=== PATIENT | female | born 1950 | race Caucasian/White ===

== ENCOUNTER 2018-05-14 16:00 | Observation (INO) | payer MEDICARE, MEDICAID ==
[~2018-05-14] VITALS: Ht 170.2 cm; Wt 59.9 kg
[~2018-05-14 16:00] MED LIST: ALBU18HF IH; ALBU2.5V2 IH; ALEN70TA5 PO; ASPI-484 PO; CARV3.12 PO; CLOP75TA PO; CLOP75TA52 PO; CLOT15CR6 TP; ELUX75TA PO; FLUT1BLS IH; HYDR25TA9 PO; LACT1CAP34 PO; LEVE500T54 PO; LISI1TAB5 PO; LISI1TAB7 PO; MELO7.5T31 PO; METO25TA4 PO; MONT10TA9 PO; NIFE60TA15 PO; OLOP5DRO OP; OMEP40CA6 PO; RISP1TAB3 PO; SERT100T PO; SIMV40TA3 PO; TRAZ50TA18 PO; UMEC1DIS IH
--- NOTE | 2018-05-14 16:06 | ER.PDOC ---
ROB MIDDLETON MD 05/14/18 1606: General Chief Complaint: Requesting Medical Care Stated Complaint: POSS DEHYDRATION/weakness, LOW BP IN CLINIC TRAVEL OUT OF US: No Time seen by MD: 16:11 Source: patient Exam Limitations: no limitations History of Present Illness Initial Comments TOOK LISINOPRIL-HCTZ -25 MG TODAY BY MISTAKE Severity: mild Modifying Factors: improves with medication, improves with movement, improves with rest Associated Symptoms: weakness Allergies: Coded Allergies: codeine (Verified Allergy, Unknown, 03/29/17) Home Meds Active Scripts Levetiracetam (KEPPRA) 500 Mg Tablet, 500 MG PO BID for 30 Days, #60 TABLET 5 Refills Prov:JAIME MATA MD 04/01/17 Simvastatin (SIMVASTATIN) 40 Mg Tablet, 1 TAB PO HS, #30 TAB 5 Refills Prov:JAIME MATA MD 03/29/17 Reported Medications Carvedilol 3.125MG (COREG 3.125MG) 3.125 Mg Tablet, 1 TAB PO BID, #180 TAB 1 Refill 05/07/18 Umeclidinium Brm/Vilanterol Tr (Anoro Ellipta 62.5-25 Mcg INH) 1 Each Disk.w.dev , 1 EACH IH DAILY24 05/07/18 Albuterol Sulfate (VENTOLIN HFA) 18 Gm Hfa.aer.ad, 18 GM IH Q6HR for SOB 04/16/18 Montelukast Sodium (MONTELUKAST SODIUM) 10 Mg Tablet, 1 TAB PO HS, #30 TAB 5 Refills 04/16/18 Nifedipine (NIFEDIPINE ER) 60 Mg Tablet.er, 90 MG PO DAILY24 04/16/18 Clopidogrel Bisulfate (PLAVIX) 75 Mg Tablet, 1 TAB PO DAILY, #90 TAB 1 Refill 04/16/18 Omeprazole (OMEPRAZOLE) 40 Mg Capsule.dr, 40 MG PO DAILY24, #1 04/16/18 Trazodone Hcl (TRAZODONE HCL) 50 Mg Tablet, 1.5 TAB PO HS, #30 TAB 1 Refill 03/29/17 Sertraline Hcl (ZOLOFT) 100 Mg Tablet, 1 TAB PO DAILY, #30 TAB 5 Refills 03/29/17 Discontinued Reported Medications Lisinopril/Hydrochlorothiazide (LISINOPRIL-HCTZ 20-25 MG TAB) 1 Each Tablet, 1 TAB PO DAILY, #30 TAB 5 Refills 04/16/18 Albuterol Sulfate (ALBUTEROL SULFATE) 2.5 Mg/3 Ml Vial.neb, 2.5 MG IH Q6HR for SOB 04/16/18 Fluticasone/Vilanterol (Breo Ellipta 200-25 Mcg INH) 1 Each Blst.w.dev, 1 EACH IH DAILY24 04/16/18 Eluxadoline (Viberzi) 75 Mg Tablet, 75 MG PO BID, TABLET 04/16/18 Alendronate Sodium (ALENDRONATE SODIUM) 70 Mg Tablet, 70 MG PO Q7D, TABLET 04/16/18 Clotrimazole/Betamethasone Dip (CLOTRIMAZOLE-BETAMETHASONE CRM) 15 Gm Cream..g. , 1 APPLIC TP BID, #30 GRAM 1 Refill 04/16/18 Lactobacillus Acidophilus (Probiotic) 1 Each Capsule, 1 EACH PO DAILY24, CAPSULE 04/16/18 Metoprolol Tartrate 25MG (LOPRESSER 25MG) 25 Mg Tablet, 1 TAB PO BID, #180 TAB 1 Refill 03/29/17 Past Medical History Medical History: other (HYPONATREMIA) Surgical History: , hysterectomy, stent LMP (females 10-50): postmenopause Family History Significant Family History: no pertinent family hx Social History Smoking: non-smoker Drug Use: none Reviewed Nursing Reviewed: Vital Signs, Abn. Noted Review of Systems Constitutional: malaise, weakness EENTM: no symptoms reported Respiratory: no symptoms reported Cardiovascular: no symptoms reported Gastrointestinal: no symptoms reported Musculoskeletal: no symptoms reported Skin: no symptoms reported Psychiatric/Neurological: no symptoms reported Hematologic/Lymphatic: no symptoms reported Immunological/Allergic: no symptoms reported All Other Systems: Reviewed and Negative Physical Exam General Appearance: No Apparent Distress EENT: eyes nml inspection Neck: Non-Tender Respiratory: chest non-tender CVS: reg rate & rhythm Gastrointestinal: Normal Bowel Sounds Rectal: Normal Exam Back: Normal Inspection Extremities: Normal Range of Motion 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 NML as Tested Skin: Normal Color Lymphatic: No Adenopathy Results/Orders Results/Orders Laboratory Tests Test 05/14/18 16:23 White Blood Count 12.4 10^3/uL (4.5-11.0) Red Blood Count 4.32 10^6/uL (4.00-5.20) Hemoglobin 13.0 g/dL (12.0-15.0) Hematocrit 36.9 % (36.0-46.0) Mean Corpuscular Volume 85.4 fL (78-100) Mean Corpuscular Hemoglobin 30.1 pg (26-34) Mean Corpuscular Hemoglobin Concent 35.2 g/dL (33-37) Red Cell Distribution Width 14.0 % (11.5-14.5) Platelet Count 552 10^3/uL (150-400) Mean Platelet Volume 9.2 fL (7.8-11.0) Neutrophils (%) (Auto) 70.0 % (41.0-85.0) Lymphocytes (%) (Auto) 20.8 % (24.0-44.0) Monocytes (%) (Auto) 7.3 % (5.0-12.0) Neutrophils # (Auto) 8.7 10^3/uL (1.8-7.7) Lymphocytes # (Auto) 2.6 10^3/uL (1.0-4.8) Monocytes # (Auto) 0.9 10^3/uL (0.3-0.8) Absolute Immature Granulocyte (auto 0.11 10^3 u/L (0-2) Eosinophils % 0.8 % (0.0-5.0) Basophils % 0.2 % (0.0-0.2) Basophils # 0.0 10^3/uL (0.0-0.1) Eosinophil Count 0.1 10^3/uL (0.0-0.2) Percent Immature Gran (Cell Imm) 0.90 % (0.00-0.50) Helicobacter pylori Screen NEGATIVE (NEGATIVE) Departure Disposition: ADMITTED INPATIENT Impression: Primary Impression: Hypokalemia Additional Impression: Hyponatremia Condition: Stable Referrals: CICI SWARTZ MD (PCP) PRIMARY CARE PROVIDER Duration or Time Spent with Pa: 2 HRS RICKI MEADE MD 05/14/18 9443: General Chief Complaint: Requesting Medical Care Stated Complaint: POSS DEHYDRATION/weakness, LOW BP IN CLINIC History of Present Illness Allergies: Coded Allergies: codeine (Verified Allergy, Unknown, 03/29/17) Home Meds Active Scripts Levetiracetam (KEPPRA) 500 Mg Tablet, 500 MG PO BID for 30 Days, #60 TABLET 5 Refills Prov:JAIME MATA MD 04/01/17 Simvastatin (SIMVASTATIN) 40 Mg Tablet, 1 TAB PO HS, #30 TAB 5 Refills Prov:JAIME MATA MD 03/29/17 Reported Medications Carvedilol 3.125MG (COREG 3.125MG) 3.125 Mg Tablet, 1 TAB PO BID, #180 TAB 1 Refill 05/07/18 Umeclidinium Brm/Vilanterol Tr (Anoro Ellipta 62.5-25 Mcg INH) 1 Each Disk.w.dev , 1 EACH IH DAILY24 05/07/18 Albuterol Sulfate (VENTOLIN HFA) 18 Gm Hfa.aer.ad, 18 GM IH Q6HR for SOB 04/16/18 Montelukast Sodium (MONTELUKAST SODIUM) 10 Mg Tablet, 1 TAB PO HS, #30 TAB 5 Refills 04/16/18 Nifedipine (NIFEDIPINE ER) 60 Mg Tablet.er, 90 MG PO DAILY24 04/16/18 Clopidogrel Bisulfate (PLAVIX) 75 Mg Tablet, 1 TAB PO DAILY, #90 TAB 1 Refill 04/16/18 Omeprazole (OMEPRAZOLE) 40 Mg Capsule.dr, 40 MG PO DAILY24, #1 04/16/18 Trazodone Hcl (TRAZODONE HCL) 50 Mg Tablet, 1.5 TAB PO HS, #30 TAB 1 Refill 03/29/17 Sertraline Hcl (ZOLOFT) 100 Mg Tablet, 1 TAB PO DAILY, #30 TAB 5 Refills 03/29/17 Discontinued Reported Medications Lisinopril/Hydrochlorothiazide (LISINOPRIL-HCTZ 20-25 MG TAB) 1 Each Tablet, 1 TAB PO DAILY, #30 TAB 5 Refills 04/16/18 Albuterol Sulfate (ALBUTEROL SULFATE) 2.5 Mg/3 Ml Vial.neb, 2.5 MG IH Q6HR for SOB 04/16/18 Fluticasone/Vilanterol (Breo Ellipta 200-25 Mcg INH) 1 Each Blst.w.dev, 1 EACH IH DAILY24 04/16/18 Eluxadoline (Viberzi) 75 Mg Tablet, 75 MG PO BID, TABLET 04/16/18 Alendronate Sodium (ALENDRONATE SODIUM) 70 Mg Tablet, 70 MG PO Q7D, TABLET 04/16/18 Clotrimazole/Betamethasone Dip (CLOTRIMAZOLE-BETAMETHASONE CRM) 15 Gm Cream..g. , 1 APPLIC TP BID, #30 GRAM 1 Refill 04/16/18 Lactobacillus Acidophilus (Probiotic) 1 Each Capsule, 1 EACH PO DAILY24, CAPSULE 04/16/18 Metoprolol Tartrate 25MG (LOPRESSER 25MG) 25 Mg Tablet, 1 TAB PO BID, #180 TAB 1 Refill 03/29/17 Departure Time of Disposition: 18:40 Disposition: 09 ADMITTED INPATIENT Impression: Primary Impression: Hypokalemia Additional Impression: Hyponatremia Condition: Stable Referrals: CICI SWARTZ MD (PCP) PRIMARY CARE PROVIDER Comments Admitted to Dr. Call Duration or Time Spent with Pa: 90 mins Critical Care Note Total Time (mins): 90 ROB MIDDLETON MD May 14, 2018 16:06 RICKI MEADE MD May 14, 2018 18:43
[2018-05-14 16:21] VITALS: BP 114/59
--- NOTE | 2018-05-14 16:27 | PCM.EKG ---
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
[2018-05-14 16:29] LABS: BASOPHIL % 0.2 % (0.0-0.2); EOSINOPHIL # 0.1 10^3/uL (0.0-0.2); EOSINOPHIL % 0.8 % (0.0-5.0); LYMPHOCYTES # 2.6 10^3/uL (1.0-4.8); LYMPHOCYTES % 20.8 % (24.0-44.0); MEAN CELL HGB 30.1 pg (26-34); MEAN CELL HGB CONCENTRATION 35.2 g/dL (33-37); MEAN CORP VOLUME 85.4 fL (78-100); MEAN PLATELET VOLUME 9.2 fL (7.8-11.0); MONOCYTES # 0.9 10^3/uL (0.3-0.8); MONOCYTES % 7.3 % (5.0-12.0); NEUTROPHIL # 8.7 10^3/uL (1.8-7.7); WHITE BLOOD CELL 12.4 10^3/uL (4.5-11.0)
[2018-05-14] MEDS ORDERED: NS 1000ML 1,000 ML ONE (16:34)
--- NOTE | 2018-05-14 16:41 | DIREP ---
PROCEDURE:CHEST 1 VIEW COMPARISON:[facility], CR, XRAY CHEST SINGLE VW, 03/29/2017, 12:19 PM. INDICATIONS:hyponatremia FINDINGS: LUNGS/PLEURA:There is hyperinflation of the lung wood consistent with COPD. No infiltrate or pleural effusion is seen. VASCULATURE:Normal. Unremarkable pulmonary vasculature. CARDIAC:Normal. No cardiac silhouette abnormality or cardiomegaly. MEDIASTINUM:Normal. No visible mass or adenopathy. BONES:Normal. No fracture or visible bony lesion. OTHER:Negative. CONCLUSION:There are findings consistent with chronic obstructive pulmonary disease without acute infiltrate. Dictated by: Arnol Dillon M.D. on 05/14/2018 at 04:38 PM
[2018-05-14 16:57] LABS: CALCIUM 9.9 mg/dL (8.4-10.5); CARBON DIOXIDE 22.1 mmol/L (20.0-32)
[2018-05-14] MEDS ORDERED: NS 1000ML 1,000 ML IV ONE (17:00)
--- NOTE | 2018-05-14 18:08 | NUR ---
DR. WILLOUGHBY: EDP ON PHONE WITH DR. WILLOUGHBY. ADMIT UNDER DR. WILLOUGHBY CARE. DX: HYPOKALEMIA.
[2018-05-14] MEDS ORDERED: POTASSIUM CHLORIDE ONE (18:20)
[2018-05-14] MEDS ORDERED: KCL 20MEQ/100ML 100 ML IV ONE (18:22)
--- NOTE | 2018-05-14 18:39 | NUR ---
PO KCL: ORDER NOT TRANSFERRING OVER TO MAR. KCL 40 MEQ GIVEN PER EDP ORDERS.
--- NOTE | 2018-05-14 18:40 | NUR ---
KCL IV: MED ORDERS NOT TRANSFERRING OVER TO EMAR. KCL 20 MEQ/100ML NS STARTED PER EDP ORDERS.
[2018-05-14] MEDS ORDERED: KCL 20MEQ/100ML 100 ML IV STA (18:43)
[2018-05-14] MEDS ORDERED: KLOR-CON 10 PO STA (18:43)
[2018-05-14] MEDS ORDERED: NS 1000ML/KCL 20MEQ 1,000 ML IV STA (18:43)
--- NOTE | 2018-05-14 18:50 | NUR ---
ARRIVAL ARRIVAL TO FLOOR VIA W/C. REPORT RECEIVED FROM CARLOS PETERSEN ASSUMED CARE OF PT
[2018-05-14 19:05] VITALS: BP 140/63
[2018-05-14] MEDS ORDERED: PROTONIX PO SCH (21:30)
[2018-05-14] MEDS ORDERED: PROCARDIA PO SCH (21:30)
[2018-05-14] MEDS ORDERED: POTASSIUM CHLORIDE PO SCH (21:30)
[2018-05-14] MEDS ORDERED: MAGNESIUM SULFATE 50 ML IV ONE (21:30)
--- NOTE | 2018-05-14 22:34 | HPH ---
ADMIT DATE: 05/14/2018 The patient is being placed under observation to Med-Surg. PRIMARY CARE PHYSICIAN: Gerardo. ADMITTING DIAGNOSES: Hypokalemia with hyponatremia with weakness and COPD. HISTORY OF PRESENT ILLNESS: Please refer to the H and P that was done by Dr. Struod on 04/17/2018 when she was admitted for a similar problem and this will be an addendum since this is less than a 30-day readmit and the addendum is as follows: The patient has been in and out of the hospital for 3 times already in the past couple of months for some electrolyte disturbances and her feeling weak with having diarrhea and taking thiazide diuretics. For some reason, this last visit, she was told to stop her thiazide diuretic and she was improving with her electrolytes. She went home and forgot and started to take a thiazide diuretic for the past 3 days. She states that she has been drinking lots of water to stay hydrated as well. She felt very weak again and came back to the ER with a low potassium and sodium levels. She denies any fevers. No chest pain. No shortness of breath. No abdominal pains. No diarrhea. No constipation. No melena. No hematochezia. No dysuria. PAST MEDICAL HISTORY: Significant for hypertension, hyperlipidemia, COPD with tobacco dependence, peripheral vascular disease, GERD. She does have a history of hepatitis C, but she was successfully treated per her, depression, osteoporosis. PAST SURGICAL HISTORY: Hysterectomy, bilateral wrist ORIF and tibial ORIF. SOCIAL HISTORY: She smokes, but up to a pack a day, lives at home. No alcohol, no illicit drugs reported. ALLERGIES: CODEINE. FAMILY HISTORY: Asked and noncontributory for this admission. PHYSICAL EXAMINATION: VITAL SIGNS: When she came in temperature was 97.7, pulse rate 61, respirations 18, blood pressure 114/59, O2 sats of 98%. My physical exam is as follows: GENERAL: She is in no acute distress. She is awake. She is alert. HEENT: Oropharynx is clear. NECK: Supple. No JVD. No bruits. HEART: S1, S2 audible. LUNGS: Clear bilaterally. ABDOMEN: Good bowel sounds, soft abdomen. No rebound. No guarding. EXTREMITIES: She has some mild edema to her legs with some varicosities noted. LABORATORY DATA: Labs were drawn. White count was 12,400, hemoglobin of 13 and platelet count of 552. Coags were normal. D-dimer is elevated at 0.82. Chemistry panel shows sodium 125, potassium 2.4, BUN 7, creatinine 1.37. Troponin was 0.06. ProBNP was 1283. Albumin 2.7. She had a chest x-ray that did not show any acute abnormalities. Some COPD noted. ASSESSMENT AND PLAN: We have this female with hypokalemia and hyponatremia with weakness with water intoxication. We will withhold water on her, replace potassium with sodium and follow her clinically in the hospital overnight and see if she will be ready for discharge by tomorrow. Yi Call MD DR: CHARISMA/sania JOB# [id number]
[2018-05-14 23:46] VITALS: BP 122/73
[2018-05-15] MEDS ORDERED: VENTOLIN HFA IH SCH
[2018-05-15 03:41] VITALS: BP 144/60
[2018-05-15 07:55] VITALS: BP 132/61
[2018-05-15] MEDS ORDERED: KLOR-CON 10 PO SCH (09:00)
[2018-05-15] MEDS ORDERED: ZOLOFT PO SCH (09:00)
[2018-05-15] MEDS ORDERED: KEPPRA PO SCH (09:00)
[2018-05-15] MEDS ORDERED: PLAVIX PO SCH (09:00)
[2018-05-15] MEDS ORDERED: COREG PO SCH (09:00)
--- NOTE | 2018-05-15 10:00 | NUR ---
DISCHARGE PLAN CM VISITED WITH PATIENT CONCERNING HER DISCHARGE PLAN AND NEED. PATIENT STATED SHE IS STILL LIVING @ HOME WITH HER ROOMMATES. SHE STATED SHE IS ROBISON INDEPENDENT ON ADLS AND SHE HAS A WALKER WITH WHEELS THAT SHE USES NEEDED FOR AMBULATION ASSISTANCE. PATIENT IS RECEIVING FOOD STAMP BENEFITS AND HAS CURRENT HEALTH INSURANCE. SHE DENIES NEEDING ADDITIONAL ASSISTANCE/RESOURCES @ THIS TIME. PATIENT IS ALSO CURRENTLY ON [facility] WITH PT, OT AND SPEECH THERAPY SERVICES. CURRENT GOAL FOR PATIENT IS TO DISCHARGE BACK HOME TO [facility]OUTINE CARE WITH CURRENT SERVICES IN PLACE PER PATIENT REQUEST. PATRIC REACHED OUT TO [facility] AND SPOKE TO KALLI PETERSEN WHO STATED THEY WOULD WATCH PATIENT CLOSELY ONCE DISCHARGE @ HOME, BUT NURSING HAD CONCERNS REGARDING HER HOME ENVIRONMENT. PATRIC THEN REACHED OUT TO Ruma CROWELL LMSW REGARDING 'S CONCERNS AND CONSULT RECEIVED PER DR. WILLOUGHBY FOR MONETARY ABUSE. PTARIC WILL CONTINUE TO FOLLOW.
[2018-05-15 10:45] VITALS: BP 154/75
--- NOTE | 2018-05-15 10:48 | NUR ---
SOCIAL SERVICE CONSULT: SS RECEIVED CONSULT DUE TO SUSPECTED MONETARY ABUSE. SS VISITED WITH PT LAST HOSPITAL ADMISSION REGARDING CONCERNS WITH PT'S HOME SITUATION AND CONSULTED [facility] WHOM STATED THEY WOULD KEEP AN EYE OUT ON PT AND MONITOR HER ROOMMATES/LIVING CONDITION. SINCE PT WAS READMITTED AND THERE ARE STILL CONCERNS REGARDING HOME SITUATION AND FINANCIAL EXPLOITATION, AN APS REPORT WAS PLACE SO THEY CAN FURTHER INVESTIGATION AND ASSIST PT. APS REPORT WAS PLACE WITH [employer] WORKER ID [id number], REFERENCE NUMBER [id number].
[2018-05-15] MEDS ORDERED: ZOFRAN IV PRN (13:00)
[2018-05-15] MEDS ORDERED: POTA20TA14 PO (13:14)
--- NOTE | 2018-05-15 15:10 | NUR ---
DISCHARGE PT D/C AT THIS TIME. EDUCATED PT ON NEW PRESCRIPTION FOR POTASSIUM. STATES UNDERSTANDING AND DENIES ANY QUESTIONS. WHEELED TO PRIVATE VEHICLE IN STABLE CONDITION.
[2018-05-15] MEDS ORDERED: VENTOLIN IH SCH (15:11)
[2018-05-15 15:13] VITALS: BP 154/75
--- NOTE | 2018-05-15 17:48 | DSH ---
DATE OF DISCHARGE: 05/15/2018 ADMITTING DIAGNOSES: Weakness with diarrhea and hypokalemia, hyponatremia with water intoxication and history of chronic obstructive pulmonary disease. DISCHARGE DIAGNOSES: Hypokalemia and hyponatremia, resolved with chronic diarrhea and chronic obstructive pulmonary disease. HOSPITAL COURSE: As follows: The patient is a 68-year-old female who has been in the hospital 4 times now in the past 2 months for similar problems. She does have chronic diarrhea and she came in with potassium of 2.4 with low sodium levels. She admitted to me that she was drinking lots of water to stay hydrated. I explained to her that: Due to her electrolyte disturbances that she should not be drinking a lot of water anymore to stay hydrated that she should hydrate with other liquids. We gave her IV sodium chloride with potassium IV and p.o. Her potassium today is normal at 3.8 and her sodium levels are normal too. I explained to her again to continue her home diet except not to drink free water by itself a lot at home and she understands this. She did complain about her chronic diarrhea and I explained to her that since she has been scoped in the past by GI that she probably needs to go back to GI to get scoped again to deal with her chronic nausea and chronic diarrhea, but at this time her sodium and her potassium are both corrected. She will be discharged today. I am going to put her on some potassium pills to go home with, stay hydrated, stay away from lot of free water and I have asked her to follow up with her PCP, Dr. Carrillo, next week, so she can be referred to her GI specialist in the near future for possible endoscopy for her chronic nausea and diarrhea. Yi Call MD DR: CHARISMA/sania JOB# [id number]
[2018-05-15] MEDS ORDERED: ZOCOR PO SCH (21:00)
[2018-05-15] MEDS ORDERED: DESYREL PO SCH (21:00)
[2018-05-15] MEDS ORDERED: SINGULAIR PO SCH (21:00)
== END 2018-05-15 15:31 | disposition home or self-care (01) ==
LOC: ER 16:00 → UNDOADMOB 18:20 → MS 18:20
PROVIDERS: ADMIT Pediatrics; ATTEND Pediatrics
DX: E87.6 Hypokalemia (principal); E87.1 Hypo-osmolality and hyponatremia; E78.5 Hyperlipidemia, unspecified; F17.210 Nicotine dependence, cigarettes, uncomplicated; I10 Essential (primary) hypertension; I73.9 Peripheral vascular disease, unspecified; J44.9 Chronic obstructive pulmonary disease, unspecified; K21.9 Gastro-esophageal reflux disease without esophagitis; M81.0 Age-related osteoporosis without current pathological fracture; F32.9 Major depressive disorder, single episode, unspecified; R19.7 Diarrhea, unspecified; Z88.8 Allergy status to other drugs, medicaments and biological substances; Z90.710 Acquired absence of both cervix and uterus
CPT/HCPCS: 36415; 71045; 80048; 80053; 82550; 82553; 83880; 84484; 85025; 85379; 85610; 85730; 86677; 93005; 96365; 96366; 96368; 96375; 99291; 99292; G0378; J2405; J3475; J3480; J7030

== ENCOUNTER 2018-05-20 18:09 | Emergency (ER) | payer MEDICARE, MEDICAID ==
[~2018-05-20] VITALS: Ht 170.2 cm; Wt 56.2 kg
[~2018-05-20 18:09] MED LIST changes: +POTA20TA14 PO
[2018-05-20 18:49] VITALS: BP 147/84
[2018-05-20] MEDS ORDERED: ZOFRAN ODT ONE (18:53)
--- NOTE | 2018-05-20 18:57 | NUR ---
CLINT VERBAL ORDER FROM DR GONZALEZ FOR ZOFRAN ODT 4MG GIVEN AT THIS TIME.
[2018-05-20] MEDS ORDERED: ZOFRAN ODT SL STA (19:12)
--- NOTE | 2018-05-20 19:22 | ER.PDOC ---
General Chief Complaint: General Complaint Stated Complaint: LOW BP TRAVEL OUT OF US: No Time seen by MD: 19:00 Source: patient History of Present Illness Initial Comments pt states that she has chronic diarrhea and has nausea and vomiting such that she has problems with hypokalemia and dehydration Timing/Duration: constant Severity: mild Modifying Factors: improves with eating Allergies: Coded Allergies: codeine (Verified Allergy, Unknown, 03/29/17) Home Meds Active Scripts Potassium Chloride (POTASSIUM CHLORIDE) 20 Meq Tab.er.prt, 20 MEQ PO DAILY24, # 30 TAB 1 Refill Prov:JAYLEN WILLOUGHBY MD 05/15/18 Levetiracetam (KEPPRA) 500 Mg Tablet, 500 MG PO BID for 30 Days, #60 TABLET 5 Refills Prov:JAIME MATA MD 04/01/17 Simvastatin (SIMVASTATIN) 40 Mg Tablet, 1 TAB PO HS, #30 TAB 5 Refills Prov:JAIME MATA MD 03/29/17 Reported Medications Carvedilol 3.125MG (COREG 3.125MG) 3.125 Mg Tablet, 1 TAB PO BID, #180 TAB 1 Refill 05/07/18 Umeclidinium Brm/Vilanterol Tr (Anoro Ellipta 62.5-25 Mcg INH) 1 Each Disk.w.dev , 1 EACH IH DAILY24 05/07/18 Albuterol Sulfate (VENTOLIN HFA) 18 Gm Hfa.aer.ad, 18 GM IH Q6HR for SOB 04/16/18 Montelukast Sodium (MONTELUKAST SODIUM) 10 Mg Tablet, 1 TAB PO HS, #30 TAB 5 Refills 04/16/18 Nifedipine (NIFEDIPINE ER) 60 Mg Tablet.er, 90 MG PO DAILY24 04/16/18 Clopidogrel Bisulfate (PLAVIX) 75 Mg Tablet, 1 TAB PO DAILY, #90 TAB 1 Refill 04/16/18 Omeprazole (OMEPRAZOLE) 40 Mg Capsule.dr, 40 MG PO DAILY24, #1 04/16/18 Trazodone Hcl (TRAZODONE HCL) 50 Mg Tablet, 1.5 TAB PO HS, #30 TAB 1 Refill 03/29/17 Sertraline Hcl (ZOLOFT) 100 Mg Tablet, 1 TAB PO DAILY, #30 TAB 5 Refills 03/29/17 Past Medical History Medical History: asthma, CVA/TIA/stroke, cardiac problems, COPD, GERD, high cholesterol, hypertension Surgical History: cardiac cath, appendectomy, hysterectomy LMP (females 10-50): hysterectomy Social History Smoking: cigarettes, less than 1 pack/day Alcohol Use: none Drug Use: marijuana Review of Systems Constitutional: weakness EENTM: no symptoms reported Respiratory: no symptoms reported Cardiovascular: no symptoms reported Gastrointestinal: see HPI, diarrhea, nausea, vomiting Skin: no symptoms reported Psychiatric/Neurological: no symptoms reported Hematologic/Lymphatic: no symptoms reported Physical Exam General Appearance: Mild Distress EENT: eyes nml inspection Neck: Non-Tender, Full Range of Motion CVS: reg rate & rhythm, no murmur, no gallop Rectal: Normal Exam Back: Normal Inspection Extremities: Normal Range of Motion Neurologic/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 NML as Tested, No Motor/Sensory Deficits Skin: Normal Color Lymphatic: No Adenopathy Results/Orders Results/Orders Laboratory Tests Test 05/20/18 19:23 05/20/18 20:12 White Blood Count 9.3 10^3/uL (4.5-11.0) Red Blood Count 3.83 10^6/uL (4.00-5.20) Hemoglobin 11.8 g/dL (12.0-15.0) Hematocrit 34.0 % (36.0-46.0) Mean Corpuscular Volume 88.8 fL (78-100) Mean Corpuscular Hemoglobin 30.8 pg (26-34) Mean Corpuscular Hemoglobin Concent 34.7 g/dL (33-37) Red Cell Distribution Width 14.3 % (11.5-14.5) Platelet Count 520 10^3/uL (150-400) Mean Platelet Volume 9.6 fL (7.8-11.0) Neutrophils (%) (Auto) 63.1 % (41.0-85.0) Lymphocytes (%) (Auto) 24.9 % (24.0-44.0) Monocytes (%) (Auto) 10.1 % (5.0-12.0) Neutrophils # (Auto) 5.8 10^3/uL (1.8-7.7) Lymphocytes # (Auto) 2.3 10^3/uL (1.0-4.8) Monocytes # (Auto) 0.9 10^3/uL (0.3-0.8) Absolute Immature Granulocyte (auto 0.03 10^3 u/L (0-2) Eosinophils % 1.1 % (0.0-5.0) Basophils % 0.5 % (0.0-0.2) Basophils # 0.1 10^3/uL (0.0-0.1) Eosinophil Count 0.1 10^3/uL (0.0-0.2) Sodium Level 133 mmol/L (132-145) Potassium Level 3.8 mmol/L (3.6-5.2) Chloride Level 102.0 mmol/L (96-109) Carbon Dioxide Level 21.1 mmol/L (20.0-32) Anion Gap 13.7 Blood Urea Nitrogen 5 mg/dL (7-18) Creatinine 1.09 mg/dL (0.59-1.40) Estimated GFR () 60.6 (>/=60) BUN/Creatinine Ratio 4.0 Glucose Level 110 mg/dL (70-110) Calcium Level 10.0 mg/dL (8.4-10.5) Total Bilirubin 0.3 mg/dL (0.2-1.0) Aspartate Amino Transf (AST/SGOT) 12 U/L (0-35) Alanine Aminotransferase (ALT/SGPT) 13 U/L (12-78) Alkaline Phosphatase 100 U/L (50-136) Total Protein 6.2 g/dL (6.4-8.2) Albumin 2.5 g/dL (3.4-5.0) Globulin 3.7 Percent Immature Gran (Cell Imm) 0.30 % (0.00-0.50) Urine Collection Type VOID Urine Color YELLOW (YELLOW) Urine Appearance CLOUDY (CLEAR) Urine Bilirubin 1 MG/DL (NEGATIVE) Urine Ictotest NEGATIVE (NEGATIVE) Urine Ketones 5 mg/dL (NEGATIVE) Urine Specific [place] 1.020 (1.005-1.035) Urine pH 5 (5.0-6.0) Urine Protein 30 mg/dL (NEGATIVE) Urine Urobilinogen 4.0 (NEGATIVE) Urine Nitrate NEGATIVE (NEGATIVE) Urine Leukocyte Esterase 100/ul 1+ (NEGATIVE) Urine Blood NEGATIVE (NEGATIVE) Urine RBC 5-10 RBC/HPF (NONE SEEN) Urine WBC 2-5 WBC/HPF (0-2) Urine Squamous Epithelial Cells MANY #/HPF (FEW) Urine Calcium Oxalate Crystals FEW (NONE SEEN) Urine Bacteria MANY (NONE SEEN) Urine Hyaline Casts 5-10 (NONE SEEN) Urine Glucose NORMAL (NEGATIVE) Administered Medications Medications (Trade) Dose Ordered Sig/Jacques Route PRN Reason Start Time Stop Time Status Last Admin Dose Admin Ondansetron HCl (Zofran Odt) 4 mg STAT STAT SL 05/20/18 19:12 05/20/18 19:19 DC 05/20/18 19:34 Ceftriaxone Sodium 1000 mg/ Sodium Chloride 100 ml @ 100 mls/hr OT STAT IV 05/20/18 20:39 05/20/18 21:38 DC 05/20/18 20:54 Progress Progress discussed labs, start rocephin and follow up with cephalexin Departure Time of Disposition: 22:16 Disposition: 01 HOME, SELF-CARE Impression: Primary Impression: Urinary tract infection Qualified Codes: N30.00 - Acute cystitis without hematuria Condition: Improved Referrals: CICI CARRILLO MD (PCP) PRIMARY CARE PROVIDER Additional Instructions: follow up with Dr Carrillo Duration or Time Spent with Pa: 20 WALDEMAR GONZALEZ MD May 20, 2018 19:22
[2018-05-20] MEDS ORDERED: LACTATED RINGERS 1,000 ML IV SCH (19:30)
[2018-05-20 19:40] LABS: BASOPHIL # 0.1 10^3/uL (0.0-0.1); BASOPHIL % 0.5 % (0.0-0.2); EOSINOPHIL # 0.1 10^3/uL (0.0-0.2); EOSINOPHIL % 1.1 % (0.0-5.0); HEMOGLOBIN 11.8 g/dL (12.0-15.0); LYMPHOCYTES # 2.3 10^3/uL (1.0-4.8); LYMPHOCYTES % 24.9 % (24.0-44.0); MEAN CELL HGB 30.8 pg (26-34); MEAN CELL HGB CONCENTRATION 34.7 g/dL (33-37); MEAN CORP VOLUME 88.8 fL (78-100); MEAN PLATELET VOLUME 9.6 fL (7.8-11.0); MONOCYTES # 0.9 10^3/uL (0.3-0.8); MONOCYTES % 10.1 % (5.0-12.0); NEUTROPHIL # 5.8 10^3/uL (1.8-7.7); NEUTROPHILS % 63.1 % (41.0-85.0); RED CELL DISTRIBUTION WIDTH 14.3 % (11.5-14.5); WHITE BLOOD CELL 9.3 10^3/uL (4.5-11.0)
[2018-05-20] MEDS ORDERED: LACTATED RINGERS 1,000 ML ONE (19:44)
[2018-05-20 19:55] LABS: CARBON DIOXIDE 21.1 mmol/L (20.0-32)
[2018-05-20 20:12] LABS: BILIRUBIN,URINE 1 MG/DL (NEGATIVE)
[2018-05-20 20:19] LABS: APPEARANCE,URINE CLOUDY (CLEAR); UA COLOR YELLOW (YELLOW)
[2018-05-20] MEDS ORDERED: ROCEPHIN 1,000 MG in NS 100ML 100 ML IV STA (20:39)
[2018-05-20] MEDS ORDERED: ROCEPHIN ONE (20:49)
[2018-05-20] MEDS ORDERED: NS 100ML 100 ML IV ONE (20:49)
[2018-05-20 22:48] VITALS: BP 147/84
== END 2018-05-20 22:45 | disposition home or self-care (01) ==
LOC: ER 18:09
DX: N39.0 Urinary tract infection, site not specified (principal); E87.6 Hypokalemia; E86.0 Dehydration; J44.9 Chronic obstructive pulmonary disease, unspecified; E78.00 Pure hypercholesterolemia, unspecified; I10 Essential (primary) hypertension; K21.9 Gastro-esophageal reflux disease without esophagitis; F17.210 Nicotine dependence, cigarettes, uncomplicated; F12.10 Cannabis abuse, uncomplicated; Z88.5 Allergy status to narcotic agent; Z86.73 Personal history of transient ischemic attack (TIA), and cerebral infarction without residual deficits; Z90.710 Acquired absence of both cervix and uterus; Z79.899 Other long term (current) drug therapy
CPT/HCPCS: 36415; 80053; 81000; 85025; 87086; 96365; 99284; J0696; J7050; J7120; Q0162

== ENCOUNTER 2018-07-09 12:40 | Inpatient (IN) | payer MEDICARE, MEDICAID ==
[~2018-07-09] VITALS: Ht 170.2 cm; Wt 69.9 kg
--- NOTE | 2018-07-09 12:50 | NUR ---
ARRIVAL PATIENT ARRIVED TO ED6 VIA GURNEY BY [facility], C/O OF ABD PAIN THAT STARTED TODAY, HAS HAD DIARRHEA FOR THE PAST SEVERAL DAYS AND WAS TAKING IMMODIUM, DID HAVE BM TODAY. HERE FOR FURTHER EVAL.
[2018-07-09 12:52] VITALS: BP 153/117
[2018-07-09] MEDS ORDERED: ZOFRAN IV STA (13:06)
[2018-07-09] MEDS ORDERED: SUBLIMAZE IV STA (13:06)
--- NOTE | 2018-07-09 13:09 | ER.PDOC ---
General Chief Complaint: Abdomen Pain Stated Complaint: ABD PAIN Time seen by MD: 13:00 Source: patient Exam Limitations: no limitations History of Present Illness Timing/Duration: 4-6 hours Severity/Quality: moderate Radiation: no radiation Associated Symptoms: nausea/vomiting Exacerbated by: movements, cough, deep breaths Relieved By: remaining still Allergies: Coded Allergies: codeine (Verified Allergy, Unknown, 03/29/17) Home Meds Active Scripts Potassium Chloride (POTASSIUM CHLORIDE) 20 Meq Tab.er.prt, 20 MEQ PO DAILY24, # 30 TAB 1 Refill Prov:JAYLEN WILLOUGHBY MD 05/15/18 Levetiracetam (KEPPRA) 500 Mg Tablet, 500 MG PO BID for 30 Days, #60 TABLET 5 Refills Prov:JAIME MATA MD 04/01/17 Simvastatin (SIMVASTATIN) 40 Mg Tablet, 1 TAB PO HS, #30 TAB 5 Refills Prov:JAIME MATA MD 03/29/17 Reported Medications Carvedilol 3.125MG (COREG 3.125MG) 3.125 Mg Tablet, 1 TAB PO BID, #180 TAB 1 Refill 05/07/18 Umeclidinium Brm/Vilanterol Tr (Anoro Ellipta 62.5-25 Mcg INH) 1 Each Disk.w.dev , 1 EACH IH DAILY24 05/07/18 Albuterol Sulfate (VENTOLIN HFA) 18 Gm Hfa.aer.ad, 18 GM IH Q6HR for SOB 04/16/18 Montelukast Sodium (MONTELUKAST SODIUM) 10 Mg Tablet, 1 TAB PO HS, #30 TAB 5 Refills 04/16/18 Nifedipine (NIFEDIPINE ER) 60 Mg Tablet.er, 90 MG PO DAILY24 04/16/18 Clopidogrel Bisulfate (PLAVIX) 75 Mg Tablet, 1 TAB PO DAILY, #90 TAB 1 Refill 04/16/18 Omeprazole (OMEPRAZOLE) 40 Mg Capsule.dr, 40 MG PO DAILY24, #1 04/16/18 Trazodone Hcl (TRAZODONE HCL) 50 Mg Tablet, 1.5 TAB PO HS, #30 TAB 1 Refill 03/29/17 Sertraline Hcl (ZOLOFT) 100 Mg Tablet, 1 TAB PO DAILY, #30 TAB 5 Refills 03/29/17 Vital Signs First Vital Signs Date Time Temp Pulse Resp B/P (MAP) Pulse Ox O2 Delivery O2 Flow Rate FiO2 07/09/18 12:49 97.5 104 20 97.5 07/09/18 12:50 97 Room Air 07/09/18 12:52 153/117 (129) Last Vital Signs Date Time Temp Pulse Resp B/P (MAP) Pulse Ox O2 Delivery O2 Flow Rate FiO2 07/09/18 12:52 97.8 104 20 153/117 (129) 97 Room Air 97.8 Past Medical History Medical History: CVA/TIA/stroke, cardiac problems, hypertension Surgical History: appendectomy, hysterectomy, other LMP (females 10-50): postmenopause Social History Smoking: cigarettes Alcohol Use: none Drug Use: marijuana Reviewed Nursing Reviewed: Vital Signs, Abn. Noted All Other Systems: Reviewed and Negative Physical Exam General Appearance: No Apparent Distress, WD/WN HEENT: PERRL/EOMI, Normal ENT Inspection, TMs Normal, Pharynx Normal Neck: Non-Tender, Full Range of Motion, Supple, Normal Inspection Respiratory: chest non-tender, lungs clear, normal breath sounds, no respiratory distress, no accessory muscle use Cardiovascular: Normal Peripheral Pulses, Regular Rate, Rhythm, No Edema, No Gallop, No JVD, No Murmur Gastrointestinal: Tenderness (DIFFUSE) Back: Normal Inspection, No CVA Tenderness, No Vertebral Tenderness Extremities: Normal Range of Motion, Non-Tender, Normal Inspection, No Pedal Edema, No Calf Tenderness, Normal Capillary Refill, Pelvis Stable Neurologic/Psychiatric: mat sewer II-XII NML as Tested, No Motor/Sensory Deficits, Alert, Normal Mood/Affect, Oriented x 3 Skin: Normal Color, Warm/Dry Lymphatic: No Adenopathy Consult/PCP Time Consult/PCP Called: 13:33 Consult/PCP: DR SMALL Course Sepsis Screening Results: Posi: POSITIVE SEPSIS RISK Sepsis Qualifier/Stage: NO DEFINITE RISK Vitals & review Data Vital Sign - Last 24 Hours 07/09/18 07/09/18 07/09/18 12:49 12:50 12:52 Temp 97.5 97.8 97.8 97.5 97.8 97.8 Pulse 104 104 104 Resp 20 20 20 B/P (MAP) 153/117 (129) Pulse Ox 97 97 O2 Delivery Room Air Room Air Departure Time of Disposition: 15:33 Disposition: 09 ADMITTED INPATIENT Impression: Primary Impression: Pancreatitis Condition: Improved Referrals: CICI SWARTZ MD (PCP) PRIMARY CARE PROVIDER Duration or Time Spent with Pa: 3 HRS ROB MIDDLETON MD Jul 09, 2018 13:09
[2018-07-09 13:17] LABS: BASOPHIL % 0.2 % (0.0-0.2); EOSINOPHIL # 0.1 10^3/uL (0.0-0.2); EOSINOPHIL % 0.5 % (0.0-5.0); HEMOGLOBIN 14.3 g/dL (12.0-15.0); LYMPHOCYTES # 0.8 10^3/uL (1.0-4.8); LYMPHOCYTES % 7.2 % (24.0-44.0); MEAN CELL HGB 30.7 pg (26-34); MEAN CELL HGB CONCENTRATION 34.5 g/dL (33-37); MEAN CORP VOLUME 88.8 fL (78-100); MEAN PLATELET VOLUME 10.3 fL (7.8-11.0); MONOCYTES # 0.5 10^3/uL (0.3-0.8); MONOCYTES % 4.2 % (5.0-12.0); NEUTROPHIL # 10.2 10^3/uL (1.8-7.7); NEUTROPHILS % 87.7 % (41.0-85.0); RED CELL DISTRIBUTION WIDTH 14.8 % (11.5-14.5); WHITE BLOOD CELL 11.6 10^3/uL (4.5-11.0)
[2018-07-09] MEDS ORDERED: ZOFRAN ONE (13:17)
[2018-07-09] MEDS ORDERED: SUBLIMAZE ONE (13:18)
[2018-07-09] MEDS ORDERED: NS 1000ML 1,000 ML IV ONE (13:30)
[2018-07-09 13:34] LABS: CALCIUM 9.3 mg/dL (8.4-10.5)
[2018-07-09 14:00] VITALS: BP 191/78
--- NOTE | 2018-07-09 14:56 | DIREP ---
PROCEDURE:CT ABD/PELVIS WITH CONTRAST TECHNIQUE:Following the intravenous administration of contrast material, arterial phase cuts were obtained through the abdomen, followed by venous phase cuts through the abdomen and pelvis. The images were viewed at lung and soft tissue settings. Sagittal and coronal reconstructions are provided. COMPARISON:None. INDICATIONS:DIFFUSE ABD PAIN FINDINGS: LOWER CHEST:The lung bases are clear. LIVER:Normal. BILIARY:Normal. PANCREAS:While the pancreas is normal in size and contour, there are extensive edematous changes in the peripancreatic fat. SPLEEN:Normal. URINARY TRACT:Normal. ADRENALS:Normal. AORTA/VASCULAR:Extensive arterial calcifications. Moderate amount of plaque in the abdominal aorta. RETROPERITONEUM:Normal. BOWEL/MESENTERY:Small amount of ascites in the deep pelvis. The 1st and 2nd portions of the duodenum are distended. ABDOMINAL WALL:Normal. PELVIS:Previous hysterectomy. BONES:Lower level lumbar facet arthrosis. OTHER:Normal. CONCLUSION: 1. Extensive edematous changes in the peripancreatic fat consistent with pancreatitis. Please correlate clinically. 2. Small amount of ascites in the posterior pelvis in the cul de sac. 3. Distention of the proximal duodenum. 4. Atherosclerosis. 5. Previous hysterectomy. Dictated by: Patrick Pratt M.D. on 07/09/2018 at 02:39 PM
[2018-07-09 15:16] VITALS: BP 191/91
--- NOTE | 2018-07-09 15:17 | NUR ---
STATUS PATIENT LYING UP RIGHT POSITION, NO DISTRESS NOTED.
--- NOTE | 2018-07-09 15:21 | NUR ---
SMALL DOCTOR KANE DISCUSSING POSSIBLE ADMISSION WITH DOCTOR GEOVANNY.
[2018-07-09] MEDS ORDERED: ZOFRAN IV PRN (15:30)
[2018-07-09] MEDS ORDERED: SUBLIMAZE IV PRN (15:30)
[2018-07-09 15:57] VITALS: BP 190/82
[2018-07-09 16:05] VITALS: BP 133/73
--- NOTE | 2018-07-09 16:05 | NUR ---
ARRIVAL PT ARRIVED TO FLOOR VIA W/C REPORT RECEIVED ASSUMED CARE OF PT
[2018-07-09] MEDS ORDERED: LACTATED RINGERS 1,000 ML ONE (16:35)
[2018-07-09] MEDS: LACTATED RINGERS 1,000 ML IV SCH (16:49)
[2018-07-09 20:07] VITALS: BP 172/67
[2018-07-09] MEDS: ZOFRAN IV PRN (22:40)
[2018-07-10 00:22] VITALS: BP 165/72
[2018-07-10] MEDS ORDERED: LACTATED RINGERS 1,000 ML ONE ×2 (02:19→18:04)
[2018-07-10] MEDS: LACTATED RINGERS 1,000 ML IV SCH ×2 (02:26→11:30)
[2018-07-10] MEDS: ZOFRAN IV PRN ×4 (02:32→19:52)
[2018-07-10 04:41] LABS: BASOPHIL % 0.1 % (0.0-0.2); EOSINOPHIL # 0.3 10^3/uL (0.0-0.2); EOSINOPHIL % 1.8 % (0.0-5.0); HEMOGLOBIN 11.5 g/dL (12.0-15.0); LYMPHOCYTES # 1.2 10^3/uL (1.0-4.8); LYMPHOCYTES % 8.4 % (24.0-44.0); MEAN CELL HGB 30.9 pg (26-34); MEAN CELL HGB CONCENTRATION 34.4 g/dL (33-37); MEAN CORP VOLUME 89.8 fL (78-100); MEAN PLATELET VOLUME 10.4 fL (7.8-11.0); MONOCYTES # 0.9 10^3/uL (0.3-0.8); MONOCYTES % 6.6 % (5.0-12.0); NEUTROPHIL # 11.7 10^3/uL (1.8-7.7); RED CELL DISTRIBUTION WIDTH 14.8 % (11.5-14.5); WHITE BLOOD CELL 14.1 10^3/uL (4.5-11.0)
[2018-07-10 04:46] VITALS: BP 160/65
[2018-07-10 04:49] LABS: CALCIUM 8.4 mg/dL (8.4-10.5); CARBON DIOXIDE 24.3 mmol/L (20.0-32)
[2018-07-10 07:30] LABS: BILIRUBIN,URINE NEGATIVE (NEGATIVE); UROBILINOGEN,URINE NORMAL (NEGATIVE)
--- NOTE | 2018-07-10 07:30 | NUR ---
REPORT REPORT RECEIVED FROM ZENA PETERSEN.
[2018-07-10 07:54] LABS: APPEARANCE,URINE CLEAR (CLEAR); UA COLOR YELLOW (YELLOW)
[2018-07-10 09:12] VITALS: BP 146/57
--- NOTE | 2018-07-10 09:30 | NUR ---
DISCHARGE PLAN CASE MANAGEMENT VISITED WITH PATIENT CONCERNING DISCHARGE PLAN AND NEEDS. LIVES AT HOME CURRENTLY WITH ANOTHER COUPLE WHO WILL BE MOVING OUT AT THE END OF THIS MONTH. INDEPENDENT OF ADLS. CURRENTLY HAS [facility] IN PLACE. HAS ALL DME INCLUDING WALKER, SHOWER CHAIR, AND NEBULIZER. DENIES NEED FOR HOME OXYGEN. DISCHARGE GOAL IS TO DISCHARGE HOME AND CONTINUE SELF CARE WITH [facility] TO FOLLOW. DENIES FURTHER NEEDS AT THIS TIME. CASE MANAGEMENT WILL CONTINUE TO FOLLOW DISCHARGE NEEDS.
[2018-07-10 12:35] VITALS: BP 145/59
--- NOTE | 2018-07-10 14:11 | DIREP ---
PROCEDURE:US ABDOMEN LIMITED(SINGLE ORGAN-QUAD) COMPARISON:[facility], CT, CT ABD/PELVIS W/ CONTRAST, 07/09/2018, 02:06 PM. INDICATIONS:Pancreatitis FINDINGS: CBD:0.2 cm GALLBLADDER:0.3-0.4 cm RIGHT KIDNEY:8.8 x 4.9 x 4.1 cm PANCREAS:Seen slight fullness of the pancreatic head and body may be consistent with the patient's clinical history of pancreatitis. No focal lesions are identified. The pancreatic tail is obscured by bowel gas shadowing. LIVER:Increased hepatic echotexture consistent with hepatic steatosis. No focal hepatic lesion is identified. Normal directional flow in the portal vein. GALLBLADDER:Normal appearing gallbladder without evidence for gallbladder wall thickening or pericholecystic fluid. BILIARY:There is no biliary ductal dilatation. RIGHT KIDNEY:Normal. No hydronephrosis. OTHER:Negative. No ascites is identified. CONCLUSION: 1. Mild hepatic steatosis. 2. Slight fullness of the pancreatic head and body may be consistent with the clinical history of pancreatitis. The pancreatic tail is a obscured by bowel gas shadowing. Dictated by: CHRISTIANOA Physician on 07/10/2018 at 12:48 PM ld
[2018-07-10] MEDS: COREG PO SCH ×2 (14:46→14:49)
[2018-07-10] MEDS: KEPPRA PO SCH ×2 (14:46→20:27)
[2018-07-10] MEDS: PROCARDIA PO SCH (14:47)
[2018-07-10] MEDS: KLOR-CON 10 PO SCH (14:47)
[2018-07-10] MEDS: PROTONIX PO SCH (14:48)
[2018-07-10] MEDS: TYLENOL PO PRN (14:48)
[2018-07-10 15:37] VITALS: BP 154/70
[2018-07-10 19:00] VITALS: BP 166/68
[2018-07-10] MEDS: DILAUDID IV PRN (19:53)
[2018-07-10] MEDS: DUONEB 0.5 MG-3 MG/3 ML SOLN IH PRN (20:13)
[2018-07-10] MEDS: DESYREL PO SCH (20:26)
[2018-07-10] MEDS: ZOCOR PO SCH (20:27)
[2018-07-10] MEDS: SINGULAIR PO SCH (20:28)
[2018-07-11] VITALS: BP 148/55
--- NOTE | 2018-07-11 02:30 | NUR ---
UA OBTAINED FOR LAB
[2018-07-11] MEDS ORDERED: LACTATED RINGERS 1,000 ML ONE ×2 (03:46→18:12)
[2018-07-11] MEDS: LACTATED RINGERS 1,000 ML IV SCH ×3 (03:51→17:30)
[2018-07-11] MEDS: DILAUDID IV PRN ×3 (03:58→21:21)
[2018-07-11 04:06] VITALS: BP 122/52
--- NOTE | 2018-07-11 07:00 | NUR ---
REPORT REPORT RECEIVED FROM NICK LUJAN.
[2018-07-11 07:08] VITALS: BP 114/54
[2018-07-11] MEDS: PLAVIX PO SCH (09:00)
[2018-07-11] MEDS: ZOLOFT PO SCH (09:00)
[2018-07-11] MEDS: COREG PO SCH ×2 (09:00→20:47)
[2018-07-11] MEDS: PROTONIX PO SCH (09:00)
[2018-07-11] MEDS: KEPPRA PO SCH ×2 (09:00→20:48)
[2018-07-11] MEDS: DUONEB 0.5 MG-3 MG/3 ML SOLN IH PRN ×2 (09:17→20:38)
--- NOTE | 2018-07-11 10:16 | DIET.OP ---
Nutrition Asmt/Malnutrit 01-11 Nutritional Screening: Malnutr/Diet Consult Diagnosis: Acute Pancreatitis Pertinent Medical Hx/Surgical: HTN, hyperlipidemia, COPD with tobacco dependence, peripheral vascular disease, GERD Subjective Information: Spoke with pt who appeared to be in some discomfort. Pt was NPO on 07/09-07/10. She is currently on a Clear Liquid Diet. Pt reported having nausea but no V/C/D. Pt was recently admitted on 05/20/18 with a wt of 124#. Pt reported weighing 186# about 10 months ago. Previous notes suggest the wt of 186# is from 03/29/17. Pt is currently consuming 0% of her meals. Pt reported having a poor appetite because of nausea and pain Current Diet Order/Nutrition S: Clear Liquid Pertinent Meds Current Medications Medications (Trade) Dose Ordered Sig/Jacques PRN Reason Start Time Stop Time Status Last Admin Acetaminophen (Tylenol) 1,000 mg Q6H PRN PAIN MILD 07/09/18 17:00 08/08/18 16:59 07/10/18 14:48 Albuterol/ Ipratropium (Duoneb 0.5 Mg-3 Mg/3 ml Soln) 3 ml RTQ6H PRN WHEEZING 07/10/18 10:30 08/09/18 10:29 07/11/18 09:17 Carvedilol (Coreg) 3.125 mg BID 07/10/18 10:30 08/09/18 10:29 Clopidogrel Bisulfate (Plavix) 75 mg DAILY 07/11/18 09:00 08/10/18 08:59 Hydromorphone HCl (Dilaudid) 1 mg Q4H PRN PAIN SEVERE 07/09/18 17:00 08/08/18 16:59 07/11/18 03:58 Levetiracetam (Keppra) 500 mg BID 07/10/18 10:30 08/09/18 10:29 07/10/18 20:27 Montelukast Sodium (Singulair) 10 mg HS 07/10/18 21:00 08/09/18 20:59 07/10/18 20:28 Nifedipine (Procardia) 90 mg DAILY24 07/10/18 10:30 08/09/18 10:29 07/10/18 14:47 Ondansetron HCl (Zofran) 4 mg Q4H PRN NAUSEA / VOMITING 07/09/18 17:00 08/08/18 16:59 07/10/18 19:52 Pantoprazole Sodium (Protonix) 40 mg DAILY 07/10/18 10:30 08/09/18 10:29 07/10/18 14:48 Potassium Chloride (Klor-Con 10) 20 meq DAILY24 07/10/18 10:30 08/09/18 10:29 07/10/18 14:47 Sertraline HCl (Zoloft) 100 mg DAILY 07/11/18 09:00 08/10/18 08:59 Simvastatin (Zocor) 40 mg HS 07/10/18 21:00 08/09/18 20:59 07/10/18 20:27 Trazodone HCl (Desyrel) 75 mg HS 07/10/18 21:00 08/09/18 20:59 07/10/18 20:26 Pertinent Labs Amylase 241 (high); Total Bilirubin 0.5; Lipase 3354 (high); Glu 117 (high), 118 (high), 87, 60 (low); Hct 33.4 (low) Height (Feet): 5 Height (Inches): 7 Current Weight: 140 Usual Weight: 124 (05/18/18) %UBW: 113 %IBW: 104 Recent Weight Change: Yes Weight Status: Underweight (for age ) GI Symptoms: [place] Food Allergies: No Skin Integrity/Comment: No Current %PO: Negligible(<25%) Calories/Kcals/Kg: MsJ * 1.2-1.3 Kcals Calculated: 3432-3659 Protein: Use Current Weight Protein g/k.2-1.5 g/kg Protein Calculated: 77-96 Fluid: ml: 1 ml/kcal Problems: Inadequate oral food/beverage intake Etiology: PO intake Signs/Symptoms: nausea, acute pancreatitis, PO intake over last 2 days of 0%, previous NPO status Body Fat Depletion (Non Severe: Mild Depletion Muscle Mass (Non-Severe): Mild Depletion (Mod) Protein-Calorie Malnutrition: Non-Severe Is there a minimum of two crit: Yes RD Comments: Recommendation: Pt's should be advanced to regular consistency as tolerated to increase energy intake. Monitor wt status, PO intake, and stool output for signs of fat malabsorption Expected Outcomes Goal: Pt's diet will be advanced to regular consistency and she will 50-75% of meals provided over the next 1-2 days and 75-100% of meals provided over the next 2-3 days to meet estimated energy needs. BECKI SHARIF RD Jul 11, 2018 10:16
--- NOTE | 2018-07-11 10:24 | NUR ---
STATUS UPDATE PATIENT TAKEN OFF FLOOR VIA WHEELCHAIR FOR HIDA SCAN.
[2018-07-11] MEDS: KLOR-CON 10 PO SCH (10:30)
[2018-07-11] MEDS: PROCARDIA PO SCH (10:30)
[2018-07-11] MEDS: ZOFRAN IV PRN ×2 (13:33→21:20)
--- NOTE | 2018-07-11 14:05 | HPH ---
ADMIT DATE: 07/10/2018 CHIEF COMPLAINT: Abdominal pain. HISTORY OF PRESENT ILLNESS: The patient is a 68-year-old woman with a past medical history significant for peripheral vascular disease with prior stroke with no residual deficits, coronary artery disease, hypertension, tobacco abuse, COPD, history of seizure disorder. She presented to ER with complaints of abdominal pain, some nausea and vomiting. It was relieved by lying still. It was worse with eating she stated. She has not been on recent antibiotics. She states she does not drink alcohol. Workup in ER did reveal she had evidence of pancreatitis with extensive edematous changes in the peripancreatic fat. She still has her gallbladder. Initial workup did not reveal any significant pathology of the gallbladder on the CT. She did have a mildly elevated white count. PAST MEDICAL HISTORY: Includes CHF, chronic diastolic dysfunction grade 1, hypertension, coronary artery disease, prior CVA with no residual deficit, GERD, hyperlipidemia, previous seizure disorder. PAST SURGICAL HISTORY: She has had appendectomy, hysterectomy, bilateral wrist ORIF and the tibia ORIF. ALLERGIES: Allergic to CODEINE. CURRENT HOME MEDICATIONS: List includes albuterol as needed, carvedilol 3.125 mg twice a day, Plavix 75 mg daily, Keppra 500 mg twice a day, Singulair 10 mg daily, nifedipine 90 mg daily, omeprazole 40 mg daily, potassium 20 mEq daily, Zoloft 100 mg daily, simvastatin 40 mg at night. Trazodone 50 mg tablet, she takes one-half tablet at night. She is on Anoro Ellipta daily. SOCIAL HISTORY: She lives at home. Positive tobacco use. Denies any illicit drug use or alcohol use. FAMILY HISTORY: Negative for early coronary artery disease or diabetes. REVIEW OF SYSTEMS: CARDIAC: Denies chest pain, shortness of breath or dyspnea on exertion. PULMONARY: No cough, sputum production or pleuritic chest pain. GASTROINTESTINAL: Positive for nausea, vomiting. No diarrhea or constipation. All else negative in 10-point review of system except as in HPI. PHYSICAL EXAMINATION: VITAL SIGNS: Upon arrival to the ER, height 170.2 cm, weight 63.5 kilograms, temperature 97.8, pulse 104, respiratory rate is 20, blood pressure 153/117, O2 saturation 97% on room air. GENERAL: She is alert, chronic ill-appearing lady. HEENT: Pupils equal, round, reactive to light. Sclerae are anicteric. Oropharynx is clear. Mucous membranes are slightly dry. NECK: Supple, no lymphadenopathy. CARDIOVASCULAR: At time of exam was regular rate and rhythm. LUNGS: Clear bilaterally. No wheezing. ABDOMEN: Soft. Bowel sounds are present. Tender to palpation in the epigastric region. No rebound or guarding. EXTREMITIES: No cyanosis, clubbing or significant edema. NEUROLOGIC: Grossly nonfocal. INITIAL LABORATORY DATA: CBC: White count 11.6, hemoglobin 14.3 and platelets 462. Differential: 88% neutrophils, 7% lymphocytes, 4% monocytes. Sodium 142, potassium is 2.9, chloride 104, CO2 is 27, BUN 10, creatinine 1.27, glucose 87, calcium 9.3, total bilirubin 0.5, AST 20, ALT is 10, alkaline phosphatase 118. C-reactive protein 1.64, total protein 6.2, albumin 2.3, amylase 241, lipase 3354. PT of 10.3, PTT 27.1. UA, pH is 7.0, specific gravity is 1.025 with 50 mg/dL of protein. Contaminated several moderate squamous epithelial cells. H. pylori is negative. IMAGING STUDIES: CT abdomen and pelvis does show edematous fat around the pancreas consistent with acute pancreatitis. ASSESSMENT AND PLAN: The patient is a 68-year-old woman here with acute pancreatitis with unclear etiology at this point with history of tobacco abuse, chronic obstructive pulmonary disease, hypertension, coronary artery disease. 1. Continue cardiovascular medications. 2. IV fluid hydration. 3. Appropriate p.r.n. pain and nausea medication. 4. We will get gallbladder ultrasound and false-negative HIDA scan. 5. Offered a nicotine patch for smoking cessation. She states she is allergic to the patches. Time spent on 07/10/2018 is 45 minutes. This plan was discussed with the patient. She is her own decision maker. She does understand and concur with plans. Avery Stroud MD DR: ANU/sania JOB# [id number]
--- NOTE | 2018-07-11 16:05 | DIREP ---
PROCEDURE:NM GALLBLADDER SCAN/BRENNER COMPARISON:None. INDICATIONS:Pancreatitis TECHNIQUE:After obtaining the patient's consent, radiopharmaceutical was injected and images obtained sequentially for one hour. PHARMACEUTICAL(S):7.42 mCi Tc-99m SHANNAN derivative. 8 oz ensure plus FINDINGS: LIVER:Normal. BILIARY DUCTS:Normal. Visualized at 10 minutes. GALLBLADDER:Normal. Visualized at 10 minutes INTESTINE:Normal. Visualized at 40 minutes EJECTION FRACTION:8 %. Normal is greater than 50% at 15-20 minutes, EF between 35%-50% is equivocal. Administration of 8 oz ensure plus resulted in no nausea common cramping, or reproduction of symptoms. CONCLUSION: 1. Abnormal gallbladder ejection fraction measuring 8%. Findings could signify chronic cholecystitis or gallbladder dysfunction. 2. Patent common bile and cystic ducts. Dictated by: Manoj Fuentes MD on 07/11/2018 at 04:01 PM
[2018-07-11] MEDS: MEROPENEM 500 MG in NS 100ML 100 ML IV SCH ×2 (16:30→22:00)
[2018-07-11] MEDS ORDERED: NS 100ML 100 ML IV ONE ×2 (17:24→22:26)
[2018-07-11 17:45] VITALS: BP 131/59
--- NOTE | 2018-07-11 19:35 | NUR ---
REPORT REPORT GIVEN TO SRI PETERSEN.
--- NOTE | 2018-07-11 20:16 | NUR ---
Dr. Stuart at the bedside.
[2018-07-11 20:40] VITALS: BP 144/63
[2018-07-11] MEDS: DESYREL PO SCH (20:48)
[2018-07-11] MEDS: SINGULAIR PO SCH (20:49)
[2018-07-11] MEDS: ZOCOR PO SCH (20:49)
[2018-07-11] MEDS ORDERED: KLOR-CON 10 PO SCH (21:00)
--- NOTE | 2018-07-11 22:42 | NUR ---
Ambulated in nesbitt. Tolerated half the nesbitt length and back to room. Said her legs were getting weak.
[2018-07-12] VITALS: BP 140/64
[2018-07-12] MEDS: DILAUDID IV PRN ×4 (03:59→21:21)
[2018-07-12 04:30] VITALS: BP 141/61
[2018-07-12] MEDS ORDERED: LACTATED RINGERS 1,000 ML ONE (05:19)
[2018-07-12] MEDS: LACTATED RINGERS 1,000 ML IV SCH ×3 (05:20→20:30)
[2018-07-12 06:32] LABS: BASOPHIL % 0.3 % (0.0-0.2); EOSINOPHIL # 0.5 10^3/uL (0.0-0.2); EOSINOPHIL % 6.1 % (0.0-5.0); HEMOGLOBIN 10.2 g/dL (12.0-15.0); LYMPHOCYTES # 2.1 10^3/uL (1.0-4.8); LYMPHOCYTES % 23.3 % (24.0-44.0); MEAN CELL HGB 30.4 pg (26-34); MEAN CELL HGB CONCENTRATION 33.9 g/dL (33-37); MEAN CORP VOLUME 89.9 fL (78-100); MEAN PLATELET VOLUME 10.8 fL (7.8-11.0); MONOCYTES # 0.9 10^3/uL (0.3-0.8); MONOCYTES % 9.8 % (5.0-12.0); NEUTROPHIL # 5.3 10^3/uL (1.8-7.7); NEUTROPHILS % 60.5 % (41.0-85.0); PLATELET COUNT 278 10^3/uL (150-400); RED CELL DISTRIBUTION WIDTH 14.6 % (11.5-14.5); WHITE BLOOD CELL 8.8 10^3/uL (4.5-11.0)
[2018-07-12 07:16] LABS: CALCIUM 8.4 mg/dL (8.4-10.5); CARBON DIOXIDE 28.1 mmol/L (20.0-32)
[2018-07-12 08:30] VITALS: BP 124/75
--- NOTE | 2018-07-12 09:42 | NUR ---
c/o of pain Pt C/O OF PAIN IN "ABD IN 10/10 RATING SCALE, CRAMPING PAIN", ADMINISTERED DILAUDID 1 MG PRN PER ORDER, WILL REASSESS THE Pt.
[2018-07-12] MEDS: DUONEB 0.5 MG-3 MG/3 ML SOLN IH PRN ×2 (11:52→20:10)
[2018-07-12] MEDS: MEROPENEM 500 MG in NS 100ML 100 ML IV SCH ×2 (12:00→19:11)
[2018-07-12] MEDS: PLAVIX PO SCH (12:26)
[2018-07-12] MEDS: ZOLOFT PO SCH (12:27)
[2018-07-12] MEDS: KLOR-CON 10 PO SCH (12:27)
[2018-07-12] MEDS: KEPPRA PO SCH ×2 (12:28→21:06)
[2018-07-12] MEDS: PROCARDIA PO SCH (12:29)
[2018-07-12] MEDS: PROTONIX PO SCH (12:29)
[2018-07-12 12:31] VITALS: BP 147/66
[2018-07-12] MEDS: COREG PO SCH ×2 (12:31→21:06)
--- NOTE | 2018-07-12 12:44 | NUR ---
PATIENT SITTING UP ON SIDE OF BED EATING LUNCH. REPORTS PAIN DOWN TO 3. ASKING WHEN PAIN MEDS DUE AGAIN. DIET ADVANCED TO HEART HEALTHY. TOLERATING WELL AT PRESENT. INSTRUCTED TO TAKE IT SLOW. PATIENT VERBALIZES UNDERSTANDING. MIXED PROTEIN IN WITH TEA AND PATIENT DRINKING.
--- NOTE | 2018-07-12 14:30 | NUR ---
PATIENT LYING IN BED WITH HEAD COVERED BY BLANKETS. RESPIRATIONS UNLABORED. NO DISTRESS NOTED. SR UP X2. CALL LIGHT WITHIN REACH. NO DISTRESS NOTED.
[2018-07-12 16:10] VITALS: BP 138/61
--- NOTE | 2018-07-12 16:30 | NUR ---
PATIENT REPORTS PAIN IS IMPROVED WITH DILAUDID. SITTING UP IN BED. NO DISTRESS NOTED AT PRESENT.
--- NOTE | 2018-07-12 18:00 | NUR ---
PATIENT ALERT AND PLEASANT. PATIENT SITTING UP ON SIDE OF BED EATING DINNER. NO DISTRESS NOTED.
[2018-07-12 19:00] VITALS: BP 147/68
[2018-07-12] MEDS: SINGULAIR PO SCH (21:06)
[2018-07-12] MEDS: ZOCOR PO SCH (21:06)
[2018-07-12] MEDS: DESYREL PO SCH (21:06)
--- NOTE | 2018-07-12 21:20 | NUR ---
pT UP WITH NURSING STAFF TO AMBULATE IN THE SMALL, AMBULATED 130 FEET TOLERATED WELL
--- NOTE | 2018-07-12 21:25 | NUR ---
DILAUDID 1MG IV GIVEN FOR PAIN 06/03
--- NOTE | 2018-07-12 22:24 | CNH ---
DATE OF CONSULTATION: 07/12/2018 CHIEF COMPLAINT: Biliary dyskinesia, chronic cholecystitis. HISTORY OF PRESENT ILLNESS: This is a 68-year-old female who has had intermittent mid abdominal pain that is pressure like for approximately 1 year. For the previous 10 days, she reports it was more severe and for the 2 days prior to admission, she had a significant increase in her pain as well as nausea and vomiting. She had some nausea at the hospital. Her last reported BM to me was 2 days ago. She reports her pain is pressure like in the mid abdomen without significant posterior radiation. She denies related chest pain or trouble breathing. She is currently admitted to Med/Surg floor to the service of the hospitalist and she has been treated appropriately. She has had multiple imaging studies. PAST MEDICAL HISTORY: Hypertension, coronary artery disease, previous CVA with no apparent residual defect. She has a seizure disorder secondary to cerebrovascular accident last year. She has some GERD, hyperlipidemia, and some known cardiac disease. PAST SURGICAL HISTORY: Includes appendectomy and hysterectomy. They were together in 1975. She had a left wrist ORIF and left tibia ORIF. ALLERGIES: CODEINE. OUTPATIENT MEDICATIONS: Noted in the chart to include carvedilol, Plavix, Keppra, Singulair, nifedipine, omeprazole, potassium supplement, Zoloft, simvastatin, trazodone and Anoro Ellipta. INPATIENT MEDICATIONS: Per JAN. SOCIAL HISTORY: Positive for smoked tobacco for 50 years. She reported to me she found allergic to be alcohol more than 40 years ago and has not consumed alcohol more than 40 years. She does report occasional marijuana use. FAMILY HISTORY: Mother and father both in her 70s. There is no reported early coronary artery disease or significant malignancies. REVIEW OF SYSTEMS: CONSTITUTIONAL: No fever, chills or weakness. ENDOCRINE: She denies thyroid disease or diabetes. CARDIOVASCULAR: She has chest pain or trouble breathing at this time. She has known hypertension. PULMONARY: She does have some chronic lung issues, no acute cough or shortness of breath. ABDOMEN: As per HPI. MUSCULOSKELETAL: She has some chronic issues. NEUROLOGIC: She has history of stroke with associated seizure disorder. PHYSICAL EXAMINATION: VITAL SIGNS: Currently afebrile female. Last temperature 98.0, pulse 57, respiratory rate of 18, blood pressure 141/61. HEENT: Normocephalic, atraumatic. [place] mucous membranes. NECK: Supple and soft. Trachea is midline. No JVD or thyromegaly. She has no audible carotid bruits on 2 separate episodes of listing. HEART: Essentially regular rate and rhythm. LUNGS: She has bilateral expiratory wheezes. ABDOMEN: Bowel sounds are positive, soft. She has diffuse tenderness in the mid abdomen. No focal findings. EXTREMITIES: Show positive radial pulses bilaterally and decreased dorsal pedal pulse bilaterally. NEUROLOGIC: She has no acute findings. Upper and lower motor extremity is intact with appropriate strength for her relative situation. SKIN AND INTEGUMENT: Warm and dry. LABORATORY STUDIES: On admission, white count was 11.6, it increased to 14.0, today it is 8.8, hemoglobin today is 10.2, platelet count is 278. Chemistry today shows BUN of 5, creatinine 0.8. Her albumin is noted to be 1.3. IMAGING STUDIES: Ultrasound shows no pericholecystic fluid. CAT scan shows edematous changes consistent with pancreatitis. HIDA scan shows biliary dysfunction with EF of 8%. SURGICAL ASSESSMENT: 1. Chronic cholecystitis with associated symptoms. 2. Acute pancreatitis that is improving. 3. History of coronary artery disease. 4. History of prior cerebrovascular accident. 5. History of hypertension. 6. Extensive tobacco use. PLAN: 1. The patient is seen and examined. Chart is reviewed. 2. I agree with the hospitalist regarding conservative management at this point to try and optimize her prior to any surgical intervention. The patient's albumin is low. We will order nutritional supplementation. 3. I have advised the patient to increase activity as tolerated. Erick Stuart DO DR: LI/sania JOB# [id number] CC: Avery Stroud MD
[2018-07-13] VITALS: BP 147/67
[2018-07-13] MEDS: LACTATED RINGERS 1,000 ML IV SCH ×2 (02:41→15:59)
[2018-07-13] MEDS: TYLENOL PO PRN ×2 (02:45→11:33)
--- NOTE | 2018-07-13 02:51 | NUR ---
tylenol 1 gm po given for pain 03/04
[2018-07-13] MEDS: MEROPENEM 500 MG in NS 100ML 100 ML IV SCH ×3 (03:43→20:16)
[2018-07-13 04:00] VITALS: BP 135/58
[2018-07-13 06:11] LABS: BASOPHIL % 0.4 % (0.0-0.2); EOSINOPHIL # 0.6 10^3/uL (0.0-0.2); EOSINOPHIL % 6.5 % (0.0-5.0); HEMOGLOBIN 10.9 g/dL (12.0-15.0); LYMPHOCYTES # 2.6 10^3/uL (1.0-4.8); LYMPHOCYTES % 26.6 % (24.0-44.0); MEAN CELL HGB 30.4 pg (26-34); MEAN CELL HGB CONCENTRATION 33.3 g/dL (33-37); MEAN CORP VOLUME 91.3 fL (78-100); MONOCYTES # 1.1 10^3/uL (0.3-0.8); NEUTROPHIL # 5.3 10^3/uL (1.8-7.7); NEUTROPHILS % 55.2 % (41.0-85.0); RED CELL DISTRIBUTION WIDTH 14.9 % (11.5-14.5); WHITE BLOOD CELL 9.7 10^3/uL (4.5-11.0)
--- NOTE | 2018-07-13 06:36 | NUR ---
REPORT TO DEJAN PETERSEN
[2018-07-13 06:49] LABS: CALCIUM 8.9 mg/dL (8.4-10.5); CARBON DIOXIDE 26.6 mmol/L (20.0-32)
[2018-07-13] MEDS: DILAUDID IV PRN ×2 (06:51→15:48)
[2018-07-13 07:00] VITALS: BP 95/62
[2018-07-13] MEDS: DUONEB 0.5 MG-3 MG/3 ML SOLN IH PRN ×2 (08:31→21:04)
[2018-07-13] MEDS: ZOFRAN IV PRN ×3 (08:44→23:57)
[2018-07-13] MEDS: PLAVIX PO SCH (08:45)
[2018-07-13] MEDS: ZOLOFT PO SCH (08:45)
[2018-07-13] MEDS: KEPPRA PO SCH ×2 (08:45→20:17)
[2018-07-13] MEDS: PROTONIX PO SCH (08:45)
--- NOTE | 2018-07-13 08:49 | NUR ---
C/O OF NAUSEA Pt C/O OF NAUSEA, ADMINISTERED ZOFRAN 4 MG PRN. WILL REASSESS THE Pt.
[2018-07-13] MEDS: COREG PO SCH ×2 (08:52→20:17)
[2018-07-13] MEDS: PROCARDIA PO SCH ×2 (11:31→11:34)
[2018-07-13] MEDS: KLOR-CON 10 PO SCH (11:32)
--- NOTE | 2018-07-13 11:34 | NUR ---
BP LOW PROCARDIA 90 MG HELD BP 106/55.
--- NOTE | 2018-07-13 11:37 | NUR ---
Anesthesia assessment for possible lap denisha. Spoke with pt to ascertain pt health history. Pt is poor historian. Medical Record shows hx of: CVA, Seizures, CAD, PVD, HTN, CHF, COPD, SOB, smoking, Pancreatitis. Pt currently taking Plavix but does not know why. Pt is not sure if she has had a coronary intervention. 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 Pt currently demonstrates mild SOB while speaking. Pt states she could not walk up a flight of steps. Lung sounds are clear, heart auscultation shows mild-moderate systolic murmur but otherwise RRR. Dr. Erick Stuart consulted and anesthesia recommends cardiology consultation.
[2018-07-13 12:02] VITALS: BP 106/45
--- NOTE | 2018-07-13 15:00 | NUR ---
AMBULATION Pt AMBULATED IN THE HALLWAY , 50 FT ASSISTED BY THIS NURSE AND NURSE HUMZA PEETRSEN,
--- NOTE | 2018-07-13 15:50 | NUR ---
EMESIS , C/O OF PAIN Pt HAD ONE TIME EMESIS, C/ O OF PAIN IN ABD "TIGHTNESS AT 9/10" ADMINISTERED ZOFRAN 4 MG IV PRN AND DILAUDID 1 MG IV PER ORDER, WILL REASSESS THE Pt
[2018-07-13 16:15] VITALS: BP 115/59
[2018-07-13 19:44] VITALS: BP 113/52
[2018-07-13] MEDS: ZOCOR PO SCH (20:16)
[2018-07-13] MEDS: DESYREL PO SCH (20:16)
[2018-07-13] MEDS: SINGULAIR PO SCH (20:17)
--- NOTE | 2018-07-13 23:22 | PNH ---
DATE: 07/11/2018 SUBJECTIVE: She still has some abdominal pain. She has some mild nausea, but no vomiting. No other acute events overnight. OBJECTIVE: VITAL SIGNS: T-max last 24 hours is 97.8, pulse 83, respiratory rate 18, blood pressure 131/59, O2 saturation 97% on room air. GENERAL: She is alert, in no acute distress at time of exam. HEENT: Pupils equal, round, reactive to light. Sclerae are anicteric. Oropharynx is clear. Mucous membranes are slightly dry. NECK: Supple, no lymphadenopathy. CARDIOVASCULAR: At time of exam was regular rate and rhythm. LUNGS: Clear bilaterally. No wheezing. ABDOMEN: Soft. Bowel sounds are present. Tender to palpation in the epigastric region. No rebound or guarding. EXTREMITIES: No cyanosis, clubbing or significant edema. NEUROLOGIC: Grossly nonfocal. ASSESSMENT AND PLAN: The patient is a 68-year-old woman with acute pancreatitis with biliary dyskinesia with an EF of 8%. Multiple other medical problems including prior CVA, some mild pulmonary hypertension and tobacco abuse. 1. General Surgery has been consulted. We will assess and follow for biliary dyskinesia. 2. Continue IV antibiotics. We will start with meropenem due to the increased WBC count. Continue her Keppra for seizure disorder. 3. Nebulizer treatments scheduled and as needed. Food And Beverage Service Manager on smoking cessation. 4. Appropriate p.r.n. pain and nausea medication. Time spent on 07/11/2018 is 25 minutes. Avery Stroud MD DR: ANU/sania JOB# [id number]
[2018-07-14 00:43] VITALS: BP 130/54
[2018-07-14] MEDS: TYLENOL PO PRN (02:05)
--- NOTE | 2018-07-14 02:39 | PNH ---
DATE: 07/13/2018 SUBJECTIVE: A 68-year-old female in no acute distress, seen in her room with the nursing service. She is tolerating some diet. She reports that her abdominal pain is intermittent, it typically responds well to meds. She reports some intermittent pain after eating meals. OBJECTIVE: VITAL SIGNS: Last temperature is 97.9, pulse 71, respiratory rate of 18, blood pressure 95/62. ABDOMEN: The bowel sounds are positive, soft. She has decreased tenderness in the upper abdomen, minimal to no tenderness in the right upper quadrant. LABORATORY DATA: Today show white count 9.7, hemoglobin 10.9, platelet count 303. Chemistry shows BUN of 14, creatinine 0.91. She has had an echo, the final report is pending. SURGICAL ASSESSMENT: 1. Acute pancreatitis, it is improving. 2. Probable chronic obstructive pulmonary disease with history of tobacco use. 3. History of cerebrovascular accident. 4. Chronic cholecystitis. PLAN: The patient is seen and examined. Chart was reviewed. As she has no alcohol consumption in the last 30 years, it is unlikely that alcohol was a contributing factor to her pancreatitis. Biliary is a far more likely issue. We will ask the patient to be seen by Anesthesia, further optimize her with the medicine service. If she requires Cardiology evaluation prior to surgery, we will delay operation for that. Ideally, we will optimize this patient in every aspect of her medical care prior to surgical intervention. Erick Stuart DO DR: LI/sania JOB# [id number] CC: Avery Carrillo MD
[2018-07-14] MEDS: MEROPENEM 500 MG in NS 100ML 100 ML IV SCH ×3 (04:12→20:36)
[2018-07-14] MEDS: LACTATED RINGERS 1,000 ML IV SCH ×2 (04:13→12:08)
[2018-07-14 05:03] VITALS: BP 117/54
[2018-07-14 07:00] VITALS: BP 122/60
[2018-07-14] MEDS ORDERED: TORADOL ONE (07:35)
[2018-07-14] MEDS: DUONEB 0.5 MG-3 MG/3 ML SOLN IH PRN (07:39)
[2018-07-14] MEDS: ZOFRAN IV PRN ×3 (07:44→20:32)
[2018-07-14] MEDS: TORADOL IV PRN ×3 (07:45→20:32)
[2018-07-14] MEDS: KEPPRA PO SCH ×2 (08:47→20:30)
[2018-07-14] MEDS: PLAVIX PO SCH (08:47)
[2018-07-14] MEDS: COREG PO SCH ×2 (08:47→20:31)
[2018-07-14] MEDS: ZOLOFT PO SCH (08:47)
[2018-07-14] MEDS: PROTONIX PO SCH (08:47)
--- NOTE | 2018-07-14 09:40 | NUR ---
CARDIOLOGY CONSULT DR SMALL ON PHONE WITH DR HOWARD AT THIS TIME
[2018-07-14 11:41] VITALS: BP 119/55
--- NOTE | 2018-07-14 11:56 | NUR ---
DR. ANITA HOWARD HERE TO SEE PT AT THIS TIME
[2018-07-14] MEDS: KLOR-CON 10 PO SCH (12:07)
--- NOTE | 2018-07-14 12:18 | PCM.EKG ---
[facility] Test Date: 2018-07-14 Test Time: 12:20:26 Pat Name: HERBER ZARATE Department: Room: 331 A Gender: F Douper: : 1950 Requested By: NATALIA GOOD Order Number: [id number] Reading MD: Natalia Good Measurements Intervals Dixon Rate: 62 P: 72 UT: 142 QRS: 35 QRSD: 80 T: 62 QT: 418 QTc: 424 Interpretive Statements Normal sinus rhythm with sinus arrhythmia Normal ECG Compared to ECG 05/14/2018 16:28:49 No significant changes Electronically Signed On 07-16-2018 12:46:00 CDT by Natalia Good Please click the below link to view image of tracing.
[2018-07-14 17:00] VITALS: BP 137/57
--- NOTE | 2018-07-14 18:45 | NUR ---
Report Received report from Jeremiah Alegria LVN
[2018-07-14] MEDS: SINGULAIR PO SCH (20:30)
[2018-07-14] MEDS: ZOCOR PO SCH (20:31)
[2018-07-14] MEDS: DESYREL PO SCH (20:32)
[2018-07-14] MEDS ORDERED: NS 100ML 100 ML IV ONE (20:33)
[2018-07-14 22:12] VITALS: BP 155/77
--- NOTE | 2018-07-14 23:39 | PNH ---
DATE: 07/12/2018 SUBJECTIVE: She still has some pain with some oral intake. She is taking Dilaudid frequently. She has not been ambulating much. OBJECTIVE: VITAL SIGNS: T-max last 24 hours is 98.0, pulse 63, respirations 18, blood pressure 138/61, O2 saturation 93% on room air. GENERAL: She is alert, in no acute distress at time of exam. HEENT: Pupils equal, round, reactive to light. Sclerae are anicteric. Oropharynx is clear. Mucous membranes are moist. NECK: Supple, no lymphadenopathy. CARDIOVASCULAR: At time of exam was regular rate and rhythm. LUNGS: Clear bilaterally. No wheezing. ABDOMEN: Soft. Bowel sounds are present, nontender to palpation. EXTREMITIES: No cyanosis, clubbing or significant edema. NEUROLOGIC: Grossly nonfocal. LABORATORY DATA: Sodium 142, potassium 3.7, chloride 109, CO2 is 28, BUN 5, creatinine 0.8, glucose is 74, calcium is 8.4, total bilirubin 0.3, AST 14, ALT 6, alkaline phosphatase 80, total protein is 4.2, albumin 1.3. CBC: White count 8.8, hemoglobin 10.2, platelets 278. Differential: 60% neutrophils, 23% lymphocytes, 10% monocytes. ASSESSMENT AND PLAN: 1. The patient is a 68-year-old woman here with symptomatic biliary dyskinesia with multiple other medical problems with a relatively good functional status at baseline. 2. General Surgery is consulted, medically low cardiovascular risk for cholecystectomy. 3. P.r.n. pain and nausea medications. 4. Continue cardiovascular medications. 5. Continue Keppra for seizure disorder. Time spent on 07/12/2018 is 25 minutes. Avery Stroud MD DR: ANU/sania JOB# [id number]
[2018-07-15] VITALS (9 sets, daily range): BP systolic 118–190; BP diastolic 63–85
--- NOTE | 2018-07-15 00:14 | PNH ---
DATE: 07/14/2018 SUBJECTIVE: No significant changes. She denies any chest pain. No trouble breathing. Anesthesia has requested Cardiology to see the patient. OBJECTIVE: VITAL SIGNS: T-max last 24 hours is 98.0, pulse 56, respiratory rate is 18, blood pressure 122/60, O2 saturation 93% on room air. GENERAL: She is alert, in no acute distress at time of exam. HEENT: Pupils equal, round, reactive to light. Sclerae are anicteric. Oropharynx is clear. Mucous membranes are moist. NECK: Supple, no lymphadenopathy. CARDIOVASCULAR: At time of exam was regular rate and rhythm. LUNGS: Clear bilaterally. ABDOMEN: Soft. Bowel sounds are present, nontender to palpation. EXTREMITIES: No cyanosis, clubbing or edema. NEUROLOGIC: Grossly nonfocal. ASSESSMENT AND PLAN: The patient is a 68-year-old woman here with symptomatic biliary dyskinesia with resolved pancreatitis with anemia of chronic disease, has history of congestive heart failure, diastolic dysfunction. 1. General Surgery is consulted is following. We will probably perform cholecystectomy if risk stratified by Cardiology. 2. Cardiology consult for risk stratification. 3. Continue current medical management including meropenem. Time spent on 07/14/2018 is 25 minutes. Avery Stroud MD DR: ANU/sania JOB# [id number]
--- NOTE | 2018-07-15 01:09 | CNH ---
DATE OF CONSULTATION: 07/14/2018 CARDIOLOGY CONSULTATION HISTORY OF PRESENT ILLNESS: The patient is a 68-year-old female who presented to the hospital for the past 5 days having severe abdominal discomfort. She has a markedly elevated lipase consistent with acute pancreatitis. She has a history of a CVA in the past, but no history of cardiac disease. We are seeing her to determine clearance for cholecystectomy. Her electrocardiogram is normal. She had an echocardiogram done, which shows mild hypokinesis, but only borderline. Laboratories are negative for any cardiac issues. Of interest, she is on clopidogrel due to her history of stroke, but no other anticoagulants. PHYSICAL EXAMINATION: GENERAL: She is somewhat ill-appearing elderly female in no acute distress. VITAL SIGNS: Her blood pressure is 122/60 and her pulse is 68 beats per minute and regular. HEENT: Unremarkable. NECK: Without JVD or bruits. LUNGS: Chest is clear to auscultation. HEART: Regular rate and rhythm without murmurs, gallops, rubs or clicks. ABDOMEN: Tender throughout with severe tenderness on the left subcostal margin. EXTREMITIES: Without cyanosis, clubbing or edema. Peripheral pulses are intact and are normal. NEUROLOGIC: She has no focal neurologic deficits. IMPRESSION: Acute pancreatitis due to cholecystitis. PLAN: I recommend that she proceed with a cholecystectomy. At this time, I think it would be safe to discontinue the platelet inhibitor until after her surgery, but the choice here is up to the surgeon and if he wishes to do it without platelet inhibitors that is a surgical choice. I do not see any evidence of any cardiac issues that put her at risk for this surgery or anesthesia. Cleared for cholecystectomy. NATALIA HOWARD MD DR: PEGGY/sania JOB# [id number]
--- NOTE | 2018-07-15 01:34 | PNH ---
DATE: 07/13/2018 SUBJECTIVE: No significant changes. She denies any history of claudication or dyspnea with exertion. She has had a mild COPD. She had an echo that did show an LVEF of around 42%. Also, has grade 1 diastolic dysfunction, is chronic in nature. OBJECTIVE: VITAL SIGNS: T-max last 24 hours is 98.4, pulse 89, respiratory rate is 20, blood pressure 115/59, O2 saturation 95% on room air. GENERAL: She is alert, in no acute distress at time of exam. HEENT: Pupils equal, round and reactive to light. Sclerae are anicteric. Oropharynx is clear. Mucous membranes are moist. NECK: Supple, no lymphadenopathy. CARDIOVASCULAR: At time of exam is regular rate and rhythm. LUNGS: Clear bilaterally. No wheezing. ABDOMEN: Soft. Bowel sounds are present, nontender to palpation. EXTREMITIES: No cyanosis, clubbing or significant edema. NEUROLOGIC: Grossly nonfocal. LABORATORY DATA: CBC: White count 9.7, hemoglobin 10.9, platelets 303. Sodium 142, potassium 3.5, chloride 110, CO2 is 26, BUN 14, creatinine 0.9, glucose is 87, calcium is 8.9, total bilirubin 0.2, AST 14, ALT 7, alkaline phosphatase 83, total protein is 4.4, albumin 1.4, lipase 406. ASSESSMENT AND PLAN: The patient is a 68-year-old woman here with severe protein-calorie malnutrition, biliary dyskinesia, history of chronic obstructive pulmonary disease, grade 1 diastolic dysfunction with no signs of ischemic cardiac disease. 1. Continue cardiovascular medications. 2. General surgery is consulted. She is relatively low risk for cholecystectomy from a cardiovascular standpoint. 3. Nutritionally, she is nutritionally behind with albumin 1.4. She has been n.p.o. for several days contributing to this. Depending on whether she is going to have surgery or not, we will give nutritional supplements. Time spent on 07/13/2018 is 25 minutes. Avery Stroud MD DR: ANU/sania JOB# [id number]
[2018-07-15] MEDS: LACTATED RINGERS 1,000 ML IV SCH ×3 (03:18→20:13)
[2018-07-15 04:41] LABS: BASOPHIL % 0.5 % (0.0-0.2); EOSINOPHIL # 0.5 10^3/uL (0.0-0.2); EOSINOPHIL % 5.9 % (0.0-5.0); HEMOGLOBIN 10.9 g/dL (12.0-15.0); LYMPHOCYTES # 2.7 10^3/uL (1.0-4.8); LYMPHOCYTES % 34.7 % (24.0-44.0); MEAN CELL HGB 30.1 pg (26-34); MEAN CELL HGB CONCENTRATION 33.3 g/dL (33-37); MEAN CORP VOLUME 90.3 fL (78-100); MEAN PLATELET VOLUME 10.8 fL (7.8-11.0); MONOCYTES # 0.8 10^3/uL (0.3-0.8); MONOCYTES % 10.6 % (5.0-12.0); NEUTROPHIL # 3.8 10^3/uL (1.8-7.7); RED CELL DISTRIBUTION WIDTH 14.9 % (11.5-14.5); WHITE BLOOD CELL 7.8 10^3/uL (4.5-11.0)
[2018-07-15 05:00] LABS: CARBON DIOXIDE 25.6 mmol/L (20.0-32)
[2018-07-15] MEDS ORDERED: NS 100ML 100 ML IV ONE (05:34)
[2018-07-15] MEDS: MEROPENEM 500 MG in NS 100ML 100 ML IV SCH ×3 (05:37→20:20)
--- NOTE | 2018-07-15 06:30 | NUR ---
REPORT REPORT RECEIVED FROM LE PINA. ASSUMED CARE OF PT.
[2018-07-15] MEDS ORDERED: NEOSTIGMINE ONE (06:53)
[2018-07-15] MEDS ORDERED: LIDOCAINE 2% VIAL ONE (06:53)
[2018-07-15] MEDS ORDERED: ZOFRAN ONE (06:53)
[2018-07-15] MEDS ORDERED: TORADOL ONE (06:53)
[2018-07-15] MEDS ORDERED: DECADRON ONE (06:53)
[2018-07-15] MEDS ORDERED: DIPRIVAN IV ONE (06:54)
[2018-07-15] MEDS ORDERED: VERSED ONE (06:54)
[2018-07-15] MEDS ORDERED: ZEMURON IV ONE (06:54)
[2018-07-15] MEDS ORDERED: SUBLIMAZE ONE (06:54)
--- NOTE | 2018-07-15 07:18 | PNH ---
DATE: SUBJECTIVE: A 68-year-old female, in no acute distress. She was seen in her room today. She is tolerating some diet yesterday. She has continued abdominal pain that is improved. No chest pain or trouble breathing. OBJECTIVE: VITAL SIGNS: Last temperature is 97.8, pulse 68, respiratory rate of 18, blood pressure 119/55. ABDOMEN: The bowel sounds are positive, but soft. Her tenderness is improved. ASSESSMENT: 1. Chronic cholecystitis. 2. History of pancreatitis. 3. Extensive history of tobacco use. 4. Iatrogenic coagulopathy, on Plavix. PLAN: 1. The patient is seen and examined. Chart reviewed. 2. The patient has been seen by Cardiology, now has been cleared for surgery. 3. Plavix has been held by Cardiology. 4. Continue medical management per the primary service. We will plan for laparoscopic cholecystectomy tomorrow. The patient will have a type and screen preop in case she has bleeding problems after surgery. Erick Stuart DO DR: LI/sania JOB# [id number] CC: Avery Carrillo MD
[2018-07-15] MEDS ORDERED: LOVENOX SQ STA (08:04)
[2018-07-15] MEDS ORDERED: SENSORCAINE-MPF 0.25% VIAL ONE (08:50)
[2018-07-15] MEDS ORDERED: SODIUM CHLORIDE IRR BAG 1,000 ML ONE (08:50)
[2018-07-15] MEDS ORDERED: SODIUM CHLORIDE IR ONE (08:50)
[2018-07-15] MEDS: DUONEB 0.5 MG-3 MG/3 ML SOLN IH PRN ×2 (08:53→20:57)
[2018-07-15] MEDS: KEPPRA PO SCH ×2 (09:10→21:29)
[2018-07-15] MEDS: COREG PO SCH ×2 (09:10→21:29)
--- NOTE | 2018-07-15 09:15 | NUR ---
STATUS MEDS GIVEN AND PT WAS TAKEN TO OR.
[2018-07-15] MEDS: KLOR-CON 10 PO SCH (10:30)
[2018-07-15] MEDS: PROCARDIA PO SCH (10:30)
[2018-07-15] MEDS ORDERED: WATER ONE (10:53)
[2018-07-15] MEDS ORDERED: APRESOLINE ONE (11:23)
[2018-07-15] MEDS ORDERED: ZOFRAN IV PRN (11:30)
[2018-07-15] MEDS ORDERED: SUBLIMAZE IV PRN (11:30)
[2018-07-15] MEDS ORDERED: APRESOLINE IV PRN (11:30)
[2018-07-15] MEDS ORDERED: PHENERGAN IV PRN (11:30)
[2018-07-15] MEDS: ZOFRAN IV PRN ×3 (11:35→20:12)
[2018-07-15] MEDS ORDERED: LACTATED RINGERS 1,000 ML ONE (11:43)
--- NOTE | 2018-07-15 12:06 | NUR ---
PT RETURNED FROM [facility] AT THIS TIME
[2018-07-15] MEDS: PLAVIX PO SCH (13:42)
[2018-07-15] MEDS: PROTONIX PO SCH (13:42)
[2018-07-15] MEDS: ZOLOFT PO SCH (13:42)
--- NOTE | 2018-07-15 15:01 | NUR ---
STATUS PT IS RESTING AT THIS TIME. SPECIAL VITALS STILL RECORDING. VITAL SIGNS ARE STABLE WITH NO SIGNS OF DISCOMFORT. WILL CONTINUE TO MONITOR. CALL LIGHT IS WITHIN REACH.
--- NOTE | 2018-07-15 15:15 | OPH ---
DATE OF SURGERY: PREOPERATIVE DIAGNOSES: History of chronic cholecystitis, history of pancreatitis. POSTOPERATIVE DIAGNOSES: 1. Acute and chronic cholecystitis. 2. Intra-abdominal adhesions. 3. Normal esophagogastroscopy with dilated D1, D2 and an adequate visualization to D3. SURGEON: Erick Stuart DO SEISMIC PROSPECTING SUPERVISOR: OR staff. ANESTHESIA: General by Baljeet Lomas CRNA plus local used on the field. PROCEDURES PERFORMED: 1. Laparoscopic-assisted cholecystectomy. 2. Esophagogastroduodenoscopy. SPECIMENS: Gallbladder to path. ESTIMATED BLOOD LOSS: 23 mL. COUNTS: At the completion of the case, counts were correct per OR staff. DESCRIPTION OF PROCEDURE: The patient is a very pleasant 68-year-old female known from previous evaluation. Prior to procedure, informed consent was obtained. At the time of procedure, she was taken to the operative suite and placed in supine position. After timeout was completed, general anesthesia was obtained and her abdomen was prepped and draped in normal fashion. Local was used to anesthetize the infraumbilical region. Incision was created and 5 mm trocar was introduced into the abdomen. Once in the abdomen, pneumoperitoneum was induced to the level of 40 mmHg. Next, under camera visualization, a 5 mm trocar was placed in the midline at the epigastrium towards the right upper quadrant and another one was placed in the mid abdomen towards right upper quadrant. There was noted to be adhesions in the mid abdomen to the right side. These were addressed using electrocautery to allow exposure. Next, four trocars were placed laterally in the right upper quadrant. The gallbladder retracted and exposed. Attention was directed to the infundibulum. A gentle dissection was made to the inflamed adipose tissue to expose what approved to be the cystic duct. Once it was clearly isolated, it was clipped twice proximally and once distally and divided sharply. Further dissection was made to isolate what proved to be anterior branch of cystic artery. It was clipped twice proximally and once distally and divided sharply. The gallbladder was then gently removed from liver bed using electrocautery posteriorly, the large branch of the cystic artery was identified. It was divided with electrocautery and clipped twice proximally. The gallbladder was then removed from liver bed using electrocautery completely. Once completely removed, it was placed in EndoCatch bag and removed through the epigastric trocar and passed to backtable. Trocar was reinserted. The gallbladder fossa was irrigated with sterile saline, inspected for bleeding. Any bleeding identified was controlled with electrocautery. With meticulous hemostasis noted, irrigation and suctioned. After gross inspection, the abdomen was noted the adhesions in the omentum to the right abdominal wall previously mobilized do not appear to cause decompression of grossly dilated D1, D2 at the duodenum. Subsequently, with camera visualization, all 4 trocar sites were localized. Camera was placed in superior trocar and 3 inferior trocars were removed with camera visualization. There was noted to be no bleeding. Superior trocar was removed with camera visualization through the trocar tract after reduction of pneumoperitoneum. The 4 skin incisions were closed with 4-0 Monocryl. The patient was cleaned. Steri-Strips and dressings were applied. Drapes removed. Intraoperatively, the patient remains anesthetized. Esophagogastroduodenoscope was advanced transorally with pneumoinsufflation distally. It was easily passed through the pylorus into D1 and D2; however, attempts were made to dilate D3 and there was no clear obstruction. It is not easily dilated due to the redundancy of D1, D2 and we were not able to advance the scope to the level of D3. Subsequently, esophagogastroduodenoscope was slowly withdrawn to facilitate visualization of what appears to be normal, but dilated D2, D1, pylorus. There was no gastritis noted. The retroflexed maneuver was performed. Cardia and fundus were grossly normal. Camera was reduced. Stomach was decompressed. Scope was slowly withdrawn. Distal, mid and proximal esophagus were within normal limits. Vocal cords were poorly visualized because endotracheal tube is in place. The camera was removed. Procedure was discontinued. The patient tolerated these procedures well. There were no acute complications noted. Erick Stuart DO DR: LI/sania JOB# [id number] CC: Avery Stroud MD
[2018-07-15] MEDS: DILAUDID IV PRN ×2 (16:33→20:12)
--- NOTE | 2018-07-15 19:14 | NUR ---
REPORT REPORT GIVEN TO ONCOMING SHIFT
--- NOTE | 2018-07-15 20:15 | NUR ---
sitting up in bed using incentive spirometer
[2018-07-15] MEDS: ZOCOR PO SCH (21:28)
[2018-07-15] MEDS: SINGULAIR PO SCH (21:29)
[2018-07-15] MEDS: DESYREL PO SCH (21:29)
--- NOTE | 2018-07-15 21:30 | NUR ---
pt ambulated in hallway around 150 ft. pt tolerated fair, stated that she felt nauseated hlf way back to room. once she sat on the side bed and took a couple of slow deep breaths stated the nausea was alot better. denies needing any medicine for the nausea. pt back in bed, scd's yayo calfs machine on, side rails up x2, call light in reach. she also used her I/S while i was in room, pt is able to get it to 1000 but can only do it consistant x 3 times.
[2018-07-15] MEDS: TORADOL IV PRN (21:58)
--- NOTE | 2018-07-15 23:31 | PNH ---
DATE: 07/15/2018 SUBJECTIVE: No significant changes. She was seen by Cardiology yesterday. Scheduled for cholecystectomy today. OBJECTIVE: VITAL SIGNS: T-max last 24 hours is 98.0, pulse of 70, respiratory rate is 18, blood pressure 159/70, O2 saturation 93% on room air. GENERAL: She is alert, in no acute distress at time of exam. HEENT: Pupils equal, round, reactive to light. Sclerae are anicteric. Oropharynx is clear. Mucous membranes clear. Mucous membranes are moist. NECK: Supple, no lymphadenopathy. CARDIOVASCULAR: Regular rate and rhythm. LUNGS: Clear bilaterally. ABDOMEN: Soft. Bowel sounds are present, nontender to palpation. EXTREMITIES: No cyanosis, clubbing or significant edema. NEUROLOGIC: Grossly nonfocal. LABORATORY DATA: CBC: White count 7.8, hemoglobin 10.9, platelets 329. Sodium 144, potassium 3.7, chloride 111, CO2 is 25, BUN 15, creatinine 0.9, glucose is 75. Calcium is 9.0, total bilirubin 0.3, AST 16, ALT is 8, alkaline phosphatase 94, total protein 4.5, albumin 1.5. ASSESSMENT AND PLAN: The patient is a 68-year-old woman here with biliary dyskinesia with resolved pancreatitis with severe protein calorie malnutrition. 1. General Surgery is consulted. She is scheduled for cholecystectomy today. 2. Cardiology was consulted and has seen the patient. She has EF of approximately 42% with a mild stage 1 diastolic dysfunction. Continue current cardiovascular medications. 3. O2 protocol, nebulizer treatments as needed. Time spent on 07/15/2018 is 25 minutes. Avery Stroud MD DR: ANU/sania JOB# [id number]
[2018-07-16] MEDS: NORCO 5MG PO PRN ×2 (00:19→13:51)
[2018-07-16 01:02] VITALS: BP 138/61
[2018-07-16] MEDS: ZOFRAN IV PRN ×3 (02:51→17:22)
[2018-07-16] MEDS: DILAUDID IV PRN (02:51)
[2018-07-16] MEDS: MEROPENEM 500 MG in NS 100ML 100 ML IV SCH ×3 (04:15→19:48)
[2018-07-16] MEDS: LACTATED RINGERS 1,000 ML IV SCH ×2 (04:30→16:00)
[2018-07-16 04:49] VITALS: BP 143/53
[2018-07-16 08:16] VITALS: BP 158/84
[2018-07-16] MEDS: DUONEB 0.5 MG-3 MG/3 ML SOLN IH PRN ×2 (08:22→20:32)
[2018-07-16] MEDS: PROTONIX PO SCH (08:25)
[2018-07-16] MEDS: PLAVIX PO SCH (08:26)
[2018-07-16] MEDS: KLOR-CON 10 PO SCH (08:26)
[2018-07-16] MEDS: KEPPRA PO SCH ×2 (08:26→20:53)
[2018-07-16] MEDS: COREG PO SCH ×2 (08:27→20:53)
[2018-07-16] MEDS: ZOLOFT PO SCH (08:27)
[2018-07-16] MEDS: PROCARDIA PO SCH (08:28)
--- NOTE | 2018-07-16 08:46 | PRM.PN ---
Subjective Subjective Date: Jul 16, 2018 Time: 08:30 Subjective Pt c/o some pains but tolerating po so far Patient History: Unknown 33 MOTHER 33 FATHER VTE VTE Risk Total Score: 2 VTE Risk Score VTE Risk: Score 0-1 = Low Risk (Aggressive mobilization; early ambulation; no VTE prophylaxis required) Score 2: Moderate Risk (Intermittent/Pneumatic Compression Device OR Lovenox/Heparin/Coumadin) Score 3-4: High Risk (Intermittent/Pneumatic Compression Device AND Lovenox/Heparin/Coumadin) Score > or =5: Highest Risk (Intermittent/Pneumatic Compression Device AND Lovenox/Heparin/Coumadin) Antico:Hep/LMWH/Coum/Xarelto: No Mechanical device ordered: Yes Reasons not ordering prophylax: At risk for falls Review of Systems Constitutional: No: Fever Eyes: No: Pain, Vision change, Conjunctivae inflammation ENT: Other; No: Ear pain, Ear discharge, Nose pain, Nose discharge Respiratory: No: Cough, Shortness of breath Cardiovascular: No: Chest Pain, Palpitations, Orthopnea Gastrointestinal: Nausea, Abdominal Pain; No: Vomiting Musculoskeletal: No: neck pain, shoulder pain Skin: No: Lesions, Jaundice Neurological: No: Confusion, Seizures Allergies: Coded Allergies: codeine (Verified Allergy, Unknown, 03/29/17) Scheduled Albuterol Sulfate (Ventolin Hfa), 18 GM IH Q6HR, (Reported) Carvedilol 3.125MG (Coreg 3.125MG), 1 TAB PO BID, (Reported) Clopidogrel Bisulfate (Plavix), 1 TAB PO DAILY, (Reported) Levetiracetam (Keppra), 500 MG PO BID Montelukast Sodium (Montelukast Sodium), 1 TAB PO HS, (Reported) Nifedipine (Nifedipine Er), 90 MG PO DAILY24, (Reported) Omeprazole (Omeprazole), 40 MG PO DAILY24, (Reported) Potassium Chloride (Potassium Chloride), 20 MEQ PO DAILY24 Sertraline Hcl (Zoloft), 1 TAB PO DAILY, (Reported) Simvastatin (Simvastatin), 1 TAB PO HS Trazodone Hcl (Trazodone Hcl), 1.5 TAB PO HS, (Reported) Umeclidinium Brm/Vilanterol Tr (Anoro Ellipta 62.5-25 Mcg INH), 1 EACH IH DAILY24, (Reported) Objective Vitals and I/O Vital Sign - Last 24 Hours 07/15/18 07/15/18 07/15/18 07/15/18 08:54 09:03 09:10 11:10 Temp 98 98.0 Pulse 76 78 78 72 Resp 18 18 16 B/P (MAP) 159/70 190/85 (120) Pulse Ox 96 94 100 O2 Delivery Hi Con Mask O2 Flow Rate 10 07/15/18 07/15/18 07/15/18 07/15/18 11:10 11:25 11:27 11:38 Temp 98 98.3 98.0 98.3 Pulse 60 60 61 Resp 18 18 B/P (MAP) 162/65 (97) 190/79 162/65 (97) Pulse Ox 98 97 O2 Delivery Room Air Room Air O2 Flow Rate 10 07/15/18 07/15/18 07/15/18 07/15/18 11:48 15:15 20:20 20:30 Temp 98.5 97.7 97.5 98.5 97.7 97.5 Pulse 59 70 68 Resp 17 18 B/P (MAP) 155/65 (95) 144/67 (92) 152/67 (95) Pulse Ox 98 99 95 O2 Delivery Room Air Room Air Room Air Room Air 07/15/18 07/15/18 07/15/18 07/16/18 20:57 21:03 21:29 01:02 Temp 97.7 97.7 Pulse 65 68 69 68 Resp 18 18 B/P (MAP) 152/67 138/61 (86) Pulse Ox 94 95 95 O2 Delivery Room Air 07/16/18 07/16/18 07/16/18 07/16/18 04:49 08:16 08:23 08:27 Temp 97.7 97.7 97.7 97.7 Pulse 65 56 66 66 Resp 18 B/P (MAP) 143/53 (83) 158/84 (108) 158/84 Pulse Ox 94 95 95 O2 Delivery Room Air Room Air 07/16/18 08:29 Pulse 64 Resp 18 Pulse Ox 96 Intake and Output 07/15/18 07/15/18 07/16/18 15:00 23:00 07:00 Intake Total 600 ml 472 ml 60 ml Output Total 900 ml Balance 600 ml -428 ml 60 ml General: Alert, Cooperative, No acute distress HEENT: Atraumatic, PERRLA, EOMI, Mucous membr. moist/pink Neck: Supple, No thyromegaly Lungs: Clear to auscultation, Normal air movement Heart: Regular rate, Normal S1, Normal S2 Abdomen: Soft Extremities: No clubbing, No cyanosis Skin: No breakdown Psych/Mental Status: Mental status NL, Mood NL Course Sepsis Screening Results: Posi: NEGATIVE Sepsis Qualifier/Stage: NO DEFINITE RISK Vitals & review Data Vital Sign - Last 24 Hours 07/09/18 07/09/18 07/09/18 12:49 12:50 12:52 Temp 97.5 97.8 97.8 97.5 97.8 97.8 Pulse 104 104 104 Resp 20 20 20 B/P (MAP) 153/117 (129) Pulse Ox 97 97 O2 Delivery Room Air Room Air Assessment/Plan Assessment/Plan Assessment/Plan 68 yo female s/p lap denisha for biliary dyskinesia, HTN, CAD, chronic diastolic HF - await CT of abd with po contrast to evaluate small intestine - follow clinically JAYLEN WILLOUGHBY MD Jul 16, 2018 08:46
--- NOTE | 2018-07-16 09:51 | NUR ---
AMBULATION PT AMBULATED TO NURSES' STATION AND BACK TO HER ROOM. TOLERATED WITHOUT ANY COMPLAINTS.
[2018-07-16] MEDS ORDERED: REGLAN IV ONE (10:30)
[2018-07-16 12:34] VITALS: BP 140/54
--- NOTE | 2018-07-16 13:14 | DIREP ---
This report includes an Addendum and supersedes previous reports for this exam. PROCEDURE:XR ABDOMEN 2 VIEWS COMPARISON:[facility], CT, CT ABDOMEN W/O, 07/16/2018, 09:25 AM. INDICATIONS:abdominal pain 4 HOUR DELAY FILM TECHNIQUE:Flat and upright views of the abdomen are provided. FINDINGS: BOWEL GAS PATTERN:Note is made of colonic gas along with gas within the small bowel, question ileus. Please also see a separate report of the CT scan performed earlier in the day on 07/16/2018 at 9:25 a.m. which showed evidence for free air within the abdomen. CALCIFICATIONS:None significant. LUNG BASES:Left lower lobe atelectasis identified. Left-sided effusion also suspected. BONES:Normal. OTHER:No additional findings. CONCLUSION:Colonic and small bowel gas, question ileus. Please see a separate report of the CT done earlier in the day. Dictated by: Sabino Bright MD on 07/16/2018 at 01:10 PM NDUM: Findings discussed with Dr Erick Stuart MD at 1:18 p.m. this afternoon. - . Dictated by: Sabino Bright MD on 07/16/2018 at 01:16 PM
--- NOTE | 2018-07-16 13:51 | NUR ---
c/o of pain Pt C/O OF "ACHING PAIN AT 8/10 "RATING SCALE ADMINISTERED NORCO 5 MG PRN PER ORDER.
--- NOTE | 2018-07-16 14:03 | DIREP ---
PROCEDURE: CT ABDOMEN W/O COMPARISON: [facility], CT, CT ABD/PELVIS W/ CONTRAST, 2017, 02:06 PM. INDICATIONS: D2 Changes TECHNIQUE: Axial images were created through the abdomen without intravenous contrast material. Oral contrast was administered. Sagittal and coronal reconstructions were performed from source images. FINDINGS: LUNG BASES: Small left pleural effusion with associated atelectasis. LIVER: No focal lesion. BILIARY: Gallbladder surgically absent. No definite biliary ductal dilatation. PANCREAS: Partial fatty atrophy. No definite focal lesion. SPLEEN: Normal. No enlargement or focal lesion. ADRENALS: Normal. No mass or enlargement. URINARY TRACT: No hydronephrosis nephrolithiasis. No ureteral calculi within the visualized portions. AORTA/VASCULAR: Limited without IV contrast. Diffuse, severe aortic atherosclerotic calcification. Calcific density and splenic hilum, could represent calcified pseudoaneurysm. RETROPERITONEUM: No mass or adenopathy. BOWEL/MESENTERY: Locules of free air along the falciform ligament and adjacent to dilated bowel loops within the mid abdomen (series 2, image [id number]). Stomach distended with oral contrast which only progresses to the proximal small bowel to the extent visualized. No dilated small bowel loops are seen within the abdomen. Air-filled, prominent ascending and transverse colon. Extensive fecal residue is seen within the descending colon. Evaluation limited without visualization of the pelvis. ABDOMINAL WALL: Diffuse soft tissue attenuation, likely indicating anasarca. PELVIC ORGANS: The pelvis was not imaged. BONES: Mild degenerative change throughout the visualized osseous structures. OTHER: Negative. CONCLUSION: 1. Free air within the upper abdomen, concerning for perforated viscus. Distention of stomach and prominent colonic loops. Evaluation limited without visualization of the pelvis. Recommend cross sectional imaging of the pelvis. 2. Anasarca. 3. Additional findings as described. Dictated by: Jm Bright MD on 07/16/2018 at 12:04 PM [facility]
[2018-07-16 17:34] VITALS: BP 155/58
[2018-07-16] MEDS: TORADOL IV PRN ×2 (17:42→23:26)
[2018-07-16 18:45] VITALS: BP 150/58
--- NOTE | 2018-07-16 20:00 | NUR ---
Pt incontinent of bowel, gown and bedding changed, rhiannon care per nursing
[2018-07-16] MEDS: DESYREL PO SCH (20:52)
[2018-07-16] MEDS: SINGULAIR PO SCH (20:53)
[2018-07-16] MEDS: ZOCOR PO SCH (20:53)
--- NOTE | 2018-07-16 21:24 | NUR ---
Pt up with assist x1 to ambulate in the nesbitt, ambulated total of 120 feet, tolerated well
--- NOTE | 2018-07-16 21:45 | NUR ---
pt incontinent of bowel gown and linen changed, rhiannon care per nursing
[2018-07-17] VITALS: BP 128/60
[2018-07-17] MEDS: LACTATED RINGERS 1,000 ML IV SCH ×2 (00:30→03:08)
[2018-07-17] MEDS: MEROPENEM 500 MG in NS 100ML 100 ML IV SCH ×3 (03:08→19:44)
[2018-07-17 04:00] VITALS: BP 109/51
--- NOTE | 2018-07-17 06:39 | NUR ---
REPORT TO DI PETERSEN
--- NOTE | 2018-07-17 07:09 | NUR ---
REPORT REPORT RECEIVED FROM FO[employer]ER
--- NOTE | 2018-07-17 07:45 | PRM.PN ---
Subjective Subjective Date: Jul 17, 2018 Time: 07:30 Subjective Pt had multiple BMs and feels better; tolerating liquids Patient History: Unknown 32 MOTHER 33 FATHER VTE VTE Risk Total Score: 2 VTE Risk Score VTE Risk: Score 0-1 = Low Risk (Aggressive mobilization; early ambulation; no VTE prophylaxis required) Score 2: Moderate Risk (Intermittent/Pneumatic Compression Device OR Lovenox/Heparin/Coumadin) Score 3-4: High Risk (Intermittent/Pneumatic Compression Device AND Lovenox/Heparin/Coumadin) Score > or =5: Highest Risk (Intermittent/Pneumatic Compression Device AND Lovenox/Heparin/Coumadin) Antico:Hep/LMWH/Coum/Xarelto: No Mechanical device ordered: Yes Reasons not ordering prophylax: At risk for falls Review of Systems Constitutional: No: Fever Eyes: No: Pain, Vision change, Conjunctivae inflammation ENT: Other; No: Ear pain, Ear discharge, Nose pain, Nose discharge Respiratory: No: Cough, Shortness of breath Cardiovascular: No: Chest Pain, Palpitations, Orthopnea Gastrointestinal: Abdominal Pain (improved); No: Vomiting, Constipation Musculoskeletal: No: neck pain, shoulder pain Skin: No: Lesions, Jaundice Neurological: No: Change in speech, Confusion, Seizures Allergies: Coded Allergies: codeine (Verified Allergy, Unknown, 03/29/17) Scheduled Albuterol Sulfate (Ventolin Hfa), 18 GM IH Q6HR, (Reported) Carvedilol 3.125MG (Coreg 3.125MG), 1 TAB PO BID, (Reported) Clopidogrel Bisulfate (Plavix), 1 TAB PO DAILY, (Reported) Levetiracetam (Keppra), 500 MG PO BID Montelukast Sodium (Montelukast Sodium), 1 TAB PO HS, (Reported) Nifedipine (Nifedipine Er), 90 MG PO DAILY24, (Reported) Omeprazole (Omeprazole), 40 MG PO DAILY24, (Reported) Potassium Chloride (Potassium Chloride), 20 MEQ PO DAILY24 Sertraline Hcl (Zoloft), 1 TAB PO DAILY, (Reported) Simvastatin (Simvastatin), 1 TAB PO HS Trazodone Hcl (Trazodone Hcl), 1.5 TAB PO HS, (Reported) Umeclidinium Brm/Vilanterol Tr (Anoro Ellipta 62.5-25 Mcg INH), 1 EACH IH DAILY24, (Reported) Objective Vitals and I/O Vital Sign - Last 24 Hours 07/16/18 07/16/18 07/16/18 07/16/18 08:16 08:23 08:27 08:29 Temp 97.7 97.7 Pulse 56 66 66 64 Resp 18 18 18 B/P (MAP) 158/84 (108) 158/84 Pulse Ox 95 95 96 O2 Delivery Room Air 07/16/18 07/16/18 07/16/18 07/16/18 08:40 12:34 17:34 18:45 Temp 97.6 97.8 97.4 97.6 97.8 97.4 Pulse 67 58 60 Resp 18 B/P (MAP) 140/54 (82) 155/58 (90) 150/58 (88) Pulse Ox 98 97 97 O2 Delivery Room Air Room Air Room Air Room Air 07/16/18 07/16/18 07/16/18 07/16/18 18:45 20:33 20:33 20:37 Pulse 63 64 Resp 18 Pulse Ox 93 95 95 O2 Delivery Room Air 07/16/18 07/17/18 07/17/18 20:53 00:00 04:00 Temp 98.4 98.6 98.4 98.6 Pulse 64 78 68 Resp 18 18 B/P (MAP) 155/58 128/60 (82) 109/51 (70) Pulse Ox 95 94 O2 Delivery Room Air Room Air Intake and Output 07/16/18 07/16/18 07/17/18 15:00 23:00 07:00 Intake Total 1480 ml 1020 ml Output Total 300 ml Balance 1480 ml 720 ml General: Alert, Cooperative, No acute distress HEENT: Atraumatic, Mucous membr. moist/pink Neck: Supple, No LAD Lungs: Clear to auscultation, Normal air movement Heart: Normal S1, Normal S2 Abdomen: Normal bowel sounds, Soft Extremities: No clubbing, No cyanosis Skin: No rashes Neuro: Normal speech Psych/Mental Status: Mental status NL, Mood NL Course Sepsis Screening Results: Posi: NEGATIVE Sepsis Qualifier/Stage: NO DEFINITE RISK Vitals & review Data Vital Sign - Last 24 Hours 07/09/18 07/09/18 07/09/18 12:49 12:50 12:52 Temp 97.5 97.8 97.8 97.5 97.8 97.8 Pulse 104 104 104 Resp 20 20 20 B/P (MAP) 153/117 (129) Pulse Ox 97 97 O2 Delivery Room Air Room Air Assessment/Plan Assessment/Plan Assessment/Plan 68 yo female s/p lap denisha for biliary dyskinesia, CAD, HTN, chronic diastolic HF - increase activity - advance diet - D/C planning JAYLEN WILLOUGHBY MD Jul 17, 2018 07:45
[2018-07-17 08:17] VITALS: BP 105/46
[2018-07-17] MEDS: COREG PO SCH ×3 (09:00→21:15)
[2018-07-17] MEDS: PLAVIX PO SCH (09:10)
[2018-07-17] MEDS: PROTONIX PO SCH (09:11)
[2018-07-17] MEDS: ZOLOFT PO SCH (09:11)
[2018-07-17] MEDS: KEPPRA PO SCH ×2 (09:11→21:15)
[2018-07-17] MEDS: DUONEB 0.5 MG-3 MG/3 ML SOLN IH PRN ×2 (09:25→20:42)
--- NOTE | 2018-07-17 10:17 | NUR ---
STATUS PT AMBULATED THE HALLS 200 FT WITH ASSIST FROM CHECO BOWMAN. PT TOLERATED WELL. PT IS NOW IN ROOM SITTING IN RECLINER AT THIS TIME. CALL LIGHT IN REACH
[2018-07-17] MEDS: PROCARDIA PO SCH (10:30)
[2018-07-17] MEDS: KLOR-CON 10 PO SCH (11:44)
[2018-07-17 11:51] VITALS: BP 104/52
--- NOTE | 2018-07-17 11:56 | NUR ---
STATUS PT RETURNED TO BED AT THIS TIME FROM CHAIR. PT TOLERATED TRANSFER WELL. NO OTHER NEEDS NOTED AT THIS TIME. CALL LIGHT IN REACH
[2018-07-17 16:46] VITALS: BP 117/49
[2018-07-17] MEDS: ZOFRAN IV PRN (17:22)
[2018-07-17 20:12] VITALS: BP 138/65
[2018-07-17] MEDS: DESYREL PO SCH (21:14)
[2018-07-17] MEDS: SINGULAIR PO SCH (21:15)
[2018-07-17] MEDS: ZOCOR PO SCH (21:15)
[2018-07-17] MEDS: NORCO 5MG PO PRN (22:24)
--- NOTE | 2018-07-17 22:42 | PNH ---
DATE: This is a delayed dictation for 07/16/2018. SUBJECTIVE: A 68-year-old female who is in no acute distress on the times I saw her in her room. She did tolerate some contrast, had some nausea and vomiting afterwards. She subsequently had multiple bowel movements. OBJECTIVE: VITAL SIGNS: She was afebrile yesterday. Last vital signs reviewed yesterday were temperature 97.8, pulse 58, respiratory rate of 18, blood pressure 155/58. The remaining vitals were reviewed. ABDOMEN: The bowel sounds are positive. She has some distention. She had minimal tenderness with incisions. LABORATORY DATA: CT scan is reviewed as well as x-ray with Radiology. There is free air noted consistent with a laparoscopy. She has no signs per the radiologist, Dr. Bright for review of films of SMA syndrome; however, she has some changes consistent with ileus. ASSESSMENT: 1. Status post laparoscopic cholecystectomy. 2. History of pancreatitis. 3. History of hypertension. PLAN: The patient is seen and examined. Chart was reviewed. Continue diet and increase activity as tolerated. Erick Stuart DO DR: LI/sania JOB# [id number] CC: Yi Call MD MTDD
[2018-07-18 00:02] VITALS: BP 136/58
--- NOTE | 2018-07-18 00:49 | PNH ---
DATE: 07/17/2018 SUBJECTIVE: A 68-year-old female in no acute distress. She was up to chair today. She reports she tolerated some diet. She has had multiple bowel movements. OBJECTIVE: VITAL SIGNS: Last temperature is 98.2, pulse 70, respiratory rate 18, blood pressure 105/46. ABDOMEN: The bowel sounds are positive. The distention is improved. She has tenderness in incisions. ASSESSMENT: 1. Status post laparoscopic cholecystectomy. 2. Postop ileus, improved. 3. History of hypertension. 4. Long history of tobacco use. PLAN: 1. The patient is seen and examined, the chart is reviewed. 2. Increase diet and activity as tolerated. 3. We will follow. Erick Stuart DO DR: LI/sania JOB# [id number] CC: Yi Call MD
[2018-07-18] MEDS: MEROPENEM 500 MG in NS 100ML 100 ML IV SCH (04:02)
[2018-07-18 04:07] VITALS: BP 139/59
[2018-07-18 07:50] VITALS: BP 132/55
[2018-07-18 08:40] VITALS: BP 132/55
--- NOTE | 2018-07-18 09:40 | NUR ---
D/C PT D/C INSTRUCTIONS PROVIDED TO PT. PT VERBALIZED UNDERSTANDING. NO S/S OF DISTRESS NOTED. OFF FLOOR VIA W/C, BUCKLED SAFELY INTO CAR ACCOMPANIED BY FRIEND. RELINQUISHED CARE OF PT.
[2018-07-18] MEDS: PLAVIX PO SCH (09:42)
[2018-07-18] MEDS: KEPPRA PO SCH (09:42)
[2018-07-18] MEDS: ZOLOFT PO SCH (09:42)
[2018-07-18] MEDS: PROTONIX PO SCH (09:43)
[2018-07-18] MEDS: COREG PO SCH (09:43)
--- NOTE | 2018-07-18 16:10 | DSH ---
DATE OF DISCHARGE: 07/18/2018 ADMITTING DIAGNOSES: Abdominal pain with acute pancreatitis and biliary dyskinesia with history of hypertension, coronary artery disease, chronic diastolic heart failure, seizure disorder and chronic obstructive pulmonary disease. DISCHARGE DIAGNOSES: Resolved pancreatitis with biliary dyskinesia, status post laparoscopic cholecystectomy with postop ileus, hypertension, coronary artery disease, chronic diastolic heart failure and seizure disorder. HOSPITAL COURSE: The patient is a 68-year-old female who came in with abdominal pain. Lipase was over [address] scan did show a pancreatitis picture. She was gut rested and given some pain medications. It was noted that the cause of her pancreatitis was probably some biliary dyskinesia. Surgery was consulted and Cardiology was consulted and she was taken to the OR and had a laparoscopic cholecystectomy. Afterwards, she did develop a mild postop ileus, but she started to walk around and her bowel started to move fine after 24 hours of the surgery. We advanced her diet to a low fat diet and she has been eating well. She has had multiple bowel movements already. Her vital signs are stable. She feels good, so at this point she will be discharged. She has an appointment to see Dr. Stuart, our surgeon next week. She should stay on a low fat diet. Resume her home medications. No strenuous activity until cleared by Dr. Stuart and take Tylenol as needed for pain currently. Yi Call MD DR: CHARISMA/sania JOB# [id number]
== END 2018-07-18 09:40 | disposition home health service (06) | DRG 417 ==
LOC: EDBD 12:40 → ER 12:40 → MS 15:34
PROVIDERS: ADMIT Internal Medicine; ATTEND Internal Medicine
PROC: 0FT44ZZ Resection of Gallbladder, Percutaneous Endoscopic Approach (ICD-10-PCS; principal; 2018-07-15 08:50)
PROC: 0DJ08ZZ Inspection of Upper Intestinal Tract, Via Natural or Artificial Opening Endoscopic (ICD-10-PCS; 2018-07-15 08:50)
DX: K81.2 Acute cholecystitis with chronic cholecystitis (principal); K85.90 Acute pancreatitis without necrosis or infection, unspecified; E43 Unspecified severe protein-calorie malnutrition; R65.11 Systemic inflammatory response syndrome (SIRS) of non-infectious origin with acute organ dysfunction; I50.32 Chronic diastolic (congestive) heart failure; K56.7 Ileus, unspecified; D68.8 Other specified coagulation defects; K82.8 Other specified diseases of gallbladder; D63.8 Anemia in other chronic diseases classified elsewhere; E78.5 Hyperlipidemia, unspecified; G40.909 Epilepsy, unspecified, not intractable, without status epilepticus; I11.0 Hypertensive heart disease with heart failure; I25.10 Atherosclerotic heart disease of native coronary artery without angina pectoris; I27.20 Pulmonary hypertension, unspecified; I73.9 Peripheral vascular disease, unspecified; J44.9 Chronic obstructive pulmonary disease, unspecified; K21.9 Gastro-esophageal reflux disease without esophagitis; F12.90 Cannabis use, unspecified, uncomplicated; F17.210 Nicotine dependence, cigarettes, uncomplicated; Z90.49 Acquired absence of other specified parts of digestive tract; Z90.710 Acquired absence of both cervix and uterus; Z79.02 Long term (current) use of antithrombotics/antiplatelets; Z79.899 Other long term (current) drug therapy; Z88.5 Allergy status to narcotic agent; Z86.73 Personal history of transient ischemic attack (TIA), and cerebral infarction without residual deficits; Z71.6 Tobacco abuse counseling; Z68.24 Body mass index [BMI] 24.0-24.9, adult
CPT/HCPCS: 36415; 43235; 47562; 74019; 74150; 74177; 76705; 78227; 80048; 80053; 82150; 83690; 85025; 85610; 85651; 85730; 86140; 86677; 86900; 88304; 93005; 93307; 94640; 96374; 96375; 99285; J0360; J1100; J1650; J1885; J2001; J2250; J2405; J2710; J2765; J3010; J3480; J3490; J7030; J7050; J7120; J7620; Q9963; Q9965; A9270; A9537

== ENCOUNTER 2018-08-11 21:13 | Emergency (ER) | payer MEDICARE, MEDICAID ==
[~2018-08-11] VITALS: Ht 170.2 cm; Wt 46.3 kg
[2018-08-11] MEDS ORDERED: DIPRIVAN IV ONE (21:14)
[2018-08-11] MEDS ORDERED: AMIDATE IV ONE (21:14)
[2018-08-11] MEDS ORDERED: NS 1000ML 1,000 ML STA (21:25)
[2018-08-11] MEDS ORDERED: NS 1000ML 1,000 ML ONE (21:28)
--- NOTE | 2018-08-11 21:34 | PCM.EKG ---
[facility] Test Date: 2018-08-11 Test Time: 21:38:20 Pat Name: HERBER ZARATE Department: [id number] Room: Gender: F Mailroom Coordinator: BRODY : 1950 Requested By: BRIAN LOU Order Number: [id number] Reading MD: Measurements Intervals [place] Rate: 87 P: 70 WI: 124 QRS: 66 QRSD: 92 T: 81 QT: 418 QTc: 502 Interpretive Statements Sinus rhythm with frequent premature ventricular complexes in a pattern of bigeminy ST & T wave abnormality, consider inferior ischemia Prolonged QT Abnormal ECG Compared to ECG 07/14/2018 12:20:26 Ventricular premature complex(es) now present ST (T wave) deviation now present Possible ischemia now present Prolonged QT interval now present Sinus arrhythmia no longer present Please click the below link to view image of tracing.
--- NOTE | 2018-08-11 21:43 | ER.PDOC ---
General Chief Complaint: General Complaint Stated Complaint: LEFT SIDED WEAKNESS Time seen by MD: 21:20 Source: patient, EMS Exam Limitations: clinical condition History of Present Illness Initial Comments Pt who apparently started this evening with weakness on left side, arm and leg, she has a h/o previous stroke last year and according to her she did not have any sequela, however, she does have a speech impairment. Timing/Duration: 1-3 hours Severity: moderate New Weakness: LUE, LLE Impairments: Impaired Speech (Pre existent) Decreased Ability to Stand: weak, off balance Usually: orientedx3 Prior symptoms/Treatment: Similar symptoms previous Allergies: Coded Allergies: codeine (Verified Allergy, Unknown, 03/29/17) Home Meds Active Scripts Potassium Chloride (POTASSIUM CHLORIDE) 20 Meq Tab.er.prt, 20 MEQ PO DAILY24, # 30 TAB 1 Refill Prov:JAYLEN WILLOUGHBY MD 05/15/18 Levetiracetam (KEPPRA) 500 Mg Tablet, 500 MG PO BID for 30 Days, #60 TABLET 5 Refills Prov:JAIME MATA MD 04/01/17 Simvastatin (SIMVASTATIN) 40 Mg Tablet, 1 TAB PO HS, #30 TAB 5 Refills Prov:JAIME MATA MD 03/29/17 Reported Medications Carvedilol 3.125MG (COREG 3.125MG) 3.125 Mg Tablet, 1 TAB PO BID, #180 TAB 1 Refill 05/07/18 Umeclidinium Brm/Vilanterol Tr (Anoro Ellipta 62.5-25 Mcg INH) 1 Each Disk.w.dev , 1 EACH IH DAILY24 05/07/18 Albuterol Sulfate (VENTOLIN HFA) 18 Gm Hfa.aer.ad, 18 GM IH Q6HR for SOB 04/16/18 Montelukast Sodium (MONTELUKAST SODIUM) 10 Mg Tablet, 1 TAB PO HS, #30 TAB 5 Refills 04/16/18 Nifedipine (NIFEDIPINE ER) 60 Mg Tablet.er, 90 MG PO DAILY24 04/16/18 Clopidogrel Bisulfate (PLAVIX) 75 Mg Tablet, 1 TAB PO DAILY, #90 TAB 1 Refill 04/16/18 Omeprazole (OMEPRAZOLE) 40 Mg Capsule.dr, 40 MG PO DAILY24, #1 04/16/18 Trazodone Hcl (TRAZODONE HCL) 50 Mg Tablet, 1.5 TAB PO HS, #30 TAB 1 Refill 03/29/17 Sertraline Hcl (ZOLOFT) 100 Mg Tablet, 1 TAB PO DAILY, #30 TAB 5 Refills 03/29/17 Past Medical History Medical History: asthma, CVA/TIA/stroke, COPD, hypertension Surgical History: cholecystectomy, hysterectomy LMP (females 10-50): hysterectomy Social History Smoking: cigarettes, less than 1 pack/day Alcohol Use: none Drug Use: none Review of Systems Constitutional: no symptoms reported Eyes: no symptoms reported Ears, Nose, Mouth, Throat: no symptoms reported Respiratory: no symptoms reported Cardiovascular: no symptoms reported Gastrointestinal: no symptoms reported Genitourinary: no symptoms reported Musculoskeletal: no symptoms reported Skin: no symptoms reported Psychiatric/Neurological: see HPI Endocrine: no symptoms reported Hematologic/Lymphatic: no symptoms reported Physical Exam General Appearance: alert, no distress HEENT: no apparent trauma, EOM's intact, no nystagmus, PERRL, ENT inspection nml, pharynx nml, airway intact, oral exam nml Neuro/Psych: oriented x3, dysarthria Cranial Nerves: nml as tested Cerebellar: abnml gait Peripheral Exam: motor nml, sensation nml, weakness (left LE, minimal LUE) Neck: supple, non-tender, no carotid bruit Respiratory: no resp distress, breath sounds nml CVS: reg rate & rhythm, heart sounds nml Abdomen: tenderness (recent GB surgery) Skin: color nml, no rash, warm/dry Extremities: non-tender, nml ROM, no pedal edema Intubation Intubation : Time of Intubation: 22:43 Intubation Method: orotracheal Blade: curved Tube Size (cm): 7.5 Lip Line (cm): 23 Preoxygenated: Yes Medications: Etomidate, Versed Breath Sounds after Intubation: equal Intubation Complications: oral-unsuccessful attempt Post Intubation Xray: Yes Placement corrected: 2 cm Results/Orders Results/Orders Laboratory Tests Test 08/11/18 21:31 White Blood Count 12.3 10^3/uL (4.5-11.0) Red Blood Count 3.79 10^6/uL (4.00-5.20) Hemoglobin 12.1 g/dL (12.0-15.0) Hematocrit 33.5 % (36.0-46.0) Mean Corpuscular Volume 88.4 fL (78-100) Mean Corpuscular Hemoglobin 31.9 pg (26-34) Mean Corpuscular Hemoglobin Concent 36.1 g/dL (33-37) Red Cell Distribution Width 15.6 % (11.5-14.5) Platelet Count 438 10^3/uL (150-400) Mean Platelet Volume 10.0 fL (7.8-11.0) Neutrophils (%) (Auto) 75.3 % (41.0-85.0) Lymphocytes (%) (Auto) 13.9 % (24.0-44.0) Monocytes (%) (Auto) 8.9 % (5.0-12.0) Neutrophils # (Auto) 9.2 10^3/uL (1.8-7.7) Lymphocytes # (Auto) 1.7 10^3/uL (1.0-4.8) Monocytes # (Auto) 1.1 10^3/uL (0.3-0.8) Absolute Immature Granulocyte (auto 0.03 10^3 u/L (0-2) Eosinophils % 1.5 % (0.0-5.0) Basophils % 0.2 % (0.0-0.2) Basophils # 0.0 10^3/uL (0.0-0.1) Eosinophil Count 0.2 10^3/uL (0.0-0.2) Prothrombin Time 11.4 SEC (9.8-11.9) Prothrombin Time INR (Non-Therap) 1.1 Activated Partial Thromboplast Time 26.5 SEC (24.67-30.72) Sodium Level 137 mmol/L (132-145) Potassium Level 2.0 mmol/L (3.6-5.2) Chloride Level 101.0 mmol/L (96-109) Carbon Dioxide Level 25.6 mmol/L (20.0-32) Anion Gap 12.4 Blood Urea Nitrogen 7 mg/dL (7-18) Creatinine 1.18 mg/dL (0.59-1.40) Estimated GFR () 55.3 (>/=60) BUN/Creatinine Ratio 5.0 Glucose Level 113 mg/dL (70-110) Calcium Level 9.1 mg/dL (8.4-10.5) Total Bilirubin 0.5 mg/dL (0.2-1.0) Aspartate Amino Transf (AST/SGOT) 37 U/L (0-35) Alanine Aminotransferase (ALT/SGPT) 21 U/L (12-78) Alkaline Phosphatase 122 U/L (50-136) Total Creatine Kinase 232 U/L (26-192) Creatine Kinase MB 2.7 ng/mL (0.5-3.6) Troponin I 0.12 ng/mL (0.00-0.05) Total Protein 5.9 g/dL (6.4-8.2) Albumin 2.1 g/dL (3.4-5.0) Globulin 3.8 Percent Immature Gran (Cell Imm) 0.20 % (0.00-0.50) Administered Medications Medications (Trade) Dose Ordered Sig/Jacques Route PRN Reason Start Time Stop Time Status Last Admin Dose Admin Sodium Chloride 1,000 ml @ 125 mls/hr Q8H STAT IV 08/11/18 21:25 08/12/18 05:24 08/11/18 21:35 Potassium Chloride 100 ml @ 50 mls/hr OT STAT IV 08/11/18 22:11 08/12/18 00:10 08/11/18 22:19 Progress Progress At 2215 pt went unresponsive, and we proceeded to intubation as described. Discussed with neurologist at tele stroke and recommended CTA and transfer Departure Time of Disposition: 23:10 Disposition: 02 XFER SHT-TRM HOSP Impression: Primary Impression: Left sided cerebral hemisphere cerebrovascular accident Additional Impression: Non-STEMI (non-ST elevated myocardial infarction) Condition: Critical Referrals: CICI SWARTZ MD (PCP) PRIMARY CARE PROVIDER Duration or Time Spent with Pa: 60 Critical Care Note Total Time (mins): 60 Comments Pt went into unresponsiveness and was intubated BRIAN LOU MD Aug 11, 2018 21:43
[2018-08-11 21:46] LABS: BASOPHIL % 0.2 % (0.0-0.2); EOSINOPHIL # 0.2 10^3/uL (0.0-0.2); EOSINOPHIL % 1.5 % (0.0-5.0); HEMOGLOBIN 12.1 g/dL (12.0-15.0); LYMPHOCYTES # 1.7 10^3/uL (1.0-4.8); LYMPHOCYTES % 13.9 % (24.0-44.0); MEAN CELL HGB 31.9 pg (26-34); MEAN CELL HGB CONCENTRATION 36.1 g/dL (33-37); MEAN CORP VOLUME 88.4 fL (78-100); MONOCYTES # 1.1 10^3/uL (0.3-0.8); MONOCYTES % 8.9 % (5.0-12.0); NEUTROPHIL # 9.2 10^3/uL (1.8-7.7); NEUTROPHILS % 75.3 % (41.0-85.0); PLATELET COUNT 438 10^3/uL (150-400); RED CELL DISTRIBUTION WIDTH 15.6 % (11.5-14.5); WHITE BLOOD CELL 12.3 10^3/uL (4.5-11.0)
[2018-08-11 22:08] LABS: CALCIUM 9.1 mg/dL (8.4-10.5); CARBON DIOXIDE 25.6 mmol/L (20.0-32)
--- NOTE | 2018-08-11 22:08 | DIREP ---
PROCEDURE:CHEST 1 VIEW COMPARISON:None. INDICATIONS:CVA FINDINGS: LUNGS/PLEURA:Lungs are hyperexpanded. No pneumonia, heart failure or effusions are seen. VASCULATURE:Normal. Unremarkable pulmonary vasculature. CARDIAC:Normal. No cardiac silhouette abnormality or cardiomegaly. MEDIASTINUM:Normal. No visible mass or adenopathy. BONES:Normal. No fracture or visible bony lesion. OTHER:Negative. CONCLUSION:No acute disease. Dictated by: Sabino Bright MD on 08/11/2018 at 10:07 PM
[2018-08-11] MEDS ORDERED: KCL 20MEQ/100ML 100 ML IV STA (22:11)
[2018-08-11] MEDS ORDERED: NS 1000 ML/KCL 40MEQ 1,000 ML IV ONE (22:11)
--- NOTE | 2018-08-11 22:16 | NUR ---
UPDATE ENTERED PATIENT ROOM, PATIENT UNRESPONSIVE TO STERNAL RUB, STRONG PULSES PRESENT. PATIENT MOVED TO ER#1, EDP AT BEDSIDE
--- NOTE | 2018-08-11 22:24 | NUR ---
[facility] Dr. Del Valle on phone to [facility]. Neurology to call back
[2018-08-11 22:25] VITALS: BP 229/79
--- NOTE | 2018-08-11 22:30 | NUR ---
VERSED VERSED 5MG IV GIVEN PER EDP
--- NOTE | 2018-08-11 22:33 | DIREP ---
PROCEDURE:CT HEAD OR BRAIN W/O CONTRAST COMPARISON:[facility], CT, CT HEAD BRAIN W/O CONTRAST, 03/29/2017, 12:41 PM. [facility], MR, MRI BRAIN W/WO, 04/01/2017, 05:01 PM. INDICATIONS:CVA TECHNIQUE:Axial CT images were obtained from vertex to the skull base without the administration of IV contrast. FINDINGS: VENTRICLES: The ventricles are normal in size and configuration. No hydrocephalus. CEREBRUM: Remote infarction in the right parietal lobe. Stable mild chronic small vessel white matter ischemic changes with multiple small remote lacunar infarctions in the bilateral basal ganglia. Mild chronic small vessel white matter No intracranial hemorrhage, mass-effect, or midline shift. No CT evidence of acute infarction. CEREBELLUM: Normal. BRAINSTEM: Normal. BASAL CISTERNS: Normal. SKULL: Normal. No fracture. SINUSES: Small fluid level in the left maxillary sinus. Visualized paranasal sinuses and mastoid air cells are otherwise clear. OTHER: Calcified plaque in the carotid siphons. CONCLUSION: 1. No acute intracranial abnormality. 2. Remote right parietal lobe infarction. 3. Stable mild chronic small vessel white matter ischemic changes with multiple small remote lacunar infarctions in the bilateral basal ganglia. 4. Small fluid level in the left maxillary sinus. Correlate for acute sinusitis. Dictated by: Gal Salcedo MD on 08/11/2018 at 10:28 PM
[2018-08-11] MEDS ORDERED: VERSED ONE (22:35)
--- NOTE | 2018-08-11 22:35 | NUR ---
ATTEMPT #2 UNSUCCESSFUL INTUBATION BY EDP
--- NOTE | 2018-08-11 22:36 | NUR ---
IV #2 20G RIGHT WRIST
--- NOTE | 2018-08-11 22:43 | NUR ---
INTUBATION ATTEMPT #3 SUCCESSFUL INTUBATION, 7.5 TUBE AND 25 AT THE LIP
--- NOTE | 2018-08-11 22:47 | NUR ---
NG TUBE 14 F PLACED AT THIS TIME IN RIGHT NARE. PLACEMENT CHECKED BY AUSCULTATION AND XRAY.
--- NOTE | 2018-08-11 22:50 | NUR ---
NEUROLOGIST [facility] EDP ON PHONE WITH [facility] NEUROLOGIST, STATES CTA NEED TO BE DONE
[2018-08-11 23:06] LABS: BILIRUBIN,URINE NEGATIVE (NEGATIVE)
--- NOTE | 2018-08-11 23:10 | NUR ---
PROPOFOL PROPOFOL STARTED AT 2310 AT 20 PER EDP
[2018-08-11 23:16] LABS: APPEARANCE,URINE CLEAR (CLEAR); UA COLOR YELLOW (YELLOW)
--- NOTE | 2018-08-11 23:20 | NUR ---
BREANNA HUITRON CALLED FOR INFO REGARDING PT. STATES THEY WILL BE HERE SHORTLY.
[2018-08-11 23:24] VITALS: BP 127/83
[2018-08-11] MEDS ORDERED: AMIDATE IV STA (23:30)
[2018-08-11] MEDS ORDERED: DIPRIVAN IV PRN (23:30)
[2018-08-11] MEDS ORDERED: VERSED IV STA (23:30)
--- NOTE | 2018-08-11 23:30 | NUR ---
[facility] REPORT GIVEN TO TRINITY ALVARADO, CARE TRANSFERRED TO [facility]
--- NOTE | 2018-08-11 23:51 | DIREP ---
PROCEDURE:CHEST 1 VIEW COMPARISON:[facility], CR, XRAY CHEST SINGLE VW, 08/11/2018, 09:36 PM. [facility], CR, XRAY CHEST SINGLE VW, 05/14/2018, 04:06 PM. INDICATIONS:placement FINDINGS: LINES/TUBES: ETT is been placed and is well positioned above the josue at the T4 level. Gastric catheter is also been placed with its tip in side hole overlying the region of the stomach body in the left upper quadrant. LUNGS/PLEURA: Stable hyperinflation with flattening of the hemidiaphragms, consistent with COPD. No focal consolidation, pleural effusion, or pneumothorax. CARDIAC:Normal size cardiac silhouette and normal vascularity. Stable calcified plaque at the aortic knob. MEDIASTINUM: Normal. BONES: Stable osteopenia and scattered degenerative changes. No acute abnormality. OTHER: Defibrillator pad overlies the right upper chest and left lower chest. CONCLUSION: 1. ETT and gastric catheter are appropriately positioned, as above. 2. Stable findings of COPD. No focal airspace consolidation. Dictated by: Gal Salcedo MD on 08/11/2018 at 11:48 PM
--- NOTE | 2018-08-12 | NUR ---
REPORT TO [facility] REPORT GIVEN TO TRINITY FREITAS
--- NOTE | 2018-08-12 00:15 | DIREP ---
PROCEDURE:CT ANGIOGRAPHY HEAD COMPARISON:[facility], CR, XRAY CHEST SINGLE VW, 08/11/2018, 10:17 PM. [facility], CT, CT HEAD BRAIN W/O CONTRAST, 08/11/2018, 09:31 PM. INDICATIONS:CVA TECHNIQUE:Helical CTA images of the head and neck were obtained following the administration of IV contrast with non-ionic contrast. Sagittal and coronal MIPS reconstructions are provided to optimize visualization of vascular anatomy. FINDINGS: NECK CTA: RIGHT CAROTID SYSTEM:Mild calcified plaque within the right proximal ICA. No hemodynamically significant stenosis. No occlusion or dissection. LEFT CAROTID SYSTEM:Mild calcified plaque within the left proximal ICA. No hemodynamically significant stenosis. No occlusion or dissection. VERTEBRAL ARTERIES: Normal. Codominant vertebral system. No stenosis, occlusion, or dissection. NECK TISSUES:Endotracheal tube and gastric catheter are partially visualized. BONE:Mild cervical spondylosis. No acute abnormality or suspicious osseous lesion. HEAD CTA: INTERNAL CAROTIDS:Mild calcified plaque in the carotid siphons. No hemodynamically significant stenosis. No stenosis, occlusion, or aneurysm. ANTERIOR CEREBRALS:The A1 segment of the right DANDY is mildly hypoplastic, which is a normal variant. Otherwise unremarkable. No stenosis, occlusion, or aneurysm. MIDDLE CEREBRALS:Normal. No stenosis, occlusion, or aneurysm. VERTEBRALS/BASILAR:Normal. No stenosis, occlusion, or aneurysm. POSTERIOR CEREBRALS:The right ACADEMIC DIRECTOR is predominantly supplied by the posterior communicating artery ( origin), which is a normal variant. Otherwise unremarkable. No stenosis, occlusion, or aneurysm. PCOMM'S:Present bilaterally. HEAD SOFT TISSUES: Stable remote right parietal lobe infarction. Stable mild chronic small vessel white matter ischemic changes with small remote lacunar infarctions in the basal ganglia. SINUSES:Small amount of free fluid in the left maxillary sinus. Otherwise clear. OTHER:Negative. Please note that this examination was not tailored for evaluation of the brain parenchyma. CONCLUSION: 1. Mild calcified plaque within the bilateral carotid siphons and bilateral proximal ICAs without hemodynamically significant stenosis. Otherwise normal CTA of the head and upper neck. 2. Additional findings, as above. Dictated by: Gal Salcedo MD on 08/12/2018 at 00:09 AM
== END 2018-08-11 23:30 | disposition short-term general hospital (02) ==
LOC: EDBD 21:13 → ER 21:13
DX: I63.9 Cerebral infarction, unspecified (principal); I21.4 Non-ST elevation (NSTEMI) myocardial infarction; G81.94 Hemiplegia, unspecified affecting left nondominant side; R47.89 Other speech disturbances; I10 Essential (primary) hypertension; J44.9 Chronic obstructive pulmonary disease, unspecified; F17.210 Nicotine dependence, cigarettes, uncomplicated; Z86.73 Personal history of transient ischemic attack (TIA), and cerebral infarction without residual deficits; Z88.5 Allergy status to narcotic agent; Z90.49 Acquired absence of other specified parts of digestive tract; Z90.710 Acquired absence of both cervix and uterus; Z79.899 Other long term (current) drug therapy
CPT/HCPCS: 31500; 36415; 70450; 70496; 71045 ×2; 80053; 81000; 82550; 82553; 84484; 85025; 85610; 85730; 93005; 94002; 96374; 96375; 99291; J2250; J3490; J7030; Q9965; 96361; J3480

== ENCOUNTER 2019-01-25 01:05 | Inpatient (IN) | payer MEDICAID, MEDICARE ==
[2019-01-25] VITALS (82 sets, daily range): BP systolic 99–183; BP diastolic 51–115
[~2019-01-25] VITALS: Ht 170.2 cm; Wt 70.8 kg
[~2019-01-25 01:05] MED LIST changes: -ALEN70TA5 PO; +ALEN70TA6 PO; +TRAZ-124 PO; -TRAZ50TA18 PO
[2019-01-25] MEDS ORDERED: DIPRIVAN IV ONE (01:10)
[2019-01-25] MEDS ORDERED: DIPRIVAN 100 ML IV ONE (01:10)
[2019-01-25] MEDS ORDERED: NS 1000ML 1,000 ML STA (01:31)
[2019-01-25] MEDS ORDERED: VENTOLIN IH ONE (01:35)
[2019-01-25] MEDS ORDERED: DUONEB 0.5 MG-3 MG/3 ML SOLN IH ONE (01:35)
[2019-01-25 01:39] LABS: BASOPHIL # 0.1 10^3/uL (0.0-0.1); BASOPHIL % 0.6 % (0.0-0.2); EOSINOPHIL # 0.4 10^3/uL (0.0-0.2); HEMOGLOBIN 12.4 g/dL (12.0-15.0); LYMPHOCYTES # 3.4 10^3/uL (1.0-4.8); LYMPHOCYTES % 38.2 % (24.0-44.0); MEAN CELL HGB 29.7 pg (26-34); MEAN CORP VOLUME 90.2 fL (78-100); MEAN PLATELET VOLUME 10.9 fL (7.8-11.0); MONOCYTES # 0.9 10^3/uL (0.3-0.8); NEUTROPHIL # 4.2 10^3/uL (1.8-7.7); NEUTROPHILS % 46.5 % (41.0-85.0)
--- NOTE | 2019-01-25 01:52 | ER.PDOC ---
General Chief Complaint: Requesting Medical Care Stated Complaint: DIFFICULTY BREATHING Time seen by MD: 01:06 Source: EMS Exam Limitations: clinical condition (intubated/sedated) History of Present Illness Initial Comments Pt called EMS for trouble breathing, found pt in resp distress, O2 sats in 60' s. Hs COPD, was tried on BiPAP but failed. Pt was intubated by EMS, given Fentanyl and Versed. HR changed from 120's to 80's after intubation Severity: severe Allergies: Coded Allergies: codeine (Verified Allergy, Unknown, 03/29/17) Home Meds Active Scripts Potassium Chloride (POTASSIUM CHLORIDE) 20 Meq Tab.er.prt, 20 MEQ PO DAILY24, # 30 TAB 1 Refill Prov:JAYLEN WILLOUGHBY MD 05/15/18 Levetiracetam (KEPPRA) 500 Mg Tablet, 500 MG PO BID for 30 Days, #60 TABLET 5 Refills Prov:JAIME MATA MD 04/01/17 Simvastatin (SIMVASTATIN) 40 Mg Tablet, 1 TAB PO HS, #30 TAB 5 Refills Prov:JAIME MATA MD 03/29/17 Reported Medications Carvedilol 3.125MG (COREG 3.125MG) 3.125 Mg Tablet, 1 TAB PO BID, #180 TAB 1 Refill 05/07/18 Umeclidinium Brm/Vilanterol Tr (Anoro Ellipta 62.5-25 Mcg INH) 1 Each Disk.w.dev , 1 EACH IH DAILY24 05/07/18 Albuterol Sulfate (VENTOLIN HFA) 18 Gm Hfa.aer.ad, 18 GM IH Q6HR for SOB 04/16/18 Montelukast Sodium (MONTELUKAST SODIUM) 10 Mg Tablet, 1 TAB PO HS, #30 TAB 5 Refills 04/16/18 Nifedipine (NIFEDIPINE ER) 60 Mg Tablet.er, 90 MG PO DAILY24 04/16/18 Clopidogrel Bisulfate (PLAVIX) 75 Mg Tablet, 1 TAB PO DAILY, #90 TAB 1 Refill 04/16/18 Omeprazole (OMEPRAZOLE) 40 Mg Capsule.dr, 40 MG PO DAILY24, #1 04/16/18 Trazodone Hcl (TRAZODONE HCL) 50 Mg Tablet, 1.5 TAB PO HS, #30 TAB 1 Refill 03/29/17 Sertraline Hcl (ZOLOFT) 100 Mg Tablet, 1 TAB PO DAILY, #30 TAB 5 Refills 03/29/17 Past Medical History Medical History: COPD Surgical History: cholecystectomy, hysterectomy Family History Significant Family History: no pertinent family hx Social History Drug Use: none Review of Systems Respiratory: shortness of breath Physical Exam General Appearance: Other (intubated/sedated) HEENT: PERRL/EOMI Respiratory: chest non-tender, decreased breath sounds (b/lteral, mod), wheezing Gastrointestinal: Normal Bowel Sounds Neurologic/Psychiatric: Other (unable to test due to sedation) Results/Orders Results/Orders Laboratory Tests Test 01/25/19 01:10 01/25/19 01:15 01/25/19 01:31 01/25/19 02:12 Blood Gas Sample Site LEFT RADIAL ARTERY Blood Gas pH 7.188 (7.350-7.450) Blood Gas PCO2 46.6 mmHg (35.0-45.0) Blood Gas PO2 179.8 mmHg (75.0-100.0) Blood Gas HCO3 17.3 mmol/L (22.0-26.0) Blood Gas Base Excess -10.7 mmol/L (-2.0-2.0) Jose Test POSITIVE Arterial Blood Oxygen Saturation 98.5 % (95-) Deoxyhemoglobin 1.4 % (0.2-0.6) Carboxyhemoglobin 5.0 % (0.5-1.5) Methemoglobin 0.4 % (0.2-0.6) Total Hemoglobin 13.3 % (13.5-17.5) Total Oxygen Concentration 17.8 % (13.5-17.5) Lactic Acid (Blood Gas) 3.7 MMOL/L (0.5-1.0) Blood Gas Temperature 37.0 Oxygen Delivery Method (LAB) VENT Blood Gas Vent Mode SIMV Blood Gas Vent Rate 15 FiO2 0.75 % (20-101) Blood Gas Tidal Volume 450 ML Blood Gas PEEP 5.0 CMH2O Blood Gas Pressure Support 10 CMH2O Bicarbonate 18.7 mmol/L (23-27) Sodium Level 142 mmol/L (132-145) Potassium Level 3.6 mmol/L (3.6-5.2) Chloride Level 105.0 mmol/L (96-109) Carbon Dioxide Level 21.1 mmol/L (20.0-32) Anion Gap 19.5 Blood Urea Nitrogen 19 mg/dL (7-18) Creatinine 1.41 mg/dL (0.59-1.40) Estimated GFR () 45.0 (>/=60) BUN/Creatinine Ratio 13.0 Glucose Level 245 mg/dL (70-110) Calcium Level 9.4 mg/dL (8.4-10.5) Total Bilirubin 0.2 mg/dL (0.2-1.0) Aspartate Amino Transf (AST/SGOT) 15 U/L (0-35) Alanine Aminotransferase (ALT/SGPT) 10 U/L (12-78) Alkaline Phosphatase 158 U/L (50-136) Total Creatine Kinase 59 U/L (26-192) Troponin I 0.76 ng/mL (0.00-0.05) Total Protein 7.3 g/dL (6.4-8.2) Albumin 3.1 g/dL (3.4-5.0) Globulin 4.2 White Blood Count 9.0 10^3/uL (4.5-11.0) Red Blood Count 4.17 10^6/uL (4.00-5.20) Hemoglobin 12.4 g/dL (12.0-15.0) Hematocrit 37.6 % (36.0-46.0) Mean Corpuscular Volume 90.2 fL (78-100) Mean Corpuscular Hemoglobin 29.7 pg (26-34) Mean Corpuscular Hemoglobin Concent 33.0 g/dL (33-37) Red Cell Distribution Width 14.0 % (11.5-14.5) Platelet Count 303 10^3/uL (150-400) Mean Platelet Volume 10.9 fL (7.8-11.0) Neutrophils (%) (Auto) 46.5 % (41.0-85.0) Lymphocytes (%) (Auto) 38.2 % (24.0-44.0) Monocytes (%) (Auto) 10.0 % (5.0-12.0) Neutrophils # (Auto) 4.2 10^3/uL (1.8-7.7) Lymphocytes # (Auto) 3.4 10^3/uL (1.0-4.8) Monocytes # (Auto) 0.9 10^3/uL (0.3-0.8) Absolute Immature Granulocyte (auto 0.06 10^3 u/L (0-2) Eosinophils % 4.0 % (0.0-5.0) Basophils % 0.6 % (0.0-0.2) Basophils # 0.1 10^3/uL (0.0-0.1) Eosinophil Count 0.4 10^3/uL (0.0-0.2) Percent Immature Gran (Cell Imm) 0.70 % (0.00-0.50) Urine Collection Type CCMS Urine Color YELLOW (YELLOW) Urine Appearance CLOUDY (CLEAR) Urine Bilirubin NEGATIVE MG/DL (NEGATIVE) Urine Ketones NEGATIVE (NEGATIVE) Urine Specific [place] 1.025 (1.005-1.035) Urine pH 5 (5.0-6.0) Urine Protein 500 mg/dL (NEGATIVE) Urine Urobilinogen NORMAL (NEGATIVE) Urine Nitrate NEGATIVE (NEGATIVE) Urine Leukocyte Esterase NEGATIVE (NEGATIVE) Urine Blood 10 TR (NEGATIVE) Urine RBC NONE SEEN RBC/HPF (NONE Urine WBC 5-10 WBC/HPF (0-2) Urine Squamous Epithelial Cells MODERATE #/HPF (FEW) Urine Amorphous Sediment LARGE (NONE SEEN) Urine Bacteria FEW (NONE SEEN) Urine Other MUCUS 1+ #/HPF Urine Glucose NORMAL (NEGATIVE) Administered Medications Medications (Trade) Dose Ordered Sig/Jacques Route PRN Reason Start Time Stop Time Status Last Admin Dose Admin Sodium Chloride 1,000 ml @ 0 mls/hr Q0M STAT IV 01/25/19 01:31 01/25/19 01:34 DC 01/25/19 01:48 Albuterol/ Ipratropium (Duoneb 0.5 Mg-3 Mg/3 ml Soln) 3 ml STAT STAT IH 01/25/19 01:58 01/25/19 02:00 DC 01/25/19 02:07 Albuterol Sulfate (Ventolin) 2.5 mg STAT STAT IH 01/25/19 01:58 01/25/19 02:00 DC 01/25/19 02:07 Vancomycin HCl 900 mg/Sodium Chloride 100 ml @ 100 mls/hr Q8H IV 01/25/19 02:30 02/24/19 02:29 01/25/19 03:09 Piperacillin Sod/ Tazobactam Sod 3.375 gm/Sodium Chloride 100 ml @ 100 mls/hr Q6H IV 01/25/19 02:30 02/24/19 02:29 01/25/19 03:09 EKG/XRAY/CT/US XRAY: chest XRAY Comments: RLL infiltrate Departure Time of Disposition: 02:55 Disposition: 09 ADMITTED INPATIENT Impression: Primary Impression: Pneumonia of right lower lobe due to infectious organism Additional Impressions: Respiratory failure with hypoxia COPD with exacerbation Elevated troponin Condition: Critical Referrals: PCP,UNKNOWN (PCP) PRIMARY CARE PROVIDER Duration or Time Spent with Pa: 90 Critical Care Note Total Time (mins): 35 Comments For monitoring pt's respiratory status on vent, reviewing and ordering tests, re -evaluating pt after lab results, discussing plan with admitting physician Problem Qualifiers Additional Impressions: Respiratory failure with hypoxia Chronicity: acute Qualified Codes: J96.01 - Acute respiratory failure with hypoxia ARNOLD COHEN DO Jan 25, 2019 01:52
[2019-01-25] MEDS ORDERED: VENTOLIN IH STA (01:58)
[2019-01-25] MEDS ORDERED: DUONEB 0.5 MG-3 MG/3 ML SOLN IH STA (01:58)
[2019-01-25 02:04] LABS: CALCIUM 9.4 mg/dL (8.4-10.5); CARBON DIOXIDE 21.1 mmol/L (20.0-32)
[2019-01-25 02:16] LABS: BILIRUBIN,URINE NEGATIVE (NEGATIVE); UROBILINOGEN,URINE NORMAL (NEGATIVE)
[2019-01-25 02:17] LABS: APPEARANCE,URINE CLOUDY (CLEAR); UA COLOR YELLOW (YELLOW)
--- NOTE | 2019-01-25 02:29 | DIREP ---
PROCEDURE:CHEST 1 VIEW COMPARISON:[facility], CR, XRAY CHEST SINGLE VW, 08/11/2018, 10:17 PM. [facility], CR, XRAY CHEST SINGLE VW, 08/11/2018, 09:36 PM. INDICATIONS:resp failure FINDINGS: LUNGS/PLEURA: Endotracheal tube with the tip 4 cm above the josue. Stable COPD changes. New right lower lobe consolidation and infiltrate. Questionable left basilar retrocardiac infiltrate. No clinically significant pneumothorax. CARDIAC:Normal size cardiac silhouette and normal vascularity. Stable calcified plaque at the aortic knob. MEDIASTINUM: Normal. BONES: Stable osteopenia and scattered degenerative changes. Scoliosis. No acute abnormality. OTHER: EKG leads overlying the chest. CONCLUSION:New right lower lung field consolidation and infiltrate. Questionable left basilar retrocardiac infiltrate. Dictated by: Edmond Evans MD on 01/25/2019 at 02:26 AM
[2019-01-25] MEDS ORDERED: VANCOMYCIN IV SCH (02:30)
[2019-01-25] MEDS ORDERED: NS IV SCH (02:30)
[2019-01-25 02:45] LABS: ABG PCO2 46.6 mmHg (35.0-45.0); ABG PH 7.188 (7.350-7.450); BE(B) -10.7 mmol/L (-2.0-2.0); HCO3act 17.3 mmol/L (22.0-26.0); pO2 179.8 mmHg (75.0-100.0)
[2019-01-25] MEDS ORDERED: DIPRIVAN IV PRN (03:00)
[2019-01-25] MEDS: ZOSYN 3.375 GRAM VIAL 3.375 GM in NS 100ML 100 ML IV SCH ×4 (03:09→21:04)
[2019-01-25] MEDS ORDERED: VANCOMYCIN HCL 1 GM ONE (03:11)
[2019-01-25] MEDS ORDERED: NS 250ML 250 ML IV ONE (03:11)
[2019-01-25] MEDS ORDERED: NS 1000ML 2,000 ML ONE (03:11)
[2019-01-25] MEDS ORDERED: NS 100ML 100 ML IV ONE ×2 (03:11→07:31)
[2019-01-25] MEDS ORDERED: ZOSYN 3.375 GRAM VIAL IV ONE ×2 (03:12→07:31)
[2019-01-25] MEDS: NS 1000ML 1,000 ML IV SCH ×3 (03:22→19:30)
--- NOTE | 2019-01-25 03:40 | NUR ---
Transfer Pt to ICU Rm 5 via stretcher accompanied by this nurse and Evita Moran RN. Pt remains intubated, BVM performed by Evita forte, portable cardiac care nurse applied for transport. Pt tolerated transport well. Upon arrival to room, pt transferred to bed laterally with staff x5. Arsen, RT at bedside to reconnect vent. IV sites x2 remain patent. Howe catheter patent with minimal urine output. Report to TRINITY Felipe and TRINITY Uriostegui. [facility].
--- NOTE | 2019-01-25 03:50 | NUR ---
Patient arrived to unit Patient arrived to unit via stretcher from ER accompanied by Aminah Mchugh RN. Received report assumed car of patient. Patient being bagged upon arrival by Evita Gaviria RN and put on ventilator by Arsen. RT. Patient on Propofol 40mcg/kg/min. Two IV sites noted 18G to the right forearm and 20 G to the Left hand. Howe catheter present on arrival to unit. Urine is dark yellow. Patient alert to touch. Patient unable to answer any questions at this time.Bed in low locked form. No s/s of distress noted. will continue to monitor.
[2019-01-25 04:53] LABS: ABG PH 7.349 (7.350-7.450); BE(B) -7.4 mmol/L (-2.0-2.0); HCO3act 17.2 mmol/L (22.0-26.0); pO2 103.3 mmHg (75.0-100.0)
[2019-01-25] MEDS: DUONEB 0.5 MG-3 MG/3 ML SOLN IH SCH ×5 (05:15→20:54)
--- NOTE | 2019-01-25 05:25 | NUR ---
Ng tube placement Ng tube placed to right nares. Chest x-ray ordered to verify placement.
--- NOTE | 2019-01-25 05:45 | DIREP ---
PROCEDURE:CHEST 1 VIEW COMPARISON:[facility], CR, XRAY CHEST SINGLE VW, 01/25/2019, 01:36 AM. [facility], CR, XRAY CHEST SINGLE VW, 08/11/2018, 10:17 PM. INDICATIONS:pnemonia/intubated/ng tube placement FINDINGS: LUNGS/PLEURA: Stable endotracheal tube. Stable COPD changes. Improved right lower lobe consolidation and infiltrate. Stable questionable left basilar retrocardiac infiltrate. No clinically significant pneumothorax. CARDIAC:Normal size cardiac silhouette and normal vascularity. Stable calcified plaque at the aortic knob. MEDIASTINUM: Normal. BONES: Stable osteopenia and scattered degenerative changes. Scoliosis. No acute abnormality. OTHER: EKG leads overlying the chest. CONCLUSION: Improved right basilar infiltrate. Other stable findings as above. Dictated by: Edmond Evans MD on 01/25/2019 at 05:44 AM
--- NOTE | 2019-01-25 06:12 | NUR ---
Urine output notified of urine output of 50 cc since 349, He stated "I can live with that lets just watch it for now" Will pass on in report.
--- NOTE | 2019-01-25 06:40 | NUR ---
Report received from TRINITY Kruger and assumed care.
[2019-01-25] MEDS ORDERED: WATER ONE (06:54)
--- NOTE | 2019-01-25 06:58 | NUR ---
Assessment completed as charted. Patient lying on her back in bed, intubated and sedated. 7.5 ETT, 24 at the lip, middle, with the following vent settings: tidal volume at 450, FiO2 at 45%, rate of 15, PEEP of 5, pressure support of 10. Two IV sites noted G 18 R FA with Propofol infusing at 40 mcg/kg/min, G 20 L hand with NS infusing at 125 ml/hr. Howe catheter present on arrival to unit. Urine is dark yellow, cloudy, with only 6 ml urine output Patient alert to touch. Patient unable to answer any questions at this time.Bed in low locked form. No s/s of distress noted. will continue to monitor.
--- NOTE | 2019-01-25 07:00 | NUR ---
Reposition the patient to the left.
--- NOTE | 2019-01-25 07:07 | NUR ---
Blood glucose resulted to 137, continue to monitor.
--- NOTE | 2019-01-25 07:30 | NUR ---
MOBILITY Patient is intubated and sedated, excluded at this time.
[2019-01-25] MEDS ORDERED: PROTONIX IV IV ONE (07:35)
[2019-01-25] MEDS ORDERED: LOVENOX SQ ONE (07:35)
--- NOTE | 2019-01-25 07:55 | NUR ---
DC NG and inserted OG, clamped. Addendum: 01/25/19 at 1116 by Linda Laguna RN - RADIOTELEGRAPHIST Placement verified by auscultation and aspiration. CXR order in place for OG placement verification.
--- NOTE | 2019-01-25 08:03 | NUR ---
Pietro (radiology) at bedside. CXR for OG placement verification.
--- NOTE | 2019-01-25 08:10 | NUR ---
RT Emerita at bedside to draw blood for ABG.
--- NOTE | 2019-01-25 08:20 | DIREP ---
PROCEDURE:CHEST 1 VIEW COMPARISON:[facility], CR, XRAY CHEST SINGLE VW, 01/25/2019, 05:02 AM. [facility], CR, XRAY CHEST SINGLE VW, 01/25/2019, 01:36 AM. [facility], CR, XRAY CHEST SINGLE VW, 08/11/2018, 10:17 PM. INDICATIONS:NG TUBE PLACEMENT FINDINGS: LUNGS/PLEURA:Stable ET tube. COPD. Further improvement in bilateral lower lobe infiltrates. No large effusions. VASCULATURE:Normal. Unremarkable pulmonary vasculature. CARDIAC:Normal. No cardiac silhouette abnormality or cardiomegaly. MEDIASTINUM:Atherosclerotic aorta with no visible aneurysm. BONES:Normal. No fracture or visible bony lesion. OTHER:Nasogastric tube present extending into the body of the stomach with distal tip not visible on the film. CONCLUSION:Post placement of NG tube which extends into the body the stomach. Distal tip not visible on the film. Improving bilateral lower lobe infiltrates. Dictated by: Angel Griffith M.D. on 01/25/2019 at 08:18 AM
--- NOTE | 2019-01-25 08:30 | NUR ---
OG placement verified by CXR, OG connected to LIWS.
[2019-01-25 08:33] LABS: ABG PCO2 35.6 mmHg (35.0-45.0); ABG PH 7.331 (7.350-7.450); BE(B) -6.8 mmol/L (-2.0-2.0); HCO3act 18.4 mmol/L (22.0-26.0); pO2 107.4 mmHg (75.0-100.0)
--- NOTE | 2019-01-25 08:35 | NUR ---
RT Emerita called the unit for ABG result.
--- NOTE | 2019-01-25 08:57 | NUR ---
Notified Dr. Villegas of ABG result and a total urine output of 14 ml from 6 to 8 am. New order received. Bolus 500 ml of NS. RBAV.
[2019-01-25] MEDS: PROTONIX IV IV SCH (09:00)
[2019-01-25] MEDS: LOVENOX SQ SCH (09:00)
--- NOTE | 2019-01-25 09:00 | NUR ---
Reposition the patient, flat in bed.
--- NOTE | 2019-01-25 09:00 | NUR ---
Reposition the patient flat.
--- NOTE | 2019-01-25 09:00 | NUR ---
Emerita, RT decrease the FiO2 to 35%.
[2019-01-25] MEDS ORDERED: NS 500ML 500 ML IV ONE ×2 (09:05→09:30)
--- NOTE | 2019-01-25 09:13 | PCM.HP ---
HISTORY & PHYSICAL HISTORY & PHYSICAL DATE OF ADMISSION: CHIEF COMPLAINT: 68 yo female presents with severe SOB worsening over several hours. Found on floor by EMS and unresponsive. Intubated in field. On arrival to , was found to have L basilar infiltrate, Resp Acidosis, Metabolic Acidosis, and Hypoxemic Respiratory Failure and ARF-Likely secondary to ATN. Admit to MICU for Vent management, IV abx for CAP, IV Corticosteroids for COPD Exacerbation. No family or contacts at bedside and no record of any NOK at this time. 65 minutes spent in acute critical care. H&P #[id number] HISTORY OF PRESENT ILLNESS: ALLERGIES: CURRENT MEDICATIONS: PAST MEDICAL HISTORY: SOCIAL HISTORY: FAMILY HISTORY: REVIEW OF SYSTEMS: PHYSICAL EXAMINATION: GENERAL: VITAL SIGNS: HEENT: NECK: LUNGS: HEART: ABDOMEN: EXTREMITIES: NEUROLOGIC: LABORATORY DATA: IMPRESSION: CARE PLAN: EMMA GR MD Jan 25, 2019 09:13
--- NOTE | 2019-01-25 09:15 | NUR ---
TUBE TAMER CHANGED TO [place]. 24CM AT LIP , 7.5ETT. CONDENSATE FROM TUBING DRAINED. ETCO2 LINE REPLACED BECAUSE OF MOISTURE.
--- NOTE | 2019-01-25 09:16 | NUR ---
Emerita, RT decrease the FiO2 to 30%, patient's SPO2 at 97%.
[2019-01-25] MEDS: SOLU-MEDROL IV SCH ×3 (09:30→18:00)
[2019-01-25] MEDS: VANCOMYCIN HCL IV SCH ×2 (09:53→18:00)
[2019-01-25] MEDS: NS IV SCH ×2 (09:53→18:00)
[2019-01-25] MEDS ORDERED: DEXTROSE 50%-WATER SYRINGE IV PRN (10:00)
[2019-01-25] MEDS ORDERED: LANTUS SQ SCH (10:00)
--- NOTE | 2019-01-25 10:00 | NUR ---
RT Emerita at bedside for oral care.
--- NOTE | 2019-01-25 10:00 | NUR ---
Called [facility] pharmacy for patient's home medication list. Line is busy will try again later.
--- NOTE | 2019-01-25 10:15 | NUR ---
Meatal care, catheter care, skin care done.
[2019-01-25] MEDS ORDERED: LASIX ONE (10:30)
--- NOTE | 2019-01-25 10:30 | NUR ---
Dr. Villegas at bedside. Assess the patient. Notified that hourly urine output as follows: 0700 - 14 ml, 0800 - 14 ml, 0900 - 6 ml. 500 ml NS BOLUS given, order to give 20 Lasix IV OT. RBAV. Notified that FiO2 down to 30% from 45%. Order received to start weaning trail this afternoon. RBAV. Emerita RT notified.
--- NOTE | 2019-01-25 10:40 | NUR ---
Called [facility] pharmacy again for patient's home medication list. Requested to be fax in ICU.
[2019-01-25] MEDS ORDERED: LASIX IV ONE (11:00)
--- NOTE | 2019-01-25 11:00 | NUR ---
Reposition the patient to the right.
[2019-01-25] MEDS: HUMULIN R SQ SCH ×3 (11:30→21:00)
[2019-01-25] MEDS: KLOR-CON 10 PO SCH (12:00)
[2019-01-25] MEDS: PROCARDIA PO SCH ×2 (12:00→21:05)
--- NOTE | 2019-01-25 12:00 | NUR ---
Dr. Villegas in the unit, home medication list reconciled. New order received. Hydralazine 10 MG IV Q4HR PRN.
[2019-01-25] MEDS ORDERED: PROTONIX PO SCH (12:28)
[2019-01-25] MEDS ORDERED: APRESOLINE ONE ×2 (12:29→12:31)
[2019-01-25] MEDS: KEPPRA PO SCH ×2 (12:31→21:05)
--- NOTE | 2019-01-25 12:35 | NUR ---
RT Emerita at bedside to start with the weaning trial. 1237-Propofol decrease to 30 mcg/kg/min. 1240-Rate decrease to 12 from 15 1300-Rate decrease to 10 from 12 1305-Propofol decrease to 20 mcg/kg/min. 1313-LAB at bedside to draw blood. 1320-on CPAP settings 1330-Propofol decrease to 10 mcg/kg/min. 1345-Patient completely off the Propofol 1355-Patient extubated 1340-OG DC.
[2019-01-25] MEDS: APRESOLINE IV PRN ×2 (12:40→23:13)
[2019-01-25] MEDS: ASPIRIN PO SCH (13:00)
[2019-01-25 13:27] LABS: BASOPHIL % 0.3 % (0.0-0.2); EOSINOPHIL # 0.1 10^3/uL (0.0-0.2); EOSINOPHIL % 0.6 % (0.0-5.0); HEMOGLOBIN 11.8 g/dL (12.0-15.0); LYMPHOCYTES # 0.7 10^3/uL (1.0-4.8); LYMPHOCYTES % 6.2 % (24.0-44.0); MEAN CELL HGB 29.6 pg (26-34); MEAN CELL HGB CONCENTRATION 33.5 g/dL (33-37); MEAN CORP VOLUME 88.4 fL (78-100); MEAN PLATELET VOLUME 11.1 fL (7.8-11.0); MONOCYTES # 0.2 10^3/uL (0.3-0.8); MONOCYTES % 1.7 % (5.0-12.0); NEUTROPHIL # 9.7 10^3/uL (1.8-7.7); NEUTROPHILS % 90.9 % (41.0-85.0); RED CELL DISTRIBUTION WIDTH 14.2 % (11.5-14.5); WHITE BLOOD CELL 10.6 10^3/uL (4.5-11.0)
--- NOTE | 2019-01-25 13:27 | HPH ---
ADMIT DATE: 01/25/2019 CHIEF COMPLAINT: Shortness of breath and respiratory failure. HISTORY OF PRESENT ILLNESS: This is a 68-year-old female with multiple medical problems including a seizure history, COPD, hypertension, major depressive disorder, who lives alone and called 911 late yesterday evening for shortness of breath. Apparently, EMS arrived and the patient was on the floor and unresponsive. She had a short course of BiPAP trial, but failed this and secondary to her respiratory failure, she was intubated by EMS and placed on sedation. Upon arrival to the Emergency Room Department, she was stable, but requiring mechanical ventilation. Heart rate was significantly elevated on presentation, but this slowly improved within one hour after being intubated. The patient lives alone and neighbors apparently can offer no information. There were no signs of family members or power of medical record administrator in the house or phone numbers associated with any such person. The patient is sedated on the ventilator and unable to give us any of this information. We did find that most of her medications were filled at [facility], but they have been filled by multiple providers in the year 2018 and we are on a Saturday morning, so it is difficult to know which of these providers is actually seeing her consistently at this time. I did speak to Angel Vance, family nurse practitioner, as he had given her medication in November, but he does not recall seeing her. During my interview and examination of the patient, she is stable and satting at 94% on an FiO2 of 45%. Her PEEP is 5. She does wake up to manual stimuli and will follow some commands. Otherwise, she is mildly sedated on propofol. PAST MEDICAL HISTORY: 1. COPD. 2. Hypertension. 3. Diastolic congestive heart failure. 4. Chronic allergic rhinitis. 5. Seizure disorder. 6. Peripheral arterial disease. 7. GERD. 8. Major depressive disorder. MEDICATIONS: See admit medication reconciliation form. ALLERGIES: CODEINE. PAST SURGICAL HISTORY: 1. Cholecystectomy. 2. Total abdominal hysterectomy -- unknown ovarian status. SOCIAL HISTORY: Previous documentation suggested the patient is a nonsmoker and a nondrinker. She lives alone in [place], [place]. FAMILY HISTORY: Unknown. REVIEW OF SYSTEMS: The patient has not had fever, but other than this, she is not able to be awake and off the ventilator to answer questions regarding her review of systems. OBJECTIVE: VITAL SIGNS: Temperature 97.4, pulse 77, respirations 18, blood pressure 148/85, pulse oximeter 97% on ventilator 100% FIO2, now 94% on FiO2 of 45%. GENERAL: This is an ill-appearing female, in no acute distress now that on mechanical respirations. She is sedated on propofol. HEENT: Atraumatic, normocephalic. Sclerae are clear and anicteric. Oral mucosa is moist. NECK: Soft, supple normal range of motion, no bruits, goiter, mass or adenopathy. There is no JVD. LUNGS: Decreased breath sounds bilaterally with mild bilateral crackles at bases. HEART: Regular rate and rhythm without murmurs, S3 or S4. No murmurs heard. ABDOMEN: Soft. Nondistended. Positive bowel sounds. No masses felt. EXTREMITIES: Warm and well perfused without evidence of edema, cyanosis, or clubbing. NEUROLOGIC: Cranial nerves can be evaluated, appeared to be intact and symmetric. Patellar reflexes 1+ bilaterally. SKIN: Intact. LABORATORY DATA: WBC 9, hemoglobin 12.4, hematocrit 37.6, and platelets 303. ABG on arrival, pH 7.188, pCO2 of 46.6, pO2 of 179, bicarbonate 17.3, and lactate 3.7. Sodium 142, potassium 3.6, BUN 19, creatinine 1.41, glucose 245. Calcium 9.4, total bilirubin 0.2, AST 15, ALT 10, alkaline phosphatase 158. Total CK 59, troponin I 0.76, total protein 7.3. EKG -- pending. Urinalysis -- 5-10 wbc's, moderate squamous epithelial cells, few bacteria. Chest x-ray on arrival -- "new right lower lung field consolidation and infiltrate, questionable left basilar retrocardiac infiltrate." ASSESSMENT: 1. Acute hypoxemic respiratory failure. 2. Severe respiratory acidosis. 3. Severe metabolic acidosis. 4. Community-acquired pneumonia. 5. Acute renal failure. 6. Hyperglycemia -- likely secondary to diabetes mellitus. 7. Elevated troponin. 8. Hypertension. PLAN: 1. The patient is admitted to [facility] Medical Intensive Care Unit. She is on the ventilator with settings of SIMV, FiO2 of 45%, PEEP of 5. We will continue to wean ventilator as tolerated. Check ABG and chest x-ray daily, breathing treatments t.i.d. and as needed. 2. Start IV antibiotics for the treatment of community-acquired pneumonia. 3. We will provide IV corticosteroids for respiratory acidosis and COPD exacerbation. 4. We will give gentle IV fluids for the patient's acute renal failure, although need to be cautious for volume overload. 5. Elevated troponin, likely secondary to renal failure and respiratory failure. We will check echocardiogram in the morning as well as recheck BNP and troponin this afternoon. 6. Continue sedation with propofol and hopefully can wean off the ventilator in the next 24 hours. 7. Omeprazole for stress ulcer prophylaxis, SCDs for DVT prophylaxis. 8. Resume the patient's home blood pressure medication and antiepileptic drugs. 9. We are at a little bit of a disadvantage over the patient's current condition as we do not know medical history and have no family or next of kin to talk to. I will try to review through her previous hospital charts to find any information or possible contacts. 10. Otherwise, we will follow very closely and make changes as clinically indicated. TIME SPENT: Approximately 70 minutes spent today in acute critical care management, ventilator management, and overall plan of care. Ariel Villegas MD DR: TRENA/sania JOB# [id number]
--- NOTE | 2019-01-25 13:30 | NUR ---
Lab called the unit. Troponin resulted to 1.27 1335-notified Dr. Villegas and order for EKG.
--- NOTE | 2019-01-25 13:34 | NUR ---
Emerita RT notified Dr. Villegas of the parameters. Patient is ready to be extubated.
[2019-01-25 14:04] LABS: ANISOCYTOSIS 1+ (NEGATIVE); BAND NEUTROPHILS 1 % (2-6); LYMPHOCYTE 7 % (25-36); SEGMENTED NEUTROPHILS 92 % (31-76)
--- NOTE | 2019-01-25 15:05 | NUR ---
New order received from Dr. Villegas. Place patient on clear liquid for the rest of the day and advance diet as tolerated. Cardiology consult tomorrow. Repeat troponin at 1900. Notified lab of the new order.
--- NOTE | 2019-01-25 15:10 | NUR ---
Dr. Villegas at bedside. Assess the patient and discuss plan of care. Patient stated that her voice has been garbled since 1978, just one day she woke up like this way, she was seen by a psychiatrist and was diagnosed to have mental trauma in her past. Patient stated she is not allowed to drive because of her seizure. She also mentioned that she have a history of stroke. Patient stated that last week she started to have shortness of breath, does not use oxygen at home but have breathing treatment. Denies chest pain at this time.
--- NOTE | 2019-01-25 15:25 | NUR ---
Notified [facility] (Jazmine) that patient is in the hospital because she is schedule for an office visit with her PCP tomorrow.
--- NOTE | 2019-01-25 18:28 | NUR ---
Jazmine (from [facility]) at bedside. Brought the patient her eyeglasses and phone video surveillance technician.
--- NOTE | 2019-01-25 18:40 | NUR ---
Report given to incoming shift nurses and relinquished care.
--- NOTE | 2019-01-25 18:40 | NUR ---
REPORT RECEIVED FROM ELOISA PETERSEN. ASSUMED CARE. SEE ASSESSMENT. RECEIVED PATIENT WITH ONGOING 3RD VANCOMYCIN DOSE. WEARING O2 AT 2L/MIN VIA NASAL CANNULA. SCDs TO BLE FUNCTIONING PROPERLY. CALL LIGHT & TABLE IN REACH. TIDIED THE ROOM.
--- NOTE | 2019-01-25 18:53 | NUR ---
Lab at bedside to draw the troponin.
--- NOTE | 2019-01-25 20:31 | NUR ---
TELEPHONE CALL TO DR GR: ORDER CLARIFICATION CLARIFIED LANTUS ORDER AND SPUTUM CULTURE VIA BRONCHIAL WASHING. RECEIVED ORDER TO HOLD LANTUS. USE EXPECTORATED SPUTUM FOR THE CULTURE. RBTO.
--- NOTE | 2019-01-25 20:31 | NUR ---
RECEIVED ORDER FROM DR GR USE MODERATE SLIDING SCALE TO COVER ACCUCHECKS. RBTO
[2019-01-25] MEDS ORDERED: ZOCOR PO SCH (21:00)
[2019-01-25] MEDS ORDERED: COREG PO SCH (21:00)
--- NOTE | 2019-01-25 22:32 | NUR ---
EARLY AMBULATION ASSESSMENT: LEVEL B PATIENT WAS ABLE TO TRANSFER FROM BED TO CHAIR AND BACK WITHOUT DIFFICULTY. STANDBY ASSIST. ABLE TO DO ADLs INDEPENDENTLY.
--- NOTE | 2019-01-25 23:10 | NUR ---
TELEPHONE CALL TO DR GR RECEIVED ORDER FOR IBUPROFEN 800 MG PO Q6 PRN. RBTO
[2019-01-25] MEDS ORDERED: MOTRIN PO PRN (23:30)
[2019-01-26] VITALS (62 sets, daily range): BP systolic 110–183; BP diastolic 47–96
[2019-01-26] MEDS: NS 1000ML 1,000 ML IV SCH ×2 (00:18→16:27)
[2019-01-26] MEDS ORDERED: TYLENOL PO PRN (00:30)
--- NOTE | 2019-01-26 01:17 | PCM.EKG ---
[facility] Test Date: 2019-01-26 Test Time: 01:13:34 Pat Name: HERBER ZARATE Department: Room: ICU5 A Gender: F Hand Tool Lapper: RUTH : 1950 Requested By: EMMA GR Order Number: [id number] Reading MD: Richy Good Measurements Intervals [place] Rate: 113 P: 57 NE: 112 QRS: 83 QRSD: 80 T: 237 QT: 322 QTc: 441 Interpretive Statements Sinus tachycardia with occasional premature ventricular complexes Marked ST abnormality, possible inferolateral subendocardial injury Abnormal ECG Compared to ECG 08/11/2018 21:38:20 Sinus rhythm no longer present Possible ischemia no longer present Prolonged QT interval no longer present ST (T wave) deviation still present Electronically Signed On 01-27-2019 10:03:31 AQUATICS DIRECTOR by Richy Good Please click the below link to view image of tracing.
--- NOTE | 2019-01-26 01:19 | PCM.EKG ---
[facility] Test Date: 2019-01-25 Test Time: 16:03:26 Pat Name: HERBER ZARATE Department: Room: ICU5 Gender: F Punch Molder: TIANNA : 1950 Requested By: ARNOLD COHEN Order Number: [id number] Reading MD: Richy Good Measurements Intervals [place] Rate: 79 P: 73 ND: 148 QRS: 69 QRSD: 90 T: 252 QT: 452 QTc: 518 Interpretive Statements Sinus rhythm with occasional premature ventricular complexes ST & Marked T wave abnormality, consider anterolateral ischemia Prolonged QT Abnormal ECG Compared to ECG 08/11/2018 21:38:20 T-wave abnormality now present ST (T wave) deviation no longer present Possible ischemia still present Electronically Signed On 01-26-2019 7:59:56 HOTSHOT SUPERINTENDENT by Richy Good Please click the below link to view image of tracing.
[2019-01-26] MEDS ORDERED: ATIVAN ONE (01:43)
[2019-01-26] MEDS ORDERED: ATIVAN IV STA (01:45)
--- NOTE | 2019-01-26 01:45 | NUR ---
ANXIETY & TACHYCARDIA TELEPHONE CALL TO DR GR. RELAYED THAT PT IS ANXIOUS, HR REMAINS AT 120-128 BPM. NO CHEST PAIN/ SHORTNESS OF BREATH. RECEIVED ORDER FOR ATIVAN 1 MG IV STAT OT. RBTO
[2019-01-26] MEDS: DUONEB 0.5 MG-3 MG/3 ML SOLN IH SCH ×6 (01:52→20:14)
[2019-01-26] MEDS ORDERED: LOPRESSER ONE (01:58)
--- NOTE | 2019-01-26 01:59 | PCM.EKG ---
[facility] Test Date: 2019-01-25 Test Time: 02:19:12 Pat Name: HERBER ZARATE Department: Room: ICU5 A Gender: F Track Inspecting Supervisor: RUTH : 1950 Requested By: EMMA GR Order Number: [id number] Reading MD: Richy Good Measurements Intervals [place] Rate: 71 P: 57 [place]: 156 QRS: 37 QRSD: 90 T: 245 QT: 446 QTc: 484 Interpretive Statements Normal sinus rhythm ST & Marked T wave abnormality, consider anterolateral ischemia Prolonged QT Abnormal ECG Compared to ECG 08/11/2018 21:38:20 T-wave abnormality now present Ventricular premature complex(es) no longer present ST (T wave) deviation no longer present Possible ischemia still present Electronically Signed On 01-27-2019 10:02:53 SUPERVISOR [employer] E[employer]RODES by Richy Good Please click the below link to view image of tracing.
[2019-01-26] MEDS: VANCOMYCIN HCL IV SCH (02:00)
[2019-01-26] MEDS ORDERED: LOPRESSER IVP STA (02:00)
[2019-01-26] MEDS: NS IV SCH (02:00)
--- NOTE | 2019-01-26 02:00 | NUR ---
TELEPHONE CALL FROM DR GR RECEIVED ORDER FOR METOPROLOL 5 MG IV PUSH OT OVER 5 MINUTES. 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 RBTO
--- NOTE | 2019-01-26 02:02 | NUR ---
VANCOMYCIN TROUGH LEVEL RELAYED TO DR GR.. RECEIVED ORDER TO HOLD VANCOMYCIN DOSE FOR 0200 DOSE. RBTO
[2019-01-26] MEDS: ZOSYN 3.375 GRAM VIAL 3.375 GM in NS 100ML 100 ML IV SCH ×4 (02:30→20:53)
[2019-01-26] MEDS ORDERED: MORPHINE SULFATE ONE (02:48)
[2019-01-26] MEDS ORDERED: DURAMORPH IV PRN (03:00)
[2019-01-26 05:05] LABS: ABG PCO2 26.3 mmHg (35.0-45.0); ABG PH 7.386 (7.350-7.450); BE(B) -8.2 mmol/L (-2.0-2.0); HCO3act 15.4 mmol/L (22.0-26.0)
[2019-01-26 05:20] LABS: HEMOGLOBIN 10.3 g/dL (12.0-15.0); LYMPHOCYTES # 0.7 10^3/uL (1.0-4.8); LYMPHOCYTES % 6.2 % (24.0-44.0); MEAN CELL HGB 30.1 pg (26-34); MEAN CELL HGB CONCENTRATION 33.6 g/dL (33-37); MEAN CORP VOLUME 89.8 fL (78-100); MEAN PLATELET VOLUME 11.1 fL (7.8-11.0); MONOCYTES # 0.4 10^3/uL (0.3-0.8); MONOCYTES % 3.8 % (5.0-12.0); NEUTROPHIL # 9.7 10^3/uL (1.8-7.7); NEUTROPHILS % 89.8 % (41.0-85.0); RED CELL DISTRIBUTION WIDTH 14.2 % (11.5-14.5); WHITE BLOOD CELL 10.8 10^3/uL (4.5-11.0)
[2019-01-26 05:49] LABS: CALCIUM 9.2 mg/dL (8.4-10.5); CARBON DIOXIDE 18.9 mmol/L (20.0-32)
[2019-01-26] MEDS: SOLU-MEDROL IV SCH ×4 (05:59→18:07)
[2019-01-26 06:20] LABS: LYMPHOCYTE 14 % (25-36); MONOCYTE 2 % (3-9); SEGMENTED NEUTROPHILS 84 % (31-76)
[2019-01-26] MEDS: HUMULIN R SQ SCH ×4 (07:21→21:14)
--- NOTE | 2019-01-26 07:25 | NUR ---
Dr. Nelly Villegas at bedside. New orders received to continue to hold vancomycin and he will re-evaluate after chest xray and to decrease IV fluids to 75ml/hr. RBVO.
--- NOTE | 2019-01-26 07:52 | PRM.PN ---
Subjective Subjective Date: Jan 26, 2019 Time: 07:50 Subjective Doing better overall. Extubated yesterday afternoon. Breathing well on nasal canula 2 to 3 liters. Seems to be swallowing ok. 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 She has been out of bed some. Strength doing ok. No other events. Patient History: Unknown 33 MOTHER 34 FATHER VTE VTE Risk Total Score: >5 VTE Risk Score VTE Risk: Score 0-1 = Low Risk (Aggressive mobilization; early ambulation; no VTE prophylaxis required) Score 2: Moderate Risk (Intermittent/Pneumatic Compression Device OR Lovenox/Heparin/Coumadin) Score 3-4: High Risk (Intermittent/Pneumatic Compression Device AND Lovenox/Heparin/Coumadin) Score > or =5: Highest Risk (Intermittent/Pneumatic Compression Device AND Lovenox/Heparin/Coumadin) Antico:Hep/LMWH/Coum/Xarelto: No Mechanical device ordered: Yes Reasons not ordering prophylax: At risk for falls Review of Systems Constitutional: No: Fever, Chills, Sweats, Weakness, Malaise, Other ENT: Other Respiratory: Cough, Shortness of breath, SOB with excertion; No: Hemoptysis Cardiovascular: No: Chest Pain, Palpitations, Orthopnea, Paroxysmal Noc. Dyspnea, Edema, Lt Headedness, Other Gastrointestinal: No: Nausea, Vomiting, Abdominal Pain, Diarrhea, Constipation , Melena, Hematochezia, Other Genitourinary: No Dysuria, No Frequency, No Incontinence, No Hematuria, No Retention, No Other Neurological: No: Weakness, Numbness, Incoordination, Change in speech, Confusion, Seizures, Other Allergies: Coded Allergies: codeine (Verified Allergy, Unknown, 03/29/17) Scheduled Albuterol Sulfate (Ventolin Hfa), 18 GM IH Q6HR, (Reported) Carvedilol 3.125MG (Coreg 3.125MG), 1 TAB PO BID, (Reported) Clopidogrel Bisulfate (Plavix), 1 TAB PO DAILY, (Reported) Levetiracetam (Keppra), 500 MG PO BID Montelukast Sodium (Montelukast Sodium), 1 TAB PO HS, (Reported) Nifedipine (Nifedipine Er), 90 MG PO DAILY24, (Reported) Omeprazole (Omeprazole), 40 MG PO DAILY24, (Reported) Potassium Chloride (Potassium Chloride), 20 MEQ PO DAILY24 Sertraline Hcl (Zoloft), 1 TAB PO DAILY, (Reported) Simvastatin (Simvastatin), 1 TAB PO HS Trazodone Hcl (Trazodone Hcl), 1.5 TAB PO HS, (Reported) Umeclidinium Brm/Vilanterol Tr (Anoro Ellipta 62.5-25 Mcg INH), 1 EACH IH DAILY24, (Reported) Objective Vitals and I/O Vital Sign - Last 24 Hours 01/25/19 01/25/19 01/25/19 01/25/19 08:00 08:05 08:15 08:30 Temp 36.7 36.7 36.7 98.1 98.1 98.1 Pulse 58 57 62 67 Resp 17 16 B/P (MAP) 134/64 (87) 135/68 (90) 173/92 (119) Pulse Ox 99 99 99 99 FiO2 45 01/25/19 01/25/19 01/25/19 01/25/19 08:45 09:00 09:05 09:05 Temp 36.7 36.8 98.1 98.2 Pulse 56 56 58 55 Resp 15 B/P (MAP) 167/72 (103) 131/68 (89) Pulse Ox 100 99 97 99 01/25/19 01/25/19 01/25/19 01/25/19 09:15 09:30 09:45 10:00 Temp 36.8 36.8 36.8 36.8 98.2 98.2 98.2 98.2 Pulse 57 62 55 57 Resp 15 16 B/P (MAP) 141/70 (93) 136/59 (84) 145/64 (91) 133/67 (89) Pulse Ox 99 98 97 95 01/25/19 01/25/19 01/25/19 01/25/19 10:10 10:15 10:30 10:42 Temp 36.7 36.7 98.1 98.1 Pulse 55 56 58 Resp 15 17 16 B/P (MAP) 152/72 (98) 158/69 (98) 168/76 Pulse Ox 98 96 98 FiO2 30 01/25/19 01/25/19 01/25/19 01/25/19 10:45 11:00 11:15 11:30 Temp 36.7 36.7 36.7 36.8 98.1 98.1 98.1 98.2 Pulse 54 57 60 65 Resp 15 16 15 15 B/P (MAP) 162/64 (96) 168/76 (106) 172/74 (106) 178/79 (112) Pulse Ox 95 97 97 96 01/25/19 01/25/19 01/25/19 01/25/19 11:45 12:00 12:00 12:00 Temp 36.8 36.8 98.2 98.2 Pulse 66 56 66 Resp 16 18 B/P (MAP) 153/85 (107) 166/76 (106) Pulse Ox 96 99 96 O2 Delivery Mechanical Ventilator FiO2 30 01/25/19 01/25/19 01/25/19 01/25/19 12:15 12:30 12:40 12:40 Temp 36.9 36.9 98.4 98.4 Pulse 67 74 72 72 B/P (MAP) 175/79 (111) 174/84 (114) 180/83 Pulse Ox 95 95 94 01/25/19 01/25/19 01/25/19 01/25/19 12:40 12:40 12:45 13:00 Temp 36.9 98.4 Pulse 70 70 74 68 Resp 20 12 24 B/P (MAP) 176/84 (114) Pulse Ox 94 94 95 95 FiO2 30 28 01/25/19 01/25/19 01/25/19 01/25/19 13:00 13:15 13:16 13:20 Temp 37.0 37.1 37.1 98.6 98.8 98.8 Pulse 67 73 74 72 Resp 16 B/P (MAP) 180/83 (115) 167/71 (103) Pulse Ox 94 95 96 95 FiO2 28 01/25/19 01/25/19 01/25/19 01/25/19 13:30 13:45 13:53 14:00 Temp 37.2 37.3 37.3 37.3 99.0 99.1 99.1 99.1 Pulse 65 70 68 64 B/P (MAP) 148/60 (89) 139/101 (114) 147/64 (91) 149/69 (95) Pulse Ox 94 95 95 94 01/25/19 01/25/19 01/25/19 01/25/19 14:15 14:30 14:45 15:00 Temp 37.4 37.4 37.3 37.3 99.3 99.3 99.1 99.1 Pulse 66 77 76 75 Resp 19 B/P (MAP) 147/67 (93) 125/60 (81) 119/60 (79) 124/64 (84) Pulse Ox 95 94 95 94 01/25/19 01/25/19 01/25/19 01/25/19 15:15 15:30 15:45 16:00 Temp 37.3 37.3 37.3 37.3 99.1 99.1 99.1 99.1 Pulse 83 79 77 78 Resp 18 B/P (MAP) 126/61 (82) 118/56 (76) 127/63 (84) 99/53 (68) Pulse Ox 94 93 95 95 01/25/19 01/25/19 01/25/19 01/25/19 16:00 16:15 16:30 16:45 Temp 37.3 37.3 37.3 99.1 99.1 99.1 Pulse 81 76 77 Resp 13 B/P (MAP) 132/63 (86) 147/59 (88) 143/86 (105) Pulse Ox 95 95 95 O2 Delivery Nasal Cannula O2 Flow Rate 2.00 01/25/19 01/25/19 01/25/19 01/25/19 17:00 17:06 17:15 17:30 Temp 37.3 37.3 37.3 37.3 99.1 99.1 99.1 99.1 Pulse 75 76 79 80 Resp 10 13 19 17 B/P (MAP) 146/115 (125) 142/72 (95) 146/75 (98) 128/66 (86) Pulse Ox 97 93 95 96 01/25/19 01/25/19 01/25/19 01/25/19 17:45 18:00 18:10 18:10 Temp 37.4 37.4 99.3 99.3 Pulse 80 80 75 80 Resp 16 16 B/P (MAP) 146/63 (90) 148/62 (90) Pulse Ox 95 96 97 98 01/25/19 01/25/19 01/25/19 01/25/19 18:15 18:30 19:00 19:00 Temp 37.3 37.3 37.3 99.1 99.1 99.1 Pulse 80 79 77 Resp 17 23 29 B/P (MAP) 151/65 (93) 165/73 (103) 154/112 (126) Pulse Ox 96 96 96 O2 Delivery Nasal Cannula O2 Flow Rate 2.00 01/25/19 01/25/19 01/25/19 01/25/19 19:15 19:30 19:45 20:00 Temp 37.2 37.2 37.3 99.0 99.0 99.1 Pulse 82 76 77 79 Resp 22 11 11 18 B/P (MAP) 146/76 (99) 147/56 (86) 159/78 (105) Pulse Ox 96 96 96 98 O2 Delivery Nasal Cannula O2 Flow Rate 2.00 FiO2 28 01/25/19 01/25/19 01/25/19 01/25/19 20:00 20:00 20:15 20:15 Temp 37.3 37.2 99.1 99.0 Pulse 79 80 81 80 Resp 18 18 18 12 B/P (MAP) 161/78 (105) Pulse Ox 98 96 99 98 01/25/19 01/25/19 01/25/19 01/25/19 20:30 20:45 21:00 21:05 Pulse 83 82 89 98 Resp 11 23 15 B/P (MAP) 165/77 (106) 142/65 (90) 153/62 Pulse Ox 99 98 98 01/25/19 01/25/19 01/25/19 01/25/19 21:15 21:30 21:45 22:00 Pulse 91 95 97 100 Resp 18 18 40 15 B/P (MAP) 153/62 (92) 173/97 (122) Pulse Ox 98 99 97 95 01/25/19 01/25/19 01/25/19 01/25/19 22:15 22:30 22:45 23:00 Pulse 96 95 91 96 Resp 14 20 15 19 B/P (MAP) 162/83 (109) 150/79 (102) Pulse Ox 98 97 99 97 01/25/19 01/25/19 01/25/19 01/25/19 23:00 23:13 23:15 23:30 Pulse 96 93 101 Resp 21 20 B/P (MAP) 160/74 160/74 (102) Pulse Ox 98 97 O2 Delivery Nasal Cannula O2 Flow Rate 2.00 01/25/19 01/26/19 01/26/19 01/26/19 23:45 00:00 00:15 00:45 Pulse 92 95 101 110 Resp 14 20 12 12 B/P (MAP) 138/61 (86) Pulse Ox 96 97 96 93 01/26/19 01/26/19 01/26/19 01/26/19 01:00 01:10 01:15 01:21 Pulse 115 107 106 102 Resp 16 28 24 21 B/P (MAP) 171/96 (121) 159/86 (110) Pulse Ox 93 88 91 89 01/26/19 01/26/19 01/26/19 01/26/19 01:30 01:30 01:45 02:00 Pulse 114 118 116 122 Resp 18 30 19 B/P (MAP) 176/94 (121) 171/96 Pulse Ox 93 88 92 01/26/19 01/26/19 01/26/19 01/26/19 02:00 02:15 02:30 02:45 Pulse 117 123 118 109 Resp 14 16 17 23 B/P (MAP) 145/52 (83) 119/62 (81) Pulse Ox 92 91 89 90 01/26/19 01/26/19 01/26/19 01/26/19 03:00 03:15 03:30 03:45 Pulse 116 117 111 112 Resp 24 20 17 11 B/P (MAP) 137/70 (92) 146/76 (99) 124/59 (80) 126/59 (81) Pulse Ox 88 86 86 86 01/26/19 01/26/19 01/26/19 01/26/19 04:00 04:00 04:15 04:30 Temp 99.4 99.4 Pulse 107 102 102 Resp 17 16 15 B/P (MAP) 123/50 (74) 116/52 (73) 120/59 (79) Pulse Ox 86 89 88 O2 Delivery Nasal Cannula O2 Flow Rate 2.00 01/26/19 01/26/19 01/26/19 01/26/19 04:45 04:45 05:00 05:00 Pulse 106 103 105 104 Resp 15 18 16 16 B/P (MAP) 125/59 (81) 119/49 (72) Pulse Ox 89 88 89 93 01/26/19 01/26/19 01/26/19 01/26/19 05:15 05:30 05:45 06:00 Pulse 105 102 89 89 Resp 16 19 17 14 B/P (MAP) 119/56 (77) 127/64 (85) 127/56 (79) 126/59 (81) Pulse Ox 92 89 91 92 Intake and Output 01/25/19 01/25/19 01/26/19 14:59 22:59 06:59 Intake Total 2244 ml Output Total 800 ml 400 ml Balance -800 ml 1844 ml General: Alert, Cooperative, No acute distress HEENT: Atraumatic, Mucous membr. moist/pink Lungs: Clear to auscultation, Normal air movement Heart: Normal S1, Normal S2 Abdomen: Normal bowel sounds, Soft Extremities: No clubbing, No cyanosis Neuro: Normal speech Psych/Mental Status: Mental status NL, Mood NL All Results(Lab/Rad) Laboratory Tests Test 01/25/19 08:00 01/25/19 13:10 01/25/19 13:35 01/25/19 18:50 Blood Gas Sample Site LEFT BRACHIAL ARTRY Blood Gas pH 7.331 Blood Gas PCO2 35.6 mmHg Blood Gas PO2 107.4 mmHg Blood Gas HCO3 18.4 mmol/L Blood Gas Base Excess -6.8 mmol/L Jose Test N/A Arterial Blood Oxygen Saturation 96.8 % Deoxyhemoglobin 3.2 % Carboxyhemoglobin 0.6 % Methemoglobin 0.3 % Total Hemoglobin 11.3 % Total Oxygen Concentration 15.4 % Lactic Acid (Blood Gas) 1.2 MMOL/L Blood Gas Temperature 37 Blood Gas Vent Mode SIMV Blood Gas Vent Rate 15 FiO2 45 % Blood Gas Tidal Volume 450 ML Blood Gas PEEP 5 CMH2O Blood Gas Pressure Support 10 CMH2O Bicarbonate 19.5 mmol/L White Blood Count 10.6 10^3/uL Red Blood Count 3.98 10^6/uL Hemoglobin 11.8 g/dL Hematocrit 35.2 % Mean Corpuscular Volume 88.4 fL Mean Corpuscular Hemoglobin 29.6 pg Mean Corpuscular Hemoglobin Concent 33.5 g/dL Red Cell Distribution Width 14.2 % Platelet Count 242 10^3/uL Mean Platelet Volume 11.1 fL Neutrophils (%) (Auto) 90.9 % Lymphocytes (%) (Auto) 6.2 % Monocytes (%) (Auto) 1.7 % Neutrophils # (Auto) 9.7 10^3/uL Lymphocytes # (Auto) 0.7 10^3/uL Monocytes # (Auto) 0.2 10^3/uL Absolute Immature Granulocyte (auto 0.03 10^3 u/L Eosinophils % 0.6 % Basophils % 0.3 % Basophils # 0.0 10^3/uL Eosinophil Count 0.1 10^3/uL Troponin I 1.27 ng/mL 0.90 ng/mL Pro-B-Type Natriuretic Peptide 97685 pg/mL Percent Immature Gran (Cell Imm) 0.30 % Differential Total Cells Counted 100 #CELLS Segmented Neutrophils 92 % Band Neutrophils 1 % Lymphocytes 7 % Platelet Morphology NORMAL Poikilocytosis 1+ Anisocytosis 1+ Test 01/26/19 01:31 01/26/19 04:50 01/26/19 04:58 01/26/19 05:32 Vancomycin Level Trough 22.8 ug/mL Blood Gas Sample Site RT BRACIAL ARTERY Blood Gas pH 7.386 Blood Gas PCO2 26.3 mmHg Blood Gas PO2 73.0 mmHg Blood Gas HCO3 15.4 mmol/L Blood Gas Base Excess -8.2 mmol/L Jose Test N/A Arterial Blood Oxygen Saturation 93.5 % Deoxyhemoglobin 6.4 % Carboxyhemoglobin 1.1 % Methemoglobin 0.5 % Total Hemoglobin 11.0 % Total Oxygen Concentration 14.3 % Lactic Acid (Blood Gas) 1.9 MMOL/L Blood Gas Temperature 37.0 Oxygen Delivery Method (LAB) NASAL CANNULA FiO2 0.32 % Bicarbonate 16.2 mmol/L White Blood Count 10.8 10^3/uL Red Blood Count 3.42 10^6/uL Hemoglobin 10.3 g/dL Hematocrit 30.7 % Mean Corpuscular Volume 89.8 fL Mean Corpuscular Hemoglobin 30.1 pg Mean Corpuscular Hemoglobin Concent 33.6 g/dL Red Cell Distribution Width 14.2 % Platelet Count 225 10^3/uL Mean Platelet Volume 11.1 fL Neutrophils (%) (Auto) 89.8 % Lymphocytes (%) (Auto) 6.2 % Monocytes (%) (Auto) 3.8 % Neutrophils # (Auto) 9.7 10^3/uL Lymphocytes # (Auto) 0.7 10^3/uL Monocytes # (Auto) 0.4 10^3/uL Absolute Immature Granulocyte (auto 0.02 10^3 u/L Eosinophils % 0.0 % Basophils % 0.0 % Basophils # 0.0 10^3/uL Eosinophil Count 0.0 10^3/uL Sodium Level 139 mmol/L Potassium Level 3.4 mmol/L Chloride Level 108.0 mmol/L Carbon Dioxide Level 18.9 mmol/L Anion Gap 15.5 Blood Urea Nitrogen 21 mg/dL Creatinine 1.43 mg/dL Estimated GFR () 44.3 BUN/Creatinine Ratio 14.0 Glucose Level 143 mg/dL Hemoglobin A1c 5.8 % Calcium Level 9.2 mg/dL Total Bilirubin 0.3 mg/dL Aspartate Amino Transf (AST/SGOT) 19 U/L Alanine Aminotransferase (ALT/SGPT) 11 U/L Alkaline Phosphatase 110 U/L Total Protein 6.2 g/dL Albumin 2.7 g/dL Globulin 3.5 Triglycerides Level 64 mg/dL Cholesterol Level 223 mg/dL LDL Cholesterol, Calculated 163.2 VLDL Cholesterol 12.8 HDL Cholesterol 47 mg/dL Cholesterol Ratio (LDL/HDL) [id number] Percent Immature Gran (Cell Imm) 0.20 % Differential Total Cells Counted 100 #CELLS Segmented Neutrophils 84 % Lymphocytes 14 % Monocytes 2 % Current Medications Medications (Trade) Dose Ordered Sig/Jacques Route PRN Reason Start Time Stop Time Status Last Admin Dose Admin Propofol 100 ml @ ud STK-MED ONCE IV 01/25/19 01:10 01/25/19 01:12 DC Propofol (Diprivan) 200 mg STK-MED ONCE IV 01/25/19 01:10 01/25/19 01:12 DC Sodium Chloride 1,000 ml @ 0 mls/hr Q0M STAT IV 01/25/19 01:31 01/25/19 01:34 DC 01/25/19 01:48 Albuterol/ Ipratropium (Duoneb 0.5 Mg-3 Mg/3 ml Soln) 3 ml STK-MED ONCE IH 01/25/19 01:35 01/25/19 01:36 DC Albuterol Sulfate (Ventolin) 2.5 mg STK-MED ONCE IH 01/25/19 01:35 01/25/19 01:36 DC Albuterol/ Ipratropium (Duoneb 0.5 Mg-3 Mg/3 ml Soln) 3 ml STAT STAT IH 01/25/19 01:58 01/25/19 02:00 DC 01/25/19 02:07 Albuterol Sulfate (Ventolin) 2.5 mg STAT STAT IH 01/25/19 01:58 01/25/19 02:00 DC 01/25/19 02:07 Vancomycin HCl 900 mg/Sodium Chloride 100 ml @ 100 mls/hr Q8H IV 01/25/19 02:30 01/25/19 08:38 DC 01/25/19 03:09 Piperacillin Sod/ Tazobactam Sod 3.375 gm/Sodium Chloride 100 ml @ 100 mls/hr Q6H IV 01/25/19 02:30 02/24/19 02:29 01/26/19 02:30 Albuterol/ Ipratropium (Duoneb 0.5 Mg-3 Mg/3 ml Soln) 3 ml RTQ4 IH 01/25/19 05:00 02/24/19 04:59 01/26/19 05:37 Enoxaparin Sodium (Lovenox) 40 mg DAILY SQ 01/25/19 09:00 02/24/19 08:59 01/25/19 09:00 Pantoprazole Sodium (Protonix Iv) 40 mg DAILY IV 01/25/19 09:00 02/24/19 08:59 01/25/19 09:00 Propofol (Diprivan) 1,000 mg PRN PRN IV SEDATION 01/25/19 03:00 02/24/19 02:59 01/25/19 07:07 Sodium Chloride 1,000 ml @ 125 mls/hr Q8H IV 01/25/19 03:30 02/24/19 03:29 01/26/19 00:18 Sodium Chloride 100 ml @ ud STK-MED ONCE IV 01/25/19 03:11 01/25/19 03:12 DC Sodium Chloride 2,000 ml @ ud STK-MED ONCE .ROUTE 01/25/19 03:11 01/25/19 03:12 DC Sodium Chloride 250 ml @ ud STK-MED ONCE IV 01/25/19 03:11 01/25/19 03:12 DC Vancomycin HCl 1 ml @ ud STK-MED ONCE .ROUTE 01/25/19 03:11 01/25/19 03:13 DC Piperacillin Sod/ Tazobactam Sod (Zosyn 3.375 Gram Vial) 3.375 gm STK-MED ONCE IV 01/25/19 03:12 01/25/19 03:13 DC Sterile Water (Water) 1,000 ml STK-MED ONCE .ROUTE 01/25/19 06:54 01/25/19 06:55 DC Sodium Chloride 100 ml @ ud STK-MED ONCE IV 01/25/19 07:31 01/25/19 07:32 DC Piperacillin Sod/ Tazobactam Sod (Zosyn 3.375 Gram Vial) 3.375 gm STK-MED ONCE IV 01/25/19 07:31 01/25/19 07:32 DC Pantoprazole Sodium (Protonix Iv) 40 mg STK-MED ONCE IV 01/25/19 07:35 01/25/19 07:36 DC Enoxaparin Sodium (Lovenox) 40 mg STK-MED ONCE SQ 01/25/19 07:35 01/25/19 07:37 DC Vancomycin HCl 0.9 gm/Sodium Chloride 250 ml @ 175 mls/hr Q8H IV 01/25/19 10:00 01/26/19 07:49 DC 01/25/19 18:00 Sodium Chloride 500 ml @ ud STK-MED ONCE IV 01/25/19 09:05 01/25/19 09:06 DC Sodium Chloride 500 ml @ 500 mls/hr Q1H ONCE IV 01/25/19 09:30 01/25/19 10:29 DC 01/25/19 09:09 Methylprednisolone Sodium Succinate (Solu-Medrol) 60 mg Q6 IV 01/25/19 09:30 02/24/19 09:29 01/26/19 05:59 Insulin Human Regular (Humulin R) Give 30 minutes before meal ACHS SQ 01/25/19 11:30 01/25/19 20:45 DC Dextrose (Dextrose 50%-Water Syringe) 25 ml STAT PRN IV [id number] 01/25/19 10:00 02/24/19 09:59 Insulin Glargine (Lantus) 20 unit HS SQ 01/25/19 10:00 02/24/19 09:59 Future Hold 01/25/19 09:54 Furosemide (Lasix) 20 mg STK-MED ONCE .ROUTE 01/25/19 10:30 01/25/19 10:31 DC Furosemide (Lasix) 20 mg OT ONCE IV 01/25/19 11:00 01/25/19 11:01 DC 01/25/19 10:42 Carvedilol (Coreg) 3.125 mg BID PO 01/25/19 21:00 01/26/19 07:49 DC 01/25/19 21:05 Clopidogrel Bisulfate (Plavix) 75 mg DAILY PO 01/26/19 09:00 02/25/19 08:59 Levetiracetam (Keppra) 500 mg BID PO 01/25/19 12:31 02/24/19 12:30 01/25/19 21:05 Nifedipine (Procardia) 30 mg BID PO 01/25/19 12:00 02/24/19 11:59 01/25/19 21:05 Pantoprazole Sodium (Protonix) 40 mg DAILY PO 01/25/19 12:28 01/25/19 12:55 DC Potassium Chloride (Klor-Con 10) 20 meq DAILY24 PO 01/25/19 12:00 02/24/19 11:59 01/25/19 12:00 Sertraline HCl (Zoloft) 100 mg DAILY PO 01/26/19 09:00 02/25/19 08:59 Simvastatin (Zocor) 40 mg HS PO 01/25/19 21:00 02/24/19 20:59 01/25/19 21:05 Hydralazine HCl (Apresoline) 10 mg Q4HR PRN IV HYPERTENSION 01/25/19 12:30 02/24/19 12:29 01/25/19 23:13 Hydralazine HCl (Apresoline) 10 mg STK-MED ONCE .ROUTE 01/25/19 12:29 01/25/19 12:31 DC Hydralazine HCl (Apresoline) 20 mg STK-MED ONCE .ROUTE 01/25/19 12:31 01/25/19 12:32 DC Aspirin (Aspirin) 81 mg DAILY PO 01/25/19 13:00 02/24/19 12:59 01/25/19 13:00 Insulin Human Regular (Humulin R) Give 30 minutes before meal ACHS SQ 01/25/19 21:00 02/24/19 20:59 01/25/19 21:00 Ibuprofen (Motrin) 800 mg Q6H PRN PO PAIN 01/25/19 23:30 02/24/19 23:29 01/26/19 00:10 Acetaminophen (Tylenol) 1,000 mg Q6HR PRN PO PAIN 01/26/19 00:30 02/25/19 00:29 01/26/19 00:33 Lorazepam (Ativan) 2 mg STK-MED ONCE .ROUTE 01/26/19 01:43 01/26/19 01:45 DC Lorazepam (Ativan) 1 mg STAT STAT IV 01/26/19 01:45 01/26/19 01:46 DC 01/26/19 01:45 Metoprolol Tartrate (Lopresser) 5 mg STK-MED ONCE .ROUTE 01/26/19 01:58 01/26/19 02:00 DC Metoprolol Tartrate (Lopresser) 5 mg STAT STAT IVP 01/26/19 02:00 01/26/19 02:13 DC 01/26/19 02:00 Morphine Sulfate (Morphine Sulfate) 4 mg STK-MED ONCE .ROUTE 01/26/19 02:48 01/26/19 02:49 DC Morphine Sulfate (Duramorph) 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 Q4H PRN IV PAIN 01/26/19 03:00 02/25/19 02:59 UNV 01/26/19 02:59 Azithromycin 500 mg/Sodium Chloride 250 ml @ 175 mls/hr Q24HRS IV 01/26/19 08:00 02/25/19 07:59 UNV Course Sepsis Screening Results: Posi: NEGATIVE Sepsis Qualifier/Stage: NO DEFINITE RISK Duration or Total Time Spent w: 90 Vitals & review Data Vital Sign - Last 24 Hours 01/25/19 01/25/19 01/25/19 01/25/19 08:00 08:05 08:15 08:30 Temp 36.7 36.7 36.7 98.1 98.1 98.1 Pulse 58 57 62 67 Resp 15 15 17 16 B/P (MAP) 134/64 (87) 135/68 (90) 173/92 (119) Pulse Ox 99 99 99 99 FiO2 45 01/25/19 01/25/19 01/25/19 01/25/19 08:45 09:00 09:05 09:05 Temp 36.7 36.8 98.1 98.2 Pulse 56 56 58 55 Resp 15 15 15 15 B/P (MAP) 167/72 (103) 131/68 (89) Pulse Ox 100 99 97 99 01/25/19 01/25/19 01/25/19 01/25/19 09:15 09:30 09:45 10:00 Temp 36.8 36.8 36.8 36.8 98.2 98.2 98.2 98.2 Pulse 57 62 55 57 Resp 16 15 16 B/P (MAP) 141/70 (93) 136/59 (84) 145/64 (91) 133/67 (89) Pulse Ox 99 98 97 95 01/25/19 01/25/19 01/25/19 01/25/19 10:10 10:15 10:30 10:42 Temp 36.7 36.7 98.1 98.1 Pulse 55 56 58 Resp 15 17 16 B/P (MAP) 152/72 (98) 158/69 (98) 168/76 Pulse Ox 98 96 98 FiO2 30 01/25/19 01/25/19 01/25/19 01/25/19 10:45 11:00 11:15 11:30 Temp 36.7 36.7 36.7 36.8 98.1 98.1 98.1 98.2 Pulse 54 57 60 65 Resp 15 16 15 15 B/P (MAP) 162/64 (96) 168/76 (106) 172/74 (106) 178/79 (112) Pulse Ox 95 97 97 96 01/25/19 01/25/19 01/25/19 01/25/19 11:45 12:00 12:00 12:00 Temp 36.8 36.8 98.2 98.2 Pulse 66 56 66 Resp 16 18 B/P (MAP) 153/85 (107) 166/76 (106) Pulse Ox 96 99 96 O2 Delivery Mechanical Ventilator FiO2 30 01/25/19 01/25/19 01/25/19 01/25/19 12:15 12:30 12:40 12:40 Temp 36.9 36.9 98.4 98.4 Pulse 67 74 72 72 B/P (MAP) 175/79 (111) 174/84 (114) 180/83 Pulse Ox 95 95 94 01/25/19 01/25/19 01/25/19 01/25/19 12:40 12:40 12:45 13:00 Temp 36.9 98.4 Pulse 70 70 74 68 Resp 20 12 24 B/P (MAP) 176/84 (114) Pulse Ox 94 94 95 95 FiO2 30 28 01/25/19 01/25/19 01/25/19 01/25/19 13:00 13:15 13:16 13:20 Temp 37.0 37.1 37.1 98.6 98.8 98.8 Pulse 67 73 74 72 Resp 16 B/P (MAP) 180/83 (115) 167/71 (103) Pulse Ox 94 95 96 95 FiO2 28 01/25/19 01/25/19 01/25/19 01/25/19 13:30 13:45 13:53 14:00 Temp 37.2 37.3 37.3 37.3 99.0 99.1 99.1 99.1 Pulse 65 70 68 64 B/P (MAP) 148/60 (89) 139/101 (114) 147/64 (91) 149/69 (95) Pulse Ox 94 95 95 94 01/25/19 01/25/19 01/25/19 01/25/19 14:15 14:30 14:45 15:00 Temp 37.4 37.4 37.3 37.3 99.3 99.3 99.1 99.1 Pulse 66 77 76 75 Resp 20 16 19 B/P (MAP) 147/67 (93) 125/60 (81) 119/60 (79) 124/64 (84) Pulse Ox 95 94 95 94 01/25/19 01/25/19 01/25/19 01/25/19 15:15 15:30 15:45 16:00 Temp 37.3 37.3 37.3 37.3 99.1 99.1 99.1 99.1 Pulse 83 79 77 78 Resp 19 19 25 18 B/P (MAP) 126/61 (82) 118/56 (76) 127/63 (84) 99/53 (68) Pulse Ox 94 93 95 95 01/25/19 01/25/19 01/25/19 01/25/19 16:00 16:15 16:30 16:45 Temp 37.3 37.3 37.3 99.1 99.1 99.1 Pulse 81 76 77 Resp 17 17 13 B/P (MAP) 132/63 (86) 147/59 (88) 143/86 (105) Pulse Ox 95 95 95 O2 Delivery Nasal Cannula O2 Flow Rate 2.00 01/25/19 01/25/19 01/25/19 01/25/19 17:00 17:06 17:15 17:30 Temp 37.3 37.3 37.3 37.3 99.1 99.1 99.1 99.1 Pulse 75 76 79 80 Resp 10 13 19 17 B/P (MAP) 146/115 (125) 142/72 (95) 146/75 (98) 128/66 (86) Pulse Ox 97 93 95 96 01/25/19 01/25/19 01/25/19 01/25/19 17:45 18:00 18:10 18:10 Temp 37.4 37.4 99.3 99.3 Pulse 80 80 75 80 Resp 16 16 B/P (MAP) 146/63 (90) 148/62 (90) Pulse Ox 95 96 97 98 01/25/19 01/25/19 01/25/19 01/25/19 18:15 18:30 19:00 19:00 Temp 37.3 37.3 37.3 99.1 99.1 99.1 Pulse 80 79 77 Resp 29 B/P (MAP) 151/65 (93) 165/73 (103) 154/112 (126) Pulse Ox 96 96 96 O2 Delivery Nasal Cannula O2 Flow Rate 2.00 01/25/19 01/25/19 01/25/19 01/25/19 19:15 19:30 19:45 20:00 Temp 37.2 37.2 37.3 99.0 99.0 99.1 Pulse 82 76 77 79 Resp 22 11 11 18 B/P (MAP) 146/76 (99) 147/56 (86) 159/78 (105) Pulse Ox 96 96 96 98 O2 Delivery Nasal Cannula O2 Flow Rate 2.00 FiO2 28 01/25/19 01/25/19 01/25/19 01/25/19 20:00 20:00 20:15 20:15 Temp 37.3 37.2 99.1 99.0 Pulse 79 80 81 80 Resp 18 18 18 12 B/P (MAP) 161/78 (105) Pulse Ox 98 96 99 98 01/25/19 01/25/19 01/25/19 01/25/19 20:30 20:45 21:00 21:05 Pulse 83 82 89 98 Resp 11 23 15 B/P (MAP) 165/77 (106) 142/65 (90) 153/62 Pulse Ox 99 98 98 01/25/19 01/25/19 01/25/19 01/25/19 21:15 21:30 21:45 22:00 Pulse 91 95 97 100 Resp 18 18 40 15 B/P (MAP) 153/62 (92) 173/97 (122) Pulse Ox 98 99 97 95 01/25/19 01/25/19 01/25/19 01/25/19 22:15 22:30 22:45 23:00 Pulse 96 95 91 96 Resp 14 20 15 19 B/P (MAP) 162/83 (109) 150/79 (102) Pulse Ox 98 97 99 97 01/25/19 01/25/19 01/25/19 01/25/19 23:00 23:13 23:15 23:30 Pulse 96 93 101 Resp 21 20 B/P (MAP) 160/74 160/74 (102) Pulse Ox 98 97 O2 Delivery Nasal Cannula O2 Flow Rate 2.00 01/25/19 01/26/19 01/26/19 01/26/19 23:45 00:00 00:15 00:45 Pulse 92 95 101 110 Resp 14 20 12 12 B/P (MAP) 138/61 (86) Pulse Ox 96 97 96 93 01/26/19 01/26/19 01/26/19 01/26/19 01:00 01:10 01:15 01:21 Pulse 115 107 106 102 Resp 16 28 24 21 B/P (MAP) 171/96 (121) 159/86 (110) Pulse Ox 93 88 91 89 01/26/19 01/26/19 01/26/19 01/26/19 01:30 01:30 01:45 02:00 Pulse 114 118 116 122 Resp 18 30 19 B/P (MAP) 176/94 (121) 171/96 Pulse Ox 93 88 92 01/26/19 01/26/19 01/26/19 01/26/19 02:00 02:15 02:30 02:45 Pulse 117 123 118 109 Resp 14 16 17 23 B/P (MAP) 145/52 (83) 119/62 (81) Pulse Ox 92 91 89 90 01/26/19 01/26/19 01/26/19 01/26/19 03:00 03:15 03:30 03:45 Pulse 116 117 111 112 Resp 24 20 17 11 B/P (MAP) 137/70 (92) 146/76 (99) 124/59 (80) 126/59 (81) Pulse Ox 88 86 86 86 01/26/19 01/26/19 01/26/19 01/26/19 04:00 04:00 04:15 04:30 Temp 99.4 99.4 Pulse 107 102 102 Resp 17 16 15 B/P (MAP) 123/50 (74) 116/52 (73) 120/59 (79) Pulse Ox 86 89 88 O2 Delivery Nasal Cannula O2 Flow Rate 2.00 01/26/19 01/26/19 01/26/19 01/26/19 04:45 04:45 05:00 05:00 Pulse 106 103 105 104 Resp 15 18 16 16 B/P (MAP) 125/59 (81) 119/49 (72) Pulse Ox 89 88 89 93 01/26/19 01/26/19 01/26/19 01/26/19 05:15 05:30 05:45 06:00 Pulse 105 102 89 89 Resp 16 19 17 14 B/P (MAP) 119/56 (77) 127/64 (85) 127/56 (79) 126/59 (81) Pulse Ox 92 89 91 92 Intake and Output 01/25/19 01/25/19 01/26/19 14:59 22:59 06:59 Intake Total 2244 ml Output Total 800 ml 400 ml Balance -800 ml 1844 ml Laboratory Tests Test 01/25/19 01:10 01/25/19 01:15 01/25/19 01:31 01/25/19 02:12 Blood Gas Sample Site LEFT RADIAL ARTERY Blood Gas pH 7.188 Blood Gas PCO2 46.6 mmHg Blood Gas PO2 179.8 mmHg Blood Gas HCO3 17.3 mmol/L Blood Gas Base Excess -10.7 mmol/L Jose Test POSITIVE Arterial Blood Oxygen Saturation 98.5 % Deoxyhemoglobin 1.4 % Carboxyhemoglobin 5.0 % Methemoglobin 0.4 % Total Hemoglobin 13.3 % Total Oxygen Concentration 17.8 % Lactic Acid (Blood Gas) 3.7 MMOL/L Blood Gas Temperature 37.0 Oxygen Delivery Method (LAB) VENT Blood Gas Vent Mode SIMV Blood Gas Vent Rate 15 FiO2 0.75 % Blood Gas Tidal Volume 450 ML Blood Gas PEEP 5.0 CMH2O Blood Gas Pressure Support 10 CMH2O Bicarbonate 18.7 mmol/L Sodium Level 142 mmol/L Potassium Level 3.6 mmol/L Chloride Level 105.0 mmol/L Carbon Dioxide Level 21.1 mmol/L Anion Gap 19.5 Blood Urea Nitrogen 19 mg/dL Creatinine 1.41 mg/dL Estimated GFR () 45.0 BUN/Creatinine Ratio 13.0 Glucose Level 245 mg/dL Calcium Level 9.4 mg/dL Total Bilirubin 0.2 mg/dL Aspartate Amino Transf (AST/SGOT) 15 U/L Alanine Aminotransferase (ALT/SGPT) 10 U/L Alkaline Phosphatase 158 U/L Total Creatine Kinase 59 U/L Troponin I 0.76 ng/mL Total Protein 7.3 g/dL Albumin 3.1 g/dL Globulin 4.2 White Blood Count 9.0 10^3/uL Red Blood Count 4.17 10^6/uL Hemoglobin 12.4 g/dL Hematocrit 37.6 % Mean Corpuscular Volume 90.2 fL Mean Corpuscular Hemoglobin 29.7 pg Mean Corpuscular Hemoglobin Concent 33.0 g/dL Red Cell Distribution Width 14.0 % Platelet Count 303 10^3/uL Mean Platelet Volume 10.9 fL Neutrophils (%) (Auto) 46.5 % Lymphocytes (%) (Auto) 38.2 % Monocytes (%) (Auto) 10.0 % Neutrophils # (Auto) 4.2 10^3/uL Lymphocytes # (Auto) 3.4 10^3/uL Monocytes # (Auto) 0.9 10^3/uL Absolute Immature Granulocyte (auto 0.06 10^3 u/L Eosinophils % 4.0 % Basophils % 0.6 % Basophils # 0.1 10^3/uL Eosinophil Count 0.4 10^3/uL Percent Immature Gran (Cell Imm) 0.70 % Urine Collection Type CCMS Urine Color YELLOW Urine Appearance CLOUDY Urine Bilirubin NEGATIVE MG/DL Urine Ketones NEGATIVE Urine Specific [place] 1.025 Urine pH 5 Urine Protein 500 mg/dL Urine Urobilinogen NORMAL Urine Nitrate NEGATIVE Urine Leukocyte Esterase NEGATIVE Urine Blood 10 TR Urine RBC NONE SEEN RBC/HPF Urine WBC 5-10 WBC/HPF Urine Squamous Epithelial Cells MODERATE #/HPF Urine Amorphous Sediment LARGE Urine Bacteria FEW Urine Other MUCUS 1+ #/HPF Urine Glucose NORMAL Test 01/25/19 04:30 01/25/19 08:00 01/25/19 13:10 01/25/19 13:35 Blood Gas Sample Site LEFT BRACHIAL ARTRY LEFT BRACHIAL ARTRY Blood Gas pH 7.349 7.331 Blood Gas PCO2 32.0 mmHg 35.6 mmHg Blood Gas PO2 103.3 mmHg 107.4 mmHg Blood Gas HCO3 17.2 mmol/L 18.4 mmol/L Blood Gas Base Excess -7.4 mmol/L -6.8 mmol/L Jose Test N/A N/A Arterial Blood Oxygen Saturation 96.9 % 96.8 % Deoxyhemoglobin 3.0 % 3.2 % Carboxyhemoglobin 1.6 % 0.6 % Methemoglobin 0.3 % 0.3 % Total Hemoglobin 11.7 % 11.3 % Total Oxygen Concentration 15.8 % 15.4 % Lactic Acid (Blood Gas) 0.8 MMOL/L 1.2 MMOL/L Blood Gas Temperature 37.0 37 Oxygen Delivery Method (LAB) VENT Blood Gas Vent Mode SIMV SIMV Blood Gas Vent Rate 15 15 FiO2 0.45 % 45 % Blood Gas Tidal Volume 450 ML 450 ML Blood Gas PEEP 5.0 CMH2O 5 CMH2O Blood Gas Pressure Support 10 CMH2O 10 CMH2O Bicarbonate 18.2 mmol/L 19.5 mmol/L White Blood Count 10.6 10^3/uL Red Blood Count 3.98 10^6/uL Hemoglobin 11.8 g/dL Hematocrit 35.2 % Mean Corpuscular Volume 88.4 fL Mean Corpuscular Hemoglobin 29.6 pg Mean Corpuscular Hemoglobin Concent 33.5 g/dL Red Cell Distribution Width 14.2 % Platelet Count 242 10^3/uL Mean Platelet Volume 11.1 fL Neutrophils (%) (Auto) 90.9 % Lymphocytes (%) (Auto) 6.2 % Monocytes (%) (Auto) 1.7 % Neutrophils # (Auto) 9.7 10^3/uL Lymphocytes # (Auto) 0.7 10^3/uL Monocytes # (Auto) 0.2 10^3/uL Absolute Immature Granulocyte (auto 0.03 10^3 u/L Eosinophils % 0.6 % Basophils % 0.3 % Basophils # 0.0 10^3/uL Eosinophil Count 0.1 10^3/uL Troponin I 1.27 ng/mL Pro-B-Type Natriuretic Peptide 10785 pg/mL Percent Immature Gran (Cell Imm) 0.30 % Differential Total Cells Counted 100 #CELLS Segmented Neutrophils 92 % Band Neutrophils 1 % Lymphocytes 7 % Platelet Morphology NORMAL Poikilocytosis 1+ Anisocytosis 1+ Test 01/25/19 18:50 01/26/19 01:31 01/26/19 04:50 01/26/19 04:58 Troponin I 0.90 ng/mL Vancomycin Level Trough 22.8 ug/mL Blood Gas Sample Site RT BRACIAL ARTERY Blood Gas pH 7.386 Blood Gas PCO2 26.3 mmHg Blood Gas PO2 73.0 mmHg Blood Gas HCO3 15.4 mmol/L Blood Gas Base Excess -8.2 mmol/L Jose Test N/A Arterial Blood Oxygen Saturation 93.5 % Deoxyhemoglobin 6.4 % Carboxyhemoglobin 1.1 % Methemoglobin 0.5 % Total Hemoglobin 11.0 % Total Oxygen Concentration 14.3 % Lactic Acid (Blood Gas) 1.9 MMOL/L Blood Gas Temperature 37.0 Oxygen Delivery Method (LAB) NASAL CANNULA FiO2 0.32 % Bicarbonate 16.2 mmol/L White Blood Count 10.8 10^3/uL Red Blood Count 3.42 10^6/uL Hemoglobin 10.3 g/dL Hematocrit 30.7 % Mean Corpuscular Volume 89.8 fL Mean Corpuscular Hemoglobin 30.1 pg Mean Corpuscular Hemoglobin Concent 33.6 g/dL Red Cell Distribution Width 14.2 % Platelet Count 225 10^3/uL Mean Platelet Volume 11.1 fL Neutrophils (%) (Auto) 89.8 % Lymphocytes (%) (Auto) 6.2 % Monocytes (%) (Auto) 3.8 % Neutrophils # (Auto) 9.7 10^3/uL Lymphocytes # (Auto) 0.7 10^3/uL Monocytes # (Auto) 0.4 10^3/uL Absolute Immature Granulocyte (auto 0.02 10^3 u/L Eosinophils % 0.0 % Basophils % 0.0 % Basophils # 0.0 10^3/uL Eosinophil Count 0.0 10^3/uL Sodium Level 139 mmol/L Potassium Level 3.4 mmol/L Chloride Level 108.0 mmol/L Carbon Dioxide Level 18.9 mmol/L Anion Gap 15.5 Blood Urea Nitrogen 21 mg/dL Creatinine 1.43 mg/dL Estimated GFR () 44.3 BUN/Creatinine Ratio 14.0 Glucose Level 143 mg/dL Hemoglobin A1c 5.8 % Calcium Level 9.2 mg/dL Total Bilirubin 0.3 mg/dL Aspartate Amino Transf (AST/SGOT) 19 U/L Alanine Aminotransferase (ALT/SGPT) 11 U/L Alkaline Phosphatase 110 U/L Total Protein 6.2 g/dL Albumin 2.7 g/dL Globulin 3.5 Triglycerides Level 64 mg/dL Cholesterol Level 223 mg/dL LDL Cholesterol, Calculated 163.2 VLDL Cholesterol 12.8 HDL Cholesterol 47 mg/dL Cholesterol Ratio (LDL/HDL) 4.675138 Percent Immature Gran (Cell Imm) 0.20 % Test 01/26/19 05:32 Differential Total Cells Counted 100 #CELLS Segmented Neutrophils 84 % Lymphocytes 14 % Monocytes 2 % Current Medications Medications (Trade) Dose Ordered Sig/Jacques PRN Reason Start Time Stop Time Status Last Admin Acetaminophen (Tylenol) 1,000 mg Q6HR PRN PAIN 01/26/19 00:30 02/25/19 00:29 01/26/19 00:33 Albuterol/ Ipratropium (Duoneb 0.5 Mg-3 Mg/3 ml Soln) 3 ml RTQ4 01/25/19 05:00 02/24/19 04:59 01/26/19 05:37 Aspirin (Aspirin) 81 mg DAILY 01/25/19 13:00 02/24/19 12:59 01/25/19 13:00 Azithromycin 500 mg/Sodium Chloride 250 ml @ 175 mls/hr Q24HRS 01/26/19 08:00 02/25/19 07:59 UNV Clopidogrel Bisulfate (Plavix) 75 mg DAILY 01/26/19 09:00 02/25/19 08:59 Dextrose (Dextrose 50%-Water Syringe) 25 ml STAT PRN HYPOGLYCEMIA 01/25/19 10:00 02/24/19 09:59 Enoxaparin Sodium (Lovenox) 40 mg DAILY 01/25/19 09:00 02/24/19 08:59 01/25/19 09:00 Hydralazine HCl (Apresoline) 10 mg Q4HR PRN HYPERTENSION 01/25/19 12:30 02/24/19 12:29 01/25/19 23:13 Ibuprofen (Motrin) 800 mg Q6H PRN PAIN 01/25/19 23:30 02/24/19 23:29 01/26/19 00:10 Insulin Glargine (Lantus) 20 unit HS 01/25/19 10:00 02/24/19 09:59 Future Hold 01/25/19 09:54 Insulin Human Regular (Humulin R) Give 30 minutes before meal ACHS 01/25/19 21:00 02/24/19 20:59 01/25/19 21:00 Levetiracetam (Keppra) 500 mg BID 01/25/19 12:31 02/24/19 12:30 01/25/19 21:05 Methylprednisolone Sodium Succinate (Solu-Medrol) 60 mg Q6 01/25/19 09:30 02/24/19 09:29 01/26/19 05:59 Morphine Sulfate (Duramorph) 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 Q4H PRN PAIN 01/26/19 03:00 02/25/19 02:59 UNV 01/26/19 02:59 Nifedipine (Procardia) 30 mg BID 01/25/19 12:00 02/24/19 11:59 01/25/19 21:05 Pantoprazole Sodium (Protonix Iv) 40 mg DAILY 01/25/19 09:00 02/24/19 08:59 01/25/19 09:00 Piperacillin Sod/ Tazobactam Sod 3.375 gm/Sodium Chloride 100 ml @ 100 mls/hr Q6H 01/25/19 02:30 02/24/19 02:29 01/26/19 02:30 Potassium Chloride (Klor-Con 10) 20 meq DAILY24 01/25/19 12:00 02/24/19 11:59 01/25/19 12:00 Propofol (Diprivan) 1,000 mg PRN PRN SEDATION 01/25/19 03:00 02/24/19 02:59 01/25/19 07:07 Sertraline HCl (Zoloft) 100 mg DAILY 01/26/19 09:00 02/25/19 08:59 Simvastatin (Zocor) 40 mg HS 01/25/19 21:00 02/24/19 20:59 01/25/19 21:05 Sodium Chloride 1,000 ml @ 125 mls/hr Q8H 01/25/19 03:30 02/24/19 03:29 01/26/19 00:18 Sepsis Infection Criteria Pres: Documented Infection LEVEL 1 SEPSIS INFECTION CRITE: ABX Therapy LEVEL 2-SIRS (LIST ALL THAT AP: None/Not assessed Cardiovascular Evidence: Not Assessed or None Hematologic Evidence: None/Not assessed Hepatic Evidence: None/Not assessed Metabolic Evidence: None/Not assessed Neurological Evidence: None/Not assessed Respiratory Evidence: None/Not assessed Renal Evidence: None/Not assessed O2 Sat by Pulse Oximetry: 92 Respiratory End-tidal CO2: 22 Oxygen Flow Rate: 2.00 Assessment/Plan Assessment/Plan Assessment/Plan 1.) Acute Respiratory Failure - Secondary to COPD and CHF exacerbation as well as R lung CAP. Extubated yesterday and much improved today. Still requiring O2 at 2 to 3 liters. - Continue IV Corticosteroids. - Continue Zosyn and add Azithromycin for CAP coverage. Can d/c Vanc. - Continue IV diuresis. - Nebulizer and aggressive pulmonary hygiene. 2.) Metabolic Acidosis - Secondary to infection / CAP. - Continue tx of infection. - Add 2 amps bicarb to each liter of fluid. 3.) CAP - Continue Abx. 4.) Renal Failure - Probably acute on chronic. CKD secondary to HTN. Acute component secondary to mild ATN. - Gentle hydration but likely stop fluids soon so as not to overload. 5.) Acute Heart Failure - Volume overload and pulmonary edema. - Check echo for EF. 6.) HTN - Increase dose of current anti-htn drugs. 60 minutes spent in critical care management today. EMMA GR MD Jan 26, 2019 07:52
[2019-01-26] MEDS: COREG PO SCH ×3 (08:00→20:52)
[2019-01-26] MEDS ORDERED: ZITHROMAX 500 MG in NS 250ML 250 ML IV SCH (08:00)
--- NOTE | 2019-01-26 08:01 | NUR ---
Radiology Radiology at bedside for chest xray.
[2019-01-26] MEDS ORDERED: COREG ONE (08:06)
[2019-01-26] MEDS: ZOLOFT PO SCH (08:15)
[2019-01-26] MEDS: PROTONIX IV IV SCH (08:15)
[2019-01-26] MEDS: ASPIRIN PO SCH (08:15)
--- NOTE | 2019-01-26 08:15 | NUR ---
Nursing swallow evaluation Patients normal speech pattern is hoarse and rough, and at times is hard to understand. She states that her voice has been like this since the even prior to her stroke. She stated that she hasn't had any trouble swallowing but that she receives speech therapy at home to strengthen vocal control. Addendum: 01/26/19 at 1124 by ELE Jackson RN Amended: Links added.
[2019-01-26] MEDS: PROCARDIA PO SCH (08:17)
[2019-01-26] MEDS: KEPPRA PO SCH ×2 (08:17→20:51)
[2019-01-26] MEDS: LOVENOX SQ SCH (08:27)
--- NOTE | 2019-01-26 08:28 | DIREP ---
PROCEDURE:CHEST 1 VIEW COMPARISON:[facility], CR, XRAY CHEST SINGLE VW, 01/25/2019, 08:03 AM. [facility], CR, XRAY CHEST SINGLE VW, 01/25/2019, 05:02 AM. INDICATIONS:Eval CHF and pneumonia. FINDINGS: LUNGS/PLEURA:Interval removal of ETT. Right basilar infiltrate. Diffuse interstitial prominence, right greater the left. Mild left basilar atelectasis. VASCULATURE:Prominent pulmonary vasculature. Calcified aortic arch. CARDIAC:Normal. No cardiac silhouette abnormality or cardiomegaly. MEDIASTINUM:Mild degenerative change without evidence of acute osseus abnormality. BONES:Normal. No fracture or visible bony lesion. OTHER:Interval removal of nasogastric catheter. CONCLUSION: 1. Interval development of right basilar infiltrate. 2. Findings related to CHF/fluid overload. 3. Interval removal of ET tube and NG catheter. Dictated by: Jm Bright MD on 01/26/2019 at 08:23 AM
[2019-01-26] MEDS ORDERED: MORPHINE SULFATE IV PRN (08:30)
[2019-01-26] MEDS ORDERED: SODIUM BICARBONATE IV STA (08:35)
[2019-01-26] MEDS ORDERED: [UNRECOGNIZED DRUG - OTHER] IV STA (08:35)
[2019-01-26] MEDS ORDERED: PLAVIX PO SCH (09:00)
--- NOTE | 2019-01-26 09:35 | NUR ---
Dr. Shanna Otero at bedside assessing patient. No new orders received.
--- NOTE | 2019-01-26 10:00 | NUR ---
DISCHARGE PLAN CASE MANAGEMENT VISITED WITH PATIENT CONCERNING DISCHARGE PLAN AND NEEDS. LIVES AT HOME ALONE. HAS DME INCLUDING WALKER AND SHOWER CHAIR. DENIES NEED FOR HOME OXYGEN. CURRENTLY HAS [facility] IN PLACE. IS ALSO WORKING WITH [facility] FOR PROVIDER SERVICES. DR. SWARTZ IS PCP. HAS FINANCIAL ABILITY TO PAY FOR MEDICATIONS UPON DISCHARGE IF NEEDED. DISCHARGE GOAL IS TO DISCHARGE HOME AND [facility] TO FOLLOW. DENIES FURTHER NEEDS AT THIS TIME.
--- NOTE | 2019-01-26 10:17 | PCM.EKG ---
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: RT : 1950 Requested By: TERRENCE OTERO Order Number: [id number] Reading MD: Terrence Otero Measurements Intervals [place] Rate: 90 P: 74 RI: 168 QRS: 63 QRSD: 92 T: 196 QT: 370 QTc: 452 Interpretive Statements Normal sinus rhythm Left ventricular hypertrophy with repolarization abnormality Abnormal ECG Compared to ECG 01/25/2019 16:03:26 Left ventricular hypertrophy now present Early repolarization now present Ventricular premature complex(es) no longer present T-wave abnormality no longer present Possible ischemia no longer present Prolonged QT interval no longer present Electronically Signed On 01-29-2019 16:49:32 ROUTE AIDE by Terrence Otero Please click the below link to view image of tracing.
[2019-01-26] MEDS: KLOR-CON 10 PO SCH (11:33)
--- NOTE | 2019-01-26 11:47 | NUR ---
Karine Lawrence with Speech therapy at bedside for swallow evaluation.
--- NOTE | 2019-01-26 15:23 | NUR ---
Status O2 sat dropping to 84% on 5L via NC. Respiratory rate of 32. Kaycee with RT at bedside. Dr. Villegas notified. New orders received for Lasix 40mg 16 IV x3 doses and to reassess status and urine output in 1 hour. RBTO.
[2019-01-26] MEDS ORDERED: LASIX ONE (15:25)
[2019-01-26] MEDS ORDERED: LASIX IV SCH (15:30)
--- NOTE | 2019-01-26 15:32 | NUR ---
Dr. Shanna Otero at bedside. New orders received for stat ABG. RBVO.
[2019-01-26 15:43] LABS: ABG PCO2 32.9 mmHg (35.0-45.0); ABG PH 7.336 (7.350-7.450); BE(B) -7.7 mmol/L (-2.0-2.0); HCO3act 17.2 mmol/L (22.0-26.0)
[2019-01-26] MEDS: NITROGLYCERIN 25MG/D5W 250ML 250 ML IV SCH (16:02)
--- NOTE | 2019-01-26 16:09 | NUR ---
Dr. Shanna Otero at bedside. New order received to start Nitroglycerin gtt at 20cc/hr and to administer 25mg losartan PO x1. Blood pressure 136/74. Dr. Otero aware. RBVO.
[2019-01-26] MEDS ORDERED: COZAAR ONE (16:17)
[2019-01-26] MEDS ORDERED: COZAAR PO STA ×2 (16:26)
--- NOTE | 2019-01-26 17:30 | NUR ---
Dr. Nelly Villegas at bedside assessing patient. No new orders received.
--- NOTE | 2019-01-26 18:12 | NUR ---
Lasix Clarified lasix dosage with Dr. Villegas. No new orders received.
--- NOTE | 2019-01-26 18:35 | NUR ---
Report Received report assumed care of patient. Patient alert to verbal stimuli. Oriented to person,place,time. Denies any wants or needs at this time. No s/s of distress noted. Call light in reach.
--- NOTE | 2019-01-26 18:45 | DIREP ---
PROCEDURE:CHEST 1 VIEW COMPARISON:[facility], CR, XRAY CHEST SINGLE VW, 01/26/2019, 07:58 AM. INDICATIONS:SHORTNESS OF BREATH FINDINGS: LUNGS/PLEURA:Partial clearing of patchy airspace opacity in the right lung base. Streaky retrocardiac infiltrate may reflect atelectasis or developing infiltrate. Interstitial scarring noted in the lungs. No pneumothorax. VASCULATURE:Normal. Unremarkable pulmonary vasculature. CARDIAC:Borderline cardiomegaly MEDIASTINUM:Atherosclerotic aorta with no visible aneurysm. BONES:Normal. No fracture or visible bony lesion. OTHER:Negative. CONCLUSION: 1. Partial clearing of right lower lung zone airspace disease. 2. Streaky retrocardiac left lower lobe infiltrate may be new from prior. 3. Interstitial scarring. Dictated by: Sergio Mcgowan M.D. on 01/26/2019 at 06:43 PM
[2019-01-26] MEDS: APRESOLINE PO SCH (20:51)
[2019-01-26] MEDS: LIPITOR PO SCH (20:52)
--- NOTE | 2019-01-26 21:35 | NUR ---
Early mobility Patient excluded due to nitro drip.
[2019-01-26] MEDS: LASIX IV SCH ×2 (22:22→22:23)
[2019-01-27] VITALS (101 sets, daily range): BP systolic 50–181; BP diastolic 32–120
[2019-01-27] MEDS: SOLU-MEDROL IV SCH ×2 (00:09→05:29)
[2019-01-27] MEDS: DUONEB 0.5 MG-3 MG/3 ML SOLN IH SCH ×6 (00:43→20:28)
[2019-01-27] MEDS: TYLENOL PO PRN ×2 (01:03→13:42)
--- NOTE | 2019-01-27 01:10 | CNH ---
DATE OF CONSULTATION: 01/26/2019 PRIMARY PHYSICIAN: Dr. Villegas. CHIEF COMPLAINT: Acute shortness of breath and chest pain and indigestion and feeling progressive dyspnea for over a year. HISTORY OF PRESENT ILLNESS: The patient is a 68-year-old white female who is a primary patient of Dr. Carrillo and she has history of COPD, hypertension, questionable history of diabetes and she has had two strokes in 2017 and 2018, seem to be more of a TIA manifestation without any residual motor weakness and she has been feeling poorly for last over a week and presented with shortness of breath and was found to be in acute respiratory failure requiring intubation on the artificial flower maker hours of 01/25/2019 at 3:00 a.m. and was managed on ventilator. When I saw her, she was extubated. She was doing well, has underlying COPD and has been on nebulizer treatment along with other medications. At the present time, she has EKG changes which are suggestive of significant left ventricular hypertrophy with some marked ST-T wave changes with marked T inversions along with troponin elevation and has history of TIAs and dyslipidemia with an LDL of 163 and underlying history of significant coronary artery disease with troponin elevation and suggestion of non-ST elevation myocardial infarction cannot be fully excluded, hence, cardiac consultation sought for an evaluation. ALLERGIES: CODEINE. MEDICATIONS: She has seen Dr. Carrillo and has seen Dr. Phillips and her medications are albuterol HFA q.6 hours, Singulair 10 mg once a day, trazodone 50 mg once a day. She is on Breo Ellipta 1 puff daily, Coreg 3.125 mg twice a day, Plavix 75 mg once a day. She is on Keppra 500 mg twice a day for supposed seizure disorder and nifedipine 60 mg once a day, omeprazole 40 mg once a day, potassium 20 mEq once a day, Zoloft 100 mg once a day, simvastatin 40 mg once a day. PAST MEDICAL HISTORY: History of COPD, hypertension, peripheral arterial disease, GERD manifestations, major depressive disorder and chronic diastolic heart failure, cholecystectomy, hysterectomy. SOCIAL HISTORY: She has got about [id number] history of smoking and she was smoking until she got into the hospital. No history of any ethanol abuse. FAMILY HISTORY: Positive for heart problems. PHYSICAL EXAMINATION: GENERAL: When I saw her 170 cm and 68 kilograms and BMI 23.6. VITAL SIGNS: Stable. She has been extubated. Temperature was 97 and pulse was about 100 and respiration 14 and 155/87 blood pressure, 89 saturation on 5 liters nasal cannula. HEENT: Unremarkable. NECK: JVD discernible about 6-7 cm over the angle of [place]. No definite carotid bruit was noted. LUNGS: Emphysematous chest. Poor air entry bilaterally. No significant adventitious lung sounds were noted. HEART: S1, S2 normal. ABDOMEN: Rounded, no organomegaly. Bowel sounds present. EXTREMITIES: No significant dependent edema. NEUROLOGIC: No focal neuro deficit is documented. LABORATORY DATA: Showed a CBC being normal, hemoglobin 10.3. Her creatinine was 1.41 when she came in and her ProBNP was 16,139 and troponin was 0.76. Later on the troponin went up to 1.27 and the creatinine is still 1.43. Sugar was 143. LDL was 163. Urine was showing some protein. Blood gases have improved from a pH of 7.18 to 7.38 with a pCO2 of 26 and a pO2 of 73. This is on 32% FiO2. Lactic acid is improved from 3.7-1.9. Cultures are negative. Chest x-rays have shown bilateral infiltrate, possibility of pneumonia. IMPRESSION: Chronic obstructive pulmonary disease, bilateral pneumonia, hypertension, hypertensive heart disease, chronic diastolic heart failure, rule out non-ST elevation myocardial infarction with deep symmetrical T inversions in the inferolateral lead with EKG changes along with possibility of non-ST elevation myocardial infarction with her history of transient ischemic attack manifestations and troponin elevation. RECOMMENDATIONS: At this time, we will add losartan 25 mg once a day, aspirin 81 mg once a day. I think Lipitor is a better choice than simvastatin because of interaction with multiple medications, patient is on Keppra also and we will probably do cardiac catheterization to which she is agreeable on 01/27/2019. Echocardiogram will be done. Thank you very much for this consultation. Elda Otero MD DR: GLYNN/sania JOB# [id number]
[2019-01-27] MEDS: ZOSYN 3.375 GRAM VIAL 3.375 GM in NS 100ML 100 ML IV SCH ×2 (03:12→08:54)
[2019-01-27] MEDS: NITROGLYCERIN 25MG/D5W 250ML 250 ML IV SCH (03:15)
[2019-01-27 05:02] LABS: HEMOGLOBIN 11.2 g/dL (12.0-15.0); MEAN CELL HGB 29.7 pg (26-34); MEAN CELL HGB CONCENTRATION 32.5 g/dL (33-37); MEAN CORP VOLUME 91.5 fL (78-100); MEAN PLATELET VOLUME 11.4 fL (7.8-11.0); RED CELL DISTRIBUTION WIDTH 14.6 % (11.5-14.5); WHITE BLOOD CELL 15.7 10^3/uL (4.5-11.0)
[2019-01-27 05:30] LABS: CALCIUM 9.4 mg/dL (8.4-10.5); CARBON DIOXIDE 23.8 mmol/L (20.0-32)
[2019-01-27] MEDS: LASIX IV SCH (05:30)
[2019-01-27] MEDS ORDERED: NS 1000ML 1,000 ML ONE (06:43)
[2019-01-27] MEDS ORDERED: HEPARIN ONE (06:43)
[2019-01-27] MEDS ORDERED: XYLOCAINE ONE (06:43)
[2019-01-27] MEDS ORDERED: VERSED ONE (06:43)
[2019-01-27] MEDS ORDERED: SUBLIMAZE ONE (06:43)
[2019-01-27] MEDS: HUMULIN R SQ SCH ×4 (07:30→21:00)
--- NOTE | 2019-01-27 07:35 | NUR ---
Dr. Phyllis Ferguson at bedside. No new orders received.
--- NOTE | 2019-01-27 07:50 | PRM.PN ---
Subjective Subjective Date: Jan 27, 2019 Time: 07:42 Subjective Patient is alert and oriented and denies complaints. CATH scheduled for this AM. Labs reviewed. IV diuresis d/c. Patient breathing improving. Patient History: Unknown 33 MOTHER 33 FATHER VTE VTE Risk Total Score: >5 VTE Risk Score VTE Risk: Score 0-1 = Low Risk (Aggressive mobilization; early ambulation; no VTE prophylaxis required) Score 2: Moderate Risk (Intermittent/Pneumatic Compression Device OR Lovenox/Heparin/Coumadin) Score 3-4: High Risk (Intermittent/Pneumatic Compression Device AND Lovenox/Heparin/Coumadin) Score > or =5: Highest Risk (Intermittent/Pneumatic Compression Device AND Lovenox/Heparin/Coumadin) Antico:Hep/LMWH/Coum/Xarelto: No Mechanical device ordered: Yes Reasons not ordering prophylax: At risk for falls Review of Systems Allergies: Coded Allergies: codeine (Verified Allergy, Unknown, 03/29/17) Scheduled Albuterol Sulfate (Ventolin Hfa), 18 GM IH Q6HR, (Reported) Carvedilol 3.125MG (Coreg 3.125MG), 1 TAB PO BID, (Reported) Clopidogrel Bisulfate (Plavix), 1 TAB PO DAILY, (Reported) Levetiracetam (Keppra), 500 MG PO BID Montelukast Sodium (Montelukast Sodium), 1 TAB PO HS, (Reported) Nifedipine (Nifedipine Er), 90 MG PO DAILY24, (Reported) Omeprazole (Omeprazole), 40 MG PO DAILY24, (Reported) Potassium Chloride (Potassium Chloride), 20 MEQ PO DAILY24 Sertraline Hcl (Zoloft), 1 TAB PO DAILY, (Reported) Simvastatin (Simvastatin), 1 TAB PO HS Trazodone Hcl (Trazodone Hcl), 1.5 TAB PO HS, (Reported) Umeclidinium Brm/Vilanterol Tr (Anoro Ellipta 62.5-25 Mcg INH), 1 EACH IH DAILY24, (Reported) Objective Vitals and I/O Vital Sign - Last 24 Hours 01/25/19 01/25/19 01/25/19 01/25/19 08:00 08:05 08:15 08:30 Temp 36.7 36.7 36.7 98.1 98.1 98.1 Pulse 58 57 62 67 Resp 15 15 17 16 B/P (MAP) 134/64 (87) 135/68 (90) 173/92 (119) Pulse Ox 99 99 99 99 FiO2 45 01/25/19 01/25/19 01/25/19 01/25/19 08:45 09:00 09:05 09:05 Temp 36.7 36.8 98.1 98.2 Pulse 56 56 58 55 Resp 15 15 15 15 B/P (MAP) 167/72 (103) 131/68 (89) Pulse Ox 100 99 97 99 01/25/19 01/25/19 01/25/19 01/25/19 09:15 09:30 09:45 10:00 Temp 36.8 36.8 36.8 36.8 98.2 98.2 98.2 98.2 Pulse 57 62 55 57 Resp 16 15 16 B/P (MAP) 141/70 (93) 136/59 (84) 145/64 (91) 133/67 (89) Pulse Ox 99 98 97 95 01/25/19 01/25/19 01/25/19 01/25/19 10:10 10:15 10:30 10:42 Temp 36.7 36.7 98.1 98.1 Pulse 55 56 58 Resp 15 17 16 B/P (MAP) 152/72 (98) 158/69 (98) 168/76 Pulse Ox 98 96 98 FiO2 30 01/25/19 01/25/19 01/25/19 01/25/19 10:45 11:00 11:15 11:30 Temp 36.7 36.7 36.7 36.8 98.1 98.1 98.1 98.2 Pulse 54 57 60 65 Resp 15 16 15 15 B/P (MAP) 162/64 (96) 168/76 (106) 172/74 (106) 178/79 (112) Pulse Ox 95 97 97 96 01/25/19 01/25/19 01/25/19 01/25/19 11:45 12:00 12:00 12:00 Temp 36.8 36.8 98.2 98.2 Pulse 66 56 66 Resp 16 18 B/P (MAP) 153/85 (107) 166/76 (106) Pulse Ox 96 99 96 O2 Delivery Mechanical Ventilator FiO2 30 01/25/19 01/25/19 01/25/193/19 12:15 12:30 12:40 12:40 Temp 36.9 36.9 98.4 98.4 Pulse 67 74 72 72 B/P (MAP) 175/79 (111) 174/84 (114) 180/83 Pulse Ox 95 95 94 01/25/19 01/25/19 01/25/19 01/25/19 12:40 12:40 12:45 13:00 Temp 36.9 98.4 Pulse 70 70 74 68 Resp 20 12 24 B/P (MAP) 176/84 (114) Pulse Ox 94 94 95 95 FiO2 30 28 01/25/19 01/25/19 01/25/19 01/25/19 13:00 13:15 13:16 13:20 Temp 37.0 37.1 37.1 98.6 98.8 98.8 Pulse 67 73 74 72 Resp 16 B/P (MAP) 180/83 (115) 167/71 (103) Pulse Ox 94 95 96 95 FiO2 28 01/25/19 01/25/19 01/25/19 01/25/19 13:30 13:45 13:53 14:00 Temp 37.2 37.3 37.3 37.3 99.0 99.1 99.1 99.1 Pulse 65 70 68 64 B/P (MAP) 148/60 (89) 139/101 (114) 147/64 (91) 149/69 (95) Pulse Ox 94 95 95 94 01/25/19 01/25/19 01/25/19 01/25/19 14:15 14:30 14:45 15:00 Temp 37.4 37.4 37.3 37.3 99.3 99.3 99.1 99.1 Pulse 66 77 76 75 Resp 20 16 19 B/P (MAP) 147/67 (93) 125/60 (81) 119/60 (79) 124/64 (84) Pulse Ox 95 94 95 94 01/25/19 01/25/19 01/25/19 01/25/19 15:15 15:30 15:45 16:00 Temp 37.3 37.3 37.3 37.3 99.1 99.1 99.1 99.1 Pulse 83 79 77 78 Resp 19 19 25 18 B/P (MAP) 126/61 (82) 118/56 (76) 127/63 (84) 99/53 (68) Pulse Ox 94 93 95 95 01/25/19 01/25/19 01/25/19 01/25/19 16:00 16:15 16:30 16:45 Temp 37.3 37.3 37.3 99.1 99.1 99.1 Pulse 81 76 77 Resp 17 17 13 B/P (MAP) 132/63 (86) 147/59 (88) 143/86 (105) Pulse Ox 95 95 95 O2 Delivery Nasal Cannula O2 Flow Rate 2.00 01/25/19 01/25/19 01/25/19 01/25/19 17:00 17:06 17:15 17:30 Temp 37.3 37.3 37.3 37.3 99.1 99.1 99.1 99.1 Pulse 75 76 79 80 Resp 10 13 19 17 B/P (MAP) 146/115 (125) 142/72 (95) 146/75 (98) 128/66 (86) Pulse Ox 97 93 95 96 01/25/19 01/25/19 01/25/19 01/25/19 17:45 18:00 18:10 18:10 Temp 37.4 37.4 99.3 99.3 Pulse 80 80 75 80 Resp 18 19 16 16 B/P (MAP) 146/63 (90) 148/62 (90) Pulse Ox 95 96 97 98 01/25/19 01/25/19 01/25/19 01/25/19 18:15 18:30 19:00 19:00 Temp 37.3 37.3 37.3 99.1 99.1 99.1 Pulse 80 79 77 Resp 17 23 29 B/P (MAP) 151/65 (93) 165/73 (103) 154/112 (126) Pulse Ox 96 96 96 O2 Delivery Nasal Cannula O2 Flow Rate 2.00 01/25/19 01/25/19 01/25/19 01/25/19 19:15 19:30 19:45 20:00 Temp 37.2 37.2 37.3 99.0 99.0 99.1 Pulse 82 76 77 79 Resp 22 11 11 18 B/P (MAP) 146/76 (99) 147/56 (86) 159/78 (105) Pulse Ox 96 96 96 98 O2 Delivery Nasal Cannula O2 Flow Rate 2.00 FiO2 28 01/25/19 01/25/19 01/25/19 01/25/19 20:00 20:00 20:15 20:15 Temp 37.3 37.2 99.1 99.0 Pulse 79 80 81 80 Resp 18 18 18 12 B/P (MAP) 161/78 (105) Pulse Ox 98 96 99 98 01/25/19 01/25/19 01/25/19 01/25/19 20:30 20:45 21:00 21:05 Pulse 83 82 89 98 Resp 11 23 15 B/P (MAP) 165/77 (106) 142/65 (90) 153/62 Pulse Ox 99 98 98 01/25/19 01/25/19 01/25/19 01/25/19 21:15 21:30 21:45 22:00 Pulse 91 95 97 100 Resp 18 18 40 15 B/P (MAP) 153/62 (92) 173/97 (122) Pulse Ox 98 99 97 95 01/25/19 01/25/19 01/25/19 01/25/19 22:15 22:30 22:45 23:00 Pulse 96 95 91 96 Resp 14 20 15 19 B/P (MAP) 162/83 (109) 150/79 (102) Pulse Ox 98 97 99 97 01/25/19 01/25/19 01/25/19 01/25/19 23:00 23:13 23:15 23:30 Pulse 96 93 101 Resp 21 20 B/P (MAP) 160/74 160/74 (102) Pulse Ox 98 97 O2 Delivery Nasal Cannula O2 Flow Rate 2.00 01/25/19 01/26/19 01/26/19 01/26/19 23:45 00:00 00:15 00:45 Pulse 92 95 101 110 Resp 14 20 12 12 B/P (MAP) 138/61 (86) Pulse Ox 96 97 96 93 01/26/19 01/26/19 01/26/19 01/26/19 01:00 01:10 01:15 01:21 Pulse 115 107 106 102 Resp 16 28 24 21 B/P (MAP) 171/96 (121) 159/86 (110) Pulse Ox 93 88 91 89 01/26/19 01/26/19 01/26/19 01/26/19 01:30 01:30 01:45 02:00 Pulse 114 118 116 122 Resp 18 30 19 B/P (MAP) 176/94 (121) 171/96 Pulse Ox 93 88 92 01/26/19 01/26/19 01/26/19 01/26/19 02:00 02:15 02:30 02:45 Pulse 117 123 118 109 Resp 14 16 17 23 B/P (MAP) 145/52 (83) 119/62 (81) Pulse Ox 92 91 89 90 01/26/19 01/26/19 01/26/19 01/26/19 03:00 03:15 03:30 03:45 Pulse 116 117 111 112 Resp 24 20 17 11 B/P (MAP) 137/70 (92) 146/76 (99) 124/59 (80) 126/59 (81) Pulse Ox 88 86 86 86 01/26/19 01/26/19 01/26/19 01/26/19 04:00 04:00 04:15 04:30 Temp 99.4 99.4 Pulse 107 102 102 Resp 17 16 15 B/P (MAP) 123/50 (74) 116/52 (73) 120/59 (79) Pulse Ox 86 89 88 O2 Delivery Nasal Cannula O2 Flow Rate 2.00 01/26/19 01/26/19 01/26/19 01/26/19 04:45 04:45 05:00 05:00 Pulse 106 103 105 104 Resp 15 18 16 16 B/P (MAP) 125/59 (81) 119/49 (72) Pulse Ox 89 88 89 93 01/26/19 01/26/19 01/26/19 01/26/19 05:15 05:30 05:45 06:00 Pulse 105 102 89 89 Resp 16 19 17 14 B/P (MAP) 119/56 (77) 127/64 (85) 127/56 (79) 126/59 (81) Pulse Ox 92 89 91 92 Intake and Output 01/25/19 01/25/19 01/26/19 14:59 22:59 06:59 Intake Total 2244 ml Output Total 800 ml 400 ml Balance -800 ml 1844 ml General: Alert, Oriented X3, Cooperative, No acute distress HEENT: Atraumatic, PERRLA, EOMI, Mucous membr. moist/pink Neck: Supple, No JVD Lungs: Clear to auscultation, Normal air movement Heart: Normal S1, Normal S2 Abdomen: Normal bowel sounds, Soft Extremities: No clubbing, No cyanosis, Normal pulses, No tenderness/swelling Skin: No rashes, No breakdown, No significant lesion Neuro: Normal speech, Strength at 5/5 X4 ext, Normal tone, Sensation intact, Cranial nerves 3-12 NL Psych/Mental Status: Mental status NL, Mood NL All Results(Lab/Rad) Laboratory Tests Test 01/25/19 08:00 01/25/19 13:10 01/25/19 13:35 01/25/19 18:50 Blood Gas Sample Site LEFT BRACHIAL ARTRY Blood Gas pH 7.331 Blood Gas PCO2 35.6 mmHg Blood Gas PO2 107.4 mmHg Blood Gas HCO3 18.4 mmol/L Blood Gas Base Excess -6.8 mmol/L Jose Test N/A Arterial Blood Oxygen Saturation 96.8 % Deoxyhemoglobin 3.2 % Carboxyhemoglobin 0.6 % Methemoglobin 0.3 % Total Hemoglobin 11.3 % Total Oxygen Concentration 15.4 % Lactic Acid (Blood Gas) 1.2 MMOL/L Blood Gas Temperature 37 Blood Gas Vent Mode SIMV Blood Gas Vent Rate 15 FiO2 45 % Blood Gas Tidal Volume 450 ML Blood Gas PEEP 5 CMH2O Blood Gas Pressure Support 10 CMH2O Bicarbonate 19.5 mmol/L White Blood Count 10.6 10^3/uL Red Blood Count 3.98 10^6/uL Hemoglobin 11.8 g/dL Hematocrit 35.2 % Mean Corpuscular Volume 88.4 fL Mean Corpuscular Hemoglobin 29.6 pg Mean Corpuscular Hemoglobin Concent 33.5 g/dL Red Cell Distribution Width 14.2 % Platelet Count 242 10^3/uL Mean Platelet Volume 11.1 fL Neutrophils (%) (Auto) 90.9 % Lymphocytes (%) (Auto) 6.2 % Monocytes (%) (Auto) 1.7 % Neutrophils # (Auto) 9.7 10^3/uL Lymphocytes # (Auto) 0.7 10^3/uL Monocytes # (Auto) 0.2 10^3/uL Absolute Immature Granulocyte (auto 0.03 10^3 u/L Eosinophils % 0.6 % Basophils % 0.3 % Basophils # 0.0 10^3/uL Eosinophil Count 0.1 10^3/uL Troponin I 1.27 ng/mL 0.90 ng/mL Pro-B-Type Natriuretic Peptide 08377 pg/mL Percent Immature Gran (Cell Imm) 0.30 % Differential Total Cells Counted 100 #CELLS Segmented Neutrophils 92 % Band Neutrophils 1 % Lymphocytes 7 % Platelet Morphology NORMAL Poikilocytosis 1+ Anisocytosis 1+ Test 01/26/19 01:31 01/26/19 04:50 01/26/19 04:58 01/26/19 05:32 Vancomycin Level Trough 22.8 ug/mL Blood Gas Sample Site RT BRACIAL ARTERY Blood Gas pH 7.386 Blood Gas PCO2 26.3 mmHg Blood Gas PO2 73.0 mmHg Blood Gas HCO3 15.4 mmol/L Blood Gas Base Excess -8.2 mmol/L Jose Test N/A Arterial Blood Oxygen Saturation 93.5 % Deoxyhemoglobin 6.4 % Carboxyhemoglobin 1.1 % Methemoglobin 0.5 % Total Hemoglobin 11.0 % Total Oxygen Concentration 14.3 % Lactic Acid (Blood Gas) 1.9 MMOL/L Blood Gas Temperature 37.0 Oxygen Delivery Method (LAB) NASAL CANNULA FiO2 0.32 % Bicarbonate 16.2 mmol/L White Blood Count 10.8 10^3/uL Red Blood Count 3.42 10^6/uL Hemoglobin 10.3 g/dL Hematocrit 30.7 % Mean Corpuscular Volume 89.8 fL Mean Corpuscular Hemoglobin 30.1 pg Mean Corpuscular Hemoglobin Concent 33.6 g/dL Red Cell Distribution Width 14.2 % Platelet Count 225 10^3/uL Mean Platelet Volume 11.1 fL Neutrophils (%) (Auto) 89.8 % Lymphocytes (%) (Auto) 6.2 % Monocytes (%) (Auto) 3.8 % Neutrophils # (Auto) 9.7 10^3/uL Lymphocytes # (Auto) 0.7 10^3/uL Monocytes # (Auto) 0.4 10^3/uL Absolute Immature Granulocyte (auto 0.02 10^3 u/L Eosinophils % 0.0 % Basophils % 0.0 % Basophils # 0.0 10^3/uL Eosinophil Count 0.0 10^3/uL Sodium Level 139 mmol/L Potassium Level 3.4 mmol/L Chloride Level 108.0 mmol/L Carbon Dioxide Level 18.9 mmol/L Anion Gap 15.5 Blood Urea Nitrogen 21 mg/dL Creatinine 1.43 mg/dL Estimated GFR () 44.3 BUN/Creatinine Ratio 14.0 Glucose Level 143 mg/dL Hemoglobin A1c 5.8 % Calcium Level 9.2 mg/dL Total Bilirubin 0.3 mg/dL Aspartate Amino Transf (AST/SGOT) 19 U/L Alanine Aminotransferase (ALT/SGPT) 11 U/L Alkaline Phosphatase 110 U/L Total Protein 6.2 g/dL Albumin 2.7 g/dL Globulin 3.5 Triglycerides Level 64 mg/dL Cholesterol Level 223 mg/dL LDL Cholesterol, Calculated 163.2 VLDL Cholesterol 12.8 HDL Cholesterol 47 mg/dL Cholesterol Ratio (LDL/HDL) 4.955370 Percent Immature Gran (Cell Imm) 0.20 % Differential Total Cells Counted 100 #CELLS Segmented Neutrophils 84 % Lymphocytes 14 % Monocytes 2 % Current Medications Medications (Trade) Dose Ordered Sig/Jacques Route PRN Reason Start Time Stop Time Status Last Admin Dose Admin Propofol 100 ml @ ud STK-MED ONCE IV 01/25/19 01:10 01/25/19 01:12 DC Propofol (Diprivan) 200 mg STK-MED ONCE IV 01/25/19 01:10 01/25/19 01:12 DC Sodium Chloride 1,000 ml @ 0 mls/hr Q0M STAT IV 01/25/19 01:31 01/25/19 01:34 DC 01/25/19 01:48 Albuterol/ Ipratropium (Duoneb 0.5 Mg-3 Mg/3 ml Soln) 3 ml STK-MED ONCE IH 01/25/19 01:35 01/25/19 01:36 DC Albuterol Sulfate (Ventolin) 2.5 mg STK-MED ONCE IH 01/25/19 01:35 01/25/19 01:36 DC Albuterol/ Ipratropium (Duoneb 0.5 Mg-3 Mg/3 ml Soln) 3 ml STAT STAT IH 01/25/19 01:58 01/25/19 02:00 DC 01/25/19 02:07 Albuterol Sulfate (Ventolin) 2.5 mg STAT STAT IH 01/25/19 01:58 01/25/19 02:00 DC 01/25/19 02:07 Vancomycin HCl 900 mg/Sodium Chloride 100 ml @ 100 mls/hr Q8H IV 01/25/19 02:30 01/25/19 08:38 DC 01/25/19 03:09 Piperacillin Sod/ Tazobactam Sod 3.375 gm/Sodium Chloride 100 ml @ 100 mls/hr Q6H IV 01/25/19 02:30 02/24/19 02:29 01/26/19 02:30 Albuterol/ Ipratropium (Duoneb 0.5 Mg-3 Mg/3 ml Soln) 3 ml RTQ4 IH 01/25/19 05:00 02/24/19 04:59 01/26/19 05:37 Enoxaparin Sodium (Lovenox) 40 mg DAILY SQ 01/25/19 09:00 02/24/19 08:59 01/25/19 09:00 Pantoprazole Sodium (Protonix Iv) 40 mg DAILY IV 01/25/19 09:00 02/24/19 08:59 01/25/19 09:00 Propofol (Diprivan) 1,000 mg PRN PRN IV SEDATION 01/25/19 03:00 02/24/19 02:59 01/25/19 07:07 Sodium Chloride 1,000 ml @ 125 mls/hr Q8H IV 01/25/19 03:30 02/24/19 03:29 01/26/19 00:18 Sodium Chloride 100 ml @ ud STK-MED ONCE IV 01/25/19 03:11 01/25/19 03:12 DC Sodium Chloride 2,000 ml @ ud STK-MED ONCE .ROUTE 01/25/19 03:11 01/25/19 03:12 DC Sodium Chloride 250 ml @ ud STK-MED ONCE IV 01/25/19 03:11 01/25/19 03:12 DC Vancomycin HCl 1 ml @ ud STK-MED ONCE .ROUTE 01/25/19 03:11 01/25/19 03:13 DC Piperacillin Sod/ Tazobactam Sod (Zosyn 3.375 Gram Vial) 3.375 gm STK-MED ONCE IV 01/25/19 03:12 01/25/19 03:13 DC Sterile Water (Water) 1,000 ml STK-MED ONCE .ROUTE 01/25/19 06:54 01/25/19 06:55 DC Sodium Chloride 100 ml @ ud STK-MED ONCE IV 01/25/19 07:31 01/25/19 07:32 DC Piperacillin Sod/ Tazobactam Sod (Zosyn 3.375 Gram Vial) 3.375 gm STK-MED ONCE IV 01/25/19 07:31 01/25/19 07:32 DC Pantoprazole Sodium (Protonix Iv) 40 mg STK-MED ONCE IV 01/25/19 07:35 01/25/19 07:36 DC Enoxaparin Sodium (Lovenox) 40 mg STK-MED ONCE SQ 01/25/19 07:35 01/25/19 07:37 DC Vancomycin HCl 0.9 gm/Sodium Chloride 250 ml @ 175 mls/hr Q8H IV 01/25/19 10:00 01/26/19 07:49 DC 01/25/19 18:00 Sodium Chloride 500 ml @ ud STK-MED ONCE IV 01/25/19 09:05 01/25/19 09:06 DC Sodium Chloride 500 ml @ 500 mls/hr Q1H ONCE IV 01/25/19 09:30 01/25/19 10:29 DC 01/25/19 09:09 Methylprednisolone Sodium Succinate (Solu-Medrol) 60 mg Q6 IV 01/25/19 09:30 02/24/19 09:29 01/26/19 05:59 Insulin Human Regular (Humulin R) Give 30 minutes before meal ACHS SQ 01/25/19 11:30 01/25/19 20:45 DC Dextrose (Dextrose 50%-Water Syringe) 25 ml STAT PRN IV [id number] 01/25/19 10:00 02/24/19 09:59 Insulin Glargine (Lantus) 20 unit HS SQ 01/25/19 10:00 02/24/19 09:59 Future Hold 01/25/19 09:54 Furosemide (Lasix) 20 mg STK-MED ONCE .ROUTE 01/25/19 10:30 01/25/19 10:31 DC Furosemide (Lasix) 20 mg OT ONCE IV 01/25/19 11:00 01/25/19 11:01 DC 01/25/19 10:42 Carvedilol (Coreg) 3.125 mg BID PO 01/25/19 21:00 01/26/19 07:49 DC 01/25/19 21:05 Clopidogrel Bisulfate (Plavix) 75 mg DAILY PO 01/26/19 09:00 02/25/19 08:59 Levetiracetam (Keppra) 500 mg BID PO 01/25/19 12:31 02/24/19 12:30 01/25/19 21:05 Nifedipine (Procardia) 30 mg BID PO 01/25/19 12:00 02/24/19 11:59 01/25/19 21:05 Pantoprazole Sodium (Protonix) 40 mg DAILY PO 01/25/19 12:28 01/25/19 12:55 DC Potassium Chloride (Klor-Con 10) 20 meq DAILY24 PO 01/25/19 12:00 02/24/19 11:59 01/25/19 12:00 Sertraline HCl (Zoloft) 100 mg DAILY PO 01/26/19 09:00 02/25/19 08:59 Simvastatin (Zocor) 40 mg HS PO 01/25/19 21:00 02/24/19 20:59 01/25/19 21:05 Hydralazine HCl (Apresoline) 10 mg Q4HR PRN IV HYPERTENSION 01/25/19 12:30 02/24/19 12:29 01/25/19 23:13 Hydralazine HCl (Apresoline) 10 mg STK-MED ONCE .ROUTE 01/25/19 12:29 01/25/19 12:31 DC Hydralazine HCl (Apresoline) 20 mg STK-MED ONCE .ROUTE 01/25/19 12:31 01/25/19 12:32 DC Aspirin (Aspirin) 81 mg DAILY PO 01/25/19 13:00 02/24/19 12:59 01/25/19 13:00 Insulin Human Regular (Humulin R) Give 30 minutes before meal ACHS SQ 01/25/19 21:00 02/24/19 20:59 01/25/19 21:00 Ibuprofen (Motrin) 800 mg Q6H PRN PO PAIN 01/25/19 23:30 02/24/19 23:29 01/26/19 00:10 Acetaminophen (Tylenol) 1,000 mg Q6HR PRN PO PAIN 01/26/19 00:30 02/25/19 00:29 01/26/19 00:33 Lorazepam (Ativan) 2 mg STK-MED ONCE .ROUTE 01/26/19 01:43 01/26/19 01:45 DC Lorazepam (Ativan) 1 mg STAT STAT IV 01/26/19 01:45 01/26/19 01:46 DC 01/26/19 01:45 Metoprolol Tartrate (Lopresser) 5 mg STK-MED ONCE .ROUTE 01/26/19 01:58 01/26/19 02:00 DC Metoprolol Tartrate (Lopresser) 5 mg STAT STAT IVP 01/26/19 02:00 01/26/19 02:13 DC 01/26/19 02:00 Morphine Sulfate (Morphine Sulfate) 4 mg STK-MED ONCE .ROUTE 01/26/19 02:48 01/26/19 02:49 DC Morphine Sulfate (Duramorph) 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 Q4H PRN IV PAIN 01/26/19 03:00 02/25/19 02:59 UNV 01/26/19 02:59 Azithromycin 500 mg/Sodium Chloride 250 ml @ 175 mls/hr Q24HRS IV 01/26/19 08:00 02/25/19 07:59 UNV Course Sepsis Screening Results: Posi: POSITIVE Sepsis Qualifier/Stage: SEPSIS RISK Duration or Total Time Spent w: 90 Vitals & review Data Vital Sign - Last 24 Hours 01/25/19 01/25/19 01/25/19 01/25/19 08:00 08:05 08:15 08:30 Temp 36.7 36.7 36.7 98.1 98.1 98.1 Pulse 58 57 62 67 Resp 15 15 17 16 B/P (MAP) 134/64 (87) 135/68 (90) 173/92 (119) Pulse Ox 99 99 99 99 FiO2 45 01/25/19 01/25/19 01/25/19 01/25/19 08:45 09:00 09:05 09:05 Temp 36.7 36.8 98.1 98.2 Pulse 56 56 58 55 Resp 15 15 15 15 B/P (MAP) 167/72 (103) 131/68 (89) Pulse Ox 100 99 97 99 01/25/19 01/25/19 01/25/19 01/25/19 09:15 09:30 09:45 10:00 Temp 36.8 36.8 36.8 36.8 98.2 98.2 98.2 98.2 Pulse 57 62 55 57 Resp 16 15 16 B/P (MAP) 141/70 (93) 136/59 (84) 145/64 (91) 133/67 (89) Pulse Ox 99 98 97 95 01/25/19 01/25/19 01/25/19 01/25/19 10:10 10:15 10:30 10:42 Temp 36.7 36.7 98.1 98.1 Pulse 55 56 58 Resp 15 17 16 B/P (MAP) 152/72 (98) 158/69 (98) 168/76 Pulse Ox 98 96 98 FiO2 30 01/25/19 01/25/19 01/25/19 01/25/19 10:45 11:00 11:15 11:30 Temp 36.7 36.7 36.7 36.8 98.1 98.1 98.1 98.2 Pulse 54 57 60 65 Resp 15 16 15 15 B/P (MAP) 162/64 (96) 168/76 (106) 172/74 (106) 178/79 (112) Pulse Ox 95 97 97 96 01/25/19 01/25/19 01/25/19 01/25/19 11:45 12:00 12:00 12:00 Temp 36.8 36.8 98.2 98.2 Pulse 66 56 66 Resp 16 18 B/P (MAP) 153/85 (107) 166/76 (106) Pulse Ox 96 99 96 O2 Delivery Mechanical Ventilator FiO2 30 01/25/19 01/25/19 01/25/19 01/25/19 12:15 12:30 12:40 12:40 Temp 36.9 36.9 98.4 98.4 Pulse 67 74 72 72 B/P (MAP) 175/79 (111) 174/84 (114) 180/83 Pulse Ox 95 95 94 01/25/19 01/25/19 01/25/19 01/25/19 12:40 12:40 12:45 13:00 Temp 36.9 98.4 Pulse 70 70 74 68 Resp 20 12 24 B/P (MAP) 176/84 (114) Pulse Ox 94 94 95 95 FiO2 30 28 01/25/19 01/25/19 01/25/19 01/25/19 13:00 13:15 13:16 13:20 Temp 37.0 37.1 37.1 98.6 98.8 98.8 Pulse 67 73 74 72 Resp 16 B/P (MAP) 180/83 (115) 167/71 (103) Pulse Ox 94 95 96 95 FiO2 28 01/25/19 01/25/19 01/25/19 01/25/19 13:30 13:45 13:53 14:00 Temp 37.2 37.3 37.3 37.3 99.0 99.1 99.1 99.1 Pulse 65 70 68 64 B/P (MAP) 148/60 (89) 139/101 (114) 147/64 (91) 149/69 (95) Pulse Ox 94 95 95 94 01/25/19 01/25/19 01/25/19 01/25/19 14:15 14:30 14:45 15:00 Temp 37.4 37.4 37.3 37.3 99.3 99.3 99.1 99.1 Pulse 66 77 76 75 Resp 20 16 19 B/P (MAP) 147/67 (93) 125/60 (81) 119/60 (79) 124/64 (84) Pulse Ox 95 94 95 94 01/25/19 01/25/19 01/25/19 01/25/19 15:15 15:30 15:45 16:00 Temp 37.3 37.3 37.3 37.3 99.1 99.1 99.1 99.1 Pulse 83 79 77 78 Resp 19 19 25 18 B/P (MAP) 126/61 (82) 118/56 (76) 127/63 (84) 99/53 (68) Pulse Ox 94 93 95 95 01/25/19 01/25/19 01/25/19 01/25/19 16:00 16:15 16:30 16:45 Temp 37.3 37.3 37.3 99.1 99.1 99.1 Pulse 81 76 77 Resp 17 17 13 B/P (MAP) 132/63 (86) 147/59 (88) 143/86 (105) Pulse Ox 95 95 95 O2 Delivery Nasal Cannula O2 Flow Rate 2.00 01/25/19 01/25/19 01/25/19 01/25/19 17:00 17:06 17:15 17:30 Temp 37.3 37.3 37.3 37.3 99.1 99.1 99.1 99.1 Pulse 75 76 79 80 Resp 11 19 19 17 B/P (MAP) 146/115 (125) 142/72 (95) 146/75 (98) 128/66 (86) Pulse Ox 97 93 95 96 01/25/19 01/25/19 01/25/19 01/25/19 17:45 18:00 18:10 18:10 Temp 37.4 37.4 99.3 99.3 Pulse 80 80 75 80 Resp 18 19 16 16 B/P (MAP) 146/63 (90) 148/62 (90) Pulse Ox 95 96 97 98 01/25/19 01/25/19 01/25/19 01/25/19 18:15 18:30 19:00 19:00 Temp 37.3 37.3 37.3 99.1 99.1 99.1 Pulse 80 79 77 Resp 17 23 29 B/P (MAP) 151/65 (93) 165/73 (103) 154/112 (126) Pulse Ox 96 96 96 O2 Delivery Nasal Cannula O2 Flow Rate 2.00 01/25/19 01/25/19 01/25/19 01/25/19 19:15 19:30 19:45 20:00 Temp 37.2 37.2 37.3 99.0 99.0 99.1 Pulse 82 76 77 79 Resp 22 11 11 18 B/P (MAP) 146/76 (99) 147/56 (86) 159/78 (105) Pulse Ox 96 96 96 98 O2 Delivery Nasal Cannula O2 Flow Rate 2.00 FiO2 28 01/25/19 01/25/19 01/25/19 01/25/19 20:00 20:00 20:15 20:15 Temp 37.3 37.2 99.1 99.0 Pulse 79 80 81 80 Resp 18 18 18 12 B/P (MAP) 161/78 (105) Pulse Ox 98 96 99 98 01/25/19 01/25/19 01/25/19 01/25/19 20:30 20:45 21:00 21:05 Pulse 83 82 89 98 Resp 11 23 15 B/P (MAP) 165/77 (106) 142/65 (90) 153/62 Pulse Ox 99 98 98 01/25/19 01/25/19 01/25/19 01/25/19 21:15 21:30 21:45 22:00 Pulse 91 95 97 100 Resp 18 18 40 15 B/P (MAP) 153/62 (92) 173/97 (122) Pulse Ox 98 99 97 95 01/25/19 01/25/19 01/25/19 01/25/19 22:15 22:30 22:45 23:00 Pulse 96 95 91 96 Resp 14 20 15 19 B/P (MAP) 162/83 (109) 150/79 (102) Pulse Ox 98 97 99 97 01/25/19 01/25/19 01/25/19 01/25/19 23:00 23:13 23:15 23:30 Pulse 96 93 101 Resp 21 20 B/P (MAP) 160/74 160/74 (102) Pulse Ox 98 97 O2 Delivery Nasal Cannula O2 Flow Rate 2.00 01/25/19 01/26/19 01/26/19 01/26/19 23:45 00:00 00:15 00:45 Pulse 92 95 101 110 Resp 14 20 12 12 B/P (MAP) 138/61 (86) Pulse Ox 96 97 96 93 01/26/19 01/26/19 01/26/19 01/26/19 01:00 01:10 01:15 01:21 Pulse 115 107 106 102 Resp 16 28 24 21 B/P (MAP) 171/96 (121) 159/86 (110) Pulse Ox 93 88 91 89 01/26/19 01/26/19 01/26/19 01/26/19 01:30 01:30 01:45 02:00 Pulse 114 118 116 122 Resp 18 30 19 B/P (MAP) 176/94 (121) 171/96 Pulse Ox 93 88 92 01/26/19 01/26/19 01/26/19 01/26/19 02:00 02:15 02:30 02:45 Pulse 117 123 118 109 Resp 14 16 17 23 B/P (MAP) 145/52 (83) 119/62 (81) Pulse Ox 92 91 89 90 01/26/19 01/26/19 01/26/19 01/26/19 03:00 03:15 03:30 03:45 Pulse 116 117 111 112 Resp 24 20 17 11 B/P (MAP) 137/70 (92) 146/76 (99) 124/59 (80) 126/59 (81) Pulse Ox 88 86 86 86 01/26/19 01/26/19 01/26/19 01/26/19 04:00 04:00 04:15 04:30 Temp 99.4 99.4 Pulse 107 102 102 Resp 17 16 15 B/P (MAP) 123/50 (74) 116/52 (73) 120/59 (79) Pulse Ox 86 89 88 O2 Delivery Nasal Cannula O2 Flow Rate 2.00 01/26/19 01/26/19 01/26/19 01/26/19 04:45 04:45 05:00 05:00 Pulse 106 103 105 104 Resp 15 18 16 16 B/P (MAP) 125/59 (81) 119/49 (72) Pulse Ox 89 88 89 93 01/26/19 01/26/19 01/26/19 01/26/19 05:15 05:30 05:45 06:00 Pulse 105 102 89 89 Resp 16 19 17 14 B/P (MAP) 119/56 (77) 127/64 (85) 127/56 (79) 126/59 (81) Pulse Ox 92 89 91 92 Intake and Output 01/25/19 01/25/19 01/26/19 14:59 22:59 06:59 Intake Total 2244 ml Output Total 800 ml 400 ml Balance -800 ml 1844 ml Laboratory Tests Test 01/25/19 01:10 01/25/19 01:15 01/25/19 01:31 01/25/19 02:12 Blood Gas Sample Site LEFT RADIAL ARTERY Blood Gas pH 7.188 Blood Gas PCO2 46.6 mmHg Blood Gas PO2 179.8 mmHg Blood Gas HCO3 17.3 mmol/L Blood Gas Base Excess -10.7 mmol/L Jose Test POSITIVE Arterial Blood Oxygen Saturation 98.5 % Deoxyhemoglobin 1.4 % Carboxyhemoglobin 5.0 % Methemoglobin 0.4 % Total Hemoglobin 13.3 % Total Oxygen Concentration 17.8 % Lactic Acid (Blood Gas) 3.7 MMOL/L Blood Gas Temperature 37.0 Oxygen Delivery Method (LAB) VENT Blood Gas Vent Mode SIMV Blood Gas Vent Rate 15 FiO2 0.75 % Blood Gas Tidal Volume 450 ML Blood Gas PEEP 5.0 CMH2O Blood Gas Pressure Support 10 CMH2O Bicarbonate 18.7 mmol/L Sodium Level 142 mmol/L Potassium Level 3.6 mmol/L Chloride Level 105.0 mmol/L Carbon Dioxide Level 21.1 mmol/L Anion Gap 19.5 Blood Urea Nitrogen 19 mg/dL Creatinine 1.41 mg/dL Estimated GFR () 45.0 BUN/Creatinine Ratio 13.0 Glucose Level 245 mg/dL Calcium Level 9.4 mg/dL Total Bilirubin 0.2 mg/dL Aspartate Amino Transf (AST/SGOT) 15 U/L Alanine Aminotransferase (ALT/SGPT) 10 U/L Alkaline Phosphatase 158 U/L Total Creatine Kinase 59 U/L Troponin I 0.76 ng/mL Total Protein 7.3 g/dL Albumin 3.1 g/dL Globulin 4.2 White Blood Count 9.0 10^3/uL Red Blood Count 4.17 10^6/uL Hemoglobin 12.4 g/dL Hematocrit 37.6 % Mean Corpuscular Volume 90.2 fL Mean Corpuscular Hemoglobin 29.7 pg Mean Corpuscular Hemoglobin Concent 33.0 g/dL Red Cell Distribution Width 14.0 % Platelet Count 303 10^3/uL Mean Platelet Volume 10.9 fL Neutrophils (%) (Auto) 46.5 % Lymphocytes (%) (Auto) 38.2 % Monocytes (%) (Auto) 10.0 % Neutrophils # (Auto) 4.2 10^3/uL Lymphocytes # (Auto) 3.4 10^3/uL Monocytes # (Auto) 0.9 10^3/uL Absolute Immature Granulocyte (auto 0.06 10^3 u/L Eosinophils % 4.0 % Basophils % 0.6 % Basophils # 0.1 10^3/uL Eosinophil Count 0.4 10^3/uL Percent Immature Gran (Cell Imm) 0.70 % Urine Collection Type CCMS Urine Color YELLOW Urine Appearance CLOUDY Urine Bilirubin NEGATIVE MG/DL Urine Ketones NEGATIVE Urine Specific [place] 1.025 Urine pH 5 Urine Protein 500 mg/dL Urine Urobilinogen NORMAL Urine Nitrate NEGATIVE Urine Leukocyte Esterase NEGATIVE Urine Blood 10 TR Urine RBC NONE SEEN RBC/HPF Urine WBC 5-10 WBC/HPF Urine Squamous Epithelial Cells MODERATE #/HPF Urine Amorphous Sediment LARGE Urine Bacteria FEW Urine Other MUCUS 1+ #/HPF Urine Glucose NORMAL Test 01/25/19 04:30 01/25/19 08:00 01/25/19 13:10 01/25/19 13:35 Blood Gas Sample Site LEFT BRACHIAL ARTRY LEFT BRACHIAL ARTRY Blood Gas pH 7.349 7.331 Blood Gas PCO2 32.0 mmHg 35.6 mmHg Blood Gas PO2 103.3 mmHg 107.4 mmHg Blood Gas HCO3 17.2 mmol/L 18.4 mmol/L Blood Gas Base Excess -7.4 mmol/L -6.8 mmol/L Jose Test N/A N/A Arterial Blood Oxygen Saturation 96.9 % 96.8 % Deoxyhemoglobin 3.0 % 3.2 % Carboxyhemoglobin 1.6 % 0.6 % Methemoglobin 0.3 % 0.3 % Total Hemoglobin 11.7 % 11.3 % Total Oxygen Concentration 15.8 % 15.4 % Lactic Acid (Blood Gas) 0.8 MMOL/L 1.2 MMOL/L Blood Gas Temperature 37.0 37 Oxygen Delivery Method (LAB) VENT Blood Gas Vent Mode SIMV SIMV Blood Gas Vent Rate 15 15 FiO2 0.45 % 45 % Blood Gas Tidal Volume 450 ML 450 ML Blood Gas PEEP 5.0 CMH2O 5 CMH2O Blood Gas Pressure Support 10 CMH2O 10 CMH2O Bicarbonate 18.2 mmol/L 19.5 mmol/L White Blood Count 10.6 10^3/uL Red Blood Count 3.98 10^6/uL Hemoglobin 11.8 g/dL Hematocrit 35.2 % Mean Corpuscular Volume 88.4 fL Mean Corpuscular Hemoglobin 29.6 pg Mean Corpuscular Hemoglobin Concent 33.5 g/dL Red Cell Distribution Width 14.2 % Platelet Count 242 10^3/uL Mean Platelet Volume 11.1 fL Neutrophils (%) (Auto) 90.9 % Lymphocytes (%) (Auto) 6.2 % Monocytes (%) (Auto) 1.7 % Neutrophils # (Auto) 9.7 10^3/uL Lymphocytes # (Auto) 0.7 10^3/uL Monocytes # (Auto) 0.2 10^3/uL Absolute Immature Granulocyte (auto 0.03 10^3 u/L Eosinophils % 0.6 % Basophils % 0.3 % Basophils # 0.0 10^3/uL Eosinophil Count 0.1 10^3/uL Troponin I 1.27 ng/mL Pro-B-Type Natriuretic Peptide 54005 pg/mL Percent Immature Gran (Cell Imm) 0.30 % Differential Total Cells Counted 100 #CELLS Segmented Neutrophils 92 % Band Neutrophils 1 % Lymphocytes 7 % Platelet Morphology NORMAL Poikilocytosis 1+ Anisocytosis 1+ Test 01/25/19 18:50 01/26/19 01:31 01/26/19 04:50 01/26/19 04:58 Troponin I 0.90 ng/mL Vancomycin Level Trough 22.8 ug/mL Blood Gas Sample Site RT BRACIAL ARTERY Blood Gas pH 7.386 Blood Gas PCO2 26.3 mmHg Blood Gas PO2 73.0 mmHg Blood Gas HCO3 15.4 mmol/L Blood Gas Base Excess -8.2 mmol/L Jose Test N/A Arterial Blood Oxygen Saturation 93.5 % Deoxyhemoglobin 6.4 % Carboxyhemoglobin 1.1 % Methemoglobin 0.5 % Total Hemoglobin 11.0 % Total Oxygen Concentration 14.3 % Lactic Acid (Blood Gas) 1.9 MMOL/L Blood Gas Temperature 37.0 Oxygen Delivery Method (LAB) NASAL CANNULA FiO2 0.32 % Bicarbonate 16.2 mmol/L White Blood Count 10.8 10^3/uL Red Blood Count 3.42 10^6/uL Hemoglobin 10.3 g/dL Hematocrit 30.7 % Mean Corpuscular Volume 89.8 fL Mean Corpuscular Hemoglobin 30.1 pg Mean Corpuscular Hemoglobin Concent 33.6 g/dL Red Cell Distribution Width 14.2 % Platelet Count 225 10^3/uL Mean Platelet Volume 11.1 fL Neutrophils (%) (Auto) 89.8 % Lymphocytes (%) (Auto) 6.2 % Monocytes (%) (Auto) 3.8 % Neutrophils # (Auto) 9.7 10^3/uL Lymphocytes # (Auto) 0.7 10^3/uL Monocytes # (Auto) 0.4 10^3/uL Absolute Immature Granulocyte (auto 0.02 10^3 u/L Eosinophils % 0.0 % Basophils % 0.0 % Basophils # 0.0 10^3/uL Eosinophil Count 0.0 10^3/uL Sodium Level 139 mmol/L Potassium Level 3.4 mmol/L Chloride Level 108.0 mmol/L Carbon Dioxide Level 18.9 mmol/L Anion Gap 15.5 Blood Urea Nitrogen 21 mg/dL Creatinine 1.43 mg/dL Estimated GFR () 44.3 BUN/Creatinine Ratio 14.0 Glucose Level 143 mg/dL Hemoglobin A1c 5.8 % Calcium Level 9.2 mg/dL Total Bilirubin 0.3 mg/dL Aspartate Amino Transf (AST/SGOT) 19 U/L Alanine Aminotransferase (ALT/SGPT) 11 U/L Alkaline Phosphatase 110 U/L Total Protein 6.2 g/dL Albumin 2.7 g/dL Globulin 3.5 Triglycerides Level 64 mg/dL Cholesterol Level 223 mg/dL LDL Cholesterol, Calculated 163.2 VLDL Cholesterol 12.8 HDL Cholesterol 47 mg/dL Cholesterol Ratio (LDL/HDL) 4.392994 Percent Immature Gran (Cell Imm) 0.20 % Test 01/26/19 05:32 Differential Total Cells Counted 100 #CELLS Segmented Neutrophils 84 % Lymphocytes 14 % Monocytes 2 % Current Medications Medications (Trade) Dose Ordered Sig/Jacques PRN Reason Start Time Stop Time Status Last Admin Acetaminophen (Tylenol) 1,000 mg Q6HR PRN PAIN 01/26/19 00:30 02/25/19 00:29 01/26/19 00:33 Albuterol/ Ipratropium (Duoneb 0.5 Mg-3 Mg/3 ml Soln) 3 ml RTQ4 01/25/19 05:00 02/24/19 04:59 01/26/19 05:37 Aspirin (Aspirin) 81 mg DAILY 01/25/19 13:00 02/24/19 12:59 01/25/19 13:00 Azithromycin 500 mg/Sodium Chloride 250 ml @ 175 mls/hr Q24HRS 01/26/19 08:00 02/25/19 07:59 UNV Clopidogrel Bisulfate (Plavix) 75 mg DAILY 01/26/19 09:00 02/25/19 08:59 Dextrose (Dextrose 50%-Water Syringe) 25 ml STAT PRN HYPOGLYCEMIA 01/25/19 10:00 02/24/19 09:59 Enoxaparin Sodium (Lovenox) 40 mg DAILY 01/25/19 09:00 02/24/19 08:59 01/25/19 09:00 Hydralazine HCl (Apresoline) 10 mg Q4HR PRN HYPERTENSION 01/25/19 12:30 02/24/19 12:29 01/25/19 23:13 Ibuprofen (Motrin) 800 mg Q6H PRN PAIN 01/25/19 23:30 02/24/19 23:29 01/26/19 00:10 Insulin Glargine (Lantus) 20 unit HS 01/25/19 10:00 02/24/19 09:59 Future Hold 01/25/19 09:54 Insulin Human Regular (Humulin R) Give 30 minutes before meal ACHS 01/25/19 21:00 02/24/19 20:59 01/25/19 21:00 Levetiracetam (Keppra) 500 mg BID 01/25/19 12:31 02/24/19 12:30 01/25/19 21:05 Methylprednisolone Sodium Succinate (Solu-Medrol) 60 mg Q6 01/25/19 09:30 02/24/19 09:29 01/26/19 05:59 Morphine Sulfate (Duramorph) 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 Q4H PRN PAIN 01/26/19 03:00 02/25/19 02:59 UNV 01/26/19 02:59 Nifedipine (Procardia) 30 mg BID 01/25/19 12:00 02/24/19 11:59 01/25/19 21:05 Pantoprazole Sodium (Protonix Iv) 40 mg DAILY 01/25/19 09:00 02/24/19 08:59 01/25/19 09:00 Piperacillin Sod/ Tazobactam Sod 3.375 gm/Sodium Chloride 100 ml @ 100 mls/hr Q6H 01/25/19 02:30 02/24/19 02:29 01/26/19 02:30 Potassium Chloride (Klor-Con 10) 20 meq DAILY24 01/25/19 12:00 02/24/19 11:59 01/25/19 12:00 Propofol (Diprivan) 1,000 mg PRN PRN SEDATION 01/25/19 03:00 02/24/19 02:59 01/25/19 07:07 Sertraline HCl (Zoloft) 100 mg DAILY 01/26/19 09:00 02/25/19 08:59 Simvastatin (Zocor) 40 mg HS 01/25/19 21:00 02/24/19 20:59 01/25/19 21:05 Sodium Chloride 1,000 ml @ 125 mls/hr Q8H 01/25/19 03:30 02/24/19 03:29 01/26/19 00:18 Sepsis Infection Criteria Pres: Documented Infection LEVEL 1 SEPSIS INFECTION CRITE: ABX Therapy LEVEL 2-SIRS (LIST ALL THAT AP: None/Not assessed Cardiovascular Evidence: Not Assessed or None Hematologic Evidence: None/Not assessed Hepatic Evidence: None/Not assessed Metabolic Evidence: None/Not assessed Neurological Evidence: None/Not assessed Respiratory Evidence: Need for O2 to keep>90%, O2 SAT<90room air Renal Evidence: None/Not assessed O2 Sat by Pulse Oximetry: 94 Respiratory End-tidal CO2: 22 Oxygen Flow Rate: 5.00 Assessment/Plan Assessment/Plan Assessment/Plan Patient is a 68 F PMH of Seizure Disorder, CAD, COPD presenting with respiratory failure from CAP/COPD. Plan 1.) Acute Respiratory Failure: 2/2 to CAP/COPD s/p extubation. O2 support via NC @ 3L. Patient wheezing improved. Will wean IV steroids. Cont Nebs, cont IV abx 2.) Metabolic Acidosis - D/C IV diuresis. Cont IV abx and treatment of COPD/ CAP. 3.) CAP - Continue Abx with O2 support. Patient improving from Respiratory standpoint. 4.) Renal Failure - cont IVF, D/C IV diuretics. 5.) HTN: cont current regimen. 6. CAD/Elevated Troponins: Cards following. CATH today. Cont dAPT/Statin. 7. PPx: PPI MAGUI CONNER MD Jan 27, 2019 07:50
[2019-01-27] MEDS ORDERED: PHENERGAN PO PRN (08:00)
[2019-01-27] MEDS ORDERED: VALIUM PO PRN (08:00)
--- NOTE | 2019-01-27 08:05 | NUR ---
Dr. Shanna Otero at bedside. No new orders received.
[2019-01-27] MEDS: PROTONIX IV IV SCH (08:51)
[2019-01-27] MEDS: LOVENOX SQ SCH (08:51)
[2019-01-27] MEDS: COREG PO SCH ×2 (08:55→19:55)
[2019-01-27] MEDS: APRESOLINE PO SCH ×3 (08:55→19:52)
[2019-01-27] MEDS: NS 1000ML 1,000 ML IV SCH (08:59)
[2019-01-27] MEDS ORDERED: COZAAR PO SCH ×2 (09:00)
[2019-01-27] MEDS ORDERED: IMDUR PO SCH (09:00)
[2019-01-27] MEDS ORDERED: LASIX IV SCH (09:00)
[2019-01-27] MEDS ORDERED: SOLU-MEDROL IV SCH (09:00)
[2019-01-27] MEDS ORDERED: ASPIRIN EC PO SCH (09:00)
--- NOTE | 2019-01-27 09:02 | DIET.OP ---
Nutrition Asmt/Malnutrit 2-17 Actual Date of Review: Jan 26, 2019 Nutritional Screening: Malnutr/Diet Consult Diagnosis: Shortness of breath and respiratory failure Pertinent Medical Hx/Surgical: HTN, hyperlipidemia, COPD with tobacco dependence, peripheral vascular disease, GERD Subjective Information: Consulted for Malnutrition screening. The patient reports that she has had some appetite issues over the past 12 months. Her current appetite is described as fair. She reported that her weight went from 187# to 102# in about a 12 month period. Her last visit to the hospital, June 2018, she weighed 154#. NKA. No chewing or swallowing difficulty. Patient has had mild muscle wasting a fat loss from a previous visit. No additional muscle wasting or fat loss present at this other than what was charted from her last visit. Current Diet Order/Nutrition S: NPO Pertinent Meds Current Medications Medications (Trade) Dose Ordered Sig/Jacques PRN Reason Start Time Stop Time Status Last Admin Acetaminophen (Tylenol) 1,000 mg Q6HR PRN PAIN 01/26/19 10:00 02/25/19 09:59 01/27/19 01:03 Albuterol/ Ipratropium (Duoneb 0.5 Mg-3 Mg/3 ml Soln) 3 ml RTQ4 01/25/19 05:00 02/24/19 04:59 01/27/19 08:36 Aspirin (Aspirin Ec) 81 mg DAILY 01/27/19 09:00 02/26/19 08:59 Atorvastatin Calcium (Lipitor) 40 mg HS 01/26/19 21:00 02/25/19 20:59 01/26/19 20:52 Azithromycin 500 mg/Sodium Chloride 250 ml @ 175 mls/hr Q24HRS 01/26/19 08:00 02/25/19 07:59 01/26/19 09:29 Carvedilol (Coreg) 6.25 mg BID 01/26/19 08:00 02/25/19 07:59 01/26/19 20:52 Clopidogrel Bisulfate (Plavix) 75 mg DAILY 01/26/19 09:00 02/25/19 08:59 01/26/19 08:15 Dextrose (Dextrose 50%-Water Syringe) 25 ml STAT PRN HYPOGLYCEMIA 01/25/19 10:00 02/24/19 09:59 Diazepam (Valium) 2.5 mg OT PRN Preop 01/27/19 08:00 02/01/19 07:59 Enoxaparin Sodium (Lovenox) 40 mg DAILY 01/25/19 09:00 02/24/19 08:59 01/27/19 08:51 Hydralazine HCl (Apresoline) 10 mg Q4HR PRN HYPERTENSION 01/25/19 12:30 02/24/19 12:29 01/25/19 23:13 Hydralazine HCl (Apresoline) 25 mg TID 01/26/19 21:00 02/25/19 20:59 01/26/19 20:51 Insulin Glargine (Lantus) 20 unit HS 01/25/19 10:00 02/24/19 09:59 Future Hold 01/25/19 09:54 Insulin Human Regular (Humulin R) Give 30 minutes before meal ACHS 01/25/19 21:00 02/24/19 20:59 01/26/19 21:14 Levetiracetam (Keppra) 500 mg BID 01/25/19 12:31 02/24/19 12:30 01/26/19 20:51 Losartan Potassium (Cozaar) 50 mg DAILY 01/27/19 09:00 02/26/19 08:59 Methylprednisolone Sodium Succinate (Solu-Medrol) 60 mg BID 01/27/19 09:00 02/24/19 09:29 Morphine Sulfate (Morphine Sulfate) 2 mg Q4H PRN MODERATE PAIN 01/26/19 08:20 02/25/19 02:59 Morphine Sulfate (Morphine Sulfate) 4 mg Q4H PRN SEVERE PAIN 01/26/19 08:30 02/25/19 08:29 Nitroglycerin/ Dextrose 250 ml @ 20 mls/hr PRN 01/26/19 16:00 02/25/19 15:59 01/27/19 03:15 Pantoprazole Sodium (Protonix Iv) 40 mg DAILY 01/25/19 09:00 02/24/19 08:59 01/27/19 08:51 Piperacillin Sod/ Tazobactam Sod 3.375 gm/Sodium Chloride 100 ml @ 100 mls/hr Q6H 01/25/19 02:30 02/24/19 02:29 01/27/19 03:12 Potassium Chloride (Klor-Con 10) 20 meq DAILY24 01/25/19 12:00 02/24/19 11:59 01/26/19 11:33 Promethazine HCl (Phenergan) 50 mg OT PRN PREOP<75 Yrs 01/27/19 08:00 02/01/19 07:59 Sertraline HCl (Zoloft) 100 mg DAILY 01/26/19 09:00 02/25/19 08:59 01/26/19 08:15 Sodium Chloride 1,000 ml @ 70 mls/hr [id number] 01/26/19 16:00 02/25/19 15:59 01/26/19 16:27 Pertinent Labs Laboratory Tests 01/26/19 15:29: Blood Gas Sample Site RT BRACIAL ARTERY, Blood Gas pH 7.336L, Blood Gas PCO2 32.9L, Blood Gas PO2 54.0L, Blood Gas HCO3 17.2L, Blood Gas Base Excess -7.7L, Jsoe Test N/A, Arterial Blood Oxygen Saturation 85.4L, Deoxyhemoglobin 14.5H, Carboxyhemoglobin 0.4L, Methemoglobin 0.5, Total Hemoglobin 11.5L, Total Oxygen Concentration 13.7, Lactic Acid (Blood Gas) 3.0*H, Blood Gas Temperature 37, Oxygen Delivery Method (LAB) NASAL CANNULA, FiO2 40, Bicarbonate 18.2L 01/27/19 04:53: White Blood Count 15.7H, Red Blood Count 3.77L, Hemoglobin 11.2L, Hematocrit 34.5L, Mean Corpuscular Volume 91.5, Mean Corpuscular Hemoglobin 29.7, Mean Corpuscular Hemoglobin Concent 32.5L, Red Cell Distribution Width 14.6H, Platelet Count 252, Mean Platelet Volume 11.4H, Sodium Level 144, Potassium Level 3.3L, Chloride Level 107.0, Carbon Dioxide Level 23.8, Anion Gap 16.5, Blood Urea Nitrogen 26H, Creatinine 1.67H, Estimated GFR () 37.0 , BUN/Creatinine Ratio 15.0, Glucose Level 139H, Calcium Level 9.4, Total Bilirubin 0.3, Aspartate Amino Transf (AST/SGOT) 66H, Alanine Aminotransferase ( ALT/SGPT) 20, Alkaline Phosphatase 104, Total Protein 7.2, Albumin 3.2L, Globulin 4.0, Thyroid Stimulating Hormone (TSH) 0.333L Height (Feet): 5 Height (Inches): 7 Current Weight: 151 Usual Weight: 154 %UBW: 98 %IBW: 104 Recent Weight Change: Yes Weight Status: Underweight GI Symptoms: [place] Food Allergies: No Skin Integrity/Comment: No Calories/Kcals/Kg: MsJ * 1.2-1.3 Kcals Calculated: 1026-6746 Protein: Use Current Weight Protein g/k.8-1.0 g/kg Protein Calculated: 54g-68g Fluid: ml: 7134-8758 or 1 ml/kcal Nutritional Problem: No Cur. Nutritional Probl Signs/Symptoms: 98% UBW over the past 6 months, 75-100% po of most meals, BMI 23.7 Body Fat Depletion (Non Severe: Mild Depletion Muscle Mass (Non-Severe): Mild Depletion (Mod) Protein-Calorie Malnutrition: Non-Severe Is there a minimum of two crit: Yes RD Comments: Intervention: 1. Recommend 2gr Low sodium diet once diet progresses 2. Educate on the Heart Healthy/Sodium Restricted diet for the patients history of CAD and stroke Monitor/evaluate: 1. Weight status 2. po intake Expected Outcomes Goal: 1. The patient will consume at least 75% of meals provided to meet 100% of estimated energy needs over the next 2-3 days Discharge plan: 1. Discharge planning in progress Malnutrtion/Nutrition Risk Edu: Yes Educate patient on the Heart Healthy/ Sodium Restricted diet BECKI SHARIF RD Jan 27, 2019 09:02
--- NOTE | 2019-01-27 09:03 | NUR ---
Preop meds Pre-op valium and phenergan given at this time per Duncan Gould from [employer].
--- NOTE | 2019-01-27 09:13 | DIREP ---
PROCEDURE:CHEST 1 VIEW COMPARISON:[facility], CR, XRAY CHEST SINGLE VW, 01/26/2019, 04:05 PM. INDICATIONS:Pneumonia FINDINGS: LUNGS/PLEURA:Infiltrates remain in both lower lungs. There is increasing opacity in the right lower lung. There is hyperaeration consistent with COPD. VASCULATURE:Normal. Unremarkable pulmonary vasculature. CARDIAC:Normal. No cardiac silhouette abnormality or cardiomegaly. MEDIASTINUM:Calcification in the aortic arch. BONES:Normal. No fracture or visible bony lesion. OTHER:Monitor leads are in place. CONCLUSION:There remain infiltrates in both lower lungs with increasing opacity in the right lower lung. Dictated by: Patrick Pratt M.D. on 01/27/2019 at 09:09 AM
--- NOTE | 2019-01-27 10:15 | NUR ---
Off unit Patient transferred off unit via stretcher to photofinishing laboratory worker. Report given to Julito Madsen RN. Relinquished care of pt.
[2019-01-27] MEDS ORDERED: NS 50ML 50 ML IV ONE (10:44)
[2019-01-27] MEDS ORDERED: ANGIOMAX IV ONE (10:44)
[2019-01-27] MEDS ORDERED: ASPIRIN ONE (10:51)
[2019-01-27] MEDS ORDERED: BRILINTA ONE (10:52)
[2019-01-27] MEDS ORDERED: ZITHROMAX 500 MG in NS 250ML 250 ML IV SCH (11:00)
--- NOTE | 2019-01-27 11:50 | CCRH ---
DATE OF SERVICE: 01/27/2019 HEART CATH REPORT PRECATHETERIZATION DIAGNOSES: Non-ST elevation myocardial infarction, acute pulmonary edema, acute on chronic systolic heart failure, hypertension, hypertensive heart disease, prior stenting. POSTCATHETERIZATION DIAGNOSES: Left main is a short vessel, appears to be patent, type 3 LAD appears to be fully patent. There is a small ramus branch with a 50% mid lesion documented. Circumflex is a large, dominant vessel with a proximal long segment of 80-90% eccentric stenosis with good distal flow is 3.5 mm vessel and balloon angioplasty followed by stenting with a 3.5 x 33 mm Xience Mulu stent deployed with good results. No complication of procedure. Right coronary artery is a small nondominant vessel with a mid right coronary artery with subtotal occlusion with reconstitution of the distal right coronary artery, which is a very small caliber vessel. Retrograde small collaterals from the left coronary artery was noted for the distal right coronary artery. Left ventricle is moderately dilated, elevated LVEDP of 18-20 mm and global hypokinesis, inferior severe hypokinesis, ejection fraction of 30-35%, ischemic cardiomyopathy noted. ANESTHESIA: 2% lidocaine. PREOPERATIVE MEDICATIONS: Phenergan 50 mg p.o., Valium 2.5 mg p.o., Versed 2 mg IV and fentanyl 37.5 mcg IV, Angiomax infusion during the procedure with Brilinta 180 mg p.o. loading with Protonix 40 mg p.o. loading along with aspirin 81 mg p.o. ANTICOAGULATION: Heparin 2000 units intra-arterially, 2000 units in the flush solution, 1000 units in the dye solution and Angiomax being infused. Visipaque used. Total contrast is 65 mL for the diagnostic total is 110 mL. CATHETERS: JL4 6-Panamanian, JR4 6-Panamanian, and 6-Panamanian angled pigtail catheter and EDU-3 6-Panamanian catheter. ARTERIAL TIME: 25 minutes. FLUOROSCOPY TIME: 1.7 minutes. PROCEDURES: Left heart catheterization, bilateral selective coronary arteriography, left ventriculography and circumflex PCI with balloon angioplasty followed by stent deployment by Dr. Good. NARRATION OF PROCEDURE: Under local anesthesia, right femoral artery was punctured percutaneously by arterial needle, guide wire passed in right femoral artery, 6-Panamanian Cordis sheath introduced, side port of the sheath used for femoral arterial pressure monitoring. Sheath anchored with suture. Left Gerry catheter introduced over guide wire into ascending aorta left coronary artery cannulated and left coronary angiography performed in SRI LANKAN and BUCK projections with craniocaudal applications to visualize all branches. Left catheter exchanged for right coronary catheter and right coronary angiography performed in SRI LANKAN and BUCK. This catheter exchanged for 6-Panamanian pigtail catheter and catheter crossed the aortic valve and left ventricular LVEDP measured and LV gram performed in 30 degrees BUCK view with 30 mL Omnipaque dye and panning of descending aorta attempted. Patient tolerated procedure well. No complications of procedure. Angio-Seal deployed for hemostasis. HEMODYNAMICS: LVEDP is 18-20 mm, LV pressure is 150/20, femoral artery pressure 130/67 with a mean of 90. No gradient across the aorta on pullback of the central catheter. FINAL CONCLUSION: Coronary artery disease. Left main short patent. LAD type 3 vessel patent. Ramus proximal mid and mid 50% stenosis. Circumflex large, dominant vessel with proximal long area of 90% stenosis with PCI done with balloon dilatation followed by stenting with 3.5 x 33 mm Xience Mulu stent with good results. No complication of the procedure. Right coronary artery is small nondominant vessel with mid right coronary artery 99% subtotal occlusion with distal reconstitution of the vessel and retrograde flow from the left coronary artery and the distal right coronary artery, LV dilatation with global hypokinesis, 35% ejection fraction. RECOMMENDATIONS: Optimization of medical therapy. The patient will go to ICU. Laxmichand MD Shanna DR: GLYNN/sania JOB# [id number]
--- NOTE | 2019-01-27 12:02 | NUR ---
Angiomax Angiomax off at this time. Pt will remain on flat time until 1402.
[2019-01-27] MEDS: MORPHINE SULFATE IV PRN (12:40)
--- NOTE | 2019-01-27 12:50 | NUR ---
Heart cath site Heart cath site firm, but no swelling noted. Held manual pressure for 5 minutes. Site soft. No bruising noted. Will continue to monitor.
[2019-01-27] MEDS: KEPPRA PO SCH ×2 (13:42→21:10)
[2019-01-27] MEDS: ZOLOFT PO SCH (13:43)
[2019-01-27] MEDS: KLOR-CON 10 PO SCH (13:43)
--- NOTE | 2019-01-27 13:44 | CCLR ---
DATE OF PROCEDURE: 01/27/2019 PROCEDURE: Percutaneous coronary intervention. CLINICAL INDICATION: The patient is a 68-year-old female who was admitted to the hospital with probable pneumonia and pulmonary edema. DESCRIPTION OF PROCEDURE: She was taken to the cardiac catheterization lab today by Dr. Otero for coronary study. The coronary angiogram showed a normal anterior descending. There was a 80% stenosis in the proximal circumflex with a tandem 75% stenosis, slightly more distal. I came to the cardiac catheterization lab to do intervention. A 6-Bulgarian EBU guide catheter was engaged in the left coronary artery. A BMW coronary wire was then advanced into distal position. The lesion was predilated with 2 inflations of a 3.0 x 20 mm plain balloon. The distal portion of the lesion was inflated to a peak pressure of 16 atmospheres. The balloon was then brought back and the more proximal section of the lesion was inflated to a peak pressure of 16 atmospheres. Following this, a 3.5 x 33 mm Xience drug-eluting stent was advanced across the proximal and distal sections of the lesion. It was deployed to a peak pressure of 20 atmospheres. Post-stent angiography showed a widely patent circumflex with 0% residual stenosis and SAM grade 3 flow. CONCLUSION: Successful PCI and drug-eluting stent placement in the proximal left circumflex coronary artery reducing an 80% stenosis to 0% residual with placement of a 3.5 x 30 mm Xience drug-eluting stent. After stent placement, the T-wave inversions came to normal. NATALIA HOWARD MD DR: PEGGY/sania JOB# [id number]
[2019-01-27] MEDS ORDERED: ZOSYN 2.25GM 2.25 GM in NS 100ML 100 ML IV SCH (14:00)
--- NOTE | 2019-01-27 14:00 | NUR ---
Daniel Daniel catheter leaking. Balloon checked, 3 cc of fluid noted in balloon. Added 10cc of NS to balloon. Catheter continued to leak. Discontinued daniel catheter. 13 cc of fluid removed from catheter. Denisha care provided. Educated pt on due to void time, pt verbalized understanding.
--- NOTE | 2019-01-27 14:09 | PCM.EKG ---
[facility] Test Date: 2019-01-27 Test Time: 11:58:38 Pat Name: HERBER ZARATE Department: Room: 304 Gender: F Clinical Document Improvement Educator: RT : 1950 Requested By: EMMA GR Order Number: [id number] Reading MD: Elda Otero Measurements Intervals [place] Rate: 80 P: 79 LA: 142 QRS: 73 QRSD: 94 T: 129 QT: 396 QTc: 456 Interpretive Statements Normal sinus rhythm with sinus arrhythmia Left ventricular hypertrophy with repolarization abnormality Abnormal ECG Compared to ECG 01/26/2019 01:13:34 Left ventricular hypertrophy now present Early repolarization now present Sinus tachycardia no longer present Ventricular premature complex(es) no longer present ST (T wave) deviation no longer present Electronically Signed On 01-29-2019 16:50:06 [employer] by Elda Otero Please click the below link to view image of tracing.
[2019-01-27] MEDS ORDERED: ZOFRAN IV PRN (15:00)
--- NOTE | 2019-01-27 15:12 | NUR ---
Status Patient reporting pain to right lower abdomen, firmness and distention noted. Heart cath site soft, no swelling. Dr. Otero notified. New order received for CT without contrast of abdomen/pelvis. Also made aware of 5 loose bowel movements. New order received for cdiff sample. RBTO.
--- NOTE | 2019-01-27 15:28 | NUR ---
Status Patient stated "I feel like I'm having a stroke like I've had before." Dr. Otero notified. No new orders received. NIH scale completed.
--- NOTE | 2019-01-27 15:35 | NUR ---
Dr. Phyllis Ferguson notified of patients low blood pressure, extensive diarrhea, pain to right lower abdomen/pelvis, and reports of "feeling like she is having a stroke." New orders received for cdiff sample, 1000NS bolus x1, Stat H&H. RBVO.
--- NOTE | 2019-01-27 16:15 | NUR ---
Dr. Shanna Otero at bedside assessing patient. Pt placed into [facility] per DR Chavez No new ordesr received. Addendum: 01/30/19 at 0754 by Kamille Ahuja RN-RN PERIOPERATIVE Dr. Otero at bedside assessing patients abdomen and heart cath site. No new orders received. [facility].
[2019-01-27] MEDS ORDERED: NS 1000ML 1,000 ML IV ONE (16:25)
[2019-01-27 16:32] LABS: HEMOGLOBIN 7.6 g/dL (12.0-15.0)
[2019-01-27] MEDS ORDERED: NS 250ML 250 ML IV ONE (17:31)
--- NOTE | 2019-01-27 17:45 | NUR ---
Dinner Patient sitting up eating dinner. No s/s of distress noted. Will continue to monitor.
[2019-01-27 18:46] LABS: LYMPHOCYTES # 0.8 10^3/uL (1.0-4.8); LYMPHOCYTES % 5.1 % (24.0-44.0); MEAN CELL HGB 30.1 pg (26-34); MEAN CELL HGB CONCENTRATION 32.9 g/dL (33-37); MEAN CORP VOLUME 91.4 fL (78-100); MEAN PLATELET VOLUME 11.7 fL (7.8-11.0); MONOCYTES # 1.9 10^3/uL (0.3-0.8); MONOCYTES % 11.7 % (5.0-12.0); NEUTROPHIL # 13.3 10^3/uL (1.8-7.7); NEUTROPHILS % 82.8 % (41.0-85.0); RED CELL DISTRIBUTION WIDTH 14.3 % (11.5-14.5); WHITE BLOOD CELL 16.1 10^3/uL (4.5-11.0)
[2019-01-27 19:00] LABS: CALCIUM 8.1 mg/dL (8.4-10.5); CARBON DIOXIDE 21.7 mmol/L (20.0-32)
--- NOTE | 2019-01-27 19:07 | NUR ---
Dr. Phyllis Ferguson notified of patients blood pressure of 82/36. PRBC infusing per order. No new orders received.
--- NOTE | 2019-01-27 19:27 | NUR ---
Dr. Phyllis Ferguson notified of patients potassium of 2.8 and of bradycardia of 56. New orders received.
--- NOTE | 2019-01-27 19:33 | NUR ---
Early mobility Patient excluded due to heart cath site.
--- NOTE | 2019-01-27 19:45 | NUR ---
at bedside. New orders received RBVO.
--- NOTE | 2019-01-27 20:00 | NUR ---
18 f daniel placed using sterile technique for hourly output in critical patient. 5ml of clear yellow urine returned. Secured to leg with securement device.
--- NOTE | 2019-01-27 20:04 | DIREP ---
PROCEDURE:CT ABDOMEN/PELVIS W/O CONTRAST COMPARISON:None. INDICATIONS:HEMATOMA TECHNIQUE:Axial images were created through the abdomen and pelvis without intravenous contrast material. No oral contrast was administered. Sagittal and coronal reconstructions were performed from source images. FINDINGS: LUNG BASES:Small right pleural effusion with trace left pleural effusion. Airspace consolidation at the dependent lung bases would favor atelectasis. This is asymmetrically more prominent on the right. LIVER:No suspicious focal hepatic lesion. Mild perihepatic fluid appears mildly complex and is suspicious for blood products. BILIARY:Previous cholecystectomy. PANCREAS:Diffuse atrophy and fatty replacement. No suspicious pancreatic abnormality. SPLEEN:The spleen is not significantly enlarged. Mild perisplenic fluid also appears mildly complex and likely reflects blood products. ADRENALS:Nonspecific thickening of the adrenal glands bilaterally. URINARY TRACT:Persistent delayed enhancement of the right kidney. Excreted contrast material within the intrarenal collecting systems and ureters bilaterally. Mild to moderate bilateral hydroureteronephrosis. AORTA/VASCULAR:Mild ectasia of the infrarenal abdominal aorta with diffuse atherosclerotic calcifications. RETROPERITONEUM:No suspicious retroperitoneal lymphadenopathy. BOWEL/MESENTERY:Tiny hiatal hernia. No evidence for small bowel obstruction. Scattered distal colonic diverticulosis. No convincing evidence to suggest acute diverticulitis. Nonvisualization of the appendix. No free air. Large hematoma extending from the right lower quadrant into the pelvis. ABDOMINAL WALL:Fairly diffuse subcutaneous fat stranding within the right inguinal region, suggesting recent endovascular intervention. PELVIC ORGANS:Large hematoma within the right pelvis. This appears to displace the urinary bladder to the left with apparent diffuse bladder wall thickening. The hematoma likely exerts mass effect on the distal ureters, resulting in the above hydroureteronephrosis. BONES:No acute abnormality. CONCLUSION: 1. Large hematoma within the right lower quadrant, extending into the pelvis. This appears to displace the urinary bladder to the left and likely exerts mass effect on the distal ureters resulting in mild to moderate bilateral hydroureteronephrosis. There is persistent delayed enhancement of the right kidney which may indicate compromised renal function. Mild complex free fluid is noted within the upper abdomen about the liver and spleen, suggestive of additional blood products. 2. Small right and trace left pleural effusions with likely associated atelectasis at the lung bases. 3. Additional findings as discussed above. This report was called by telephone at 8:02 pm on January 27, 2019 to Elda Otero . Dictated by: Gal Stroud M.D. On 01/27/2019 at 07:45 PM
[2019-01-27] MEDS ORDERED: KCL 20MEQ/100ML 100 ML IV ONE (20:30)
[2019-01-27] MEDS ORDERED: NS 1000 ML/KCL 40MEQ 1,000 ML IV ONE (20:30)
--- NOTE | 2019-01-27 20:30 | NUR ---
Dr.Kamnani Grant Notified by Lidia PETERSEN to clarify ordered. ordered strict intake and output notify him if urine output is less than 30cch./hour.
[2019-01-27 20:57] LABS: LYMPHOCYTE 7 % (25-36); MONOCYTE 8 % (3-9); SEGMENTED NEUTROPHILS 85 % (31-76)
[2019-01-27] MEDS ORDERED: KLOR-CON 10 PO SCH (21:00)
[2019-01-27] MEDS: LIPITOR PO SCH (21:10)
--- NOTE | 2019-01-27 21:27 | NUR ---
D-dimer notified of elevated D-dimer. of 1.03.
--- NOTE | 2019-01-27 21:46 | NUR ---
at bedside. at bedside to check patient status. No change in status noted.
[2019-01-28] VITALS (94 sets, daily range): BP systolic 111–184; BP diastolic 51–105
[2019-01-28] MEDS ORDERED: KCL 20MEQ/100ML 100 ML IV ONE (00:26)
[2019-01-28] MEDS: DUONEB 0.5 MG-3 MG/3 ML SOLN IH SCH ×6 (01:39→20:00)
--- NOTE | 2019-01-28 03:00 | NUR ---
Heart cath site Dressing change.
[2019-01-28 03:33] LABS: BASOPHIL % 0.1 % (0.0-0.2); LYMPHOCYTES % 13.3 % (24.0-44.0); MEAN CELL HGB 29.3 pg (26-34); MEAN CELL HGB CONCENTRATION 33.2 g/dL (33-37); MEAN CORP VOLUME 88.3 fL (78-100); MEAN PLATELET VOLUME 11.3 fL (7.8-11.0); MONOCYTES # 2.3 10^3/uL (0.3-0.8); MONOCYTES % 15.1 % (5.0-12.0); NEUTROPHIL # 10.7 10^3/uL (1.8-7.7); NEUTROPHILS % 71.2 % (41.0-85.0); RED CELL DISTRIBUTION WIDTH 14.7 % (11.5-14.5)
[2019-01-28 03:35] LABS: HEMOGLOBIN 7.8 g/dL (12.0-15.0)
[2019-01-28] MEDS ORDERED: LASIX IV STA (03:45)
[2019-01-28 03:51] LABS: CALCIUM 8.2 mg/dL (8.4-10.5); CARBON DIOXIDE 23.3 mmol/L (20.0-32)
--- NOTE | 2019-01-28 03:55 | NUR ---
Notified physician and notified of Hemoglobin of 7.8 and wheezing New order received from [facility] for a one time dose of lasix 40mg iv, and 2 more units of packed red blood cells. Both physicians also notified of swelling to groin and abdomen, stated that it was expected.
[2019-01-28] MEDS: NS 1000 ML/KCL 40MEQ 1,000 ML IV SCH ×2 (04:30→16:01)
[2019-01-28] MEDS ORDERED: NS 250ML 250 ML IV ONE ×2 (05:03→08:00)
[2019-01-28 05:13] LABS: HEMOGLOBIN 7.8 g/dL (12.0-15.0)
[2019-01-28] MEDS: HUMULIN R SQ SCH ×2 (07:30→11:30)
--- NOTE | 2019-01-28 07:49 | PRM.PN ---
Subjective Subjective Date: Jan 28, 2019 Time: 07:35 Subjective Patient had episode of HTN yesterday following Cardiac Cath. Patient BP dropped to 70s/40s. Patient given STAT bolus and labs ordered. Hg found to be low and patient required transfusion yesterday and overnight. CT scan of Abdomen shows Hematoma. Patient required 4 units PRBCs overnight. She was given 2 units FFP and all anticoagulation was held. Patient is completing last unit this AM and we are pending post tranfusion H/H. Patient having abdominal tenderness but no other complaints. Labs reviewed. Patient History: Unknown 33 MOTHER 33 FATHER VTE VTE Risk Total Score: >5 VTE Risk Score VTE Risk: Score 0-1 = Low Risk (Aggressive mobilization; early ambulation; no VTE prophylaxis required) Score 2: Moderate Risk (Intermittent/Pneumatic Compression Device OR Lovenox/Heparin/Coumadin) Score 3-4: High Risk (Intermittent/Pneumatic Compression Device AND Lovenox/Heparin/Coumadin) Score > or =5: Highest Risk (Intermittent/Pneumatic Compression Device AND Lovenox/Heparin/Coumadin) Antico:Hep/LMWH/Coum/Xarelto: No Mechanical device ordered: Yes Reasons not ordering prophylax: At risk for falls Review of Systems Allergies: Coded Allergies: codeine (Verified Allergy, Unknown, 03/29/17) Scheduled Albuterol Sulfate (Ventolin Hfa), 18 GM IH Q6HR, (Reported) Carvedilol 3.125MG (Coreg 3.125MG), 1 TAB PO BID, (Reported) Clopidogrel Bisulfate (Plavix), 1 TAB PO DAILY, (Reported) Levetiracetam (Keppra), 500 MG PO BID Montelukast Sodium (Montelukast Sodium), 1 TAB PO HS, (Reported) Nifedipine (Nifedipine Er), 90 MG PO DAILY24, (Reported) Omeprazole (Omeprazole), 40 MG PO DAILY24, (Reported) Potassium Chloride (Potassium Chloride), 20 MEQ PO DAILY24 Sertraline Hcl (Zoloft), 1 TAB PO DAILY, (Reported) Simvastatin (Simvastatin), 1 TAB PO HS Trazodone Hcl (Trazodone Hcl), 1.5 TAB PO HS, (Reported) Umeclidinium Brm/Vilanterol Tr (Anoro Ellipta 62.5-25 Mcg INH), 1 EACH IH DAILY24, (Reported) Objective Vitals and I/O Vital Sign - Last 24 Hours 01/25/19 01/25/19 01/25/19 01/25/19 08:00 08:05 08:15 08:30 Temp 36.7 36.7 36.7 98.1 98.1 98.1 Pulse 58 57 62 67 Resp 15 15 17 16 B/P (MAP) 134/64 (87) 135/68 (90) 173/92 (119) Pulse Ox 99 99 99 99 FiO2 45 01/25/19 01/25/19 01/25/19 01/25/19 08:45 09:00 09:05 09:05 Temp 36.7 36.8 98.1 98.2 Pulse 56 56 58 55 Resp 15 15 15 15 B/P (MAP) 167/72 (103) 131/68 (89) Pulse Ox 100 99 97 99 01/25/19 01/25/19 01/25/19 01/25/19 09:15 09:30 09:45 10:00 Temp 36.8 36.8 36.8 36.8 98.2 98.2 98.2 98.2 Pulse 57 62 55 57 Resp 16 15 16 B/P (MAP) 141/70 (93) 136/59 (84) 145/64 (91) 133/67 (89) Pulse Ox 99 98 97 95 01/25/19 01/25/19 01/25/19 01/25/19 10:10 10:15 10:30 10:42 Temp 36.7 36.7 98.1 98.1 Pulse 55 56 58 Resp 15 17 16 B/P (MAP) 152/72 (98) 158/69 (98) 168/76 Pulse Ox 98 96 98 FiO2 30 01/25/19 01/25/19 01/25/19 01/25/19 10:45 11:00 11:15 11:30 Temp 36.7 36.7 36.7 36.8 98.1 98.1 98.1 98.2 Pulse 54 57 60 65 Resp 15 16 15 15 B/P (MAP) 162/64 (96) 168/76 (106) 172/74 (106) 178/79 (112) Pulse Ox 95 97 97 96 01/25/19 01/25/19 01/25/19 01/25/19 11:45 12:00 12:00 12:00 Temp 36.8 36.8 98.2 98.2 Pulse 66 56 66 Resp 16 18 B/P (MAP) 153/85 (107) 166/76 (106) Pulse Ox 96 99 96 O2 Delivery Mechanical Ventilator FiO2 30 01/25/19 01/25/19 01/25/19 01/25/19 12:15 12:30 12:40 12:40 Temp 36.9 36.9 98.4 98.4 Pulse 67 74 72 72 B/P (MAP) 175/79 (111) 174/84 (114) 180/83 Pulse Ox 95 95 94 01/25/19 01/25/19 01/25/19 01/25/19 12:40 12:40 12:45 13:00 Temp 36.9 98.4 Pulse 70 70 74 68 Resp 20 12 24 B/P (MAP) 176/84 (114) Pulse Ox 94 94 95 95 FiO2 30 28 01/25/19 01/25/19 01/25/19 01/25/19 13:00 13:15 13:16 13:20 Temp 37.0 37.1 37.1 98.6 98.8 98.8 Pulse 67 73 74 72 Resp 16 B/P (MAP) 180/83 (115) 167/71 (103) Pulse Ox 94 95 96 95 FiO2 28 01/25/19 01/25/19 01/25/19 01/25/19 13:30 13:45 13:53 14:00 Temp 37.2 37.3 37.3 37.3 99.0 99.1 99.1 99.1 Pulse 65 70 68 64 B/P (MAP) 148/60 (89) 139/101 (114) 147/64 (91) 149/69 (95) Pulse Ox 94 95 95 94 01/25/19 01/25/19 01/25/19 01/25/19 14:15 14:30 14:45 15:00 Temp 37.4 37.4 37.3 37.3 99.3 99.3 99.1 99.1 Pulse 66 77 76 75 Resp 20 16 19 B/P (MAP) 147/67 (93) 125/60 (81) 119/60 (79) 124/64 (84) Pulse Ox 95 94 95 94 301/25/19 01/25/19 01/25/19 15:15 15:30 15:45 16:00 Temp 37.3 37.3 37.3 37.3 99.1 99.1 99.1 99.1 Pulse 83 79 77 78 Resp 25 18 B/P (MAP) 126/61 (82) 118/56 (76) 127/63 (84) 99/53 (68) Pulse Ox 94 93 95 95 01/25/19 01/25/19 01/25/19 01/25/19 16:00 16:15 16:30 16:45 Temp 37.3 37.3 37.3 99.1 99.1 99.1 Pulse 81 76 77 Resp 17 17 13 B/P (MAP) 132/63 (86) 147/59 (88) 143/86 (105) Pulse Ox 95 95 95 O2 Delivery Nasal Cannula O2 Flow Rate 2.00 01/25/19 01/25/19 01/25/19 01/25/19 17:00 17:06 17:15 17:30 Temp 37.3 37.3 37.3 37.3 99.1 99.1 99.1 99.1 Pulse 75 76 79 80 Resp 10 13 19 17 B/P (MAP) 146/115 (125) 142/72 (95) 146/75 (98) 128/66 (86) Pulse Ox 97 93 95 96 01/25/19 01/25/19 01/25/19 01/25/19 17:45 18:00 18:10 18:10 Temp 37.4 37.4 99.3 99.3 Pulse 80 80 75 80 Resp 16 16 B/P (MAP) 146/63 (90) 148/62 (90) Pulse Ox 95 96 97 98 01/25/19 01/25/19 01/25/19 01/25/19 18:15 18:30 19:00 19:00 Temp 37.3 37.3 37.3 99.1 99.1 99.1 Pulse 80 79 77 Resp 29 B/P (MAP) 151/65 (93) 165/73 (103) 154/112 (126) Pulse Ox 96 96 96 O2 Delivery Nasal Cannula O2 Flow Rate 2.00 01/25/19 01/25/19 01/25/19 01/25/19 19:15 19:30 19:45 20:00 Temp 37.2 37.2 37.3 99.0 99.0 99.1 Pulse 82 76 77 79 Resp 22 11 11 18 B/P (MAP) 146/76 (99) 147/56 (86) 159/78 (105) Pulse Ox 96 96 96 98 O2 Delivery Nasal Cannula O2 Flow Rate 2.00 FiO2 28 01/25/19 01/25/19 01/25/19 01/25/19 20:00 20:00 20:15 20:15 Temp 37.3 37.2 99.1 99.0 Pulse 79 80 81 80 Resp 18 18 18 12 B/P (MAP) 161/78 (105) Pulse Ox 98 96 99 98 01/25/19 01/25/19 01/25/19 01/25/19 20:30 20:45 21:00 21:05 Pulse 83 82 89 98 Resp 11 23 15 B/P (MAP) 165/77 (106) 142/65 (90) 153/62 Pulse Ox 99 98 98 01/25/19 01/25/19 01/25/19 01/25/19 21:15 21:30 21:45 22:00 Pulse 91 95 97 100 Resp 18 18 40 15 B/P (MAP) 153/62 (92) 173/97 (122) Pulse Ox 98 99 97 95 01/25/19 01/25/19 01/25/19 01/25/19 22:15 22:30 22:45 23:00 Pulse 96 95 91 96 Resp 14 20 15 19 B/P (MAP) 162/83 (109) 150/79 (102) Pulse Ox 98 97 99 97 01/25/19 01/25/19 01/25/19 01/25/19 23:00 23:13 23:15 23:30 Pulse 96 93 101 Resp 21 20 B/P (MAP) 160/74 160/74 (102) Pulse Ox 98 97 O2 Delivery Nasal Cannula O2 Flow Rate 2.00 01/25/19 01/26/19 01/26/19 01/26/19 23:45 00:00 00:15 00:45 Pulse 92 95 101 110 Resp 14 20 12 12 B/P (MAP) 138/61 (86) Pulse Ox 96 97 96 93 01/26/19 01/26/19 01/26/19 01/26/19 01:00 01:10 01:15 01:21 Pulse 115 107 106 102 Resp 16 28 24 21 B/P (MAP) 171/96 (121) 159/86 (110) Pulse Ox 93 88 91 89 01/26/19 01/26/19 01/26/19 01/26/19 01:30 01:30 01:45 02:00 Pulse 114 118 116 122 Resp 18 30 19 B/P (MAP) 176/94 (121) 171/96 Pulse Ox 93 88 92 01/26/19 01/26/19 01/26/19 01/26/19 02:00 02:15 02:30 02:45 Pulse 117 123 118 109 Resp 14 16 17 23 B/P (MAP) 145/52 (83) 119/62 (81) Pulse Ox 92 91 89 90 01/26/19 01/26/19 01/26/19 01/26/19 03:00 03:15 03:30 03:45 Pulse 116 117 111 112 Resp 24 20 17 11 B/P (MAP) 137/70 (92) 146/76 (99) 124/59 (80) 126/59 (81) Pulse Ox 88 86 86 86 01/26/19 01/26/19 01/26/19 01/26/19 04:00 04:00 04:15 04:30 Temp 99.4 99.4 Pulse 107 102 102 Resp 17 16 15 B/P (MAP) 123/50 (74) 116/52 (73) 120/59 (79) Pulse Ox 86 89 88 O2 Delivery Nasal Cannula O2 Flow Rate 2.00 01/26/19 01/26/19 01/26/19 01/26/19 04:45 04:45 05:00 05:00 Pulse 106 103 105 104 Resp 15 18 16 16 B/P (MAP) 125/59 (81) 119/49 (72) Pulse Ox 89 88 89 93 01/26/19 01/26/19 01/26/19 01/26/19 05:15 05:30 05:45 06:00 Pulse 105 102 89 89 Resp 16 19 17 14 B/P (MAP) 119/56 (77) 127/64 (85) 127/56 (79) 126/59 (81) Pulse Ox 92 89 91 92 Intake and Output 01/25/19 01/25/19 01/26/19 14:59 22:59 06:59 Intake Total 2244 ml Output Total 800 ml 400 ml Balance -800 ml 1844 ml General: Alert, Oriented X3, Cooperative, No acute distress HEENT: Atraumatic, PERRLA, EOMI, Mucous membr. moist/pink Neck: Supple, No JVD Lungs: Clear to auscultation, Normal air movement Heart: Normal S1, Normal S2 Abdomen: Normal bowel sounds, Soft, Other (tenderness to palpation diffusely) Extremities: No clubbing, No cyanosis, Normal pulses, No tenderness/swelling Skin: No rashes, No breakdown, No significant lesion Neuro: Normal speech, Strength at 5/5 X4 ext, Normal tone, Sensation intact, Cranial nerves 3-12 NL Psych/Mental Status: Mental status NL, Mood NL All Results(Lab/Rad) Laboratory Tests Test 01/25/19 08:00 01/25/19 13:10 01/25/19 13:35 01/25/19 18:50 Blood Gas Sample Site LEFT BRACHIAL ARTRY Blood Gas pH 7.331 Blood Gas PCO2 35.6 mmHg Blood Gas PO2 107.4 mmHg Blood Gas HCO3 18.4 mmol/L Blood Gas Base Excess -6.8 mmol/L Jose Test N/A Arterial Blood Oxygen Saturation 96.8 % Deoxyhemoglobin 3.2 % Carboxyhemoglobin 0.6 % Methemoglobin 0.3 % Total Hemoglobin 11.3 % Total Oxygen Concentration 15.4 % Lactic Acid (Blood Gas) 1.2 MMOL/L Blood Gas Temperature 37 Blood Gas Vent Mode SIMV Blood Gas Vent Rate 15 FiO2 45 % Blood Gas Tidal Volume 450 ML Blood Gas PEEP 5 CMH2O Blood Gas Pressure Support 10 CMH2O Bicarbonate 19.5 mmol/L White Blood Count 10.6 10^3/uL Red Blood Count 3.98 10^6/uL Hemoglobin 11.8 g/dL Hematocrit 35.2 % Mean Corpuscular Volume 88.4 fL Mean Corpuscular Hemoglobin 29.6 pg Mean Corpuscular Hemoglobin Concent 33.5 g/dL Red Cell Distribution Width 14.2 % Platelet Count 242 10^3/uL Mean Platelet Volume 11.1 fL Neutrophils (%) (Auto) 90.9 % Lymphocytes (%) (Auto) 6.2 % Monocytes (%) (Auto) 1.7 % Neutrophils # (Auto) 9.7 10^3/uL Lymphocytes # (Auto) 0.7 10^3/uL Monocytes # (Auto) 0.2 10^3/uL Absolute Immature Granulocyte (auto 0.03 10^3 u/L Eosinophils % 0.6 % Basophils % 0.3 % Basophils # 0.0 10^3/uL Eosinophil Count 0.1 10^3/uL Troponin I 1.27 ng/mL 0.90 ng/mL Pro-B-Type Natriuretic Peptide 86721 pg/mL Percent Immature Gran (Cell Imm) 0.30 % Differential Total Cells Counted 100 #CELLS Segmented Neutrophils 92 % Band Neutrophils 1 % Lymphocytes 7 % Platelet Morphology NORMAL Poikilocytosis 1+ Anisocytosis 1+ Test 01/26/19 01:31 01/26/19 04:50 01/26/19 04:58 01/26/19 05:32 Vancomycin Level Trough 22.8 ug/mL Blood Gas Sample Site RT BRACIAL ARTERY Blood Gas pH 7.386 Blood Gas PCO2 26.3 mmHg Blood Gas PO2 73.0 mmHg Blood Gas HCO3 15.4 mmol/L Blood Gas Base Excess -8.2 mmol/L Jose Test N/A Arterial Blood Oxygen Saturation 93.5 % Deoxyhemoglobin 6.4 % Carboxyhemoglobin 1.1 % Methemoglobin 0.5 % Total Hemoglobin 11.0 % Total Oxygen Concentration 14.3 % Lactic Acid (Blood Gas) 1.9 MMOL/L Blood Gas Temperature 37.0 Oxygen Delivery Method (LAB) NASAL CANNULA FiO2 0.32 % Bicarbonate 16.2 mmol/L White Blood Count 10.8 10^3/uL Red Blood Count 3.42 10^6/uL Hemoglobin 10.3 g/dL Hematocrit 30.7 % Mean Corpuscular Volume 89.8 fL Mean Corpuscular Hemoglobin 30.1 pg Mean Corpuscular Hemoglobin Concent 33.6 g/dL Red Cell Distribution Width 14.2 % Platelet Count 225 10^3/uL Mean Platelet Volume 11.1 fL Neutrophils (%) (Auto) 89.8 % Lymphocytes (%) (Auto) 6.2 % Monocytes (%) (Auto) 3.8 % Neutrophils # (Auto) 9.7 10^3/uL Lymphocytes # (Auto) 0.7 10^3/uL Monocytes # (Auto) 0.4 10^3/uL Absolute Immature Granulocyte (auto 0.02 10^3 u/L Eosinophils % 0.0 % Basophils % 0.0 % Basophils # 0.0 10^3/uL Eosinophil Count 0.0 10^3/uL Sodium Level 139 mmol/L Potassium Level 3.4 mmol/L Chloride Level 108.0 mmol/L Carbon Dioxide Level 18.9 mmol/L Anion Gap 15.5 Blood Urea Nitrogen 21 mg/dL Creatinine 1.43 mg/dL Estimated GFR () 44.3 BUN/Creatinine Ratio 14.0 Glucose Level 143 mg/dL Hemoglobin A1c 5.8 % Calcium Level 9.2 mg/dL Total Bilirubin 0.3 mg/dL Aspartate Amino Transf (AST/SGOT) 19 U/L Alanine Aminotransferase (ALT/SGPT) 11 U/L Alkaline Phosphatase 110 U/L Total Protein 6.2 g/dL Albumin 2.7 g/dL Globulin 3.5 Triglycerides Level 64 mg/dL Cholesterol Level 223 mg/dL LDL Cholesterol, Calculated 163.2 VLDL Cholesterol 12.8 HDL Cholesterol 47 mg/dL Cholesterol Ratio (LDL/HDL) 4.167824 Percent Immature Gran (Cell Imm) 0.20 % Differential Total Cells Counted 100 #CELLS Segmented Neutrophils 84 % Lymphocytes 14 % Monocytes 2 % Current Medications Medications (Trade) Dose Ordered Sig/Jacques Route PRN Reason Start Time Stop Time Status Last Admin Dose Admin Propofol 100 ml @ ud STK-MED ONCE IV 01/25/19 01:10 01/25/19 01:12 DC Propofol (Diprivan) 200 mg STK-MED ONCE IV 01/25/19 01:10 01/25/19 01:12 DC Sodium Chloride 1,000 ml @ 0 mls/hr Q0M STAT IV 01/25/19 01:31 01/25/19 01:34 DC 01/25/19 01:48 Albuterol/ Ipratropium (Duoneb 0.5 Mg-3 Mg/3 ml Soln) 3 ml STK-MED ONCE IH 01/25/19 01:35 01/25/19 01:36 DC Albuterol Sulfate (Ventolin) 2.5 mg STK-MED ONCE IH 01/25/19 01:35 01/25/19 01:36 DC Albuterol/ Ipratropium (Duoneb 0.5 Mg-3 Mg/3 ml Soln) 3 ml STAT STAT IH 01/25/19 01:58 01/25/19 02:00 DC 01/25/19 02:07 Albuterol Sulfate (Ventolin) 2.5 mg STAT STAT IH 01/25/19 01:58 01/25/19 02:00 DC 01/25/19 02:07 Vancomycin HCl 900 mg/Sodium Chloride 100 ml @ 100 mls/hr Q8H IV 01/25/19 02:30 01/25/19 08:38 DC 01/25/19 03:09 Piperacillin Sod/ Tazobactam Sod 3.375 gm/Sodium Chloride 100 ml @ 100 mls/hr Q6H IV 01/25/19 02:30 02/24/19 02:29 01/26/19 02:30 Albuterol/ Ipratropium (Duoneb 0.5 Mg-3 Mg/3 ml Soln) 3 ml RTQ4 IH 01/25/19 05:00 02/24/19 04:59 01/26/19 05:37 Enoxaparin Sodium (Lovenox) 40 mg DAILY SQ 01/25/19 09:00 02/24/19 08:59 01/25/19 09:00 Pantoprazole Sodium (Protonix Iv) 40 mg DAILY IV 01/25/19 09:00 02/24/19 08:59 01/25/19 09:00 Propofol (Diprivan) 1,000 mg PRN PRN IV SEDATION 01/25/19 03:00 02/24/19 02:59 01/25/19 07:07 Sodium Chloride 1,000 ml @ 125 mls/hr Q8H IV 01/25/19 03:30 02/24/19 03:29 01/26/19 00:18 Sodium Chloride 100 ml @ ud STK-MED ONCE IV 01/25/19 03:11 01/25/19 03:12 DC Sodium Chloride 2,000 ml @ ud STK-MED ONCE .ROUTE 01/25/19 03:11 01/25/19 03:12 DC Sodium Chloride 250 ml @ ud STK-MED ONCE IV 01/25/19 03:11 01/25/19 03:12 DC Vancomycin HCl 1 ml @ ud STK-MED ONCE .ROUTE 01/25/19 03:11 01/25/19 03:13 DC Piperacillin Sod/ Tazobactam Sod (Zosyn 3.375 Gram Vial) 3.375 gm STK-MED ONCE IV 01/25/19 03:12 01/25/19 03:13 DC Sterile Water (Water) 1,000 ml STK-MED ONCE .ROUTE 01/25/19 06:54 01/25/19 06:55 DC Sodium Chloride 100 ml @ ud STK-MED ONCE IV 01/25/19 07:31 01/25/19 07:32 DC Piperacillin Sod/ Tazobactam Sod (Zosyn 3.375 Gram Vial) 3.375 gm STK-MED ONCE IV 01/25/19 07:31 01/25/19 07:32 DC Pantoprazole Sodium (Protonix Iv) 40 mg STK-MED ONCE IV 01/25/19 07:35 01/25/19 07:36 DC Enoxaparin Sodium (Lovenox) 40 mg STK-MED ONCE SQ 01/25/19 07:35 01/25/19 07:37 DC Vancomycin HCl 0.9 gm/Sodium Chloride 250 ml @ 175 mls/hr Q8H IV 01/25/19 10:00 01/26/19 07:49 DC 01/25/19 18:00 Sodium Chloride 500 ml @ ud STK-MED ONCE IV 01/25/19 09:05 01/25/19 09:06 DC Sodium Chloride 500 ml @ 500 mls/hr Q1H ONCE IV 01/25/19 09:30 01/25/19 10:29 DC 01/25/19 09:09 Methylprednisolone Sodium Succinate (Solu-Medrol) 60 mg Q6 IV 01/25/19 09:30 02/24/19 09:29 01/26/19 05:59 Insulin Human Regular (Humulin R) Give 30 minutes before meal ACHS SQ 01/25/19 11:30 01/25/19 20:45 DC Dextrose (Dextrose 50%-Water Syringe) 25 ml STAT PRN IV [id number] 01/25/19 10:00 02/24/19 09:59 Insulin Glargine (Lantus) 20 unit HS SQ 01/25/19 10:00 02/24/19 09:59 Future Hold 01/25/19 09:54 Furosemide (Lasix) 20 mg STK-MED ONCE .ROUTE 01/25/19 10:30 01/25/19 10:31 DC Furosemide (Lasix) 20 mg OT ONCE IV 01/25/19 11:00 3/3/19 11:01 DC 01/25/19 10:42 Carvedilol (Coreg) 3.125 mg BID PO 01/25/19 21:00 01/26/19 07:49 DC 01/25/19 21:05 Clopidogrel Bisulfate (Plavix) 75 mg DAILY PO 01/26/19 09:00 02/25/19 08:59 Levetiracetam (Keppra) 500 mg BID PO 01/25/19 12:31 02/24/19 12:30 01/25/19 21:05 Nifedipine (Procardia) 30 mg BID PO 01/25/19 12:00 02/24/19 11:59 01/25/19 21:05 Pantoprazole Sodium (Protonix) 40 mg DAILY PO 01/25/19 12:28 01/25/19 12:55 DC Potassium Chloride (Klor-Con 10) 20 meq DAILY24 PO 01/25/19 12:00 02/24/19 11:59 01/25/19 12:00 Sertraline HCl (Zoloft) 100 mg DAILY PO 01/26/19 09:00 02/25/19 08:59 Simvastatin (Zocor) 40 mg HS PO 01/25/19 21:00 02/24/19 20:59 01/25/19 21:05 Hydralazine HCl (Apresoline) 10 mg Q4HR PRN IV HYPERTENSION 01/25/19 12:30 02/24/19 12:29 01/25/19 23:13 Hydralazine HCl (Apresoline) 10 mg STK-MED ONCE .ROUTE 01/25/19 12:29 01/25/19 12:31 DC Hydralazine HCl (Apresoline) 20 mg STK-MED ONCE .ROUTE 01/25/19 12:31 01/25/19 12:32 DC Aspirin (Aspirin) 81 mg DAILY PO 01/25/19 13:00 02/24/19 12:59 01/25/19 13:00 Insulin Human Regular (Humulin R) Give 30 minutes before meal ACHS SQ 01/25/19 21:00 02/24/19 20:59 01/25/19 21:00 Ibuprofen (Motrin) 800 mg Q6H PRN PO PAIN 01/25/19 23:30 02/24/19 23:29 01/26/19 00:10 Acetaminophen (Tylenol) 1,000 mg Q6HR PRN PO PAIN 01/26/19 00:30 02/25/19 00:29 01/26/19 00:33 Lorazepam (Ativan) 2 mg STK-MED ONCE .ROUTE 01/26/19 01:43 01/26/19 01:45 DC Lorazepam (Ativan) 1 mg STAT STAT IV 01/26/19 01:45 01/26/19 01:46 DC 01/26/19 01:45 Metoprolol Tartrate (Lopresser) 5 mg STK-MED ONCE .ROUTE 01/26/19 01:58 01/26/19 02:00 DC Metoprolol Tartrate (Lopresser) 5 mg STAT STAT IVP 01/26/19 02:00 01/26/19 02:13 DC 01/26/19 02:00 Morphine Sulfate (Morphine Sulfate) 4 mg STK-MED ONCE .ROUTE 01/26/19 02:48 01/26/19 02:49 DC Morphine Sulfate (Duramorph) 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 Q4H PRN IV PAIN 01/26/19 03:00 02/25/19 02:59 UNV 01/26/19 02:59 Azithromycin 500 mg/Sodium Chloride 250 ml @ 175 mls/hr Q24HRS IV 01/26/19 08:00 02/25/19 07:59 UNV Course Sepsis Screening Results: Posi: POSITIVE Sepsis Qualifier/Stage: SEPSIS RISK Duration or Total Time Spent w: 90 Vitals & review Data Vital Sign - Last 24 Hours 01/25/19 01/25/19 01/25/19 01/25/19 08:00 08:05 08:15 08:30 Temp 36.7 36.7 36.7 98.1 98.1 98.1 Pulse 58 57 62 67 Resp 15 15 17 16 B/P (MAP) 134/64 (87) 135/68 (90) 173/92 (119) Pulse Ox 99 99 99 99 FiO2 45 01/25/19 01/25/19 01/25/19 01/25/19 08:45 09:00 09:05 09:05 Temp 36.7 36.8 98.1 98.2 Pulse 56 56 58 55 Resp 15 15 15 15 B/P (MAP) 167/72 (103) 131/68 (89) Pulse Ox 100 99 97 99 01/25/19 01/25/19 01/25/19 01/25/19 09:15 09:30 09:45 10:00 Temp 36.8 36.8 36.8 36.8 98.2 98.2 98.2 98.2 Pulse 57 62 55 57 Resp 16 15 16 B/P (MAP) 141/70 (93) 136/59 (84) 145/64 (91) 133/67 (89) Pulse Ox 99 98 97 95 01/25/19 01/25/19 01/25/19 01/25/19 10:10 10:15 10:30 10:42 Temp 36.7 36.7 98.1 98.1 Pulse 55 56 58 Resp 15 17 16 B/P (MAP) 152/72 (98) 158/69 (98) 168/76 Pulse Ox 98 96 98 FiO2 30 01/25/19 01/25/19 01/25/19 01/25/19 10:45 11:00 11:15 11:30 Temp 36.7 36.7 36.7 36.8 98.1 98.1 98.1 98.2 Pulse 54 57 60 65 Resp 15 16 15 15 B/P (MAP) 162/64 (96) 168/76 (106) 172/74 (106) 178/79 (112) Pulse Ox 95 97 97 96 01/25/19 01/25/19 01/25/19 01/25/19 11:45 12:00 12:00 12:00 Temp 36.8 36.8 98.2 98.2 Pulse 66 56 66 Resp 16 18 B/P (MAP) 153/85 (107) 166/76 (106) Pulse Ox 96 99 96 O2 Delivery Mechanical Ventilator FiO2 30 01/25/19 01/25/19 01/25/19 01/25/19 12:15 12:30 12:40 12:40 Temp 36.9 36.9 98.4 98.4 Pulse 67 74 72 72 B/P (MAP) 175/79 (111) 174/84 (114) 180/83 Pulse Ox 95 95 94 01/25/19 01/25/19 01/25/19 01/25/19 12:40 12:40 12:45 13:00 Temp 36.9 98.4 Pulse 70 70 74 68 Resp 20 12 24 B/P (MAP) 176/84 (114) Pulse Ox 94 94 95 95 FiO2 30 28 01/25/19 01/25/19 01/25/19 01/25/19 13:00 13:15 13:16 13:20 Temp 37.0 37.1 37.1 98.6 98.8 98.8 Pulse 67 73 74 72 Resp 16 B/P (MAP) 180/83 (115) 167/71 (103) Pulse Ox 94 95 96 95 FiO2 28 01/25/19 01/25/19 01/25/19 01/25/19 13:30 13:45 13:53 14:00 Temp 37.2 37.3 37.3 37.3 99.0 99.1 99.1 99.1 Pulse 65 70 68 64 B/P (MAP) 148/60 (89) 139/101 (114) 147/64 (91) 149/69 (95) Pulse Ox 94 95 95 94 01/25/19 01/25/19 01/25/19 01/25/19 14:15 14:30 14:45 15:00 Temp 37.4 37.4 37.3 37.3 99.3 99.3 99.1 99.1 Pulse 66 77 76 75 Resp 20 16 19 B/P (MAP) 147/67 (93) 125/60 (81) 119/60 (79) 124/64 (84) Pulse Ox 95 94 95 94 01/25/19 01/25/19 01/25/19 01/25/19 15:15 15:30 15:45 16:00 Temp 37.3 37.3 37.3 37.3 99.1 99.1 99.1 99.1 Pulse 83 79 77 78 Resp 19 19 25 18 B/P (MAP) 126/61 (82) 118/56 (76) 127/63 (84) 99/53 (68) Pulse Ox 94 93 95 95 01/25/19 01/25/19 01/25/19 01/25/19 16:00 16:15 16:30 16:45 Temp 37.3 37.3 37.3 99.1 99.1 99.1 Pulse 81 76 77 Resp 17 17 13 B/P (MAP) 132/63 (86) 147/59 (88) 143/86 (105) Pulse Ox 95 95 95 O2 Delivery Nasal Cannula O2 Flow Rate 2.00 01/25/19 01/25/19 01/25/19 01/25/19 17:00 17:06 17:15 17:30 Temp 37.3 37.3 37.3 37.3 99.1 99.1 99.1 99.1 Pulse 75 76 79 80 Resp 10 13 19 17 B/P (MAP) 146/115 (125) 142/72 (95) 146/75 (98) 128/66 (86) Pulse Ox 97 93 95 96 01/25/19 01/25/19 01/25/19 01/25/19 17:45 18:00 18:10 18:10 Temp 37.4 37.4 99.3 99.3 Pulse 80 80 75 80 Resp 19 16 16 B/P (MAP) 146/63 (90) 148/62 (90) Pulse Ox 95 96 97 98 01/25/19 01/25/19 01/25/19 01/25/19 18:15 18:30 19:00 19:00 Temp 37.3 37.3 37.3 99.1 99.1 99.1 Pulse 80 79 77 Resp 17 23 29 B/P (MAP) 151/65 (93) 165/73 (103) 154/112 (126) Pulse Ox 96 96 96 O2 Delivery Nasal Cannula O2 Flow Rate 2.00 01/25/19 01/25/19 01/25/19 01/25/19 19:15 19:30 19:45 20:00 Temp 37.2 37.2 37.3 99.0 99.0 99.1 Pulse 82 76 77 79 Resp 22 11 11 18 B/P (MAP) 146/76 (99) 147/56 (86) 159/78 (105) Pulse Ox 96 96 96 98 O2 Delivery Nasal Cannula O2 Flow Rate 2.00 FiO2 28 01/25/19 01/25/19 01/25/19 01/25/19 20:00 20:00 20:15 20:15 Temp 37.3 37.2 99.1 99.0 Pulse 79 80 81 80 Resp 18 18 18 12 B/P (MAP) 161/78 (105) Pulse Ox 98 96 99 98 3/301/25/19 01/25/19 01/25/19 20:30 20:45 21:00 21:05 Pulse 83 82 89 98 Resp 11 23 15 B/P (MAP) 165/77 (106) 142/65 (90) 153/62 Pulse Ox 99 98 98 01/25/19 01/25/19 01/25/19 01/25/19 21:15 21:30 21:45 22:00 Pulse 91 95 97 100 Resp 18 18 40 15 B/P (MAP) 153/62 (92) 173/97 (122) Pulse Ox 98 99 97 95 01/25/19 01/25/19 01/25/19 01/25/19 22:15 22:30 22:45 23:00 Pulse 96 95 91 96 Resp 14 20 15 19 B/P (MAP) 162/83 (109) 150/79 (102) Pulse Ox 98 97 99 97 01/25/19 01/25/19 01/25/19 01/25/19 23:00 23:13 23:15 23:30 Pulse 96 93 101 Resp 21 20 B/P (MAP) 160/74 160/74 (102) Pulse Ox 98 97 O2 Delivery Nasal Cannula O2 Flow Rate 2.00 01/25/19 01/26/19 01/26/19 01/26/19 23:45 00:00 00:15 00:45 Pulse 92 95 101 110 Resp 14 20 12 12 B/P (MAP) 138/61 (86) Pulse Ox 96 97 96 93 01/26/19 01/26/19 01/26/19 01/26/19 01:00 01:10 01:15 01:21 Pulse 115 107 106 102 Resp 16 28 24 21 B/P (MAP) 171/96 (121) 159/86 (110) Pulse Ox 93 88 91 89 01/26/19 01/26/19 01/26/19 01/26/19 01:30 01:30 01:45 02:00 Pulse 114 118 116 122 Resp 18 30 19 B/P (MAP) 176/94 (121) 171/96 Pulse Ox 93 88 92 01/26/19 01/26/19 01/26/19 01/26/19 02:00 02:15 02:30 02:45 Pulse 117 123 118 109 Resp 14 16 17 23 B/P (MAP) 145/52 (83) 119/62 (81) Pulse Ox 92 91 89 90 01/26/19 01/26/19 01/26/19 01/26/19 03:00 03:15 03:30 03:45 Pulse 116 117 111 112 Resp 24 20 17 11 B/P (MAP) 137/70 (92) 146/76 (99) 124/59 (80) 126/59 (81) Pulse Ox 88 86 86 86 01/26/19 01/26/19 01/26/19 01/26/19 04:00 04:00 04:15 04:30 Temp 99.4 99.4 Pulse 107 102 102 Resp 17 16 15 B/P (MAP) 123/50 (74) 116/52 (73) 120/59 (79) Pulse Ox 86 89 88 O2 Delivery Nasal Cannula O2 Flow Rate 2.00 01/26/19 01/26/19 01/26/19 01/26/19 04:45 04:45 05:00 05:00 Pulse 106 103 105 104 Resp 15 18 16 16 B/P (MAP) 125/59 (81) 119/49 (72) Pulse Ox 89 88 89 93 01/26/19 01/26/19 01/26/19 01/26/19 05:15 05:30 05:45 06:00 Pulse 105 102 89 89 Resp 16 19 17 14 B/P (MAP) 119/56 (77) 127/64 (85) 127/56 (79) 126/59 (81) Pulse Ox 92 89 91 92 Intake and Output 01/25/19 01/25/19 01/26/19 14:59 22:59 06:59 Intake Total 2244 ml Output Total 800 ml 400 ml Balance -800 ml 1844 ml Laboratory Tests Test 01/25/19 01:10 01/25/19 01:15 01/25/19 01:31 01/25/19 02:12 Blood Gas Sample Site LEFT RADIAL ARTERY Blood Gas pH 7.188 Blood Gas PCO2 46.6 mmHg Blood Gas PO2 179.8 mmHg Blood Gas HCO3 17.3 mmol/L Blood Gas Base Excess -10.7 mmol/L Jose Test POSITIVE Arterial Blood Oxygen Saturation 98.5 % Deoxyhemoglobin 1.4 % Carboxyhemoglobin 5.0 % Methemoglobin 0.4 % Total Hemoglobin 13.3 % Total Oxygen Concentration 17.8 % Lactic Acid (Blood Gas) 3.7 MMOL/L Blood Gas Temperature 37.0 Oxygen Delivery Method (LAB) VENT Blood Gas Vent Mode SIMV Blood Gas Vent Rate 15 FiO2 0.75 % Blood Gas Tidal Volume 450 ML Blood Gas PEEP 5.0 CMH2O Blood Gas Pressure Support 10 CMH2O Bicarbonate 18.7 mmol/L Sodium Level 142 mmol/L Potassium Level 3.6 mmol/L Chloride Level 105.0 mmol/L Carbon Dioxide Level 21.1 mmol/L Anion Gap 19.5 Blood Urea Nitrogen 19 mg/dL Creatinine 1.41 mg/dL Estimated GFR () 45.0 BUN/Creatinine Ratio 13.0 Glucose Level 245 mg/dL Calcium Level 9.4 mg/dL Total Bilirubin 0.2 mg/dL Aspartate Amino Transf (AST/SGOT) 15 U/L Alanine Aminotransferase (ALT/SGPT) 10 U/L Alkaline Phosphatase 158 U/L Total Creatine Kinase 59 U/L Troponin I 0.76 ng/mL Total Protein 7.3 g/dL Albumin 3.1 g/dL Globulin 4.2 White Blood Count 9.0 10^3/uL Red Blood Count 4.17 10^6/uL Hemoglobin 12.4 g/dL Hematocrit 37.6 % Mean Corpuscular Volume 90.2 fL Mean Corpuscular Hemoglobin 29.7 pg Mean Corpuscular Hemoglobin Concent 33.0 g/dL Red Cell Distribution Width 14.0 % Platelet Count 303 10^3/uL Mean Platelet Volume 10.9 fL Neutrophils (%) (Auto) 46.5 % Lymphocytes (%) (Auto) 38.2 % Monocytes (%) (Auto) 10.0 % Neutrophils # (Auto) 4.2 10^3/uL Lymphocytes # (Auto) 3.4 10^3/uL Monocytes # (Auto) 0.9 10^3/uL Absolute Immature Granulocyte (auto 0.06 10^3 u/L Eosinophils % 4.0 % Basophils % 0.6 % Basophils # 0.1 10^3/uL Eosinophil Count 0.4 10^3/uL Percent Immature Gran (Cell Imm) 0.70 % Urine Collection Type CCMS Urine Color YELLOW Urine Appearance CLOUDY Urine Bilirubin NEGATIVE MG/DL Urine Ketones NEGATIVE Urine Specific Voca 1.025 Urine pH 5 Urine Protein 500 mg/dL Urine Urobilinogen NORMAL Urine Nitrate NEGATIVE Urine Leukocyte Esterase NEGATIVE Urine Blood 10 TR Urine RBC NONE SEEN RBC/HPF Urine WBC 5-10 WBC/HPF Urine Squamous Epithelial Cells MODERATE #/HPF Urine Amorphous Sediment LARGE Urine Bacteria FEW Urine Other MUCUS 1+ #/HPF Urine Glucose NORMAL Test 01/25/19 04:30 01/25/19 08:00 01/25/19 13:10 01/25/19 13:35 Blood Gas Sample Site LEFT BRACHIAL ARTRY LEFT BRACHIAL ARTRY Blood Gas pH 7.349 7.331 Blood Gas PCO2 32.0 mmHg 35.6 mmHg Blood Gas PO2 103.3 mmHg 107.4 mmHg Blood Gas HCO3 17.2 mmol/L 18.4 mmol/L Blood Gas Base Excess -7.4 mmol/L -6.8 mmol/L Jose Test N/A N/A Arterial Blood Oxygen Saturation 96.9 % 96.8 % Deoxyhemoglobin 3.0 % 3.2 % Carboxyhemoglobin 1.6 % 0.6 % Methemoglobin 0.3 % 0.3 % Total Hemoglobin 11.7 % 11.3 % Total Oxygen Concentration 15.8 % 15.4 % Lactic Acid (Blood Gas) 0.8 MMOL/L 1.2 MMOL/L Blood Gas Temperature 37.0 37 Oxygen Delivery Method (LAB) VENT Blood Gas Vent Mode SIMV SIMV Blood Gas Vent Rate 15 15 FiO2 0.45 % 45 % Blood Gas Tidal Volume 450 ML 450 ML Blood Gas PEEP 5.0 CMH2O 5 CMH2O Blood Gas Pressure Support 10 CMH2O 10 CMH2O Bicarbonate 18.2 mmol/L 19.5 mmol/L White Blood Count 10.6 10^3/uL Red Blood Count 3.98 10^6/uL Hemoglobin 11.8 g/dL Hematocrit 35.2 % Mean Corpuscular Volume 88.4 fL Mean Corpuscular Hemoglobin 29.6 pg Mean Corpuscular Hemoglobin Concent 33.5 g/dL Red Cell Distribution Width 14.2 % Platelet Count 242 10^3/uL Mean Platelet Volume 11.1 fL Neutrophils (%) (Auto) 90.9 % Lymphocytes (%) (Auto) 6.2 % Monocytes (%) (Auto) 1.7 % Neutrophils # (Auto) 9.7 10^3/uL Lymphocytes # (Auto) 0.7 10^3/uL Monocytes # (Auto) 0.2 10^3/uL Absolute Immature Granulocyte (auto 0.03 10^3 u/L Eosinophils % 0.6 % Basophils % 0.3 % Basophils # 0.0 10^3/uL Eosinophil Count 0.1 10^3/uL Troponin I 1.27 ng/mL Pro-B-Type Natriuretic Peptide 92260 pg/mL Percent Immature Gran (Cell Imm) 0.30 % Differential Total Cells Counted 100 #CELLS Segmented Neutrophils 92 % Band Neutrophils 1 % Lymphocytes 7 % Platelet Morphology NORMAL Poikilocytosis 1+ Anisocytosis 1+ Test 01/25/19 18:50 01/26/19 01:31 01/26/19 04:50 01/26/19 04:58 Troponin I 0.90 ng/mL Vancomycin Level Trough 22.8 ug/mL Blood Gas Sample Site RT BRACIAL ARTERY Blood Gas pH 7.386 Blood Gas PCO2 26.3 mmHg Blood Gas PO2 73.0 mmHg Blood Gas HCO3 15.4 mmol/L Blood Gas Base Excess -8.2 mmol/L Jose Test N/A Arterial Blood Oxygen Saturation 93.5 % Deoxyhemoglobin 6.4 % Carboxyhemoglobin 1.1 % Methemoglobin 0.5 % Total Hemoglobin 11.0 % Total Oxygen Concentration 14.3 % Lactic Acid (Blood Gas) 1.9 MMOL/L Blood Gas Temperature 37.0 Oxygen Delivery Method (LAB) NASAL CANNULA FiO2 0.32 % Bicarbonate 16.2 mmol/L White Blood Count 10.8 10^3/uL Red Blood Count 3.42 10^6/uL Hemoglobin 10.3 g/dL Hematocrit 30.7 % Mean Corpuscular Volume 89.8 fL Mean Corpuscular Hemoglobin 30.1 pg Mean Corpuscular Hemoglobin Concent 33.6 g/dL Red Cell Distribution Width 14.2 % Platelet Count 225 10^3/uL Mean Platelet Volume 11.1 fL Neutrophils (%) (Auto) 89.8 % Lymphocytes (%) (Auto) 6.2 % Monocytes (%) (Auto) 3.8 % Neutrophils # (Auto) 9.7 10^3/uL Lymphocytes # (Auto) 0.7 10^3/uL Monocytes # (Auto) 0.4 10^3/uL Absolute Immature Granulocyte (auto 0.02 10^3 u/L Eosinophils % 0.0 % Basophils % 0.0 % Basophils # 0.0 10^3/uL Eosinophil Count 0.0 10^3/uL Sodium Level 139 mmol/L Potassium Level 3.4 mmol/L Chloride Level 108.0 mmol/L Carbon Dioxide Level 18.9 mmol/L Anion Gap 15.5 Blood Urea Nitrogen 21 mg/dL Creatinine 1.43 mg/dL Estimated GFR () 44.3 BUN/Creatinine Ratio 14.0 Glucose Level 143 mg/dL Hemoglobin A1c 5.8 % Calcium Level 9.2 mg/dL Total Bilirubin 0.3 mg/dL Aspartate Amino Transf (AST/SGOT) 19 U/L Alanine Aminotransferase (ALT/SGPT) 11 U/L Alkaline Phosphatase 110 U/L Total Protein 6.2 g/dL Albumin 2.7 g/dL Globulin 3.5 Triglycerides Level 64 mg/dL Cholesterol Level 223 mg/dL LDL Cholesterol, Calculated 163.2 VLDL Cholesterol 12.8 HDL Cholesterol 47 mg/dL Cholesterol Ratio (LDL/HDL) 4.030466 Percent Immature Gran (Cell Imm) 0.20 % Test 01/26/19 05:32 Differential Total Cells Counted 100 #CELLS Segmented Neutrophils 84 % Lymphocytes 14 % Monocytes 2 % Current Medications Medications (Trade) Dose Ordered Sig/Jacques PRN Reason Start Time Stop Time Status Last Admin Acetaminophen (Tylenol) 1,000 mg Q6HR PRN PAIN 01/26/19 00:30 02/25/19 00:29 01/26/19 00:33 Albuterol/ Ipratropium (Duoneb 0.5 Mg-3 Mg/3 ml Soln) 3 ml RTQ4 01/25/19 05:00 02/24/19 04:59 01/26/19 05:37 Aspirin (Aspirin) 81 mg DAILY 01/25/19 13:00 02/24/19 12:59 01/25/19 13:00 Azithromycin 500 mg/Sodium Chloride 250 ml @ 175 mls/hr Q24HRS 01/26/19 08:00 02/25/19 07:59 UNV Clopidogrel Bisulfate (Plavix) 75 mg DAILY 01/26/19 09:00 02/25/19 08:59 Dextrose (Dextrose 50%-Water Syringe) 25 ml STAT PRN HYPOGLYCEMIA 01/25/19 10:00 02/24/19 09:59 Enoxaparin Sodium (Lovenox) 40 mg DAILY 01/25/19 09:00 02/24/19 08:59 01/25/19 09:00 Hydralazine HCl (Apresoline) 10 mg Q4HR PRN HYPERTENSION 01/25/19 12:30 02/24/19 12:29 01/25/19 23:13 Ibuprofen (Motrin) 800 mg Q6H PRN PAIN 01/25/19 23:30 02/24/19 23:29 01/26/19 00:10 Insulin Glargine (Lantus) 20 unit HS 01/25/19 10:00 02/24/19 09:59 Future Hold 01/25/19 09:54 Insulin Human Regular (Humulin R) Give 30 minutes before meal ACHS 01/25/19 21:00 02/24/19 20:59 01/25/19 21:00 Levetiracetam (Keppra) 500 mg BID 01/25/19 12:31 02/24/19 12:30 01/25/19 21:05 Methylprednisolone Sodium Succinate (Solu-Medrol) 60 mg Q6 01/25/19 09:30 02/24/19 09:29 01/26/19 05:59 Morphine Sulfate (Duramorph) 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 Q4H PRN PAIN 01/26/19 03:00 02/25/19 02:59 UNV 01/26/19 02:59 Nifedipine (Procardia) 30 mg BID 01/25/19 12:00 02/24/19 11:59 01/25/19 21:05 Pantoprazole Sodium (Protonix Iv) 40 mg DAILY 01/25/19 09:00 02/24/19 08:59 01/25/19 09:00 Piperacillin Sod/ Tazobactam Sod 3.375 gm/Sodium Chloride 100 ml @ 100 mls/hr Q6H 01/25/19 02:30 02/24/19 02:29 01/26/19 02:30 Potassium Chloride (Klor-Con 10) 20 meq DAILY24 01/25/19 12:00 02/24/19 11:59 01/25/19 12:00 Propofol (Diprivan) 1,000 mg PRN PRN SEDATION 01/25/19 03:00 02/24/19 02:59 01/25/19 07:07 Sertraline HCl (Zoloft) 100 mg DAILY 01/26/19 09:00 02/25/19 08:59 Simvastatin (Zocor) 40 mg HS 01/25/19 21:00 02/24/19 20:59 01/25/19 21:05 Sodium Chloride 1,000 ml @ 125 mls/hr Q8H 01/25/19 03:30 02/24/19 03:29 01/26/19 00:18 Sepsis Infection Criteria Pres: Documented Infection LEVEL 1 SEPSIS INFECTION CRITE: ABX Therapy LEVEL 2-SIRS (LIST ALL THAT AP: None/Not assessed Cardiovascular Evidence: SBP<90 Hematologic Evidence: None/Not assessed Hepatic Evidence: None/Not assessed Metabolic Evidence: None/Not assessed Neurological Evidence: None/Not assessed Respiratory Evidence: Need for O2 to keep>90%, O2 SAT<90room air Renal Evidence: None/Not assessed O2 Sat by Pulse Oximetry: 97 Respiratory End-tidal CO2: 22 Oxygen Flow Rate: 3.00 Assessment/Plan Assessment/Plan Assessment/Plan Patient is a 68 F PMH of Seizure Disorder, CAD, COPD presenting with respiratory failure from CAP/COPD. Plan 1.) Acute Respiratory Failure: / to CAP/COPD s/p extubation. O2 support via NC @ 3L. Pending CXR this AM. IV abx, IV steroids d/c yesterday. Cont Nebs. 2.) Retroperitoneal Hematoma: Cards following. All anticoagulation d/c. Patient transfused 4units overnight. Completing last unit this AM. Pending post-transfusion H/H. CT reviewed. BP stable. Tenderness to palpation of the abdomen. Defer further recs to Cardiology. 3.) CAP - D/C IV abx, D/C IV steroids. 4.) Renal Failure - Cr improved with IVF/Transfusion. Will monitor urine output. 5.) HTN: cont current regimen. 6. CAD/Elevated Troponins: Patient underwent CATH and PCI with stenting yesterday. Now with Retroperitoneal Hematoma. Holding all anticoagulation. Cont Statin. Restart dAPT per Cardiology recs. 7. PPx: PPI MAGUI CONNER MD Jan 28, 2019 07:49
--- NOTE | 2019-01-28 08:22 | DIREP ---
PROCEDURE:CHEST 1 VIEW COMPARISON:[facility], CR, XRAY CHEST SINGLE VW, 08/11/2018, 10:17 PM. [facility], CR, XRAY CHEST SINGLE VW, 01/27/2019, 08:57 AM. INDICATIONS:dyspnea FINDINGS: LUNGS/PLEURA:Hyperinflation and chronic interstitial changes. Complete or near-complete resolution of right lower lobe pneumonia and pleural effusion. Cardiac leads overlie the right lower lung. A small focal opacity in the left costophrenic angle consistent with atelectasis, infiltrate or effusion. Persistent mild diffuse increased interstitial prominence suggestive of viral pneumonia or mild CHF or volume overload. CARDIAC:Normal cardiac silhouette and normal pulmonary vascularity. Aortic arch calcifications. MEDIASTINUM:Normal. BONES:Normal. OTHER:No additional findings. CONCLUSION: 1. Complete or near-complete resolution of right lower lobe infiltrate and effusion. 2. Development of focal opacity in the left CP angle. 3. Findings suggestive of interstitial pneumonia or edema. 4. COPD Dictated by: Saima Carty MD on 01/28/2019 at 08:17 AM
[2019-01-28] MEDS: PROTONIX IV IV SCH (08:58)
[2019-01-28] MEDS: KEPPRA PO SCH ×2 (08:58→22:23)
[2019-01-28] MEDS: ZOLOFT PO SCH (08:58)
--- NOTE | 2019-01-28 09:02 | NUR ---
GUARD LIEUTENANT PT SEEN IN HOSPITAL ROOM BY THIS NURSE. RIGHT GROIN SITE ASSESSED. DRESSING DRY AND INTACT. NO BRUISING NOTED. SITE SOFT TO TOUCH. VERBAL EDUCATION GIVEN REGARDING CARE OF HEART CATH SITE AT HOME, WEIGHT RESTRICTIONS, AND MEDICATION COMPLIANCE. PT VERBALIZED UNDERSTANDING. DENIES ANY FURTHER QUESTIONS OR NEEDS AT THIS TIME.
[2019-01-28 12:01] LABS: HEMOGLOBIN 9.9 g/dL (12.0-15.0)
[2019-01-28] MEDS: TYLENOL PO PRN ×2 (12:53→17:09)
--- NOTE | 2019-01-28 13:10 | PNH ---
DATE: 01/27/2019 SUBJECTIVE: The patient yesterday on 01/26/2019 in the afternoon became acutely short of breath and was noted to have acute pulmonary edema, metabolic acidosis with decompensation with pH of 7.33 and head and neck vein distention. Blood pressure gone up to 190/100 and I was present at that time and she had coarse rales bilaterally and had significant ST depression and T inversion all across the precordium and the inferior leads and very likely an ischemic substrate with acute pulmonary edema was considered and troponin is elevated, non-ST elevation myocardial infarction is also considered and she was started on IV nitro and her blood pressure did come down, her clinical condition improved, and after 40 mg of Lasix, she had aggressive diuresis, her general condition improved and her creatinine has gone up to 1.67 and she was taken to the director of cath lab today on 01/27/2019 and in the director of cath lab, it was noted that she did have a very critical 80-90% long segment of proximal circumflex stenosis with a very large dominant circumflex and the LAD was type 3 vessel, appears to be patent. The ramus intermedius branch was a small vessel with 50% stenosis proximally. Right coronary artery with subtotal occlusion with reconstitution of the distal right coronary artery. After 99% critical stenosis, there was retrograde flow from the left coronary artery and the distal right coronary artery, LV was dilated with severe global hypokinesis and 30% ejection fraction and hence the patient underwent PCI with deployment of 3.5 x 33 mm stent after PTCA of the right groin and she did have ectasia and atherosclerosis of the aorta and she had a very high blood pressure in the director of cath lab and had 180/90 blood pressure, hydralazine 50 mg was given and she was on Tridil 33 mL and was having significant headache. Tridil was discontinued, hydralazine was given. Subsequently, the patient brought to ICU and she was stable at that time. Her ST depression and T inversions all resolved after she had the PCI and when she was in ICU, around 4:00, she became hypotensive, was complaining of abdominal pain. Her hemoglobin has dropped to 7.6 from 11.2 as of this morning, possibility of retroperitoneal hematoma is considered. CT has been done, it is still awaited. She responded to fluid challenge and her mean arterial pressure was 65 and 2 units of packed cell was given. CT results are awaited. IMPRESSION: Acute pulmonary edema as of yesterday evening, resolved with IV nitro and Lasix and acute coronary ischemic substrate with a non-STEMI with critical circumflex, 90% stenosis, post-PCI and LV systolic dysfunction with 35% ejection fraction and elevated LVEDP of 25 mm. Post-catheterization drop in hemoglobin, possible retroperitoneal hematoma, ectasia of the aorta, CKD class 2. RECOMMENDATIONS: At this time, we will give blood, fluid resuscitation. Hold our blood pressure medicines. Clinically, she appears to be stable and she is comfortable. We will repeat hemoglobin and labs later on. Laxmichand MD Shanna DR: GLYNN/sania JOB# [id number]
--- NOTE | 2019-01-28 13:33 | ECHO ---
DATE OF SERVICE: 01/26/2019 PRIMARY PHYSICIAN: Dr. Villegas. DIAGNOSES: Congestive heart failure, acute pulmonary edema, respiratory failure, coronary ischemia, non-ST elevation myocardial infarction. FINDINGS: Mitral valve shows mitral annular calcification and mitral regurgitation, 3.9 meters velocity with normal E to A ratio. Aortic sclerosis with mild aortic incompetence with a pressure half time of 284 milliseconds, adequate aortic valve opening of 2.37 sq cm and mild tricuspid regurgitation, 2.2 meters velocity. Right ventricular size normal. Right atrium is normal. Left atrium enlarged in 4 chamber longitudinal dimension to 5.5 cm with left atrial volume of 80 mL. Left ventricle is top normal size around 5.49 cm, end diastolic dimension 3.85 cm, end systolic dimension, left ventricular hypertrophy, septum much thicker than the posterior wall. Overall, contractility seems to be decreased about 40% ejection fraction, increased end diastolic 147 mL with normal IVC. Hence, mild global hypokinesis, 40% ejection fraction, left ventricular hypertrophy and normal LV size. Left atrial enlargement, 2+ mitral, tricuspid and aortic incompetence, aortic sclerosis and mitral annular calcification noted. No thrombus in any of the cardiac chambers. Laxmichand MD Shanna DR: GLYNN/sania JOB# [id number]
[2019-01-28 13:58] LABS: BASOPHIL % 0.1 % (0.0-0.2); EOSINOPHIL % 0.3 % (0.0-5.0); HEMOGLOBIN 10.2 g/dL (12.0-15.0); LYMPHOCYTES # 2.4 10^3/uL (1.0-4.8); LYMPHOCYTES % 19.1 % (24.0-44.0); MEAN CELL HGB CONCENTRATION 34.5 g/dL (33-37); MEAN CORP VOLUME 87.1 fL (78-100); MEAN PLATELET VOLUME 10.8 fL (7.8-11.0); MONOCYTES # 1.9 10^3/uL (0.3-0.8); MONOCYTES % 14.8 % (5.0-12.0); NEUTROPHIL # 8.2 10^3/uL (1.8-7.7); NEUTROPHILS % 65.3 % (41.0-85.0); RED CELL DISTRIBUTION WIDTH 14.9 % (11.5-14.5); WHITE BLOOD CELL 12.6 10^3/uL (4.5-11.0)
[2019-01-28 14:20] LABS: CALCIUM 8.2 mg/dL (8.4-10.5)
[2019-01-28] MEDS: APRESOLINE PO SCH ×2 (17:09→22:20)
[2019-01-28] MEDS ORDERED: KLOR-CON 10 PO SCH ×2 (18:00→21:00)
--- NOTE | 2019-01-28 18:50 | NUR ---
REPORT RECEIVED FROM TRINITY PRINCE. PATIENT AWAKE AND ALERT. SITTING UP IN BED. REPORTS MINOR PAIN AT PRESENT IN LOWER ABDOMEN ESPECIALLY ON RIGHT SIDE. SWELLING AND BRUISING NOTED TO PUBIC AREA. ANGIO SEAL DRESSING INTACT TO RIGHT GROIN. NEGATIVE S/S BLEEDING PRESENT. PATIENT PLEASANT AND COOPERATIVE. IV PATENT WITHOUT S/S INFILTRATION LEFT FOREARM. IV FLUIDS INFUSING VIA PUMP AT 50CC/HR. PATIENT WITH 02 PER NC AT 3L. SR UP X2 WITH SR PADDED FOR SEIZURE PRECAUTIONS. FELIZ PRESENT AND SECURED TO RIGHT THIGH. DRAINING CLEAR YELLOW URINE. CALL LIGHT WITHIN REACH.
[2019-01-28] MEDS ORDERED: COREG PO SCH (21:00)
[2019-01-28] MEDS ORDERED: KLOR-CON 10 PO ONE (21:00)
[2019-01-28] MEDS: LIPITOR PO SCH (22:20)
[2019-01-28] MEDS: BRILINTA PO SCH (22:22)
[2019-01-29] VITALS (46 sets, daily range): BP systolic 99–225; BP diastolic 39–127
--- NOTE | 2019-01-29 00:20 | NUR ---
PATIENT C/O ABDOMINAL PAIN. INFORMED PATIENT SHE HAS NORCO ORDERED FOR PAIN. PATIENT STATES "THE HYDROCODONE DOESN'T HELP. THE TYLENOL HELPS THE BEST. I WOULD RATHER JUST HAVE THE TYLENOL." AGREED TO ADMINISTER THE TYLENOL ORDERED. PATIENT RESTING IN BED. SR UP X2. CALL LIGHT WITHIN REACH.
[2019-01-29] MEDS: TYLENOL PO PRN (00:26)
--- NOTE | 2019-01-29 03:28 | NUR ---
PATIENT C/O DIFFICULTY BREATHING. LUNG SOUNDS AUSCULTATED. NO CHANGE FROM PREVIOUS ASSESSMENT. 02 SAT REMAINS 91-92%. PATIENT STATES "MAYBE ITS JUST A PANIC ATTACK. I STILL HURT. THE TYLENOL DIDN'T HELP THIS TIME." OFFERED NORCO OR TYLENOL. PATIENT AGREED TO TRY NORCO.
[2019-01-29] MEDS: NORCO 5MG PO PRN ×4 (03:45→17:54)
--- NOTE | 2019-01-29 04:00 | NUR ---
PATIENT INCONTINENT OF LOOSE MUCOUS LIKE DARK STOOL X3. PATIENT C/O FEELING SOB. 02 SAT 87%. LUNG SOUNDS AUSCULTATED AND WHEEZING NOTED. PATIENT STATES "I AM REALLY HAVING TROUBLE BREATHING." ENCOURAGED PATIENT TO BREATHE SLOW IN THROUGH HER NOSE AND OUT THROUGH HER MOUTH. PATIENT SITTING UP IN BED. UNABLE TO TOLERATE COMPLETION OF NUVIA CARE AFTER BM. NOTIFIED CHARGE NURSE OLYA LOPEZ RN. NOTIFIED RT DANNY. BP 195/129, HR 134. 02 SAT 83%. RESP 32. BREATHING TX ADMINISTERED AND ENCOURAGING PATIENT TO SLOW BREATHING DOWN. RT AT BEDSIDE. 0430 BP 207/118. PATIENT ANXIOUS. STATES "AM I GOING TO ?" EMOTIONAL SUPPORT GIVEN. 0435 BP 225/99. DR CONNER NOTIFIED BY TRINITY GONZALEZ. 0450 LAB AT BEDSIDE. RT PERFORMING EKG. 0500 RT PLACED VENTI MASK ON PATIENT. 0515 PATIENT REPORTS VENTIMASK HELPING HER BREATHING. PATIENT MORE CALM. HEART RATE 76-77, 02 SAT 89%, RESP 23, BP 155/77. PATIENT REPORTS ABDOMINAL PAIN IMPROVED.
[2019-01-29] MEDS ORDERED: NS 100ML 100 ML IV ONE (04:43)
[2019-01-29] MEDS ORDERED: LOPRESSER ONE (04:43)
[2019-01-29] MEDS ORDERED: DILTIAZEM HCL IV ONE (04:44)
[2019-01-29] MEDS: MORPHINE SULFATE IV PRN (04:50)
[2019-01-29] MEDS ORDERED: LASIX ONE (04:57)
[2019-01-29] MEDS ORDERED: NITROSTAT SL ONE (05:01)
[2019-01-29 05:06] LABS: BASOPHIL % 0.2 % (0.0-0.2); EOSINOPHIL # 0.4 10^3/uL (0.0-0.2); EOSINOPHIL % 2.6 % (0.0-5.0); HEMOGLOBIN 11.5 g/dL (12.0-15.0); LYMPHOCYTES # 3.1 10^3/uL (1.0-4.8); LYMPHOCYTES % 19.5 % (24.0-44.0); MEAN CELL HGB 29.6 pg (26-34); MEAN CELL HGB CONCENTRATION 33.7 g/dL (33-37); MEAN CORP VOLUME 87.7 fL (78-100); MEAN PLATELET VOLUME 11.7 fL (7.8-11.0); MONOCYTES # 2.3 10^3/uL (0.3-0.8); MONOCYTES % 14.6 % (5.0-12.0); NEUTROPHIL # 9.9 10^3/uL (1.8-7.7); NEUTROPHILS % 62.3 % (41.0-85.0); RED CELL DISTRIBUTION WIDTH 15.3 % (11.5-14.5); WHITE BLOOD CELL 15.8 10^3/uL (4.5-11.0)
[2019-01-29] MEDS: DUONEB 0.5 MG-3 MG/3 ML SOLN IH SCH ×6 (05:09→23:22)
[2019-01-29] MEDS ORDERED: LOPRESSER IVP STA (05:21)
[2019-01-29] MEDS ORDERED: LASIX IV STA (05:21)
[2019-01-29 05:23] LABS: CALCIUM 9.2 mg/dL (8.4-10.5); CARBON DIOXIDE 24.3 mmol/L (20.0-32)
--- NOTE | 2019-01-29 05:26 | PCM.EKG ---
[facility] Test Date: 2019-01-29 Test Time: 04:51:08 Pat Name: HERBER ZARATE Department: Room: ICU5 A Gender: F Clinical Pharmacy Technician: BRODY : [id number] Requested By: MAGUI CONNER Order Number: [id number] Reading MD: Measurements Intervals [place] Rate: 131 P: 89 SC: 142 QRS: 93 QRSD: 86 T: -86 QT: 304 QTc: 448 Interpretive Statements Sinus tachycardia with occasional premature ventricular complexes Marked ST abnormality, possible inferior subendocardial injury Abnormal ECG Compared to ECG 01/26/2019 01:13:34 No significant changes Please click the below link to view image of tracing.
[2019-01-29] MEDS ORDERED: NITROSTAT SL PRN (05:30)
--- NOTE | 2019-01-29 05:57 | PNH ---
DATE: 01/28/2019 SUBJECTIVE: The patient started having after the catheterization on 01/27/2019 evening right-sided lower abdominal pain and drop in hemoglobin from 11 to almost 7.6 and white count went up to 15 and her chemistries had shown that her BUN was 31, creatinine 1.82 and potassium was 2.8. She was tender, but the Angio-Seal site appeared to be clean and there was no obvious bruising around the Angio-Seal site. She apparently had a hematoma in the region causing blood loss. CT scan of the abdomen and pelvis came out to the report of the right lower quadrant hematoma extending into the pelvis. It does not appear to be retroperitoneal and it may have been seepage after the Angio-Seal with a blood pressure being high at the time 180/100. Urinary bladder was displaced to the left and the mass effect was noted and slight hydronephrosis was noted and she was given 2 units of blood and 2 units of fresh frozen plasma and her aspirin, Brilinta was held and she is doing much better today and she was hypotensive yesterday. PHYSICAL EXAMINATION: VITAL SIGNS: Her pulse is 93, respirations 20, 130/67 blood pressure, 94 saturation and she had some wheezing this morning and 40 mg of Lasix IV was given. The urine output is 3400 mL and a positive balance of 732. NECK: No JVD. Some scattered rhonchi noted bilaterally. HEART: Sounds normal. Chest pain is improved. ST depression is noted, probably related to hypokalemia, but she had a significantly large right coronary stent placed and one is concerned about a stent thrombosis, so early on after placement since she is not on dual antiplatelet therapy. ABDOMEN: Distended, more so on the right side. SKIN: Warm and dry and the site looks to be clean. There is no oozing. Her hemoglobin came up to only 7.8 and 2 more units of packed cells were given along with 2 units of fresh frozen plasma and potassium is 3.1. Actually, the creatinine went down from 1.8 to 1.58 and BUN is 32 and low protein albumin is noted and D-dimer is 1.03. IMPRESSION: Non-ST elevation myocardial infarction post-right coronary artery stenting, hematoma, right groin area, displacement of the bladder with early hydronephrosis, chronic kidney disease class 2, possible pneumonia, chronic systolic heart failure, 35% ejection fraction. PLAN: At this time, all medicines have been discontinued. We will start her on Coreg and we will start her on Brilinta and aspirin from this evening. Watch her hemoglobin and repeat her labs. Further management will depend on the clinical course. Elda Otero MD DR: GLYNN/sania JOB# [id number]
--- NOTE | 2019-01-29 06:25 | NUR ---
PATIENT CHANGED FROM VENTI MASK TO NASAL CANNULA AT 3L. PATIENT MAINTAINING 02 SAT OF 95%.
--- NOTE | 2019-01-29 07:30 | NUR ---
DR. CONNER AT BEDSIDE ASSESSING PATIENT AND DISCUSSING PLAN OF CARE.
--- NOTE | 2019-01-29 07:37 | PRM.PN ---
Subjective Subjective Date: Jan 29, 2019 Time: 00:00 Subjective Patient became hypoxic and tachycardic overnight. EKG showed sinus tachycardia. Patient also had vascular congestion. Patient IV lopressor, SL Nitro, IV morphine, STAT and was given dose of IV lasix. Patient symptoms have improved. She denies chest pain or any other complaints this AM. Labs, imaging reviewed. Patient History: Unknown 33 MOTHER 33 FATHER VTE VTE Risk Total Score: >5 VTE Risk Score VTE Risk: Score 0-1 = Low Risk (Aggressive mobilization; early ambulation; no VTE prophylaxis required) Score 2: Moderate Risk (Intermittent/Pneumatic Compression Device OR Lovenox/Heparin/Coumadin) Score 3-4: High Risk (Intermittent/Pneumatic Compression Device AND Lovenox/Heparin/Coumadin) Score > or =5: Highest Risk (Intermittent/Pneumatic Compression Device AND Lovenox/Heparin/Coumadin) Antico:Hep/LMWH/Coum/Xarelto: No Mechanical device ordered: Yes Reasons not ordering prophylax: At risk for falls Review of Systems Allergies: Coded Allergies: codeine (Verified Allergy, Unknown, 03/29/17) Scheduled Albuterol Sulfate (Ventolin Hfa), 18 GM IH Q6HR, (Reported) Carvedilol 3.125MG (Coreg 3.125MG), 1 TAB PO BID, (Reported) Clopidogrel Bisulfate (Plavix), 1 TAB PO DAILY, (Reported) Levetiracetam (Keppra), 500 MG PO BID Montelukast Sodium (Montelukast Sodium), 1 TAB PO HS, (Reported) Nifedipine (Nifedipine Er), 90 MG PO DAILY24, (Reported) Omeprazole (Omeprazole), 40 MG PO DAILY24, (Reported) Potassium Chloride (Potassium Chloride), 20 MEQ PO DAILY24 Sertraline Hcl (Zoloft), 1 TAB PO DAILY, (Reported) Simvastatin (Simvastatin), 1 TAB PO HS Trazodone Hcl (Trazodone Hcl), 1.5 TAB PO HS, (Reported) Umeclidinium Brm/Vilanterol Tr (Anoro Ellipta 62.5-25 Mcg INH), 1 EACH IH DAILY24, (Reported) Objective Vitals and I/O Vital Sign - Last 24 Hours 01/25/19 01/25/19 01/25/19 01/25/19 08:00 08:05 08:15 08:30 Temp 36.7 36.7 36.7 98.1 98.1 98.1 Pulse 58 57 62 67 Resp 15 15 17 16 B/P (MAP) 134/64 (87) 135/68 (90) 173/92 (119) Pulse Ox 99 99 99 99 FiO2 45 01/25/19 01/25/19 01/25/19 01/25/19 08:45 09:00 09:05 09:05 Temp 36.7 36.8 98.1 98.2 Pulse 56 56 58 55 Resp 15 15 15 15 B/P (MAP) 167/72 (103) 131/68 (89) Pulse Ox 100 99 97 99 01/25/19 01/25/19 01/25/19 01/25/19 09:15 09:30 09:45 10:00 Temp 36.8 36.8 36.8 36.8 98.2 98.2 98.2 98.2 Pulse 57 62 55 57 Resp 16 15 16 B/P (MAP) 141/70 (93) 136/59 (84) 145/64 (91) 133/67 (89) Pulse Ox 99 98 97 95 01/25/19 01/25/19 01/25/19 01/25/19 10:10 10:15 10:30 10:42 Temp 36.7 36.7 98.1 98.1 Pulse 55 56 58 Resp 15 17 16 B/P (MAP) 152/72 (98) 158/69 (98) 168/76 Pulse Ox 98 96 98 FiO2 30 01/25/19 01/25/19 01/25/19 01/25/19 10:45 11:00 11:15 11:30 Temp 36.7 36.7 36.7 36.8 98.1 98.1 98.1 98.2 Pulse 54 57 60 65 Resp 15 16 15 15 B/P (MAP) 162/64 (96) 168/76 (106) 172/74 (106) 178/79 (112) Pulse Ox 95 97 97 96 01/25/19 01/25/19 01/25/19 01/25/19 11:45 12:00 12:00 12:00 Temp 36.8 36.8 98.2 98.2 Pulse 66 56 66 Resp 16 18 B/P (MAP) 153/85 (107) 166/76 (106) Pulse Ox 96 99 96 O2 Delivery Mechanical Ventilator FiO2 30 01/25/19 01/25/19 01/25/19 01/25/19 12:15 12:30 12:40 12:40 Temp 36.9 36.9 98.4 98.4 Pulse 67 74 72 72 B/P (MAP) 175/79 (111) 174/84 (114) 180/83 Pulse Ox 95 95 94 01/25/19 01/25/19 01/25/19 01/25/19 12:40 12:40 12:45 13:00 Temp 36.9 98.4 Pulse 70 70 74 68 Resp 20 12 24 B/P (MAP) 176/84 (114) Pulse Ox 94 94 95 95 FiO2 30 28 01/25/19 01/25/19 01/25/19 01/25/19 13:00 13:15 13:16 13:20 Temp 37.0 37.1 37.1 98.6 98.8 98.8 Pulse 67 73 74 72 Resp 16 B/P (MAP) 180/83 (115) 167/71 (103) Pulse Ox 94 95 96 95 FiO2 28 01/25/19 01/25/19 01/25/19 01/25/19 13:30 13:45 13:53 14:00 Temp 37.2 37.3 37.3 37.3 99.0 99.1 99.1 99.1 Pulse 65 70 68 64 B/P (MAP) 148/60 (89) 139/101 (114) 147/64 (91) 149/69 (95) Pulse Ox 94 95 95 94 01/25/19 01/25/19 01/25/19 01/25/19 14:15 14:30 14:45 15:00 Temp 37.4 37.4 37.3 37.3 99.3 99.3 99.1 99.1 Pulse 66 77 76 75 Resp 20 16 19 B/P (MAP) 147/67 (93) 125/60 (81) 119/60 (79) 124/64 (84) Pulse Ox 95 94 95 94 01/25/19 01/25/19 01/25/19 01/25/19 15:15 15:30 15:45 16:00 Temp 37.3 37.3 37.3 37.3 99.1 99.1 99.1 99.1 Pulse 83 79 77 78 Resp 25 18 B/P (MAP) 126/61 (82) 118/56 (76) 127/63 (84) 99/53 (68) Pulse Ox 94 93 95 95 01/25/19 01/25/19 01/25/19 01/25/19 16:00 16:15 16:30 16:45 Temp 37.3 37.3 37.3 99.1 99.1 99.1 Pulse 81 76 77 Resp 17 13 B/P (MAP) 132/63 (86) 147/59 (88) 143/86 (105) Pulse Ox 95 95 95 O2 Delivery Nasal Cannula O2 Flow Rate 2.00 01/25/19 01/25/19 01/25/19 01/25/19 17:00 17:06 17:15 17:30 Temp 37.3 37.3 37.3 37.3 99.1 99.1 99.1 99.1 Pulse 75 76 79 80 Resp 10 13 19 17 B/P (MAP) 146/115 (125) 142/72 (95) 146/75 (98) 128/66 (86) Pulse Ox 97 93 95 96 01/25/19 01/25/19 01/25/19 01/25/19 17:45 18:00 18:10 18:10 Temp 37.4 37.4 99.3 99.3 Pulse 80 80 75 80 Resp 16 16 B/P (MAP) 146/63 (90) 148/62 (90) Pulse Ox 95 96 97 98 01/25/19 01/25/19 01/25/19 01/25/19 18:15 18:30 19:00 19:00 Temp 37.3 37.3 37.3 99.1 99.1 99.1 Pulse 80 79 77 Resp 29 B/P (MAP) 151/65 (93) 165/73 (103) 154/112 (126) Pulse Ox 96 96 96 O2 Delivery Nasal Cannula O2 Flow Rate 2.00 01/25/19 01/25/19 01/25/19 01/25/19 19:15 19:30 19:45 20:00 Temp 37.2 37.2 37.3 99.0 99.0 99.1 Pulse 82 76 77 79 Resp 22 11 11 18 B/P (MAP) 146/76 (99) 147/56 (86) 159/78 (105) Pulse Ox 96 96 96 98 O2 Delivery Nasal Cannula O2 Flow Rate 2.00 FiO2 28 01/25/19 01/25/19 01/25/19 01/25/19 20:00 20:00 20:15 20:15 Temp 37.3 37.2 99.1 99.0 Pulse 79 80 81 80 Resp 18 18 18 12 B/P (MAP) 161/78 (105) Pulse Ox 98 96 99 98 01/25/19 01/25/19 01/25/19 01/25/19 20:30 20:45 21:00 21:05 Pulse 83 82 89 98 Resp 11 23 15 B/P (MAP) 165/77 (106) 142/65 (90) 153/62 Pulse Ox 99 98 98 01/25/19 01/25/19 01/25/19 01/25/19 21:15 21:30 21:45 22:00 Pulse 91 95 97 100 Resp 18 18 40 15 B/P (MAP) 153/62 (92) 173/97 (122) Pulse Ox 98 99 97 95 01/25/19 01/25/19 01/25/19 01/25/19 22:15 22:30 22:45 23:00 Pulse 96 95 91 96 Resp 14 20 15 19 B/P (MAP) 162/83 (109) 150/79 (102) Pulse Ox 98 97 99 97 01/25/19 01/25/19 01/25/19 01/25/19 23:00 23:13 23:15 23:30 Pulse 96 93 101 Resp 21 20 B/P (MAP) 160/74 160/74 (102) Pulse Ox 98 97 O2 Delivery Nasal Cannula O2 Flow Rate 2.00 01/25/19 01/26/19 01/26/19 01/26/19 23:45 00:00 00:15 00:45 Pulse 92 95 101 110 Resp 14 20 12 12 B/P (MAP) 138/61 (86) Pulse Ox 96 97 96 93 01/26/19 01/26/19 01/26/19 01/26/19 01:00 01:10 01:15 01:21 Pulse 115 107 106 102 Resp 16 28 24 21 B/P (MAP) 171/96 (121) 159/86 (110) Pulse Ox 93 88 91 89 01/26/19 01/26/19 01/26/19 01/26/19 01:30 01:30 01:45 02:00 Pulse 114 118 116 122 Resp 18 30 19 B/P (MAP) 176/94 (121) 171/96 Pulse Ox 93 88 92 01/26/19 01/26/19 01/26/19 01/26/19 02:00 02:15 02:30 02:45 Pulse 117 123 118 109 Resp 14 16 17 23 B/P (MAP) 145/52 (83) 119/62 (81) Pulse Ox 92 91 89 90 01/26/19 01/26/19 01/26/19 01/26/19 03:00 03:15 03:30 03:45 Pulse 116 117 111 112 Resp 24 20 17 11 B/P (MAP) 137/70 (92) 146/76 (99) 124/59 (80) 126/59 (81) Pulse Ox 88 86 86 86 01/26/19 01/26/19 01/26/19 01/26/19 04:00 04:00 04:15 04:30 Temp 99.4 99.4 Pulse 107 102 102 Resp 17 16 15 B/P (MAP) 123/50 (74) 116/52 (73) 120/59 (79) Pulse Ox 86 89 88 O2 Delivery Nasal Cannula O2 Flow Rate 2.00 01/26/19 01/26/19 01/26/19 01/26/19 04:45 04:45 05:00 05:00 Pulse 106 103 105 104 Resp 15 18 16 16 B/P (MAP) 125/59 (81) 119/49 (72) Pulse Ox 89 88 89 93 01/26/19 01/26/19 01/26/19 01/26/19 05:15 05:30 05:45 06:00 Pulse 105 102 89 89 Resp 16 19 17 14 B/P (MAP) 119/56 (77) 127/64 (85) 127/56 (79) 126/59 (81) Pulse Ox 92 89 91 92 Intake and Output 01/25/19 01/25/19 01/26/19 14:59 22:59 06:59 Intake Total 2244 ml Output Total 800 ml 400 ml Balance -800 ml 1844 ml General: Alert, Oriented X3, Cooperative, No acute distress HEENT: Atraumatic, PERRLA, EOMI, Mucous membr. moist/pink Neck: Supple, No JVD Lungs: Normal air movement, Other (bilateral bibasilar crackles) Heart: Normal S1, Normal S2 Abdomen: Normal bowel sounds, Soft, Other (tenderness to palpation diffusely) Extremities: No clubbing, No cyanosis, Normal pulses, No tenderness/swelling Skin: No rashes, No breakdown, No significant lesion Neuro: Normal speech, Strength at 5/5 X4 ext, Normal tone, Sensation intact, Cranial nerves 3-12 NL Psych/Mental Status: Mental status NL, Mood NL All Results(Lab/Rad) Laboratory Tests Test 01/25/19 08:00 01/25/19 13:10 01/25/19 13:35 01/25/19 18:50 Blood Gas Sample Site LEFT BRACHIAL ARTRY Blood Gas pH 7.331 Blood Gas PCO2 35.6 mmHg Blood Gas PO2 107.4 mmHg Blood Gas HCO3 18.4 mmol/L Blood Gas Base Excess -6.8 mmol/L Jose Test N/A Arterial Blood Oxygen Saturation 96.8 % Deoxyhemoglobin 3.2 % Carboxyhemoglobin 0.6 % Methemoglobin 0.3 % Total Hemoglobin 11.3 % Total Oxygen Concentration 15.4 % Lactic Acid (Blood Gas) 1.2 MMOL/L Blood Gas Temperature 37 Blood Gas Vent Mode SIMV Blood Gas Vent Rate 15 FiO2 45 % Blood Gas Tidal Volume 450 ML Blood Gas PEEP 5 CMH2O Blood Gas Pressure Support 10 CMH2O Bicarbonate 19.5 mmol/L White Blood Count 10.6 10^3/uL Red Blood Count 3.98 10^6/uL Hemoglobin 11.8 g/dL Hematocrit 35.2 % Mean Corpuscular Volume 88.4 fL Mean Corpuscular Hemoglobin 29.6 pg Mean Corpuscular Hemoglobin Concent 33.5 g/dL Red Cell Distribution Width 14.2 % Platelet Count 242 10^3/uL Mean Platelet Volume 11.1 fL Neutrophils (%) (Auto) 90.9 % Lymphocytes (%) (Auto) 6.2 % Monocytes (%) (Auto) 1.7 % Neutrophils # (Auto) 9.7 10^3/uL Lymphocytes # (Auto) 0.7 10^3/uL Monocytes # (Auto) 0.2 10^3/uL Absolute Immature Granulocyte (auto 0.03 10^3 u/L Eosinophils % 0.6 % Basophils % 0.3 % Basophils # 0.0 10^3/uL Eosinophil Count 0.1 10^3/uL Troponin I 1.27 ng/mL 0.90 ng/mL Pro-B-Type Natriuretic Peptide 88046 pg/mL Percent Immature Gran (Cell Imm) 0.30 % Differential Total Cells Counted 100 #CELLS Segmented Neutrophils 92 % Band Neutrophils 1 % Lymphocytes 7 % Platelet Morphology NORMAL Poikilocytosis 1+ Anisocytosis 1+ Test 01/26/19 01:31 01/26/19 04:50 01/26/19 04:58 01/26/19 05:32 Vancomycin Level Trough 22.8 ug/mL Blood Gas Sample Site RT BRACIAL ARTERY Blood Gas pH 7.386 Blood Gas PCO2 26.3 mmHg Blood Gas PO2 73.0 mmHg Blood Gas HCO3 15.4 mmol/L Blood Gas Base Excess -8.2 mmol/L Jose Test N/A Arterial Blood Oxygen Saturation 93.5 % Deoxyhemoglobin 6.4 % Carboxyhemoglobin 1.1 % Methemoglobin 0.5 % Total Hemoglobin 11.0 % Total Oxygen Concentration 14.3 % Lactic Acid (Blood Gas) 1.9 MMOL/L Blood Gas Temperature 37.0 Oxygen Delivery Method (LAB) NASAL CANNULA FiO2 0.32 % Bicarbonate 16.2 mmol/L White Blood Count 10.8 10^3/uL Red Blood Count 3.42 10^6/uL Hemoglobin 10.3 g/dL Hematocrit 30.7 % Mean Corpuscular Volume 89.8 fL Mean Corpuscular Hemoglobin 30.1 pg Mean Corpuscular Hemoglobin Concent 33.6 g/dL Red Cell Distribution Width 14.2 % Platelet Count 225 10^3/uL Mean Platelet Volume 11.1 fL Neutrophils (%) (Auto) 89.8 % Lymphocytes (%) (Auto) 6.2 % Monocytes (%) (Auto) 3.8 % Neutrophils # (Auto) 9.7 10^3/uL Lymphocytes # (Auto) 0.7 10^3/uL Monocytes # (Auto) 0.4 10^3/uL Absolute Immature Granulocyte (auto 0.02 10^3 u/L Eosinophils % 0.0 % Basophils % 0.0 % Basophils # 0.0 10^3/uL Eosinophil Count 0.0 10^3/uL Sodium Level 139 mmol/L Potassium Level 3.4 mmol/L Chloride Level 108.0 mmol/L Carbon Dioxide Level 18.9 mmol/L Anion Gap 15.5 Blood Urea Nitrogen 21 mg/dL Creatinine 1.43 mg/dL Estimated GFR () 44.3 BUN/Creatinine Ratio 14.0 Glucose Level 143 mg/dL Hemoglobin A1c 5.8 % Calcium Level 9.2 mg/dL Total Bilirubin 0.3 mg/dL Aspartate Amino Transf (AST/SGOT) 19 U/L Alanine Aminotransferase (ALT/SGPT) 11 U/L Alkaline Phosphatase 110 U/L Total Protein 6.2 g/dL Albumin 2.7 g/dL Globulin 3.5 Triglycerides Level 64 mg/dL Cholesterol Level 223 mg/dL LDL Cholesterol, Calculated 163.2 VLDL Cholesterol 12.8 HDL Cholesterol 47 mg/dL Cholesterol Ratio (LDL/HDL) [id number] Percent Immature Gran (Cell Imm) 0.20 % Differential Total Cells Counted 100 #CELLS Segmented Neutrophils 84 % Lymphocytes 14 % Monocytes 2 % Current Medications Medications (Trade) Dose Ordered Sig/Jacques Route PRN Reason Start Time Stop Time Status Last Admin Dose Admin Propofol 100 ml @ ud STK-MED ONCE IV 01/25/19 01:10 01/25/19 01:12 DC Propofol (Diprivan) 200 mg STK-MED ONCE IV 01/25/19 01:10 01/25/19 01:12 DC Sodium Chloride 1,000 ml @ 0 mls/hr Q0M STAT IV 01/25/19 01:31 01/25/19 01:34 DC 01/25/19 01:48 Albuterol/ Ipratropium (Duoneb 0.5 Mg-3 Mg/3 ml Soln) 3 ml STK-MED ONCE IH 01/25/19 01:35 01/25/19 01:36 DC Albuterol Sulfate (Ventolin) 2.5 mg STK-MED ONCE IH 01/25/19 01:35 01/25/19 01:36 DC Albuterol/ Ipratropium (Duoneb 0.5 Mg-3 Mg/3 ml Soln) 3 ml STAT STAT IH 01/25/19 01:58 01/25/19 02:00 DC 01/25/19 02:07 Albuterol Sulfate (Ventolin) 2.5 mg STAT STAT IH 01/25/19 01:58 01/25/19 02:00 DC 01/25/19 02:07 Vancomycin HCl 900 mg/Sodium Chloride 100 ml @ 100 mls/hr Q8H IV 01/25/19 02:30 01/25/19 08:38 DC 01/25/19 03:09 Piperacillin Sod/ Tazobactam Sod 3.375 gm/Sodium Chloride 100 ml @ 100 mls/hr Q6H IV 01/25/19 02:30 02/24/19 02:29 01/26/19 02:30 Albuterol/ Ipratropium (Duoneb 0.5 Mg-3 Mg/3 ml Soln) 3 ml RTQ4 IH 01/25/19 05:00 02/24/19 04:59 01/26/19 05:37 Enoxaparin Sodium (Lovenox) 40 mg DAILY SQ 01/25/19 09:00 02/24/19 08:59 01/25/19 09:00 Pantoprazole Sodium (Protonix Iv) 40 mg DAILY IV 01/25/19 09:00 02/24/19 08:59 01/25/19 09:00 Propofol (Diprivan) 1,000 mg PRN PRN IV SEDATION 01/25/19 03:00 02/24/19 02:59 01/25/19 07:07 Sodium Chloride 1,000 ml @ 125 mls/hr Q8H IV 01/25/19 03:30 02/24/19 03:29 01/26/19 00:18 Sodium Chloride 100 ml @ ud STK-MED ONCE IV 01/25/19 03:11 01/25/19 03:12 DC Sodium Chloride 2,000 ml @ ud STK-MED ONCE .ROUTE 01/25/19 03:11 01/25/19 03:12 DC Sodium Chloride 250 ml @ ud STK-MED ONCE IV 01/25/19 03:11 01/25/19 03:12 DC Vancomycin HCl 1 ml @ ud STK-MED ONCE .ROUTE 01/25/19 03:11 01/25/19 03:13 DC Piperacillin Sod/ Tazobactam Sod (Zosyn 3.375 Gram Vial) 3.375 gm STK-MED ONCE IV 01/25/19 03:12 01/25/19 03:13 DC Sterile Water (Water) 1,000 ml STK-MED ONCE .ROUTE 01/25/19 06:54 01/25/19 06:55 DC Sodium Chloride 100 ml @ ud STK-MED ONCE IV 01/25/19 07:31 01/25/19 07:32 DC Piperacillin Sod/ Tazobactam Sod (Zosyn 3.375 Gram Vial) 3.375 gm STK-MED ONCE IV 01/25/19 07:31 01/25/19 07:32 DC Pantoprazole Sodium (Protonix Iv) 40 mg STK-MED ONCE IV 01/25/19 07:35 01/25/19 07:36 DC Enoxaparin Sodium (Lovenox) 40 mg STK-MED ONCE SQ 01/25/19 07:35 01/25/19 07:37 DC Vancomycin HCl 0.9 gm/Sodium Chloride 250 ml @ 175 mls/hr Q8H IV 01/25/19 10:00 01/26/19 07:49 DC 01/25/19 18:00 Sodium Chloride 500 ml @ ud STK-MED ONCE IV 01/25/19 09:05 01/25/19 09:06 DC Sodium Chloride 500 ml @ 500 mls/hr Q1H ONCE IV 01/25/19 09:30 01/25/19 10:29 DC 01/25/19 09:09 Methylprednisolone Sodium Succinate (Solu-Medrol) 60 mg Q6 IV 01/25/19 09:30 02/24/19 09:29 01/26/19 05:59 Insulin Human Regular (Humulin R) Give 30 minutes before meal ACHS SQ 01/25/19 11:30 01/25/19 20:45 DC Dextrose (Dextrose 50%-Water Syringe) 25 ml STAT PRN IV [id number] 01/25/19 10:00 02/24/19 09:59 Insulin Glargine (Lantus) 20 unit HS SQ 01/25/19 10:00 02/24/19 09:59 Future Hold 01/25/19 09:54 Furosemide (Lasix) 20 mg STK-MED ONCE .ROUTE 01/25/19 10:30 01/25/19 10:31 DC Furosemide (Lasix) 20 mg OT ONCE IV 01/25/19 11:00 01/25/19 11:01 DC 01/25/19 10:42 Carvedilol (Coreg) 3.125 mg BID PO 01/25/19 21:00 01/26/19 07:49 DC 01/25/19 21:05 Clopidogrel Bisulfate (Plavix) 75 mg DAILY PO 01/26/19 09:00 02/25/19 08:59 Levetiracetam (Keppra) 500 mg BID PO 01/25/19 12:31 02/24/19 12:30 01/25/19 21:05 Nifedipine (Procardia) 30 mg BID PO 01/25/19 12:00 02/24/19 11:59 01/25/19 21:05 Pantoprazole Sodium (Protonix) 40 mg DAILY PO 01/25/19 12:28 01/25/19 12:55 DC Potassium Chloride (Klor-Con 10) 20 meq DAILY24 PO 01/25/19 12:00 02/24/19 11:59 01/25/19 12:00 Sertraline HCl (Zoloft) 100 mg DAILY PO 01/26/19 09:00 02/25/19 08:59 Simvastatin (Zocor) 40 mg HS PO 01/25/19 21:00 02/24/19 20:59 01/25/19 21:05 Hydralazine HCl (Apresoline) 10 mg Q4HR PRN IV HYPERTENSION 01/25/19 12:30 02/24/19 12:29 01/25/19 23:13 Hydralazine HCl (Apresoline) 10 mg STK-MED ONCE .ROUTE 01/25/19 12:29 01/25/19 12:31 DC Hydralazine HCl (Apresoline) 20 mg STK-MED ONCE .ROUTE 01/25/19 12:31 01/25/19 12:32 DC Aspirin (Aspirin) 81 mg DAILY PO 01/25/19 13:00 02/24/19 12:59 01/25/19 13:00 Insulin Human Regular (Humulin R) Give 30 minutes before meal ACHS SQ 01/25/19 21:00 02/24/19 20:59 01/25/19 21:00 Ibuprofen (Motrin) 800 mg Q6H PRN PO PAIN 01/25/19 23:30 02/24/19 23:29 01/26/19 00:10 Acetaminophen (Tylenol) 1,000 mg Q6HR PRN PO PAIN 01/26/19 00:30 02/25/19 00:29 01/26/19 00:33 Lorazepam (Ativan) 2 mg STK-MED ONCE .ROUTE 01/26/19 01:43 01/26/19 01:45 DC Lorazepam (Ativan) 1 mg STAT STAT IV 01/26/19 01:45 01/26/19 01:46 DC 01/26/19 01:45 Metoprolol Tartrate (Lopresser) 5 mg STK-MED ONCE .ROUTE 01/26/19 01:58 01/26/19 02:00 DC Metoprolol Tartrate (Lopresser) 5 mg STAT STAT IVP 01/26/19 02:00 01/26/19 02:13 DC 01/26/19 02:00 Morphine Sulfate (Morphine Sulfate) 4 mg STK-MED ONCE .ROUTE 01/26/19 02:48 01/26/19 02:49 DC Morphine Sulfate (Duramorph) 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 Q4H PRN IV PAIN 01/26/19 03:00 02/25/19 02:59 UNV 01/26/19 02:59 Azithromycin 500 mg/Sodium Chloride 250 ml @ 175 mls/hr Q24HRS IV 01/26/19 08:00 02/25/19 07:59 UNV Course Sepsis Screening Results: Posi: POSITIVE Sepsis Qualifier/Stage: SEPSIS RISK Duration or Total Time Spent w: 90 Vitals & review Data Vital Sign - Last 24 Hours 01/25/19 01/25/19 01/25/19 01/25/19 08:00 08:05 08:15 08:30 Temp 36.7 36.7 36.7 98.1 98.1 98.1 Pulse 58 57 62 67 Resp 15 15 17 16 B/P (MAP) 134/64 (87) 135/68 (90) 173/92 (119) Pulse Ox 99 99 99 99 FiO2 45 01/25/19 01/25/19 01/25/19 01/25/19 08:45 09:00 09:05 09:05 Temp 36.7 36.8 98.1 98.2 Pulse 56 56 58 55 Resp 15 15 15 15 B/P (MAP) 167/72 (103) 131/68 (89) Pulse Ox 100 99 97 99 01/25/19 01/25/19 01/25/19 3/3/19 09:15 09:30 09:45 10:00 Temp 36.8 36.8 36.8 36.8 98.2 98.2 98.2 98.2 Pulse 57 62 55 57 Resp 16 15 16 B/P (MAP) 141/70 (93) 136/59 (84) 145/64 (91) 133/67 (89) Pulse Ox 99 98 97 95 01/25/19 01/25/19 01/25/19 01/25/19 10:10 10:15 10:30 10:42 Temp 36.7 36.7 98.1 98.1 Pulse 55 56 58 Resp 15 17 16 B/P (MAP) 152/72 (98) 158/69 (98) 168/76 Pulse Ox 98 96 98 FiO2 30 01/25/19 01/25/19 01/25/19 01/25/19 10:45 11:00 11:15 11:30 Temp 36.7 36.7 36.7 36.8 98.1 98.1 98.1 98.2 Pulse 54 57 60 65 Resp 15 16 15 15 B/P (MAP) 162/64 (96) 168/76 (106) 172/74 (106) 178/79 (112) Pulse Ox 95 97 97 96 01/25/19 01/25/19 01/25/19 01/25/19 11:45 12:00 12:00 12:00 Temp 36.8 36.8 98.2 98.2 Pulse 66 56 66 Resp 16 18 B/P (MAP) 153/85 (107) 166/76 (106) Pulse Ox 96 99 96 O2 Delivery Mechanical Ventilator FiO2 30 01/25/19 01/25/19 01/25/19 01/25/19 12:15 12:30 12:40 12:40 Temp 36.9 36.9 98.4 98.4 Pulse 67 74 72 72 B/P (MAP) 175/79 (111) 174/84 (114) 180/83 Pulse Ox 95 95 94 01/25/19 01/25/19 01/25/19 01/25/19 12:40 12:40 12:45 13:00 Temp 36.9 98.4 Pulse 70 70 74 68 Resp 20 12 24 B/P (MAP) 176/84 (114) Pulse Ox 94 94 95 95 FiO2 30 28 01/25/19 01/25/19 01/25/19 01/25/19 13:00 13:15 13:16 13:20 Temp 37.0 37.1 37.1 98.6 98.8 98.8 Pulse 67 73 74 72 Resp 16 B/P (MAP) 180/83 (115) 167/71 (103) Pulse Ox 94 95 96 95 FiO2 28 01/25/19 01/25/19 01/25/19 01/25/19 13:30 13:45 13:53 14:00 Temp 37.2 37.3 37.3 37.3 99.0 99.1 99.1 99.1 Pulse 65 70 68 64 B/P (MAP) 148/60 (89) 139/101 (114) 147/64 (91) 149/69 (95) Pulse Ox 94 95 95 94 01/25/19 01/25/19 01/25/19 01/25/19 14:15 14:30 14:45 15:00 Temp 37.4 37.4 37.3 37.3 99.3 99.3 99.1 99.1 Pulse 66 77 76 75 Resp 20 16 19 B/P (MAP) 147/67 (93) 125/60 (81) 119/60 (79) 124/64 (84) Pulse Ox 95 94 95 94 01/25/19 01/25/19 01/25/19 01/25/19 15:15 15:30 15:45 16:00 Temp 37.3 37.3 37.3 37.3 99.1 99.1 99.1 99.1 Pulse 83 79 77 78 Resp 19 19 25 18 B/P (MAP) 126/61 (82) 118/56 (76) 127/63 (84) 99/53 (68) Pulse Ox 94 93 95 95 01/25/19 01/25/19 01/25/19 01/25/19 16:00 16:15 16:30 16:45 Temp 37.3 37.3 37.3 99.1 99.1 99.1 Pulse 81 76 77 Resp 17 17 13 B/P (MAP) 132/63 (86) 147/59 (88) 143/86 (105) Pulse Ox 95 95 95 O2 Delivery Nasal Cannula O2 Flow Rate 2.00 01/25/19 01/25/19 01/25/19 01/25/19 17:00 17:06 17:15 17:30 Temp 37.3 37.3 37.3 37.3 99.1 99.1 99.1 99.1 Pulse 75 76 79 80 Resp 11 19 17 B/P (MAP) 146/115 (125) 142/72 (95) 146/75 (98) 128/66 (86) Pulse Ox 97 93 95 96 01/25/19 01/25/19 01/25/19 01/25/19 17:45 18:00 18:10 18:10 Temp 37.4 37.4 99.3 99.3 Pulse 80 80 75 80 Resp 16 16 B/P (MAP) 146/63 (90) 148/62 (90) Pulse Ox 95 96 97 98 01/25/19 01/25/19 01/25/19 01/25/19 18:15 18:30 19:00 19:00 Temp 37.3 37.3 37.3 99.1 99.1 99.1 Pulse 80 79 77 Resp 29 B/P (MAP) 151/65 (93) 165/73 (103) 154/112 (126) Pulse Ox 96 96 96 O2 Delivery Nasal Cannula O2 Flow Rate 2.00 01/25/19 01/25/19 01/25/19 01/25/19 19:15 19:30 19:45 20:00 Temp 37.2 37.2 37.3 99.0 99.0 99.1 Pulse 82 76 77 79 Resp 22 10 05 18 B/P (MAP) 146/76 (99) 147/56 (86) 159/78 (105) Pulse Ox 96 96 96 98 O2 Delivery Nasal Cannula O2 Flow Rate 2.00 FiO2 28 01/25/19 01/25/19 01/25/19 01/25/19 20:00 20:00 20:15 20:15 Temp 37.3 37.2 99.1 99.0 Pulse 79 80 81 80 Resp 18 18 18 12 B/P (MAP) 161/78 (105) Pulse Ox 98 96 99 98 01/25/19 01/25/19 01/25/19 01/25/19 20:30 20:45 21:00 21:05 Pulse 83 82 89 98 Resp 11 23 15 B/P (MAP) 165/77 (106) 142/65 (90) 153/62 Pulse Ox 99 98 98 01/25/19 01/25/19 01/25/19 01/25/19 21:15 21:30 21:45 22:00 Pulse 91 95 97 100 Resp 18 18 40 15 B/P (MAP) 153/62 (92) 173/97 (122) Pulse Ox 98 99 97 95 01/25/19 01/25/19 01/25/19 01/25/19 22:15 22:30 22:45 23:00 Pulse 96 95 91 96 Resp 14 20 15 19 B/P (MAP) 162/83 (109) 150/79 (102) Pulse Ox 98 97 99 97 01/25/19 01/25/19 01/25/19 01/25/19 23:00 23:13 23:15 23:30 Pulse 96 93 101 Resp 21 20 B/P (MAP) 160/74 160/74 (102) Pulse Ox 98 97 O2 Delivery Nasal Cannula O2 Flow Rate 2.00 01/25/19 01/26/19 01/26/19 01/26/19 23:45 00:00 00:15 00:45 Pulse 92 95 101 110 Resp 14 20 12 12 B/P (MAP) 138/61 (86) Pulse Ox 96 97 96 93 01/26/19 01/26/19 01/26/19 01/26/19 01:00 01:10 01:15 01:21 Pulse 115 107 106 102 Resp 16 28 24 21 B/P (MAP) 171/96 (121) 159/86 (110) Pulse Ox 93 88 91 89 01/26/19 01/26/19 01/26/19 01/26/19 01:30 01:30 01:45 02:00 Pulse 114 118 116 122 Resp 18 30 19 B/P (MAP) 176/94 (121) 171/96 Pulse Ox 93 88 92 01/26/19 01/26/19 01/26/19 01/26/19 02:00 02:15 02:30 02:45 Pulse 117 123 118 109 Resp 14 16 17 23 B/P (MAP) 145/52 (83) 119/62 (81) Pulse Ox 92 91 89 90 01/26/19 01/26/19 01/26/19 01/26/19 03:00 03:15 03:30 03:45 Pulse 116 117 111 112 Resp 24 20 17 11 B/P (MAP) 137/70 (92) 146/76 (99) 124/59 (80) 126/59 (81) Pulse Ox 88 86 86 86 01/26/19 01/26/19 01/26/19 01/26/19 04:00 04:00 04:15 04:30 Temp 99.4 99.4 Pulse 107 102 102 Resp 17 16 15 B/P (MAP) 123/50 (74) 116/52 (73) 120/59 (79) Pulse Ox 86 89 88 O2 Delivery Nasal Cannula O2 Flow Rate 2.00 01/26/19 01/26/19 01/26/19 01/26/19 04:45 04:45 05:00 05:00 Pulse 106 103 105 104 Resp 15 18 16 16 B/P (MAP) 125/59 (81) 119/49 (72) Pulse Ox 89 88 89 93 01/26/19 01/26/19 01/26/19 01/26/19 05:15 05:30 05:45 06:00 Pulse 105 102 89 89 Resp 16 19 17 14 B/P (MAP) 119/56 (77) 127/64 (85) 127/56 (79) 126/59 (81) Pulse Ox 92 89 91 92 Intake and Output 01/25/19 01/25/19 01/26/19 14:59 22:59 06:59 Intake Total 2244 ml Output Total 800 ml 400 ml Balance -800 ml 1844 ml Laboratory Tests Test 01/25/19 01:10 01/25/19 01:15 01/25/19 01:31 01/25/19 02:12 Blood Gas Sample Site LEFT RADIAL ARTERY Blood Gas pH 7.188 Blood Gas PCO2 46.6 mmHg Blood Gas PO2 179.8 mmHg Blood Gas HCO3 17.3 mmol/L Blood Gas Base Excess -10.7 mmol/L Jose Test POSITIVE Arterial Blood Oxygen Saturation 98.5 % Deoxyhemoglobin 1.4 % Carboxyhemoglobin 5.0 % Methemoglobin 0.4 % Total Hemoglobin 13.3 % Total Oxygen Concentration 17.8 % Lactic Acid (Blood Gas) 3.7 MMOL/L Blood Gas Temperature 37.0 Oxygen Delivery Method (LAB) VENT Blood Gas Vent Mode SIMV Blood Gas Vent Rate 15 FiO2 0.75 % Blood Gas Tidal Volume 450 ML Blood Gas PEEP 5.0 CMH2O Blood Gas Pressure Support 10 CMH2O Bicarbonate 18.7 mmol/L Sodium Level 142 mmol/L Potassium Level 3.6 mmol/L Chloride Level 105.0 mmol/L Carbon Dioxide Level 21.1 mmol/L Anion Gap 19.5 Blood Urea Nitrogen 19 mg/dL Creatinine 1.41 mg/dL Estimated GFR () 45.0 BUN/Creatinine Ratio 13.0 Glucose Level 245 mg/dL Calcium Level 9.4 mg/dL Total Bilirubin 0.2 mg/dL Aspartate Amino Transf (AST/SGOT) 15 U/L Alanine Aminotransferase (ALT/SGPT) 10 U/L Alkaline Phosphatase 158 U/L Total Creatine Kinase 59 U/L Troponin I 0.76 ng/mL Total Protein 7.3 g/dL Albumin 3.1 g/dL Globulin 4.2 White Blood Count 9.0 10^3/uL Red Blood Count 4.17 10^6/uL Hemoglobin 12.4 g/dL Hematocrit 37.6 % Mean Corpuscular Volume 90.2 fL Mean Corpuscular Hemoglobin 29.7 pg Mean Corpuscular Hemoglobin Concent 33.0 g/dL Red Cell Distribution Width 14.0 % Platelet Count 303 10^3/uL Mean Platelet Volume 10.9 fL Neutrophils (%) (Auto) 46.5 % Lymphocytes (%) (Auto) 38.2 % Monocytes (%) (Auto) 10.0 % Neutrophils # (Auto) 4.2 10^3/uL Lymphocytes # (Auto) 3.4 10^3/uL Monocytes # (Auto) 0.9 10^3/uL Absolute Immature Granulocyte (auto 0.06 10^3 u/L Eosinophils % 4.0 % Basophils % 0.6 % Basophils # 0.1 10^3/uL Eosinophil Count 0.4 10^3/uL Percent Immature Gran (Cell Imm) 0.70 % Urine Collection Type CCMS Urine Color YELLOW Urine Appearance CLOUDY Urine Bilirubin NEGATIVE MG/DL Urine Ketones NEGATIVE Urine Specific [place] 1.025 Urine pH 5 Urine Protein 500 mg/dL Urine Urobilinogen NORMAL Urine Nitrate NEGATIVE Urine Leukocyte Esterase NEGATIVE Urine Blood 10 TR Urine RBC NONE SEEN RBC/HPF Urine WBC 5-10 WBC/HPF Urine Squamous Epithelial Cells MODERATE #/HPF Urine Amorphous Sediment LARGE Urine Bacteria FEW Urine Other MUCUS 1+ #/HPF Urine Glucose NORMAL Test 01/25/19 04:30 01/25/19 08:00 01/25/19 13:10 01/25/19 13:35 Blood Gas Sample Site LEFT BRACHIAL ARTRY LEFT BRACHIAL ARTRY Blood Gas pH 7.349 7.331 Blood Gas PCO2 32.0 mmHg 35.6 mmHg Blood Gas PO2 103.3 mmHg 107.4 mmHg Blood Gas HCO3 17.2 mmol/L 18.4 mmol/L Blood Gas Base Excess -7.4 mmol/L -6.8 mmol/L Jose Test N/A N/A Arterial Blood Oxygen Saturation 96.9 % 96.8 % Deoxyhemoglobin 3.0 % 3.2 % Carboxyhemoglobin 1.6 % 0.6 % Methemoglobin 0.3 % 0.3 % Total Hemoglobin 11.7 % 11.3 % Total Oxygen Concentration 15.8 % 15.4 % Lactic Acid (Blood Gas) 0.8 MMOL/L 1.2 MMOL/L Blood Gas Temperature 37.0 37 Oxygen Delivery Method (LAB) VENT Blood Gas Vent Mode SIMV SIMV Blood Gas Vent Rate 15 15 FiO2 0.45 % 45 % Blood Gas Tidal Volume 450 ML 450 ML Blood Gas PEEP 5.0 CMH2O 5 CMH2O Blood Gas Pressure Support 10 CMH2O 10 CMH2O Bicarbonate 18.2 mmol/L 19.5 mmol/L White Blood Count 10.6 10^3/uL Red Blood Count 3.98 10^6/uL Hemoglobin 11.8 g/dL Hematocrit 35.2 % Mean Corpuscular Volume 88.4 fL Mean Corpuscular Hemoglobin 29.6 pg Mean Corpuscular Hemoglobin Concent 33.5 g/dL Red Cell Distribution Width 14.2 % Platelet Count 242 10^3/uL Mean Platelet Volume 11.1 fL Neutrophils (%) (Auto) 90.9 % Lymphocytes (%) (Auto) 6.2 % Monocytes (%) (Auto) 1.7 % Neutrophils # (Auto) 9.7 10^3/uL Lymphocytes # (Auto) 0.7 10^3/uL Monocytes # (Auto) 0.2 10^3/uL Absolute Immature Granulocyte (auto 0.03 10^3 u/L Eosinophils % 0.6 % Basophils % 0.3 % Basophils # 0.0 10^3/uL Eosinophil Count 0.1 10^3/uL Troponin I 1.27 ng/mL Pro-B-Type Natriuretic Peptide 68606 pg/mL Percent Immature Gran (Cell Imm) 0.30 % Differential Total Cells Counted 100 #CELLS Segmented Neutrophils 92 % Band Neutrophils 1 % Lymphocytes 7 % Platelet Morphology NORMAL Poikilocytosis 1+ Anisocytosis 1+ Test 01/25/19 18:50 01/26/19 01:31 01/26/19 04:50 01/26/19 04:58 Troponin I 0.90 ng/mL Vancomycin Level Trough 22.8 ug/mL Blood Gas Sample Site RT BRACIAL ARTERY Blood Gas pH 7.386 Blood Gas PCO2 26.3 mmHg Blood Gas PO2 73.0 mmHg Blood Gas HCO3 15.4 mmol/L Blood Gas Base Excess -8.2 mmol/L Jose Test N/A Arterial Blood Oxygen Saturation 93.5 % Deoxyhemoglobin 6.4 % Carboxyhemoglobin 1.1 % Methemoglobin 0.5 % Total Hemoglobin 11.0 % Total Oxygen Concentration 14.3 % Lactic Acid (Blood Gas) 1.9 MMOL/L Blood Gas Temperature 37.0 Oxygen Delivery Method (LAB) NASAL CANNULA FiO2 0.32 % Bicarbonate 16.2 mmol/L White Blood Count 10.8 10^3/uL Red Blood Count 3.42 10^6/uL Hemoglobin 10.3 g/dL Hematocrit 30.7 % Mean Corpuscular Volume 89.8 fL Mean Corpuscular Hemoglobin 30.1 pg Mean Corpuscular Hemoglobin Concent 33.6 g/dL Red Cell Distribution Width 14.2 % Platelet Count 225 10^3/uL Mean Platelet Volume 11.1 fL Neutrophils (%) (Auto) 89.8 % Lymphocytes (%) (Auto) 6.2 % Monocytes (%) (Auto) 3.8 % Neutrophils # (Auto) 9.7 10^3/uL Lymphocytes # (Auto) 0.7 10^3/uL Monocytes # (Auto) 0.4 10^3/uL Absolute Immature Granulocyte (auto 0.02 10^3 u/L Eosinophils % 0.0 % Basophils % 0.0 % Basophils # 0.0 10^3/uL Eosinophil Count 0.0 10^3/uL Sodium Level 139 mmol/L Potassium Level 3.4 mmol/L Chloride Level 108.0 mmol/L Carbon Dioxide Level 18.9 mmol/L Anion Gap 15.5 Blood Urea Nitrogen 21 mg/dL Creatinine 1.43 mg/dL Estimated GFR () 44.3 BUN/Creatinine Ratio 14.0 Glucose Level 143 mg/dL Hemoglobin A1c 5.8 % Calcium Level 9.2 mg/dL Total Bilirubin 0.3 mg/dL Aspartate Amino Transf (AST/SGOT) 19 U/L Alanine Aminotransferase (ALT/SGPT) 11 U/L Alkaline Phosphatase 110 U/L Total Protein 6.2 g/dL Albumin 2.7 g/dL Globulin 3.5 Triglycerides Level 64 mg/dL Cholesterol Level 223 mg/dL LDL Cholesterol, Calculated 163.2 VLDL Cholesterol 12.8 HDL Cholesterol 47 mg/dL Cholesterol Ratio (LDL/HDL) 4.975420 Percent Immature Gran (Cell Imm) 0.20 % Test 01/26/19 05:32 Differential Total Cells Counted 100 #CELLS Segmented Neutrophils 84 % Lymphocytes 14 % Monocytes 2 % Current Medications Medications (Trade) Dose Ordered Sig/Jacques PRN Reason Start Time Stop Time Status Last Admin Acetaminophen (Tylenol) 1,000 mg Q6HR PRN PAIN 01/26/19 00:30 02/25/19 00:29 01/26/19 00:33 Albuterol/ Ipratropium (Duoneb 0.5 Mg-3 Mg/3 ml Soln) 3 ml RTQ4 01/25/19 05:00 02/24/19 04:59 01/26/19 05:37 Aspirin (Aspirin) 81 mg DAILY 01/25/19 13:00 02/24/19 12:59 01/25/19 13:00 Azithromycin 500 mg/Sodium Chloride 250 ml @ 175 mls/hr Q24HRS 01/26/19 08:00 02/25/19 07:59 UNV Clopidogrel Bisulfate (Plavix) 75 mg DAILY 01/26/19 09:00 02/25/19 08:59 Dextrose (Dextrose 50%-Water Syringe) 25 ml STAT PRN HYPOGLYCEMIA 01/25/19 10:00 02/24/19 09:59 Enoxaparin Sodium (Lovenox) 40 mg DAILY 01/25/19 09:00 02/24/19 08:59 01/25/19 09:00 Hydralazine HCl (Apresoline) 10 mg Q4HR PRN HYPERTENSION 01/25/19 12:30 02/24/19 12:29 01/25/19 23:13 Ibuprofen (Motrin) 800 mg Q6H PRN PAIN 01/25/19 23:30 02/24/19 23:29 01/26/19 00:10 Insulin Glargine (Lantus) 20 unit HS 01/25/19 10:00 02/24/19 09:59 Future Hold 01/25/19 09:54 Insulin Human Regular (Humulin R) Give 30 minutes before meal ACHS 01/25/19 21:00 02/24/19 20:59 01/25/19 21:00 Levetiracetam (Keppra) 500 mg BID 01/25/19 12:31 02/24/19 12:30 01/25/19 21:05 Methylprednisolone Sodium Succinate (Solu-Medrol) 60 mg Q6 01/25/19 09:30 02/24/19 09:29 01/26/19 05:59 Morphine Sulfate (Duramorph) 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 Q4H PRN PAIN 01/26/19 03:00 02/25/19 02:59 UNV 01/26/19 02:59 Nifedipine (Procardia) 30 mg BID 01/25/19 12:00 02/24/19 11:59 01/25/19 21:05 Pantoprazole Sodium (Protonix Iv) 40 mg DAILY 01/25/19 09:00 02/24/19 08:59 01/25/19 09:00 Piperacillin Sod/ Tazobactam Sod 3.375 gm/Sodium Chloride 100 ml @ 100 mls/hr Q6H 01/25/19 02:30 02/24/19 02:29 01/26/19 02:30 Potassium Chloride (Klor-Con 10) 20 meq DAILY24 01/25/19 12:00 02/24/19 11:59 01/25/19 12:00 Propofol (Diprivan) 1,000 mg PRN PRN SEDATION 01/25/19 03:00 02/24/19 02:59 01/25/19 07:07 Sertraline HCl (Zoloft) 100 mg DAILY 01/26/19 09:00 02/25/19 08:59 Simvastatin (Zocor) 40 mg HS 01/25/19 21:00 02/24/19 20:59 01/25/19 21:05 Sodium Chloride 1,000 ml @ 125 mls/hr Q8H 01/25/19 03:30 02/24/19 03:29 01/26/19 00:18 Sepsis Infection Criteria Pres: Documented Infection LEVEL 1 SEPSIS INFECTION CRITE: Flu-Pneumonia, Urinary Tract Infection LEVEL 2-SIRS (LIST ALL THAT AP: [id number] Cardiovascular Evidence: Not Assessed or None Hematologic Evidence: None/Not assessed Hepatic Evidence: None/Not assessed Metabolic Evidence: None/Not assessed Neurological Evidence: None/Not assessed Respiratory Evidence: Need for O2 to keep>90%, O2 SAT<90room air Renal Evidence: None/Not assessed O2 Sat by Pulse Oximetry: 84 Respiratory End-tidal CO2: 22 Oxygen Flow Rate: 3.00 Assessment/Plan Assessment/Plan Assessment/Plan Patient is a 68 F PMH of Seizure Disorder, CAD, COPD presenting with respiratory failure from CAP/COPD. Plan 1.) Acute Respiratory Failure: 2/2 to CAP/COPD s/p extubation. Patient had hypoxic episode overnight 2/2 volume overload that improved with Lasix, Nitro, Morphine, and IV lopressor. 2.) Retroperitoneal Hematoma: Cards managing. Hg Stable, dAPT restarted. Leukocytosis worsening. Monitor closely, cont pain control. 3.) CAP - D/C IV abx, D/C IV steroids. 4.) Renal Failure - Cr/GFR improving. Continue gentle hydration. 5.) HTN: cont current regimen. 6. CAD/Elevated Troponins: s/p PCI w/ stent. Cont Statin/dAPT. Cards following. 7. PPx: PPI 8. DM: cont SSI to cover MAGUI CONNER MD Jan 29, 2019 07:37
[2019-01-29] MEDS ORDERED: DEXTROSE 50%-WATER SYRINGE IV PRN (08:00)
--- NOTE | 2019-01-29 08:10 | NUR ---
ASSESSMENT/ACTIVITY LEVEL B PATIENT REQUIRES ASSISTANCE TO GET OUT BED, ACTIVITY IS TAXING FOR PATIENT. ASSESSMENT COMPLETED CHARTED. PATIENT CONTINUES TO HAVE PAIN TO RIGHT ABDOMINAL SIDE. PATIENT TO BE MEDICATED, SEE EMAR. LUNG SOUNDS CLEAR AT THIS TIME. NO PITTING EDEMA NOTED. PATIENT WEARING SCD TO NERISSA LOWER EXT. FELIZ CATH TO GRAVITY DRAINING YELLOW URINE.CALL LIGHT WITHIN EASY REACH.
[2019-01-29] MEDS: PULMICORT IH SCH ×2 (08:16→23:22)
[2019-01-29] MEDS: ENTRESTO 24 MG-26 MG TABLET PO SCH ×2 (08:45→21:40)
[2019-01-29] MEDS: ZOLOFT PO SCH (08:46)
[2019-01-29] MEDS: PROTONIX IV IV SCH (08:46)
[2019-01-29] MEDS: APRESOLINE PO SCH ×3 (08:46→21:40)
[2019-01-29] MEDS: PROTONIX PO SCH (08:46)
[2019-01-29] MEDS: ASPIRIN EC PO SCH (08:46)
[2019-01-29] MEDS: BRILINTA PO SCH ×2 (08:46→21:40)
[2019-01-29] MEDS: HUMALOG SQ SCH ×3 (08:47→18:00)
[2019-01-29] MEDS: KEPPRA PO SCH ×2 (08:49→21:39)
[2019-01-29] MEDS ORDERED: COREG ONE (08:49)
[2019-01-29] MEDS: COREG PO SCH ×2 (09:00→21:40)
[2019-01-29] MEDS ORDERED: COREG PO SCH (09:00)
--- NOTE | 2019-01-29 09:02 | DIREP ---
PROCEDURE:CHEST 1 VIEW COMPARISON:[facility], CR, XRAY CHEST SINGLE VW, 01/28/2019, 08:05 AM. [facility], CT, CT ABD/PELVIS W/O, 01/27/2019, 03:24 PM. [facility], CR, XRAY CHEST SINGLE VW, 01/27/2019, 08:57 AM. INDICATIONS:Short of breath FINDINGS: LUNGS/PLEURA:Bilateral basilar infiltrates and bilateral pleural effusions have increased since the examination of yesterday. VASCULATURE:Normal. Unremarkable pulmonary vasculature. CARDIAC:Normal. No cardiac silhouette abnormality or cardiomegaly. MEDIASTINUM:Normal. No visible mass or adenopathy. BONES:Normal. No fracture or visible bony lesion. OTHER:EKG leads overlie the chest. CONCLUSION:Increased bilateral basilar infiltrates and pleural effusions since the examination of yesterday. Dictated by: Angel Griffith M.D. on 01/29/2019 at 08:59 AM
--- NOTE | 2019-01-29 09:39 | PCM.EKG ---
[facility] Test Date: 2019-01-29 Test Time: 04:51:08 Pat Name: HERBER ZARATE Department: Room: ICU5 A Gender: F Ribber: BRODY : [id number] Requested By: MAGUI CONNER Order Number: [id number] Reading MD: Richy Good Measurements Intervals [place] Rate: 131 P: 89 LA: 142 QRS: 93 QRSD: 86 T: -86 QT: 304 QTc: 448 Interpretive Statements Sinus tachycardia with occasional premature ventricular complexes Marked ST abnormality, possible inferior subendocardial injury Abnormal ECG Compared to ECG 01/26/2019 01:13:34 No significant changes Electronically Signed On 01-29-2019 10:19:12 CARDIOVASCULAR TECHNICIAN by Richy Good Please click the below link to view image of tracing.
--- NOTE | 2019-01-29 09:40 | NUR ---
DR. TORRES AT BEDSIDE ASSESSING PATIENT AND DISCUSSIG PLAN OF CARE. PATIENT TO TRANSFER TO MED/SURG TODAY.
--- NOTE | 2019-01-29 11:00 | NUR ---
SIDE OF BED PATIENT SAT ON SIDE OF BED WITH ONE PERSON ASSIST. NO DISTRESS NOTED. PATIENT SAT UP FOR 20 MINUTES, THEN LAID BACK IN BED WITH ONE PERSON ASSIST. CALL LIGHT WITHIN EASY REACH. HOB ELEVATED 30 DEGREES.
--- NOTE | 2019-01-29 13:00 | NUR ---
AMBULATION PATIENT ASSISTED WITH PERSON ASSIST IN TO CHAIR NEXT TO BED. SLIGHTLY TAXING TO PATIENT. PATIENT INSTRUCTED ON SLOW DEEP BREATHS. RT PRESENT, TO GIVEN SCHEDULED BREATHING TX.
[2019-01-29] MEDS: NS 1000 ML/KCL 40MEQ 1,000 ML IV SCH ×2 (13:03→21:39)
[2019-01-29] MEDS: ROCEPHIN 1,000 MG in NS 100ML 100 ML IV SCH (13:03)
--- NOTE | 2019-01-29 15:00 | NUR ---
ARRIVAL PATIENT ARRIVED ON MED-SURG UNIT AT THIS TIME TO ROOM #304. RECEIVED REPORT, ASSUMED CARE FOR PATIENT .
--- NOTE | 2019-01-29 15:00 | NUR ---
TRANSFER TO MS PATIENT TRANSFERRED TO MS VIA ON PORTABLE O2 AT 3L/MIN VIA NASAL CANULA. PATIENT BELONGINGS TRANSFERRED WITH PATIENT. REPORT GIVEN TO Angelina GARDNER RN. PATIENT ASSISTED IN TO MED/SURG BED WITH 1 PERSON ASSIST. HOB ELEVATED > 30 DEGREES. CALL LIGHT WITHIN EASY REACH. SIDE RAILS UP X2.
[2019-01-29] MEDS: LIPITOR PO SCH (21:39)
[2019-01-30 01:06] VITALS: BP 143/70
[2019-01-30] MEDS: DUONEB 0.5 MG-3 MG/3 ML SOLN IH SCH ×3 (01:41→08:13)
[2019-01-30 04:20] VITALS: BP 153/73
[2019-01-30 05:06] LABS: BASOPHIL % 0.2 % (0.0-0.2); EOSINOPHIL # 0.7 10^3/uL (0.0-0.2); EOSINOPHIL % 5.2 % (0.0-5.0); HEMOGLOBIN 10.4 g/dL (12.0-15.0); LYMPHOCYTES # 2.1 10^3/uL (1.0-4.8); LYMPHOCYTES % 15.4 % (24.0-44.0); MEAN CELL HGB 29.5 pg (26-34); MEAN CELL HGB CONCENTRATION 32.7 g/dL (33-37); MEAN CORP VOLUME 90.1 fL (78-100); MONOCYTES # 1.5 10^3/uL (0.3-0.8); MONOCYTES % 11.3 % (5.0-12.0); NEUTROPHILS % 67.2 % (41.0-85.0); RED CELL DISTRIBUTION WIDTH 14.9 % (11.5-14.5); WHITE BLOOD CELL 13.3 10^3/uL (4.5-11.0)
[2019-01-30 05:28] LABS: CALCIUM 9.1 mg/dL (8.4-10.5); CARBON DIOXIDE 26.5 mmol/L (20.0-32)
--- NOTE | 2019-01-30 06:30 | NUR ---
Report Received report and assumed care of pt. Pt resting in bed with eyes closed. Equal rise and fall of the chest noted. Call light within reach.
[2019-01-30] MEDS: HUMALOG SQ SCH ×3 (07:23→17:18)
--- NOTE | 2019-01-30 07:45 | NUR ---
Howe Catheter Drained 650 of clear yellow urine. Catheter removed. No s/s of distress noted. Denisha care provided. Educated pt on DTV time. Pt able to verbalize understanding.
[2019-01-30] MEDS: BRILINTA PO SCH ×2 (07:57→21:04)
[2019-01-30] MEDS: APRESOLINE PO SCH ×3 (07:57→21:04)
[2019-01-30] MEDS: ZOLOFT PO SCH (07:57)
[2019-01-30] MEDS: NORCO 5MG PO PRN ×2 (07:57→15:50)
[2019-01-30] MEDS: ENTRESTO 24 MG-26 MG TABLET PO SCH ×2 (07:58→21:04)
[2019-01-30] MEDS: PROTONIX PO SCH (07:58)
[2019-01-30] MEDS: COREG PO SCH ×2 (07:58→21:04)
[2019-01-30] MEDS: KEPPRA PO SCH ×2 (07:58→21:04)
[2019-01-30] MEDS: ASPIRIN EC PO SCH (07:59)
[2019-01-30] MEDS: ROCEPHIN 1,000 MG in NS 100ML 100 ML IV SCH (07:59)
[2019-01-30] MEDS: PULMICORT IH SCH ×2 (08:13→20:14)
[2019-01-30 08:21] VITALS: BP 148/69
--- NOTE | 2019-01-30 10:56 | DIREP ---
PROCEDURE:CHEST 2 VIEWS COMPARISON:[facility], CR, XRAY CHEST SINGLE VW, 01/29/2019, 08:36 AM. [facility], CR, XRAY CHEST SINGLE VW, 01/28/2019, 08:05 AM. INDICATIONS:chf FINDINGS: LUNGS/PLEURA:Small right pleural effusion and right lower lobe consolidation, with slightly improved aeration in the right lung base compared to prior study. Small left pleural effusion. Hyperinflated lung wood chronic interstitial changes. No pneumothorax. VASCULATURE:Normal. Unremarkable pulmonary vasculature. CARDIAC:Mild cardiomegaly. MEDIASTINUM:Normal. No visible mass or adenopathy. BONES:Mild degenerative change without evidence of acute osseus abnormality. OTHER:EKG leads overlie the chest. CONCLUSION: 1. Small right pleural effusion and right lower lobe consolidation, slightly improved when compared to prior study. 2. Small left pleural effusion. 3. Stable changes related to COPD/emphysema. Dictated by: Jm Bright MD on 01/30/2019 at 10:37 AM
--- NOTE | 2019-01-30 11:00 | NUR ---
Pt status Assisted pt to bathroom. Pt weak and unsteady with use of walker, gait belt and x1 assist. Pt states that she lives by herself. After talking, this nurse and the patient agree that shelter would be beneficial to patients care plan. Dr. Ferguson notifies. New orders received for PT eval and treat. Case management notified of pt request.
--- NOTE | 2019-01-30 11:10 | NUR ---
DISCHARGE UPDATE BROWN SHIPLEY RN CONTACTED CM ABOUT PATIENT'S REQUEST FOR SNF. CM SPOKE WITH PATIENT SHE CHOSE [facility]. CHOICE LETTER SIGNED AND PLACED ON CHART. CM CONTACTED CINTIA ARAMBULA ABOUT REFERRAL WITH DISCHARGE DATE OF SATURDAY. DISCHARGE GOAL IS TO DISCHARGE TO [facility] FOR SKILLED THERAPY ON SATURDAY. IF SNF IS NOT APPROVED PATIENT HAS [facility] SET UP THAT CAN FOLLOW AT HOME FOR SENIOR LIVING AND PT/OT SCREEN. CM WILL CONTINUE TO FOLLOW FOR DISCHARGE NEEDS.
--- NOTE | 2019-01-30 12:23 | PRM.PN ---
Subjective Subjective Date: Jan 30, 2019 Time: 12:15 Subjective Patient having worsening weakness and difficulty standing from sitting position. PT eval ordered. Patient requesting SNF placement. Labs, imaging reviewed. Patient History: Unknown 33 MOTHER 33 FATHER VTE VTE Risk Total Score: >5 VTE Risk Score VTE Risk: Score 0-1 = Low Risk (Aggressive mobilization; early ambulation; no VTE prophylaxis required) Score 2: Moderate Risk (Intermittent/Pneumatic Compression Device OR Lovenox/Heparin/Coumadin) Score 3-4: High Risk (Intermittent/Pneumatic Compression Device AND Lovenox/Heparin/Coumadin) Score > or =5: Highest Risk (Intermittent/Pneumatic Compression Device AND Lovenox/Heparin/Coumadin) Antico:Hep/LMWH/Coum/Xarelto: No Mechanical device ordered: Yes Reasons not ordering prophylax: At risk for falls Review of Systems Allergies: Coded Allergies: codeine (Verified Allergy, Unknown, 03/29/17) Scheduled Albuterol Sulfate (Ventolin Hfa), 18 GM IH Q6HR, (Reported) Carvedilol 3.125MG (Coreg 3.125MG), 1 TAB PO BID, (Reported) Clopidogrel Bisulfate (Plavix), 1 TAB PO DAILY, (Reported) Levetiracetam (Keppra), 500 MG PO BID Montelukast Sodium (Montelukast Sodium), 1 TAB PO HS, (Reported) Nifedipine (Nifedipine Er), 90 MG PO DAILY24, (Reported) Omeprazole (Omeprazole), 40 MG PO DAILY24, (Reported) Potassium Chloride (Potassium Chloride), 20 MEQ PO DAILY24 Sertraline Hcl (Zoloft), 1 TAB PO DAILY, (Reported) Simvastatin (Simvastatin), 1 TAB PO HS Trazodone Hcl (Trazodone Hcl), 1.5 TAB PO HS, (Reported) Umeclidinium Brm/Vilanterol Tr (Anoro Ellipta 62.5-25 Mcg INH), 1 EACH IH DAILY24, (Reported) Objective Vitals and I/O Vital Sign - Last 24 Hours 01/25/19 01/25/19 01/25/19 01/25/19 08:00 08:05 08:15 08:30 Temp 36.7 36.7 36.7 98.1 98.1 98.1 Pulse 58 57 62 67 Resp 15 15 17 16 B/P (MAP) 134/64 (87) 135/68 (90) 173/92 (119) Pulse Ox 99 99 99 99 FiO2 45 01/25/19 01/25/19 01/25/19 01/25/19 08:45 09:00 09:05 09:05 Temp 36.7 36.8 98.1 98.2 Pulse 56 56 58 55 Resp 15 15 15 15 B/P (MAP) 167/72 (103) 131/68 (89) Pulse Ox 100 99 97 99 01/25/19 01/25/19 01/25/19 01/25/19 09:15 09:30 09:45 10:00 Temp 36.8 36.8 36.8 36.8 98.2 98.2 98.2 98.2 Pulse 57 62 55 57 Resp 16 15 16 B/P (MAP) 141/70 (93) 136/59 (84) 145/64 (91) 133/67 (89) Pulse Ox 99 98 97 95 01/25/19 01/25/19 01/25/19 01/25/19 10:10 10:15 10:30 10:42 Temp 36.7 36.7 98.1 98.1 Pulse 55 56 58 Resp 15 17 16 B/P (MAP) 152/72 (98) 158/69 (98) 168/76 Pulse Ox 98 96 98 FiO2 30 01/25/19 01/25/19 01/25/19 01/25/19 10:45 11:00 11:15 11:30 Temp 36.7 36.7 36.7 36.8 98.1 98.1 98.1 98.2 Pulse 54 57 60 65 Resp 15 16 15 15 B/P (MAP) 162/64 (96) 168/76 (106) 172/74 (106) 178/79 (112) Pulse Ox 95 97 97 96 01/25/19 01/25/19 01/25/19 01/25/19 11:45 12:00 12:00 12:00 Temp 36.8 36.8 98.2 98.2 Pulse 66 56 66 Resp 16 18 B/P (MAP) 153/85 (107) 166/76 (106) Pulse Ox 96 99 96 O2 Delivery Mechanical Ventilator FiO2 30 01/25/19 01/25/19 01/25/19 01/25/19 12:15 12:30 12:40 12:40 Temp 36.9 36.9 98.4 98.4 Pulse 67 74 72 72 B/P (MAP) 175/79 (111) 174/84 (114) 180/83 Pulse Ox 95 95 94 01/25/19 01/25/19 01/25/19 01/25/19 12:40 12:40 12:45 13:00 Temp 36.9 98.4 Pulse 70 70 74 68 Resp 20 12 24 B/P (MAP) 176/84 (114) Pulse Ox 94 94 95 95 FiO2 30 28 01/25/19 01/25/19 01/25/19 01/25/19 13:00 13:15 13:16 13:20 Temp 37.0 37.1 37.1 98.6 98.8 98.8 Pulse 67 73 74 72 Resp 16 B/P (MAP) 180/83 (115) 167/71 (103) Pulse Ox 94 95 96 95 FiO2 28 01/25/19 01/25/19 01/25/19 01/25/19 13:30 13:45 13:53 14:00 Temp 37.2 37.3 37.3 37.3 99.0 99.1 99.1 99.1 Pulse 65 70 68 64 B/P (MAP) 148/60 (89) 139/101 (114) 147/64 (91) 149/69 (95) Pulse Ox 94 95 95 94 01/25/19 01/25/19 01/25/19 01/25/19 14:15 14:30 14:45 15:00 Temp 37.4 37.4 37.3 37.3 99.3 99.3 99.1 99.1 Pulse 66 77 76 75 Resp 20 16 19 B/P (MAP) 147/67 (93) 125/60 (81) 119/60 (79) 124/64 (84) Pulse Ox 95 94 95 94 01/25/19 01/25/19 01/25/19 01/25/19 15:15 15:30 15:45 16:00 Temp 37.3 37.3 37.3 37.3 99.1 99.1 99.1 99.1 Pulse 83 79 77 78 Resp 19 19 25 18 B/P (MAP) 126/61 (82) 118/56 (76) 127/63 (84) 99/53 (68) Pulse Ox 94 93 95 95 01/25/19 01/25/19 01/25/19 01/25/19 16:00 16:15 16:30 16:45 Temp 37.3 37.3 37.3 99.1 99.1 99.1 Pulse 81 76 77 Resp 17 17 13 B/P (MAP) 132/63 (86) 147/59 (88) 143/86 (105) Pulse Ox 95 95 95 O2 Delivery Nasal Cannula O2 Flow Rate 2.00 01/25/19 01/25/19 01/25/19 01/25/19 17:00 17:06 17:15 17:30 Temp 37.3 37.3 37.3 37.3 99.1 99.1 99.1 99.1 Pulse 75 76 79 80 Resp 10 13 19 17 B/P (MAP) 146/115 (125) 142/72 (95) 146/75 (98) 128/66 (86) Pulse Ox 97 93 95 96 01/25/19 01/25/19 01/25/19 01/25/19 17:45 18:00 18:10 18:10 Temp 37.4 37.4 99.3 99.3 Pulse 80 80 75 80 Resp 18 19 16 16 B/P (MAP) 146/63 (90) 148/62 (90) Pulse Ox 95 96 97 98 01/25/19 01/25/19 01/25/19 01/25/19 18:15 18:30 19:00 19:00 Temp 37.3 37.3 37.3 99.1 99.1 99.1 Pulse 80 79 77 Resp 17 23 29 B/P (MAP) 151/65 (93) 165/73 (103) 154/112 (126) Pulse Ox 96 96 96 O2 Delivery Nasal Cannula O2 Flow Rate 2.00 01/25/19 01/25/19 01/25/19 01/25/19 19:15 19:30 19:45 20:00 Temp 37.2 37.2 37.3 99.0 99.0 99.1 Pulse 82 76 77 79 Resp 22 11 11 18 B/P (MAP) 146/76 (99) 147/56 (86) 159/78 (105) Pulse Ox 96 96 96 98 O2 Delivery Nasal Cannula O2 Flow Rate 2.00 FiO2 28 01/25/19 01/25/19 01/25/19 01/25/19 20:00 20:00 20:15 20:15 Temp 37.3 37.2 99.1 99.0 Pulse 79 80 81 80 Resp 18 18 18 12 B/P (MAP) 161/78 (105) Pulse Ox 98 96 99 98 01/25/19 01/25/19 01/25/19 01/25/19 20:30 20:45 21:00 21:05 Pulse 83 82 89 98 Resp 11 23 15 B/P (MAP) 165/77 (106) 142/65 (90) 153/62 Pulse Ox 99 98 98 01/25/19 01/25/19 01/25/19 01/25/19 21:15 21:30 21:45 22:00 Pulse 91 95 97 100 Resp 18 18 40 15 B/P (MAP) 153/62 (92) 173/97 (122) Pulse Ox 98 99 97 95 01/25/19 01/25/19 01/25/19 01/25/19 22:15 22:30 22:45 23:00 Pulse 96 95 91 96 Resp 14 20 15 19 B/P (MAP) 162/83 (109) 150/79 (102) Pulse Ox 98 97 99 97 01/25/19 01/25/19 01/25/19 01/25/19 23:00 23:13 23:15 23:30 Pulse 96 93 101 Resp 21 20 B/P (MAP) 160/74 160/74 (102) Pulse Ox 98 97 O2 Delivery Nasal Cannula O2 Flow Rate 2.00 01/25/19 01/26/19 01/26/19 01/26/19 23:45 00:00 00:15 00:45 Pulse 92 95 101 110 Resp 14 20 12 12 B/P (MAP) 138/61 (86) Pulse Ox 96 97 96 93 01/26/19 01/26/19 01/26/19 01/26/19 01:00 01:10 01:15 01:21 Pulse 115 107 106 102 Resp 16 28 24 21 B/P (MAP) 171/96 (121) 159/86 (110) Pulse Ox 93 88 91 89 3/4/19 3/4/19 3/4/19 3/4/19 01:30 01:30 01:45 02:00 Pulse 114 118 116 122 Resp 18 30 19 B/P (MAP) 176/94 (121) 171/96 Pulse Ox 93 88 92 01/26/19 01/26/19 01/26/19 01/26/19 02:00 02:15 02:30 02:45 Pulse 117 123 118 109 Resp 14 16 17 23 B/P (MAP) 145/52 (83) 119/62 (81) Pulse Ox 92 91 89 90 01/26/19 01/26/19 01/26/19 01/26/19 03:00 03:15 03:30 03:45 Pulse 116 117 111 112 Resp 24 20 17 11 B/P (MAP) 137/70 (92) 146/76 (99) 124/59 (80) 126/59 (81) Pulse Ox 88 86 86 86 01/26/19 01/26/19 01/26/19 01/26/19 04:00 04:00 04:15 04:30 Temp 99.4 99.4 Pulse 107 102 102 Resp 17 16 15 B/P (MAP) 123/50 (74) 116/52 (73) 120/59 (79) Pulse Ox 86 89 88 O2 Delivery Nasal Cannula O2 Flow Rate 2.00 01/26/19 01/26/19 01/26/19 01/26/19 04:45 04:45 05:00 05:00 Pulse 106 103 105 104 Resp 15 18 16 16 B/P (MAP) 125/59 (81) 119/49 (72) Pulse Ox 89 88 89 93 01/26/19 01/26/19 01/26/19 01/26/19 05:15 05:30 05:45 06:00 Pulse 105 102 89 89 Resp 16 19 17 14 B/P (MAP) 119/56 (77) 127/64 (85) 127/56 (79) 126/59 (81) Pulse Ox 92 89 91 92 Intake and Output 01/25/19 01/25/19 01/26/19 14:59 22:59 06:59 Intake Total 2244 ml Output Total 800 ml 400 ml Balance -800 ml 1844 ml General: Alert, Oriented X3, Cooperative, No acute distress HEENT: Atraumatic, PERRLA, EOMI, Mucous membr. moist/pink Neck: Supple, No JVD Lungs: Normal air movement, Other (bilateral bibasilar crackles) Heart: Normal S1, Normal S2 Abdomen: Normal bowel sounds, Soft, Other (tenderness to palpation diffusely) Extremities: No clubbing, No cyanosis, Normal pulses, No tenderness/swelling Skin: No rashes, No breakdown, No significant lesion Neuro: Normal speech, Strength at 5/5 X4 ext, Normal tone, Sensation intact, Cranial nerves 3-12 NL Psych/Mental Status: Mental status NL, Mood NL All Results(Lab/Rad) Laboratory Tests Test 01/25/19 08:00 01/25/19 13:10 01/25/19 13:35 01/25/19 18:50 Blood Gas Sample Site LEFT BRACHIAL ARTRY Blood Gas pH 7.331 Blood Gas PCO2 35.6 mmHg Blood Gas PO2 107.4 mmHg Blood Gas HCO3 18.4 mmol/L Blood Gas Base Excess -6.8 mmol/L Jose Test N/A Arterial Blood Oxygen Saturation 96.8 % Deoxyhemoglobin 3.2 % Carboxyhemoglobin 0.6 % Methemoglobin 0.3 % Total Hemoglobin 11.3 % Total Oxygen Concentration 15.4 % Lactic Acid (Blood Gas) 1.2 MMOL/L Blood Gas Temperature 37 Blood Gas Vent Mode SIMV Blood Gas Vent Rate 15 FiO2 45 % Blood Gas Tidal Volume 450 ML Blood Gas PEEP 5 CMH2O Blood Gas Pressure Support 10 CMH2O Bicarbonate 19.5 mmol/L White Blood Count 10.6 10^3/uL Red Blood Count 3.98 10^6/uL Hemoglobin 11.8 g/dL Hematocrit 35.2 % Mean Corpuscular Volume 88.4 fL Mean Corpuscular Hemoglobin 29.6 pg Mean Corpuscular Hemoglobin Concent 33.5 g/dL Red Cell Distribution Width 14.2 % Platelet Count 242 10^3/uL Mean Platelet Volume 11.1 fL Neutrophils (%) (Auto) 90.9 % Lymphocytes (%) (Auto) 6.2 % Monocytes (%) (Auto) 1.7 % Neutrophils # (Auto) 9.7 10^3/uL Lymphocytes # (Auto) 0.7 10^3/uL Monocytes # (Auto) 0.2 10^3/uL Absolute Immature Granulocyte (auto 0.03 10^3 u/L Eosinophils % 0.6 % Basophils % 0.3 % Basophils # 0.0 10^3/uL Eosinophil Count 0.1 10^3/uL Troponin I 1.27 ng/mL 0.90 ng/mL Pro-B-Type Natriuretic Peptide 73565 pg/mL Percent Immature Gran (Cell Imm) 0.30 % Differential Total Cells Counted 100 #CELLS Segmented Neutrophils 92 % Band Neutrophils 1 % Lymphocytes 7 % Platelet Morphology NORMAL Poikilocytosis 1+ Anisocytosis 1+ Test 01/26/19 01:31 01/26/19 04:50 01/26/19 04:58 01/26/19 05:32 Vancomycin Level Trough 22.8 ug/mL Blood Gas Sample Site RT BRACIAL ARTERY Blood Gas pH 7.386 Blood Gas PCO2 26.3 mmHg Blood Gas PO2 73.0 mmHg Blood Gas HCO3 15.4 mmol/L Blood Gas Base Excess -8.2 mmol/L Jose Test N/A Arterial Blood Oxygen Saturation 93.5 % Deoxyhemoglobin 6.4 % Carboxyhemoglobin 1.1 % Methemoglobin 0.5 % Total Hemoglobin 11.0 % Total Oxygen Concentration 14.3 % Lactic Acid (Blood Gas) 1.9 MMOL/L Blood Gas Temperature 37.0 Oxygen Delivery Method (LAB) NASAL CANNULA FiO2 0.32 % Bicarbonate 16.2 mmol/L White Blood Count 10.8 10^3/uL Red Blood Count 3.42 10^6/uL Hemoglobin 10.3 g/dL Hematocrit 30.7 % Mean Corpuscular Volume 89.8 fL Mean Corpuscular Hemoglobin 30.1 pg Mean Corpuscular Hemoglobin Concent 33.6 g/dL Red Cell Distribution Width 14.2 % Platelet Count 225 10^3/uL Mean Platelet Volume 11.1 fL Neutrophils (%) (Auto) 89.8 % Lymphocytes (%) (Auto) 6.2 % Monocytes (%) (Auto) 3.8 % Neutrophils # (Auto) 9.7 10^3/uL Lymphocytes # (Auto) 0.7 10^3/uL Monocytes # (Auto) 0.4 10^3/uL Absolute Immature Granulocyte (auto 0.02 10^3 u/L Eosinophils % 0.0 % Basophils % 0.0 % Basophils # 0.0 10^3/uL Eosinophil Count 0.0 10^3/uL Sodium Level 139 mmol/L Potassium Level 3.4 mmol/L Chloride Level 108.0 mmol/L Carbon Dioxide Level 18.9 mmol/L Anion Gap 15.5 Blood Urea Nitrogen 21 mg/dL Creatinine 1.43 mg/dL Estimated GFR () 44.3 BUN/Creatinine Ratio 14.0 Glucose Level 143 mg/dL Hemoglobin A1c 5.8 % Calcium Level 9.2 mg/dL Total Bilirubin 0.3 mg/dL Aspartate Amino Transf (AST/SGOT) 19 U/L Alanine Aminotransferase (ALT/SGPT) 11 U/L Alkaline Phosphatase 110 U/L Total Protein 6.2 g/dL Albumin 2.7 g/dL Globulin 3.5 Triglycerides Level 64 mg/dL Cholesterol Level 223 mg/dL LDL Cholesterol, Calculated 163.2 VLDL Cholesterol 12.8 HDL Cholesterol 47 mg/dL Cholesterol Ratio (LDL/HDL) 4.604602 Percent Immature Gran (Cell Imm) 0.20 % Differential Total Cells Counted 100 #CELLS Segmented Neutrophils 84 % Lymphocytes 14 % Monocytes 2 % Current Medications Medications (Trade) Dose Ordered Sig/Jacques Route PRN Reason Start Time Stop Time Status Last Admin Dose Admin Propofol 100 ml @ ud STK-MED ONCE IV 01/25/19 01:10 01/25/19 01:12 DC Propofol (Diprivan) 200 mg STK-MED ONCE IV 01/25/19 01:10 01/25/19 01:12 DC Sodium Chloride 1,000 ml @ 0 mls/hr Q0M STAT IV 01/25/19 01:31 01/25/19 01:34 DC 01/25/19 01:48 Albuterol/ Ipratropium (Duoneb 0.5 Mg-3 Mg/3 ml Soln) 3 ml STK-MED ONCE IH 01/25/19 01:35 01/25/19 01:36 DC Albuterol Sulfate (Ventolin) 2.5 mg STK-MED ONCE IH 01/25/19 01:35 01/25/19 01:36 DC Albuterol/ Ipratropium (Duoneb 0.5 Mg-3 Mg/3 ml Soln) 3 ml STAT STAT IH 01/25/19 01:58 01/25/19 02:00 DC 01/25/19 02:07 Albuterol Sulfate (Ventolin) 2.5 mg STAT STAT IH 01/25/19 01:58 01/25/19 02:00 DC 01/25/19 02:07 Vancomycin HCl 900 mg/Sodium Chloride 100 ml @ 100 mls/hr Q8H IV 01/25/19 02:30 3/3/19 08:38 DC 01/25/19 03:09 Piperacillin Sod/ Tazobactam Sod 3.375 gm/Sodium Chloride 100 ml @ 100 mls/hr Q6H IV 01/25/19 02:30 02/24/19 02:29 01/26/19 02:30 Albuterol/ Ipratropium (Duoneb 0.5 Mg-3 Mg/3 ml Soln) 3 ml RTQ4 IH 01/25/19 05:00 02/24/19 04:59 01/26/19 05:37 Enoxaparin Sodium (Lovenox) 40 mg DAILY SQ 01/25/19 09:00 02/24/19 08:59 01/25/19 09:00 Pantoprazole Sodium (Protonix Iv) 40 mg DAILY IV 01/25/19 09:00 02/24/19 08:59 01/25/19 09:00 Propofol (Diprivan) 1,000 mg PRN PRN IV SEDATION 01/25/19 03:00 02/24/19 02:59 01/25/19 07:07 Sodium Chloride 1,000 ml @ 125 mls/hr Q8H IV 01/25/19 03:30 02/24/19 03:29 01/26/19 00:18 Sodium Chloride 100 ml @ ud STK-MED ONCE IV 01/25/19 03:11 01/25/19 03:12 DC Sodium Chloride 2,000 ml @ ud STK-MED ONCE .ROUTE 01/25/19 03:11 01/25/19 03:12 DC Sodium Chloride 250 ml @ ud STK-MED ONCE IV 01/25/19 03:11 01/25/19 03:12 DC Vancomycin HCl 1 ml @ ud STK-MED ONCE .ROUTE 01/25/19 03:11 01/25/19 03:13 DC Piperacillin Sod/ Tazobactam Sod (Zosyn 3.375 Gram Vial) 3.375 gm STK-MED ONCE IV 01/25/19 03:12 01/25/19 03:13 DC Sterile Water (Water) 1,000 ml STK-MED ONCE .ROUTE 01/25/19 06:54 01/25/19 06:55 DC Sodium Chloride 100 ml @ ud STK-MED ONCE IV 01/25/19 07:31 01/25/19 07:32 DC Piperacillin Sod/ Tazobactam Sod (Zosyn 3.375 Gram Vial) 3.375 gm STK-MED ONCE IV 01/25/19 07:31 01/25/19 07:32 DC Pantoprazole Sodium (Protonix Iv) 40 mg STK-MED ONCE IV 01/25/19 07:35 01/25/19 07:36 DC Enoxaparin Sodium (Lovenox) 40 mg STK-MED ONCE SQ 01/25/19 07:35 01/25/19 07:37 DC Vancomycin HCl 0.9 gm/Sodium Chloride 250 ml @ 175 mls/hr Q8H IV 01/25/19 10:00 01/26/19 07:49 DC 01/25/19 18:00 Sodium Chloride 500 ml @ ud STK-MED ONCE IV 01/25/19 09:05 01/25/19 09:06 DC Sodium Chloride 500 ml @ 500 mls/hr Q1H ONCE IV 01/25/19 09:30 01/25/19 10:29 DC 01/25/19 09:09 Methylprednisolone Sodium Succinate (Solu-Medrol) 60 mg Q6 IV 01/25/19 09:30 02/24/19 09:29 01/26/19 05:59 Insulin Human Regular (Humulin R) Give 30 minutes before meal ACHS SQ 01/25/19 11:30 01/25/19 20:45 DC Dextrose (Dextrose 50%-Water Syringe) 25 ml STAT PRN IV [id number] 01/25/19 10:00 02/24/19 09:59 Insulin Glargine (Lantus) 20 unit HS SQ 01/25/19 10:00 02/24/19 09:59 Future Hold 01/25/19 09:54 Furosemide (Lasix) 20 mg STK-MED ONCE .ROUTE 01/25/19 10:30 01/25/19 10:31 DC Furosemide (Lasix) 20 mg OT ONCE IV 01/25/19 11:00 01/25/19 11:01 DC 01/25/19 10:42 Carvedilol (Coreg) 3.125 mg BID PO 01/25/19 21:00 01/26/19 07:49 DC 01/25/19 21:05 Clopidogrel Bisulfate (Plavix) 75 mg DAILY PO 01/26/19 09:00 02/25/19 08:59 Levetiracetam (Keppra) 500 mg BID PO 01/25/19 12:31 02/24/19 12:30 01/25/19 21:05 Nifedipine (Procardia) 30 mg BID PO 01/25/19 12:00 02/24/19 11:59 01/25/19 21:05 Pantoprazole Sodium (Protonix) 40 mg DAILY PO 01/25/19 12:28 01/25/19 12:55 DC Potassium Chloride (Klor-Con 10) 20 meq DAILY24 PO 01/25/19 12:00 02/24/19 11:59 01/25/19 12:00 Sertraline HCl (Zoloft) 100 mg DAILY PO 01/26/19 09:00 02/25/19 08:59 Simvastatin (Zocor) 40 mg HS PO 01/25/19 21:00 02/24/19 20:59 01/25/19 21:05 Hydralazine HCl (Apresoline) 10 mg Q4HR PRN IV HYPERTENSION 01/25/19 12:30 02/24/19 12:29 01/25/19 23:13 Hydralazine HCl (Apresoline) 10 mg STK-MED ONCE .ROUTE 01/25/19 12:29 01/25/19 12:31 DC Hydralazine HCl (Apresoline) 20 mg STK-MED ONCE .ROUTE 01/25/19 12:31 01/25/19 12:32 DC Aspirin (Aspirin) 81 mg DAILY PO 01/25/19 13:00 02/24/19 12:59 01/25/19 13:00 Insulin Human Regular (Humulin R) Give 30 minutes before meal ACHS SQ 01/25/19 21:00 02/24/19 20:59 01/25/19 21:00 Ibuprofen (Motrin) 800 mg Q6H PRN PO PAIN 01/25/19 23:30 02/24/19 23:29 01/26/19 00:10 Acetaminophen (Tylenol) 1,000 mg Q6HR PRN PO PAIN 01/26/19 00:30 02/25/19 00:29 01/26/19 00:33 Lorazepam (Ativan) 2 mg STK-MED ONCE .ROUTE 01/26/19 01:43 01/26/19 01:45 DC Lorazepam (Ativan) 1 mg STAT STAT IV 01/26/19 01:45 01/26/19 01:46 DC 01/26/19 01:45 Metoprolol Tartrate (Lopresser) 5 mg STK-MED ONCE .ROUTE 01/26/19 01:58 01/26/19 02:00 DC Metoprolol Tartrate (Lopresser) 5 mg STAT STAT IVP 01/26/19 02:00 01/26/19 02:13 DC 01/26/19 02:00 Morphine Sulfate (Morphine Sulfate) 4 mg STK-MED ONCE .ROUTE 01/26/19 02:48 01/26/19 02:49 DC Morphine Sulfate (Duramorph) 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 Q4H PRN IV PAIN 01/26/19 03:00 02/25/19 02:59 UNV 01/26/19 02:59 Azithromycin 500 mg/Sodium Chloride 250 ml @ 175 mls/hr Q24HRS IV 01/26/19 08:00 02/25/19 07:59 UNV Course Sepsis Screening Results: Posi: POSITIVE Sepsis Qualifier/Stage: SEPSIS RISK Duration or Total Time Spent w: 90 Vitals & review Data Vital Sign - Last 24 Hours 01/25/19 01/25/19 01/25/19 01/25/19 08:00 08:05 08:15 08:30 Temp 36.7 36.7 36.7 98.1 98.1 98.1 Pulse 58 57 62 67 Resp 15 15 17 16 B/P (MAP) 134/64 (87) 135/68 (90) 173/92 (119) Pulse Ox 99 99 99 99 FiO2 45 01/25/19 01/25/19 01/25/19 01/25/19 08:45 09:00 09:05 09:05 Temp 36.7 36.8 98.1 98.2 Pulse 56 56 58 55 Resp 15 15 15 15 B/P (MAP) 167/72 (103) 131/68 (89) Pulse Ox 100 99 97 99 01/25/19 01/25/19 01/25/19 01/25/19 09:15 09:30 09:45 10:00 Temp 36.8 36.8 36.8 36.8 98.2 98.2 98.2 98.2 Pulse 57 62 55 57 Resp 16 15 16 B/P (MAP) 141/70 (93) 136/59 (84) 145/64 (91) 133/67 (89) Pulse Ox 99 98 97 95 01/25/19 01/25/19 01/25/19 01/25/19 10:10 10:15 10:30 10:42 Temp 36.7 36.7 98.1 98.1 Pulse 55 56 58 Resp 15 17 16 B/P (MAP) 152/72 (98) 158/69 (98) 168/76 Pulse Ox 98 96 98 FiO2 30 01/25/19 01/25/19 01/25/19 01/25/19 10:45 11:00 11:15 11:30 Temp 36.7 36.7 36.7 36.8 98.1 98.1 98.1 98.2 Pulse 54 57 60 65 Resp 15 16 15 15 B/P (MAP) 162/64 (96) 168/76 (106) 172/74 (106) 178/79 (112) Pulse Ox 95 97 97 96 01/25/19 01/25/19 01/25/19 01/25/19 11:45 12:00 12:00 12:00 Temp 36.8 36.8 98.2 98.2 Pulse 66 56 66 Resp 16 18 B/P (MAP) 153/85 (107) 166/76 (106) Pulse Ox 96 99 96 O2 Delivery Mechanical Ventilator FiO2 30 01/25/19 01/25/19 01/25/19 01/25/19 12:15 12:30 12:40 12:40 Temp 36.9 36.9 98.4 98.4 Pulse 67 74 72 72 B/P (MAP) 175/79 (111) 174/84 (114) 180/83 Pulse Ox 95 95 94 01/25/19 01/25/19 01/25/19 01/25/19 12:40 12:40 12:45 13:00 Temp 36.9 98.4 Pulse 70 70 74 68 Resp 20 12 24 B/P (MAP) 176/84 (114) Pulse Ox 94 94 95 95 FiO2 30 28 01/25/19 01/25/19 01/25/19 01/25/19 13:00 13:15 13:16 13:20 Temp 37.0 37.1 37.1 98.6 98.8 98.8 Pulse 67 73 74 72 Resp 16 B/P (MAP) 180/83 (115) 167/71 (103) Pulse Ox 94 95 96 95 FiO2 28 01/25/19 01/25/19 01/25/19 01/25/19 13:30 13:45 13:53 14:00 Temp 37.2 37.3 37.3 37.3 99.0 99.1 99.1 99.1 Pulse 65 70 68 64 B/P (MAP) 148/60 (89) 139/101 (114) 147/64 (91) 149/69 (95) Pulse Ox 94 95 95 94 01/25/19 01/25/19 01/25/19 01/25/19 14:15 14:30 14:45 15:00 Temp 37.4 37.4 37.3 37.3 99.3 99.3 99.1 99.1 Pulse 66 77 76 75 Resp 20 16 19 B/P (MAP) 147/67 (93) 125/60 (81) 119/60 (79) 124/64 (84) Pulse Ox 95 94 95 94 01/25/19 01/25/19 01/25/19 01/25/19 15:15 15:30 15:45 16:00 Temp 37.3 37.3 37.3 37.3 99.1 99.1 99.1 99.1 Pulse 83 79 77 78 Resp 19 19 25 18 B/P (MAP) 126/61 (82) 118/56 (76) 127/63 (84) 99/53 (68) Pulse Ox 94 93 95 95 01/25/19 01/25/19 01/25/19 01/25/19 16:00 16:15 16:30 16:45 Temp 37.3 37.3 37.3 99.1 99.1 99.1 Pulse 81 76 77 Resp 17 17 13 B/P (MAP) 132/63 (86) 147/59 (88) 143/86 (105) Pulse Ox 95 95 95 O2 Delivery Nasal Cannula O2 Flow Rate 2.00 01/25/19 01/25/19 01/25/19 01/25/19 17:00 17:06 17:15 17:30 Temp 37.3 37.3 37.3 37.3 99.1 99.1 99.1 99.1 Pulse 75 76 79 80 Resp 11 19 19 17 B/P (MAP) 146/115 (125) 142/72 (95) 146/75 (98) 128/66 (86) Pulse Ox 97 93 95 96 01/25/19 01/25/19 01/25/19 01/25/19 17:45 18:00 18:10 18:10 Temp 37.4 37.4 99.3 99.3 Pulse 80 80 75 80 Resp 18 19 16 16 B/P (MAP) 146/63 (90) 148/62 (90) Pulse Ox 95 96 97 98 01/25/19 01/25/19 01/25/19 01/25/19 18:15 18:30 19:00 19:00 Temp 37.3 37.3 37.3 99.1 99.1 99.1 Pulse 80 79 77 Resp 17 23 29 B/P (MAP) 151/65 (93) 165/73 (103) 154/112 (126) Pulse Ox 96 96 96 O2 Delivery Nasal Cannula O2 Flow Rate 2.00 01/25/19 01/25/19 01/25/19 01/25/19 19:15 19:30 19:45 20:00 Temp 37.2 37.2 37.3 99.0 99.0 99.1 Pulse 82 76 77 79 Resp 22 11 11 18 B/P (MAP) 146/76 (99) 147/56 (86) 159/78 (105) Pulse Ox 96 96 96 98 O2 Delivery Nasal Cannula O2 Flow Rate 2.00 FiO2 28 01/25/19 01/25/19 01/25/19 01/25/19 20:00 20:00 20:15 20:15 Temp 37.3 37.2 99.1 99.0 Pulse 79 80 81 80 Resp 18 18 18 12 B/P (MAP) 161/78 (105) Pulse Ox 98 96 99 98 01/25/19 01/25/19 01/25/19 01/25/19 20:30 20:45 21:00 21:05 Pulse 83 82 89 98 Resp 11 23 15 B/P (MAP) 165/77 (106) 142/65 (90) 153/62 Pulse Ox 99 98 98 01/25/19 01/25/19 01/25/193/19 21:15 21:30 21:45 22:00 Pulse 91 95 97 100 Resp 18 18 40 15 B/P (MAP) 153/62 (92) 173/97 (122) Pulse Ox 98 99 97 95 01/25/19 01/25/19 01/25/19 01/25/19 22:15 22:30 22:45 23:00 Pulse 96 95 91 96 Resp 14 20 15 19 B/P (MAP) 162/83 (109) 150/79 (102) Pulse Ox 98 97 99 97 01/25/19 01/25/19 01/25/19 01/25/19 23:00 23:13 23:15 23:30 Pulse 96 93 101 Resp 21 20 B/P (MAP) 160/74 160/74 (102) Pulse Ox 98 97 O2 Delivery Nasal Cannula O2 Flow Rate 2.00 01/25/19 01/26/19 01/26/19 01/26/19 23:45 00:00 00:15 00:45 Pulse 92 95 101 110 Resp 14 20 12 12 B/P (MAP) 138/61 (86) Pulse Ox 96 97 96 93 01/26/19 01/26/19 01/26/19 01/26/19 01:00 01:10 01:15 01:21 Pulse 115 107 106 102 Resp 16 28 24 21 B/P (MAP) 171/96 (121) 159/86 (110) Pulse Ox 93 88 91 89 01/26/19 01/26/19 01/26/19 01/26/19 01:30 01:30 01:45 02:00 Pulse 114 118 116 122 Resp 18 30 19 B/P (MAP) 176/94 (121) 171/96 Pulse Ox 93 88 92 01/26/19 01/26/19 01/26/19 01/26/19 02:00 02:15 02:30 02:45 Pulse 117 123 118 109 Resp 14 16 17 23 B/P (MAP) 145/52 (83) 119/62 (81) Pulse Ox 92 91 89 90 01/26/19 01/26/19 01/26/19 01/26/19 03:00 03:15 03:30 03:45 Pulse 116 117 111 112 Resp 24 20 17 11 B/P (MAP) 137/70 (92) 146/76 (99) 124/59 (80) 126/59 (81) Pulse Ox 88 86 86 86 01/26/19 01/26/19 01/26/19 01/26/19 04:00 04:00 04:15 04:30 Temp 99.4 99.4 Pulse 107 102 102 Resp 17 16 15 B/P (MAP) 123/50 (74) 116/52 (73) 120/59 (79) Pulse Ox 86 89 88 O2 Delivery Nasal Cannula O2 Flow Rate 2.00 01/26/19 01/26/19 01/26/19 01/26/19 04:45 04:45 05:00 05:00 Pulse 106 103 105 104 Resp 15 18 16 16 B/P (MAP) 125/59 (81) 119/49 (72) Pulse Ox 89 88 89 93 01/26/19 01/26/19 01/26/19 01/26/19 05:15 05:30 05:45 06:00 Pulse 105 102 89 89 Resp 16 19 17 14 B/P (MAP) 119/56 (77) 127/64 (85) 127/56 (79) 126/59 (81) Pulse Ox 92 89 91 92 Intake and Output 01/25/19 01/25/19 01/26/19 14:59 22:59 06:59 Intake Total 2244 ml Output Total 800 ml 400 ml Balance -800 ml 1844 ml Laboratory Tests Test 01/25/19 01:10 01/25/19 01:15 01/25/19 01:31 01/25/19 02:12 Blood Gas Sample Site LEFT RADIAL ARTERY Blood Gas pH 7.188 Blood Gas PCO2 46.6 mmHg Blood Gas PO2 179.8 mmHg Blood Gas HCO3 17.3 mmol/L Blood Gas Base Excess -10.7 mmol/L Jose Test POSITIVE Arterial Blood Oxygen Saturation 98.5 % Deoxyhemoglobin 1.4 % Carboxyhemoglobin 5.0 % Methemoglobin 0.4 % Total Hemoglobin 13.3 % Total Oxygen Concentration 17.8 % Lactic Acid (Blood Gas) 3.7 MMOL/L Blood Gas Temperature 37.0 Oxygen Delivery Method (LAB) VENT Blood Gas Vent Mode SIMV Blood Gas Vent Rate 15 FiO2 0.75 % Blood Gas Tidal Volume 450 ML Blood Gas PEEP 5.0 CMH2O Blood Gas Pressure Support 10 CMH2O Bicarbonate 18.7 mmol/L Sodium Level 142 mmol/L Potassium Level 3.6 mmol/L Chloride Level 105.0 mmol/L Carbon Dioxide Level 21.1 mmol/L Anion Gap 19.5 Blood Urea Nitrogen 19 mg/dL Creatinine 1.41 mg/dL Estimated GFR () 45.0 BUN/Creatinine Ratio 13.0 Glucose Level 245 mg/dL Calcium Level 9.4 mg/dL Total Bilirubin 0.2 mg/dL Aspartate Amino Transf (AST/SGOT) 15 U/L Alanine Aminotransferase (ALT/SGPT) 10 U/L Alkaline Phosphatase 158 U/L Total Creatine Kinase 59 U/L Troponin I 0.76 ng/mL Total Protein 7.3 g/dL Albumin 3.1 g/dL Globulin 4.2 White Blood Count 9.0 10^3/uL Red Blood Count 4.17 10^6/uL Hemoglobin 12.4 g/dL Hematocrit 37.6 % Mean Corpuscular Volume 90.2 fL Mean Corpuscular Hemoglobin 29.7 pg Mean Corpuscular Hemoglobin Concent 33.0 g/dL Red Cell Distribution Width 14.0 % Platelet Count 303 10^3/uL Mean Platelet Volume 10.9 fL Neutrophils (%) (Auto) 46.5 % Lymphocytes (%) (Auto) 38.2 % Monocytes (%) (Auto) 10.0 % Neutrophils # (Auto) 4.2 10^3/uL Lymphocytes # (Auto) 3.4 10^3/uL Monocytes # (Auto) 0.9 10^3/uL Absolute Immature Granulocyte (auto 0.06 10^3 u/L Eosinophils % 4.0 % Basophils % 0.6 % Basophils # 0.1 10^3/uL Eosinophil Count 0.4 10^3/uL Percent Immature Gran (Cell Imm) 0.70 % Urine Collection Type CCMS Urine Color YELLOW Urine Appearance CLOUDY Urine Bilirubin NEGATIVE MG/DL Urine Ketones NEGATIVE Urine Specific [place] 1.025 Urine pH 5 Urine Protein 500 mg/dL Urine Urobilinogen NORMAL Urine Nitrate NEGATIVE Urine Leukocyte Esterase NEGATIVE Urine Blood 10 TR Urine RBC NONE SEEN RBC/HPF Urine WBC 5-10 WBC/HPF Urine Squamous Epithelial Cells MODERATE #/HPF Urine Amorphous Sediment LARGE Urine Bacteria FEW Urine Other MUCUS 1+ #/HPF Urine Glucose NORMAL Test 01/25/19 04:30 01/25/19 08:00 01/25/19 13:10 01/25/19 13:35 Blood Gas Sample Site LEFT BRACHIAL ARTRY LEFT BRACHIAL ARTRY Blood Gas pH 7.349 7.331 Blood Gas PCO2 32.0 mmHg 35.6 mmHg Blood Gas PO2 103.3 mmHg 107.4 mmHg Blood Gas HCO3 17.2 mmol/L 18.4 mmol/L Blood Gas Base Excess -7.4 mmol/L -6.8 mmol/L Jose Test N/A N/A Arterial Blood Oxygen Saturation 96.9 % 96.8 % Deoxyhemoglobin 3.0 % 3.2 % Carboxyhemoglobin 1.6 % 0.6 % Methemoglobin 0.3 % 0.3 % Total Hemoglobin 11.7 % 11.3 % Total Oxygen Concentration 15.8 % 15.4 % Lactic Acid (Blood Gas) 0.8 MMOL/L 1.2 MMOL/L Blood Gas Temperature 37.0 37 Oxygen Delivery Method (LAB) VENT Blood Gas Vent Mode SIMV SIMV Blood Gas Vent Rate 15 15 FiO2 0.45 % 45 % Blood Gas Tidal Volume 450 ML 450 ML Blood Gas PEEP 5.0 CMH2O 5 CMH2O Blood Gas Pressure Support 10 CMH2O 10 CMH2O Bicarbonate 18.2 mmol/L 19.5 mmol/L White Blood Count 10.6 10^3/uL Red Blood Count 3.98 10^6/uL Hemoglobin 11.8 g/dL Hematocrit 35.2 % Mean Corpuscular Volume 88.4 fL Mean Corpuscular Hemoglobin 29.6 pg Mean Corpuscular Hemoglobin Concent 33.5 g/dL Red Cell Distribution Width 14.2 % Platelet Count 242 10^3/uL Mean Platelet Volume 11.1 fL Neutrophils (%) (Auto) 90.9 % Lymphocytes (%) (Auto) 6.2 % Monocytes (%) (Auto) 1.7 % Neutrophils # (Auto) 9.7 10^3/uL Lymphocytes # (Auto) 0.7 10^3/uL Monocytes # (Auto) 0.2 10^3/uL Absolute Immature Granulocyte (auto 0.03 10^3 u/L Eosinophils % 0.6 % Basophils % 0.3 % Basophils # 0.0 10^3/uL Eosinophil Count 0.1 10^3/uL Troponin I 1.27 ng/mL Pro-B-Type Natriuretic Peptide 51929 pg/mL Percent Immature Gran (Cell Imm) 0.30 % Differential Total Cells Counted 100 #CELLS Segmented Neutrophils 92 % Band Neutrophils 1 % Lymphocytes 7 % Platelet Morphology NORMAL Poikilocytosis 1+ Anisocytosis 1+ Test 01/25/19 18:50 01/26/19 01:31 01/26/19 04:50 01/26/19 04:58 Troponin I 0.90 ng/mL Vancomycin Level Trough 22.8 ug/mL Blood Gas Sample Site RT BRACIAL ARTERY Blood Gas pH 7.386 Blood Gas PCO2 26.3 mmHg Blood Gas PO2 73.0 mmHg Blood Gas HCO3 15.4 mmol/L Blood Gas Base Excess -8.2 mmol/L Jose Test N/A Arterial Blood Oxygen Saturation 93.5 % Deoxyhemoglobin 6.4 % Carboxyhemoglobin 1.1 % Methemoglobin 0.5 % Total Hemoglobin 11.0 % Total Oxygen Concentration 14.3 % Lactic Acid (Blood Gas) 1.9 MMOL/L Blood Gas Temperature 37.0 Oxygen Delivery Method (LAB) NASAL CANNULA FiO2 0.32 % Bicarbonate 16.2 mmol/L White Blood Count 10.8 10^3/uL Red Blood Count 3.42 10^6/uL Hemoglobin 10.3 g/dL Hematocrit 30.7 % Mean Corpuscular Volume 89.8 fL Mean Corpuscular Hemoglobin 30.1 pg Mean Corpuscular Hemoglobin Concent 33.6 g/dL Red Cell Distribution Width 14.2 % Platelet Count 225 10^3/uL Mean Platelet Volume 11.1 fL Neutrophils (%) (Auto) 89.8 % Lymphocytes (%) (Auto) 6.2 % Monocytes (%) (Auto) 3.8 % Neutrophils # (Auto) 9.7 10^3/uL Lymphocytes # (Auto) 0.7 10^3/uL Monocytes # (Auto) 0.4 10^3/uL Absolute Immature Granulocyte (auto 0.02 10^3 u/L Eosinophils % 0.0 % Basophils % 0.0 % Basophils # 0.0 10^3/uL Eosinophil Count 0.0 10^3/uL Sodium Level 139 mmol/L Potassium Level 3.4 mmol/L Chloride Level 108.0 mmol/L Carbon Dioxide Level 18.9 mmol/L Anion Gap 15.5 Blood Urea Nitrogen 21 mg/dL Creatinine 1.43 mg/dL Estimated GFR () 44.3 BUN/Creatinine Ratio 14.0 Glucose Level 143 mg/dL Hemoglobin A1c 5.8 % Calcium Level 9.2 mg/dL Total Bilirubin 0.3 mg/dL Aspartate Amino Transf (AST/SGOT) 19 U/L Alanine Aminotransferase (ALT/SGPT) 11 U/L Alkaline Phosphatase 110 U/L Total Protein 6.2 g/dL Albumin 2.7 g/dL Globulin 3.5 Triglycerides Level 64 mg/dL Cholesterol Level 223 mg/dL LDL Cholesterol, Calculated 163.2 VLDL Cholesterol 12.8 HDL Cholesterol 47 mg/dL Cholesterol Ratio (LDL/HDL) 4.543569 Percent Immature Gran (Cell Imm) 0.20 % Test 01/26/19 05:32 Differential Total Cells Counted 100 #CELLS Segmented Neutrophils 84 % Lymphocytes 14 % Monocytes 2 % Current Medications Medications (Trade) Dose Ordered Sig/Jacques PRN Reason Start Time Stop Time Status Last Admin Acetaminophen (Tylenol) 1,000 mg Q6HR PRN PAIN 01/26/19 00:30 02/25/19 00:29 01/26/19 00:33 Albuterol/ Ipratropium (Duoneb 0.5 Mg-3 Mg/3 ml Soln) 3 ml RTQ4 01/25/19 05:00 02/24/19 04:59 01/26/19 05:37 Aspirin (Aspirin) 81 mg DAILY 01/25/19 13:00 02/24/19 12:59 01/25/19 13:00 Azithromycin 500 mg/Sodium Chloride 250 ml @ 175 mls/hr Q24HRS 01/26/19 08:00 02/25/19 07:59 UNV Clopidogrel Bisulfate (Plavix) 75 mg DAILY 01/26/19 09:00 02/25/19 08:59 Dextrose (Dextrose 50%-Water Syringe) 25 ml STAT PRN HYPOGLYCEMIA 01/25/19 10:00 02/24/19 09:59 Enoxaparin Sodium (Lovenox) 40 mg DAILY 01/25/19 09:00 02/24/19 08:59 01/25/19 09:00 Hydralazine HCl (Apresoline) 10 mg Q4HR PRN HYPERTENSION 01/25/19 12:30 02/24/19 12:29 01/25/19 23:13 Ibuprofen (Motrin) 800 mg Q6H PRN PAIN 01/25/19 23:30 02/24/19 23:29 01/26/19 00:10 Insulin Glargine (Lantus) 20 unit HS 01/25/19 10:00 02/24/19 09:59 Future Hold 01/25/19 09:54 Insulin Human Regular (Humulin R) Give 30 minutes before meal ACHS 01/25/19 21:00 02/24/19 20:59 01/25/19 21:00 Levetiracetam (Keppra) 500 mg BID 01/25/19 12:31 02/24/19 12:30 01/25/19 21:05 Methylprednisolone Sodium Succinate (Solu-Medrol) 60 mg Q6 01/25/19 09:30 02/24/19 09:29 01/26/19 05:59 Morphine Sulfate (Duramorph) 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 Q4H PRN PAIN 01/26/19 03:00 02/25/19 02:59 UNV 01/26/19 02:59 Nifedipine (Procardia) 30 mg BID 01/25/19 12:00 02/24/19 11:59 01/25/19 21:05 Pantoprazole Sodium (Protonix Iv) 40 mg DAILY 01/25/19 09:00 02/24/19 08:59 01/25/19 09:00 Piperacillin Sod/ Tazobactam Sod 3.375 gm/Sodium Chloride 100 ml @ 100 mls/hr Q6H 01/25/19 02:30 02/24/19 02:29 01/26/19 02:30 Potassium Chloride (Klor-Con 10) 20 meq DAILY24 01/25/19 12:00 02/24/19 11:59 01/25/19 12:00 Propofol (Diprivan) 1,000 mg PRN PRN SEDATION 01/25/19 03:00 02/24/19 02:59 01/25/19 07:07 Sertraline HCl (Zoloft) 100 mg DAILY 01/26/19 09:00 02/25/19 08:59 Simvastatin (Zocor) 40 mg HS 01/25/19 21:00 02/24/19 20:59 01/25/19 21:05 Sodium Chloride 1,000 ml @ 125 mls/hr Q8H 01/25/19 03:30 02/24/19 03:29 01/26/19 00:18 Sepsis Infection Criteria Pres: Documented Infection LEVEL 1 SEPSIS INFECTION CRITE: Flu-Pneumonia, Urinary Tract Infection LEVEL 2-SIRS (LIST ALL THAT AP: [id number] Cardiovascular Evidence: Not Assessed or None Hematologic Evidence: None/Not assessed Hepatic Evidence: None/Not assessed Metabolic Evidence: None/Not assessed Neurological Evidence: None/Not assessed Respiratory Evidence: Need for O2 to keep>90%, O2 SAT<90room air Renal Evidence: None/Not assessed O2 Sat by Pulse Oximetry: 96 Respiratory End-tidal CO2: 22 Oxygen Flow Rate: 3.00 Assessment/Plan Assessment/Plan Assessment/Plan Patient is a 68 F PMH of Seizure Disorder, CAD, COPD presenting with respiratory failure from CAP/COPD. Plan 1.) Acute Respiratory Failure: 2/2 to CAP/COPD s/p extubation. Patient improving, no resp distress. Cont O2 support. 2.) Retroperitoneal Hematoma: Cards managing. Hg Stable, dAPT restarted. Leukocytosis decreased. 3.) CAP - Cardiology restarted abx. 4.) Renal Failure - Cr/GFR improving. Continue gentle hydration. 5.) HTN: cont current regimen. 6. CAD/Elevated Troponins: s/p PCI w/ stent. Cont Statin/dAPT. Cards following. 7. PPx: PPI 8. DM: cont SSI to cover 9. Generalized weakness: PT eval ordered. Pending placement. MAGUI CONNER MD Jan 30, 2019 12:23
[2019-01-30] MEDS ORDERED: DUONEB 0.5 MG-3 MG/3 ML SOLN IH ONE (13:00)
[2019-01-30 13:28] VITALS: BP 132/72
--- NOTE | 2019-01-30 14:21 | NUR ---
DISCHARGE UPDATE CINTIA ARAMBULA WITH [facility] PHONED TO REPORT PATIENT HAS BEEN APPROVED TO GO TO FACILITY FOR SKILLED THERAPY. CINTIA IS ARRANGING A [employer] TIME FOR SATURDAY, THE PLANNED DISCHARGED DATE.
[2019-01-30 16:18] VITALS: BP 128/70
--- NOTE | 2019-01-30 17:15 | PNH ---
DATE: 01/29/2019 SUBJECTIVE: The patient had volume overload and was given Lasix 40 mg IV and morphine and nitro this morning by ____ and she improved. Her blood pressure was extremely high. She stabilized. Her hematoma is contained in the right groin. OBJECTIVE: VITAL SIGNS: Stable with a pulse of 70, another blood pressure of 130/60, respiration 18, 97 saturation. Intake, output shows that she had almost 2475 mL out through the day and yesterday it was 3400. She was still in positive balance, but now she had aggressive diuresis after the Lasix. NECK: No JVD was discernible. LUNGS: Few rales bilaterally. HEART: Sounds normal. LABORATORY DATA: White count is 15.8 and 11.5 hemoglobin and her chemistries have improved with the potassium, which was down to 2.8 is up to 4.3, bicarbonate is 24, anion gap is 15, BUN is down to 20, creatinine is 1.2. Marked improvement in renal function, glucose is 239 and low albumin of 3.1. She is now on Entresto 24/ one tablet twice a day, Coreg has been increased to 12.5 mg twice a day, and she is on hydralazine 25 mg 3 times a day, back on Brilinta, aspirin post circumflex stenting, and the sputum showed normal upper respiratory roel. Her abdomen less swollen today. Her appetite is good. She had good BM. Hemoglobin is stabilized. Chest x-ray as of today showed increased bilateral bibasilar infiltrates, pleural effusion. At the present time, we will start her on Rocephin, transferred to the floor. Continue same optimized medical therapy. Laxmichand MD Shanna DR: GLYNN/sania JOB# [id number]
[2019-01-30] MEDS ORDERED: LANOLIN HYDROUS TP ONE (18:50)
[2019-01-30] MEDS: TYLENOL PO PRN (18:59)
[2019-01-30 20:21] VITALS: BP 129/71
[2019-01-30] MEDS: LIPITOR PO SCH (21:04)
[2019-01-30] MEDS ORDERED: CARV12.5 PO (23:37)
[2019-01-30] MEDS ORDERED: HYDR-3194 PO (23:37)
[2019-01-30] MEDS ORDERED: PANT40TA3 PO (23:37)
[2019-01-30] MEDS ORDERED: TICA90TA PO (23:37)
[2019-01-30] MEDS ORDERED: NITR0.4T SL (23:37)
[2019-01-30] MEDS ORDERED: ATOR40TA PO (23:37)
[2019-01-30] MEDS ORDERED: ASPI-655 PO (23:37)
[2019-01-30] MEDS ORDERED: INSU100V8 SQ (23:37)
[2019-01-30] MEDS ORDERED: SACU1TAB PO (23:37)
[2019-01-31 00:59] VITALS: BP 130/73
[2019-01-31] MEDS: NORCO 5MG PO PRN ×2 (03:24→16:58)
[2019-01-31 05:43] LABS: BASOPHIL % 0.1 % (0.0-0.2); EOSINOPHIL # 0.8 10^3/uL (0.0-0.2); EOSINOPHIL % 6.1 % (0.0-5.0); HEMOGLOBIN 9.6 g/dL (12.0-15.0); LYMPHOCYTES # 2.1 10^3/uL (1.0-4.8); MEAN CELL HGB 29.7 pg (26-34); MEAN CELL HGB CONCENTRATION 32.8 g/dL (33-37); MEAN CORP VOLUME 90.7 fL (78-100); MEAN PLATELET VOLUME 12.1 fL (7.8-11.0); MONOCYTES # 1.7 10^3/uL (0.3-0.8); NEUTROPHIL # 8.5 10^3/uL (1.8-7.7); NEUTROPHILS % 63.6 % (41.0-85.0); RED CELL DISTRIBUTION WIDTH 14.3 % (11.5-14.5); WHITE BLOOD CELL 13.3 10^3/uL (4.5-11.0)
[2019-01-31 05:48] VITALS: BP 158/87
[2019-01-31 06:19] LABS: CALCIUM 8.8 mg/dL (8.4-10.5)
[2019-01-31 08:00] VITALS: BP 165/74
[2019-01-31] MEDS: HUMALOG SQ SCH ×3 (08:00→16:43)
[2019-01-31] MEDS: PULMICORT IH SCH ×2 (08:17→20:16)
[2019-01-31] MEDS ORDERED: NS 1000 ML/KCL 40MEQ 1,000 ML IV ONE (08:31)
[2019-01-31] MEDS: KEPPRA PO SCH ×2 (08:38→21:02)
[2019-01-31] MEDS: ASPIRIN EC PO SCH (08:38)
[2019-01-31] MEDS: PROTONIX PO SCH (08:38)
[2019-01-31] MEDS: ENTRESTO 24 MG-26 MG TABLET PO SCH ×2 (08:38→21:02)
[2019-01-31] MEDS: ZOLOFT PO SCH (08:39)
[2019-01-31] MEDS: COREG PO SCH ×2 (08:39→21:02)
[2019-01-31] MEDS: APRESOLINE PO SCH ×3 (08:39→21:02)
[2019-01-31] MEDS: BRILINTA PO SCH ×2 (08:39→21:02)
[2019-01-31] MEDS: ROCEPHIN 1,000 MG in NS 100ML 100 ML IV SCH (08:45)
[2019-01-31] MEDS ORDERED: NS 250ML 250 ML IV ONE (08:45)
--- NOTE | 2019-01-31 10:13 | PRM.PN ---
Subjective Subjective Date: Jan 31, 2019 Time: 10:00 Subjective PT evaluated patient and she will go to SNF tomorrow. Labs reviewed, patient feels better. Hg continues to decrease. patient denies complaints. Patient History: Unknown 33 MOTHER 33 FATHER VTE VTE Risk Total Score: >5 VTE Risk Score VTE Risk: Score 0-1 = Low Risk (Aggressive mobilization; early ambulation; no VTE prophylaxis required) Score 2: Moderate Risk (Intermittent/Pneumatic Compression Device OR Lovenox/Heparin/Coumadin) Score 3-4: High Risk (Intermittent/Pneumatic Compression Device AND Lovenox/Heparin/Coumadin) Score > or =5: Highest Risk (Intermittent/Pneumatic Compression Device AND Lovenox/Heparin/Coumadin) Antico:Hep/LMWH/Coum/Xarelto: No Mechanical device ordered: Yes Reasons not ordering prophylax: At risk for falls Review of Systems Allergies: Coded Allergies: codeine (Verified Allergy, Unknown, 03/29/17) Scheduled Albuterol Sulfate (Ventolin Hfa), 18 GM IH Q6HR, (Reported) Aspirin (Aspirin Ec), 81 MG PO DAILY Atorvastatin 40MG (Lipitor 40MG), 40 MG PO HS Carvedilol 12.5MG (Coreg 12.MG), 12.5 MG PO BID Carvedilol 3.125MG (Coreg 3.125MG), 1 TAB PO BID, (Reported) Clopidogrel Bisulfate (Plavix), 1 TAB PO DAILY, (Reported) Hydralazine Hcl (Hydralazine Hcl), 25 MG PO TID Insulin Glargine,Hum.rec.anlog (Lantus), 20 UNIT SQ HS Levetiracetam (Keppra), 500 MG PO BID Montelukast Sodium (Montelukast Sodium), 1 TAB PO HS, (Reported) Nifedipine (Nifedipine Er), 90 MG PO DAILY24, (Reported) Omeprazole (Omeprazole), 40 MG PO DAILY24, (Reported) Pantoprazole Sodium (Protonix), 40 MG PO DAILY Potassium Chloride (Potassium Chloride), 20 MEQ PO DAILY24 Sacubitril/Valsartan (Entresto 24 mg-26 mg Tablet), 1 EACH PO BID Sertraline Hcl (Zoloft), 1 TAB PO DAILY, (Reported) Simvastatin (Simvastatin), 1 TAB PO HS Ticagrelor (Brilinta), 90 MG PO BID Trazodone Hcl (Trazodone Hcl), 1.5 TAB PO HS, (Reported) Umeclidinium Brm/Vilanterol Tr (Anoro Ellipta 62.5-25 Mcg INH), 1 EACH IH DAILY24, (Reported) Scheduled PRN Nitroglycerin (Nitrostat), 0.4 MG SL PRN PRN for CHEST PAIN Objective Vitals and I/O Vital Sign - Last 24 Hours 01/25/19 01/25/19 01/25/19 01/25/19 08:00 08:05 08:15 08:30 Temp 36.7 36.7 36.7 98.1 98.1 98.1 Pulse 58 57 62 67 Resp 16 B/P (MAP) 134/64 (87) 135/68 (90) 173/92 (119) Pulse Ox 99 99 99 99 FiO2 45 01/25/19 01/25/19 01/25/19 01/25/19 08:45 09:00 09:05 09:05 Temp 36.7 36.8 98.1 98.2 Pulse 56 56 58 55 Resp 15 B/P (MAP) 167/72 (103) 131/68 (89) Pulse Ox 100 99 97 99 01/25/19 01/25/19 01/25/19 01/25/19 09:15 09:30 09:45 10:00 Temp 36.8 36.8 36.8 36.8 98.2 98.2 98.2 98.2 Pulse 57 62 55 57 Resp 16 B/P (MAP) 141/70 (93) 136/59 (84) 145/64 (91) 133/67 (89) Pulse Ox 99 98 97 95 01/25/19 01/25/19 01/25/19 01/25/19 10:10 10:15 10:30 10:42 Temp 36.7 36.7 98.1 98.1 Pulse 55 56 58 Resp 16 B/P (MAP) 152/72 (98) 158/69 (98) 168/76 Pulse Ox 98 96 98 FiO2 30 01/25/19 01/25/19 01/25/19 01/25/19 10:45 11:00 11:15 11:30 Temp 36.7 36.7 36.7 36.8 98.1 98.1 98.1 98.2 Pulse 54 57 60 65 Resp 15 16 15 15 B/P (MAP) 162/64 (96) 168/76 (106) 172/74 (106) 178/79 (112) Pulse Ox 95 97 97 96 01/25/19 01/25/19 01/25/19 01/25/19 11:45 12:00 12:00 12:00 Temp 36.8 36.8 98.2 98.2 Pulse 66 56 66 Resp 16 18 B/P (MAP) 153/85 (107) 166/76 (106) Pulse Ox 96 99 96 O2 Delivery Mechanical Ventilator FiO2 30 01/25/19 01/25/19 01/25/19 01/25/19 12:15 12:30 12:40 12:40 Temp 36.9 36.9 98.4 98.4 Pulse 67 74 72 72 B/P (MAP) 175/79 (111) 174/84 (114) 180/83 Pulse Ox 95 95 94 01/25/19 01/25/19 01/25/19 01/25/19 12:40 12:40 12:45 13:00 Temp 36.9 98.4 Pulse 70 70 74 68 Resp 20 12 24 B/P (MAP) 176/84 (114) Pulse Ox 94 94 95 95 FiO2 30 28 01/25/19 01/25/19 01/25/19 01/25/19 13:00 13:15 13:16 13:20 Temp 37.0 37.1 37.1 98.6 98.8 98.8 Pulse 67 73 74 72 Resp 16 B/P (MAP) 180/83 (115) 167/71 (103) Pulse Ox 94 95 96 95 FiO2 28 01/25/19 01/25/19 01/25/19 01/25/19 13:30 13:45 13:53 14:00 Temp 37.2 37.3 37.3 37.3 99.0 99.1 99.1 99.1 Pulse 65 70 68 64 B/P (MAP) 148/60 (89) 139/101 (114) 147/64 (91) 149/69 (95) Pulse Ox 94 95 95 94 01/25/19 01/25/19 01/25/19 01/25/19 14:15 14:30 14:45 15:00 Temp 37.4 37.4 37.3 37.3 99.3 99.3 99.1 99.1 Pulse 66 77 76 75 Resp 20 19 B/P (MAP) 147/67 (93) 125/60 (81) 119/60 (79) 124/64 (84) Pulse Ox 95 94 95 94 01/25/19 01/25/19 01/25/19 01/25/19 15:15 15:30 15:45 16:00 Temp 37.3 37.3 37.3 37.3 99.1 99.1 99.1 99.1 Pulse 83 79 77 78 Resp 18 B/P (MAP) 126/61 (82) 118/56 (76) 127/63 (84) 99/53 (68) Pulse Ox 94 93 95 95 01/25/19 01/25/19 01/25/19 01/25/19 16:00 16:15 16:30 16:45 Temp 37.3 37.3 37.3 99.1 99.1 99.1 Pulse 81 76 77 Resp 17 13 B/P (MAP) 132/63 (86) 147/59 (88) 143/86 (105) Pulse Ox 95 95 95 O2 Delivery Nasal Cannula O2 Flow Rate 2.00 01/25/19 01/25/19 01/25/19 01/25/19 17:00 17:06 17:15 17:30 Temp 37.3 37.3 37.3 37.3 99.1 99.1 99.1 99.1 Pulse 75 76 79 80 Resp 10 13 19 17 B/P (MAP) 146/115 (125) 142/72 (95) 146/75 (98) 128/66 (86) Pulse Ox 97 93 95 96 01/25/19 01/25/19 01/25/19 01/25/19 17:45 18:00 18:10 18:10 Temp 37.4 37.4 99.3 99.3 Pulse 80 80 75 80 Resp 16 16 B/P (MAP) 146/63 (90) 148/62 (90) Pulse Ox 95 96 97 98 01/25/19 01/25/19 01/25/19 01/25/19 18:15 18:30 19:00 19:00 Temp 37.3 37.3 37.3 99.1 99.1 99.1 Pulse 80 79 77 Resp 17 23 29 B/P (MAP) 151/65 (93) 165/73 (103) 154/112 (126) Pulse Ox 96 96 96 O2 Delivery Nasal Cannula O2 Flow Rate 2.00 01/25/19 01/25/19 01/25/19 01/25/19 19:15 19:30 19:45 20:00 Temp 37.2 37.2 37.3 99.0 99.0 99.1 Pulse 82 76 77 79 Resp 22 11 11 18 B/P (MAP) 146/76 (99) 147/56 (86) 159/78 (105) Pulse Ox 96 96 96 98 O2 Delivery Nasal Cannula O2 Flow Rate 2.00 FiO2 28 01/25/19 01/25/19 01/25/19 01/25/19 20:00 20:00 20:15 20:15 Temp 37.3 37.2 99.1 99.0 Pulse 79 80 81 80 Resp 18 18 18 12 B/P (MAP) 161/78 (105) Pulse Ox 98 96 99 98 01/25/19 01/25/19 01/25/19 01/25/19 20:30 20:45 21:00 21:05 Pulse 83 82 89 98 Resp 11 23 15 B/P (MAP) 165/77 (106) 142/65 (90) 153/62 Pulse Ox 99 98 98 01/25/19 01/25/19 01/25/19 01/25/19 21:15 21:30 21:45 22:00 Pulse 91 95 97 100 Resp 18 18 40 15 B/P (MAP) 153/62 (92) 173/97 (122) Pulse Ox 98 99 97 95 01/25/19 01/25/19 01/25/19 01/25/19 22:15 22:30 22:45 23:00 Pulse 96 95 91 96 Resp 14 20 15 19 B/P (MAP) 162/83 (109) 150/79 (102) Pulse Ox 98 97 99 97 01/25/19 01/25/19 01/25/19 01/25/19 23:00 23:13 23:15 23:30 Pulse 96 93 101 Resp 21 20 B/P (MAP) 160/74 160/74 (102) Pulse Ox 98 97 O2 Delivery Nasal Cannula O2 Flow Rate 2.00 01/25/19 01/26/19 01/26/19 01/26/19 23:45 00:00 00:15 00:45 Pulse 92 95 101 110 Resp 14 20 12 12 B/P (MAP) 138/61 (86) Pulse Ox 96 97 96 93 01/26/19 01/26/19 01/26/19 01/26/19 01:00 01:10 01:15 01:21 Pulse 115 107 106 102 Resp 16 28 24 21 B/P (MAP) 171/96 (121) 159/86 (110) Pulse Ox 93 88 91 89 01/26/19 01/26/19 01/26/19 01/26/19 01:30 01:30 01:45 02:00 Pulse 114 118 116 122 Resp 18 30 19 B/P (MAP) 176/94 (121) 171/96 Pulse Ox 93 88 92 01/26/19 01/26/19 01/26/19 01/26/19 02:00 02:15 02:30 02:45 Pulse 117 123 118 109 Resp 14 16 17 23 B/P (MAP) 145/52 (83) 119/62 (81) Pulse Ox 92 91 89 90 01/26/19 01/26/19 01/26/19 01/26/19 03:00 03:15 03:30 03:45 Pulse 116 117 111 112 Resp 24 20 17 11 B/P (MAP) 137/70 (92) 146/76 (99) 124/59 (80) 126/59 (81) Pulse Ox 88 86 86 86 01/26/19 01/26/19 01/26/19 01/26/19 04:00 04:00 04:15 04:30 Temp 99.4 99.4 Pulse 107 102 102 Resp 17 16 15 B/P (MAP) 123/50 (74) 116/52 (73) 120/59 (79) Pulse Ox 86 89 88 O2 Delivery Nasal Cannula O2 Flow Rate 2.00 01/26/19 01/26/19 01/26/19 01/26/19 04:45 04:45 05:00 05:00 Pulse 106 103 105 104 Resp 15 18 16 16 B/P (MAP) 125/59 (81) 119/49 (72) Pulse Ox 89 88 89 93 01/26/19 01/26/19 01/26/19 01/26/19 05:15 05:30 05:45 06:00 Pulse 105 102 89 89 Resp 16 19 17 14 B/P (MAP) 119/56 (77) 127/64 (85) 127/56 (79) 126/59 (81) Pulse Ox 92 89 91 92 Intake and Output 01/25/19 01/25/19 01/26/19 14:59 22:59 06:59 Intake Total 2244 ml Output Total 800 ml 400 ml Balance -800 ml 1844 ml General: Alert, Oriented X3, Cooperative, No acute distress HEENT: Atraumatic, PERRLA, EOMI, Mucous membr. moist/pink Neck: Supple, No JVD Lungs: Normal air movement, Other (improved aeration) Heart: Normal S1, Normal S2 Abdomen: Normal bowel sounds, Soft, Other (tenderness to palpation diffusely) Extremities: No clubbing, No cyanosis, Normal pulses, No tenderness/swelling Skin: No rashes, No breakdown, No significant lesion Neuro: Normal speech, Strength at 5/5 X4 ext, Normal tone, Sensation intact, Cranial nerves 3-12 NL Psych/Mental Status: Mental status NL, Mood NL All Results(Lab/Rad) Laboratory Tests Test 01/25/19 08:00 01/25/19 13:10 01/25/19 13:35 01/25/19 18:50 Blood Gas Sample Site LEFT BRACHIAL ARTRY Blood Gas pH 7.331 Blood Gas PCO2 35.6 mmHg Blood Gas PO2 107.4 mmHg Blood Gas HCO3 18.4 mmol/L Blood Gas Base Excess -6.8 mmol/L Jose Test N/A Arterial Blood Oxygen Saturation 96.8 % Deoxyhemoglobin 3.2 % Carboxyhemoglobin 0.6 % Methemoglobin 0.3 % Total Hemoglobin 11.3 % Total Oxygen Concentration 15.4 % Lactic Acid (Blood Gas) 1.2 MMOL/L Blood Gas Temperature 37 Blood Gas Vent Mode SIMV Blood Gas Vent Rate 15 FiO2 45 % Blood Gas Tidal Volume 450 ML Blood Gas PEEP 5 CMH2O Blood Gas Pressure Support 10 CMH2O Bicarbonate 19.5 mmol/L White Blood Count 10.6 10^3/uL Red Blood Count 3.98 10^6/uL Hemoglobin 11.8 g/dL Hematocrit 35.2 % Mean Corpuscular Volume 88.4 fL Mean Corpuscular Hemoglobin 29.6 pg Mean Corpuscular Hemoglobin Concent 33.5 g/dL Red Cell Distribution Width 14.2 % Platelet Count 242 10^3/uL Mean Platelet Volume 11.1 fL Neutrophils (%) (Auto) 90.9 % Lymphocytes (%) (Auto) 6.2 % Monocytes (%) (Auto) 1.7 % Neutrophils # (Auto) 9.7 10^3/uL Lymphocytes # (Auto) 0.7 10^3/uL Monocytes # (Auto) 0.2 10^3/uL Absolute Immature Granulocyte (auto 0.03 10^3 u/L Eosinophils % 0.6 % Basophils % 0.3 % Basophils # 0.0 10^3/uL Eosinophil Count 0.1 10^3/uL Troponin I 1.27 ng/mL 0.90 ng/mL Pro-B-Type Natriuretic Peptide 46223 pg/mL Percent Immature Gran (Cell Imm) 0.30 % Differential Total Cells Counted 100 #CELLS Segmented Neutrophils 92 % Band Neutrophils 1 % Lymphocytes 7 % Platelet Morphology NORMAL Poikilocytosis 1+ Anisocytosis 1+ Test 01/26/19 01:31 01/26/19 04:50 01/26/19 04:58 01/26/19 05:32 Vancomycin Level Trough 22.8 ug/mL Blood Gas Sample Site RT BRACIAL ARTERY Blood Gas pH 7.386 Blood Gas PCO2 26.3 mmHg Blood Gas PO2 73.0 mmHg Blood Gas HCO3 15.4 mmol/L Blood Gas Base Excess -8.2 mmol/L Jose Test N/A Arterial Blood Oxygen Saturation 93.5 % Deoxyhemoglobin 6.4 % Carboxyhemoglobin 1.1 % Methemoglobin 0.5 % Total Hemoglobin 11.0 % Total Oxygen Concentration 14.3 % Lactic Acid (Blood Gas) 1.9 MMOL/L Blood Gas Temperature 37.0 Oxygen Delivery Method (LAB) NASAL CANNULA FiO2 0.32 % Bicarbonate 16.2 mmol/L White Blood Count 10.8 10^3/uL Red Blood Count 3.42 10^6/uL Hemoglobin 10.3 g/dL Hematocrit 30.7 % Mean Corpuscular Volume 89.8 fL Mean Corpuscular Hemoglobin 30.1 pg Mean Corpuscular Hemoglobin Concent 33.6 g/dL Red Cell Distribution Width 14.2 % Platelet Count 225 10^3/uL Mean Platelet Volume 11.1 fL Neutrophils (%) (Auto) 89.8 % Lymphocytes (%) (Auto) 6.2 % Monocytes (%) (Auto) 3.8 % Neutrophils # (Auto) 9.7 10^3/uL Lymphocytes # (Auto) 0.7 10^3/uL Monocytes # (Auto) 0.4 10^3/uL Absolute Immature Granulocyte (auto 0.02 10^3 u/L Eosinophils % 0.0 % Basophils % 0.0 % Basophils # 0.0 10^3/uL Eosinophil Count 0.0 10^3/uL Sodium Level 139 mmol/L Potassium Level 3.4 mmol/L Chloride Level 108.0 mmol/L Carbon Dioxide Level 18.9 mmol/L Anion Gap 15.5 Blood Urea Nitrogen 21 mg/dL Creatinine 1.43 mg/dL Estimated GFR () 44.3 BUN/Creatinine Ratio 14.0 Glucose Level 143 mg/dL Hemoglobin A1c 5.8 % Calcium Level 9.2 mg/dL Total Bilirubin 0.3 mg/dL Aspartate Amino Transf (AST/SGOT) 19 U/L Alanine Aminotransferase (ALT/SGPT) 11 U/L Alkaline Phosphatase 110 U/L Total Protein 6.2 g/dL Albumin 2.7 g/dL Globulin 3.5 Triglycerides Level 64 mg/dL Cholesterol Level 223 mg/dL LDL Cholesterol, Calculated 163.2 VLDL Cholesterol 12.8 HDL Cholesterol 47 mg/dL Cholesterol Ratio (LDL/HDL) 4.000333 Percent Immature Gran (Cell Imm) 0.20 % Differential Total Cells Counted 100 #CELLS Segmented Neutrophils 84 % Lymphocytes 14 % Monocytes 2 % Current Medications Medications (Trade) Dose Ordered Sig/Jacques Route PRN Reason Start Time Stop Time Status Last Admin Dose Admin Propofol 100 ml @ ud STK-MED ONCE IV 01/25/19 01:10 01/25/19 01:12 DC Propofol (Diprivan) 200 mg STK-MED ONCE IV 01/25/19 01:10 01/25/19 01:12 DC Sodium Chloride 1,000 ml @ 0 mls/hr Q0M STAT IV 01/25/19 01:31 01/25/19 01:34 DC 01/25/19 01:48 Albuterol/ Ipratropium (Duoneb 0.5 Mg-3 Mg/3 ml Soln) 3 ml STK-MED ONCE IH 01/25/19 01:35 01/25/19 01:36 DC Albuterol Sulfate (Ventolin) 2.5 mg STK-MED ONCE IH 01/25/19 01:35 01/25/19 01:36 DC Albuterol/ Ipratropium (Duoneb 0.5 Mg-3 Mg/3 ml Soln) 3 ml STAT STAT IH 01/25/19 01:58 01/25/19 02:00 DC 01/25/19 02:07 Albuterol Sulfate (Ventolin) 2.5 mg STAT STAT IH 01/25/19 01:58 01/25/19 02:00 DC 01/25/19 02:07 Vancomycin HCl 900 mg/Sodium Chloride 100 ml @ 100 mls/hr Q8H IV 01/25/19 02:30 01/25/19 08:38 DC 01/25/19 03:09 Piperacillin Sod/ Tazobactam Sod 3.375 gm/Sodium Chloride 100 ml @ 100 mls/hr Q6H IV 01/25/19 02:30 02/24/19 02:29 01/26/19 02:30 Albuterol/ Ipratropium (Duoneb 0.5 Mg-3 Mg/3 ml Soln) 3 ml RTQ4 IH 01/25/19 05:00 02/24/19 04:59 01/26/19 05:37 Enoxaparin Sodium (Lovenox) 40 mg DAILY SQ 01/25/19 09:00 02/24/19 08:59 01/25/19 09:00 Pantoprazole Sodium (Protonix Iv) 40 mg DAILY IV 01/25/19 09:00 02/24/19 08:59 01/25/19 09:00 Propofol (Diprivan) 1,000 mg PRN PRN IV SEDATION 01/25/19 03:00 02/24/19 02:59 01/25/19 07:07 Sodium Chloride 1,000 ml @ 125 mls/hr Q8H IV 01/25/19 03:30 02/24/19 03:29 01/26/19 00:18 Sodium Chloride 100 ml @ STK-MED ONCE IV 01/25/19 03:11 01/25/19 03:12 DC Sodium Chloride 2,000 ml @ STK-MED ONCE .ROUTE 01/25/19 03:11 01/25/19 03:12 DC Sodium Chloride 250 ml @ ud STK-MED ONCE IV 01/25/19 03:11 01/25/19 03:12 DC Vancomycin HCl 1 ml @ ud STK-MED ONCE .ROUTE 01/25/19 03:11 01/25/19 03:13 DC Piperacillin Sod/ Tazobactam Sod (Zosyn 3.375 Gram Vial) 3.375 gm STK-MED ONCE IV 01/25/19 03:12 01/25/19 03:13 DC Sterile Water (Water) 1,000 ml STK-MED ONCE .ROUTE 01/25/19 06:54 01/25/19 06:55 DC Sodium Chloride 100 ml @ ud STK-MED ONCE IV 01/25/19 07:31 01/25/19 07:32 DC Piperacillin Sod/ Tazobactam Sod (Zosyn 3.375 Gram Vial) 3.375 gm STK-MED ONCE IV 01/25/19 07:31 01/25/19 07:32 DC Pantoprazole Sodium (Protonix Iv) 40 mg STK-MED ONCE IV 01/25/19 07:35 01/25/19 07:36 DC Enoxaparin Sodium (Lovenox) 40 mg STK-MED ONCE SQ 01/25/19 07:35 01/25/19 07:37 DC Vancomycin HCl 0.9 gm/Sodium Chloride 250 ml @ 175 mls/hr Q8H IV 01/25/19 10:00 01/26/19 07:49 DC 01/25/19 18:00 Sodium Chloride 500 ml @ ud STK-MED ONCE IV 01/25/19 09:05 01/25/19 09:06 DC Sodium Chloride 500 ml @ 500 mls/hr Q1H ONCE IV 01/25/19 09:30 01/25/19 10:29 DC 01/25/19 09:09 Methylprednisolone Sodium Succinate (Solu-Medrol) 60 mg Q6 IV 01/25/19 09:30 02/24/19 09:29 01/26/19 05:59 Insulin Human Regular (Humulin R) Give 30 minutes before meal ACHS SQ 01/25/19 11:30 01/25/19 20:45 DC Dextrose (Dextrose 50%-Water Syringe) 25 ml STAT PRN IV [id number] 01/25/19 10:00 02/24/19 09:59 Insulin Glargine (Lantus) 20 unit HS SQ 01/25/19 10:00 02/24/19 09:59 Future Hold 01/25/19 09:54 Furosemide (Lasix) 20 mg STK-MED ONCE .ROUTE 01/25/19 10:30 01/25/19 10:31 DC Furosemide (Lasix) 20 mg OT ONCE IV 01/25/19 11:00 01/25/19 11:01 DC 01/25/19 10:42 Carvedilol (Coreg) 3.125 mg BID PO 01/25/19 21:00 01/26/19 07:49 DC 01/25/19 21:05 Clopidogrel Bisulfate (Plavix) 75 mg DAILY PO 01/26/19 09:00 02/25/19 08:59 Levetiracetam (Keppra) 500 mg BID PO 01/25/19 12:31 02/24/19 12:30 01/25/19 21:05 Nifedipine (Procardia) 30 mg BID PO 01/25/19 12:00 02/24/19 11:59 01/25/19 21:05 Pantoprazole Sodium (Protonix) 40 mg DAILY PO 01/25/19 12:28 01/25/19 12:55 DC Potassium Chloride (Klor-Con 10) 20 meq DAILY24 PO 01/25/19 12:00 02/24/19 11:59 01/25/19 12:00 Sertraline HCl (Zoloft) 100 mg DAILY PO 01/26/19 09:00 02/25/19 08:59 Simvastatin (Zocor) 40 mg HS PO 01/25/19 21:00 02/24/19 20:59 01/25/19 21:05 Hydralazine HCl (Apresoline) 10 mg Q4HR PRN IV HYPERTENSION 01/25/19 12:30 02/24/19 12:29 01/25/19 23:13 Hydralazine HCl (Apresoline) 10 mg STK-MED ONCE .ROUTE 01/25/19 12:29 01/25/19 12:31 DC Hydralazine HCl (Apresoline) 20 mg STK-MED ONCE .ROUTE 01/25/19 12:31 01/25/19 12:32 DC Aspirin (Aspirin) 81 mg DAILY PO 01/25/19 13:00 02/24/19 12:59 01/25/19 13:00 Insulin Human Regular (Humulin R) Give 30 minutes before meal ACHS SQ 01/25/19 21:00 02/24/19 20:59 01/25/19 21:00 Ibuprofen (Motrin) 800 mg Q6H PRN PO PAIN 01/25/19 23:30 02/24/19 23:29 01/26/19 00:10 Acetaminophen (Tylenol) 1,000 mg Q6HR PRN PO PAIN 01/26/19 00:30 02/25/19 00:29 01/26/19 00:33 Lorazepam (Ativan) 2 mg STK-MED ONCE .ROUTE 01/26/19 01:43 01/26/19 01:45 DC Lorazepam (Ativan) 1 mg STAT STAT IV 01/26/19 01:45 01/26/19 01:46 DC 01/26/19 01:45 Metoprolol Tartrate (Lopresser) 5 mg STK-MED ONCE .ROUTE 01/26/19 01:58 01/26/19 02:00 DC Metoprolol Tartrate (Lopresser) 5 mg STAT STAT IVP 01/26/19 02:00 01/26/19 02:13 DC 01/26/19 02:00 Morphine Sulfate (Morphine Sulfate) 4 mg STK-MED ONCE .ROUTE 01/26/19 02:48 01/26/19 02:49 DC Morphine Sulfate (Duramorph) 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 Q4H PRN IV PAIN 01/26/19 03:00 02/25/19 02:59 UNV 01/26/19 02:59 Azithromycin 500 mg/Sodium Chloride 250 ml @ 175 mls/hr Q24HRS IV 01/26/19 08:00 02/25/19 07:59 UNV Course Sepsis Screening Results: Posi: POSITIVE Sepsis Qualifier/Stage: SEPSIS RISK Duration or Total Time Spent w: 90 Vitals & review Data Vital Sign - Last 24 Hours 01/25/19 01/25/19 01/25/19 01/25/19 08:00 08:05 08:15 08:30 Temp 36.7 36.7 36.7 98.1 98.1 98.1 Pulse 58 57 62 67 Resp 15 15 17 16 B/P (MAP) 134/64 (87) 135/68 (90) 173/92 (119) Pulse Ox 99 99 99 99 FiO2 45 01/25/19 01/25/19 01/25/19 01/25/19 08:45 09:00 09:05 09:05 Temp 36.7 36.8 98.1 98.2 Pulse 56 56 58 55 Resp 15 15 15 15 B/P (MAP) 167/72 (103) 131/68 (89) Pulse Ox 100 99 97 99 01/25/19 01/25/19 01/25/19 01/25/19 09:15 09:30 09:45 10:00 Temp 36.8 36.8 36.8 36.8 98.2 98.2 98.2 98.2 Pulse 57 62 55 57 Resp 16 15 16 B/P (MAP) 141/70 (93) 136/59 (84) 145/64 (91) 133/67 (89) Pulse Ox 99 98 97 95 01/25/19 01/25/19 01/25/19 01/25/19 10:10 10:15 10:30 10:42 Temp 36.7 36.7 98.1 98.1 Pulse 55 56 58 Resp 15 17 16 B/P (MAP) 152/72 (98) 158/69 (98) 168/76 Pulse Ox 98 96 98 FiO2 30 01/25/19 01/25/19 01/25/19 01/25/19 10:45 11:00 11:15 11:30 Temp 36.7 36.7 36.7 36.8 98.1 98.1 98.1 98.2 Pulse 54 57 60 65 Resp 15 16 15 15 B/P (MAP) 162/64 (96) 168/76 (106) 172/74 (106) 178/79 (112) Pulse Ox 95 97 97 96 01/25/19 01/25/19 01/25/19 01/25/19 11:45 12:00 12:00 12:00 Temp 36.8 36.8 98.2 98.2 Pulse 66 56 66 Resp 16 18 B/P (MAP) 153/85 (107) 166/76 (106) Pulse Ox 96 99 96 O2 Delivery Mechanical Ventilator FiO2 30 01/25/19 01/25/19 01/25/19 01/25/19 12:15 12:30 12:40 12:40 Temp 36.9 36.9 98.4 98.4 Pulse 67 74 72 72 B/P (MAP) 175/79 (111) 174/84 (114) 180/83 Pulse Ox 95 95 94 01/25/19 01/25/19 01/25/19 01/25/19 12:40 12:40 12:45 13:00 Temp 36.9 98.4 Pulse 70 70 74 68 Resp 20 12 24 B/P (MAP) 176/84 (114) Pulse Ox 94 94 95 95 FiO2 30 28 01/25/19 01/25/19 01/25/19 01/25/19 13:00 13:15 13:16 13:20 Temp 37.0 37.1 37.1 98.6 98.8 98.8 Pulse 67 73 74 72 Resp 16 B/P (MAP) 180/83 (115) 167/71 (103) Pulse Ox 94 95 96 95 FiO2 28 01/25/19 01/25/19 01/25/19 01/25/19 13:30 13:45 13:53 14:00 Temp 37.2 37.3 37.3 37.3 99.0 99.1 99.1 99.1 Pulse 65 70 68 64 B/P (MAP) 148/60 (89) 139/101 (114) 147/64 (91) 149/69 (95) Pulse Ox 94 95 95 94 01/25/19 01/25/19 01/25/19 01/25/19 14:15 14:30 14:45 15:00 Temp 37.4 37.4 37.3 37.3 99.3 99.3 99.1 99.1 Pulse 66 77 76 75 Resp 20 16 19 B/P (MAP) 147/67 (93) 125/60 (81) 119/60 (79) 124/64 (84) Pulse Ox 95 94 95 94 01/25/19 01/25/19 01/25/19 01/25/19 15:15 15:30 15:45 16:00 Temp 37.3 37.3 37.3 37.3 99.1 99.1 99.1 99.1 Pulse 83 79 77 78 Resp 19 19 25 18 B/P (MAP) 126/61 (82) 118/56 (76) 127/63 (84) 99/53 (68) Pulse Ox 94 93 95 95 01/25/19 01/25/19 01/25/19 01/25/19 16:00 16:15 16:30 16:45 Temp 37.3 37.3 37.3 99.1 99.1 99.1 Pulse 81 76 77 Resp 17 17 13 B/P (MAP) 132/63 (86) 147/59 (88) 143/86 (105) Pulse Ox 95 95 95 O2 Delivery Nasal Cannula O2 Flow Rate 2.00 01/25/19 01/25/19 01/25/19 01/25/19 17:00 17:06 17:15 17:30 Temp 37.3 37.3 37.3 37.3 99.1 99.1 99.1 99.1 Pulse 75 76 79 80 Resp 10 13 19 17 B/P (MAP) 146/115 (125) 142/72 (95) 146/75 (98) 128/66 (86) Pulse Ox 97 93 95 96 01/25/19 01/25/19 01/25/19 01/25/19 17:45 18:00 18:10 18:10 Temp 37.4 37.4 99.3 99.3 Pulse 80 80 75 80 Resp 18 19 16 16 B/P (MAP) 146/63 (90) 148/62 (90) Pulse Ox 95 96 97 98 01/25/19 01/25/19 01/25/19 01/25/19 18:15 18:30 19:00 19:00 Temp 37.3 37.3 37.3 99.1 99.1 99.1 Pulse 80 79 77 Resp 17 23 29 B/P (MAP) 151/65 (93) 165/73 (103) 154/112 (126) Pulse Ox 96 96 96 O2 Delivery Nasal Cannula O2 Flow Rate 2.00 01/25/19 01/25/19 01/25/19 01/25/19 19:15 19:30 19:45 20:00 Temp 37.2 37.2 37.3 99.0 99.0 99.1 Pulse 82 76 77 79 Resp 22 11 11 18 B/P (MAP) 146/76 (99) 147/56 (86) 159/78 (105) Pulse Ox 96 96 96 98 O2 Delivery Nasal Cannula O2 Flow Rate 2.00 FiO2 28 01/25/19 01/25/19 01/25/19 01/25/19 20:00 20:00 20:15 20:15 Temp 37.3 37.2 99.1 99.0 Pulse 79 80 81 80 Resp 18 18 18 12 B/P (MAP) 161/78 (105) Pulse Ox 98 96 99 98 01/25/19 01/25/19 01/25/19 01/25/19 20:30 20:45 21:00 21:05 Pulse 83 82 89 98 Resp 11 23 15 B/P (MAP) 165/77 (106) 142/65 (90) 153/62 Pulse Ox 99 98 98 01/25/19 01/25/19 01/25/19 01/25/19 21:15 21:30 21:45 22:00 Pulse 91 95 97 100 Resp 18 18 40 15 B/P (MAP) 153/62 (92) 173/97 (122) Pulse Ox 98 99 97 95 01/25/19 01/25/19 01/25/19 01/25/19 22:15 22:30 22:45 23:00 Pulse 96 95 91 96 Resp 14 20 15 19 B/P (MAP) 162/83 (109) 150/79 (102) Pulse Ox 98 97 99 97 01/25/19 01/25/19 01/25/19 01/25/19 23:00 23:13 23:15 23:30 Pulse 96 93 101 Resp 21 20 B/P (MAP) 160/74 160/74 (102) Pulse Ox 98 97 O2 Delivery Nasal Cannula O2 Flow Rate 2.00 01/25/19 01/26/19 01/26/19 01/26/19 23:45 00:00 00:15 00:45 Pulse 92 95 101 110 Resp 14 20 12 12 B/P (MAP) 138/61 (86) Pulse Ox 96 97 96 93 01/26/19 01/26/19 01/26/19 01/26/19 01:00 01:10 01:15 01:21 Pulse 115 107 106 102 Resp 16 28 24 21 B/P (MAP) 171/96 (121) 159/86 (110) Pulse Ox 93 88 91 89 01/26/19 01/26/19 01/26/19 01/26/19 01:30 01:30 01:45 02:00 Pulse 114 118 116 122 Resp 18 30 19 B/P (MAP) 176/94 (121) 171/96 Pulse Ox 93 88 92 01/26/19 01/26/19 01/26/19 01/26/19 02:00 02:15 02:30 02:45 Pulse 117 123 118 109 Resp 14 16 17 23 B/P (MAP) 145/52 (83) 119/62 (81) Pulse Ox 92 91 89 90 01/26/19 01/26/19 01/26/19 01/26/19 03:00 03:15 03:30 03:45 Pulse 116 117 111 112 Resp 24 20 17 11 B/P (MAP) 137/70 (92) 146/76 (99) 124/59 (80) 126/59 (81) Pulse Ox 88 86 86 86 01/26/19 01/26/19 01/26/19 01/26/19 04:00 04:00 04:15 04:30 Temp 99.4 99.4 Pulse 107 102 102 Resp 17 16 15 B/P (MAP) 123/50 (74) 116/52 (73) 120/59 (79) Pulse Ox 86 89 88 O2 Delivery Nasal Cannula O2 Flow Rate 2.00 01/26/19 01/26/19 01/26/19 01/26/19 04:45 04:45 05:00 05:00 Pulse 106 103 105 104 Resp 15 18 16 16 B/P (MAP) 125/59 (81) 119/49 (72) Pulse Ox 89 88 89 93 01/26/19 01/26/19 01/26/19 01/26/19 05:15 05:30 05:45 06:00 Pulse 105 102 89 89 Resp 16 19 17 14 B/P (MAP) 119/56 (77) 127/64 (85) 127/56 (79) 126/59 (81) Pulse Ox 92 89 91 92 Intake and Output 01/25/19 01/25/19 01/26/19 14:59 22:59 06:59 Intake Total 2244 ml Output Total 800 ml 400 ml Balance -800 ml 1844 ml Laboratory Tests Test 01/25/19 01:10 01/25/19 01:15 01/25/19 01:31 01/25/19 02:12 Blood Gas Sample Site LEFT RADIAL ARTERY Blood Gas pH 7.188 Blood Gas PCO2 46.6 mmHg Blood Gas PO2 179.8 mmHg Blood Gas HCO3 17.3 mmol/L Blood Gas Base Excess -10.7 mmol/L Jose Test POSITIVE Arterial Blood Oxygen Saturation 98.5 % Deoxyhemoglobin 1.4 % Carboxyhemoglobin 5.0 % Methemoglobin 0.4 % Total Hemoglobin 13.3 % Total Oxygen Concentration 17.8 % Lactic Acid (Blood Gas) 3.7 MMOL/L Blood Gas Temperature 37.0 Oxygen Delivery Method (LAB) VENT Blood Gas Vent Mode SIMV Blood Gas Vent Rate 15 FiO2 0.75 % Blood Gas Tidal Volume 450 ML Blood Gas PEEP 5.0 CMH2O Blood Gas Pressure Support 10 CMH2O Bicarbonate 18.7 mmol/L Sodium Level 142 mmol/L Potassium Level 3.6 mmol/L Chloride Level 105.0 mmol/L Carbon Dioxide Level 21.1 mmol/L Anion Gap 19.5 Blood Urea Nitrogen 19 mg/dL Creatinine 1.41 mg/dL Estimated GFR () 45.0 BUN/Creatinine Ratio 13.0 Glucose Level 245 mg/dL Calcium Level 9.4 mg/dL Total Bilirubin 0.2 mg/dL Aspartate Amino Transf (AST/SGOT) 15 U/L Alanine Aminotransferase (ALT/SGPT) 10 U/L Alkaline Phosphatase 158 U/L Total Creatine Kinase 59 U/L Troponin I 0.76 ng/mL Total Protein 7.3 g/dL Albumin 3.1 g/dL Globulin 4.2 White Blood Count 9.0 10^3/uL Red Blood Count 4.17 10^6/uL Hemoglobin 12.4 g/dL Hematocrit 37.6 % Mean Corpuscular Volume 90.2 fL Mean Corpuscular Hemoglobin 29.7 pg Mean Corpuscular Hemoglobin Concent 33.0 g/dL Red Cell Distribution Width 14.0 % Platelet Count 303 10^3/uL Mean Platelet Volume 10.9 fL Neutrophils (%) (Auto) 46.5 % Lymphocytes (%) (Auto) 38.2 % Monocytes (%) (Auto) 10.0 % Neutrophils # (Auto) 4.2 10^3/uL Lymphocytes # (Auto) 3.4 10^3/uL Monocytes # (Auto) 0.9 10^3/uL Absolute Immature Granulocyte (auto 0.06 10^3 u/L Eosinophils % 4.0 % Basophils % 0.6 % Basophils # 0.1 10^3/uL Eosinophil Count 0.4 10^3/uL Percent Immature Gran (Cell Imm) 0.70 % Urine Collection Type CCMS Urine Color YELLOW Urine Appearance CLOUDY Urine Bilirubin NEGATIVE MG/DL Urine Ketones NEGATIVE Urine Specific [place] 1.025 Urine pH 5 Urine Protein 500 mg/dL Urine Urobilinogen NORMAL Urine Nitrate NEGATIVE Urine Leukocyte Esterase NEGATIVE Urine Blood 10 TR Urine RBC NONE SEEN RBC/HPF Urine WBC 5-10 WBC/HPF Urine Squamous Epithelial Cells MODERATE #/HPF Urine Amorphous Sediment LARGE Urine Bacteria FEW Urine Other MUCUS 1+ #/HPF Urine Glucose NORMAL Test 01/25/19 04:30 01/25/19 08:00 01/25/19 13:10 01/25/19 13:35 Blood Gas Sample Site LEFT BRACHIAL ARTRY LEFT BRACHIAL ARTRY Blood Gas pH 7.349 7.331 Blood Gas PCO2 32.0 mmHg 35.6 mmHg Blood Gas PO2 103.3 mmHg 107.4 mmHg Blood Gas HCO3 17.2 mmol/L 18.4 mmol/L Blood Gas Base Excess -7.4 mmol/L -6.8 mmol/L Jose Test N/A N/A Arterial Blood Oxygen Saturation 96.9 % 96.8 % Deoxyhemoglobin 3.0 % 3.2 % Carboxyhemoglobin 1.6 % 0.6 % Methemoglobin 0.3 % 0.3 % Total Hemoglobin 11.7 % 11.3 % Total Oxygen Concentration 15.8 % 15.4 % Lactic Acid (Blood Gas) 0.8 MMOL/L 1.2 MMOL/L Blood Gas Temperature 37.0 37 Oxygen Delivery Method (LAB) VENT Blood Gas Vent Mode SIMV SIMV Blood Gas Vent Rate 15 15 FiO2 0.45 % 45 % Blood Gas Tidal Volume 450 ML 450 ML Blood Gas PEEP 5.0 CMH2O 5 CMH2O Blood Gas Pressure Support 10 CMH2O 10 CMH2O Bicarbonate 18.2 mmol/L 19.5 mmol/L White Blood Count 10.6 10^3/uL Red Blood Count 3.98 10^6/uL Hemoglobin 11.8 g/dL Hematocrit 35.2 % Mean Corpuscular Volume 88.4 fL Mean Corpuscular Hemoglobin 29.6 pg Mean Corpuscular Hemoglobin Concent 33.5 g/dL Red Cell Distribution Width 14.2 % Platelet Count 242 10^3/uL Mean Platelet Volume 11.1 fL Neutrophils (%) (Auto) 90.9 % Lymphocytes (%) (Auto) 6.2 % Monocytes (%) (Auto) 1.7 % Neutrophils # (Auto) 9.7 10^3/uL Lymphocytes # (Auto) 0.7 10^3/uL Monocytes # (Auto) 0.2 10^3/uL Absolute Immature Granulocyte (auto 0.03 10^3 u/L Eosinophils % 0.6 % Basophils % 0.3 % Basophils # 0.0 10^3/uL Eosinophil Count 0.1 10^3/uL Troponin I 1.27 ng/mL Pro-B-Type Natriuretic Peptide 71238 pg/mL Percent Immature Gran (Cell Imm) 0.30 % Differential Total Cells Counted 100 #CELLS Segmented Neutrophils 92 % Band Neutrophils 1 % Lymphocytes 7 % Platelet Morphology NORMAL Poikilocytosis 1+ Anisocytosis 1+ Test 01/25/19 18:50 01/26/19 01:31 01/26/19 04:50 01/26/19 04:58 Troponin I 0.90 ng/mL Vancomycin Level Trough 22.8 ug/mL Blood Gas Sample Site RT BRACIAL ARTERY Blood Gas pH 7.386 Blood Gas PCO2 26.3 mmHg Blood Gas PO2 73.0 mmHg Blood Gas HCO3 15.4 mmol/L Blood Gas Base Excess -8.2 mmol/L Jose Test N/A Arterial Blood Oxygen Saturation 93.5 % Deoxyhemoglobin 6.4 % Carboxyhemoglobin 1.1 % Methemoglobin 0.5 % Total Hemoglobin 11.0 % Total Oxygen Concentration 14.3 % Lactic Acid (Blood Gas) 1.9 MMOL/L Blood Gas Temperature 37.0 Oxygen Delivery Method (LAB) NASAL CANNULA FiO2 0.32 % Bicarbonate 16.2 mmol/L White Blood Count 10.8 10^3/uL Red Blood Count 3.42 10^6/uL Hemoglobin 10.3 g/dL Hematocrit 30.7 % Mean Corpuscular Volume 89.8 fL Mean Corpuscular Hemoglobin 30.1 pg Mean Corpuscular Hemoglobin Concent 33.6 g/dL Red Cell Distribution Width 14.2 % Platelet Count 225 10^3/uL Mean Platelet Volume 11.1 fL Neutrophils (%) (Auto) 89.8 % Lymphocytes (%) (Auto) 6.2 % Monocytes (%) (Auto) 3.8 % Neutrophils # (Auto) 9.7 10^3/uL Lymphocytes # (Auto) 0.7 10^3/uL Monocytes # (Auto) 0.4 10^3/uL Absolute Immature Granulocyte (auto 0.02 10^3 u/L Eosinophils % 0.0 % Basophils % 0.0 % Basophils # 0.0 10^3/uL Eosinophil Count 0.0 10^3/uL Sodium Level 139 mmol/L Potassium Level 3.4 mmol/L Chloride Level 108.0 mmol/L Carbon Dioxide Level 18.9 mmol/L Anion Gap 15.5 Blood Urea Nitrogen 21 mg/dL Creatinine 1.43 mg/dL Estimated GFR () 44.3 BUN/Creatinine Ratio 14.0 Glucose Level 143 mg/dL Hemoglobin A1c 5.8 % Calcium Level 9.2 mg/dL Total Bilirubin 0.3 mg/dL Aspartate Amino Transf (AST/SGOT) 19 U/L Alanine Aminotransferase (ALT/SGPT) 11 U/L Alkaline Phosphatase 110 U/L Total Protein 6.2 g/dL Albumin 2.7 g/dL Globulin 3.5 Triglycerides Level 64 mg/dL Cholesterol Level 223 mg/dL LDL Cholesterol, Calculated 163.2 VLDL Cholesterol 12.8 HDL Cholesterol 47 mg/dL Cholesterol Ratio (LDL/HDL) [id number] Percent Immature Gran (Cell Imm) 0.20 % Test 01/26/19 05:32 Differential Total Cells Counted 100 #CELLS Segmented Neutrophils 84 % Lymphocytes 14 % Monocytes 2 % Current Medications Medications (Trade) Dose Ordered Sig/Jacques PRN Reason Start Time Stop Time Status Last Admin Acetaminophen (Tylenol) 1,000 mg Q6HR PRN PAIN 01/26/19 00:30 02/25/19 00:29 01/26/19 00:33 Albuterol/ Ipratropium (Duoneb 0.5 Mg-3 Mg/3 ml Soln) 3 ml RTQ4 01/25/19 05:00 02/24/19 04:59 01/26/19 05:37 Aspirin (Aspirin) 81 mg DAILY 01/25/19 13:00 02/24/19 12:59 01/25/19 13:00 Azithromycin 500 mg/Sodium Chloride 250 ml @ 175 mls/hr Q24HRS 01/26/19 08:00 02/25/19 07:59 UNV Clopidogrel Bisulfate (Plavix) 75 mg DAILY 01/26/19 09:00 02/25/19 08:59 Dextrose (Dextrose 50%-Water Syringe) 25 ml STAT PRN HYPOGLYCEMIA 01/25/19 10:00 02/24/19 09:59 Enoxaparin Sodium (Lovenox) 40 mg DAILY 01/25/19 09:00 02/24/19 08:59 01/25/19 09:00 Hydralazine HCl (Apresoline) 10 mg Q4HR PRN HYPERTENSION 01/25/19 12:30 02/24/19 12:29 01/25/19 23:13 Ibuprofen (Motrin) 800 mg Q6H PRN PAIN 01/25/19 23:30 02/24/19 23:29 01/26/19 00:10 Insulin Glargine (Lantus) 20 unit HS 01/25/19 10:00 02/24/19 09:59 Future Hold 01/25/19 09:54 Insulin Human Regular (Humulin R) Give 30 minutes before meal ACHS 01/25/19 21:00 02/24/19 20:59 01/25/19 21:00 Levetiracetam (Keppra) 500 mg BID 01/25/19 12:31 02/24/19 12:30 01/25/19 21:05 Methylprednisolone Sodium Succinate (Solu-Medrol) 60 mg Q6 01/25/19 09:30 02/24/19 09:29 01/26/19 05:59 Morphine Sulfate (Duramorph) 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 Q4H PRN PAIN 01/26/19 03:00 02/25/19 02:59 UNV 01/26/19 02:59 Nifedipine (Procardia) 30 mg BID 01/25/19 12:00 02/24/19 11:59 01/25/19 21:05 Pantoprazole Sodium (Protonix Iv) 40 mg DAILY 01/25/19 09:00 02/24/19 08:59 01/25/19 09:00 Piperacillin Sod/ Tazobactam Sod 3.375 gm/Sodium Chloride 100 ml @ 100 mls/hr Q6H 01/25/19 02:30 02/24/19 02:29 01/26/19 02:30 Potassium Chloride (Klor-Con 10) 20 meq DAILY24 01/25/19 12:00 02/24/19 11:59 01/25/19 12:00 Propofol (Diprivan) 1,000 mg PRN PRN SEDATION 01/25/19 03:00 02/24/19 02:59 01/25/19 07:07 Sertraline HCl (Zoloft) 100 mg DAILY 01/26/19 09:00 02/25/19 08:59 Simvastatin (Zocor) 40 mg HS 01/25/19 21:00 02/24/19 20:59 01/25/19 21:05 Sodium Chloride 1,000 ml @ 125 mls/hr Q8H 01/25/19 03:30 02/24/19 03:29 01/26/19 00:18 Sepsis Infection Criteria Pres: Documented Infection LEVEL 1 SEPSIS INFECTION CRITE: Flu-Pneumonia, Urinary Tract Infection LEVEL 2-SIRS (LIST ALL THAT AP: [id number] Cardiovascular Evidence: Not Assessed or None Hematologic Evidence: None/Not assessed Hepatic Evidence: None/Not assessed Metabolic Evidence: None/Not assessed Neurological Evidence: None/Not assessed Respiratory Evidence: Need for O2 to keep>90%, O2 SAT<90room air Renal Evidence: None/Not assessed O2 Sat by Pulse Oximetry: 97 Respiratory End-tidal CO2: 22 Oxygen Flow Rate: 1.00 Assessment/Plan Assessment/Plan Assessment/Plan Patient is a 68 F PMH of Seizure Disorder, CAD, COPD presenting with respiratory failure from CAP/COPD. Plan 1.) Acute Respiratory Failure: 2/2 to CAP/COPD s/p extubation. Patient improving, no resp distress. Cont O2 support. 2.) Retroperitoneal Hematoma: Cards managing. Hg is decreasing. Pain improving. Recheck CBC in AM. 3.) CAP - Cardiology restarted abx. 4.) Renal Failure - Cr/GFR stable. 5.) HTN: cont current regimen. 6. CAD/Elevated Troponins: s/p PCI w/ stent. Cont Statin/dAPT. Cards following. 7. PPx: PPI 8. DM: cont SSI to cover 9. Generalized weakness: PT eval completed. Patient approved for d/c to SNF MAGUI CONNER MD Jan 31, 2019 10:13
--- NOTE | 2019-01-31 11:02 | NUR ---
BATHING OFFERED PT A BATH OR SHOWER AND SHE REFUSED AT THIS TIME. EXPLAINED TO PT TO JUST LET STAFF KNOW WHEN SHE WOULD LIKE ONE. WILL ALSO CHECK BACK TO SEE IF WANTS ONE. CALL HAYDEE IN REACH. Addendum: 01/31/19 at 1104 by LE Silver LVN Amended: Links added.
[2019-01-31] MEDS: TYLENOL PO PRN (12:14)
--- NOTE | 2019-01-31 12:49 | NUR ---
OXYGEN CHALLENGE TEST OXYGEN CHALLENGE TEST COMPLETED, IN RA 95%, WHILE WALKING WITHOUT OXYGEN IT IS 96%.
[2019-01-31 13:17] VITALS: BP 132/64
[2019-01-31 16:34] VITALS: BP 157/75
[2019-01-31 19:40] VITALS: BP 153/72
[2019-01-31] MEDS: LIPITOR PO SCH (21:01)
--- NOTE | 2019-01-31 22:22 | PNH ---
DATE: 01/30/2019 SUBJECTIVE: The patient has been on the floor. She is doing well. OBJECTIVE: VITAL SIGNS: Stable, temperature is 98, pulse is 76, respirations 20, 130/70 blood pressure, 96 saturation on 3 liters nasal cannula. Intake, output chart shows that she had an aggressive diuresis of 2024, in negative balance of 928. NECK: No JVD. LUNGS: Clear and she does have left lung base consolidation. HEART: Sounds are normal. Abdominal hematoma is regressing. LABORATORY DATA: White count is 13.3 with 10.4 hemoglobin and electrolytes are normal. Renal function is almost normalized to BUN of 17, creatinine of 1.19, tolerating Entresto well, low protein, low albumin and cultures are negative. Chest x-ray, left lower lobe infiltrate. IMPRESSION: Ischemic cardiomyopathy, 35% to 38% ejection fraction post-circumflex stenting, non-ST elevation myocardial infarction, left lung pneumonia, acute on chronic systolic heart failure, hypertension, hypertensive heart disease, episodes of flash pulmonary edema due to accelerated hypertension, hematoma right groin regressing, blood loss due to bleeding post-cath site, received 4 units of blood, stable status. Blood loss anemia. PLAN: At this time, continue same therapy. Discharge planning on 01/31/2019. Elda Otero MD DR: GLYNN/sania JOB# [id number]
[2019-02-01 00:47] VITALS: BP 153/70
[2019-02-01] MEDS: NORCO 5MG PO PRN ×2 (00:48→08:45)
[2019-02-01 04:46] VITALS: BP 148/74
[2019-02-01 05:40] LABS: BASOPHIL % 0.1 % (0.0-0.2); EOSINOPHIL # 0.7 10^3/uL (0.0-0.2); EOSINOPHIL % 5.3 % (0.0-5.0); HEMOGLOBIN 9.5 g/dL (12.0-15.0); LYMPHOCYTES % 15.2 % (24.0-44.0); MEAN CELL HGB 29.4 pg (26-34); MEAN CELL HGB CONCENTRATION 32.3 g/dL (33-37); MEAN PLATELET VOLUME 11.4 fL (7.8-11.0); MONOCYTES % 15.1 % (5.0-12.0); NEUTROPHIL # 8.3 10^3/uL (1.8-7.7); NEUTROPHILS % 63.3 % (41.0-85.0); RED CELL DISTRIBUTION WIDTH 14.3 % (11.5-14.5); WHITE BLOOD CELL 13.1 10^3/uL (4.5-11.0)
[2019-02-01 06:19] LABS: CALCIUM 8.9 mg/dL (8.4-10.5); CARBON DIOXIDE 24.7 mmol/L (20.0-32)
[2019-02-01] MEDS: HUMALOG SQ SCH (08:00)
[2019-02-01 08:10] VITALS: BP_SYST 132; BP_SYST 161; BP_DIAS 57; BP_DIAS 85
[2019-02-01] MEDS: ENTRESTO 24 MG-26 MG TABLET PO SCH (08:39)
[2019-02-01] MEDS: BRILINTA PO SCH (08:39)
[2019-02-01] MEDS: COREG PO SCH (08:40)
[2019-02-01] MEDS: KEPPRA PO SCH (08:40)
[2019-02-01] MEDS: ZOLOFT PO SCH (08:40)
[2019-02-01] MEDS: PROTONIX PO SCH (08:40)
[2019-02-01] MEDS: ASPIRIN EC PO SCH (08:40)
[2019-02-01] MEDS: APRESOLINE PO SCH (08:40)
[2019-02-01] MEDS: ROCEPHIN 1,000 MG in NS 100ML 100 ML IV SCH (08:41)
[2019-02-01] MEDS: PULMICORT IH SCH (09:02)
[2019-02-01] MEDS ORDERED: CEFD300C2 PO (09:24)
--- NOTE | 2019-02-01 09:41 | PRM.DC ---
Discharge Summary Date of Discharge: Feb 01, 2019 Time of Request to Discharge: 09:30 Reason for Visit: shortness of breath Hospital Course Patient brought in with respiratory failure and intubated and admitted to ICU. Respiratory failure 2/2 COPD, community acquired Pneumonia. Patient also had elevated troponins. Patient was started on IV abx and IV steroids and was able to be weaned off ventilator. Patient had acute heart failure and Echocardiogram ordered and Cardiology consulted. Echo showed EF of 40% and some LV dysfunction/hypokinesis. Cardiology gave recommendations on medications and recommended LHC. Patient was agreeable. LHC performed with PCI and stenting x 1. Following procedure, patient had sudden onset Hypotension and STAT labs showed severe decrease in Hg. Patient had STAT CT scan abdomen performed showing RLQ hematoma. Patient was transfused 4 units over the next 24 hours and Hg was monitored closely until stable. Pain was controlled with IV medications and patient anticoagulation held temporarily. Hematoma stabilized, Hg remained stable. Cardiology was able to restart dAPT which is required following stent placement. Patient was monitored closely in ICU and had stabilization of Vitals, kidney function, Hg, and was able to transfer down to the medical floor. Hg, kidney function monitored daily. Cardiology adjusted medications post PCI and to optimize treatment of heart failure. Patient was treated with IV abx throughout stay save one day because Medicine and Cardiology felt that possible Pneumonia was more likely heart failure. Daily CXR showed that patient did likely have Pneumonia and IV abx restarted. Patient COPD improved and patient remained stable from respiratory standpoint. Patient had pronounced weakness so PT was consulted for evaluation. Patient was approved by insurance to d/c to [facility] on 02/01. Patient will be d/c on all medication per Cardiology and previous home medications for seizure disorder. Patient will cont dAPT/Statin therapy as recommended by Cardiology. Patient has persistent elevated of WBC 2/2 hematoma and will likely take time to completely resolve. Patient will f/u with Cardiology within 2 weeks. Patient History: Unknown 33 MOTHER 33 FATHER General: Alert, Oriented X3, Cooperative, No acute distress HEENT: Atraumatic, PERRLA, EOMI, Mucous membr. moist/pink Neck: Supple, No JVD Lungs: Clear to auscultation, Normal air movement Heart: Regular rate, Normal S1, Normal S2, No murmurs Abdomen: Normal bowel sounds, Soft, No tenderness Extremities: No edema, Normal pulses, No tenderness/swelling Skin: No rashes, No breakdown, No significant lesion Neuro: Normal speech, Strength at 5/5 X4 ext, Normal tone, Sensation intact, Cranial nerves 3-12 NL Psych/Mental Status: Mental status NL, Mood NL Scheduled Albuterol Sulfate (Ventolin Hfa), 18 GM IH Q6HR, (Reported) Aspirin (Aspirin Ec), 81 MG PO DAILY Atorvastatin 40MG (Lipitor 40MG), 40 MG PO HS Carvedilol 12.5MG (Coreg 12.MG), 12.5 MG PO BID Cefdinir (Cefdinir), 300 MG PO BID Hydralazine Hcl (Hydralazine Hcl), 25 MG PO TID Insulin Glargine,Hum.rec.anlog (Lantus), 20 UNIT SQ HS Levetiracetam (Keppra), 500 MG PO BID Montelukast Sodium (Montelukast Sodium), 1 TAB PO HS, (Reported) Omeprazole (Omeprazole), 40 MG PO DAILY24, (Reported) Pantoprazole Sodium (Protonix), 40 MG PO DAILY Potassium Chloride (Potassium Chloride), 20 MEQ PO DAILY24 Sacubitril/Valsartan (Entresto 24 mg-26 mg Tablet), 1 EACH PO BID Sertraline Hcl (Zoloft), 1 TAB PO DAILY, (Reported) Ticagrelor (Brilinta), 90 MG PO BID Trazodone Hcl (Trazodone Hcl), 1.5 TAB PO HS, (Reported) Umeclidinium Brm/Vilanterol Tr (Anoro Ellipta 62.5-25 Mcg INH), 1 EACH IH DAILY24, (Reported) Scheduled PRN Nitroglycerin (Nitrostat), 0.4 MG SL PRN PRN for CHEST PAIN Discontinued Medications Carvedilol 3.125MG (Coreg 3.125MG), 1 TAB PO BID, (Reported) Discontinued Reason: Discontinue Clopidogrel Bisulfate (Plavix), 1 TAB PO DAILY, (Reported) Discontinued Reason: Cancel Nifedipine (Nifedipine Er), 90 MG PO DAILY24, (Reported) Discontinued Reason: Cancel Simvastatin (Simvastatin), 1 TAB PO HS Discontinued Reason: Discontinue Sepsis Evaluation @ Discharge Vital Sign - Last 24 Hours 01/25/19 01/25/19 01/25/19 01/25/19 08:00 08:05 08:15 08:30 Temp 36.7 36.7 36.7 98.1 98.1 98.1 Pulse 58 57 62 67 Resp 15 15 17 16 B/P (MAP) 134/64 (87) 135/68 (90) 173/92 (119) Pulse Ox 99 99 99 99 FiO2 45 01/25/19 01/25/19 01/25/19 01/25/19 08:45 09:00 09:05 09:05 Temp 36.7 36.8 98.1 98.2 Pulse 56 56 58 55 Resp 15 15 15 15 B/P (MAP) 167/72 (103) 131/68 (89) Pulse Ox 100 99 97 99 01/25/19 01/25/19 01/25/19 01/25/19 09:15 09:30 09:45 10:00 Temp 36.8 36.8 36.8 36.8 98.2 98.2 98.2 98.2 Pulse 57 62 55 57 Resp 16 15 16 B/P (MAP) 141/70 (93) 136/59 (84) 145/64 (91) 133/67 (89) Pulse Ox 99 98 97 95 01/25/19 01/25/19 01/25/19 01/25/19 10:10 10:15 10:30 10:42 Temp 36.7 36.7 98.1 98.1 Pulse 55 56 58 Resp 15 17 16 B/P (MAP) 152/72 (98) 158/69 (98) 168/76 Pulse Ox 98 96 98 FiO2 30 01/25/19 01/25/19 01/25/19 01/25/19 10:45 11:00 11:15 11:30 Temp 36.7 36.7 36.7 36.8 98.1 98.1 98.1 98.2 Pulse 54 57 60 65 Resp 15 16 15 15 B/P (MAP) 162/64 (96) 168/76 (106) 172/74 (106) 178/79 (112) Pulse Ox 95 97 97 96 01/25/19 01/25/19 01/25/19 01/25/19 11:45 12:00 12:00 12:00 Temp 36.8 36.8 98.2 98.2 Pulse 66 56 66 Resp 16 18 B/P (MAP) 153/85 (107) 166/76 (106) Pulse Ox 96 99 96 O2 Delivery Mechanical Ventilator FiO2 30 01/25/19 01/25/19 01/25/19 01/25/19 12:15 12:30 12:40 12:40 Temp 36.9 36.9 98.4 98.4 Pulse 67 74 72 72 B/P (MAP) 175/79 (111) 174/84 (114) 180/83 Pulse Ox 95 95 94 01/25/19 01/25/19 01/25/19 01/25/19 12:40 12:40 12:45 13:00 Temp 36.9 98.4 Pulse 70 70 74 68 Resp 20 12 24 B/P (MAP) 176/84 (114) Pulse Ox 94 94 95 95 FiO2 30 28 01/25/19 01/25/19 01/25/19 01/25/19 13:00 13:15 13:16 13:20 Temp 37.0 37.1 37.1 98.6 98.8 98.8 Pulse 67 73 74 72 Resp 16 B/P (MAP) 180/83 (115) 167/71 (103) Pulse Ox 94 95 96 95 FiO2 28 01/25/19 01/25/19 01/25/19 01/25/19 13:30 13:45 13:53 14:00 Temp 37.2 37.3 37.3 37.3 99.0 99.1 99.1 99.1 Pulse 65 70 68 64 B/P (MAP) 148/60 (89) 139/101 (114) 147/64 (91) 149/69 (95) Pulse Ox 94 95 95 94 01/25/19 01/25/19 01/25/19 01/25/19 14:15 14:30 14:45 15:00 Temp 37.4 37.4 37.3 37.3 99.3 99.3 99.1 99.1 Pulse 66 77 76 75 Resp 20 16 19 B/P (MAP) 147/67 (93) 125/60 (81) 119/60 (79) 124/64 (84) Pulse Ox 95 94 95 94 01/25/19 01/25/19 01/25/19 01/25/19 15:15 15:30 15:45 16:00 Temp 37.3 37.3 37.3 37.3 99.1 99.1 99.1 99.1 Pulse 83 79 77 78 Resp 18 B/P (MAP) 126/61 (82) 118/56 (76) 127/63 (84) 99/53 (68) Pulse Ox 94 93 95 95 01/25/19 01/25/19 01/25/19 01/25/19 16:00 16:15 16:30 16:45 Temp 37.3 37.3 37.3 99.1 99.1 99.1 Pulse 81 76 77 Resp 17 17 13 B/P (MAP) 132/63 (86) 147/59 (88) 143/86 (105) Pulse Ox 95 95 95 O2 Delivery Nasal Cannula O2 Flow Rate 2.00 01/25/19 01/25/19 01/25/19 01/25/19 17:00 17:06 17:15 17:30 Temp 37.3 37.3 37.3 37.3 99.1 99.1 99.1 99.1 Pulse 75 76 79 80 Resp 10 13 19 17 B/P (MAP) 146/115 (125) 142/72 (95) 146/75 (98) 128/66 (86) Pulse Ox 97 93 95 96 01/25/19 01/25/19 01/25/19 01/25/19 17:45 18:00 18:10 18:10 Temp 37.4 37.4 99.3 99.3 Pulse 80 80 75 80 Resp 16 16 B/P (MAP) 146/63 (90) 148/62 (90) Pulse Ox 95 96 97 98 01/25/19 01/25/19 01/25/19 01/25/19 18:15 18:30 19:00 19:00 Temp 37.3 37.3 37.3 99.1 99.1 99.1 Pulse 80 79 77 Resp 29 B/P (MAP) 151/65 (93) 165/73 (103) 154/112 (126) Pulse Ox 96 96 96 O2 Delivery Nasal Cannula O2 Flow Rate 2.00 01/25/19 01/25/19 01/25/19 01/25/19 19:15 19:30 19:45 20:00 Temp 37.2 37.2 37.3 99.0 99.0 99.1 Pulse 82 76 77 79 Resp 22 11 11 18 B/P (MAP) 146/76 (99) 147/56 (86) 159/78 (105) Pulse Ox 96 96 96 98 O2 Delivery Nasal Cannula O2 Flow Rate 2.00 FiO2 28 01/25/19 01/25/19 01/25/19 01/25/19 20:00 20:00 20:15 20:15 Temp 37.3 37.2 99.1 99.0 Pulse 79 80 81 80 Resp 18 18 18 12 B/P (MAP) 161/78 (105) Pulse Ox 98 96 99 98 01/25/19 01/25/19 01/25/19 01/25/19 20:30 20:45 21:00 21:05 Pulse 83 82 89 98 Resp 11 23 15 B/P (MAP) 165/77 (106) 142/65 (90) 153/62 Pulse Ox 99 98 98 01/25/19 01/25/19 01/25/19 01/25/19 21:15 21:30 21:45 22:00 Pulse 91 95 97 100 Resp 18 18 40 15 B/P (MAP) 153/62 (92) 173/97 (122) Pulse Ox 98 99 97 95 01/25/19 01/25/19 01/25/19 01/25/19 22:15 22:30 22:45 23:00 Pulse 96 95 91 96 Resp 14 20 15 19 B/P (MAP) 162/83 (109) 150/79 (102) Pulse Ox 98 97 99 97 01/25/19 01/25/19 01/25/19 01/25/19 23:00 23:13 23:15 23:30 Pulse 96 93 101 Resp 21 20 B/P (MAP) 160/74 160/74 (102) Pulse Ox 98 97 O2 Delivery Nasal Cannula O2 Flow Rate 2.00 01/25/19 01/26/19 01/26/19 01/26/19 23:45 00:00 00:15 00:45 Pulse 92 95 101 110 Resp 14 20 12 12 B/P (MAP) 138/61 (86) Pulse Ox 96 97 96 93 01/26/19 01/26/19 01/26/19 01/26/19 01:00 01:10 01:15 01:21 Pulse 115 107 106 102 Resp 16 28 24 21 B/P (MAP) 171/96 (121) 159/86 (110) Pulse Ox 93 88 91 89 01/26/19 01/26/19 01/26/19 01/26/19 01:30 01:30 01:45 02:00 Pulse 114 118 116 122 Resp 18 30 19 B/P (MAP) 176/94 (121) 171/96 Pulse Ox 93 88 92 01/26/19 01/26/19 01/26/19 01/26/19 02:00 02:15 02:30 02:45 Pulse 117 123 118 109 Resp 14 16 17 23 B/P (MAP) 145/52 (83) 119/62 (81) Pulse Ox 92 91 89 90 01/26/19 01/26/19 01/26/19 01/26/19 03:00 03:15 03:30 03:45 Pulse 116 117 111 112 Resp 24 20 17 11 B/P (MAP) 137/70 (92) 146/76 (99) 124/59 (80) 126/59 (81) Pulse Ox 88 86 86 86 01/26/19 01/26/19 01/26/19 01/26/19 04:00 04:00 04:15 04:30 Temp 99.4 99.4 Pulse 107 102 102 Resp 17 16 15 B/P (MAP) 123/50 (74) 116/52 (73) 120/59 (79) Pulse Ox 86 89 88 O2 Delivery Nasal Cannula O2 Flow Rate 2.00 01/26/19 01/26/19 01/26/19 01/26/19 04:45 04:45 05:00 05:00 Pulse 106 103 105 104 Resp 15 18 16 16 B/P (MAP) 125/59 (81) 119/49 (72) Pulse Ox 89 88 89 93 01/26/19 01/26/19 01/26/19 01/26/19 05:15 05:30 05:45 06:00 Pulse 105 102 89 89 Resp 16 19 17 14 B/P (MAP) 119/56 (77) 127/64 (85) 127/56 (79) 126/59 (81) Pulse Ox 92 89 91 92 Intake and Output 01/25/19 01/25/19 01/26/19 14:59 22:59 06:59 Intake Total 2244 ml Output Total 800 ml 400 ml Balance -800 ml 1844 ml Laboratory Tests Test 01/25/19 01:10 01/25/19 01:15 01/25/19 01:31 01/25/19 02:12 Blood Gas Sample Site LEFT RADIAL ARTERY Blood Gas pH 7.188 Blood Gas PCO2 46.6 mmHg Blood Gas PO2 179.8 mmHg Blood Gas HCO3 17.3 mmol/L Blood Gas Base Excess -10.7 mmol/L Jose Test POSITIVE Arterial Blood Oxygen Saturation 98.5 % Deoxyhemoglobin 1.4 % Carboxyhemoglobin 5.0 % Methemoglobin 0.4 % Total Hemoglobin 13.3 % Total Oxygen Concentration 17.8 % Lactic Acid (Blood Gas) 3.7 MMOL/L Blood Gas Temperature 37.0 Oxygen Delivery Method (LAB) VENT Blood Gas Vent Mode SIMV Blood Gas Vent Rate 15 FiO2 0.75 % Blood Gas Tidal Volume 450 ML Blood Gas PEEP 5.0 CMH2O Blood Gas Pressure Support 10 CMH2O Bicarbonate 18.7 mmol/L Sodium Level 142 mmol/L Potassium Level 3.6 mmol/L Chloride Level 105.0 mmol/L Carbon Dioxide Level 21.1 mmol/L Anion Gap 19.5 Blood Urea Nitrogen 19 mg/dL Creatinine 1.41 mg/dL Estimated GFR () 45.0 BUN/Creatinine Ratio 13.0 Glucose Level 245 mg/dL Calcium Level 9.4 mg/dL Total Bilirubin 0.2 mg/dL Aspartate Amino Transf (AST/SGOT) 15 U/L Alanine Aminotransferase (ALT/SGPT) 10 U/L Alkaline Phosphatase 158 U/L Total Creatine Kinase 59 U/L Troponin I 0.76 ng/mL Total Protein 7.3 g/dL Albumin 3.1 g/dL Globulin 4.2 White Blood Count 9.0 10^3/uL Red Blood Count 4.17 10^6/uL Hemoglobin 12.4 g/dL Hematocrit 37.6 % Mean Corpuscular Volume 90.2 fL Mean Corpuscular Hemoglobin 29.7 pg Mean Corpuscular Hemoglobin Concent 33.0 g/dL Red Cell Distribution Width 14.0 % Platelet Count 303 10^3/uL Mean Platelet Volume 10.9 fL Neutrophils (%) (Auto) 46.5 % Lymphocytes (%) (Auto) 38.2 % Monocytes (%) (Auto) 10.0 % Neutrophils # (Auto) 4.2 10^3/uL Lymphocytes # (Auto) 3.4 10^3/uL Monocytes # (Auto) 0.9 10^3/uL Absolute Immature Granulocyte (auto 0.06 10^3 u/L Eosinophils % 4.0 % Basophils % 0.6 % Basophils # 0.1 10^3/uL Eosinophil Count 0.4 10^3/uL Percent Immature Gran (Cell Imm) 0.70 % Urine Collection Type CCMS Urine Color YELLOW Urine Appearance CLOUDY Urine Bilirubin NEGATIVE MG/DL Urine Ketones NEGATIVE Urine Specific [place] 1.025 Urine pH 5 Urine Protein 500 mg/dL Urine Urobilinogen NORMAL Urine Nitrate NEGATIVE Urine Leukocyte Esterase NEGATIVE Urine Blood 10 TR Urine RBC NONE SEEN RBC/HPF Urine WBC 5-10 WBC/HPF Urine Squamous Epithelial Cells MODERATE #/HPF Urine Amorphous Sediment LARGE Urine Bacteria FEW Urine Other MUCUS 1+ #/HPF Urine Glucose NORMAL Test 01/25/19 04:30 01/25/19 08:00 01/25/19 13:10 01/25/19 13:35 Blood Gas Sample Site LEFT BRACHIAL ARTRY LEFT BRACHIAL ARTRY Blood Gas pH 7.349 7.331 Blood Gas PCO2 32.0 mmHg 35.6 mmHg Blood Gas PO2 103.3 mmHg 107.4 mmHg Blood Gas HCO3 17.2 mmol/L 18.4 mmol/L Blood Gas Base Excess -7.4 mmol/L -6.8 mmol/L Jose Test N/A N/A Arterial Blood Oxygen Saturation 96.9 % 96.8 % Deoxyhemoglobin 3.0 % 3.2 % Carboxyhemoglobin 1.6 % 0.6 % Methemoglobin 0.3 % 0.3 % Total Hemoglobin 11.7 % 11.3 % Total Oxygen Concentration 15.8 % 15.4 % Lactic Acid (Blood Gas) 0.8 MMOL/L 1.2 MMOL/L Blood Gas Temperature 37.0 37 Oxygen Delivery Method (LAB) VENT Blood Gas Vent Mode SIMV SIMV Blood Gas Vent Rate 15 15 FiO2 0.45 % 45 % Blood Gas Tidal Volume 450 ML 450 ML Blood Gas PEEP 5.0 CMH2O 5 CMH2O Blood Gas Pressure Support 10 CMH2O 10 CMH2O Bicarbonate 18.2 mmol/L 19.5 mmol/L White Blood Count 10.6 10^3/uL Red Blood Count 3.98 10^6/uL Hemoglobin 11.8 g/dL Hematocrit 35.2 % Mean Corpuscular Volume 88.4 fL Mean Corpuscular Hemoglobin 29.6 pg Mean Corpuscular Hemoglobin Concent 33.5 g/dL Red Cell Distribution Width 14.2 % Platelet Count 242 10^3/uL Mean Platelet Volume 11.1 fL Neutrophils (%) (Auto) 90.9 % Lymphocytes (%) (Auto) 6.2 % Monocytes (%) (Auto) 1.7 % Neutrophils # (Auto) 9.7 10^3/uL Lymphocytes # (Auto) 0.7 10^3/uL Monocytes # (Auto) 0.2 10^3/uL Absolute Immature Granulocyte (auto 0.03 10^3 u/L Eosinophils % 0.6 % Basophils % 0.3 % Basophils # 0.0 10^3/uL Eosinophil Count 0.1 10^3/uL Troponin I 1.27 ng/mL Pro-B-Type Natriuretic Peptide 18349 pg/mL Percent Immature Gran (Cell Imm) 0.30 % Differential Total Cells Counted 100 #CELLS Segmented Neutrophils 92 % Band Neutrophils 1 % Lymphocytes 7 % Platelet Morphology NORMAL Poikilocytosis 1+ Anisocytosis 1+ Test 01/25/19 18:50 01/26/19 01:31 01/26/19 04:50 01/26/19 04:58 Troponin I 0.90 ng/mL Vancomycin Level Trough 22.8 ug/mL Blood Gas Sample Site RT BRACIAL ARTERY Blood Gas pH 7.386 Blood Gas PCO2 26.3 mmHg Blood Gas PO2 73.0 mmHg Blood Gas HCO3 15.4 mmol/L Blood Gas Base Excess -8.2 mmol/L Jose Test N/A Arterial Blood Oxygen Saturation 93.5 % Deoxyhemoglobin 6.4 % Carboxyhemoglobin 1.1 % Methemoglobin 0.5 % Total Hemoglobin 11.0 % Total Oxygen Concentration 14.3 % Lactic Acid (Blood Gas) 1.9 MMOL/L Blood Gas Temperature 37.0 Oxygen Delivery Method (LAB) NASAL CANNULA FiO2 0.32 % Bicarbonate 16.2 mmol/L White Blood Count 10.8 10^3/uL Red Blood Count 3.42 10^6/uL Hemoglobin 10.3 g/dL Hematocrit 30.7 % Mean Corpuscular Volume 89.8 fL Mean Corpuscular Hemoglobin 30.1 pg Mean Corpuscular Hemoglobin Concent 33.6 g/dL Red Cell Distribution Width 14.2 % Platelet Count 225 10^3/uL Mean Platelet Volume 11.1 fL Neutrophils (%) (Auto) 89.8 % Lymphocytes (%) (Auto) 6.2 % Monocytes (%) (Auto) 3.8 % Neutrophils # (Auto) 9.7 10^3/uL Lymphocytes # (Auto) 0.7 10^3/uL Monocytes # (Auto) 0.4 10^3/uL Absolute Immature Granulocyte (auto 0.02 10^3 u/L Eosinophils % 0.0 % Basophils % 0.0 % Basophils # 0.0 10^3/uL Eosinophil Count 0.0 10^3/uL Sodium Level 139 mmol/L Potassium Level 3.4 mmol/L Chloride Level 108.0 mmol/L Carbon Dioxide Level 18.9 mmol/L Anion Gap 15.5 Blood Urea Nitrogen 21 mg/dL Creatinine 1.43 mg/dL Estimated GFR () 44.3 BUN/Creatinine Ratio 14.0 Glucose Level 143 mg/dL Hemoglobin A1c 5.8 % Calcium Level 9.2 mg/dL Total Bilirubin 0.3 mg/dL Aspartate Amino Transf (AST/SGOT) 19 U/L Alanine Aminotransferase (ALT/SGPT) 11 U/L Alkaline Phosphatase 110 U/L Total Protein 6.2 g/dL Albumin 2.7 g/dL Globulin 3.5 Triglycerides Level 64 mg/dL Cholesterol Level 223 mg/dL LDL Cholesterol, Calculated 163.2 VLDL Cholesterol 12.8 HDL Cholesterol 47 mg/dL Cholesterol Ratio (LDL/HDL) 4.141262 Percent Immature Gran (Cell Imm) 0.20 % Test 01/26/19 05:32 Differential Total Cells Counted 100 #CELLS Segmented Neutrophils 84 % Lymphocytes 14 % Monocytes 2 % Current Medications Medications (Trade) Dose Ordered Sig/Jacques PRN Reason Start Time Stop Time Status Last Admin Acetaminophen (Tylenol) 1,000 mg Q6HR PRN PAIN 01/26/19 00:30 02/25/19 00:29 01/26/19 00:33 Albuterol/ Ipratropium (Duoneb 0.5 Mg-3 Mg/3 ml Soln) 3 ml RTQ4 01/25/19 05:00 02/24/19 04:59 01/26/19 05:37 Aspirin (Aspirin) 81 mg DAILY 01/25/19 13:00 02/24/19 12:59 01/25/19 13:00 Azithromycin 500 mg/Sodium Chloride 250 ml @ 175 mls/hr Q24HRS 01/26/19 08:00 02/25/19 07:59 UNV Clopidogrel Bisulfate (Plavix) 75 mg DAILY 01/26/19 09:00 02/25/19 08:59 Dextrose (Dextrose 50%-Water Syringe) 25 ml STAT PRN HYPOGLYCEMIA 01/25/19 10:00 02/24/19 09:59 Enoxaparin Sodium (Lovenox) 40 mg DAILY 01/25/19 09:00 02/24/19 08:59 01/25/19 09:00 Hydralazine HCl (Apresoline) 10 mg Q4HR PRN HYPERTENSION 01/25/19 12:30 02/24/19 12:29 01/25/19 23:13 Ibuprofen (Motrin) 800 mg Q6H PRN PAIN 01/25/19 23:30 02/24/19 23:29 01/26/19 00:10 Insulin Glargine (Lantus) 20 unit HS 01/25/19 10:00 02/24/19 09:59 Future Hold 01/25/19 09:54 Insulin Human Regular (Humulin R) Give 30 minutes before meal ACHS 01/25/19 21:00 02/24/19 20:59 01/25/19 21:00 Levetiracetam (Keppra) 500 mg BID 01/25/19 12:31 02/24/19 12:30 01/25/19 21:05 Methylprednisolone Sodium Succinate (Solu-Medrol) 60 mg Q6 01/25/19 09:30 02/24/19 09:29 01/26/19 05:59 Morphine Sulfate (Duramorph) 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 Q4H PRN PAIN 01/26/19 03:00 02/25/19 02:59 UNV 01/26/19 02:59 Nifedipine (Procardia) 30 mg BID 01/25/19 12:00 02/24/19 11:59 01/25/19 21:05 Pantoprazole Sodium (Protonix Iv) 40 mg DAILY 01/25/19 09:00 02/24/19 08:59 01/25/19 09:00 Piperacillin Sod/ Tazobactam Sod 3.375 gm/Sodium Chloride 100 ml @ 100 mls/hr Q6H 01/25/19 02:30 02/24/19 02:29 01/26/19 02:30 Potassium Chloride (Klor-Con 10) 20 meq DAILY24 01/25/19 12:00 02/24/19 11:59 01/25/19 12:00 Propofol (Diprivan) 1,000 mg PRN PRN SEDATION 01/25/19 03:00 02/24/19 02:59 01/25/19 07:07 Sertraline HCl (Zoloft) 100 mg DAILY 01/26/19 09:00 02/25/19 08:59 Simvastatin (Zocor) 40 mg HS 01/25/19 21:00 02/24/19 20:59 01/25/19 21:05 Sodium Chloride 1,000 ml @ 125 mls/hr Q8H 01/25/19 03:30 02/24/19 03:29 01/26/19 00:18 Course Sepsis Screening Results: Posi: POSITIVE Sepsis Qualifier/Stage: SEPSIS RISK Duration or Total Time Spent w: 90 Vitals & review Data Vital Sign - Last 24 Hours 01/25/19 01/25/19 01/25/19 01/25/19 08:00 08:05 08:15 08:30 Temp 36.7 36.7 36.7 98.1 98.1 98.1 Pulse 58 57 62 67 Resp 15 17 16 B/P (MAP) 134/64 (87) 135/68 (90) 173/92 (119) Pulse Ox 99 99 99 99 FiO2 45 01/25/19 01/25/19 01/25/19 01/25/19 08:45 09:00 09:05 09:05 Temp 36.7 36.8 98.1 98.2 Pulse 56 56 58 55 Resp 15 15 15 15 B/P (MAP) 167/72 (103) 131/68 (89) Pulse Ox 100 99 97 99 01/25/19 01/25/19 01/25/19 01/25/19 09:15 09:30 09:45 10:00 Temp 36.8 36.8 36.8 36.8 98.2 98.2 98.2 98.2 Pulse 57 62 55 57 Resp 16 15 16 B/P (MAP) 141/70 (93) 136/59 (84) 145/64 (91) 133/67 (89) Pulse Ox 99 98 97 95 01/25/19 01/25/19 01/25/19 3/3/19 10:10 10:15 10:30 10:42 Temp 36.7 36.7 98.1 98.1 Pulse 55 56 58 Resp 15 17 16 B/P (MAP) 152/72 (98) 158/69 (98) 168/76 Pulse Ox 98 96 98 FiO2 30 01/25/19 01/25/19 01/25/19 01/25/19 10:45 11:00 11:15 11:30 Temp 36.7 36.7 36.7 36.8 98.1 98.1 98.1 98.2 Pulse 54 57 60 65 Resp 15 16 15 15 B/P (MAP) 162/64 (96) 168/76 (106) 172/74 (106) 178/79 (112) Pulse Ox 95 97 97 96 01/25/19 01/25/19 01/25/19 01/25/19 11:45 12:00 12:00 12:00 Temp 36.8 36.8 98.2 98.2 Pulse 66 56 66 Resp 16 18 B/P (MAP) 153/85 (107) 166/76 (106) Pulse Ox 96 99 96 O2 Delivery Mechanical Ventilator FiO2 30 01/25/19 01/25/19 01/25/19 01/25/19 12:15 12:30 12:40 12:40 Temp 36.9 36.9 98.4 98.4 Pulse 67 74 72 72 B/P (MAP) 175/79 (111) 174/84 (114) 180/83 Pulse Ox 95 95 94 01/25/19 01/25/19 01/25/19 01/25/19 12:40 12:40 12:45 13:00 Temp 36.9 98.4 Pulse 70 70 74 68 Resp 20 12 24 B/P (MAP) 176/84 (114) Pulse Ox 94 94 95 95 FiO2 30 28 01/25/19 01/25/19 01/25/19 01/25/19 13:00 13:15 13:16 13:20 Temp 37.0 37.1 37.1 98.6 98.8 98.8 Pulse 67 73 74 72 Resp 16 B/P (MAP) 180/83 (115) 167/71 (103) Pulse Ox 94 95 96 95 FiO2 28 3/3/19 01/25/19 01/25/19 01/25/19 13:30 13:45 13:53 14:00 Temp 37.2 37.3 37.3 37.3 99.0 99.1 99.1 99.1 Pulse 65 70 68 64 B/P (MAP) 148/60 (89) 139/101 (114) 147/64 (91) 149/69 (95) Pulse Ox 94 95 95 94 01/25/19 01/25/19 01/25/19 01/25/19 14:15 14:30 14:45 15:00 Temp 37.4 37.4 37.3 37.3 99.3 99.3 99.1 99.1 Pulse 66 77 76 75 Resp B/P (MAP) 147/67 (93) 125/60 (81) 119/60 (79) 124/64 (84) Pulse Ox 95 94 95 94 01/25/19 01/25/19 01/25/19 01/25/19 15:15 15:30 15:45 16:00 Temp 37.3 37.3 37.3 37.3 99.1 99.1 99.1 99.1 Pulse 83 79 77 78 Resp 18 B/P (MAP) 126/61 (82) 118/56 (76) 127/63 (84) 99/53 (68) Pulse Ox 94 93 95 95 01/25/19 01/25/19 01/25/19 01/25/19 16:00 16:15 16:30 16:45 Temp 37.3 37.3 37.3 99.1 99.1 99.1 Pulse 81 76 77 Resp 17 17 13 B/P (MAP) 132/63 (86) 147/59 (88) 143/86 (105) Pulse Ox 95 95 95 O2 Delivery Nasal Cannula O2 Flow Rate 2.00 01/25/19 01/25/19 01/25/19 01/25/19 17:00 17:06 17:15 17:30 Temp 37.3 37.3 37.3 37.3 99.1 99.1 99.1 99.1 Pulse 75 76 79 80 Resp 10 13 19 17 B/P (MAP) 146/115 (125) 142/72 (95) 146/75 (98) 128/66 (86) Pulse Ox 97 93 95 96 01/25/19 01/25/19 01/25/19 01/25/19 17:45 18:00 18:10 18:10 Temp 37.4 37.4 99.3 99.3 Pulse 80 80 75 80 Resp 18 19 16 16 B/P (MAP) 146/63 (90) 148/62 (90) Pulse Ox 95 96 97 98 01/25/19 01/25/19 01/25/19 01/25/19 18:15 18:30 19:00 19:00 Temp 37.3 37.3 37.3 99.1 99.1 99.1 Pulse 80 79 77 Resp 17 23 29 B/P (MAP) 151/65 (93) 165/73 (103) 154/112 (126) Pulse Ox 96 96 96 O2 Delivery Nasal Cannula O2 Flow Rate 2.00 01/25/19 01/25/19 01/25/19 01/25/19 19:15 19:30 19:45 20:00 Temp 37.2 37.2 37.3 99.0 99.0 99.1 Pulse 82 76 77 79 Resp 22 11 11 18 B/P (MAP) 146/76 (99) 147/56 (86) 159/78 (105) Pulse Ox 96 96 96 98 O2 Delivery Nasal Cannula O2 Flow Rate 2.00 FiO2 28 01/25/19 01/25/19 01/25/19 01/25/19 20:00 20:00 20:15 20:15 Temp 37.3 37.2 99.1 99.0 Pulse 79 80 81 80 Resp 18 18 18 12 B/P (MAP) 161/78 (105) Pulse Ox 98 96 99 98 01/25/19 01/25/19 01/25/19 01/25/19 20:30 20:45 21:00 21:05 Pulse 83 82 89 98 Resp 11 23 15 B/P (MAP) 165/77 (106) 142/65 (90) 153/62 Pulse Ox 99 98 98 01/25/19 01/25/19 01/25/19 01/25/19 21:15 21:30 21:45 22:00 Pulse 91 95 97 100 Resp 18 18 40 15 B/P (MAP) 153/62 (92) 173/97 (122) Pulse Ox 98 99 97 95 01/25/19 01/25/19 01/25/19/3/19 22:15 22:30 22:45 23:00 Pulse 96 95 91 96 Resp 14 20 15 19 B/P (MAP) 162/83 (109) 150/79 (102) Pulse Ox 98 97 99 97 01/25/19 01/25/19 01/25/19 01/25/19 23:00 23:13 23:15 23:30 Pulse 96 93 101 Resp 21 20 B/P (MAP) 160/74 160/74 (102) Pulse Ox 98 97 O2 Delivery Nasal Cannula O2 Flow Rate 2.00 01/25/19 01/26/19 01/26/19 01/26/19 23:45 00:00 00:15 00:45 Pulse 92 95 101 110 Resp 14 20 12 12 B/P (MAP) 138/61 (86) Pulse Ox 96 97 96 93 01/26/19 01/26/19 01/26/19 01/26/19 01:00 01:10 01:15 01:21 Pulse 115 107 106 102 Resp 16 28 24 21 B/P (MAP) 171/96 (121) 159/86 (110) Pulse Ox 93 88 91 89 01/26/19 01/26/19 01/26/19 01/26/19 01:30 01:30 01:45 02:00 Pulse 114 118 116 122 Resp 18 30 19 B/P (MAP) 176/94 (121) 171/96 Pulse Ox 93 88 92 01/26/19 01/26/19 01/26/19 01/26/19 02:00 02:15 02:30 02:45 Pulse 117 123 118 109 Resp 14 16 17 23 B/P (MAP) 145/52 (83) 119/62 (81) Pulse Ox 92 91 89 90 01/26/19 01/26/19 01/26/19 01/26/19 03:00 03:15 03:30 03:45 Pulse 116 117 111 112 Resp 24 20 17 11 B/P (MAP) 137/70 (92) 146/76 (99) 124/59 (80) 126/59 (81) Pulse Ox 88 86 86 86 01/26/19 01/26/19 01/26/19 01/26/19 04:00 04:00 04:15 04:30 Temp 99.4 99.4 Pulse 107 102 102 Resp 17 16 15 B/P (MAP) 123/50 (74) 116/52 (73) 120/59 (79) Pulse Ox 86 89 88 O2 Delivery Nasal Cannula O2 Flow Rate 2.00 01/26/19 01/26/19 01/26/19 01/26/19 04:45 04:45 05:00 05:00 Pulse 106 103 105 104 Resp 15 18 16 16 B/P (MAP) 125/59 (81) 119/49 (72) Pulse Ox 89 88 89 93 01/26/19 01/26/19 01/26/19 01/26/19 05:15 05:30 05:45 06:00 Pulse 105 102 89 89 Resp 16 19 17 14 B/P (MAP) 119/56 (77) 127/64 (85) 127/56 (79) 126/59 (81) Pulse Ox 92 89 91 92 Intake and Output 01/25/19 01/25/19 01/26/19 14:59 22:59 06:59 Intake Total 2244 ml Output Total 800 ml 400 ml Balance -800 ml 1844 ml Laboratory Tests Test 01/25/19 01:10 01/25/19 01:15 01/25/19 01:31 01/25/19 02:12 Blood Gas Sample Site LEFT RADIAL ARTERY Blood Gas pH 7.188 Blood Gas PCO2 46.6 mmHg Blood Gas PO2 179.8 mmHg Blood Gas HCO3 17.3 mmol/L Blood Gas Base Excess -10.7 mmol/L Jose Test POSITIVE Arterial Blood Oxygen Saturation 98.5 % Deoxyhemoglobin 1.4 % Carboxyhemoglobin 5.0 % Methemoglobin 0.4 % Total Hemoglobin 13.3 % Total Oxygen Concentration 17.8 % Lactic Acid (Blood Gas) 3.7 MMOL/L Blood Gas Temperature 37.0 Oxygen Delivery Method (LAB) VENT Blood Gas Vent Mode SIMV Blood Gas Vent Rate 15 FiO2 0.75 % Blood Gas Tidal Volume 450 ML Blood Gas PEEP 5.0 CMH2O Blood Gas Pressure Support 10 CMH2O Bicarbonate 18.7 mmol/L Sodium Level 142 mmol/L Potassium Level 3.6 mmol/L Chloride Level 105.0 mmol/L Carbon Dioxide Level 21.1 mmol/L Anion Gap 19.5 Blood Urea Nitrogen 19 mg/dL Creatinine 1.41 mg/dL Estimated GFR () 45.0 BUN/Creatinine Ratio 13.0 Glucose Level 245 mg/dL Calcium Level 9.4 mg/dL Total Bilirubin 0.2 mg/dL Aspartate Amino Transf (AST/SGOT) 15 U/L Alanine Aminotransferase (ALT/SGPT) 10 U/L Alkaline Phosphatase 158 U/L Total Creatine Kinase 59 U/L Troponin I 0.76 ng/mL Total Protein 7.3 g/dL Albumin 3.1 g/dL Globulin 4.2 White Blood Count 9.0 10^3/uL Red Blood Count 4.17 10^6/uL Hemoglobin 12.4 g/dL Hematocrit 37.6 % Mean Corpuscular Volume 90.2 fL Mean Corpuscular Hemoglobin 29.7 pg Mean Corpuscular Hemoglobin Concent 33.0 g/dL Red Cell Distribution Width 14.0 % Platelet Count 303 10^3/uL Mean Platelet Volume 10.9 fL Neutrophils (%) (Auto) 46.5 % Lymphocytes (%) (Auto) 38.2 % Monocytes (%) (Auto) 10.0 % Neutrophils # (Auto) 4.2 10^3/uL Lymphocytes # (Auto) 3.4 10^3/uL Monocytes # (Auto) 0.9 10^3/uL Absolute Immature Granulocyte (auto 0.06 10^3 u/L Eosinophils % 4.0 % Basophils % 0.6 % Basophils # 0.1 10^3/uL Eosinophil Count 0.4 10^3/uL Percent Immature Gran (Cell Imm) 0.70 % Urine Collection Type CCMS Urine Color YELLOW Urine Appearance CLOUDY Urine Bilirubin NEGATIVE MG/DL Urine Ketones NEGATIVE Urine Specific [place] 1.025 Urine pH 5 Urine Protein 500 mg/dL Urine Urobilinogen NORMAL Urine Nitrate NEGATIVE Urine Leukocyte Esterase NEGATIVE Urine Blood 10 TR Urine RBC NONE SEEN RBC/HPF Urine WBC 5-10 WBC/HPF Urine Squamous Epithelial Cells MODERATE #/HPF Urine Amorphous Sediment LARGE Urine Bacteria FEW Urine Other MUCUS 1+ #/HPF Urine Glucose NORMAL Test 01/25/19 04:30 01/25/19 08:00 01/25/19 13:10 01/25/19 13:35 Blood Gas Sample Site LEFT BRACHIAL ARTRY LEFT BRACHIAL ARTRY Blood Gas pH 7.349 7.331 Blood Gas PCO2 32.0 mmHg 35.6 mmHg Blood Gas PO2 103.3 mmHg 107.4 mmHg Blood Gas HCO3 17.2 mmol/L 18.4 mmol/L Blood Gas Base Excess -7.4 mmol/L -6.8 mmol/L Jose Test N/A N/A Arterial Blood Oxygen Saturation 96.9 % 96.8 % Deoxyhemoglobin 3.0 % 3.2 % Carboxyhemoglobin 1.6 % 0.6 % Methemoglobin 0.3 % 0.3 % Total Hemoglobin 11.7 % 11.3 % Total Oxygen Concentration 15.8 % 15.4 % Lactic Acid (Blood Gas) 0.8 MMOL/L 1.2 MMOL/L Blood Gas Temperature 37.0 37 Oxygen Delivery Method (LAB) VENT Blood Gas Vent Mode SIMV SIMV Blood Gas Vent Rate 15 15 FiO2 0.45 % 45 % Blood Gas Tidal Volume 450 ML 450 ML Blood Gas PEEP 5.0 CMH2O 5 CMH2O Blood Gas Pressure Support 10 CMH2O 10 CMH2O Bicarbonate 18.2 mmol/L 19.5 mmol/L White Blood Count 10.6 10^3/uL Red Blood Count 3.98 10^6/uL Hemoglobin 11.8 g/dL Hematocrit 35.2 % Mean Corpuscular Volume 88.4 fL Mean Corpuscular Hemoglobin 29.6 pg Mean Corpuscular Hemoglobin Concent 33.5 g/dL Red Cell Distribution Width 14.2 % Platelet Count 242 10^3/uL Mean Platelet Volume 11.1 fL Neutrophils (%) (Auto) 90.9 % Lymphocytes (%) (Auto) 6.2 % Monocytes (%) (Auto) 1.7 % Neutrophils # (Auto) 9.7 10^3/uL Lymphocytes # (Auto) 0.7 10^3/uL Monocytes # (Auto) 0.2 10^3/uL Absolute Immature Granulocyte (auto 0.03 10^3 u/L Eosinophils % 0.6 % Basophils % 0.3 % Basophils # 0.0 10^3/uL Eosinophil Count 0.1 10^3/uL Troponin I 1.27 ng/mL Pro-B-Type Natriuretic Peptide 38674 pg/mL Percent Immature Gran (Cell Imm) 0.30 % Differential Total Cells Counted 100 #CELLS Segmented Neutrophils 92 % Band Neutrophils 1 % Lymphocytes 7 % Platelet Morphology NORMAL Poikilocytosis 1+ Anisocytosis 1+ Test 01/25/19 18:50 01/26/19 01:31 01/26/19 04:50 01/26/19 04:58 Troponin I 0.90 ng/mL Vancomycin Level Trough 22.8 ug/mL Blood Gas Sample Site RT BRACIAL ARTERY Blood Gas pH 7.386 Blood Gas PCO2 26.3 mmHg Blood Gas PO2 73.0 mmHg Blood Gas HCO3 15.4 mmol/L Blood Gas Base Excess -8.2 mmol/L Jose Test N/A Arterial Blood Oxygen Saturation 93.5 % Deoxyhemoglobin 6.4 % Carboxyhemoglobin 1.1 % Methemoglobin 0.5 % Total Hemoglobin 11.0 % Total Oxygen Concentration 14.3 % Lactic Acid (Blood Gas) 1.9 MMOL/L Blood Gas Temperature 37.0 Oxygen Delivery Method (LAB) NASAL CANNULA FiO2 0.32 % Bicarbonate 16.2 mmol/L White Blood Count 10.8 10^3/uL Red Blood Count 3.42 10^6/uL Hemoglobin 10.3 g/dL Hematocrit 30.7 % Mean Corpuscular Volume 89.8 fL Mean Corpuscular Hemoglobin 30.1 pg Mean Corpuscular Hemoglobin Concent 33.6 g/dL Red Cell Distribution Width 14.2 % Platelet Count 225 10^3/uL Mean Platelet Volume 11.1 fL Neutrophils (%) (Auto) 89.8 % Lymphocytes (%) (Auto) 6.2 % Monocytes (%) (Auto) 3.8 % Neutrophils # (Auto) 9.7 10^3/uL Lymphocytes # (Auto) 0.7 10^3/uL Monocytes # (Auto) 0.4 10^3/uL Absolute Immature Granulocyte (auto 0.02 10^3 u/L Eosinophils % 0.0 % Basophils % 0.0 % Basophils # 0.0 10^3/uL Eosinophil Count 0.0 10^3/uL Sodium Level 139 mmol/L Potassium Level 3.4 mmol/L Chloride Level 108.0 mmol/L Carbon Dioxide Level 18.9 mmol/L Anion Gap 15.5 Blood Urea Nitrogen 21 mg/dL Creatinine 1.43 mg/dL Estimated GFR () 44.3 BUN/Creatinine Ratio 14.0 Glucose Level 143 mg/dL Hemoglobin A1c 5.8 % Calcium Level 9.2 mg/dL Total Bilirubin 0.3 mg/dL Aspartate Amino Transf (AST/SGOT) 19 U/L Alanine Aminotransferase (ALT/SGPT) 11 U/L Alkaline Phosphatase 110 U/L Total Protein 6.2 g/dL Albumin 2.7 g/dL Globulin 3.5 Triglycerides Level 64 mg/dL Cholesterol Level 223 mg/dL LDL Cholesterol, Calculated 163.2 VLDL Cholesterol 12.8 HDL Cholesterol 47 mg/dL Cholesterol Ratio (LDL/HDL) 4.173611 Percent Immature Gran (Cell Imm) 0.20 % Test 01/26/19 05:32 Differential Total Cells Counted 100 #CELLS Segmented Neutrophils 84 % Lymphocytes 14 % Monocytes 2 % Current Medications Medications (Trade) Dose Ordered Sig/Jacques PRN Reason Start Time Stop Time Status Last Admin Acetaminophen (Tylenol) 1,000 mg Q6HR PRN PAIN 01/26/19 00:30 02/25/19 00:29 01/26/19 00:33 Albuterol/ Ipratropium (Duoneb 0.5 Mg-3 Mg/3 ml Soln) 3 ml RTQ4 01/25/19 05:00 02/24/19 04:59 01/26/19 05:37 Aspirin (Aspirin) 81 mg DAILY 01/25/19 13:00 02/24/19 12:59 01/25/19 13:00 Azithromycin 500 mg/Sodium Chloride 250 ml @ 175 mls/hr Q24HRS 01/26/19 08:00 02/25/19 07:59 UNV Clopidogrel Bisulfate (Plavix) 75 mg DAILY 01/26/19 09:00 02/25/19 08:59 Dextrose (Dextrose 50%-Water Syringe) 25 ml STAT PRN HYPOGLYCEMIA 01/25/19 10:00 02/24/19 09:59 Enoxaparin Sodium (Lovenox) 40 mg DAILY 01/25/19 09:00 02/24/19 08:59 01/25/19 09:00 Hydralazine HCl (Apresoline) 10 mg Q4HR PRN HYPERTENSION 01/25/19 12:30 02/24/19 12:29 01/25/19 23:13 Ibuprofen (Motrin) 800 mg Q6H PRN PAIN 01/25/19 23:30 02/24/19 23:29 01/26/19 00:10 Insulin Glargine (Lantus) 20 unit HS 01/25/19 10:00 02/24/19 09:59 Future Hold 01/25/19 09:54 Insulin Human Regular (Humulin R) Give 30 minutes before meal ACHS 01/25/19 21:00 02/24/19 20:59 01/25/19 21:00 Levetiracetam (Keppra) 500 mg BID 01/25/19 12:31 02/24/19 12:30 01/25/19 21:05 Methylprednisolone Sodium Succinate (Solu-Medrol) 60 mg Q6 01/25/19 09:30 02/24/19 09:29 01/26/19 05:59 Morphine Sulfate (Duramorph) 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 Q4H PRN PAIN 01/26/19 03:00 02/25/19 02:59 UNV 01/26/19 02:59 Nifedipine (Procardia) 30 mg BID 01/25/19 12:00 02/24/19 11:59 01/25/19 21:05 Pantoprazole Sodium (Protonix Iv) 40 mg DAILY 01/25/19 09:00 02/24/19 08:59 01/25/19 09:00 Piperacillin Sod/ Tazobactam Sod 3.375 gm/Sodium Chloride 100 ml @ 100 mls/hr Q6H 01/25/19 02:30 02/24/19 02:29 01/26/19 02:30 Potassium Chloride (Klor-Con 10) 20 meq DAILY24 01/25/19 12:00 02/24/19 11:59 01/25/19 12:00 Propofol (Diprivan) 1,000 mg PRN PRN SEDATION 01/25/19 03:00 02/24/19 02:59 01/25/19 07:07 Sertraline HCl (Zoloft) 100 mg DAILY 01/26/19 09:00 02/25/19 08:59 Simvastatin (Zocor) 40 mg HS 01/25/19 21:00 02/24/19 20:59 01/25/19 21:05 Sodium Chloride 1,000 ml @ 125 mls/hr Q8H 01/25/19 03:30 02/24/19 03:29 01/26/19 00:18 Sepsis Infection Criteria Pres: Documented Infection LEVEL 1 SEPSIS INFECTION CRITE: Flu-Pneumonia, Urinary Tract Infection LEVEL 2-SIRS (LIST ALL THAT AP: [id number] Cardiovascular Evidence: Not Assessed or None Hematologic Evidence: None/Not assessed Hepatic Evidence: None/Not assessed Metabolic Evidence: None/Not assessed Neurological Evidence: None/Not assessed Respiratory Evidence: Need for O2 to keep>90% Renal Evidence: None/Not assessed O2 Sat by Pulse Oximetry: 93 Respiratory End-tidal CO2: 22 Oxygen Flow Rate: 3.00 Plan Discharge Date: Feb 01, 2019 Dicharge DX: Respiratory failure, Pneumonia, NSTEMI, Abdominal Hematoma, LAVELL Discharge Disposition: Stable Plan ok to d/c to [facility] medications: per med rec list Diet: ADA, Low salt Activity: ambulate with assistance F/U with Cardiology within 1-2 weeks Return to care for worsening/concerning symptoms MAGUI CONNER MD Feb 01, 2019 09:41
--- NOTE | 2019-02-01 10:14 | NUR ---
REPORT REPORT CALLED TO SHIAR AT [facility].
[2019-02-01 10:42] VITALS: BP 161/85
--- NOTE | 2019-02-01 10:42 | NUR ---
D/C D/C INSTRUCTIONS GIVEN TO PT AND [facility]. RECEIVED WRITTEN AND VERBALIZED UNDERSTANDING. NO S/S OF DISTRESS NOTED. PT OFF OF FLOOR VIA W/C WITH [facility] TO VAN TO GO TO [facility]. RELINQUISHED CARE OF PT.
[2019-02-01] MEDS ORDERED: OMNICEF PO SCH (21:00)
--- NOTE | 2019-02-03 07:22 | PNH ---
DATE: 02/01/2019 SUBJECTIVE: The patient is doing well. She will be going home on 02/02/2019. OBJECTIVE: VITAL SIGNS: Stable. EXTREMITIES: No edema is noted. LUNGS: Clear. ABDOMEN: Hematoma regressing in the abdomen. LABORATORY DATA: Hemoglobin 9.5. White count is 13.1 and electrolytes have shown improvement in her renal function, 1.1 creatinine, BUN of 13, 3.5 potassium and chest x-ray shows clearing of the infiltrates and effusions. ASSESSMENT: She will be going home. She will be discharged by the hospitalist on 02/02/2019 and I have gone over the discharge medication and they are aspirin 81 mg once daily, Lipitor 40 mg once daily, Coreg 12.5 mg twice a day, cefdinir 300 mg twice a day, hydralazine 25 mg 3 times a day, Lantus insulin 20 units daily, nitroglycerin on p.r.n. basis, Protonix 40 mg once a day, Entresto one tablet twice a day, Brilinta 90 mg twice a day, albuterol nebulizer ____ 6 hours and Keppra 500 mg twice a day, Singulair 10 mg once a day, omeprazole 40 mg once a day, potassium 20 mEq once a day, Zoloft 100 mg once a day, trazodone 50 mg at bedtime, Breo Ellipta 1 puff daily and we will ____ and see me at a later date. Elda Otero MD DR: GLYNN/sania JOB# [id number]
== END 2019-02-01 10:42 | DRG 246 ==
LOC: ER 01:05 → EDBD 01:05 → ICU 03:24 → MS 01-29 15:00 → EDPENDDISDT 02-01 03:40 → EDPENDDISTM 02-01 10:42
PROVIDERS: ADMIT Internal Medicine; ATTEND Internal Medicine
PROC: 5A1935Z Respiratory Ventilation, Less than 24 Consecutive Hours (ICD-10-PCS; principal; 2019-01-25)
PROC: 027034Z Dilation of Coronary Artery, One Artery with Drug-eluting Intraluminal Device, Percutaneous Approach (ICD-10-PCS; 2019-01-27)
PROC: 4A023N7 Measurement of Cardiac Sampling and Pressure, Left Heart, Percutaneous Approach (ICD-10-PCS; 2019-01-27)
PROC: B2111ZZ Fluoroscopy of Multiple Coronary Arteries using Low Osmolar Contrast (ICD-10-PCS; 2019-01-27)
PROC: B2151ZZ Fluoroscopy of Left Heart using Low Osmolar Contrast (ICD-10-PCS; 2019-01-27)
PROC: 30233K1 Transfusion of Nonautologous Frozen Plasma into Peripheral Vein, Percutaneous Approach (ICD-10-PCS; 2019-01-27)
PROC: 30233N1 Transfusion of Nonautologous Red Blood Cells into Peripheral Vein, Percutaneous Approach (ICD-10-PCS; 2019-01-27)
DX: I21.4 Non-ST elevation (NSTEMI) myocardial infarction (principal); J18.1 Lobar pneumonia, unspecified organism; J96.01 Acute respiratory failure with hypoxia; I50.43 Acute on chronic combined systolic (congestive) and diastolic (congestive) heart failure; N17.0 Acute kidney failure with tubular necrosis; I13.0 Hypertensive heart and chronic kidney disease with heart failure and stage 1 through stage 4 chronic kidney disease, or unspecified chronic kidney disease; E87.2 Acidosis; J44.0 Chronic obstructive pulmonary disease with (acute) lower respiratory infection; J44.1 Chronic obstructive pulmonary disease with (acute) exacerbation; N13.30 Unspecified hydronephrosis; I25.10 Atherosclerotic heart disease of native coronary artery without angina pectoris; N18.2 Chronic kidney disease, stage 2 (mild); E11.65 Type 2 diabetes mellitus with hyperglycemia; E11.51 Type 2 diabetes mellitus with diabetic peripheral angiopathy without gangrene; R74.8 Abnormal levels of other serum enzymes; K21.9 Gastro-esophageal reflux disease without esophagitis; J38.3 Other diseases of vocal cords; F32.9 Major depressive disorder, single episode, unspecified; D50.0 Iron deficiency anemia secondary to blood loss (chronic); E11.22 Type 2 diabetes mellitus with diabetic chronic kidney disease; G40.909 Epilepsy, unspecified, not intractable, without status epilepticus; Z60.2 Problems related to living alone; J30.9 Allergic rhinitis, unspecified; I95.9 Hypotension, unspecified; S30.1XXA Contusion of abdominal wall, initial encounter; X58.XXXA Exposure to other specified factors, initial encounter; I25.5 Ischemic cardiomyopathy; I25.2 Old myocardial infarction; Z90.710 Acquired absence of both cervix and uterus; Z90.49 Acquired absence of other specified parts of digestive tract; Z88.5 Allergy status to narcotic agent; Z79.02 Long term (current) use of antithrombotics/antiplatelets; Z79.4 Long term (current) use of insulin; Z79.899 Other long term (current) drug therapy; Z79.82 Long term (current) use of aspirin; Z86.73 Personal history of transient ischemic attack (TIA), and cerebral infarction without residual deficits; Z87.891 Personal history of nicotine dependence; Y93.89 Activity, other specified; Y92.89 Other specified places as the place of occurrence of the external cause; Y99.8 Other external cause status
CPT/HCPCS: 36415; 36430; 36600; 71045; 71046; 74176; 80053; 80061; 80202; 81000; 82550; 82803; 82948; 83036; 83880; 84443; 84484; 85014; 85018; 85025; 85027; 85362; 85370; 85379; 85610; 85730; 86885; 86900; 86901; 86921; 87040; 87070; 87086; 87205; 87230; 92610; 93005; 93307; 93458; 94002; 94640; 97161; 99152; 99153; 99291; A4338; C1874; C1894; C9113; C9600; G0378; J0360; J0456; J0583; J0696; J1644; J1650; J1815; J1940; J2060; J2250; J2270; J2405; J2543; J2930; J3010; J3370; J3490; J7030; J7040; J7050; J7613; J7620; J7627; P9016; Q9967; 97116-GP; 97530-GP; C1769; C1887; J3480; P9017; Q9966

== ENCOUNTER 2019-02-12 18:41 | Emergency (ER) | payer MEDICARE ==
[~2019-02-12] VITALS: Ht 162.6 cm; Wt 75.4 kg
[2019-02-12] VITALS (20 sets, daily range): BP systolic 132–165; BP diastolic 64–109
[~2019-02-12 18:41] MED LIST changes: +ASPI-655 PO; +ATOR40TA PO; +CARV12.5 PO; +CEFD300C2 PO; +HYDR-3194 PO; +INSU100V8 SQ; +NITR0.4T SL; +PANT40TA3 PO; +SACU1TAB PO; +TICA90TA PO
[2019-02-12] MEDS ORDERED: SOLU-MEDROL ONE (18:53)
[2019-02-12] MEDS ORDERED: SOLU-MEDROL IV STA (18:54)
--- NOTE | 2019-02-12 18:59 | ER.PDOC ---
General Chief Complaint: Requesting Medical Care Stated Complaint: SOB Time seen by MD: 18:57 Source: patient Exam Limitations: no limitations History of Present Illness Initial Comments SOB today, patient recently discharged from Hospital 11 days ago for Pneumonia and COPD exacerbation. Severity: moderate Prior Episodes/Possible Cause: frequent episodes Modifying Factors: improves with albuterol inhaler Associated Symptoms: cough, wheezing Prior symptoms/Treatment: Similar symptoms previous, Recenly Seen, Treated by Doctor, Recently Hospitalized Allergies: Coded Allergies: codeine (Verified Allergy, Unknown, 03/29/17) Home Meds Active Scripts Cefdinir (CEFDINIR) 300 Mg Capsule, 300 MG PO BID for 3 Days, #6 CAPSULE 0 Refills Prov:MAGUI CONNER MD 02/01/19 Pantoprazole Sodium (PROTONIX) 40 Mg Tablet.dr, 40 MG PO DAILY for 30 Days Prov:TERRENCE TORRES MD 01/30/19 Insulin Glargine,Hum.rec.anlog (LANTUS) 100 Unit/1 Ml Vial, 20 UNIT SQ HS for 14 Days, VIAL Prov:TERRENCE TORRES MD 01/30/19 Aspirin (ASPIRIN EC) 81 Mg Tablet.dr, 81 MG PO DAILY, #30 Prov:TERRENCE TORRES MD 01/30/19 Sacubitril/Valsartan (Entresto 24 mg-26 mg Tablet) 1 Each Tablet, 1 EACH PO BID , #60 TABLET Prov:TERRENCE TORRES MD 01/30/19 Nitroglycerin (NITROSTAT) 0.4 Mg Tab.subl, 0.4 MG SL PRN PRN for CHEST PAIN for 30 Days Prov:TERRENCE TORRES MD 01/30/19 Hydralazine Hcl (HYDRALAZINE HCL) 25 Mg Tablet, 25 MG PO TID, #90 TABLET Prov:TERRENCE TORRES MD 01/30/19 Carvedilol 12.5MG (COREG 12.MG) 12.5 Mg Tablet, 12.5 MG PO BID for 30 Days, TABLET Prov:TERRENCE TORRES MD 01/30/19 Atorvastatin 40MG (LIPITOR 40MG) 40 Mg Tablet, 40 MG PO HS for 30 Days, TABLET Prov:TERRENCE TORRES MD 01/30/19 Ticagrelor (BRILINTA) 90 Mg Tablet, 90 MG PO BID, #30 TABLET Prov:TERRENCE TORRES MD 01/30/19 Potassium Chloride (POTASSIUM CHLORIDE) 20 Meq Tab.er.prt, 20 MEQ PO DAILY24, # 30 TAB 1 Refill Prov:JAYLEN WILLOUGHBY MD 05/15/18 Levetiracetam (KEPPRA) 500 Mg Tablet, 500 MG PO BID for 30 Days, #60 TABLET 5 Refills Prov:JAIME MATA MD 04/01/17 Reported Medications Umeclidinium Brm/Vilanterol Tr (Anoro Ellipta 62.5-25 Mcg INH) 1 Each Disk.w.dev , 1 EACH IH DAILY24 05/07/18 Albuterol Sulfate (VENTOLIN HFA) 18 Gm Hfa.aer.ad, 18 GM IH Q6HR for SOB 04/16/18 Montelukast Sodium (MONTELUKAST SODIUM) 10 Mg Tablet, 1 TAB PO HS, #30 TAB 5 Refills 04/16/18 Omeprazole (OMEPRAZOLE) 40 Mg Capsule.dr, 40 MG PO DAILY24, #1 04/16/18 Trazodone Hcl (TRAZODONE HCL) 50 Mg Tablet, 1.5 TAB PO HS, #30 TAB 1 Refill 03/29/17 Sertraline Hcl (ZOLOFT) 100 Mg Tablet, 1 TAB PO DAILY, #30 TAB 5 Refills 03/29/17 Past Medical History Medical History: congestive heart failure, COPD Surgical History: cholecystectomy Social History Drug Use: none Review of Systems Constitutional: no symptoms reported EENTM: no symptoms reported Respiratory: see HPI Cardiovascular: no symptoms reported Gastrointestinal: no symptoms reported All Other Systems: Reviewed and Negative Physical Exam General Appearance: Moderate Distress HEENT: Normal ENT Inspection Neck: Non-Tender, Full Range of Motion, Supple, Normal Inspection Respiratory: chest non-tender, respiratory distress, decreased breath sounds, prolonged expirations, wheezing, expiration Cardiovascular: Normal Peripheral Pulses, Regular Rate, Rhythm, No Edema, No Gallop, No JVD, No Murmur, Tachycardia Gastrointestinal: Normal Bowel Sounds, No Organomegaly, No Pulsatile Mass, Non Tender, Soft Extremities: Normal Range of Motion, Non-Tender, Normal Inspection, No Calf Tenderness, Normal Capillary Refill, Pedal Edema Neurologic/Psychiatric: filling technician II-XII NML as Tested Skin: Normal Color Results/Orders Results/Orders Orders - KEILA KWOK MD Cta Chest (02/12/19 19:51) Troponin I (02/12/19 21:21) Furosemide (Lasix) (02/13/19 09:00) Furosemide (Lasix) (02/12/19 21:48) 0.9 % Sodium Chloride (Ns 100ml) (02/12/19 22:25) Ceftriaxone Sodium (Rocephin) (02/12/19 22:25) Aspirin (Aspirin) (02/12/19 22:25) Ekg-Routine (02/12/19 22:27) Aspirin (Aspirin) (02/12/19 22:27) Ceftriaxone Sodium (Rocephin) (02/12/19 22:27) Nitroglycerin (Nitrostat) (02/12/19 23:08) Nitroglycerin (Nitro-Dur 0.4mg Patch) (02/12/19 23:08) Nitroglycerin (Nitro-Dur 0.4mg Patch) (02/12/19 23:18) Vital Signs Date Time Temp Pulse Resp B/P (MAP) Pulse Ox O2 Delivery O2 Flow Rate FiO2 02/12/19 22:37 98.0 98.0 02/12/19 22:15 87 20 147/72 (97) 92 Nasal Canula 4.00 02/12/19 22:05 148/88 02/12/19 22:00 87 29 151/97 (115) 95 Nasal Canula 4.00 02/12/19 21:45 94 18 148/88 (108) 92 Nasal Canula 4.00 02/12/19 21:15 86 17 148/84 (105) 95 Bi Pap 02/12/19 21:00 75 20 148/70 (96) 96 Bi Pap 02/12/19 20:45 78 16 140/69 (92) 95 Bi Pap 02/12/19 20:30 75 21 149/77 (101) 94 Bi Pap 02/12/19 20:26 81 18 149/77 (101) 94 Bi Pap 02/12/19 20:11 83 20 144/74 (97) 93 Bi Pap 02/12/19 19:56 74 22 139/64 (89) 92 Bi Pap 02/12/19 19:41 78 18 142/66 (91) 95 Bi Pap 02/12/19 19:26 90 22 145/69 (94) 94 Bi Pap 02/12/19 19:22 101 26 92 S/T 60 02/12/19 19:11 88 25 160/109 (126) 93 Bi Pap 02/12/19 18:41 97.0 106 40 97.0 02/12/19 18:41 97.0 106 40 90 97.0 02/12/19 18:41 97.0 106 40 165/98 (120) 90 97.0 02/01/19 10:42 93 02/01/19 08:40 98 Administered Medications Medications (Trade) Dose Ordered Sig/Jacques Route PRN Reason Start Time Stop Time Status Last Admin Dose Admin Aspirin (Aspirin) 325 mg STAT STAT PO 02/12/19 22:27 02/12/19 22:28 UNV 02/12/19 22:37 325 MG Ceftriaxone Sodium 1000 mg/ Sodium Chloride 100 ml @ 100 mls/hr Q6 STAT IV 02/12/19 22:27 02/12/19 23:26 UNV 02/12/19 22:37 100 MLS/HR Furosemide (Lasix) 40 mg DAILY IV 02/13/19 09:00 03/15/19 08:59 02/12/19 22:05 40 MG Methylprednisolone Sodium Succinate (Solu-Medrol) 125 mg STAT STAT IV 02/12/19 18:54 02/12/19 18:56 DC 02/12/19 19:00 125 MG Nitroglycerin (Nitro-Dur 0.4mg Patch) 1 each STAT STAT TD 02/12/19 23:08 02/12/19 23:10 DC 02/12/19 23:27 1 EACH Nitroglycerin (Nitrostat) 0.4 mg STAT STAT SL 02/12/19 23:08 02/12/19 23:10 DC 02/12/19 23:27 0.4 MG Laboratory Tests Test 02/12/19 18:52 02/12/19 19:03 02/12/19 19:08 02/12/19 21:46 Blood Gas Sample Site RT BRACIAL ARTERY Blood pH 7.255 (7.350-7.450) Blood Gas PCO2 47.6 mmHg (35.0-45.0) H Blood Gas PO2 69.1 mmHg (75.0-100.0) L Blood Gas HCO3 20.6 mmol/L (22.0-26.0) L Blood Gas Base Excess -6.4 mmol/L (-2.0-2.0) L Jose Test N/A Arterial Blood Oxygen Saturation 90.1 % (95-) L Deoxyhemoglobin 9.6 % (0.2-0.6) H Carboxyhemoglobin 2.5 % (0.5-1.5) H Methemoglobin 0.5 % (0.2-0.6) Total Hemoglobin 10.9 % (13.5-17.5) L Total Oxygen Concentration 13.5 % (13.5-17.5) Lactic Acid (Blood Gas) 1.7 MMOL/L (0.5-1.0) H Blood Gas Temperature 37 Oxygen Delivery Method NON-REBREATHER MASK FiO2 80 % (20-101) Bicarbonate 22.1 mmol/L (23-27) L White Blood Count 11.2 10^3/uL (4.5-11.0) H Red Blood Count 3.32 10^6/uL (4.00-5.20) L Hemoglobin 9.9 g/dL (12.0-15.0) L Hematocrit 31.0 % (36.0-46.0) L Mean Corpuscular Volume 93.4 fL (78-100) Mean Corpuscular Hemoglobin 29.8 pg (26-34) Mean Corpuscular Hemoglobin Concent 31.9 g/dL (33-37) L Red Cell Distribution Width 14.4 % (11.5-14.5) Platelet Count 578 10^3/uL (150-400) H Mean Platelet Volume 10.5 fL (7.8-11.0) Neutrophils (%) (Auto) 59.3 % (41.0-85.0) Lymphocytes (%) (Auto) 18.9 % (24.0-44.0) L Monocytes (%) (Auto) 9.7 % (5.0-12.0) Neutrophils # (Auto) 6.7 10^3/uL (1.8-7.7) Lymphocytes # (Auto) 2.1 10^3/uL (1.0-4.8) Monocytes # (Auto) 1.1 10^3/uL (0.3-0.8) H Absolute Immature Granulocyte (auto 0.04 10^3 u/L (0-2) Eosinophils % 10.6 % (0.0-5.0) H Basophils % 1.1 % (0.0-0.2) H Basophils # 0.1 10^3/uL (0.0-0.1) Eosinophil Count 1.2 10^3/uL (0.0-0.2) H D-Dimer 4.69 mg/L (0.19-0.49) *H Sodium Level 139 mmol/L (132-145) Potassium Level 4.3 mmol/L (3.6-5.2) Chloride Level 106.0 mmol/L (96-109) Carbon Dioxide Level 21.3 mmol/L (20.0-32) Anion Gap 16.0 Blood Urea Nitrogen 14 mg/dL (7-18) Creatinine 1.26 mg/dL (0.59-1.40) Estimated GFR () 51.3 (>/=60) BUN/Creatinine Ratio 11.0 Glucose Level 232 mg/dL (70-110) H Calcium Level 9.4 mg/dL (8.4-10.5) Total Bilirubin 0.5 mg/dL (0.2-1.0) Aspartate Amino Transferase (AST) 28 U/L (0-35) Alanine Aminotransferase (ALT) 13 U/L (12-78) Alkaline Phosphatase 173 U/L (50-136) H Total Creatine Kinase 67 U/L (26-192) Troponin I 0.25 ng/mL (0.00-0.05) H 0.32 ng/mL (0.00-0.05) H Pro-B-Type Natriuretic Peptide 90588 pg/mL (0-125) H Total Protein 6.9 g/dL (6.4-8.2) Albumin 2.8 g/dL (3.4-5.0) L Globulin 4.1 Percent Immature Gran (Cell Imm) 0.40 % (0.00-0.50) Differential Total Cells Counted 100 #CELLS Segmented Neutrophils 60 % (31-76) Lymphocytes 21 % (25-36) L Monocytes 7 % (3-9) Absolute Eosinophils (Manual) 10 % (1-4) H Basophils 2 % (0-2) Platelet Estimate INCREASED Platelet Morphology NORMAL Hypochromasia 1+ (NEGATIVE) Poikilocytosis 1+ (NEGATIVE) Progress Progress Care of patient transferred to Dr. Kwok at 7pm 2130 Pt has done well on BiPAP, lungs sounds clear. Able to DC BiPAP, pt doing well on cannula at 4 lpm. Sent for CTA chest to R/o PE due to acute onset of dyspnea and elevated troponin. Course Sepsis Screening Results: Posi: POSITIVE Sepsis Qualifier/Stage: SEPSIS RISK Duration or Total Time Spent w: 90 Vitals & review Data Vital Sign - Last 24 Hours 02/01/19 02/01/19 02/12/19 02/12/19 08:40 10:42 18:41 18:41 Temp 97.0 97.0 97.0 97.0 Pulse 98 93 106 106 Resp 40 40 B/P (MAP) 165/98 (120) Pulse Ox 90 90 02/12/19 02/12/19 02/12/19 02/12/19 18:41 19:11 19:22 19:26 Temp 97.0 97.0 Pulse 106 88 101 90 Resp 40 25 26 22 B/P (MAP) 160/109 (126) 145/69 (94) Pulse Ox 93 92 94 O2 Delivery Bi Pap S/T Bi Pap FiO2 60 02/12/19 02/12/19 02/12/19 02/12/19 19:41 19:56 20:11 20:26 Pulse 78 74 83 81 Resp 18 22 20 18 B/P (MAP) 142/66 (91) 139/64 (89) 144/74 (97) 149/77 (101) Pulse Ox 95 92 93 94 O2 Delivery Bi Pap Bi Pap Bi Pap Bi Pap 02/12/19 02/12/19 02/12/19 02/12/19 20:30 20:45 21:00 21:15 Pulse 75 78 75 86 Resp 21 16 20 17 B/P (MAP) 149/77 (101) 140/69 (92) 148/70 (96) 148/84 (105) Pulse Ox 94 95 96 95 O2 Delivery Bi Pap Bi Pap Bi Pap Bi Pap 02/12/19 02/12/19 02/12/19 02/12/19 21:45 22:00 22:05 22:15 Pulse 94 87 87 Resp 18 29 20 B/P (MAP) 148/88 (108) 151/97 (115) 148/88 147/72 (97) Pulse Ox 92 95 92 O2 Delivery Nasal Canula Nasal Canula Nasal Canula O2 Flow Rate 4.00 4.00 4.00 02/12/19 22:37 Temp 98.0 98.0 Laboratory Tests Test 02/12/19 18:52 02/12/19 19:03 02/12/19 19:08 02/12/19 21:46 Blood Gas Sample Site RT BRACIAL ARTERY Blood Gas pH 7.255 Blood Gas PCO2 47.6 mmHg Blood Gas PO2 69.1 mmHg Blood Gas HCO3 20.6 mmol/L Blood Gas Base Excess -6.4 mmol/L Jose Test N/A Arterial Blood Oxygen Saturation 90.1 % Deoxyhemoglobin 9.6 % Carboxyhemoglobin 2.5 % Methemoglobin 0.5 % Total Hemoglobin 10.9 % Total Oxygen Concentration 13.5 % Lactic Acid (Blood Gas) 1.7 MMOL/L Blood Gas Temperature 37 Oxygen Delivery Method (LAB) NON-REBREATHER MASK FiO2 80 % Bicarbonate 22.1 mmol/L White Blood Count 11.2 10^3/uL Red Blood Count 3.32 10^6/uL Hemoglobin 9.9 g/dL Hematocrit 31.0 % Mean Corpuscular Volume 93.4 fL Mean Corpuscular Hemoglobin 29.8 pg Mean Corpuscular Hemoglobin Concent 31.9 g/dL Red Cell Distribution Width 14.4 % Platelet Count 578 10^3/uL Mean Platelet Volume 10.5 fL Neutrophils (%) (Auto) 59.3 % Lymphocytes (%) (Auto) 18.9 % Monocytes (%) (Auto) 9.7 % Neutrophils # (Auto) 6.7 10^3/uL Lymphocytes # (Auto) 2.1 10^3/uL Monocytes # (Auto) 1.1 10^3/uL Absolute Immature Granulocyte (auto 0.04 10^3 u/L Eosinophils % 10.6 % Basophils % 1.1 % Basophils # 0.1 10^3/uL Eosinophil Count 1.2 10^3/uL D-Dimer 4.69 mg/L Sodium Level 139 mmol/L Potassium Level 4.3 mmol/L Chloride Level 106.0 mmol/L Carbon Dioxide Level 21.3 mmol/L Anion Gap 16.0 Blood Urea Nitrogen 14 mg/dL Creatinine 1.26 mg/dL Estimated GFR () 51.3 BUN/Creatinine Ratio 11.0 Glucose Level 232 mg/dL Calcium Level 9.4 mg/dL Total Bilirubin 0.5 mg/dL Aspartate Amino Transf (AST/SGOT) 28 U/L Alanine Aminotransferase (ALT/SGPT) 13 U/L Alkaline Phosphatase 173 U/L Total Creatine Kinase 67 U/L Troponin I 0.25 ng/mL 0.32 ng/mL Pro-B-Type Natriuretic Peptide 98233 pg/mL Total Protein 6.9 g/dL Albumin 2.8 g/dL Globulin 4.1 Percent Immature Gran (Cell Imm) 0.40 % Differential Total Cells Counted 100 #CELLS Segmented Neutrophils 60 % Lymphocytes 21 % Monocytes 7 % Absolute Eosinophils (Manual) 10 % Basophils 2 % Platelet Estimate INCREASED Platelet Morphology NORMAL Hypochromasia 1+ Poikilocytosis 1+ Current Medications Medications (Trade) Dose Ordered Sig/Jacques PRN Reason Start Time Stop Time Status Last Admin Aspirin (Aspirin) 325 mg STAT STAT 02/12/19 22:27 02/12/19 22:28 UNV 02/12/19 22:37 Ceftriaxone Sodium 1000 mg/ Sodium Chloride 100 ml @ 100 mls/hr Q6 STAT 02/12/19 22:27 02/12/19 23:26 UNV 02/12/19 22:37 Furosemide (Lasix) 40 mg DAILY 02/13/19 09:00 03/15/19 08:59 02/12/19 22:05 Sepsis Infection Criteria Pres: Documented Infection LEVEL 1 SEPSIS INFECTION CRITE: Flu-Pneumonia, Urinary Tract Infection LEVEL 2-SIRS (LIST ALL THAT AP: [id number] Cardiovascular Evidence: Not Assessed or None Hematologic Evidence: None/Not assessed Hepatic Evidence: None/Not assessed Metabolic Evidence: None/Not assessed Neurological Evidence: None/Not assessed Respiratory Evidence: Need for O2 to keep>90% Renal Evidence: None/Not assessed Departure Time of Disposition: 23:29 Disposition: 70 DISC/XFER TO [facility] Impression: Primary Impression: CHF exacerbation Additional Impressions: Hypoxemia Elevation of cardiac enzymes COPD (chronic obstructive pulmonary disease) Condition: Stable If Transfer, List PT Destinati: [facility] Referrals: PCP,UNKNOWN (PCP) PRIMARY CARE PROVIDER Duration or Time Spent with Pa: 48 Problem Qualifiers Primary Impression: CHF exacerbation Heart failure type: unspecified Qualified Codes: I50.9 - Heart failure, unspecified Additional Impressions: COPD (chronic obstructive pulmonary disease) COPD type: COPD with acute exacerbation Qualified Codes: J44.1 - Chronic obstructive pulmonary disease with (acute) exacerbation RICKI MEADE MD Feb 12, 2019 18:59 KEILA KWOK MD Feb 12, 2019 22:30
--- NOTE | 2019-02-12 19:00 | NUR ---
BIPAP BiPap applied at this this by Respiratory.
[2019-02-12 19:02] LABS: ABG PCO2 47.6 mmHg (35.0-45.0); ABG PH 7.255 (7.350-7.450); BE(B) -6.4 mmol/L (-2.0-2.0); HCO3act 20.6 mmol/L (22.0-26.0); pO2 69.1 mmHg (75.0-100.0)
[2019-02-12 19:07] LABS: BASOPHIL # 0.1 10^3/uL (0.0-0.1); BASOPHIL % 1.1 % (0.0-0.2); EOSINOPHIL # 1.2 10^3/uL (0.0-0.2); EOSINOPHIL % 10.6 % (0.0-5.0); HEMOGLOBIN 9.9 g/dL (12.0-15.0); LYMPHOCYTES # 2.1 10^3/uL (1.0-4.8); LYMPHOCYTES % 18.9 % (24.0-44.0); MEAN CELL HGB 29.8 pg (26-34); MEAN CELL HGB CONCENTRATION 31.9 g/dL (33-37); MEAN CORP VOLUME 93.4 fL (78-100); MEAN PLATELET VOLUME 10.5 fL (7.8-11.0); MONOCYTES # 1.1 10^3/uL (0.3-0.8); MONOCYTES % 9.7 % (5.0-12.0); NEUTROPHIL # 6.7 10^3/uL (1.8-7.7); NEUTROPHILS % 59.3 % (41.0-85.0); RED CELL DISTRIBUTION WIDTH 14.4 % (11.5-14.5); WHITE BLOOD CELL 11.2 10^3/uL (4.5-11.0)
--- NOTE | 2019-02-12 19:21 | DIREP ---
PROCEDURE:CHEST 1 VIEW COMPARISON:[facility], CR, XRAY CHEST 2 VWS, 01/30/2019, 10:14 AM. [facility], CR, XRAY CHEST SINGLE VW, 01/29/2019, 08:36 AM. INDICATIONS:SOB FINDINGS: LUNGS/PLEURA:Small to moderate bilateral pleural effusions. Diffuse bilateral interstitial thickening. VASCULATURE:Normal. Unremarkable pulmonary vasculature. CARDIAC:Normal. No cardiac silhouette abnormality or cardiomegaly. Vascular calcifications noted versus coronary artery stent. MEDIASTINUM:Vascular calcifications. BONES:Normal. No fracture or visible bony lesion. OTHER:EKG leads on the chest. CONCLUSION:Bilateral effusions and diffuse interstitial thickening. Differential includes volume overload/CHF versus infection. Dictated by: Javier Gonzalez M.D. on 02/12/2019 at 07:19 PM
[2019-02-12 19:31] LABS: CALCIUM 9.4 mg/dL (8.4-10.5); CARBON DIOXIDE 21.3 mmol/L (20.0-32)
--- NOTE | 2019-02-12 19:36 | PCM.EKG ---
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
[2019-02-12 19:41] LABS: BASOPHIL 2 % (0-2); EOSINOPHIL 10 % (1-4); LYMPHOCYTE 21 % (25-36); MONOCYTE 7 % (3-9); SEGMENTED NEUTROPHILS 60 % (31-76)
--- NOTE | 2019-02-12 21:25 | NUR ---
Radiology Pt to Radiology via stretcher accompanied by Rod Melendez. Pt taken off Bi-Pap and initiated on 4L/NC by RT Roxann. Pt tolerating well.
--- NOTE | 2019-02-12 21:40 | NUR ---
Radiology Arrives back to Room from Radiology on 4L/NC Oxygen. Pt awake, alert, and conversant, though voice is hoarse. Pt with complete recall of events leading up to today, states she was on the way to the dining area to eat when she became short of breath. Pt denies pain. Vitals obtained and stable. Lab in to draw Troponin at this time.
[2019-02-12] MEDS ORDERED: LASIX ONE (21:48)
--- NOTE | 2019-02-12 22:18 | DIREP ---
PROCEDURE:CT PULMONARY ANGIOGRAM TECHNIQUE:Following the intravenous administration of contrast material, axial cuts were obtained through the chest. Multiplanar / 3-D reconstructions are provided. Satisfactory pulmonary arterial contrast opacification was achieved. The images were viewed at lung and soft tissue settings. COMPARISON:[facility], CT, CT ABD/PELVIS W/O, 01/27/2019, 03:24 PM. INDICATIONS:dyspnea/hypoxia/elev D-dimer FINDINGS: PULMONARY ARTERIES:No evidence of pulmonary embolus. LUNGS:Scattered parenchymal airspace opacities present involving the right middle lobe and lower lobes with superimposed atelectasis. CARDIAC:Moderate cardiomegaly. Coronary arterial calcifications. THYROID:Normal. THORACIC AORTA:Aortic and major branch atherosclerotic calcifications. MEDIASTINUM:Normal. PLEURA:Moderate right and small left pleural effusion. BONES:Moderate multilevel thoracic spondylosis.. OTHER:No additional findings. CONCLUSION: 1. No CT evidence of pulmonary embolus. 2. Scattered parenchymal airspace infiltrates throughout the lungs particular in the suspicious for combination of atelectasis and pneumonia. 3. Moderate right and small left pleural effusion. 4. Moderate cardiomegaly. Dictated by: Sergio Mcgowan M.D. on 02/12/2019 at 10:02 PM
[2019-02-12] MEDS ORDERED: NS 100ML 100 ML IV ONE (22:25)
[2019-02-12] MEDS ORDERED: ASPIRIN ONE (22:25)
[2019-02-12] MEDS ORDERED: ROCEPHIN ONE (22:25)
--- NOTE | 2019-02-12 22:25 | NUR ---
EKG Notified RT Roxann of repeat EKG order. Aspirin administered as per orders.
[2019-02-12] MEDS ORDERED: ASPIRIN PO STA (22:27)
[2019-02-12] MEDS ORDERED: ROCEPHIN 1,000 MG in NS 100ML 100 ML IV STA (22:27)
--- NOTE | 2019-02-12 22:32 | PCM.EKG ---
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
--- NOTE | 2019-02-12 23:02 | NUR ---
Phyllis Kwok on phone with Dr. Ferguson
[2019-02-12] MEDS ORDERED: NITROSTAT SL STA (23:08)
[2019-02-12] MEDS ORDERED: NITRO-DUR 0.4MG PATCH TD STA (23:08)
--- NOTE | 2019-02-12 23:15 | NUR ---
Dr. Alaina Kwok attempt to reach Dr. Foley in regards to consulting for admission. Attempt unsuccessful, Await return call.
[2019-02-12] MEDS ORDERED: NITRO-DUR 0.4MG PATCH TD ONE (23:18)
--- NOTE | 2019-02-12 23:21 | NUR ---
Dr. Foley Returned call; Dr. Foley not available for call this evening. Patient to be transferred for higher level care.
[2019-02-13] VITALS: BP 137/71
--- NOTE | 2019-02-13 00:38 | NUR ---
Discharge Pt discharge to [facility] via [facility]. Pt remains stable on 4 L/NC Oxygen. No signs of distress. Denies pain, denies chest pain. Howe patent with 950 mL pale yellow urine. GCS 15. SL intact in right wrist. Pt assisted to cot with assist x3. Positioned to comfort. Report given with transfer packet. Relinquish care.
--- NOTE | 2019-02-13 00:41 | NUR ---
Report Report called to [facility] at [phone]. Spoke to TRINITY Ballard.
[2019-02-13 00:49] VITALS: BP 137/71
[2019-02-13] MEDS ORDERED: LASIX IV SCH (09:00)
== END 2019-02-13 00:38 | disposition other institution (70) ==
LOC: ER 18:41 → EDBD 18:41 → ER 02-13 00:38
DX: I50.9 Heart failure, unspecified (principal); J44.1 Chronic obstructive pulmonary disease with (acute) exacerbation; R09.02 Hypoxemia; Z79.4 Long term (current) use of insulin; Z79.82 Long term (current) use of aspirin; Z79.899 Other long term (current) drug therapy; Z88.5 Allergy status to narcotic agent; Z90.49 Acquired absence of other specified parts of digestive tract
CPT/HCPCS: 36415; 36600; 51702; 71045; 71275; 80053; 82550; 82803; 83880; 84484 ×2; 85025; 85379; 87040 ×2; 93005 ×2; 94660; 96365; 96375; 99285; A4338; J0696 ×2; J1940; J2930; J7050 ×2; Q9965; 96361; 96374; 99284

== ENCOUNTER → 2019-03-17 | Outpatient (CLI) | payer MEDICARE, MEDICAID ==
--- NOTE | 2019-03-17 12:51 | DIREP ---
PROCEDURE:CT UPPER EXTREMITY-RT W/O COMPARISON:None. INDICATIONS:LIMITED ROM, RT SHOULDER PAIN TECHNIQUE:Multi-planar CT images of the upper extremity were created without intravenous contrast. FINDINGS: BONES:No fracture. No significant osteophytes. Minimal hypertrophic change at the lateral superior margin of the humeral articular surface, greater tuberosity. SOFT TISSUES:Shoulder is high-riding, the acromial humeral interval is reduced to near 0 consistent with thinning or absence of the superior rotator cuff. There is a joint effusion, small amount of fluid in the subdeltoid bursa, and moderate fluid in the subcoracoid bursa OTHER:Minimal soft tissue calcifications at the distal sub scapularis tendon. CONCLUSION:High-riding shoulder with joint effusion. Dictated by: Mady Matthews MD on 03/17/2019 at 11:38 AM
== END | disposition home or self-care (01) ==
LOC: CT 10:13
PROVIDERS: ATTEND Family Medicine
DX: M25.811 Other specified joint disorders, right shoulder (principal)
CPT/HCPCS: 73200

== ENCOUNTER → 2020-02-20 | Outpatient (CLI) | payer MEDICARE, MEDICAID ==
[~2020-02-20] MED LIST changes: +LISI1TAB19 PO; +LISI1TAB20 PO; -LISI1TAB5 PO; -LISI1TAB7 PO; +MONT10TA11 PO; -MONT10TA9 PO; +OMEP40CA41 PO; -OMEP40CA6 PO; +SIMV40TA20 PO; -SIMV40TA3 PO; -TRAZ-124 PO; +TRAZ-163 PO
[2020-02-20 19:35] LABS: BILIRUBIN,URINE NEGATIVE (NEGATIVE); UROBILINOGEN,URINE NORMAL (NEGATIVE)
[2020-02-20 19:52] LABS: APPEARANCE,URINE CLOUDY (CLEAR); UA COLOR YELLOW (YELLOW)
== END | disposition home or self-care (01) ==
LOC: LAB 18:00
PROVIDERS: ATTEND Family Medicine
DX: N39.0 Urinary tract infection, site not specified (principal)
CPT/HCPCS: 81000; 87077; 87086; 87186

== ENCOUNTER 2020-02-22 13:35 | Emergency (ER) | payer MEDICARE, MEDICAID ==
[~2020-02-22] VITALS: Ht 170.2 cm; Wt 77.1 kg
[2020-02-22 13:37] VITALS: BP 116/93
[2020-02-22 13:43] VITALS: BP 116/93
--- NOTE | 2020-02-22 13:43 | NUR ---
ARRIVAL PATIENT ARRIVED TO ED4 VIA GURNEY BY [facility], EMS CALLED TO [facility] FOR ABNORMAL LABS, PATIENT DOESN'T HAVE ANY RENAL HISTORY, STATES SHE HAS BEEN FEELING WEAK WITH ABNOMAL LABS, WAS SENT TO THE ED FOR EVAL.
[2020-02-22 14:04] LABS: BASOPHIL % 0.1 % (0.0-0.2); EOSINOPHIL # 0.1 10^3/uL (0.0-0.2); EOSINOPHIL % 0.6 % (0.0-5.0); LYMPHOCYTES % 5.8 % (24.0-44.0); MEAN CORP HGB 30.4 pg (26-34); MONOCYTES # 1.3 10^3/uL (0.3-0.8); MONOCYTES % 6.9 % (5.0-12.0); NEUTROPHIL # 15.5 10^3/uL (1.8-7.7); NEUTROPHILS % 82.1 % (41.0-85.0); PLATELET COUNT 301 10^3/uL (150-400); RED CELL DISTRIBUTION WIDTH 13.4 % (11.5-14.5)
--- NOTE | 2020-02-22 14:04 | PCM.EKG ---
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
[2020-02-22 14:21] LABS: CALCIUM 10.2 mg/dL (8.4-10.5); CARBON DIOXIDE 18.2 mmol/L (20.0-32)
--- NOTE | 2020-02-22 14:29 | NUR ---
CRITICAL POTASSIUM 7.4,BUN 137,CREATININE 10.74, DOCTOR VICKI NOTIFIED.
[2020-02-22] MEDS ORDERED: SPS PO STA (14:30)
[2020-02-22] MEDS ORDERED: SODIUM BICARBONATE IV STA (14:30)
[2020-02-22] MEDS ORDERED: HUMULIN R IV ONE (14:30)
[2020-02-22] MEDS ORDERED: CALCIUM GLUCONATE IV STA (14:30)
[2020-02-22] MEDS ORDERED: SPS ONE (14:34)
[2020-02-22] MEDS ORDERED: SODIUM BICARBONATE IV ONE (14:35)
[2020-02-22] MEDS ORDERED: HUMULIN R ONE (14:35)
[2020-02-22] MEDS ORDERED: CALCIUM GLUCONATE IV ONE (14:36)
[2020-02-22] MEDS ORDERED: NS 100ML 100 ML IV ONE (14:36)
--- NOTE | 2020-02-22 14:37 | ER.PDOC ---
General Chief Complaint: General Complaint Stated Complaint: ABD PAIN/WEAKNESS TRAVEL OUT OF US: No Time seen by MD: 14:26 Source: patient Exam Limitations: no limitations History of Present Illness Initial Comments Pt sent in from [facility] where labs showed renal failure and high potassium level. pt denies other symptoms except some mild abdominal discomfort. NO chest pain, no syncope, no palpitations. Timing/Duration: unsure Allergies: Coded Allergies: codeine (Verified Allergy, Unknown, 03/29/17) Home Meds Active Scripts Cefdinir (CEFDINIR) 300 Mg Capsule, 300 MG PO BID for 3 Days, #6 CAPSULE 0 Refills Prov:MAGUI CONNER MD 02/01/19 Pantoprazole Sodium (PROTONIX) 40 Mg Tablet.dr, 40 MG PO DAILY for 30 Days Prov:TERRENCE TORRES MD 01/30/19 Insulin Glargine,Hum.rec.anlog (LANTUS) 100 Unit/1 Ml Vial, 20 UNIT SQ HS for 14 Days, VIAL Prov:TERRENCE TORRES MD 01/30/19 Aspirin (ASPIRIN EC) 81 Mg Tablet.dr, 81 MG PO DAILY, #30 Prov:TERRENCE TORRES MD 01/30/19 Sacubitril/Valsartan (Entresto 24 mg-26 mg Tablet) 1 Each Tablet, 1 EACH PO BID, #60 TABLET Prov:TERRENCE TORRES MD 01/30/19 Nitroglycerin (NITROSTAT) 0.4 Mg Tab.subl, 0.4 MG SL PRN PRN for CHEST PAIN for 30 Days Prov:TERRENCE TORRES MD 01/30/19 Hydralazine Hcl (HYDRALAZINE HCL) 25 Mg Tablet, 25 MG PO TID, #90 TABLET Prov:TERRENCE TORRES MD 01/30/19 Carvedilol 12.5MG (COREG 12.MG) 12.5 Mg Tablet, 12.5 MG PO BID for 30 Days, TABLET Prov:TERRENCE TORRES MD 01/30/19 Atorvastatin 40MG (LIPITOR 40MG) 40 Mg Tablet, 40 MG PO HS for 30 Days, TABLET Prov:TERRENCE TORRES MD 01/30/19 Ticagrelor (BRILINTA) 90 Mg Tablet, 90 MG PO BID, #30 TABLET Prov:TERRENCE TORRES MD 01/30/19 Levetiracetam (KEPPRA) 500 Mg Tablet, 500 MG PO BID for 30 Days, #60 TABLET 5 Refills Prov:JAIME MATA MD 04/01/17 Reported Medications Umeclidinium Brm/Vilanterol Tr (Anoro Ellipta 62.5-25 Mcg INH) 1 Each Disk.w.dev, 1 EACH IH DAILY24 05/07/18 Albuterol Sulfate (VENTOLIN HFA) 18 Gm Hfa.aer.ad, 18 GM IH Q6HR for SOB 04/16/18 Montelukast Sodium (MONTELUKAST SODIUM) 10 Mg Tablet, 1 TAB PO HS, #30 TAB 5 Refills 04/16/18 Omeprazole (OMEPRAZOLE) 40 Mg Capsule.dr, 40 MG PO DAILY24, #1 04/16/18 Trazodone Hcl (TRAZODONE HCL) 50 Mg Tablet, 1.5 TAB PO HS, #30 TAB 1 Refill 03/29/17 Sertraline Hcl (ZOLOFT) 100 Mg Tablet, 1 TAB PO DAILY, #30 TAB 5 Refills 03/29/17 Past Medical History Medical History: CVA/TIA/stroke, congestive heart failure, COPD, diabetes, GERD, high cholesterol, hypertension, other Surgical History: appendectomy, cholecystectomy Social History Alcohol Use: none Drug Use: none Review of Systems Constitutional: no symptoms reported; denies chills, denies fever EENTM: no symptoms reported Respiratory: no symptoms reported; denies cough, denies orthopnea, denies shortness of breath Cardiovascular: no symptoms reported Gastrointestinal: see HPI; denies diarrhea, denies nausea, denies vomiting Genitourinary: no symptoms reported; denies dysuria Musculoskeletal: no symptoms reported Skin: no symptoms reported All Other Systems: Reviewed and Negative Physical Exam General Appearance: No Apparent Distress Respiratory: chest non-tender, lungs clear, normal breath sounds CVS: reg rate & rhythm, no murmur, no gallop Gastrointestinal: Normal Bowel Sounds, No Organomegaly, No Pulsatile Mass, Non Tender Rectal: Deferred Neurologic/Psychiatric: No Motor/Sensory Deficits, Alert, Oriented x 3 Skin: Normal Color, Warm/Dry Results/Orders Results/Orders Orders - ARNOLD COHEN DO Cbc With Auto Diff (02/22/20 13:46) Comprehensive Metabolic Panel (02/22/20 13:46) Creatine Kinase (02/22/20 13:46) PT (02/22/20 13:46) Partial Thromboplastin Time. (02/22/20 13:46) Helicobacter Pylori (02/22/20 13:46) Ekg-Routine (02/22/20 13:46) Ct Abd/Pelvis Wo Iv Contrast (02/22/20 13:46) Calcium Gluconate (Calcium Gluconate) (02/22/20 14:30) Sodium Bicarbonate (Sodium Bicarbonate) (02/22/20 14:30) Insulin Regular, Human (Humulin R) (02/22/20 14:30) Sodium Polystyrene Sulfon/Sorb (Sps) (02/22/20 14:30) Sodium Polystyrene Sulfon/Sorb (Sps) (02/22/20 14:34) Insulin Regular, Human (Humulin R) (02/22/20 14:35) Sodium Bicarbonate (Sodium Bicarbonate) (02/22/20 14:35) Calcium Gluconate (Calcium Gluconate) (02/22/20 14:36) 0.9 % Sodium Chloride (Ns 100ml) (02/22/20 14:36) Urinalysis (02/22/20 15:18) 0.9 % Sodium Chloride (Ns 1000ml) (02/22/20 15:24) Bedside Glucose (02/22/20 15:20) Vital Signs Date Time Temp Pulse Resp B/P (MAP) Pulse Ox O2 Delivery O2 Flow Rate FiO2 02/22/20 15:06 96.8 82 16 131/68 (89) 96 Room Air 02/22/20 13:43 96.8 77 16 116/93 (101) 96 Room Air 02/22/20 13:37 96.8 77 16 02/22/20 13:37 96.8 77 16 96 Administered Medications Medications (Trade) Dose Ordered Sig/Jacques Route PRN Reason Start Time Stop Time Status Last Admin Dose Admin Calcium Gluconate (Calcium Gluconate) 1,000 mg STAT STAT IV 02/22/20 14:30 02/22/20 14:33 DC 02/22/20 14:44 1,000 MG Insulin Human Regular (Humulin R) 6 unit OT ONCE IV 02/22/20 14:30 02/22/20 14:33 DC 02/22/20 14:45 6 UNIT Sodium Bicarbonate (Sodium Bicarbonate) 50 meq STAT STAT IV 02/22/20 14:30 02/22/20 14:33 DC 02/22/20 14:44 50 MEQ Laboratory Tests Test 02/22/20 13:55 02/22/20 14:06 02/22/20 15:18 02/22/20 15:20 White Blood Count 18.9 10^3/uL (4.5-11.0) H Red Blood Count 3.85 10^6/uL (4.00-5.20) L Hemoglobin 11.7 g/dL (12.0-15.0) L Hematocrit 34.9 % (36.0-46.0) L Mean Corpuscular Volume 90.6 fL (78-100) Mean Corpuscular Hemoglobin 30.4 pg (26-34) Mean Corpuscular Hemoglobin Concent 33.5 g/dL (33-36.5) Red Cell Distribution Width 13.4 % (11.5-14.5) Platelet Count 301 10^3/uL (150-400) Mean Platelet Volume 11.6 fL (7.8-11.0) H Neutrophils (%) (Auto) 82.1 % (41.0-85.0) Lymphocytes (%) (Auto) 5.8 % (24.0-44.0) *L Monocytes (%) (Auto) 6.9 % (5.0-12.0) Neutrophils # (Auto) 15.5 10^3/uL (1.8-7.7) H Lymphocytes # (Auto) 1.10 10^3/uL1 (1.0-4.8) Monocytes # (Auto) 1.3 10^3/uL (0.3-0.8) H Absolute Immature Granulocyte (auto 0.86 10^3 u/L (0-2) Absolute Eosinophils (auto) 0.1 10^3/uL (0.0-0.2) Immature Granulocytes % 4.50 % (0.00-0.50) H Eosinophils % 0.6 % (0.0-5.0) Basophils % 0.1 % (0.0-0.2) Basophils # 0.0 10^3/uL (0.0-0.1) Prothrombin Time 12.2 SEC (9.3-11.3) H Prothrombin Time INR (Non-Therap) 1.2 Activated Partial Thromboplast Time 27.4 SEC (24.67-30.72) Sodium Level 126 mmol/L (132-145) #L Potassium Level 7.4 mmol/L (3.6-5.2) *H Chloride Level 93.0 mmol/L (96-109) L Carbon Dioxide Level 18.2 mmol/L (20.0-32) L Anion Gap 22.2 Blood Urea Nitrogen 137 mg/dL (7-18) *H Creatinine 10.74 mg/dL (0.59-1.40) *H Estimated GFR () 4.3 (>/=60) Est GFR (CKD-EPI)(Non-Afr Zimbabwean) 3.6 (>/=60) BUN/Creatinine Ratio 12.0 Glucose Level 301 mg/dL (70-110) H Calcium Level 10.2 mg/dL (8.4-10.5) Total Bilirubin 0.4 mg/dL (0.2-1.0) Aspartate Amino Transferase (AST) 13 U/L (0-35) Alanine Aminotransferase (ALT) 19 U/L (12-78) Alkaline Phosphatase 104 U/L (50-136) Total Creatine Kinase 60 U/L (26-192) Total Protein 6.9 g/dL (6.4-8.2) Albumin 2.4 g/dL (3.4-5.0) L Globulin 4.5 Helicobacter pylori Screen NEGATIVE (NEGATIVE) Differential Total Cells Counted 100 #CELLS Segmented Neutrophils 89 % (31-76) H Lymphocytes 6 % (25-36) L Monocytes 5 % (3-9) Differential Comment NORMAL Platelet Estimate ADEQUATE Platelet Morphology NORMAL Blood Morphology Comment NORMAL MORPHOLOGY Urine Collection Type CATH Urine Color YELLOW (YELLOW) Urine Appearance CLEAR (CLEAR) Urine Bilirubin 1 MG/DL (NEGATIVE) H Urine Ictotest NEGATIVE (NEGATIVE) Urine Ketones 5 mg/dL (NEGATIVE) H Urine Specific [place] 1.025 (1.005-1.035) Urine pH 5 (5.0-6.0) Urine Protein 15 mg/dL (NEGATIVE) H Urine Urobilinogen NORMAL (NEGATIVE) Urine Nitrate NEGATIVE (NEGATIVE) Urine Leukocyte Esterase 25 /uL TRACE (NEGATIVE) Urine Blood 50 2+ (NEGATIVE) H Urine RBC 0-2 RBC/HPF (NONE SEEN) Urine WBC 0-2 WBC/HPF (0-2) Urine Squamous Epithelial Cells RARE #/HPF (FEW) Urine Amorphous Sediment SMALL (NONE SEEN) Urine Bacteria NONE SEEN (NONE SEEN) Urine Hyaline Casts 0-1 (NONE SEEN) Urine Glucose 100 (NEGATIVE) H POC Glucose 220 (70 - 110) H Progress Progress Pt with elevated K+ and renal failure, will need dialysis. Pt without ectopy on EKG and monitor, but has peaked T-waves on EKG. Given Calcium, bicarb, insulin, Kayexalate to temporarily lower BP. Pt has elevated WBC, no fever, UA pending. Spoke with [facility] transfer line, accepted to ER by Dr. Gibson. Pt needs transfer for Nephrology availability as she will need dialysis at least in the short term. EKG/XRAY/CT/US EKG: NSR EKG Comments: rate 73, peaked T-waves present, borderline LAD, no ischemic changes noted Departure Time of Disposition: 15:05 Disposition: 70 DISC/XFER TO [facility] Impression: Primary Impression: Acute renal failure Additional Impressions: Hyperkalemia Leukocytosis Condition: Stable Referrals: PCP,UNKNOWN (PCP) PRIMARY CARE PROVIDER Duration or Time Spent with Pa: 30 Problem Qualifiers Primary Impression: Acute renal failure Acute renal failure type: unspecified Qualified Codes: N17.9 - Acute kidney failure, unspecified Additional Impressions: Leukocytosis Leukocytosis type: unspecified Qualified Codes: D72.829 - Elevated white blood cell count, unspecified ARNOLD COHEN DO Feb 22, 2020 14:37
--- NOTE | 2020-02-22 14:46 | DIREP ---
PROCEDURE:CT ABDOMEN/PELVIS W/O CONTRAST COMPARISON:[facility], CT, CT ABD/PELVIS W/O, 01/27/2019, 03:24 PM. INDICATIONS:renal failure, abdominal pain TECHNIQUE:Axial images were created through the abdomen and pelvis without intravenous contrast material. Oral contrast was administered. Sagittal and coronal reconstructions were performed from source images. FINDINGS: LUNG BASES:Normal. No visible pulmonary or pleural disease. LIVER:Normal. No significant liver lesions are identified. BILIARY:The gallbladder is surgically absent. There is no biliary ductal dilatation. PANCREAS:Normal. No lesion, fluid collection, ductal dilatation, or atrophy. SPLEEN:Normal. No enlargement or focal lesion. ADRENALS:Normal. No mass or enlargement. URINARY TRACT:Normal. No focal lesions or hydronephrosis. AORTA/VASCULAR:There are aortic atherosclerotic calcifications present. No aneurysm. RETROPERITONEUM:Normal. No mass or adenopathy. BOWEL/MESENTERY:Normal. There is no intestinal obstruction, free fluid, free air or mesenteric inflammatory changes. ABDOMINAL WALL:Normal. No mass or hernia. PELVIC ORGANS:The uterus is surgically absent. No visible mass. Large hematoma seen on previous examination has resolved BONES:Normal for age. No bony lesion or acute fracture. OTHER:Negative. CONCLUSION:No hydronephrosis. Kidneys unremarkable. Atherosclerotic and postsurgical changes. Dictated by: Willam Appiah MD on 02/22/2020 at 02:42 PM
--- NOTE | 2020-02-22 15:02 | NUR ---
[facility] DOCTOR FOSTER ON THE PHONE WITH [facility] DISCUSSING TRANSFER.
[2020-02-22 15:06] VITALS: BP 131/68
--- NOTE | 2020-02-22 15:06 | NUR ---
[facility] DOCTOR EVONNE ACCEPTED PATIENT AND MEENAKSHI CANTU
--- NOTE | 2020-02-22 15:10 | NUR ---
DISPATCH DISPATCH NOTIFIED OF PATIENT TRANSFER
[2020-02-22 15:20] LABS: DIFFERENTIAL COMMENT NORMAL; LYMPHOCYTE 6 % (25-36); MONOCYTE 5 % (3-9); SEGMENTED NEUTROPHILS 89 % (31-76)
[2020-02-22 15:22] LABS: APPEARANCE,URINE CLEAR (CLEAR); BILIRUBIN,URINE 1 MG/DL (NEGATIVE); UA COLOR YELLOW (YELLOW); UROBILINOGEN,URINE NORMAL (NEGATIVE)
--- NOTE | 2020-02-22 15:22 | NUR ---
[facility] HERE FOR TRANSFER
[2020-02-22] MEDS ORDERED: NS 1000ML 1,000 ML ONE (15:24)
--- NOTE | 2020-02-22 15:37 | NUR ---
REPORT REPORT GIVEN TO RALPH IN THE [facility] ED
== END 2020-02-22 15:33 | disposition other institution (70) ==
LOC: EDBD 13:35 → ER 13:35
DX: N17.9 Acute kidney failure, unspecified (principal); D72.829 Elevated white blood cell count, unspecified; E11.9 Type 2 diabetes mellitus without complications; E78.00 Pure hypercholesterolemia, unspecified; E87.5 Hyperkalemia; I11.0 Hypertensive heart disease with heart failure; I50.9 Heart failure, unspecified; J44.9 Chronic obstructive pulmonary disease, unspecified; K21.9 Gastro-esophageal reflux disease without esophagitis; Z79.4 Long term (current) use of insulin; Z79.82 Long term (current) use of aspirin; Z79.899 Other long term (current) drug therapy; Z86.73 Personal history of transient ischemic attack (TIA), and cerebral infarction without residual deficits; Z88.5 Allergy status to narcotic agent; Z90.49 Acquired absence of other specified parts of digestive tract
CPT/HCPCS: 36415; 74176; 80053; 81000; 82550; 82948; 85025; 85610; 85730; 86677; 93005; 96374; 96375; 99285; J0610; J1815; J3490; J7030; J7050

== ENCOUNTER → 2020-03-24 | Outpatient (CLI) | payer MEDICARE, MEDICAID ==
[2020-03-24 17:37] LABS: MEAN CORP HGB 30.3 pg (26-34); RED CELL DISTRIBUTION WIDTH 15.5 % (11.5-14.5)
[2020-03-24 18:54] LABS: CALCIUM 8.9 mg/dL (8.4-10.5); CARBON DIOXIDE 22.9 mmol/L (20.0-32)
== END | disposition home or self-care (01) ==
LOC: LAB 16:20
PROVIDERS: ATTEND Family Medicine
DX: I63.9 Cerebral infarction, unspecified (principal); I10 Essential (primary) hypertension; E78.5 Hyperlipidemia, unspecified; G40.909 Epilepsy, unspecified, not intractable, without status epilepticus
CPT/HCPCS: 36415; 80053; 80177; 82150; 82550; 83036; 83690; 85027

== ENCOUNTER → 2020-03-26 | Outpatient (CLI) | payer MEDICARE, MEDICAID | END | disposition home or self-care (01) | LOC: NPLAB 16:23 | PROVIDERS: ATTEND Family Medicine | DX: N39.0 Urinary tract infection, site not specified (principal); D64.9 Anemia, unspecified | CPT/HCPCS: 82272 ==

== ENCOUNTER → 2020-03-26 | Outpatient (CLI) | payer MEDICARE, MEDICAID ==
[2020-03-26 03:38] LABS: APPEARANCE,URINE CLOUDY (CLEAR); BILIRUBIN,URINE NEGATIVE (NEGATIVE); UA COLOR YELLOW (YELLOW); UROBILINOGEN,URINE NORMAL (NEGATIVE)
== END | disposition home or self-care (01) ==
LOC: NPLAB 03:00
PROVIDERS: ATTEND Family Medicine
DX: N39.0 Urinary tract infection, site not specified (principal); K86.89 Other specified diseases of pancreas
CPT/HCPCS: 36415; 81000; 82150; 83690; 87077; 87086; 87186

== ENCOUNTER → 2020-03-30 | Outpatient (CLI) | payer MEDICARE, MEDICAID | END | disposition home or self-care (01) | LOC: LAB 12:33 | PROVIDERS: ATTEND Family Medicine | DX: R19.5 Other fecal abnormalities (principal) | CPT/HCPCS: 82272 ==

== ENCOUNTER → 2020-03-31 | Outpatient (CLI) | payer MEDICARE, MEDICAID ==
[2020-03-31 14:24] LABS: MEAN CORP HGB 30.7 pg (26-34); RED CELL DISTRIBUTION WIDTH 15.2 % (11.5-14.5)
== END | disposition home or self-care (01) ==
LOC: NPLAB 14:05
PROVIDERS: ATTEND Family Medicine
DX: K86.89 Other specified diseases of pancreas (principal)
CPT/HCPCS: 36415; 85027

== ENCOUNTER → 2020-04-04 | Outpatient (CLI) | payer MEDICARE, MEDICAID ==
[2020-04-04 11:50] LABS: MEAN CORP HGB 31.3 pg (26-34); RED CELL DISTRIBUTION WIDTH 14.8 % (11.5-14.5)
[2020-04-04 12:02] LABS: CALCIUM 9.4 mg/dL (8.4-10.5); CARBON DIOXIDE 21.6 mmol/L (20.0-32)
== END | disposition home or self-care (01) ==
LOC: NPLAB 10:45
PROVIDERS: ATTEND Family Medicine
DX: E11.8 Type 2 diabetes mellitus with unspecified complications (principal); I50.9 Heart failure, unspecified; K85.01 Idiopathic acute pancreatitis with uninfected necrosis; N17.9 Acute kidney failure, unspecified; Z79.899 Other long term (current) drug therapy
CPT/HCPCS: 80053; 82150; 82306; 82607; 83690; 85027

== ENCOUNTER → 2020-04-22 | Outpatient (CLI) | payer MEDICARE, MEDICAID ==
[2020-04-22 18:51] LABS: MEAN CORP HGB 30.4 pg (26-34)
[2020-04-22 19:08] LABS: CALCIUM 9.7 mg/dL (8.4-10.5); CARBON DIOXIDE 25.5 mmol/L (20.0-32)
== END | disposition home or self-care (01) ==
LOC: NPLAB 18:07
PROVIDERS: ATTEND Family Medicine
DX: E11.8 Type 2 diabetes mellitus with unspecified complications (principal); K86.89 Other specified diseases of pancreas
CPT/HCPCS: 80053; 85027

== ENCOUNTER → 2020-06-17 | Outpatient (CLI) | payer MEDICARE, MEDICAID ==
[~2020-06-17] MED LIST changes: -ASPI-484 PO; +ASPI-485 PO
--- NOTE | 2020-06-17 11:58 | DIREP ---
PROCEDURE:CT ABDOMEN/PELVIS W/ CONTRAST COMPARISON:[facility], CT, CT ABD/PELVIS W/O, 02/22/2020, 02:36 PM. INDICATIONS:K86.89 OTHER SPECIFIED DISEASES OF PANCREAS TECHNIQUE:Axial images were created through the abdomen and pelvis with non-ionic intravenous contrast material. Oral contrast was administered. Sagittal and coronal reconstructions were performed from source images. FINDINGS: LUNG BASES:Normal. No visible pulmonary or pleural disease. LIVER:Normal. No significant liver lesions are identified. BILIARY:The gallbladder is surgically absent. There is no biliary ductal dilatation. PANCREAS:Pseudocysts in the region of the lesser sac noted to measure up to 3.3 x 2.8 cm. Adjacent inflammatory changes of the pancreas are seen. SPLEEN:Normal. No enlargement or focal lesion. ADRENALS:Normal. No mass or enlargement. URINARY TRACT:Normal. No focal lesions or hydronephrosis. AORTA/VASCULAR:There are aortic atherosclerotic calcifications present. No aneurysm. RETROPERITONEUM:Normal. No mass or adenopathy. BOWEL/MESENTERY:There is mild colonic diverticulosis without evidence for diverticulitis. There is no intestinal obstruction, free fluid, free air or mesenteric inflammatory changes. ABDOMINAL WALL:Normal. No mass or hernia. PELVIC ORGANS:The uterus is surgically absent. No visible mass. BONES:Normal for age. No bony lesion or acute fracture. OTHER:The appendix is not identified with certainty. CONCLUSION:Pseudocysts in the region of the lesser sac noted to measure up to 3.3 x 2.8 cm. Adjacent inflammatory changes of the pancreas are seen, compatible with pancreatitis. Dictated by: Manohar Merritt M.D. on 06/17/2020 at 11:44 AM
== END | disposition home or self-care (01) ==
LOC: RAD 15:32
PROVIDERS: ATTEND Family Medicine
DX: K86.3 Pseudocyst of pancreas (principal); K57.30 Diverticulosis of large intestine without perforation or abscess without bleeding; K86.89 Other specified diseases of pancreas
CPT/HCPCS: 74177; Q9965

== ENCOUNTER 2020-08-18 02:18 | Emergency (ER) | payer MEDICARE, MEDICAID ==
[2020-08-18] VITALS (7 sets, daily range): BP systolic 96–150; BP diastolic 46–78
[~2020-08-18 02:18] MED LIST changes: -ASPI-655 PO; +ASPI-929 PO; -LISI1TAB19 PO; +LISI1TAB39 PO
--- NOTE | 2020-08-18 02:20 | NUR ---
ARRIVAL PT ARRIVED TO ER 2 VIA EMS STRETCHER WITH C/O SLURRED SPEECH. EMS STATES PT HAD SLURRED SPEECH AND "SLIGHT FACIAL DROOPING" UPON ARRIVAL. UNKNOWN TIME OF LAST PT WELL. PT HAS HX OF PREVIOUS CVA X2.
--- NOTE | 2020-08-18 02:29 | ER.PDOC ---
General Chief Complaint: Requesting Medical Care Stated Complaint: SLURRED SPEECH Time seen by MD: 02:15 Source: patient, EMS Exam Limitations: no limitations History of Present Illness Initial Comments patient woke from sleep with left facial droop and slurring of speech, patient, per ems patient has less facial droop that when they picked her up. Severity: mild New Weakness: (L) facial Impairments: Impaired Speech Usually: orientedx3 Allergies: Coded Allergies: codeine (Verified Adverse Reaction, Mild, Rash, 03/26/20) Home Meds Active Scripts Cefdinir (CEFDINIR) 300 Mg Capsule, 300 MG PO BID for 3 Days, #6 CAPSULE 0 Refills Prov:MAGUI CONNER MD 02/01/19 Pantoprazole Sodium (PROTONIX) 40 Mg Tablet., 40 MG PO DAILY for 30 Days Prov:TERRENCE TORRES MD 01/30/19 Insulin Glargine,Hum.rec.anlog (LANTUS) 100 Unit/1 Ml Vial, 20 UNIT SQ HS for 14 Days, VIAL Prov:TERRENCE TORRES MD 01/30/19 Aspirin (ASPIRIN EC) 81 Mg Tablet.dr, 81 MG PO DAILY, #30 Prov:TERRENCE TORRES MD 01/30/19 Sacubitril/Valsartan (Entresto 24 mg-26 mg Tablet) 1 Each Tablet, 1 EACH PO BID, #60 TABLET Prov:TERRENCE TORRES MD 01/30/19 Nitroglycerin (NITROSTAT) 0.4 Mg Tab.subl, 0.4 MG SL PRN PRN for CHEST PAIN for 30 Days Prov:TERRENCE TORRES MD 01/30/19 Hydralazine Hcl (HYDRALAZINE HCL) 25 Mg Tablet, 25 MG PO TID, #90 TABLET Prov:TERRENCE TORRES MD 01/30/19 Carvedilol 12.5MG (COREG 12.MG) 12.5 Mg Tablet, 12.5 MG PO BID for 30 Days, TABLET Prov:TERRENCE TORRES MD 01/30/19 Atorvastatin 40MG (LIPITOR 40MG) 40 Mg Tablet, 40 MG PO HS for 30 Days, TABLET Prov:TERRENCE TORRES MD 01/30/19 Ticagrelor (BRILINTA) 90 Mg Tablet, 90 MG PO BID, #30 TABLET Prov:TERRENCE TORRES MD 01/30/19 Levetiracetam (KEPPRA) 500 Mg Tablet, 500 MG PO BID for 30 Days, #60 TABLET 5 Refills Prov:JAIME MATA MD 04/01/17 Reported Medications Umeclidinium Brm/Vilanterol Tr (Anoro Ellipta 62.5-25 Mcg INH) 1 Each Disk.w.dev, 1 EACH IH DAILY24 05/07/18 Albuterol Sulfate (VENTOLIN HFA) 18 Gm Hfa.aer.ad, 18 GM IH Q6HR for SOB 04/16/18 Montelukast Sodium (MONTELUKAST SODIUM) 10 Mg Tablet, 1 TAB PO HS, #30 TAB 5 Refills 04/16/18 Omeprazole (OMEPRAZOLE) 40 Mg Capsule.dr, 40 MG PO DAILY24, #1 04/16/18 Trazodone Hcl (TRAZODONE HCL) 50 Mg Tablet, 1.5 TAB PO HS, #30 TAB 1 Refill 03/29/17 Sertraline Hcl (ZOLOFT) 100 Mg Tablet, 1 TAB PO DAILY, #30 TAB 5 Refills 03/29/17 Past Medical History Medical History: CVA/TIA/stroke, congestive heart failure, COPD, diabetes, GERD, high cholesterol, hypertension, other Surgical History: appendectomy, cholecystectomy Social History Drug Use: none Review of Systems Constitutional: denies chills, denies fever Ears, Nose, Mouth, Throat: denies nose pain, denies nose discharge Respiratory: denies cough; shortness of breath Cardiovascular: denies chest pain, denies palpitations, denies syncope Gastrointestinal: denies abdominal pain, denies diarrhea, denies vomiting Genitourinary: denies dysuria Musculoskeletal: denies back pain, denies neck pain Skin: denies rash Psychiatric/Neurological: denies headache Physical Exam General Appearance: alert, no distress HEENT: no apparent trauma, EOM's intact Neuro/Psych: oriented x3, nml mood/affect, abnml speech Cranial Nerves: nml as tested Cerebellar: nml as tested Peripheral Exam: motor nml, sensation nml Neck: supple Respiratory: wheezing CVS: reg rate & rhythm, heart sounds nml Abdomen: non-tender Skin: color nml Extremities: non-tender, nml ROM, no pedal edema Comments no pronator drift Results/Orders Results/Orders Orders - JIMAYAN HOPE MD Cbc With Auto Diff (08/18/20 02:23) Comprehensive Metabolic Panel (08/18/20 02:23) Creatine Kinase (08/18/20 02:23) Creatine Kinase Mb (08/18/20 02:23) Troponin I (08/18/20 02:23) Probnp B-Type [employer] Emuls[employer] Supervisor (08/18/20 02:23) PT (08/18/20 02:23) Partial Thromboplastin Time. (08/18/20 02:23) Xr Chest 1v (08/18/20 02:23) Ekg-Routine (08/18/20 02:23) Saline Lock (08/18/20 02:23) Urinalysis (08/18/20 02:23) Ct Head Wo Contrast (08/18/20 02:23) Rt O2 Per Hour (08/18/20 02:23) Cta Head (08/18/20 02:43) Cta Neck (08/18/20 02:43) Methylprednisolone Sod Succ (Solu-Medrol (08/18/20 02:45) Albuterol Sulfate (Ventolin Hfa) (08/18/20 03:00) Rt O2 Per Hour (08/18/20 02:45) Water For Injection,Sterile (Water) (08/18/20 02:57) Methylprednisolone Sod Succ (Solu-Medrol (08/18/20 02:58) Arterial Blood Gas (08/18/20 03:09) 0.9 % Sodium Chloride (Ns 1000ml) (08/18/20 03:30) 0.9 % Sodium Chloride (Ns 1000ml) (08/18/20 03:23) Bedside Glucose (08/18/20 04:30) Vital Signs Date Time Temp Pulse Resp B/P (MAP) Pulse Ox O2 Delivery O2 Flow Rate FiO2 08/18/20 04:55 76 18 114/55 (74) 95 Nasal Canula 2.00 08/18/20 04:14 66 18 88 08/18/20 04:03 81 18 127/78 (94) 95 Nasal Canula 5.00 08/18/20 03:38 96.8 68 20 102/61 (75) 88 Nasal Canula 5.00 08/18/20 03:00 62 16 93 08/18/20 02:41 96.8 70 20 08/18/20 02:41 96.8 70 20 128/58 (81) 85 Nasal Canula 5.00 08/18/20 02:33 70 20 85 Administered Medications Medications (Trade) Dose Ordered Sig/Jacques Route PRN Reason Start Time Stop Time Status Last Admin Dose Admin Albuterol Sulfate (Ventolin Hfa) 2 inh OT ONCE IH 08/18/20 03:00 08/18/20 03:01 UNV 08/18/20 03:00 2 INH Methylprednisolone Sodium Succinate (Solu-Medrol) 125 mg STAT STAT IV 08/18/20 02:45 08/18/20 02:46 UNV 08/18/20 03:04 125 MG Sodium Chloride 1,000 ml @ 100 mls/hr OT ONCE IV 08/18/20 03:30 08/18/20 13:29 08/18/20 03:32 100 MLS/HR Laboratory Tests Test 08/18/20 02:45 08/18/20 03:19 08/18/20 04:30 White Blood Count 8.4 10^3/uL (4.5-11.0) Red Blood Count 3.63 10^6/uL (4.00-5.20) L Hemoglobin 11.9 g/dL (12.0-15.0) L Hematocrit 37.3 % (36.0-46.0) Mean Corpuscular Volume 102.8 fL (78-100) H Mean Corpuscular Hemoglobin 32.8 pg (26-34) Mean Corpuscular Hemoglobin Concent 31.9 g/dL (33-36.5) L Red Cell Distribution Width 12.8 % (11.5-14.5) Platelet Count 449 10^3/uL (150-400) H Mean Platelet Volume 9.9 fL (7.8-11.0) Neutrophils (%) (Auto) 71.4 % (41.0-85.0) Lymphocytes (%) (Auto) 21.1 % (24.0-44.0) L Monocytes (%) (Auto) 4.3 % (5.0-12.0) L Neutrophils # (Auto) 6.0 10^3/uL (1.8-7.7) Lymphocytes # (Auto) 1.77 10^3/uL1 (1.0-4.8) Monocytes # (Auto) 0.4 10^3/uL (0.3-0.8) Absolute Immature Granulocyte (auto 0.09 10^3 u/L (0-2) Absolute Eosinophils (auto) 0.1 10^3/uL (0.0-0.2) Immature Granulocytes % 1.10 % (0.00-0.50) H Eosinophils % 1.5 % (0.0-5.0) Basophils % 0.6 % (0.0-0.2) H Basophils # 0.1 10^3/uL (0.0-0.1) Prothrombin Time 12.1 SEC (9.3-11.3) H Prothrombin Time INR (Non-Therap) 1.2 Activated Partial Thromboplast Time 26.0 SEC (24.67-30.72) Sodium Level 143 mmol/L (132-145) Potassium Level 4.3 mmol/L (3.6-5.2) Chloride Level 112.0 mmol/L (96-109) H Carbon Dioxide Level 18.3 mmol/L (20.0-32) L Anion Gap 17.0 Blood Urea Nitrogen 19 mg/dL (7-18) H Creatinine 1.23 mg/dL (0.59-1.40) Estimated GFR () 52.4 (>/=60) Est GFR (CKD-EPI)(Non-Afr Albanian) 43.3 (>/=60) BUN/Creatinine Ratio 15.0 Glucose Level 60 mg/dL (70-110) L Calcium Level 9.4 mg/dL (8.4-10.5) Total Bilirubin 0.2 mg/dL (0.2-1.0) Aspartate Amino Transferase (AST) 41 U/L (0-35) H Alanine Aminotransferase (ALT) 35 U/L (12-78) Alkaline Phosphatase 104 U/L (50-136) Total Creatine Kinase 228 U/L (26-192) H Creatine Kinase MB 5.7 ng/mL (0.5-3.6) H Troponin I 0.02 ng/mL (0.00-0.05) Pro-B-Type Natriuretic Peptide 1613 pg/mL (0-125) H Total Protein 5.9 g/dL (6.4-8.2) L Albumin 2.1 g/dL (3.4-5.0) L Globulin 3.8 Urine Collection Type CCMS Urine Color YELLOW (YELLOW) Urine Appearance SLIGHTLY CLOUDY (CLEAR) Urine Bilirubin NEGATIVE MG/DL (NEGATIVE) Urine Ketones NEGATIVE (NEGATIVE) Urine Specific [place] 1.025 (1.005-1.035) Urine pH 5.0 (5.0-6.0) Urine Protein TRACE (NEGATIVE) H Urine Urobilinogen NORMAL (NEGATIVE) Urine Nitrate NEGATIVE (NEGATIVE) Urine Leukocyte Esterase NEGATIVE (NEGATIVE) Urine Blood NEGATIVE (NEGATIVE) Urine RBC NONE SEEN RBC/HPF (NONE Urine WBC NONE SEEN WBC/HPF (0-2) Urine Squamous Epithelial Cells MANY #/HPF (FEW) Urine Calcium Oxalate Crystals MODERATE (NONE SEEN) Urine Bacteria FEW (NONE SEEN) H Urine Hyaline Casts 2-5 (NONE SEEN) Urine Fine Granular Casts 0-1 Urine Glucose NORMAL (NEGATIVE) POC Glucose 63 (70 - 110) L Progress Progress not a tpa candidate as woke with symptoms and patient symptoms improving. discussed with [facility] call no beds, discussed with raul nuno gayle [employer] accepting physician. discussed with information manager at [facility]ameson who feels that patient should be transferred secondary to the cta results. EKG/XRAY/CT/US EKG: NSR, no ST T wave changes ER DEPART Departure Time of Disposition: 04:52 Disposition: 02 XFER SHT-TRM HOSP Impression: Primary Impression: Stroke Condition: Improved Referrals: PCP,UNKNOWN (PCP) PRIMARY CARE PROVIDER Duration or Time Spent with Pa: 15 AYAN FERNANDEZ MD Aug 18, 2020 02:29
--- NOTE | 2020-08-18 02:44 | PCM.EKG ---
[facility] Test Date: 2020-08-18 Test Time: 02:42:14 Pat Name: HERBER ZARATE Department: Room: Gender: F [employer] Roofer: MERRITT : 1950 Requested By: BALJEET LANG Order Number: [id number] Reading MD: Baljeet Lang Measurements Intervals Carriere Rate: 63 P: 100 NV: 129 QRS: 89 QRSD: 96 T: 81 QT: 445 QTc: 456 Interpretive Statements Sinus rhythm Borderline right axis deviation no acute st segment changes. Electronically Signed On 08-18-2020 3:04:40 CDT by Baljeet Lang Please click the below link to view image of tracing.
[2020-08-18 02:54] LABS: BASOPHIL # 0.1 10^3/uL (0.0-0.1); BASOPHIL % 0.6 % (0.0-0.2); EOSINOPHIL # 0.1 10^3/uL (0.0-0.2); EOSINOPHIL % 1.5 % (0.0-5.0); LYMPHOCYTES # 1.77 10^3/uL1 (1.0-4.8); LYMPHOCYTES % 21.1 % (24.0-44.0); MEAN CORP HGB 32.8 pg (26-34); MONOCYTES # 0.4 10^3/uL (0.3-0.8); MONOCYTES % 4.3 % (5.0-12.0); NEUTROPHILS % 71.4 % (41.0-85.0); PLATELET COUNT 449 10^3/uL (150-400); RED CELL DISTRIBUTION WIDTH 12.8 % (11.5-14.5)
[2020-08-18] MEDS ORDERED: VENTOLIN HFA IH ONE (02:57)
[2020-08-18] MEDS ORDERED: WATER 20 ML ONE (02:57)
[2020-08-18] MEDS ORDERED: SOLU-MEDROL ONE (02:58)
[2020-08-18] MEDS: VENTOLIN HFA IH ONE (03:00)
[2020-08-18] MEDS: SOLU-MEDROL IV STA (03:04)
--- NOTE | 2020-08-18 03:05 | NUR ---
CTA CALLED ANA LILIA TO NOTIFY NEED OF CTA AT THIS TIME.
--- NOTE | 2020-08-18 03:12 | DIREP ---
PROCEDURE:CHEST 1 VIEW COMPARISON:[facility], CR, XRAY CHEST SINGLE VW, 02/12/2019, 07:07 PM. INDICATIONS:slurring of speech FINDINGS: LUNGS/PLEURA:Lungs are hyperexpanded which can be seen with COPD/emphysema. No focal infiltrate seen. Calcified granuloma suspected in left lung base. VASCULATURE:Normal. Unremarkable pulmonary vasculature. CARDIAC:Moderate cardiomegaly. MEDIASTINUM:Atherosclerotic aorta with no visible aneurysm. BONES:Normal. No fracture or visible bony lesion. OTHER:Negative. CONCLUSION: 1. Pulmonary hyperexpansion suggesting COPD/emphysema. 2. No focal infiltrate. Dictated by: Sergio Mcgowan M.D. on 08/18/2020 at 03:10 AM
--- NOTE | 2020-08-18 03:15 | DIREP ---
PROCEDURE:CT HEAD OR BRAIN W/O CONTRAST COMPARISON:[facility], CT, CT HEAD BRAIN W/O CONTRAST, 08/11/2018, 09:31 PM. INDICATIONS:slurring of speech TECHNIQUE:CT images were created without intravenous contrast. FINDINGS: VENTRICLES:There is mild prominence of the ventricles and cortical sulci consistent with age related involutional changes. 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 Multiple remote lacunar infarctions in the basal ganglia. CEREBELLUM:Negative. BRAINSTEM:Negative. BASAL CISTERNS:Negative. SKULL:Normal. SINUSES:Ethmoid sinus partially opacified. Small amount of fluid in left sphenoid sinus. OTHER:Intracranial carotid siphon atherosclerotic calcifications. CONCLUSION: 1. No acute intracranial abnormality. 2. Old right parietal cortical and multiple remote lacunar infarctions. 3. Mild generalized cerebral atrophy. 4. Paranasal sinus disease. Dictated by: Sergio Mcgowan M.D. on 08/18/2020 at 03:12 AM
[2020-08-18 03:18] LABS: CALCIUM 9.4 mg/dL (8.4-10.5); CARBON DIOXIDE 18.3 mmol/L (20.0-32)
[2020-08-18] MEDS ORDERED: NS 1000ML 1,000 ML ONE (03:23)
[2020-08-18] MEDS: NS 1000ML 1,000 ML IV ONE (03:32)
[2020-08-18 03:36] LABS: APPEARANCE,URINE SLIGHTLY CLOUDY (CLEAR); BILIRUBIN,URINE NEGATIVE (NEGATIVE); UA COLOR YELLOW (YELLOW); UROBILINOGEN,URINE NORMAL (NEGATIVE)
--- NOTE | 2020-08-18 03:40 | NUR ---
LAWANDA SUNG IN PT ROOM FOR CTA AT THIS TIME.
--- NOTE | 2020-08-18 03:47 | NUR ---
RAD PT TO CT WITH ANA LILIA VIA STRETCHER AT THIS TIME.
--- NOTE | 2020-08-18 04:02 | NUR ---
ROOM PT BACK TO ROOM AT THIS TIME. BEAR HUGGER AND WARM FLUIDS INITIATED AGAIN AT THIS TIME.
--- NOTE | 2020-08-18 04:07 | NUR ---
JUICE PT GIVEN GRAPE JUICE AT THIS TIME.
--- NOTE | 2020-08-18 04:33 | NUR ---
CRACKERS PT GIVEN PEANUT BUTTER AND CRACKERS AND GRAPE JUICE AT THIS TIME.
--- NOTE | 2020-08-18 04:39 | DIREP ---
PROCEDURE:CTA HEAD NECK COMPARISON:None. INDICATIONS:slurring of speech and facial droop TECHNIQUE:After obtaining the patient's consent, CTA images of the head and neck were obtained with non-ionic contrast, including multi-planar/3-D imaging to optimize visualization of vascular anatomy. FINDINGS: NECK CTA: AORTIC ARCH:Aortic arch clipped therefore great vessel origins not well assessed. RIGHT CAROTID SYSTEM:50% stenosis proximal right internal carotid artery, image 99 series 8. LEFT CAROTID SYSTEM:Focus of calcification in the proximal left ICA producing approximately 20% stenosis. Atherosclerotic calcifications in the left carotid bulb without significant stenosis. VERTEBRAL ARTERIES: Unremarkable. NECK TISSUES:Unremarkable. LUNGS:Unremarkable. MEDIASTINUM:Unremarkable. BONE:Cervical spondylosis most pronounced at C3-4 and C5-6. HEAD CTA: INTERNAL CAROTIDS:Scattered internal carotid atherosclerotic calcifications, given small vessel size quantitation of stenosis is limited but felt to be less than 50%. ANTERIOR CEREBRALS:Unremarkable. MIDDLE CEREBRALS:Unremarkable. VERTEBRALS/BASILAR:Unremarkable. POSTERIOR CEREBRALS: origin in the right posterior cerebral artery which is an anatomic variant. PCOMM'S:Present bilaterally. CONCLUSION: 1. No large vessel occlusion seen within the neck or brain. 2. Scattered carotid atherosclerotic calcifications with up to 50% stenosis in the proximal right ICA. 3. Scattered intracranial atherosclerotic calcifications. Dictated by: Sergio Mcgowan M.D. on 08/18/2020 at 04:26 AM
--- NOTE | 2020-08-18 04:46 | NUR ---
BSA DR. FERNANDEZ ON PHONE WITH [facility] AT THIS TIME REGARDING TRANSFER. [facility] NOT ACCEPTING TRANSFERS AT THIS TIME.
--- NOTE | 2020-08-18 04:47 | NUR ---
KLARISSA FERNANDEZ ON PHONE SABINA CYR REGARDING TRANSFER AT THIS TIME.
--- NOTE | 2020-08-18 04:50 | NUR ---
UPDATE PT STATES "I FEEL SO MUCH BETTER NOW THAN WHEN I GOT HERE." PT RESTING IN BED ON LEFT LATERAL SIDE AT THIS TIME.
--- NOTE | 2020-08-18 05:38 | NUR ---
TRANSFER EMS HERE FOR TRANSFER AT THIS TIME. REPORT GIVEN TO [facility].
--- NOTE | 2020-08-18 05:59 | NUR ---
KLARISSA CALLED AND GAVE REPORT TO TRINITY QUINN AT THIS TIME.
[2020-08-18 06:52] LABS: ABG PCO2 35.9 mmHg (35.0-45.0); ABG PH 7.214 (7.350-7.450); pO2 58.2 mmHg (80.0-100.0)
[2020-08-18 06:53] LABS: BE(B) -12.7 mmol/L (-2.0-2.0); HCO3act 14.2 mmol/L (22.0-26.0)
== END 2020-08-18 05:50 | disposition short-term general hospital (02) ==
LOC: EDBD 02:18 → ER 02:18
DX: I63.9 Cerebral infarction, unspecified (principal); I11.0 Hypertensive heart disease with heart failure; I50.9 Heart failure, unspecified; J44.9 Chronic obstructive pulmonary disease, unspecified; E11.9 Type 2 diabetes mellitus without complications; E78.00 Pure hypercholesterolemia, unspecified; K21.9 Gastro-esophageal reflux disease without esophagitis; Z79.4 Long term (current) use of insulin; Z79.82 Long term (current) use of aspirin; Z79.899 Other long term (current) drug therapy; Z86.73 Personal history of transient ischemic attack (TIA), and cerebral infarction without residual deficits; Z88.5 Allergy status to narcotic agent; Z90.49 Acquired absence of other specified parts of digestive tract
CPT/HCPCS: 36415; 36600; 70450; 70496; 70498; 71045; 80053; 81000; 82550; 82553; 82803; 82948 ×2; 83880; 84484; 85025; 85610; 85730; 93005; 96361; 96374; 99285; J2930; J7030; J7611; Q9965; A4216

== ENCOUNTER 2020-09-27 05:03 | Inpatient (IN) | payer MEDICARE, MEDICAID ==
[~2020-09-27] VITALS: Ht 167.6 cm; Wt 64.9 kg
[2020-09-27] VITALS (38 sets, daily range): BP systolic 76–122; BP diastolic 34–92
[~2020-09-27 05:03] MED LIST changes: -ALEN70TA6 PO; +ALEN70TA65 PO; -RISP1TAB3 PO; +RISP1TAB90 PO
[2020-09-27] MEDS ORDERED: DEXTROSE 10%-WATER IV SOLUTION 500 ML IV STA (05:22)
--- NOTE | 2020-09-27 05:23 | NUR ---
BEAR KESHAV PLACED ON PATIENT
--- NOTE | 2020-09-27 05:27 | NUR ---
RT CALLED CALLED LIZZETH FOR EKG
--- NOTE | 2020-09-27 05:33 | NUR ---
RT IN ROOM FOR EKG
[2020-09-27] MEDS ORDERED: DEXTROSE 10%-WATER IV SOLUTION 500 ML IV ONE (05:34)
--- NOTE | 2020-09-27 05:45 | NUR ---
RAPID COVID PATIENT SWABBED FOR COVID RAPID PER EDP, TAKEN TO LAB
[2020-09-27] MEDS ORDERED: NS 1000ML 1,000 ML IV STA (05:57)
--- NOTE | 2020-09-27 05:58 | ER.PDOC ---
General Chief Complaint: General Complaint Stated Complaint: HYPOGLYCEMIA TRAVEL OUT OF US: No Time seen by MD: 05:51 Source: patient, EMS, EMS notes reviewed Exam Limitations: no limitations History of Present Illness Initial Comments Low blood sugar of 44 at home, patient is also weak, has not been eating and drinking well because of loss of appetite. Patient given an amp of D50. Severity: moderate Associated Symptoms: weakness Allergies: Coded Allergies: codeine (Verified Adverse Reaction, Mild, Rash, 03/26/20) Home Meds Active Scripts Cefdinir (CEFDINIR) 300 Mg Capsule, 300 MG PO BID for 3 Days, #6 CAPSULE 0 Refills Prov:MAGUI CONNER MD 02/01/19 Pantoprazole Sodium (PROTONIX) 40 Mg Tablet.dr, 40 MG PO DAILY for 30 Days Prov:TERRENCE TORRES MD 01/30/19 Insulin Glargine,Hum.rec.anlog (LANTUS) 100 Unit/1 Ml Vial, 20 UNIT SQ HS for 14 Days, VIAL Prov:TERRENCE TORRES MD 01/30/19 Aspirin (ASPIRIN EC) 81 Mg Tablet.dr, 81 MG PO DAILY, #30 Prov:TERRENCE TORRES MD 01/30/19 Sacubitril/Valsartan (Entresto 24 mg-26 mg Tablet) 1 Each Tablet, 1 EACH PO BID, #60 TABLET Prov:TERRENCE TORRES MD 01/30/19 Nitroglycerin (NITROSTAT) 0.4 Mg Tab.subl, 0.4 MG SL PRN PRN for CHEST PAIN for 30 Days Prov:TERRENCE TORRES MD 01/30/19 Hydralazine Hcl (HYDRALAZINE HCL) 25 Mg Tablet, 25 MG PO TID, #90 TABLET Prov:TERRENCE TORRES MD 01/30/19 Carvedilol 12.5MG (COREG 12.MG) 12.5 Mg Tablet, 12.5 MG PO BID for 30 Days, TABLET Prov:TERRENCE TORRES MD 01/30/19 Atorvastatin 40MG (LIPITOR 40MG) 40 Mg Tablet, 40 MG PO HS for 30 Days, TABLET Prov:TERRENCE TORRES MD 01/30/19 Ticagrelor (BRILINTA) 90 Mg Tablet, 90 MG PO BID, #30 TABLET Prov:TERRENCE TORRES MD 01/30/19 Levetiracetam (KEPPRA) 500 Mg Tablet, 500 MG PO BID for 30 Days, #60 TABLET 5 Refills Prov:JAIME MATA MD 04/01/17 Reported Medications Umeclidinium Brm/Vilanterol Tr (Anoro Ellipta 62.5-25 Mcg INH) 1 Each Disk.w.dev, 1 EACH IH DAILY24 05/07/18 Albuterol Sulfate (VENTOLIN HFA) 18 Gm Hfa.aer.ad, 18 GM IH Q6HR for SOB 04/16/18 Montelukast Sodium (MONTELUKAST SODIUM) 10 Mg Tablet, 1 TAB PO HS, #30 TAB 5 Refills 04/16/18 Omeprazole (OMEPRAZOLE) 40 Mg Capsule.dr, 40 MG PO DAILY24, #1 04/16/18 Trazodone Hcl (TRAZODONE HCL) 50 Mg Tablet, 1.5 TAB PO HS, #30 TAB 1 Refill 03/29/17 Sertraline Hcl (ZOLOFT) 100 Mg Tablet, 1 TAB PO DAILY, #30 TAB 5 Refills 03/29/17 Past Medical History Medical History: asthma, CVA/TIA/stroke, cardiac problems, congestive heart failure, COPD, diabetes Surgical History: appendectomy, cholecystectomy, hysterectomy Social History Alcohol Use: none Drug Use: none Review of Systems Constitutional: see HPI EENTM: no symptoms reported Respiratory: no symptoms reported Cardiovascular: no symptoms reported Gastrointestinal: no symptoms reported Genitourinary: no symptoms reported All Other Systems: Reviewed and Negative Physical Exam General Appearance: No Apparent Distress, WD/WN Neck: Non-Tender, Full Range of Motion, Supple, Normal Inspection Respiratory: chest non-tender, lungs clear, no respiratory distress, decreased breath sounds CVS: reg rate & rhythm, no murmur, no gallop, pulses nml, nml capillary refill Gastrointestinal: Normal Bowel Sounds, No Organomegaly, No Pulsatile Mass, Non Tender Back: Normal Inspection, No CVA Tenderness Extremities: Normal Range of Motion, Non-Tender, Normal Inspection, No Pedal Edema Neurologic/Psychiatric: lead teacher II-XII NML as Tested, No Motor/Sensory Deficits, Alert, Normal Mood/Affect Skin: Normal Color Results/Orders Results/Orders Orders - RICKI MEADE MD Cbc With Auto Diff (09/27/20 05:22) Comprehensive Metabolic Panel (09/27/20 05:22) Creatine Kinase (09/27/20 05:22) Creatine Kinase Mb (09/27/20 05:22) Probnp B-Type Echometer Engineer (09/27/20 05:22) Troponin I (09/27/20 05:22) PT (09/27/20 05:22) Partial Thromboplastin Time. (09/27/20 05:22) Ekg-Routine (09/27/20 05:22) Xr Chest 1v (09/27/20 05:22) Lactic Acid(Ml) (09/27/20 05:22) Procalcitonin (09/27/20 05:22) Urinalysis (09/27/20 05:22) Dextrose 10 % In Water (Dextrose 10%-Michaela (09/27/20 05:22) Blood Culture (09/27/20 05:22) Arterial Blood Gas (09/27/20 05:35) Dextrose 10 % In Water (Dextrose 10%-Michaela (09/27/20 05:34) Covid19 Antigen Gerda Claudia (09/27/20 05:46) Ferritin(Ml) (09/27/20 05:52) Lactate Dehydrogenase (09/27/20 05:52) C-Reactive Protein (09/27/20 05:52) 0.9 % Sodium Chloride (Ns 1000ml) (09/27/20 05:57) Norepinephrine Bitartrate (Levophed) (09/27/20 06:02) 0.9 % Sodium Chloride (Ns 250ml) (09/27/20 06:26) Norepinephrine Bitartrate (Levophed) (09/27/20 06:27) Bedside Glucose (09/27/20 06:42) Vital Signs Date Time Temp Pulse Resp B/P (MAP) Pulse Ox O2 Delivery O2 Flow Rate FiO2 09/27/20 06:56 57 76/34 (48) 98 Nasal Canula 2.00 09/27/20 06:14 57 16 84/40 (55) 94 Room Air 09/27/20 05:21 94.8 48 16 94 09/27/20 05:21 48 16 09/27/20 05:21 48 16 76/39 (51) 94 Room Air Administered Medications Medications (Trade) Dose Ordered Sig/Jacques Route PRN Reason Start Time Stop Time Status Last Admin Dose Admin Dextrose 500 ml @ 100 mls/hr STAT STAT IV 09/27/20 05:22 09/27/20 10:21 09/27/20 05:44 100 MLS/HR Norepinephrine Bitartrate 8 mg/ Sodium Chloride 250 ml @ 0 mls/hr STAT STAT IV 09/27/20 06:02 09/27/20 06:03 DC 09/27/20 06:30 3.75 MLS/HR Sodium Chloride 1,000 ml @ 1,200 mls/hr Q50M STAT IV 09/27/20 05:57 09/27/20 06:46 UNV 09/27/20 06:12 1,200 MLS/HR Laboratory Tests Test 09/27/20 05:35 09/27/20 05:49 09/27/20 06:00 Prothrombin Time 13.3 SEC (9.3-11.3) H Prothrombin Time INR (Non-Therap) 1.3 Activated Partial Thromboplast Time 26.7 SEC (24.67-30.72) Blood Gas Sample Site LB Blood pH 7.337 (7.350-7.450) Blood Gas PCO2 35.2 mmHg (35.0-45.0) Blood Gas PO2 58.3 mmHg (80.0-100.0) L Blood Gas HCO3 18.4 mmol/L (22.0-26.0) L Blood Gas Base Excess -6.6 mmol/L (-2.0-2.0) L Jose Test N/A Arterial Blood Oxygen Saturation 89.9 % (94.0-97.00) L Deoxyhemoglobin 9.7 % (0.0-5.0) H Carboxyhemoglobin 4.0 % (0.0-3.9) H Methemoglobin 0.4 % (0.00-5.0) Total Hemoglobin 10.9 % (12.0-17.8) L Total Oxygen Concentration 13.2 % (13.5-17.5) L Blood Gas Temperature 35 Oxygen Delivery Method ROOM AIR FiO2 21 % (20-101) Total Carbon Dioxide 19.5 mmol/L (23-27) L White Blood Count 6.3 10^3/uL (4.5-11.0) Red Blood Count 3.29 10^6/uL (4.00-5.20) L Hemoglobin 10.5 g/dL (12.0-15.0) L Hematocrit 31.6 % (36.0-46.0) L Mean Corpuscular Volume 96.0 fL (78-100) Mean Corpuscular Hemoglobin 31.9 pg (26-34) Mean Corpuscular Hemoglobin Concent 33.2 g/dL (33-36.5) Red Cell Distribution Width 12.7 % (11.5-14.5) Platelet Count 200 10^3/uL (150-400) Mean Platelet Volume 12.0 fL (7.8-11.0) H Neutrophils (%) (Auto) 46.7 % (41.0-85.0) Lymphocytes (%) (Auto) 38.8 % (24.0-44.0) Monocytes (%) (Auto) 9.7 % (5.0-12.0) Neutrophils # (Auto) 2.9 10^3/uL (1.8-7.7) Lymphocytes # (Auto) 2.43 10^3/uL1 (1.0-4.8) Monocytes # (Auto) 0.6 10^3/uL (0.3-0.8) Absolute Immature Granulocyte (auto 0.04 10^3 u/L (0-2) Absolute Eosinophils (auto) 0.2 10^3/uL (0.0-0.2) Immature Granulocytes % 0.60 % (0.00-0.50) H Eosinophils % 3.4 % (0.0-5.0) Basophils % 0.8 % (0.0-0.2) H Basophils # 0.1 10^3/uL (0.0-0.1) Sodium Level 140 mmol/L (132-145) Potassium Level 2.9 mmol/L (3.6-5.2) L Chloride Level 114.0 mmol/L (96-109) H Carbon Dioxide Level 21.0 mmol/L (20.0-32) Anion Gap 7.9 Blood Urea Nitrogen 25 mg/dL (7-18) H Creatinine 1.34 mg/dL (0.59-1.40) Estimated GFR () 47.5 (>/=60) Est GFR (CKD-EPI)(Non-Afr [place]i) 39.2 (>/=60) BUN/Creatinine Ratio 18.0 Glucose Level 174 mg/dL (70-110) H Lactic Acid Level 1.0 mmol/L (0.5-1.9) Calcium Level 8.0 mg/dL (8.4-10.5) L Ferritin 434 ng/mL (8-252) H Total Bilirubin 0.2 mg/dL (0.2-1.0) Aspartate Amino Transferase (AST) 29 U/L (0-35) Alanine Aminotransferase (ALT) 16 U/L (12-78) Alkaline Phosphatase 80 U/L (50-136) Lactate Dehydrogenase 139 U/L (81-234) Total Creatine Kinase 44 U/L (26-192) Creatine Kinase MB < 0.5 ng/mL (0.5-3.6) L Troponin I 0.03 ng/mL (0.00-0.05) C-Reactive Protein 0.14 mg/dL (0.00-5.00) Pro-B-Type Natriuretic Peptide 926 pg/mL (0-125) H Total Protein 3.2 g/dL (6.4-8.2) L Albumin 1.2 g/dL (3.4-5.0) L Globulin 2.0 Albumin/Globulin Ratio 0.600 Procalcitonin < 0.05 ng/mL (0.05-0.5) L SARS-CoV-2 Antigen (Rapid) NEGATIVE (NEGATIVE) EKG/XRAY/CT/US EKG: NSR, no ST T wave changes EKG Comments: Rate 47, normal axis XRAY: chest (No active disease) ER DEPART Departure Time of Disposition: 07:02 Disposition: 09 ADMITTED INPATIENT Impression: Primary Impression: Hypovolemic shock Additional Impressions: Hypoglycemia Hypothermia Protein-energy malnutrition Hypokalemia Condition: Critical Referrals: PCP,UNKNOWN (PCP) PRIMARY CARE PROVIDER Duration or Time Spent with Pa: 60 min Critical Care Note Total Time (mins): 60 Problem Qualifiers Additional Impressions: Hypothermia Encounter type: initial encounter Qualified Codes: T68.XXXA - Hypothermia, initial encounter Protein-energy malnutrition Protein-calorie malnutrition severity: severe Qualified Codes: E43 - Unspecified severe protein-calorie malnutrition RICKI MEADE MD Sep 27, 2020 05:58
[2020-09-27] MEDS ORDERED: LEVOPHED 8 MG in NS 250ML 250 ML IV STA (06:02)
[2020-09-27 06:03] LABS: ABG PCO2 35.2 mmHg (35.0-45.0); ABG PH 7.337 (7.350-7.450); BE(B) -6.6 mmol/L (-2.0-2.0); HCO3act 18.4 mmol/L (22.0-26.0); pO2 58.3 mmHg (80.0-100.0)
--- NOTE | 2020-09-27 06:05 | NUR ---
EMS NS 1000ML BOLUS STOPPED @ 06
--- NOTE | 2020-09-27 06:05 | NUR ---
LEVOPHED PATIENT CONSISTENTLY RUNNING 70s SBP over 40s DBP, DR. MEADE NOTIFIED, THIS NURSE REQUESTED TO START LEVOPHED, DR. MEADE SUGGESTED TO INFUSE ANOTHER 500CC BOLUS, RECHECK BLOOD PRESSURE AND THEN ADMINISTER LEVOPHED IF NEEDED.
--- NOTE | 2020-09-27 06:08 | PCM.EKG ---
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
[2020-09-27 06:10] LABS: BASOPHIL # 0.1 10^3/uL (0.0-0.1); BASOPHIL % 0.8 % (0.0-0.2); EOSINOPHIL # 0.2 10^3/uL (0.0-0.2); EOSINOPHIL % 3.4 % (0.0-5.0); LYMPHOCYTES # 2.43 10^3/uL1 (1.0-4.8); LYMPHOCYTES % 38.8 % (24.0-44.0); MEAN CORP HGB 31.9 pg (26-34); MONOCYTES # 0.6 10^3/uL (0.3-0.8); MONOCYTES % 9.7 % (5.0-12.0); NEUTROPHIL # 2.9 10^3/uL (1.8-7.7); NEUTROPHILS % 46.7 % (41.0-85.0); PLATELET COUNT 200 10^3/uL (150-400); RED CELL DISTRIBUTION WIDTH 12.7 % (11.5-14.5)
--- NOTE | 2020-09-27 06:10 | NUR ---
XRAY IN ROOM FOR IMAGING
--- NOTE | 2020-09-27 06:25 | DIREP ---
PROCEDURE:CHEST 1 VIEW COMPARISON:[facility], CR, XRAY CHEST SINGLE VW, 08/18/2020, 02:08 AM. INDICATIONS:Weakness FINDINGS: LUNGS/PLEURA:Hyperaeration consistent with COPD. No new opacities. VASCULATURE:Normal. Unremarkable pulmonary vasculature. CARDIAC:Normal. No cardiac silhouette abnormality or cardiomegaly. MEDIASTINUM:Calcified aortic arch. BONES:Normal. No fracture or visible bony lesion. OTHER:Monitor leads in place. CONCLUSION:COPD with no acute cardiopulmonary abnormalities. No change from previous study. Dictated by: Patrick Pratt M.D. on 09/27/2020 at 06:22 AM
[2020-09-27] MEDS ORDERED: NS 250ML 250 ML IV ONE (06:26)
[2020-09-27] MEDS ORDERED: LEVOPHED ONE (06:27)
[2020-09-27 06:28] LABS: ALANINE AMINOTRANSFERASE(ML) 16 U/L (12-78); ALKALINE PHOSPHATASE 80 U/L (50-136); ASPARTATE AMINO TRANSFERASE 29 U/L (0-35); GLUCOSE 174 mg/dL (70-110)
--- NOTE | 2020-09-27 06:55 | NUR ---
LEVO LEVO INCREASED TO 3MCG/MIN, BP 76/34. BLOOD SUGAR 178.
--- NOTE | 2020-09-27 07:00 | NUR ---
PICC CALLED ABELARDO CANAS RN FOR PICC LINE REQUESTED BY DR JAMIL.
--- NOTE | 2020-09-27 07:04 | NUR ---
ADMIT DR JAMIL HAS ACCEPTED PT, CALLED ICU FOR BED IN COVID UNIT D/T PT BEING A PUI. AWAITING CALL BACK AFTER KEVIN RN CALLS AND TALKS TO DIRECTED.
[2020-09-27] MEDS ORDERED: POTASSIUM CHLORIDE PO STA (07:07)
[2020-09-27] MEDS ORDERED: ROCEPHIN 1,000 MG in NS 100ML 100 ML IV STA (07:07)
[2020-09-27 07:13] LABS: APPEARANCE,URINE CLEAR (CLEAR); BILIRUBIN,URINE SMALL MG/DL (NEGATIVE); UA COLOR YELLOW (YELLOW); UROBILINOGEN,URINE 0.2 (NEGATIVE)
--- NOTE | 2020-09-27 07:15 | NUR ---
STATUS PT WILL NOT BE A PUI, ROOM ASSIGNED FOR 234A.
[2020-09-27] MEDS ORDERED: SOLU-MEDROL IV STA (07:18)
[2020-09-27] MEDS ORDERED: SOLU-MEDROL ONE (07:27)
[2020-09-27] MEDS ORDERED: POTASSIUM CHLORIDE ONE (07:27)
[2020-09-27] MEDS ORDERED: NS 100ML 100 ML IV ONE (07:27)
[2020-09-27] MEDS ORDERED: ROCEPHIN ONE (07:27)
[2020-09-27] MEDS ORDERED: NS 1000ML 1,000 ML IV ONE (07:30)
--- NOTE | 2020-09-27 07:30 | NUR ---
STATUS PT WILL BE HELD IN ED UNTIL ICU BED AVAILABLE BECAUSE SHE WILL BE A PUI. LEVO UP TO 4 MCG/MIN.
--- NOTE | 2020-09-27 09:00 | NUR ---
CVL DR MIDDLETON AT BEDSIDE TO PLACE R IJ CVL. PORTS FLUSHED WITH STNS AFTER ADEQUATE BLOOD RETURN NOTED X3, PT TOLERATED WELL. 23CM AT SKIN NOTED.
--- NOTE | 2020-09-27 10:09 | DIREP ---
PROCEDURE:CHEST 1 VIEW COMPARISON:[facility], CR, XRAY CHEST SINGLE VW, 09/27/2020, 05:42 AM. [facility], CR, XRAY CHEST SINGLE VW, 08/18/2020, 02:08 AM. INDICATIONS:CENTRAL LINE PLACEMENT FINDINGS: LUNGS/PLEURA:There is hyperinflation of the lung wood consistent with COPD. No infiltrates are seen. VASCULATURE:Normal. Unremarkable pulmonary vasculature. CARDIAC:Normal. No cardiac silhouette abnormality or cardiomegaly. MEDIASTINUM:Normal. No visible mass or adenopathy. BONES:A mild dextroscoliosis is seen of the thoracic spine. OTHER:A right jugular central line has been placed with the tip overlying the position of the right atrium. CONCLUSION:Interval placement of a right jugular central line with the tip overlying the position of the right atrium. No pneumothorax is seen. There is hyperinflation of the lung wood consistent with chronic obstructive pulmonary disease. Dictated by: Arnol Dillon M.D. on 09/27/2020 at 10:05 AM
--- NOTE | 2020-09-27 11:30 | NUR ---
STATUS LEVO UP TO 8MCG/MIN.
--- NOTE | 2020-09-27 12:08 | NUR ---
DEXTROSE D10 DRIP DOWN TO 25CC/HR. BLOOD SUGAR WAS 279.
--- NOTE | 2020-09-27 12:12 | NUR ---
LEVO LEVO UP TO 10MCG/MIN.
[2020-09-27] MEDS ORDERED: NS 1000ML/KCL 20MEQ 1,000 ML IV ONE (12:13)
[2020-09-27] MEDS: NS 1000ML/KCL 20MEQ 1,000 ML IV SCH ×2 (12:33→23:42)
--- NOTE | 2020-09-27 13:30 | NUR ---
status PT HAD BM, LINENS CHANGED, PERICARE GIVEN.
--- NOTE | 2020-09-27 14:30 | NUR ---
STATUS PT RESTING ON RIGHT SIDE WITH EYES CLOSED.
--- NOTE | 2020-09-27 16:30 | NUR ---
ADMIT PT TAKEN TO ICU4 VIA STRETCHER IN STABLE CONDITION. REPORT GIVEN TO TRINITY BROWN.
[2020-09-27] MEDS ORDERED: LANTUS SQ STA (21:47)
[2020-09-27] MEDS ORDERED: LEVOPHED 8 MG in NS 250ML 250 ML IV SCH (22:00)
[2020-09-27] MEDS ORDERED: HUMALOG SQ ONE (22:00)
--- NOTE | 2020-09-27 22:08 | NUR ---
NOTIFIED DR JASON OF BLOOD GLUCOSE 345 RECEIVED NEW ORDER, LANTUS 10 UNITS SQ X1, AND LISPRO 3 UNITS SQ X1
--- NOTE | 2020-09-27 22:31 | PCM.HP ---
HISTORY & PHYSICAL HISTORY & PHYSICAL DATE OF ADMISSION: 09/27/20 CHIEF COMPLAINT: Lethargy, low blood sugar HISTORY OF PRESENT ILLNESS: Ms. Sally Cerrato is a very pleasant 70 y/o F with PMHx as below, presenting with reports of months of lethargy and poor PO intake at home. She has not had an appetite. She came to the ED for profound generalized weakness and a blood sugar of 44. She has been taking her blood pressure meds and insulin daily. She lives alone, and has a walker at home. She is not on oxygen at home. She is having a difficult time getting around at home. She denies headache, seizures, neck stiffness, confusion, asymmetric weakness of extremities, facial droop or change in her speech--she has difficulty with hoarseness and word finding for >30 years now and reports is at her baseline. She denies chest pain or difficult breathing, palpitations or syncope. She has not had dizziness. She denies dysuria, abd pain, flank pain, n/v/d or bleeding. Denies coughing or choking with food at home. Levophed started in ED for hypotension and RIJ TLC placed in ED without complications noted. She was in the ER until late afternoon when she was transferred to our care in the ICU. ALLERGIES: Codeine CURRENT MEDICATIONS: Awaiting med rec review, will reconcile when completed. 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 PHYSICAL EXAMINATION: GENERAL: Chronically ill appearing, comfortable, NAD VITAL SIGNS: initial VS in ED--> T 94.8F, HR 48, RR 16, BP 79/31, O2 94% on RA; VS this evening in ICU--> HR 59, RR 20, BP 112/55, O2 100% on 2L HEENT: PERRL, EOMI, sclera nonicteric, MMM, poor dentition NECK: Supple, no JVD, RIJ TLC in place without surrounding hematoma LUNGS:CTAB, nonlabored on RA HEART: RRR ABDOMEN: Soft, NTND, no bruising noted EXTREMITIES: Thin, muscle atrophy noted, no edema, nml pulses NEUROLOGIC: AOx4, nml strength/sensation BLE, no facial droop, neg menigeal signs easily moves neck, +hoarseness and some slow speech reported as baseline. LABORATORY DATA: WBC 6.3, Hgb 10.5, Hct 31.6, Plt 200, MCV 96 pH 7.337, pCO2 35.2, pO2 58.3, HCO3 18.4 INR 1.3 Na 140, K 2.9, Cl 114, CO2 21, BUN 25, Cr 1.34, Glc 174, Ca 8.0 Tbili 0.2, AST 29, ALT 16, ALP 80 LA 1.0 Procal <0.05 CK 44, CKMB <0.5, Trop 0.03, BNP 926 Total prot 3.2, alb 1.2 Ferritin 434, LDH 139, CRP 0.14 Rapid covid neg UA small bili, neg prot, neg nitr, neg LE CXR NAD EKG sinus bradycardia, QTc 462, rate 47 IMPRESSION/PLAN: Shock, undifferentiated as of yet--suspect this is primarily driven by hypovolemia and hypoalbuminemia in the setting of months of poor PO intake; also concerning for possible adrenal crisis; cannot rule out sepsis vs cardiogenic but less likely. - Levophed titr PRN MAP > 65 - LA nml, bcx pending, cont rocephin for now but no obvious source. CT pending. UA nml. COVID unlikely but pending. No localizing symptoms. - Repeat H/H and CT CAP; does have hx of RLQ bleed following cath in 2019, hold AC until CT resulted and assure H/H stable - Kalyan/low temp/low Bs could point to adrenal issue-- Hydrocortisone 50q6 IV, check cortisol, Ct abd - Low alb mgmt as below - check TSH - HR improved and patient stable, if cont to improve can obtain echo o/p, if shock persists despite other mgmt consider echo tomorrow Hypoalbuminemia--profound with alb 1.2, suspect due to malnutrition - No symptoms of gastroenteropathy, no hx of known cirrhosis, UA neg for prot - While in shock will sched IV alb q6h - Stop fluids for now given hypoxia as I suspect she will 3rd space this regardless with this low of an albumin - Nutrition consult placed AHRF--suspect d/t third spacing d/t alb 1.2 and IVF given, lasix if needed, anticipate will improve with alb and stopping fluids - Monitor O2 needs, currently requiring 2L NC and comfortable, CXR nml and no resp symptoms, doubt covid but pending - Wean O2 as able - No cardiac symptoms Kalyan--d/t BB vs thyroid vs adrenal? - check TSH, mgmt as above, improved, hold BB Hypothermia--check TSH, steroids as above and w/u as above; resolved - Required bear hugger in ED Anemia, normocytic - Suspect nutritional, no obvious signs of blood loss based on symptoms, regardless with hx of RLQ bleed will obtain CT and repeat H/H - Check iron/folate/b12 - Monitor h/h Hypokalemia--suspect d/t poor intake, repleted - Repeat now, check mag - Monitor for refeeding syndrome Chronic: awaiting med rec, d/w nursing and will complete jennifer. hold all bp meds. specifically awaiting for rn to update on seizure med and will resume . 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 likely up from steroids and now drinking sprite. Monitor closely. - Smoker--nicotine patch - CAD with stent placement 01/2019, hx of RLQ hematoma after stent placed (ultimately discharged on DAPT same admission) SQL Protonix DNR, d/w patient at length and these are her wishes. She was oriented and alert for this conversation and RN present. HAMLET JASON DO Sep 27, 2020 22:31
[2020-09-27] MEDS ORDERED: DEXTROSE 50%-WATER SYRINGE IV PRN (23:00)
[2020-09-27] MEDS ORDERED: TYLENOL PO PRN (23:00)
[2020-09-27] MEDS: BUMINATE 25% IV SCH (23:43)
[2020-09-27] MEDS: PROTONIX IV IV SCH (23:43)
[2020-09-27] MEDS: SOLU-CORTEF IV SCH (23:43)
--- NOTE | 2020-09-27 23:50 | NUR ---
pPT OFF THE UNIT VIA W/C ACCOMPANIED BY RADIOLOGY STAFF X1
[2020-09-27 23:53] LABS: CALCIUM 7.4 mg/dL (8.4-10.5); CARBON DIOXIDE 15.8 mmol/L (20.0-32)
[2020-09-28] VITALS (90 sets, daily range): BP systolic 97–182; BP diastolic 35–103
--- NOTE | 2020-09-28 00:20 | NUR ---
PT RETURNED FROM RADIOLOGY VIA W/C NO S/S OF DISTRESS OBSERVED
[2020-09-28] MEDS: KEPPRA PO SCH ×3 (00:27→21:22)
--- NOTE | 2020-09-28 01:25 | DIREP ---
PROCEDURE:CT CHEST ABDOMEN PELVIS W/CONTRAST COMPARISON:[facility], CT, CT ABD/PELVIS W/ CONTRAST, 06/17/2020, 11:08 AM. INDICATIONS:hypotension, shock, hypoxia TECHNIQUE:Axial images were obtained from the floor of the pelvis to the apices of the lungs following the intravenous administration contrast. Sagittal and coronal reformatted images were also obtained. Biphasic examination was obtained through the abdomen. FINDINGS: LUNGS:Foci of increased interstitial markings right lower lobe posterior laterally most likely representing scarring series 10, image 42. No nodules or consolidation. MEDIASTINUM:Normal. CARDIAC:Normal. PLEURA/CHEST WALL:Normal. LIVER/BILIARY:Previous cholecystectomy. PANCREAS:Small cyst cysts along the anterior aspect of the body and tail which were present on previous study. Largest cyst measures 2.2 cm diameter series 8, image 21 SPLEEN:Normal. KIDNEYS:Normal. ADRENALS:Normal. AORTA/VASCULAR:Normal. RETROPERITONEUM:Extensive arterial calcifications. Moderate plaque in the infrarenal abdominal aorta. BOWEL/MESENTERY:Diverticulosis in the sigmoid colon. No evidence of diverticulitis. ABDOMINAL WALL:Normal. PELVIC NODES:Normal. PELVIC ORGANS:Previous hysterectomy. Small to moderate amount of free fluid in the cul de sac. Howe catheter in the bladder. BONES:Normal. CONCLUSION: 1. Small to moderate amount of free fluid in the cul de sac of undetermined etiology. 2. Pancreatic pseudocysts. 3. Diverticulosis. 4. Previous hysterectomy and cholecystectomy. 5. Atherosclerosis. 6. Probable scarring in the right lower lobe. Dictated by: Patrick Pratt M.D. on 09/28/2020 at 01:13 AM
[2020-09-28] MEDS: SOLU-CORTEF IV SCH ×3 (05:24→18:00)
[2020-09-28] MEDS: BUMINATE 25% IV SCH ×3 (05:24→18:00)
--- NOTE | 2020-09-28 05:50 | NUR ---
REPORT URINE OUTPUT TO DR JASON, RECEIVED NEW ORDER. LASIX 40MG IV X1
[2020-09-28] MEDS ORDERED: LASIX IV STA (05:52)
[2020-09-28] MEDS ORDERED: LASIX ONE (05:53)
[2020-09-28 06:12] LABS: BASOPHIL % 0.1 % (0.0-0.2); LYMPHOCYTES # 1.24 10^3/uL1 (1.0-4.8); LYMPHOCYTES % 11.8 % (24.0-44.0); MEAN CORP HGB 31.5 pg (26-34); MONOCYTES # 0.6 10^3/uL (0.3-0.8); MONOCYTES % 5.9 % (5.0-12.0); NEUTROPHIL # 8.6 10^3/uL (1.8-7.7); NEUTROPHILS % 81.5 % (41.0-85.0); PLATELET COUNT 222 10^3/uL (150-400); RED CELL DISTRIBUTION WIDTH 12.8 % (11.5-14.5)
[2020-09-28 07:14] LABS: CALCIUM 8.1 mg/dL (8.4-10.5)
[2020-09-28] MEDS: HUMALOG SQ SCH ×3 (08:00→18:00)
[2020-09-28] MEDS: PROTONIX IV IV SCH (09:00)
[2020-09-28] MEDS: LOVENOX SQ SCH (09:00)
[2020-09-28] MEDS: NICOTINE 14MG PATCH TD SCH (09:00)
[2020-09-28] MEDS: ROCEPHIN 1,000 MG in NS 100ML 100 ML IV SCH (10:00)
[2020-09-28] MEDS ORDERED: NS 100ML 100 ML IV ONE (10:14)
[2020-09-28] MEDS ORDERED: ROCEPHIN ONE (10:14)
[2020-09-28] MEDS ORDERED: NS 500ML 500 ML IV ONE (11:30)
[2020-09-28] MEDS ORDERED: WATER 20 ML ONE ×2 (12:33→17:51)
[2020-09-28] MEDS ORDERED: MAGNESIUM SULFATE 50 ML IV ONE ×2 (13:00→15:35)
[2020-09-28] MEDS: BUSPAR PO SCH (21:21)
--- NOTE | 2020-09-28 22:50 | PRM.PN ---
Progress Note Subjective Date: Sep 28, 2020 Time: 14:50 Physician Notes: Titrating off levo, still feels tired but overall feels better. No fever. No SOB. No Abd pain. No chest pain. Objective Review IO, Exams,& Results Problems Acute/Active Problems: (1) Hypoglycemia (2) Hypothermia (3) Hypovolemic shock (4) Protein-energy malnutrition Resolved Problems: (1) Hypokalemia Vital Signs Date Time Temp Pulse Resp B/P (MAP) Pulse Ox O2 Delivery O2 Flow Rate FiO2 09/28/20 22:30 Nasal Cannula 2.00 09/28/20 19:45 69 15 103/51 (68) 09/28/20 19:30 97.9 09/28/20 18:30 96 09/27/20 21:03 28 Intake and Output 09/28/20 06:59 Intake Total 3112 ml Output Total 235 ml Balance 2877 ml Intake Oral 222 ml Electrolyte Solution 1500 ml IV Total 1390 ml Output Urine Total 235 ml Laboratory Tests Test 09/27/20 05:35 09/27/20 05:49 09/27/20 06:00 09/27/20 06:05 Prothrombin Time 13.3 SEC Prothrombin Time INR (Non-Therap) 1.3 Activated Partial Thromboplast Time 26.7 SEC Blood Gas Sample Site LB Blood Gas pH 7.337 Blood Gas PCO2 35.2 mmHg Blood Gas PO2 58.3 mmHg Blood Gas HCO3 18.4 mmol/L Blood Gas Base Excess -6.6 mmol/L Jose Test N/A Arterial Blood Oxygen Saturation 89.9 % Deoxyhemoglobin 9.7 % Carboxyhemoglobin 4.0 % Methemoglobin 0.4 % Total Hemoglobin 10.9 % Total Oxygen Concentration 13.2 % Blood Gas Temperature 35 Oxygen Delivery Method (LAB) ROOM AIR FiO2 21 % Total Carbon Dioxide 19.5 mmol/L Cortisol AM Sample 33.4 ug/dL White Blood Count 6.3 10^3/uL Red Blood Count 3.29 10^6/uL Hemoglobin 10.5 g/dL Hematocrit 31.6 % Mean Corpuscular Volume 96.0 fL Mean Corpuscular Hemoglobin 31.9 pg Mean Corpuscular Hemoglobin Concent 33.2 g/dL Red Cell Distribution Width 12.7 % Platelet Count 200 10^3/uL Mean Platelet Volume 12.0 fL Neutrophils (%) (Auto) 46.7 % Lymphocytes (%) (Auto) 38.8 % Monocytes (%) (Auto) 9.7 % Neutrophils # (Auto) 2.9 10^3/uL Lymphocytes # (Auto) 2.43 10^3/uL1 Monocytes # (Auto) 0.6 10^3/uL Absolute Immature Granulocyte (auto 0.04 10^3 u/L Absolute Eosinophils (auto) 0.2 10^3/uL Immature Granulocytes % 0.60 % Eosinophils % 3.4 % Basophils % 0.8 % Basophils # 0.1 10^3/uL Sodium Level 140 mmol/L Potassium Level 2.9 mmol/L Chloride Level 114.0 mmol/L Carbon Dioxide Level 21.0 mmol/L Anion Gap 7.9 Blood Urea Nitrogen 25 mg/dL Creatinine 1.34 mg/dL Estimated GFR () 47.5 Est GFR (CKD-EPI)(Non-Afr German) 39.2 BUN/Creatinine Ratio 18.0 Glucose Level 174 mg/dL Lactic Acid Level 1.0 mmol/L Calcium Level 8.0 mg/dL Ferritin 434 ng/mL Total Bilirubin 0.2 mg/dL Aspartate Amino Transf (AST/SGOT) 29 U/L Alanine Aminotransferase (ALT/SGPT) 16 U/L Alkaline Phosphatase 80 U/L Lactate Dehydrogenase 139 U/L Total Creatine Kinase 44 U/L Creatine Kinase MB < 0.5 ng/mL Troponin I 0.03 ng/mL C-Reactive Protein 0.14 mg/dL Pro-B-Type Natriuretic Peptide 926 pg/mL Total Protein 3.2 g/dL Albumin 1.2 g/dL Globulin 2.0 Albumin/Globulin Ratio 0.600 Procalcitonin < 0.05 ng/mL SARS-CoV-2 Antigen (Rapid) NEGATIVE Urine Collection Type CCMS Urine Color YELLOW Urine Appearance CLEAR Urine Bilirubin SMALL MG/DL Urine Ketones TRACE Urine Specific [place] 1.020 Urine pH 6.0 Urine Protein NEGATIVE Urine Urobilinogen 0.2 Urine Nitrate NEGATIVE Urine Leukocyte Esterase NEGATIVE Urine Blood NEGATIVE Urine Glucose NEGATIVE Test 09/27/20 06:42 09/27/20 10:03 09/27/20 12:01 09/27/20 17:44 Bedside Glucose 178 253 279 314 Test 09/27/20 21:31 09/27/20 23:01 09/27/20 23:07 09/27/20 23:10 Bedside Glucose 345 360 Hemoglobin 12.0 g/dL Hematocrit 36.9 % Sodium Level 137 mmol/L Potassium Level 5.2 mmol/L Chloride Level 112.0 mmol/L Carbon Dioxide Level 15.8 mmol/L Glucose Level 394 mg/dL Blood Urea Nitrogen 23 mg/dL Creatinine 1.50 mg/dL Calcium Level 7.4 mg/dL Anion Gap 14.4 Estimated GFR () 41.7 Est GFR (CKD-EPI)(Non-Afr German) 34.4 BUN/Creatinine Ratio 15.0 Magnesium Level 1.4 mg/dL 1.4 mg/dL Thyroid Stimulating Hormone (TSH) 0.564 mIU/mL Free Thyroxine 0.85 ng/dL Thyroxine (T4) 1.4 ug/dL Free Triiodothyronine (T3) Index 0.57 pg/mL Phosphorus Level 2.5 mg/dL Test 09/28/20 05:08 09/28/20 06:53 09/28/20 11:30 09/28/20 16:51 White Blood Count 10.5 10^3/uL Red Blood Count 3.27 10^6/uL Hemoglobin 10.3 g/dL Hematocrit 32.8 % Mean Corpuscular Volume 100.3 fL Mean Corpuscular Hemoglobin 31.5 pg Mean Corpuscular Hemoglobin Concent 31.4 g/dL Red Cell Distribution Width 12.8 % Platelet Count 222 10^3/uL Mean Platelet Volume 12.6 fL Neutrophils (%) (Auto) 81.5 % Lymphocytes (%) (Auto) 11.8 % Monocytes (%) (Auto) 5.9 % Neutrophils # (Auto) 8.6 10^3/uL Lymphocytes # (Auto) 1.24 10^3/uL1 Monocytes # (Auto) 0.6 10^3/uL Absolute Immature Granulocyte (auto 0.07 10^3 u/L Absolute Eosinophils (auto) 0.0 10^3/uL Immature Granulocytes % 0.70 % Eosinophils % 0.0 % Basophils % 0.1 % Basophils # 0.0 10^3/uL Sodium Level 138 mmol/L Potassium Level 4.9 mmol/L Chloride Level 111.0 mmol/L Carbon Dioxide Level 16.0 mmol/L Anion Gap 15.9 Blood Urea Nitrogen 21 mg/dL Creatinine 1.42 mg/dL Estimated GFR () 44.4 Est GFR (CKD-EPI)(Non-Afr German) 36.7 BUN/Creatinine Ratio 14.0 Glucose Level 317 mg/dL Calcium Level 8.1 mg/dL Phosphorus Level 2.2 mg/dL Iron Level 30 ug/dL Total Bilirubin 0.2 mg/dL Aspartate Amino Transf (AST/SGOT) 23 U/L Alanine Aminotransferase (ALT/SGPT) 23 U/L Alkaline Phosphatase 80 U/L Total Protein 4.4 g/dL Albumin 2.5 g/dL Globulin 1.9 Albumin/Globulin Ratio 1.315 Vitamin B12 Level 982 pg/mL Folate 1.9 ng/mL Procalcitonin < 0.05 ng/mL Bedside Glucose 263 190 92 Test 09/28/20 21:35 Bedside Glucose 74 Current Medications Medications (Trade) Dose Ordered Sig/Jacques PRN Reason Start Time Stop Time Status Last Admin Acetaminophen (Tylenol) 500 mg Q6H PRN PAIN 1 - 3 09/27/20 23:00 10/27/20 22:59 Albumin Human (Buminate 25%) 100 ml Q6HR 09/28/20 00:00 10/28/20 00:00 09/28/20 13:30 Buspirone HCl (Buspar) 15 mg BID 09/28/20 21:00 10/28/20 20:59 09/28/20 21:21 Ceftriaxone Sodium 1000 mg/ Sodium Chloride 100 ml @ 100 mls/hr Q24HRS 09/28/20 09:00 10/28/20 08:59 09/28/20 10:00 Dextrose (Dextrose 50%-Water Syringe) 25 ml STAT PRN HYPOGLYCEMIA 09/27/20 23:00 10/27/20 22:59 Enoxaparin Sodium (Lovenox) 40 mg Q24HRS 09/28/20 09:00 10/28/20 08:59 09/28/20 09:00 Hydrocortisone Sodium Succinate (Solu-Cortef) 50 mg Q6HR 09/28/20 00:00 10/28/20 00:00 09/28/20 13:30 Insulin Human Lispro (Humalog) Humalog. Give when food is... TIDM 09/28/20 08:00 10/28/20 07:59 09/28/20 13:30 Levetiracetam (Keppra) 500 mg BID 09/28/20 00:00 10/28/20 00:00 11/4/20 21:22 Nicotine (Nicotine 14mg Patch) 1 each DAILY 09/28/20 09:00 10/28/20 08:59 Norepinephrine Bitartrate 8 mg/ Sodium Chloride 258 ml @ 0 mls/hr IV 09/27/20 22:00 10/27/20 21:59 09/27/20 22:01 Ondansetron HCl (Zofran) 4 mg Q4H PRN NAUSEA / VOMITING 09/28/20 20:30 10/28/20 20:29 Pantoprazole Sodium (Protonix Iv) 40 mg DAILY 09/27/20 23:00 10/27/20 22:59 09/28/20 09:00 Paroxetine HCl (Paxil) 20 mg DAILY 09/29/20 09:00 10/29/20 08:59 Andrew - HAMLET JASON E DO Social Service Consult (09/27/20 19:34) Albumin Human (Buminate 25%) (09/28/20 00:00) Ct Chest W Iv Contrast (09/27/20 22:31) Speech Eval And Treat (09/27/20 22:31) Prealbumin (Lci) (09/28/20 07:00) Req Nutritional Conslt By (09/27/20 22:31) Pt Eval And Treat Mobility (09/27/20 22:31) Ot Eval And Treat (09/27/20 22:31) Full Liquid Diet (09/28/20 Breakfast) Resuscitation Status (09/27/20 22:31) Hydrocortisone Sod Succinate (Solu-Cande (09/28/20 00:00) Pantoprazole Sodium (Protonix Iv) (09/27/20 23:00) Enoxaparin Sodium (Lovenox) (09/28/20 09:00) Ceftriaxone Sodium (Rocephin) (09/28/20 09:00) Nicotine (Nicotine 14mg Patch) (09/28/20 09:00) Acetaminophen (Tylenol) (09/27/20 23:00) Insulin Lispro (Humalog) (09/28/20 08:00) Accucheck (09/28/20 07:30) Accucheck (09/28/20 11:30) Accucheck (09/28/20 17:30) Accucheck (09/28/20 21:00) Accucheck (09/29/20 07:30) Accucheck (09/29/20 11:30) Accucheck (09/29/20 17:30) Accucheck (09/29/20 21:00) Accucheck (09/30/20 07:30) Accucheck (09/30/20 11:30) Accucheck (09/30/20 17:30) Accucheck (09/30/20 21:00) Accucheck (10/01/20 07:30) Accucheck (10/01/20 11:30) Accucheck (10/01/20 17:30) Accucheck (10/01/20 21:00) Accucheck (10/02/20 07:30) Accucheck (10/02/20 11:30) Accucheck (10/02/20 17:30) Accucheck (10/02/20 21:00) Accucheck (10/03/20 07:30) Accucheck (10/03/20 11:30) Accucheck (10/03/20 17:30) Accucheck (10/03/20 21:00) Accucheck (10/04/20 07:30) Accucheck (10/04/20 11:30) Accucheck (10/04/20 17:30) Accucheck (10/04/20 21:00) Accucheck (10/05/20 07:30) Accucheck (10/05/20 11:30) Accucheck (10/05/20 17:30) Accucheck (10/05/20 21:00) Accucheck (10/06/20 07:30) Accucheck (10/06/20 11:30) Accucheck (10/06/20 17:30) Accucheck (10/06/20 21:00) Accucheck (10/07/20 07:30) Accucheck (10/07/20 11:30) Accucheck (10/07/20 17:30) Accucheck (10/07/20 21:00) Accucheck (10/08/20 07:30) Accucheck (10/08/20 11:30) Accucheck (10/08/20 17:30) Accucheck (10/08/20 21:00) Accucheck (10/09/20 07:30) Accucheck (10/09/20 11:30) Accucheck (10/09/20 17:30) Accucheck (10/09/20 21:00) Accucheck (10/10/20 07:30) Accucheck (10/10/20 11:30) Accucheck (10/10/20 17:30) Accucheck (10/10/20 21:00) Accucheck (10/11/20 07:30) Accucheck (10/11/20 11:30) Accucheck (10/11/20 17:30) Accucheck (10/11/20 21:00) Accucheck (10/12/20 07:30) Accucheck (10/12/20 11:30) Accucheck (10/12/20 17:30) Accucheck (10/12/20 21:00) Accucheck (10/13/20 07:30) Accucheck (10/13/20 11:30) Accucheck (10/13/20 17:30) Accucheck (10/13/20 21:00) Accucheck (10/14/20 07:30) Accucheck (10/14/20 11:30) Accucheck (10/14/20 17:30) Accucheck (10/14/20 21:00) Accucheck (10/15/20 07:30) Accucheck (10/15/20 11:30) Accucheck (10/15/20 17:30) Accucheck (10/15/20 21:00) Accucheck (10/16/20 07:30) Accucheck (10/16/20 11:30) Accucheck (10/16/20 17:30) Accucheck (10/16/20 21:00) Accucheck (10/17/20 07:30) Accucheck (10/17/20 11:30) Accucheck (10/17/20 17:30) Accucheck (10/17/20 21:00) Accucheck (10/18/20 07:30) Accucheck (10/18/20 11:30) Accucheck (10/18/20 17:30) Accucheck (10/18/20 21:00) Accucheck (10/19/20 07:30) Accucheck (10/19/20 11:30) Accucheck (10/19/20 17:30) Accucheck (10/19/20 21:00) Accucheck (10/20/20 07:30) Accucheck (10/20/20 11:30) Accucheck (10/20/20 17:30) Accucheck (10/20/20 21:00) Accucheck (10/21/20 07:30) Accucheck (10/21/20 11:30) Accucheck (10/21/20 17:30) Accucheck (10/21/20 21:00) Accucheck (10/22/20 07:30) Accucheck (10/22/20 11:30) Accucheck (10/22/20 17:30) Dextrose 50 % In Water (Dextrose 50%-Michaela (09/27/20 23:00) Levetiracetam (Keppra) (09/28/20 00:00) Request For Echo (09/29/20 ) Heart: Regular rate, Normal S1, Normal S2 Abdomen: Normal bowel sounds, Soft, No tenderness Lungs: Clear to auscultation, Normal air movement Changes in Treatment Cachectic, chronically ill appearing NAD Assessment & Plan: Problems/Diagnosis: (1) Hypothermia ICD Code: T68.XXXA - Hypothermia, initial encounter SNOMED: 590180298 Status: Acute (2) Hypoglycemia ICD Code: E16.2 - Hypoglycemia, unspecified SNOMED: 085422645 Status: Acute (3) Hypokalemia ICD Code: E87.6 - Hypokalemia SNOMED: 18728708 Status: Resolved (4) Protein-energy malnutrition ICD Code: E46 - Unspecified protein-calorie malnutrition SNOMED: 709306971 Status: Acute (5) Hypovolemic shock ICD Code: R57.1 - Hypovolemic shock SNOMED: 00666652 Status: Acute Assessment Shock, undifferentiated as of yet--suspect this is primarily driven by hypovolemia and hypoalbuminemia in the setting of months of poor PO intake; also concerning for possible adrenal crisis; cannot rule out sepsis vs cardiogenic but less likely. - Levophed titr PRN MAP > 65, hopeful to stop today and if remains off with MAP > 65 for a few hours can txf to floor - LA nml, bcx pending, cont rocephin for now but no obvious source. CT CAP no source. UA nml. COVID unlikely but pending. No localizing symptoms. If shock improving tomorrow stop abx. - H/H stable, no e/o bleed on CT - Kalyan/low temp/low Bs could point to adrenal issue-- Hydrocortisone 50q6 IV, check cortisol, no e/o adrenal mass - Low alb mgmt as below - Subclinical hypothyroid doubt contributing significantly - Obtain echo, d/w Kamnani Hypoalbuminemia--profound with alb 1.2, suspect due to malnutrition - No symptoms of gastroenteropathy, no hx of known cirrhosis, UA neg for prot - While in shock will sched IV alb q6h - Stop fluids for now given hypoxia as I suspect she will 3rd space this regardless with this low of an albumin - Nutrition consult placed, appreciate recommendations AHRF--suspect d/t third spacing d/t alb 1.2 and IVF given, lasix given this am x 1 - Monitor O2 needs, currently requiring 2L NC and comfortable, CXR nml and no resp symptoms, doubt covid but pending - Wean O2 as able - No cardiac symptoms - Improving Kalyan--d/t BB vs thyroid vs adrenal? 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 - Smoker--nicotine patch - CAD with stent placement 01/2019, hx of RLQ hematoma after stent placed (ultimately discharged on DAPT same admission) SQL Protonix DNR, d/w patient at length and these are her wishes. She was oriented and alert for this conversation and RN present. Plan as above Problem Qualifiers (1) Hypothermia: Encounter type: initial encounter Qualified Codes: T68.XXXA - Hypothermia, initial encounter (2) Protein-energy malnutrition: Protein-calorie malnutrition severity: severe Qualified Codes: E43 - Unspecified severe protein-calorie malnutrition HAMLET JASON DO Sep 28, 2020 22:50
--- NOTE | 2020-09-28 23:06 | NUR ---
Called Dr Beard at this time for request to transfer to [place] at this time. okayed request.
[2020-09-29] VITALS: BP 120/57
--- NOTE | 2020-09-29 00:01 | NUR ---
pt arrived to room 338 via bed from [facility].
[2020-09-29 00:10] VITALS: BP 119/69
--- NOTE | 2020-09-29 01:20 | NUR ---
Received pt from [facility] from med surg onto ICU at this time. Pt started on Propofol 20mcg/kg/min. NG tube to L nare is clamped, and placement verified by auscultation. Pt is tachycardic at 115, O2 87-88%, all other VSS and WNL VENT SETTINGS Mode AC Pressure 28 RR 22 PEEP 12 Fi02 100% Inspiration time 0.8 seconds ETT 7.5, 24 at the [facility] Will continue to monitor pt Addendum: 09/29/20 at 0159 by Rosemary Ahuja RN- MS LE Note on wrong pt
[2020-09-29] MEDS: BUMINATE 25% IV SCH (01:46)
[2020-09-29] MEDS: SOLU-CORTEF IV SCH ×3 (02:07→21:00)
[2020-09-29 05:42] LABS: BASOPHIL % 0.1 % (0.0-0.2); LYMPHOCYTES # 1.09 10^3/uL1 (1.0-4.8); LYMPHOCYTES % 7.5 % (24.0-44.0); MEAN CORP HGB 31.7 pg (26-34); MONOCYTES # 0.8 10^3/uL (0.3-0.8); MONOCYTES % 5.5 % (5.0-12.0); NEUTROPHIL # 12.6 10^3/uL (1.8-7.7); NEUTROPHILS % 86.2 % (41.0-85.0); PLATELET COUNT 154 10^3/uL (150-400); RED CELL DISTRIBUTION WIDTH 12.9 % (11.5-14.5)
[2020-09-29 06:12] LABS: CALCIUM 9.3 mg/dL (8.4-10.5); CARBON DIOXIDE 22.6 mmol/L (20.0-32)
--- NOTE | 2020-09-29 06:32 | DIREP ---
PROCEDURE:CHEST 1 VIEW COMPARISON:[facility], CR, XRAY CHEST SINGLE VW, 09/27/2020, 09:24 AM. INDICATIONS:sob FINDINGS: LUNGS/PLEURA:Ground-glass opacity left mid lung laterally. Blunt left costophrenic sinus. Hyperaeration consistent with COPD. VASCULATURE:Normal. Unremarkable pulmonary vasculature. CARDIAC:Normal. No cardiac silhouette abnormality or cardiomegaly. MEDIASTINUM:Right central line in place with tip in the superior vena cava. BONES:Normal. No fracture or visible bony lesion. OTHER:Negative. CONCLUSION: 1. COPD 2. Ground-glass opacity left mid lung laterally unchanged. 3. Blunt left costophrenic sinus. Dictated by: Patrick Pratt M.D. on 09/29/2020 at 06:29 AM
[2020-09-29] MEDS: HUMALOG SQ SCH ×3 (08:00→18:00)
[2020-09-29] MEDS ORDERED: KLOR-CON 10 PO SCH (08:00)
[2020-09-29] MEDS ORDERED: BUMINATE 25% IV SCH (09:00)
[2020-09-29] MEDS: NICOTINE 14MG PATCH TD SCH (09:00)
[2020-09-29 09:07] VITALS: BP 125/59
[2020-09-29] MEDS: KEPPRA PO SCH ×2 (09:43→21:00)
[2020-09-29] MEDS: FERROUS SULFATE PO SCH (09:43)
[2020-09-29] MEDS: BUSPAR PO SCH ×2 (09:43→21:00)
[2020-09-29] MEDS: PROTONIX IV IV SCH (09:44)
[2020-09-29] MEDS: PAXIL PO SCH (09:45)
[2020-09-29] MEDS: LOVENOX SQ SCH (09:45)
[2020-09-29] MEDS: FOLIC ACID PO SCH (09:45)
[2020-09-29] MEDS: ROCEPHIN 1,000 MG in NS 100ML 100 ML IV SCH (11:00)
[2020-09-29] MEDS ORDERED: ROCEPHIN ONE (11:17)
[2020-09-29] MEDS ORDERED: NS 100ML 100 ML IV ONE (11:17)
--- NOTE | 2020-09-29 13:29 | DIET.OP ---
Nutrition Asmt/Malnutrit 2-17 Actual Date of Review: Sep 29, 2020 Nutritional Screening: Malnutr/Diet Consult Diagnosis: hypovolemia shock, hypoglycemia Pertinent Medical Hx/Surgical: HTN, hyperlipidemia, COPD, peripheral vascular disease, GERD, CVA with residual speech difficulty, CHF, CAD Subjective Information: PT presented to ED with BG of 44 mg/dl. She reports months of lethargy and poor po intake at home while still taking her insulin. She has a long hx of poor appetite and wt loss reporting in January 2019 an 85# wt loss and poor appetite for the previous year. Pt immediately vomited post swallow study and stated "this happens every time I eat or drink'. 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 Attempted to contact nurse x 3 today for further details with no luck. PO intake not charted for the day. Wt Hx: Jun 2018: 154# January 2019: 151# Current: 110# Current Diet Order/Nutrition S: NPO Patient /S.O: Not Indicated Pertinent Meds Current Medications Medications (Trade) Dose Ordered Sig/Jacques PRN Reason Start Time Stop Time Status Last Admin Acetaminophen (Tylenol) 500 mg Q6H PRN PAIN 1 - 3 09/27/20 23:00 10/27/20 22:59 09/29/20 09:44 Albumin Human (Buminate 25%) 100 ml BID 09/29/20 09:00 10/28/20 00:00 09/29/20 09:44 Buspirone HCl (Buspar) 15 mg BID 09/28/20 21:00 10/28/20 20:59 09/29/20 09:43 Ceftriaxone Sodium 1000 mg/ Sodium Chloride 100 ml @ 100 mls/hr Q24HRS 09/28/20 09:00 10/28/20 08:59 09/29/20 11:00 Dextrose (Dextrose 50%-Water Syringe) 25 ml STAT PRN HYPOGLYCEMIA 09/27/20 23:00 10/27/20 22:59 Enoxaparin Sodium (Lovenox) 40 mg Q24HRS 09/28/20 09:00 10/28/20 08:59 09/29/20 09:45 Ferrous Sulfate (Ferrous Sulfate) 325 mg DAILY 09/29/20 09:00 10/29/20 08:59 09/29/20 09:43 Folic Acid (Folic Acid) 1 mg DAILY 09/29/20 09:00 10/29/20 08:59 09/29/20 09:45 Hydrocortisone Sodium Succinate (Solu-Cortef) 50 mg BID 09/29/20 09:00 10/28/20 00:00 09/29/20 09:43 Insulin Human Lispro (Humalog) Humalog. Give when food is... TIDM 09/28/20 08:00 10/28/20 07:59 09/28/20 13:30 Levetiracetam (Keppra) 500 mg BID 09/28/20 00:00 10/28/20 00:00 09/29/20 09:43 Nicotine (Nicotine 14mg Patch) 1 each DAILY 09/28/20 09:00 10/28/20 08:59 Norepinephrine Bitartrate 8 mg/ Sodium Chloride 258 ml @ 0 mls/hr IV 09/27/20 22:00 10/27/20 21:59 09/27/20 22:01 Ondansetron HCl (Zofran) 4 mg Q4H PRN NAUSEA / VOMITING 09/28/20 20:30 10/28/20 20:29 Pantoprazole Sodium (Protonix Iv) 40 mg DAILY 09/27/20 23:00 10/27/20 22:59 09/29/20 09:44 Paroxetine HCl (Paxil) 20 mg DAILY 09/29/20 09:00 10/29/20 08:59 09/29/20 09:45 Potassium Chloride (Klor-Con 10) 20 meq STAT 09/29/20 08:00 10/29/20 07:59 Height (Feet): 5 Height (Inches): 6 Current Weight: 110 Usual Weight: 154 %IBW: 82 Recent Weight Change: Yes (41# over last 20 months) Weight Status: Underweight Food Allergies: No Cultural/Ethnic/Episcopal Yadira: none BEE in Kcals: Use Current Weight Calories/Kcals/K-35 kcal/kg Kcals Calculated: 0344-7655 Protein: Use Current Weight Protein g/k-1.2 Protein Calculated: 50-60 Fluid: ml: 1 ml/kcal Nutritional Problem: Nutr. Problems Present Problems: Inadequate oral intake Etiology: Low appetite - vomiting with po intake Signs/Symptoms: patients report of months of poor po intake, currently NPO Protein-Calorie Malnutrition: Non-Severe Is there a minimum of two crit: Yes Malnutrtion/Nutrition Risk Edu: No Samantha Pisano Sep 29, 2020 13:29
[2020-09-29] MEDS ORDERED: VENTOLIN IH PRN (13:30)
--- NOTE | 2020-09-29 14:35 | NUR ---
DISCHARGE PLAN PATRIC VISITED WITH KAYLEE WHO WAS LISTED EMERGENCY CONTACT. PER KAYLEE PATIENT LIVES AT HOME IN A APARTMENT. SHE HAS A HOSPITAL BED, WALKER AND W/C. SHE HAS ONLY BEEN HOME FOR 2 MONTHS AND WAS DISCHARGED FROM THE MEDICAL [facility] 08/01/20, SHE ENTERED THE FACILITY ON 10/30/19. SHE RECEIVED THERAPY THERE FOR 6 MONTHS BEFORE SHE WAS D/C. KAYLEE STATES THAT PRIOR TO HER EVER BEING ADMITTED TO SNF SHE WAS ABLE TO PERFORM ALL OF HER ADLS INDEPENDENTLY. KAYLEE SAID THAT THE PATIENT HAS DECLINED IN OVERALL HEALTH OVER THE PAST YEAR. PATIENT ALSO HAS [facility] AND CAREGIVERS IN PLACE. KAYLEE HER CAREGIVER SEES HER 6DAYS A WEEK FOR A TOTAL OF 18HRS WEEKLY. PER KAYLEE SHE HAS A DAUGHTER THAT LIVES IN THE [place] BUT SHE DOES NOT KNOW HER CONTACT INFORMATION. PATRIC WILL CONTINUE TO MONITOR NEEDS OF PT. PATRIC REPORTED ALL FINDINGS TO LOIS LUJAN.
--- NOTE | 2020-09-29 16:34 | DIREP ---
PROCEDURE:XRAY UGI TRACT W/O KUB COMPARISON:None. INDICATIONS:vomiting, dypshagia TECHNIQUE:The patient swallowed thin barium and effervescent material under fluoroscopic observation of the esophagus, stomach, and proximal small bowel. Multiple spot images were obtained with the patient in supine and right lateral oblique position. The patient is unable to stand so the examination was modified FINDINGS: ESOPHAGUS:No stricture. Normal GE junction. There was a relatively weak secondary wave so esophageal stripping did not completely clear the esophagus during the swallowing attempts.. STOMACH:The stomach was distended with gas and the posterior wall and antrum were demonstrated in double contrast technique, no abnormalities. There is no gastric outlet obstruction DUODENUM:1st and 2nd portions of the duodenum are unremarkable. FLUORO TIME: 3.3 minutes NUMBER OF IMAGES: Twenty-five fluoroscopic spot images CONCLUSION:Physician performed modified upper GI exam using thin barium shows a normal initial swallowing action, relatively weak stripping wave 4 incomplete esophageal clearance but normal GE junction with no hiatal hernia. Gastric contours, antrum, and proximal duodenum are unremarkable. No gastric outlet obstruction. Dictated by: Mady Matthews MD on 09/29/2020 at 04:31 PM
[2020-09-29 16:45] VITALS: BP 117/75
[2020-09-29] MEDS ORDERED: NORCO 5MG PO ONE (17:06)
[2020-09-29] MEDS ORDERED: NORCO 5MG PO PRN (17:30)
--- NOTE | 2020-09-29 19:29 | PRM.PN ---
Progress Note Subjective Date: Sep 29, 2020 Time: 14:05 Physician Notes: Patient feeling much better but still very weak. PT eval'd today, rec'd SNF. No fever. On 2L and breathing comfortably. BP stable off pressors > 24h. Objective Review IO, Exams,& Results Problems Acute/Active Problems: (1) Hypoglycemia (2) Hypothermia (3) Hypovolemic shock (4) Protein-energy malnutrition Resolved Problems: (1) Hypokalemia Vital Signs Date Time Temp Pulse Resp B/P (MAP) Pulse Ox O2 Delivery O2 Flow Rate FiO2 09/29/20 18:25 78 16 99 Nasal Cannula 2.00 09/29/20 16:45 98.1 117/75 (89) 09/29/20 09:58 28 Intake and Output 09/29/20 07:00 Output Total 3400 ml Balance -3400 ml Output Urine Total 3400 ml Laboratory Tests Test 09/27/20 21:31 09/27/20 23:01 09/27/20 23:07 09/27/20 23:10 Bedside Glucose 345 360 Hemoglobin 12.0 g/dL Hematocrit 36.9 % Sodium Level 137 mmol/L Potassium Level 5.2 mmol/L Chloride Level 112.0 mmol/L Carbon Dioxide Level 15.8 mmol/L Glucose Level 394 mg/dL Blood Urea Nitrogen 23 mg/dL Creatinine 1.50 mg/dL Calcium Level 7.4 mg/dL Anion Gap 14.4 Estimated GFR () 41.7 Est GFR (CKD-EPI)(Non-Afr New Zealander) 34.4 BUN/Creatinine Ratio 15.0 Magnesium Level 1.4 mg/dL 1.4 mg/dL Thyroid Stimulating Hormone (TSH) 0.564 mIU/mL Free Thyroxine 0.85 ng/dL Thyroxine (T4) 1.4 ug/dL Free Triiodothyronine (T3) Index 0.57 pg/mL Phosphorus Level 2.5 mg/dL Test 09/28/20 05:08 09/28/20 06:53 09/28/20 11:30 09/28/20 16:51 White Blood Count 10.5 10^3/uL Red Blood Count 3.27 10^6/uL Hemoglobin 10.3 g/dL Hematocrit 32.8 % Mean Corpuscular Volume 100.3 fL Mean Corpuscular Hemoglobin 31.5 pg Mean Corpuscular Hemoglobin Concent 31.4 g/dL Red Cell Distribution Width 12.8 % Platelet Count 222 10^3/uL Mean Platelet Volume 12.6 fL Neutrophils (%) (Auto) 81.5 % Lymphocytes (%) (Auto) 11.8 % Monocytes (%) (Auto) 5.9 % Neutrophils # (Auto) 8.6 10^3/uL Lymphocytes # (Auto) 1.24 10^3/uL1 Monocytes # (Auto) 0.6 10^3/uL Absolute Immature Granulocyte (auto 0.07 10^3 u/L Absolute Eosinophils (auto) 0.0 10^3/uL Immature Granulocytes % 0.70 % Eosinophils % 0.0 % Basophils % 0.1 % Basophils # 0.0 10^3/uL Sodium Level 138 mmol/L Potassium Level 4.9 mmol/L Chloride Level 111.0 mmol/L Carbon Dioxide Level 16.0 mmol/L Anion Gap 15.9 Blood Urea Nitrogen 21 mg/dL Creatinine 1.42 mg/dL Estimated GFR () 44.4 Est GFR (CKD-EPI)(Non-Afr [place] Zealander) 36.7 BUN/Creatinine Ratio 14.0 Glucose Level 317 mg/dL Calcium Level 8.1 mg/dL Phosphorus Level 2.2 mg/dL Iron Level 30 ug/dL Total Bilirubin 0.2 mg/dL Aspartate Amino Transf (AST/SGOT) 23 U/L Alanine Aminotransferase (ALT/SGPT) 23 U/L Alkaline Phosphatase 80 U/L Total Protein 4.4 g/dL Albumin 2.5 g/dL Globulin 1.9 Albumin/Globulin Ratio 1.315 Prealbumin 12 mg/dL Vitamin B12 Level 982 pg/mL Folate 1.9 ng/mL Procalcitonin < 0.05 ng/mL Bedside Glucose 263 190 92 Test 09/28/20 21:35 09/29/20 04:44 09/29/20 07:54 09/29/20 13:09 Bedside Glucose 74 98 123 White Blood Count 14.6 10^3/uL Red Blood Count 2.52 10^6/uL Hemoglobin 8.0 g/dL Hematocrit 24.5 % Mean Corpuscular Volume 97.2 fL Mean Corpuscular Hemoglobin 31.7 pg Mean Corpuscular Hemoglobin Concent 32.7 g/dL Red Cell Distribution Width 12.9 % Platelet Count 154 10^3/uL Mean Platelet Volume 12.6 fL Neutrophils (%) (Auto) 86.2 % Lymphocytes (%) (Auto) 7.5 % Monocytes (%) (Auto) 5.5 % Neutrophils # (Auto) 12.6 10^3/uL Lymphocytes # (Auto) 1.09 10^3/uL1 Monocytes # (Auto) 0.8 10^3/uL Absolute Immature Granulocyte (auto 0.10 10^3 u/L Absolute Eosinophils (auto) 0.0 10^3/uL Immature Granulocytes % 0.70 % Eosinophils % 0.0 % Basophils % 0.1 % Basophils # 0.0 10^3/uL Sodium Level 145 mmol/L Potassium Level 3.2 mmol/L Chloride Level 113.0 mmol/L Carbon Dioxide Level 22.6 mmol/L Anion Gap 12.6 Blood Urea Nitrogen 17 mg/dL Creatinine 1.28 mg/dL Estimated GFR () 50.0 Est GFR (CKD-EPI)(Non-Afr [place] Zealander) 41.3 BUN/Creatinine Ratio 13.0 Glucose Level 88 mg/dL Calcium Level 9.3 mg/dL Phosphorus Level 2.6 mg/dL Magnesium Level 2.1 mg/dL Total Bilirubin 0.4 mg/dL Aspartate Amino Transf (AST/SGOT) 23 U/L Alanine Aminotransferase (ALT/SGPT) 16 U/L Alkaline Phosphatase 52 U/L Total Protein 5.3 g/dL Albumin 3.9 g/dL Globulin 1.4 Albumin/Globulin Ratio 2.785 Current Medications Medications (Trade) Dose Ordered Sig/Jacques PRN Reason Start Time Stop Time Status Last Admin Acetaminophen (Tylenol) 500 mg Q6H PRN PAIN 1 - 3 09/27/20 23:00 10/27/20 22:59 09/29/20 09:44 Acetaminophen/ Hydrocodone Bitart (Secaucus 5mg) 1 ea Q6HR PRN PAIN 4 - 6 09/29/20 17:30 10/29/20 17:29 09/29/20 17:39 Albumin Human (Buminate 25%) 100 ml BID 09/29/20 09:00 10/28/20 00:00 09/29/20 09:44 Albuterol Sulfate (Ventolin Hfa) 2 inh PRN PRN WHEEZING 09/29/20 17:30 10/29/20 17:29 Buspirone HCl (Buspar) 15 mg BID 09/28/20 21:00 10/28/20 20:59 09/29/20 09:43 Ceftriaxone Sodium 1000 mg/ Sodium Chloride 100 ml @ 100 mls/hr Q24HRS 09/28/20 09:00 10/28/20 08:59 09/29/20 11:00 Dextrose (Dextrose 50%-Water Syringe) 25 ml STAT PRN HYPOGLYCEMIA 09/27/20 23:00 10/27/20 22:59 Enoxaparin Sodium (Lovenox) 40 mg Q24HRS 09/28/20 09:00 10/28/20 08:59 09/29/20 09:45 Ferrous Sulfate (Ferrous Sulfate) 325 mg DAILY 09/29/20 09:00 10/29/20 08:59 09/29/20 09:43 Folic Acid (Folic Acid) 1 mg DAILY 09/29/20 09:00 10/29/20 08:59 09/29/20 09:45 Hydrocortisone Sodium Succinate (Solu-Cortef) 50 mg BID 09/29/20 09:00 10/28/20 00:00 09/29/20 09:43 Insulin Human Lispro (Humalog) Humalog. Give when food is... TIDM 09/28/20 08:00 10/28/20 07:59 09/28/20 13:30 Levetiracetam (Keppra) 500 mg BID 09/28/20 00:00 10/28/20 00:00 09/29/20 09:43 Nicotine (Nicotine 14mg Patch) 1 each DAILY 09/28/20 09:00 10/28/20 08:59 Norepinephrine Bitartrate 8 mg/ Sodium Chloride 258 ml @ 0 mls/hr IV 09/27/20 22:00 10/27/20 21:59 09/27/20 22:01 Ondansetron HCl (Zofran) 4 mg Q4H PRN NAUSEA / VOMITING 09/28/20 20:30 10/28/20 20:29 Pantoprazole Sodium (Protonix Iv) 40 mg DAILY 09/27/20 23:00 10/27/20 22:59 09/29/20 09:44 Paroxetine HCl (Paxil) 20 mg DAILY 09/29/20 09:00 10/29/20 08:59 09/29/20 09:45 Potassium Chloride (Klor-Con 10) 20 meq STAT 09/29/20 08:00 12 07:59 Orders - HAMLET JASON E DO Social Service Consult (09/27/20 19:34) Ct Chest W Iv Contrast (09/27/20 22:31) Speech Eval And Treat (09/27/20 22:31) Req Nutritional Conslt By (09/27/20 22:31) Pt Eval And Treat Mobility (09/27/20 22:31) Ot Eval And Treat (09/27/20 22:31) Full Liquid Diet (09/28/20 Breakfast) Resuscitation Status (09/27/20 22:31) Pantoprazole Sodium (Protonix Iv) (09/27/20 23:00) Enoxaparin Sodium (Lovenox) (09/28/20 09:00) Ceftriaxone Sodium (Rocephin) (09/28/20 09:00) Nicotine (Nicotine 14mg Patch) (09/28/20 09:00) Acetaminophen (Tylenol) (09/27/20 23:00) Insulin Lispro (Humalog) (09/28/20 08:00) Accucheck (09/28/20 07:30) Accucheck (09/28/20 11:30) Accucheck (09/28/20 17:30) Accucheck (09/28/20 21:00) Accucheck (09/29/20 07:30) Accucheck (09/29/20 11:30) Accucheck (09/29/20 17:30) Accucheck (09/29/20 21:00) Accucheck (09/30/20 07:30) Accucheck (09/30/20 11:30) Accucheck (09/30/20 17:30) Accucheck (09/30/20 21:00) Accucheck (10/01/20 07:30) Accucheck (10/01/20 11:30) Accucheck (10/01/20 17:30) Accucheck (10/01/20 21:00) Accucheck (10/02/20 07:30) Accucheck (10/02/20 11:30) Accucheck (10/02/20 17:30) Accucheck (10/02/20 21:00) Accucheck (10/03/20 07:30) Accucheck (10/03/20 11:30) Accucheck (10/03/20 17:30) Accucheck (10/03/20 21:00) Accucheck (10/04/20 07:30) Accucheck (10/04/20 11:30) Accucheck (10/04/20 17:30) Accucheck (10/04/20 21:00) Accucheck (10/05/20 07:30) Accucheck (10/05/20 11:30) Accucheck (10/05/20 17:30) Accucheck (10/05/20 21:00) Accucheck (10/06/20 07:30) Accucheck (10/06/20 11:30) Accucheck (10/06/20 17:30) Accucheck (10/06/20 21:00) Accucheck (10/07/20 07:30) Accucheck (10/07/20 11:30) Accucheck (10/07/20 17:30) Accucheck (10/07/20 21:00) Accucheck (10/08/20 07:30) Accucheck (10/08/20 11:30) Accucheck (10/08/20 17:30) Accucheck (10/08/20 21:00) Accucheck (10/09/20 07:30) Accucheck (10/09/20 11:30) Accucheck (10/09/20 17:30) Accucheck (10/09/20 21:00) Accucheck (10/10/20 07:30) Accucheck (10/10/20 11:30) Accucheck (10/10/20 17:30) Accucheck (10/10/20 21:00) Accucheck (10/11/20 07:30) Accucheck (10/11/20 11:30) Accucheck (10/11/20 17:30) Accucheck (10/11/20 21:00) Accucheck (10/12/20 07:30) Accucheck (10/12/20 11:30) Accucheck (10/12/20 17:30) Accucheck (10/12/20 21:00) Accucheck (10/13/20 07:30) Accucheck (10/13/20 11:30) Accucheck (10/13/20 17:30) Accucheck (10/13/20 21:00) Accucheck (10/14/20 07:30) Accucheck (10/14/20 11:30) Accucheck (10/14/20 17:30) Accucheck (10/14/20 21:00) Accucheck (10/15/20 07:30) Accucheck (10/15/20 11:30) Accucheck (10/15/20 17:30) Accucheck (10/15/20 21:00) Accucheck (10/16/20 07:30) Accucheck (10/16/20 11:30) Accucheck (10/16/20 17:30) Accucheck (10/16/20 21:00) Accucheck (10/17/20 07:30) Accucheck (10/17/20 11:30) Accucheck (10/17/20 17:30) Accucheck (10/17/20 21:00) Accucheck (10/18/20 07:30) Accucheck (10/18/20 11:30) Accucheck (10/18/20 17:30) Accucheck (10/18/20 21:00) Accucheck (10/19/20 07:30) Accucheck (10/19/20 11:30) Accucheck (10/19/20 17:30) Accucheck (10/19/20 21:00) Accucheck (10/20/20 07:30) Accucheck (10/20/20 11:30) Accucheck (10/20/20 17:30) Accucheck (10/20/20 21:00) Accucheck (10/21/20 07:30) Accucheck (10/21/20 11:30) Accucheck (10/21/20 17:30) Accucheck (10/21/20 21:00) Accucheck (10/22/20 07:30) Accucheck (10/22/20 11:30) Accucheck (10/22/20 17:30) Dextrose 50 % In Water (Dextrose 50%-Michaela (09/27/20 23:00) Levetiracetam (Keppra) (09/28/20 00:00) Request For Echo (09/29/20 ) Ferrous Sulfate (Ferrous Sulfate) (09/29/20 09:00) Folic Acid (Folic Acid) (09/29/20 09:00) Hydrocortisone Sod Succinate (Solu-Cande (09/29/20 09:00) Potassium Chloride (Klor-Con 10) (09/29/20 08:00) Xr Ugi (09/29/20 13:03) Pt Clarify Mob. Treatment (09/29/20 14:02) Dysphagia-Thin Liquids-Level 0 (09/29/20 Dinner) Dysphg-Pureed Diet(L4) (09/29/20 Dinner) Malnutrition Screening (09/29/20 Dinner) 90 Degree Positioning With Po (09/29/20 16:11) Alternate Solids/Liquids (09/29/20 16:11) Check/Clear Oral After Po (09/29/20 16:11) Slow Rate Of Intake (09/29/20 16:11) Small Bites/Sips (09/29/20 16:11) Supervision With Po (09/29/20 16:11) Upright For 30min Post Po (09/29/20 16:11) Crush Meds (09/29/20 16:11) Initiate Dysphagia Poc (Rad/St (09/29/20 16:11) Lvl Of Supervis For Mealtime (09/29/20 Dinner) Analyst Programmer Clarify Treatment (09/29/20 16:11) Hydrocodone/Acetaminophen ([place]us 5mg) (09/29/20 17:30) Albuterol Sulfate (Ventolin Hfa) (09/29/20 17:30) Cbc With Auto Diff (09/30/20 07:00) Comprehensive Metabolic Panel (09/30/20 07:00) Magnesium (09/30/20 07:00) Heart: Regular rate, Normal S1, Normal S2 Abdomen: Normal bowel sounds, Soft, No tenderness Lungs: Clear to auscultation, Normal air movement Changes in Treatment cachectic, deconditioned Assessment & Plan: Problems/Diagnosis: (1) Hypokalemia ICD Code: E87.6 - Hypokalemia SNOMED: 42726708 Status: Resolved (2) Protein-energy malnutrition ICD Code: E46 - Unspecified protein-calorie malnutrition SNOMED: 576423342 Status: Acute (3) Hypovolemic shock ICD Code: R57.1 - Hypovolemic shock SNOMED: 20877606 Status: Acute (4) Respiratory failure ICD Code: J96.90 - Respiratory failure, unspecified, unspecified whether with hypoxia or hypercapnia SNOMED: 424102166 (5) Seizure disorder as sequela of cerebrovascular accident ICD Code: I69.398 - Other sequelae of cerebral infarction; G40.909 - Epilepsy, unspecified, not intractable, without status epilepticus SNOMED: 180470890802077 Status: Chronic (6) Hypoglycemia ICD Code: E16.2 - Hypoglycemia, unspecified SNOMED: 925513179 Status: Acute (7) Hypothermia ICD Code: T68.XXXA - Hypothermia, initial encounter SNOMED: 754249039 Status: Acute Assessment Shock, undifferentiated as of yet--suspect this is primarily driven by hypovolemia and hypoalbuminemia in the setting of months of poor PO intake; also concerning for possible adrenal crisis; cannot rule out sepsis vs cardiogenic but less likely. - Levophed off > 24h and BP stable - LA nml, bcx NGTD, CT CAP no source. UA nml. COVID unlikely but pending. No localizing symptoms. Stop rocephin, monitor clinically. - No e/o bleed on CT - Kalyan/low temp/low BS could point to adrenal issue-- Hydrocortisone 50q6 IV, check cortisol, no e/o adrenal mass - Low alb mgmt as below - Subclinical hypothyroid doubt contributing significantly - Obtained echo, d/w Shanna 09/28 evening, and he graciously agreed to read this patient's echo. Echo done, awaiting read. Hypoalbuminemia--profound with alb 1.2, suspect due to malnutrition - No symptoms of gastroenteropathy, no hx of known cirrhosis, UA neg for prot - Stop IV Alb and monitor. - Nutrition consult placed, appreciate recommendations AHRF--suspect d/t third spacing d/t alb 1.2 and IVF given, lasix given x 1 - Monitor O2 needs, currently requiring 2L NC and comfortable, CXR nml and no resp symptoms, COVID negative - Attempt to wean O2 - No cardiac symptoms Kalyan--d/t BB vs thyroid vs adrenal? - Hold BB - If persists could start LT4 but doubt d/t subclinical hypothyroid - Monitor Hypothermia--resolved Anemia, normocytic - H/H stable - Start vitamins, low iron and folate Hypokalemia--suspect d/t poor intake, repleted - Replete, check mag - Monitor for refeeding syndrome Dysphagia--speech vania, rec'd UGI series and this was nml. 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 - Smoker--nicotine patch - CAD with stent placement 01/2019, hx of RLQ hematoma after stent placed (ultimately discharged on DAPT same admission) SQL Protonix DNR, d/w patient at length and these are her wishes. She was oriented and alert for this conversation and RN present. Plan As above Problem Qualifiers (1) Protein-energy malnutrition: Protein-calorie malnutrition severity: severe Qualified Codes: E43 - Unspecified severe protein-calorie malnutrition (2) Hypothermia: Encounter type: initial encounter Qualified Codes: T68.XXXA - Hypothermia, initial encounter HAMLET JASON DO Sep 29, 2020 19:29
[2020-09-29 21:23] VITALS: BP 130/69
[2020-09-30 00:20] VITALS: BP 139/94
[2020-09-30 05:00] VITALS: BP 138/73
[2020-09-30 05:56] LABS: EOSINOPHIL % 0.1 % (0.0-5.0); LYMPHOCYTES # 1.84 10^3/uL1 (1.0-4.8); LYMPHOCYTES % 13.3 % (24.0-44.0); MEAN CORP HGB 31.6 pg (26-34); MONOCYTES # 0.8 10^3/uL (0.3-0.8); MONOCYTES % 5.6 % (5.0-12.0); NEUTROPHIL # 11.2 10^3/uL (1.8-7.7); NEUTROPHILS % 80.4 % (41.0-85.0); PLATELET COUNT 142 10^3/uL (150-400); RED CELL DISTRIBUTION WIDTH 13.1 % (11.5-14.5)
[2020-09-30 06:26] LABS: CALCIUM 9.7 mg/dL (8.4-10.5)
[2020-09-30] MEDS: HUMALOG SQ SCH ×3 (08:00→17:08)
[2020-09-30] MEDS ORDERED: POTASSIUM CHLORIDE PO ONE (08:00)
[2020-09-30] MEDS ORDERED: KCL 20MEQ/100ML 100 ML IV ONE (08:00)
[2020-09-30] MEDS ORDERED: MAGNESIUM SULFATE 50 ML IV ONE (08:00)
[2020-09-30] MEDS: FERROUS SULFATE PO SCH (08:29)
[2020-09-30] MEDS: FOLIC ACID PO SCH (08:30)
[2020-09-30] MEDS: BUSPAR PO SCH ×2 (08:30→20:48)
[2020-09-30] MEDS: KEPPRA PO SCH ×2 (08:30→20:48)
[2020-09-30] MEDS: PAXIL PO SCH (08:30)
[2020-09-30] MEDS: PROTONIX IV IV SCH (08:31)
[2020-09-30] MEDS: SOLU-CORTEF IV SCH ×2 (08:31→20:47)
[2020-09-30] MEDS: NICOTINE 14MG PATCH TD SCH (08:33)
[2020-09-30 08:35] VITALS: BP 136/60
[2020-09-30] MEDS: LOVENOX SQ SCH (08:37)
--- NOTE | 2020-09-30 09:23 | DIET.OP ---
Nutrition Asmt/Malnutrit 2-17 Actual Date of Review: Sep 30, 2020 Nutritional Screening: Malnutr/Diet Consult Diagnosis: hypovolemia shock, hypoglycemia Pertinent Medical Hx/Surgical: HTN, hyperlipidemia, COPD, GERD, CVA with residual speech difficulty, CHF, DM, RA Subjective Information: f/u - UGI series came back normal. pt tolerated puree/thin liquids yesterday per [facility] [employer]. She was a total assist with feeding for dinner. An updated wt is 143# using the chair scale. PT presented to ED with BG of 44 mg/dl. She reports months of lethargy and poor po intake at home. She has a hx of poor appetite and wt loss reporting in January 2019 an 85# wt loss and poor appetite for the previous year. Pt discharged from SNF 2 months ago and has [facility] at home with caregiver and HH services. Wt Hx: Jun 2018: 154# January 2019: 151# Current: 143# Current Diet Order/Nutrition S: Puree/thin liquids Patient /S.O: Not Indicated Pertinent Meds Protonix, Folic acid, Ferrous sulfate, Humalog ordered - not needed/administered since 09/28 Pertinent Labs Abnormal: Na 146, K 2.5, Cl 113, BG 183, glucose POC 150-168 Height (Feet): 5 Height (Inches): 6 Current Weight: 143 Usual Weight: 154 %IBW: 106 Recent Weight Change: No (not significant) Weight Status: Appropriate Difficult in: Swallowing (followed/treated by [facility] [employer]) Food Allergies: No Cultural/Ethnic/Mandaen Yadira: none BEE in Kcals: Use Current Weight Calories/Kcals/Kg: MSJ 1-1.3 Kcals Calculated: 8849-1390 Protein: Use Current Weight Protein g/k-1.1 Protein Calculated: 65-72 Fluid: ml: 1 ml/kcal Nutritional Problem: Nutr. Problems Present Problems: Inadequate oral intake Etiology: Low appetite, dysphagia Signs/Symptoms: patients report of months of poor po intake Recommendations by RD: Add supplement feedings RD Comments: 1. Continue diet as recommended by [facility] [employer]. 2. Nursing to assist with each meal, and encourage po intake. 3. Small frequent meals and snacks 4. Recommend Glucerna oral supplement BID between meals 5. Recommend daily MVI. 6. RD to monitor po intake. If adequate po intake is not possible at this time due to dysphagia and patient desires aggressive medical treatment consider nutrition support options (EN, PEG tube placement) 7. Continue to monitor BG and treat as indicated. 8. Monitor K and continue replacement as appropriate. Expected Outcomes PO intake to meet 100% of the patients needs the next 5 days. If po intake can not meet her needs explore nutrition support options and the pts desire for this. Malnutrtion/Nutrition Risk Edu: No MD Notificiation Needed?: Yes (Recommend Glucerna oral supplent BID ) Samantha Pisano Sep 30, 2020 09:23
[2020-09-30] MEDS ORDERED: NS 500ML 500 ML IV ONE (10:30)
[2020-09-30 11:57] VITALS: BP 136/66
--- NOTE | 2020-09-30 14:54 | NUR ---
DISCHARGE PLAN/REFERRAL [facility] CM F/U WITH [email or web address] AND REFERRAL FAXED AND PENDING AUTH.
[2020-09-30] MEDS: VENTOLIN HFA IH PRN (15:00)
[2020-09-30 17:10] VITALS: BP 145/85
[2020-09-30 20:51] VITALS: BP 111/56
--- NOTE | 2020-09-30 23:10 | PRM.PN ---
Progress Note Subjective Date: Sep 30, 2020 Time: 18:20 Physician Notes: Patient with much more energy today. Keeping PO down. Lots of difficulty with ambulation d/t generalized weakness. PT recommended SNF, but patient very sure that she would like to go home and understands risk of falling or other complications. Objective Review IO, Exams,& Results Problems Acute/Active Problems: (1) Hypoglycemia (2) Hypothermia (3) Hypovolemic shock (4) Protein-energy malnutrition Resolved Problems: (1) Hypokalemia Vital Signs Date Time Temp Pulse Resp B/P (MAP) Pulse Ox O2 Delivery O2 Flow Rate FiO2 09/30/20 20:51 98.2 84 20 111/56 (74) 95 09/30/20 14:40 Room Air 09/30/20 13:00 21 09/29/20 21:00 2.00 Intake and Output 09/30/20 07:00 # Voids 2 Laboratory Tests Test 09/29/20 04:44 09/29/20 07:54 09/29/20 13:09 09/29/20 20:57 White Blood Count 14.6 10^3/uL Red Blood Count 2.52 10^6/uL Hemoglobin 8.0 g/dL Hematocrit 24.5 % Mean Corpuscular Volume 97.2 fL Mean Corpuscular Hemoglobin 31.7 pg Mean Corpuscular Hemoglobin Concent 32.7 g/dL Red Cell Distribution Width 12.9 % Platelet Count 154 10^3/uL Mean Platelet Volume 12.6 fL Neutrophils (%) (Auto) 86.2 % Lymphocytes (%) (Auto) 7.5 % Monocytes (%) (Auto) 5.5 % Neutrophils # (Auto) 12.6 10^3/uL Lymphocytes # (Auto) 1.09 10^3/uL1 Monocytes # (Auto) 0.8 10^3/uL Absolute Immature Granulocyte (auto 0.10 10^3 u/L Absolute Eosinophils (auto) 0.0 10^3/uL Immature Granulocytes % 0.70 % Eosinophils % 0.0 % Basophils % 0.1 % Basophils # 0.0 10^3/uL Sodium Level 145 mmol/L Potassium Level 3.2 mmol/L Chloride Level 113.0 mmol/L Carbon Dioxide Level 22.6 mmol/L Anion Gap 12.6 Blood Urea Nitrogen 17 mg/dL Creatinine 1.28 mg/dL Estimated GFR () 50.0 Est GFR (CKD-EPI)(Non-Afr Citizen Of [place]) 41.3 BUN/Creatinine Ratio 13.0 Glucose Level 88 mg/dL Calcium Level 9.3 mg/dL Phosphorus Level 2.6 mg/dL Magnesium Level 2.1 mg/dL Total Bilirubin 0.4 mg/dL Aspartate Amino Transf (AST/SGOT) 23 U/L Alanine Aminotransferase (ALT/SGPT) 16 U/L Alkaline Phosphatase 52 U/L Total Protein 5.3 g/dL Albumin 3.9 g/dL Globulin 1.4 Albumin/Globulin Ratio 2.785 Bedside Glucose 98 123 244 Test 09/30/20 04:29 09/30/20 05:54 09/30/20 07:55 09/30/20 10:58 White Blood Count 13.9 10^3/uL Red Blood Count 2.69 10^6/uL Hemoglobin 8.5 g/dL Hematocrit 25.9 % Mean Corpuscular Volume 96.3 fL Mean Corpuscular Hemoglobin 31.6 pg Mean Corpuscular Hemoglobin Concent 32.8 g/dL Red Cell Distribution Width 13.1 % Platelet Count 142 10^3/uL Mean Platelet Volume 12.9 fL Neutrophils (%) (Auto) 80.4 % Lymphocytes (%) (Auto) 13.3 % Monocytes (%) (Auto) 5.6 % Neutrophils # (Auto) 11.2 10^3/uL Lymphocytes # (Auto) 1.84 10^3/uL1 Monocytes # (Auto) 0.8 10^3/uL Absolute Immature Granulocyte (auto 0.08 10^3 u/L Absolute Eosinophils (auto) 0.0 10^3/uL Immature Granulocytes % 0.60 % Eosinophils % 0.1 % Basophils % 0.0 % Basophils # 0.0 10^3/uL Sodium Level 146 mmol/L Potassium Level 2.5 mmol/L Chloride Level 113.0 mmol/L Carbon Dioxide Level 24.0 mmol/L Anion Gap 11.5 Blood Urea Nitrogen 16 mg/dL Creatinine 1.12 mg/dL Estimated GFR () 58.4 Est GFR (CKD-EPI)(Non-Afr Citizen Of The [place]) 48.2 BUN/Creatinine Ratio 14.0 Glucose Level 183 mg/dL Calcium Level 9.7 mg/dL Magnesium Level 1.9 mg/dL Total Bilirubin 0.4 mg/dL Aspartate Amino Transf (AST/SGOT) 28 U/L Alanine Aminotransferase (ALT/SGPT) 17 U/L Alkaline Phosphatase 54 U/L Total Protein 5.1 g/dL Albumin 3.6 g/dL Globulin 1.5 Albumin/Globulin Ratio 2.400 Bedside Glucose 168 150 255 Test 09/30/20 16:23 Bedside Glucose 350 Current Medications Medications (Trade) Dose Ordered Sig/Jacques PRN Reason Start Time Stop Time Status Last Admin Acetaminophen/ Hydrocodone Bitart ([place] 5mg) 1 ea Q6HR PRN PAIN 4 - 6 09/29/20 17:30 10/29/20 17:29 09/29/20 17:39 Albuterol Sulfate (Ventolin Hfa) 2 inh PRN PRN WHEEZING 09/29/20 17:30 10/29/20 17:29 09/30/20 15:00 Buspirone HCl (Buspar) 15 mg BID 09/28/20 21:00 10/28/20 20:59 09/30/20 20:48 Enoxaparin Sodium (Lovenox) 40 mg Q24HRS 09/28/20 09:00 10/28/20 08:59 09/30/20 08:37 Ferrous Sulfate (Ferrous Sulfate) 325 mg DAILY 09/29/20 09:00 10/29/20 08:59 09/30/20 08:29 Folic Acid (Folic Acid) 1 mg DAILY 09/29/20 09:00 10/29/20 08:59 09/30/20 08:30 Hydrocortisone Sodium Succinate (Solu-Cortef) 50 mg BID 09/29/20 09:00 10/28/20 00:00 09/30/20 20:47 Insulin Human Lispro (Humalog) Humalog. Give when food is... TIDM 09/28/20 08:00 10/28/20 07:59 09/30/20 17:08 Levetiracetam (Keppra) 500 mg BID 09/28/20 00:00 10/28/20 00:00 09/30/20 20:48 Nicotine (Nicotine 14mg Patch) 1 each DAILY 09/28/20 09:00 10/28/20 08:59 09/30/20 08:33 Ondansetron HCl (Zofran) 4 mg Q4H PRN NAUSEA / VOMITING 09/28/20 20:30 12/4/20 20:29 Paroxetine HCl (Paxil) 20 mg DAILY 09/29/20 09:00 10/29/20 08:59 09/30/20 08:30 Potassium Chloride (Klor-Con 10) 20 meq STAT 09/29/20 08:00 10/29/20 07:59 Orders - HAMLET JASON E DO Hydrocortisone Sod Succinate (Solu-Cande (09/29/20 09:00) Potassium Chloride (Klor-Con 10) (09/29/20 08:00) Xr Ugi (09/29/20 13:03) Pt Clarify Mob. Treatment (09/29/20 14:02) Dysphagia-Thin Liquids-Level 0 (09/29/20 Dinner) Dysphg-Pureed Diet(L4) (09/29/20 Dinner) Malnutrition Screening (09/29/20 Dinner) 90 Degree Positioning With Po (09/29/20 16:11) Alternate Solids/Liquids (09/29/20 16:11) Check/Clear Oral After Po (09/29/20 16:11) Slow Rate Of Intake (09/29/20 16:11) Small Bites/Sips (09/29/20 16:11) Supervision With Po (09/29/20 16:11) Upright For 30min Post Po (09/29/20 16:11) Crush Meds (09/29/20 16:11) Initiate Dysphagia Poc (Rad/St (09/29/20 16:11) Lvl Of Supervis For Mealtime (09/29/20 Dinner) Customer Service Representative Teacher Clarify Treatment (09/29/20 16:11) Hydrocodone/Acetaminophen ([place] 5mg) (09/29/20 17:30) Albuterol Sulfate (Ventolin Hfa) (09/29/20 17:30) Cbc With Auto Diff (10/01/20 07:00) Comprehensive Metabolic Panel (10/01/20 07:00) Magnesium (10/01/20 07:00) Heart: Regular rate, Normal S1, Normal S2 Abdomen: Normal bowel sounds, Soft, No tenderness Lungs: Clear to auscultation, Normal air movement Assessment & Plan: Problems/Diagnosis: (1) Hypothermia ICD Code: T68.XXXA - Hypothermia, initial encounter SNOMED: 677154760 Status: Acute (2) Respiratory failure ICD Code: J96.90 - Respiratory failure, unspecified, unspecified whether with hypoxia or hypercapnia SNOMED: 448988457 (3) Seizure disorder as sequela of cerebrovascular accident ICD Code: I69.398 - Other sequelae of cerebral infarction; G40.909 - Epilepsy, unspecified, not intractable, without status epilepticus SNOMED: 692196226008901 Status: Chronic (4) Hypoglycemia ICD Code: E16.2 - Hypoglycemia, unspecified SNOMED: 064528463 Status: Acute (5) Hypokalemia ICD Code: E87.6 - Hypokalemia SNOMED: 56238412 Status: Resolved (6) Protein-energy malnutrition ICD Code: E46 - Unspecified protein-calorie malnutrition SNOMED: 673796204 Status: Acute (7) Hypovolemic shock ICD Code: R57.1 - Hypovolemic shock SNOMED: 06072316 Status: Acute Assessment Shock--hypovolemic due to hypoalbuminemia + antihypertensives taken at home most likely etiology. - Levophed off > 48h and BP stable - LA nml, bcx NGTD, CT CAP no source. UA nml. COVID unlikely but pending. No localizing symptoms. Stopped rocephin, monitor clinically. - No e/o bleed on CT - Kalyan/low temp/low BS could point to adrenal issue--cortisol slightly high and no e/o adrenal mass, stress dose steroids stopped - Low alb mgmt as below - Subclinical hypothyroid doubt contributing significantly, can f/u o/p - Obtained echo, d/w Shanna 09/28 evening, and he graciously agreed to read this patient's echo. Echo done, awaiting read. Hypoalbuminemia--profound with alb 1.2, suspect due to malnutrition - No symptoms of gastroenteropathy, no hx of known cirrhosis, UA neg for prot - Stop IV Alb and monitor. - Nutrition consult placed, appreciate recommendations AHRF--suspect d/t third spacing d/t alb 1.2 and IVF given, lasix given x 1 - Monitor O2 needs, currently requiring 2L NC and comfortable, CXR nml and no resp symptoms, COVID negative - Attempt to wean O2 - No cardiac symptoms Kalyan--d/t BB vs thyroid vs adrenal? - Hold BB - If persists could start LT4 but doubt d/t subclinical hypothyroid - Monitor Hypothermia--resolved Anemia, normocytic - H/H stable - Start vitamins, low iron and folate Hypokalemia--suspect d/t poor intake, repleted - Replete, check mag - Monitor for refeeding syndrome Dysphagia--speech vania, rec'd UGI series and this was nml. Ok to proceed with diet. 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 - Smoker--nicotine patch - CAD with stent placement 01/2019, hx of RLQ hematoma after stent placed (ultimately discharged on DAPT same admission) SQL Protonix DNR, d/w patient at length and these are her wishes. Dispo: PT recommended SNF, but patient very sure that she would like to go home and understands risk of falling or other complications. If she keeps food down and can walk with walker tomorrow without falls likely can d/c home with C--will defer to rounding provider tomorrow. Will need O2 challenge. Central line was removed today. If BP dips back down after stopping steroids consider home on midodrine. Plan as above Problem Qualifiers (1) Hypothermia: Encounter type: initial encounter Qualified Codes: T68.XXXA - Hypothermia, initial encounter (2) Protein-energy malnutrition: Protein-calorie malnutrition severity: severe Qualified Codes: E43 - Unspecified severe protein-calorie malnutrition HAMLET JASON DO Sep 30, 2020 23:10
[2020-10-01 00:22] VITALS: BP 134/62
[2020-10-01 03:48] VITALS: BP 132/78
[2020-10-01 05:47] LABS: BASOPHIL % 0.1 % (0.0-0.2); LYMPHOCYTES # 0.61 10^3/uL1 (1.0-4.8); LYMPHOCYTES % 5.3 % (24.0-44.0); MEAN CORP HGB 31.4 pg (26-34); MONOCYTES # 0.5 10^3/uL (0.3-0.8); MONOCYTES % 4.1 % (5.0-12.0); NEUTROPHIL # 10.3 10^3/uL (1.8-7.7); NEUTROPHILS % 89.9 % (41.0-85.0); PLATELET COUNT 120 10^3/uL (150-400); RED CELL DISTRIBUTION WIDTH 13.2 % (11.5-14.5)
[2020-10-01 06:02] LABS: CALCIUM 8.9 mg/dL (8.4-10.5); CARBON DIOXIDE 22.5 mmol/L (20.0-32)
[2020-10-01 06:19] LABS: LYMPHOCYTE 2 % (25-36); SEGMENTED NEUTROPHILS 98 % (31-76)
[2020-10-01] MEDS: NICOTINE 14MG PATCH TD SCH (08:00)
[2020-10-01 08:01] VITALS: BP 132/69
[2020-10-01] MEDS: FERROUS SULFATE PO SCH (08:42)
[2020-10-01] MEDS: PROTONIX IV IV SCH (08:42)
[2020-10-01] MEDS: FOLIC ACID PO SCH (08:42)
[2020-10-01] MEDS: HUMALOG SQ SCH ×3 (08:48→17:09)
[2020-10-01] MEDS: ZOFRAN IV PRN (08:54)
[2020-10-01] MEDS: BUSPAR PO SCH ×2 (09:41→20:45)
[2020-10-01] MEDS: PAXIL PO SCH (09:41)
[2020-10-01] MEDS: LOVENOX SQ SCH (09:42)
[2020-10-01] MEDS: KEPPRA PO SCH ×2 (09:59→20:45)
[2020-10-01 12:40] VITALS: BP 122/66
[2020-10-01 16:17] VITALS: BP 126/63
[2020-10-01 19:28] VITALS: BP 131/61
[2020-10-01] MEDS: VENTOLIN HFA IH PRN (20:53)
--- NOTE | 2020-10-01 22:31 | PRM.PN ---
Subjective Subjective Date: Oct 01, 2020 Time: 22:24 Subjective Pt s/e today at baseline. Doing well today. Afebrile and HDS. she notes nausea, but no vomiting/diarrhea/constipation, or other acute symptoms. Review of Systems Other Review of systems including general, HEENT, neck, cardiopulmonary, GI, , neuro-musculoskeletal, hematologic, oncologic, endocrinology, infectious disease, dermatologic and psychiatric were reviewed with the patient. Pertinent positives and negatives are as noted in the HPI. Allergies: Coded Allergies: codeine (Verified Adverse Reaction, Mild, Rash, 03/26/20) Scheduled Albuterol Sulfate (Ventolin Hfa), 18 GM IH Q6HR, (Reported) Aspirin (Aspirin Ec), 81 MG PO DAILY Atorvastatin 40MG (Lipitor 40MG), 40 MG PO HS Carvedilol 12.5MG (Coreg 12.MG), 12.5 MG PO BID Cefdinir (Cefdinir), 300 MG PO BID Hydralazine Hcl (Hydralazine Hcl), 25 MG PO TID Insulin Glargine,Hum.rec.anlog (Lantus), 20 UNIT SQ HS Levetiracetam (Keppra), 500 MG PO BID Montelukast Sodium (Montelukast Sodium), 1 TAB PO HS, (Reported) Omeprazole (Omeprazole), 40 MG PO DAILY24, (Reported) Pantoprazole Sodium (Protonix), 40 MG PO DAILY Sacubitril/Valsartan (Entresto 24 mg-26 mg Tablet), 1 EACH PO BID Sertraline Hcl (Zoloft), 1 TAB PO DAILY, (Reported) Ticagrelor (Brilinta), 90 MG PO BID Trazodone Hcl (Trazodone Hcl), 1.5 TAB PO HS, (Reported) Umeclidinium Brm/Vilanterol Tr (Anoro Ellipta 62.5-25 Mcg INH), 1 EACH IH DAILY24, (Reported) Scheduled PRN Nitroglycerin (Nitrostat), 0.4 MG SL PRN PRN for CHEST PAIN Objective Vitals and I/O Vital Sign - Last 24 Hours 10/01/20 10/01/20 10/01/20 10/01/20 00:22 03:20 03:48 08:01 Temp 98.0 98.0 97.7 Pulse 80 89 81 Resp 20 20 19 B/P (MAP) 134/62 (86) 132/78 (96) 132/69 (90) Pulse Ox 98 94 O2 Delivery Nasal Cannula O2 Flow Rate 3.00 91.00 10/01/20 10/01/20 10/01/20 10/01/20 10:31 10:32 12:40 16:17 Temp 97.7 97.9 Pulse 98 98 92 88 Resp 18 18 18 21 B/P (MAP) 122/66 (84) 126/63 (84) Pulse Ox 95 95 96 94 O2 Delivery Room Air FiO2 21 10/01/20 10/01/20 10/01/20 10/01/20 19:28 19:34 20:53 20:55 Temp 97.9 Pulse 84 84 Resp 26 26 26 B/P (MAP) 131/61 (84) Pulse Ox 95 95 95 O2 Delivery Nasal Cannula Room Air O2 Flow Rate 3.00 Intake and Output 10/01/20 06:59 Intake Total 360 ml Output Total 125 ml Balance 235 ml General: Alert, Oriented X3, Cooperative, No acute distress HEENT: Atraumatic, PERRLA, EOMI, Mucous membr. moist/pink Neck: Supple Lungs: Clear to auscultation, Normal air movement Heart: Regular rate, Normal S1, Normal S2 Abdomen: Normal bowel sounds, Soft, No tenderness Extremities: No edema, Normal pulses, No tenderness/swelling Neuro: Normal speech, Strength at 5/5 X4 ext, Normal tone, Sensation intact, Cranial nerves 3-12 NL Psych/Mental Status: Mental status NL, Mood NL Medication List: Current Medications Medications (Trade) Dose Ordered Sig/Jacques PRN Reason Start Time Stop Time Status Last Admin Acetaminophen/ Hydrocodone Bitart ([place] 5mg) 1 ea Q6HR PRN PAIN 4 - 6 09/29/20 17:30 10/29/20 17:29 09/29/20 17:39 Albuterol Sulfate (Ventolin Hfa) 2 inh PRN PRN WHEEZING 09/29/20 17:30 10/29/20 17:29 09/30/20 15:00 Ferrous Sulfate (Ferrous Sulfate) 325 mg DAILY 09/29/20 09:00 10/29/20 08:59 10/01/20 08:42 Folic Acid (Folic Acid) 1 mg DAILY 09/29/20 09:00 10/29/20 08:59 10/01/20 08:42 Paroxetine HCl (Paxil) 20 mg DAILY 09/29/20 09:00 10/29/20 08:59 10/01/20 09:41 Potassium Chloride (Klor-Con 10) 20 meq STAT 09/29/20 08:00 10/29/20 07:59 Lab results: Laboratory Tests Test 09/30/20 04:29 09/30/20 05:54 09/30/20 07:55 09/30/20 10:58 White Blood Count 13.9 10^3/uL Red Blood Count 2.69 10^6/uL Hemoglobin 8.5 g/dL Hematocrit 25.9 % Mean Corpuscular Volume 96.3 fL Mean Corpuscular Hemoglobin 31.6 pg Mean Corpuscular Hemoglobin Concent 32.8 g/dL Red Cell Distribution Width 13.1 % Platelet Count 142 10^3/uL Mean Platelet Volume 12.9 fL Neutrophils (%) (Auto) 80.4 % Lymphocytes (%) (Auto) 13.3 % Monocytes (%) (Auto) 5.6 % Neutrophils # (Auto) 11.2 10^3/uL Lymphocytes # (Auto) 1.84 10^3/uL1 Monocytes # (Auto) 0.8 10^3/uL Absolute Immature Granulocyte (auto 0.08 10^3 u/L Absolute Eosinophils (auto) 0.0 10^3/uL Immature Granulocytes % 0.60 % Eosinophils % 0.1 % Basophils % 0.0 % Basophils # 0.0 10^3/uL Sodium Level 146 mmol/L Potassium Level 2.5 mmol/L Chloride Level 113.0 mmol/L Carbon Dioxide Level 24.0 mmol/L Anion Gap 11.5 Blood Urea Nitrogen 16 mg/dL Creatinine 1.12 mg/dL Estimated GFR () 58.4 Est GFR (CKD-EPI)(Non-Afr [place]) 48.2 BUN/Creatinine Ratio 14.0 Glucose Level 183 mg/dL Calcium Level 9.7 mg/dL Magnesium Level 1.9 mg/dL Total Bilirubin 0.4 mg/dL Aspartate Amino Transf (AST/SGOT) 28 U/L Alanine Aminotransferase (ALT/SGPT) 17 U/L Alkaline Phosphatase 54 U/L Total Protein 5.1 g/dL Albumin 3.6 g/dL Globulin 1.5 Albumin/Globulin Ratio 2.400 Bedside Glucose 168 150 255 Test 09/30/20 16:23 10/01/20 05:18 10/01/20 05:20 10/01/20 06:18 Bedside Glucose 350 241 White Blood Count 11.5 10^3/uL Red Blood Count 2.64 10^6/uL Hemoglobin 8.3 g/dL Hematocrit 25.2 % Mean Corpuscular Volume 95.5 fL Mean Corpuscular Hemoglobin 31.4 pg Mean Corpuscular Hemoglobin Concent 32.9 g/dL Red Cell Distribution Width 13.2 % Platelet Count 120 10^3/uL Mean Platelet Volume 13.1 fL Neutrophils (%) (Auto) 89.9 % Lymphocytes (%) (Auto) 5.3 % Monocytes (%) (Auto) 4.1 % Neutrophils # (Auto) 10.3 10^3/uL Lymphocytes # (Auto) 0.61 10^3/uL1 Monocytes # (Auto) 0.5 10^3/uL Absolute Immature Granulocyte (auto 0.07 10^3 u/L Absolute Eosinophils (auto) 0.0 10^3/uL Immature Granulocytes % 0.60 % Eosinophils % 0.0 % Basophils % 0.1 % Basophils # 0.0 10^3/uL Sodium Level 138 mmol/L Potassium Level 2.8 mmol/L Chloride Level 107.0 mmol/L Carbon Dioxide Level 22.5 mmol/L Anion Gap 11.3 Blood Urea Nitrogen 11 mg/dL Creatinine 1.01 mg/dL Estimated GFR () 65.8 Est GFR (CKD-EPI)(Non-Afr [place]) 54.3 BUN/Creatinine Ratio 10.0 Glucose Level 248 mg/dL Calcium Level 8.9 mg/dL Magnesium Level 2.2 mg/dL Total Bilirubin 0.4 mg/dL Aspartate Amino Transf (AST/SGOT) 26 U/L Alanine Aminotransferase (ALT/SGPT) 21 U/L Alkaline Phosphatase 55 U/L Total Protein 4.5 g/dL Albumin 3.0 g/dL Globulin 1.5 Albumin/Globulin Ratio 2.000 Segmented Neutrophils 98 % Lymphocytes 2 % Platelet Estimate SLIGHTLY DECREASED Platelet Morphology NORMAL Test 10/01/20 07:51 10/01/20 12:10 10/01/20 17:01 10/01/20 21:25 Bedside Glucose 218 177 168 151 My orders: Orders - SINNETT,JODI M MD Multivitamin,Therapeutic (Thera) (10/02/20 09:00) Assessment/Plan Assessment/Plan Assessment/Plan Hypovolemic Shock - Most likely due to hypoalbuminemia + antihypertensives taken at home - Levophed off > 48h and BP stable - LA nml, bcx NGTD, CT CAP no source. UA nml. COVID negative. No localizing symptoms. - Stopped rocephin, monitor clinically. - No e/o bleed on CT - Kalyan/low temp/low BS could point to adrenal issue --> cortisol slightly high and no e/o adrenal mass, stress dose steroids stopped - Low alb mgmt as below - Subclinical hypothyroid doubt contributing significantly, can f/u o/p - Obtained echo; Dr. Santo d/w Dr. Otero 09/28 evening, and he graciously agreed to read this patient's echo. Echo done, awaiting read. Severe Protein Calorie Malnutrition Hypoalbuminemia - profound with alb 1.2, suspect due to chronic malnutrition and chronically poor diet - No symptoms of gastroenteropathy, no hx of known cirrhosis, UA neg for prot - Nutrition consult placed, appreciate recommendations AHRF; resolved - likely d/t third spacing d/t alb 1.2 and IVF given, lasix given x 1 - Monitor O2 needs, currently not requiring O2 and comfortable, CXR nml and no resp symptoms, COVID negative - No cardiac symptoms Kalyan - d/t BB vs thyroid vs adrenal? - Hold BB - If persists could start LT4 but doubt d/t subclinical hypothyroid - Monitor Hypothermia; resolved Anemia, normocytic - H/H stable - Start multivitamins, low iron and folate Hypokalemia - suspect d/t poor intake, repleted - Replete, check mag - Monitor for refeeding syndrome Dysphagia - speech evald, rec'd UGI series and this was nml. Ok to proceed with diet. - Per Dr. 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 - Tobacco use: nicotine patch - CAD with stent placement 01/2019, hx of RLQ hematoma after stent placed (ultimately discharged on DAPT same admission) VTE ppx: Jack GI ppx: Protonix CODE: DNAR/COT; confirmed with patient and these are her wishes. Dispo: PT recommended SNF, but patient very sure that she would like to go home and understands risk of falling or other complications. If she keeps food down and can walk with walker tomorrow without falls likely can d/c home with C--will defer to rounding provider tomorrow. Will need O2 challenge. Central line was removed today. Keeping patient for today to monitor BP now that steroids are leaving her system. If BP stable 10/02, she may go home. If BP dips back down after stopping steroids, could go home on midodrine. JODI LYLES MD Oct 01, 2020 22:31
[2020-10-02 00:51] VITALS: BP 122/61
[2020-10-02] MEDS: ZOFRAN IV PRN ×2 (04:08→09:07)
[2020-10-02] MEDS: VENTOLIN HFA IH PRN (04:30)
[2020-10-02 05:14] VITALS: BP 114/57
[2020-10-02] MEDS: NICOTINE 14MG PATCH TD SCH (07:30)
[2020-10-02] MEDS ORDERED: THERA PO SCH (09:00)
[2020-10-02] MEDS: FERROUS SULFATE PO SCH (09:06)
[2020-10-02] MEDS: PAXIL PO SCH (09:06)
[2020-10-02] MEDS: KEPPRA PO SCH (09:06)
[2020-10-02] MEDS: BUSPAR PO SCH (09:06)
[2020-10-02] MEDS: FOLIC ACID PO SCH (09:07)
[2020-10-02] MEDS: PROTONIX IV IV SCH (09:07)
[2020-10-02] MEDS: HUMALOG SQ SCH ×2 (09:10→12:00)
[2020-10-02] MEDS: LOVENOX SQ SCH (09:11)
[2020-10-02 10:47] VITALS: BP 125/58
[2020-10-02] MEDS ORDERED: NICO-449 TD (10:58)
[2020-10-02] MEDS ORDERED: Folic Acid PO (10:58)
[2020-10-02] MEDS ORDERED: MULTIVITAMIN THERAPEUTIC PO (10:58)
--- NOTE | 2020-10-02 11:06 | PRM.DC ---
Subjective Subjective Date of Discharge: Oct 02, 2020 Time of Request to Discharge: 11:00 Subjective Patient was admitted for hypovolemic shock and hypoalbuminemia. Patient hemodynamically stable and ambulatory currently. Patient states that she has HH and was given nutritional information from dietary. Patient History: Unknown 33 MOTHER 34 FATHER Exam Vital Signs Vital Signs Date Time Temp Pulse Resp B/P (MAP) Pulse Ox O2 Delivery O2 Flow Rate FiO2 10/02/20 10:47 98.2 78 18 125/58 (80) 92 Room Air 10/01/20 19:34 3.00 10/01/20 10:31 21 General Appearance: Alert, Oriented X3, Cooperative, No acute distress HEENT: Atraumatic Respiratory: Clear to auscultation, Normal air movement Cardiovascular: Regular rate, Normal S1, Normal S2 Abdominal: Normal bowel sounds, Soft, No tenderness, No hepatospenomegaly Extremities: No clubbing, No cyanosis, No edema, Normal pulses Skin: No rash, No breakdown, No lesions Neuro: Normal speech, Strength at 5/5 X4 ext, Sensation intact Psych/Mental Status: Mental status NL, Mood NL VTE VTE Risk Total Score: 2 VTE Risk Score VTE Risk: Score 0-1 = Low Risk (Aggressive mobilization; early ambulation; no VTE prophylaxis required) Score 2: Moderate Risk (Intermittent/Pneumatic Compression Device OR Lovenox/Heparin/Coumadin) Score 3-4: High Risk (Intermittent/Pneumatic Compression Device AND Lovenox/Heparin/Coumadin) Score > or =5: Highest Risk (Intermittent/Pneumatic Compression Device AND Lovenox/Heparin/Coumadin) Antico:Hep/LMWH/Coum/Xarelto: No Mechanical device ordered: Yes Reasons not ordering prophylax: At risk for falls Objective Vitals and I/O Vital Sign - Last 24 Hours 10/01/20 10/01/20 10/01/20 10/01/20 12:40 16:17 19:28 19:34 Temp 97.7 97.9 97.9 Pulse 92 88 84 Resp 18 21 26 B/P (MAP) 122/66 (84) 126/63 (84) 131/61 (84) Pulse Ox 96 94 95 O2 Delivery Nasal Cannula O2 Flow Rate 3.00 10/01/20 10/01/20 10/02/20 10/02/20 20:53 20:55 00:51 04:30 Temp 98.3 Pulse 84 83 83 Resp 26 26 20 20 B/P (MAP) 122/61 (81) Pulse Ox 95 95 94 94 O2 Delivery Room Air 10/02/20 10/02/20 05:14 10:47 Temp 98.3 98.2 Pulse 86 78 Resp 19 18 B/P (MAP) 114/57 (76) 125/58 (80) Pulse Ox 94 92 O2 Delivery Room Air Intake and Output 10/02/20 06:59 Intake Total 804 ml Balance 804 ml General: Alert, Oriented X3, Cooperative, No acute distress HEENT: Atraumatic, PERRLA, EOMI, Mucous membr. moist/pink Neck: Supple Lungs: Clear to auscultation, Normal air movement Heart: Regular rate, Normal S1, Normal S2 Abdomen: Normal bowel sounds, Soft, No tenderness Extremities: No edema, Normal pulses, No tenderness/swelling Neuro: Normal speech, Strength at 5/5 X4 ext, Normal tone, Sensation intact, Cranial nerves 3-12 NL Psych/Mental Status: Mental status NL, Mood NL All Results(Lab/Rad) Laboratory Tests Test 10/01/20 12:10 10/01/20 17:01 10/01/20 21:25 10/02/20 04:37 Bedside Glucose 177 168 151 164 Test 10/02/20 07:55 Bedside Glucose 162 Current Medications Medications (Trade) Dose Ordered Sig/Jacques Route PRN Reason Start Time Stop Time Status Last Admin Dose Admin Dextrose 500 ml @ 100 mls/hr STAT STAT IV 09/27/20 05:22 09/27/20 10:21 DC 09/27/20 05:44 Dextrose 500 ml @ ud STK-MED ONCE IV 09/27/20 05:34 09/27/20 05:36 DC Sodium Chloride 1,000 ml @ 1,200 mls/hr Q50M STAT IV 09/27/20 05:57 09/27/20 15:45 DC 09/27/20 06:12 Norepinephrine Bitartrate 8 mg/ Sodium Chloride 250 ml @ 0 mls/hr STAT STAT IV 09/27/20 06:02 09/27/20 06:03 DC 09/27/20 06:30 Sodium Chloride 250 ml @ ud STK-MED ONCE IV 09/27/20 06:26 09/27/20 06:28 DC Norepinephrine Bitartrate (Levophed) 4 mg STK-MED ONCE .ROUTE 09/27/20 06:27 09/27/20 06:29 DC Ceftriaxone Sodium 1000 mg/ Sodium Chloride 100 ml @ 100 mls/hr STAT STAT IV 09/27/20 07:07 09/27/20 08:06 DC 09/27/20 07:38 Potassium Chloride (Potassium Chloride) 40 meq STAT STAT PO 09/27/20 07:07 09/27/20 07:10 DC 09/27/20 07:39 Sodium Chloride 1,000 ml @ 0 mls/hr Q0M ONCE IV 09/27/20 07:30 09/27/20 15:45 DC 09/27/20 07:41 Methylprednisolone Sodium Succinate (Solu-Medrol) 250 mg STAT STAT IV 09/27/20 07:18 09/27/20 15:46 DC 09/27/20 07:39 Sodium Chloride 100 ml @ ud STK-MED ONCE IV 09/27/20 07:27 09/27/20 07:29 DC Methylprednisolone Sodium Succinate (Solu-Medrol) 125 mg STK-MED ONCE .ROUTE 09/27/20 07:27 09/27/20 07:29 DC Potassium Chloride (Potassium Chloride) 40 meq STK-MED ONCE .ROUTE 09/27/20 07:27 09/27/20 07:29 DC Ceftriaxone Sodium (Rocephin) 1,000 mg STK-MED ONCE .ROUTE 09/27/20 07:27 09/27/20 07:29 DC Potassium Chloride/Sodium Chloride 1,000 ml @ ud STK-MED ONCE IV 09/27/20 12:13 09/27/20 12:15 DC Potassium Chloride/Sodium Chloride 1,000 ml @ 100 mls/hr Q10H IV 09/27/20 12:30 09/27/20 22:41 DC 09/27/20 23:42 Norepinephrine Bitartrate 8 mg/ Sodium Chloride 258 ml @ 0 mls/hr IV 09/27/20 22:00 10/01/20 12:29 DC 09/27/20 22:01 Insulin Glargine (Lantus) 10 unit STAT STAT SQ 09/27/20 21:47 09/28/20 01:02 DC 09/27/20 21:58 Insulin Human Lispro (Humalog) 3 unit OT ONCE SQ 09/27/20 22:00 09/28/20 01:02 DC 09/27/20 21:59 Norepinephrine Bitartrate 8 mg/ Sodium Chloride 258 ml @ 10 mls/hr TITRATE IV 09/27/20 22:00 09/28/20 01:04 DC Albumin Human (Buminate 25%) 100 ml Q6HR IV 09/28/20 00:00 09/29/20 08:02 DC 09/29/20 01:46 Hydrocortisone Sodium Succinate (Solu-Cortef) 50 mg Q6HR IV 09/28/20 00:00 09/29/20 08:02 DC 09/29/20 02:07 Pantoprazole Sodium (Protonix Iv) 40 mg DAILY IV 09/27/20 23:00 10/27/20 22:59 10/02/20 09:07 Enoxaparin Sodium (Lovenox) 40 mg Q24HRS SQ 09/28/20 09:00 10/28/20 08:59 10/02/20 09:11 Ceftriaxone Sodium 1000 mg/ Sodium Chloride 100 ml @ 100 mls/hr Q24HRS IV 09/28/20 09:00 09/29/20 19:34 DC 09/29/20 11:00 Nicotine (Nicotine 14mg Patch) 1 each DAILY TD 09/28/20 09:00 10/28/20 08:59 09/30/20 08:33 Acetaminophen (Tylenol) 500 mg Q6H PRN PO PAIN 1 - 3 09/27/20 23:00 10/27/20 22:59 09/29/20 09:44 Insulin Human Lispro (Humalog) Humalog. Give when food is... TIDM SQ 09/28/20 08:00 10/28/20 07:59 10/02/20 09:10 Dextrose (Dextrose 50%-Water Syringe) 25 ml STAT PRN IV HYPOGLYCEMIA 09/27/20 23:00 10/27/20 22:59 Levetiracetam (Keppra) 500 mg BID PO 09/28/20 00:00 10/28/20 00:00 10/02/20 09:06 Furosemide (Lasix) 40 mg STAT STAT IV 09/28/20 05:52 09/28/20 08:13 DC 09/28/20 05:58 Furosemide (Lasix) 20 mg STK-MED ONCE .ROUTE 09/28/20 05:53 09/28/20 05:56 DC Sodium Chloride 100 ml @ ud STK-MED ONCE IV 09/28/20 10:14 09/28/20 10:17 DC Ceftriaxone Sodium (Rocephin) 1,000 mg STK-MED ONCE .ROUTE 09/28/20 10:14 09/28/20 10:17 DC Sodium Chloride 500 ml @ 300 mls/hr Q1H40M ONCE IV 09/28/20 11:30 09/28/20 11:52 DC Sterile Water 20 ml @ ud STK-MED ONCE .ROUTE 09/28/20 12:33 09/28/20 12:36 DC Magnesium Sulfate 50 ml @ 50 mls/hr OT ONCE IV 09/28/20 13:00 09/28/20 14:02 DC 09/28/20 15:39 Magnesium Sulfate 50 ml @ ud STK-MED ONCE IV 09/28/20 15:35 09/28/20 15:38 DC Sterile Water 20 ml @ ud STK-MED ONCE .ROUTE 09/28/20 17:51 09/28/20 17:54 DC Paroxetine HCl (Paxil) 20 mg DAILY PO 09/29/20 09:00 10/29/20 08:59 10/02/20 09:06 Buspirone HCl (Buspar) 15 mg BID PO 09/28/20 21:00 10/28/20 20:59 10/02/20 09:06 Ondansetron HCl (Zofran) 4 mg Q4H PRN IV NAUSEA / VOMITING 09/28/20 20:30 10/28/20 20:29 10/02/20 09:07 Ferrous Sulfate (Ferrous Sulfate) 325 mg DAILY PO 09/29/20 09:00 10/29/20 08:59 10/02/20 09:06 Folic Acid (Folic Acid) 1 mg DAILY PO 09/29/20 09:00 10/29/20 08:59 10/02/20 09:07 Albumin Human (Buminate 25%) 100 ml BID IV 09/29/20 09:00 09/29/20 19:20 DC 09/29/20 09:44 Hydrocortisone Sodium Succinate (Solu-Cortef) 50 mg BID IV 09/29/20 09:00 09/30/20 23:06 DC 09/30/20 20:47 Potassium Chloride (Klor-Con 10) 20 meq STAT PO 09/29/20 08:00 10/29/20 07:59 Sodium Chloride 100 ml @ ud STK-MED ONCE IV 09/29/20 11:17 09/29/20 11:20 DC Ceftriaxone Sodium (Rocephin) 1,000 mg STK-MED ONCE .ROUTE 09/29/20 11:17 09/29/20 11:20 DC Albuterol Sulfate (Ventolin) 2.5 mg PRN PRN IH WHEEZING 09/29/20 13:30 09/29/20 17:26 DC Acetaminophen/ Hydrocodone Bitart ([place] 5mg) 1 ea STK-MED ONCE PO 09/29/20 17:06 09/29/20 17:08 DC Acetaminophen/ Hydrocodone Bitart ([place] 5mg) 1 ea Q6HR PRN PO PAIN 4 - 6 09/29/20 17:30 10/29/20 17:29 09/29/20 17:39 Albuterol Sulfate (Ventolin Hfa) 2 inh PRN PRN IH WHEEZING 09/29/20 17:30 10/29/20 17:29 10/01/20 20:53 Potassium Chloride 100 ml @ 50 mls/hr OT ONCE IV 09/30/20 08:00 09/30/20 09:59 DC 09/30/20 08:32 Magnesium Sulfate 50 ml @ 50 mls/hr OT ONCE IV 09/30/20 08:00 09/30/20 08:59 DC 09/30/20 08:35 Potassium Chloride (Potassium Chloride) 40 meq OT ONCE PO 09/30/20 08:00 09/30/20 08:20 DC 09/30/20 08:31 Sodium Chloride 500 ml @ ud STK-MED ONCE IV 09/30/20 10:30 09/30/20 10:32 DC Medication Reconciliation Scheduled Albuterol Sulfate (Ventolin Hfa), 18 GM IH Q6HR, (Reported) Aspirin (Aspirin Ec), 81 MG PO DAILY Atorvastatin 40MG (Lipitor 40MG), 40 MG PO HS Carvedilol 12.5MG (Coreg 12.MG), 12.5 MG PO BID Cefdinir (Cefdinir), 300 MG PO BID Hydralazine Hcl (Hydralazine Hcl), 25 MG PO TID Insulin Glargine,Hum.rec.anlog (Lantus), 20 UNIT SQ HS Levetiracetam (Keppra), 500 MG PO BID Lipase/Protease/Amylase (Creon Dr 12,000 Units Capsule), 1 EACH PO AC Montelukast Sodium (Montelukast Sodium), 1 TAB PO HS, (Reported) Nicotine (Nicotine Patch), 1 EACH TD DAILY Omeprazole (Omeprazole), 40 MG PO DAILY24, (Reported) Pantoprazole Sodium (Protonix), 40 MG PO DAILY Sacubitril/Valsartan (Entresto 24 mg-26 mg Tablet), 1 EACH PO BID Sertraline Hcl (Zoloft), 1 TAB PO DAILY, (Reported) Ticagrelor (Brilinta), 90 MG PO BID Trazodone Hcl (Trazodone Hcl), 1.5 TAB PO HS, (Reported) Umeclidinium Brm/Vilanterol Tr (Anoro Ellipta 62.5-25 Mcg INH), 1 EACH IH DAILY24, (Reported) [Folic Acid], 1 MG PO DAILY [Multivitamin,Therapeutic], 1 EACH PO DAILY Scheduled PRN Nitroglycerin (Nitrostat), 0.4 MG SL PRN PRN for CHEST PAIN Plan Assessment 70 yo female pleasant at bedside sitting up working with PT. Patient is hemodynamically stable, afebrile and no signs of distress, no acute episodes overnight. Patient does complain of RUQ pain that is chronic in nature. will evaluate lipase prior to DC. Patient is ready to go home and refuses to go to SNF. Patient states that she has family that is going to help stay with her. She says that she has set up and was given nutrition counseling here inpatient by RD. Patient to DC home. Follow up within 1 week with Cardiology and PCP Plan My Orders - NIRALI UMAÑA NP Procedure Category Date Status Time Discharge DISCHARGE 10/02/20 Transmitted 10:51 Problems, incl. Pt HX: (1) Hypovolemic shock Status: Resolved SEVERITY: UNSPECIFIED SEVERITY COMPLICATION TYPE: UNCOMPLICATED ICD Code: R57.1 - Hypovolemic shock SNOMED: 34152748 Assessment & Plan: - Most likely due to hypoalbuminemia + antihypertensives taken at home - LA nml, bcx NGTD, CT CAP no source. UA nml. COVID negative. No localizing symptoms. - No e/o bleed on CT - Kaly[place]/low temp/low BS could point to adrenal issue --> cortisol slightly high and no e/o adrenal mass, stress dose steroids stopped - Low alb - Subclinical hypothyroid doubt contributing significantly, can f/u o/p -Dr. Santo d/w Dr. Otero 09/28 evening, and he graciously agreed to read this patient's echo. Echo done, awaiting read. -F/U with PCP and Cards as OP (2) Protein-energy malnutrition Status: Acute SEVERITY: SEVERE PERSISTENT COMPLICATION TYPE: W/ ACUTE EXACERBATION ICD Code: E46 - Unspecified protein-calorie malnutrition SNOMED: 389235891 Assessment & Plan: Hypoalbuminemia - profound with alb 1.2, suspect due to chronic malnutrition and chronically poor diet - No symptoms of gastroenteropathy, no hx of known cirrhosis, UA neg for prot - Nutrition consult completed. Patient has HH already in place (3) RUQ pain Status: Chronic SEVERITY: MILD PERSISTENT ICD Code: R10.11 - Right upper quadrant pain SNOMED: 068643184 Assessment & Plan: evaluating Lipase for pancreatitis r/u. will DC s/p results if wnl f/u with PCP and gastroenterology for ruq pain and dysphagia (4) Chronic pancreatitis Status: Chronic SEVERITY: MILD INTERMITTENT COMPLICATION TYPE: UNCOMPLICATED ICD Code: K86.1 - Other chronic pancreatitis SNOMED: 914518784 Assessment & Plan: F/U with PCP and gastroenterology. will initiate pancrealipase 64958 units ac. Lipase diagnostic revealed 75 (5) Hypokalemia Status: Resolved ICD Code: E87.6 - Hypokalemia SNOMED: 76869009 Assessment & Plan: repleted most likely due to poor nutrition (6) Hypertension Status: Chronic SEVERITY: UNSPECIFIED SEVERITY COMPLICATION TYPE: UNCOMPLICATED ICD Code: I10 - Essential (primary) hypertension SNOMED: 92480461 Assessment & Plan: Continue home meds and f/u with cards and PCP (7) Hyperlipidemia Status: Chronic SEVERITY: UNSPECIFIED SEVERITY COMPLICATION TYPE: NOT/APPLICABLE ICD Code: E78.5 - Hyperlipidemia, unspecified SNOMED: 64538426 Assessment & Plan: Continue Statin (8) Depression Status: Chronic SEVERITY: UNSPECIFIED SEVERITY COMPLICATION TYPE: UNCOMPLICATED, NOT/APPLICABLE ICD Code: F32.9 - Major depressive disorder, single episode, unspecified SNOMED: 60463393 Assessment & Plan: Continue antidepressant Problem Qualifiers (1) Protein-energy malnutrition: Protein-calorie malnutrition severity: severe Qualified Codes: E43 - Unsp ecified severe protein-calorie malnutrition (2) Chronic pancreatitis: Pancreatitis type: unspecified pancreatitis type Qualified Codes: K86.1 - Other chronic pancreatitis (3) Hypertension: Hypertension type: unspecified Qualified Codes: I10 - Essential (primary) hypertension (4) Hyperlipidemia: Hyperlipidemia type: unspecified Qualified Codes: E78.5 - Hyperlipidemia, u nspecified (5) Depression: Depression Type: unspecified Qualified Codes: F32.9 - Major depressive disorder, single episode, unspecified NIRALI UMAÑA NP Oct 02, 2020 11:06
--- NOTE | 2020-10-02 11:17 | NUR ---
Sbar report received from nurse Suzanne Acharya RN. patient is in bed aox4 denies pain assessment completed no sign of distress noted. Vitals stable, see flowsheet. safety measures in place will continue to monitor..oneil PETERSEN
[2020-10-02 11:45] VITALS: BP 119/59
[2020-10-02] MEDS ORDERED: LIPA1CAP4 PO (11:48)
[2020-10-02 14:05] VITALS: BP 125/58
--- NOTE | 2020-10-02 15:00 | NUR ---
patient discharged home in stable condition, nurse Sprague discussed discharge instructions patient verbalized understanding. Scripts given in hand, PIV removed no signs of bleeding noted. patient transported off unit by nurse Sprague in stable condition..loan approver RN
[2020-10-02 15:54] VITALS: BP 119/59
== END 2020-10-02 15:00 | disposition home health service (06) | DRG 637 ==
LOC: EDBD 05:03 → ER 05:03 → ICU 15:40 → MS 09-28 23:40
PROVIDERS: ADMIT Family Medicine; ATTEND Internal Medicine
PROC: 02H633Z Insertion of Infusion Device into Right Atrium, Percutaneous Approach (ICD-10-PCS; principal; 2020-09-27)
PROC: B548ZZA Ultrasonography of Superior Vena Cava, Guidance (ICD-10-PCS; 2020-09-27)
DX: E11.649 Type 2 diabetes mellitus with hypoglycemia without coma (principal); R57.1 Hypovolemic shock; J96.01 Acute respiratory failure with hypoxia; E43 Unspecified severe protein-calorie malnutrition; I50.42 Chronic combined systolic (congestive) and diastolic (congestive) heart failure; E11.52 Type 2 diabetes mellitus with diabetic peripheral angiopathy with gangrene; K86.1 Other chronic pancreatitis; Z66 Do not resuscitate; E87.6 Hypokalemia; I11.0 Hypertensive heart disease with heart failure; T68.XXXA Hypothermia, initial encounter; D64.9 Anemia, unspecified; E03.9 Hypothyroidism, unspecified; J44.9 Chronic obstructive pulmonary disease, unspecified; E86.1 Hypovolemia; F17.210 Nicotine dependence, cigarettes, uncomplicated; F32.9 Major depressive disorder, single episode, unspecified; G89.29 Other chronic pain; E11.65 Type 2 diabetes mellitus with hyperglycemia; I25.10 Atherosclerotic heart disease of native coronary artery without angina pectoris; K21.9 Gastro-esophageal reflux disease without esophagitis; G40.909 Epilepsy, unspecified, not intractable, without status epilepticus; R13.10 Dysphagia, unspecified; E78.5 Hyperlipidemia, unspecified; Z20.828 Contact with and (suspected) exposure to other viral communicable diseases; Z90.710 Acquired absence of both cervix and uterus; Z95.5 Presence of coronary angioplasty implant and graft; Z68.23 Body mass index [BMI] 23.0-23.9, adult; Y93.89 Activity, other specified; Y92.89 Other specified places as the place of occurrence of the external cause; Y99.8 Other external cause status; Z88.5 Allergy status to narcotic agent; Z79.82 Long term (current) use of aspirin; Z79.4 Long term (current) use of insulin; Z79.899 Other long term (current) drug therapy; Z90.49 Acquired absence of other specified parts of digestive tract; I69.398 Other sequelae of cerebral infarction
CPT/HCPCS: 36415; 36600; 71045; 71260; 74177; 74246; 80048; 80053; 81003; 82533; 82550; 82553; 82607; 82728; 82746; 82803; 82948; 83540; 83605; 83615; 83690; 83735; 83880; 84100; 84134; 84145; 84436; 84439; 84443; 84484; 85014; 85018; 85025; 85610; 85730; 86140; 87040; 87426; 87635; 92526; 92610; 93005; 93306; 97162; 97166; 99291; C9113; G0378; J0696; J1650; J1720; J1815; J2405; J2930; J3475; J3490; J7030; J7040; J7050; J7611; P9047; Q9967; 97110-GP; 97530-GP; A4216; C1751; J1940; J3480

== ENCOUNTER 2020-10-16 09:11 | Inpatient (IN) | payer MEDICARE, MEDICAID ==
[2020-10-16] VITALS (13 sets, daily range): BP systolic 83–118; BP diastolic 41–69
[~2020-10-16] VITALS: Ht 165.1 cm; Wt 74.8 kg
[~2020-10-16 09:11] MED LIST changes: +Folic Acid PO; +LIPA1CAP4 PO; +MULTIVITAMIN THERAPEUTIC PO; +NICO-449 TD
--- NOTE | 2020-10-16 09:22 | PCM.EKG ---
[facility] Test Date: 2020-10-16 Test Time: 09:20:03 Pat Name: HERBER ZARATE Department: Room: 229 Gender: F Poll Clerk: NISHI : [id number] Requested By: ARNOLD COHEN Order Number: [id number] Reading MD: Arnold Cohen Measurements Intervals [place] Rate: 41 P: 0 IN: 124 QRS: 37 QRSD: 87 T: -31 QT: 615 QTc: 508 Interpretive Statements Sinus bradycardia [place] low voltage, extremity and precordial leads Prolonged QT interval Compared to ECG 09/27/2020 05:35:51 Lower QRS voltage now present Prolonged QT interval now present Electronically Signed On 10-17-2020 1:09:50 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
--- NOTE | 2020-10-16 09:22 | ER.PDOC ---
General Chief Complaint: Requesting Medical Care Stated Complaint: HYPOGLYCEMIA Time seen by MD: 09:09 Source: patient, EMS Exam Limitations: no limitations History of Present Illness Initial Comments Pt lives at senior care, reportedly found without pulse. EMS arrived, found pt not receiving compressions, had pediatric BVM on pt. BG found to be 57 on arr ival, now pt alert, awake, at baseline mental status. NO chest pain, no dyspnea, no complaints. Timing/Duration: 1/2 hour Character of AMS: unresponsive Context: senior care resident Usually: alert but confused Prior symptoms/Treatment: Similar symptoms previous Allergies: Coded Allergies: codeine (Verified Adverse Reaction, Mild, Rash, 03/26/20) Home Meds Active Scripts Lipase/Protease/Amylase (CREON 12,000 UNITS CAPSULE) 1 Each Capsule.dr, 1 EACH PO AC for 30 Days, #90 CAPSULE 0 Refills Prov:NIRALI UMAÑA NP 10/02/20 [Folic Acid] 1 MG TABLET No Conflict Check, 1 MG PO DAILY for 30 Days Prov:NIRALI UMAÑA NP 10/02/20 [Multivitamin,Therapeutic] 1 EACH TABLET No Conflict Check, 1 EACH PO DAILY for 30 Days Prov:NIRALI UMAÑA NP 10/02/20 Nicotine (NICOTINE PATCH) 1 Each Patch.td24, 1 EACH TD DAILY for 30 Days, PATCH Prov:NIRALI UMAÑA NP 10/02/20 Pantoprazole Sodium (PROTONIX) 40 Mg Tablet., 40 MG PO DAILY for 30 Days Prov:TERRENCE TORRES MD 01/30/19 Insulin Glargine,Hum.rec.anlog (LANTUS) 100 Unit/1 Ml Vial, 20 UNIT SQ HS for 14 Days, VIAL Prov:TERRENCE TORRES MD 01/30/19 Aspirin (ASPIRIN EC) 81 Mg Tablet., 81 MG PO DAILY, #30 Prov:TERRENCE TORRES MD 01/30/19 Sacubitril/Valsartan (Entresto 24 mg-26 mg Tablet) 1 Each Tablet, 1 EACH PO BID, #60 TABLET Prov:TERRENCE TORRES MD 01/30/19 Nitroglycerin (NITROSTAT) 0.4 Mg Tab.subl, 0.4 MG SL PRN PRN for CHEST PAIN for 30 Days Prov:TERRENCE TORRES MD 01/30/19 Hydralazine Hcl (HYDRALAZINE HCL) 25 Mg Tablet, 25 MG PO TID, #90 TABLET Prov:TERRENCE TORRES MD 01/30/19 Carvedilol 12.5MG (COREG 12.MG) 12.5 Mg Tablet, 12.5 MG PO BID for 30 Days, TABLET Prov:TERRENCE TORRES MD 01/30/19 Atorvastatin 40MG (LIPITOR 40MG) 40 Mg Tablet, 40 MG PO HS for 30 Days, TABLET Prov:TERRENCE TORRES MD 01/30/19 Ticagrelor (BRILINTA) 90 Mg Tablet, 90 MG PO BID, #30 TABLET Prov:TERRENCE TORRES MD 01/30/19 Levetiracetam (KEPPRA) 500 Mg Tablet, 500 MG PO BID for 30 Days, #60 TABLET 5 Refills Prov:JAIME MATA MD 04/01/17 Reported Medications Umeclidinium Brm/Vilanterol Tr (Anoro Ellipta 62.5-25 Mcg INH) 1 Each Disk.w.dev, 1 EACH IH DAILY24 05/07/18 Albuterol Sulfate (VENTOLIN HFA) 18 Gm Hfa.aer.ad, 18 GM IH Q6HR for SOB 04/16/18 Montelukast Sodium (MONTELUKAST SODIUM) 10 Mg Tablet, 1 TAB PO HS, #30 TAB 5 Refills 04/16/18 Trazodone Hcl (TRAZODONE HCL) 50 Mg Tablet, 1.5 TAB PO HS, #30 TAB 1 Refill 03/29/17 Sertraline Hcl (ZOLOFT) 100 Mg Tablet, 1 TAB PO DAILY, #30 TAB 5 Refills 03/29/17 Past Medical History Medical History: asthma, CVA/TIA/stroke, cardiac problems, congestive heart failure, COPD, diabetes Surgical History: appendectomy, cholecystectomy, hysterectomy Family History Significant Family History: no pertinent family hx Social History Drug Use: none Review of Systems Constitutional: no symptoms reported; denies chills, denies fever Eyes: no symptoms reported Ears, Nose, Mouth, Throat: no symptoms reported Respiratory: no symptoms reported Cardiovascular: no symptoms reported; denies chest pain, denies edema, denies syncope Gastrointestinal: no symptoms reported; denies abdominal pain, denies diarrhea, denies nausea, denies vomiting Genitourinary: no symptoms reported Musculoskeletal: no symptoms reported Skin: no symptoms reported Psychiatric/Neurological: no symptoms reported; denies depressed All Other Systems: Reviewed and Negative Physical Exam General Appearance: alert, no distress HEENT: no apparent trauma, other ([place]) Neuro/Psych: oriented x3 Cranial Nerves: nml as tested Peripheral Exam: motor nml, sensation nml Neck: supple, non-tender Respiratory: no resp distress, other (decreased airmovement b/l, mild) CVS: bradycardia Abdomen: non-tender Skin: no rash, warm/dry, other (scattered ecchymotic lesions on truank and b/l UE and LE) Extremities: non-tender, nml ROM, no pedal edema Results/Orders Results/Orders Orders - ARNOLD COHEN DO Cbc With Auto Diff (10/16/20 09:14) Comprehensive Metabolic Panel (10/16/20 09:14) Creatine Kinase (10/16/20 09:14) Creatine Kinase Mb (10/16/20 09:14) Troponin I (10/16/20 09:14) Probnp B-Type Field Specialist (10/16/20 09:14) PT (10/16/20 09:14) Partial Thromboplastin Time. (10/16/20 09:14) Xr Chest 1v (10/16/20 09:14) Ekg-Routine (10/16/20 09:14) 0.9 % Sodium Chloride (Ns 1000ml) (10/16/20 10:00) Atropine Sulfate (Atropine Sulfate) (10/16/20 09:50) Atropine Sulfate (Atropine Sulfate) (10/16/20 09:53) Covid19 Antigen Gerda Claudia (10/16/20 10:53) Ct Chest Wo Iv Contrast (10/16/20 11:18) Vital Signs Date Time Temp Pulse Resp B/P (MAP) Pulse Ox O2 Delivery O2 Flow Rate FiO2 10/16/20 10:21 97.0 67 18 99/45 (63) 98 Room Air 10/16/20 09:24 97.0 50 18 107/41 (63) 97 Room Air 10/16/20 09:13 97.0 50 18 10/16/20 09:13 97.0 53 18 Administered Medications Medications (Trade) Dose Ordered Sig/Jacques Route PRN Reason Start Time Stop Time Status Last Admin Dose Admin Atropine Sulfate (Atropine Sulfate) 0.5 mg STAT STAT IV 10/16/20 09:53 10/16/20 09:54 DC 10/16/20 09:53 0.5 MG Sodium Chloride 1,000 ml @ 0 mls/hr Q0M ONCE IV 10/16/20 10:00 10/16/20 10:01 DC 10/16/20 09:53 1,000 MLS/HR Laboratory Tests Test 10/16/20 09:29 White Blood Count 4.1 10^3/uL (4.5-11.0) L Red Blood Count 2.88 10^6/uL (4.00-5.20) L Hemoglobin 8.9 g/dL (12.0-15.0) L Hematocrit 26.7 % (36.0-46.0) L Mean Corpuscular Volume 92.7 fL (78-100) Mean Corpuscular Hemoglobin 30.9 pg (26-34) Mean Corpuscular Hemoglobin Concent 33.3 g/dL (33-36.5) Red Cell Distribution Width 16.1 % (11.5-14.5) H Platelet Count 406 10^3/uL (150-400) H Mean Platelet Volume 11.8 fL (7.8-11.0) H Neutrophils (%) (Auto) 71.8 % (41.0-85.0) Lymphocytes (%) (Auto) 18.1 % (24.0-44.0) L Monocytes (%) (Auto) 6.4 % (5.0-12.0) Neutrophils # (Auto) 2.9 10^3/uL (1.8-7.7) Lymphocytes # (Auto) 0.74 10^3/uL1 (1.0-4.8) L Monocytes # (Auto) 0.3 10^3/uL (0.3-0.8) Absolute Immature Granulocyte (auto 0.08 10^3 u/L (0-2) Absolute Eosinophils (auto) 0.0 10^3/uL (0.0-0.2) Immature Granulocytes % 2.00 % (0.00-0.50) H Eosinophils % 0.7 % (0.0-5.0) Basophils % 1.0 % (0.0-0.2) H Basophils # 0.0 10^3/uL (0.0-0.1) Prothrombin Time 12.4 SEC (9.3-11.3) H Prothrombin Time INR (Non-Therap) 1.2 Activated Partial Thromboplast Time 26.7 SEC (24.67-30.72) Sodium Level 143 mmol/L (132-145) Potassium Level 4.4 mmol/L (3.6-5.2) Chloride Level 112.0 mmol/L (96-109) H Carbon Dioxide Level 21.2 mmol/L (20.0-32) Anion Gap 14.2 Blood Urea Nitrogen 10 mg/dL (7-18) Creatinine 1.67 mg/dL (0.59-1.40) H Estimated GFR () 36.8 (>/=60) Est GFR (CKD-EPI)(Non-Afr Martiniquais) 30.4 (>/=60) BUN/Creatinine Ratio 5.0 Glucose Level 184 mg/dL (70-110) H Calcium Level 9.4 mg/dL (8.4-10.5) Total Bilirubin 0.5 mg/dL (0.2-1.0) Aspartate Amino Transferase (AST) 58 U/L (0-35) H Alanine Aminotransferase (ALT) 24 U/L (12-78) Alkaline Phosphatase 95 U/L (50-136) Total Creatine Kinase 36 U/L (26-192) Creatine Kinase MB 1.8 ng/mL (0.5-3.6) Troponin I 0.42 ng/mL (0.00-0.05) H Pro-B-Type Natriuretic Peptide 91808 pg/mL (0-125) H Total Protein 4.9 g/dL (6.4-8.2) L Albumin 2.1 g/dL (3.4-5.0) L Globulin 2.8 Albumin/Globulin Ratio 0.750 Progress Progress Pt with elevated troponin, will need admission. Spoke with Dr. Baires, will need transfer if no cardiology available. No cardiology grinder and honer operator automatic at this time. Spoke with [facility] and [facility], no beds available at this time either location. [id number] - I spoke with Dr. Torres, who reviewed pt's records and has graciously agreed to consult. He spoke with Dr. Call, who will admit pt. Asked for CT chest as she had ground glass infiltrates on previous CXR. PROCEDURE:CHEST 1 VIEW COMPARISON:[facility], CR, XRAY CHEST SINGLE VW, 09/29/2020, 05:39 AM. INDICATIONS:post cpr FINDINGS: LUNGS/PLEURA:Interstitial prominence, partially clearing on the left. Regions of consolidation on the right, with small associated effusion. No pneumothorax VASCULATURE:Normal. Unremarkable pulmonary vasculature. CARDIAC:Normal. No cardiac silhouette abnormality or cardiomegaly. MEDIASTINUM:Normal. No visible mass or adenopathy. BONES:Degenerative changes. No definite rib fracture OTHER:Negative. CONCLUSION:Small right-sided effusion. No pneumothorax identified. Dictated by: Willam Appiah MD on 10/16/2020 at 10:09 AM 0 161 RADIOLOGY REPORT Site Code: PRM Name: HERBER ZARATE Acct: [id number] MR#: [id number] : 1950 [id number] EKG/XRAY/CT/US EKG: rhythm (sinus bradycardia), [place] (nml) EKG Comments: nml axis, prolonged QTc, no ST elev or depress noted ER DEPART Departure Time of Disposition: 11:18 Disposition: 09 ADMITTED INPATIENT Impression: Primary Impression: Elevated troponin I level Additional Impressions: CHF (congestive heart failure) Hypoglycemia Condition: Stable Referrals: PCP,UNKNOWN (PCP) PRIMARY CARE PROVIDER Duration or Time Spent with Pa: 45 Problem Qualifiers Additional Impressions: CHF (congestive heart failure) Heart failure type: unspecified Heart failure chronicity: acute Qualified Codes: I50.9 - Heart failure, unspecified ARNOLD COHEN DO Oct 16, 2020 09:22
[2020-10-16 09:32] LABS: EOSINOPHIL % 0.7 % (0.0-5.0); LYMPHOCYTES # 0.74 10^3/uL1 (1.0-4.8); LYMPHOCYTES % 18.1 % (24.0-44.0); MEAN CORP HGB 30.9 pg (26-34); MONOCYTES # 0.3 10^3/uL (0.3-0.8); MONOCYTES % 6.4 % (5.0-12.0); NEUTROPHIL # 2.9 10^3/uL (1.8-7.7); NEUTROPHILS % 71.8 % (41.0-85.0); PLATELET COUNT 406 10^3/uL (150-400); RED CELL DISTRIBUTION WIDTH 16.1 % (11.5-14.5)
[2020-10-16] MEDS ORDERED: ATROPINE SULFATE ONE (09:50)
[2020-10-16] MEDS ORDERED: ATROPINE SULFATE IV STA (09:53)
[2020-10-16] MEDS ORDERED: NS 1000ML 1,000 ML IV ONE (10:00)
[2020-10-16 10:07] LABS: CALCIUM 9.4 mg/dL (8.4-10.5); CARBON DIOXIDE 21.2 mmol/L (20.0-32)
--- NOTE | 2020-10-16 10:13 | DIREP ---
PROCEDURE:CHEST 1 VIEW COMPARISON:[facility], CR, XRAY CHEST SINGLE VW, 09/29/2020, 05:39 AM. INDICATIONS:post cpr FINDINGS: LUNGS/PLEURA:Interstitial prominence, partially clearing on the left. Regions of consolidation on the right, with small associated effusion. No pneumothorax VASCULATURE:Normal. Unremarkable pulmonary vasculature. CARDIAC:Normal. No cardiac silhouette abnormality or cardiomegaly. MEDIASTINUM:Normal. No visible mass or adenopathy. BONES:Degenerative changes. No definite rib fracture OTHER:Negative. CONCLUSION:Small right-sided effusion. No pneumothorax identified. Dictated by: Willam Appiah MD on 10/16/2020 at 10:09 AM
--- NOTE | 2020-10-16 11:50 | NUR ---
CT PATIENT TAKEN TO CT WITH KHANH. VITALS STABLE.
--- NOTE | 2020-10-16 12:12 | NUR ---
PATIENT RETURNED FROM CT PATIENT RETURNED FROM CT, VITALS STABLE.
--- NOTE | 2020-10-16 12:53 | DIREP ---
PROCEDURE:CT CHEST W/O COMPARISON:[facility], CT, CT CHEST ABDOMEN PELVIS WITH CONTR, 09/27/2020, 11:48 PM. [facility], CR, XRAY CHEST SINGLE VW, 10/16/2020, 09:40 AM. INDICATIONS:effusion, prior opacities TECHNIQUE:Helical sections through the chest were performed from the lung apices through the diaphragms without IV contrast. Sagittal and coronal reconstructions are obtained from source images. FINDINGS: LUNGS:Multifocal ground-glass opacities noted throughout the lungs some peripherally oriented with interlobular lines. New small bilateral pleural effusions. PLEURA:Small bilateral pleural effusions. CARDIAC:Normal cardiac size. Coronary arterial calcifications. Aortic valvular calcifications. No pericardial effusion. MEDIASTINUM:Normal. No mass or adenopathy. BRENT:Normal. No mass or adenopathy. AORTA:Aortic and major branch atherosclerotic calcifications. CHEST WALL:Increase chest wall edema since prior exam. LIMITED ABDOMEN:Severe hepatic steatosis. BONES:Normal. No bony lesion or fracture. OTHER:Negative. CONCLUSION: 1. New since prior CT are patchy ground-glass opacities some peripherally orientated. Findings can be seen with COVID-19 pneumonia but are altogether nonspecific. 2. New small bilateral pleural effusions. 3. Increase chest wall edema. 4. Severe hepatic steatosis. Dictated by: Sergio Mcgowan M.D. on 10/16/2020 at 12:47 PM
--- NOTE | 2020-10-16 13:30 | NUR ---
CT RESULTS/COVID PATIENT WAS TESTED FOR COVID THE TRANSFER PROCESS WAS STARTED TO ENSURE PATIENT WAS ABLE TO BE TRANSFERRED. AFTER DR. TORRES WAS CONSULTED, NEW ORDERS WERE RECEIVED FOR CT CHEST. AFTER CT CHEST RESULTS WERE RELAYED TO DR. WILLOUGHBY, DR. WILLOUGHBY VERBALIZED THAT THE PATIENT NEEDS TO BE PUT ON A CLEAN UNIT BECAUSE THE CT CHEST DOES NOT CORROLATE WITH NEGATIVE RAPID TEST AND PATIENT BEING ASYMPTOMATIC FOR COVID. ALL THIS WAS RELAYED IN REPORT TO OLYA PETERSEN.
[2020-10-16] MEDS ORDERED: DEXTROSE 50%-WATER SYRINGE IV ONE ×2 (17:42→20:16)
[2020-10-16] MEDS ORDERED: DEXTROSE 50%-WATER SYRINGE IV STA ×3 (17:55→21:51)
[2020-10-16] MEDS ORDERED: NITROSTAT SL PRN (18:30)
--- NOTE | 2020-10-16 19:32 | PCM.HP ---
HISTORY & PHYSICAL HISTORY & PHYSICAL DATE: October 16, 2020 Patient is admitted to the medical floor as an inpatient ADMITTING DIAGNOSES: Syncope with bradycardia and hypoglycemia CHIEF COMPLAINT: She was found down HISTORY OF PRESENT ILLNESS: 70-year-old female who resides at the local [place] [facility] and was found to be unresponsive. It is unknown at this point whether or not she had CPR at the [place] [facility] but when EMS arrived there was no CPR given at that time. An Accu-Chek revealed a blood sugar of 50 and she was given an amp of D50 and her mental status did improve. By the time she came to the ER she was awake and alert. She denies any chest pain or shortness of breath. She denies any fever. She states that she was doing okay and the next thing she remembers is waking up with people around her. She was recently hospitalized about 2-1/2 weeks ago for a low blood sugar and altered mental status and she was treated and released to the [place] [facility]. It was noted in the ER that her heart rate was down to 40 and atropine was given and her heart rate went up to 60. Her blood sugars have been steadily going down since the ER at this time I am giving her another amp of D50. PAST MEDICAL HISTORY: COPD, hypertension, coronary artery disease, history of CVA/TIA, history of congestive heart failure, type 2 diabetes mellitus PAST SURGICAL HISTORY: Appendectomy, cholecystectomy, hysterectomy, cardiac cath with stent placement last year ALLERGIES: Codeine MEDICATIONS: I have reviewed her [place] [facility] medication list SOCIAL HISTORY: History of tobacco use, no alcohol use, no drugs FAMILY HISTORY: Noncontributory for this admission PHYSICAL EXAMINATION: VITAL SIGNS: Temperature 97.0, pulse 98 however she came in with a pulse rate of 50 and atropine after atropine was given her heart rate went up to 60, respirations 18, blood pressure 107/41, O2 sat 97% HEENT: Oropharynx is clear, moist mucous membranes, no maxillary sinus tenderness NECK: Supple, no JVD noted HEART: S1 and S2 audible, heart rate on my exam was about 64, 2 out of 6 systolic murmur in the anterior chest noted LUNGS: CTA bilaterally ABDOMEN: Bowel sounds present, soft abdomen EXTREMITIES: Varicose veins noted, 2+ distal pulses noted, no pitting edema noted LABORATORY DATA: WBC 4.1, hemoglobin 8.9, hematocrit 26.7, MCV 93, platelet count 406, PT 12.4, INR 1.2, PTT 26.7, rapid Covid test negative, sodium 143, potassium 4.4, BUN 10, creatinine 1.67, glucose 184, AST 58, troponin I 0.42, proBNP 27,669, albumin 2.1 Chest x-ray: Right pleural effusion noted that is small, no acute abnormalities noted CT of the chest: Scarring noted in the basilar regions with some small bilateral pleural effusions noted; barrel chest noted; hepatic steatosis noted ASSESSMENT: We have this elderly female from the [place] [facility] with altered mental status and hypoglycemia and bradycardia PLAN: I will admit her to telemetry and follow her heart rates. She is on a beta-kevin and I will hold that for now. I will consult cardiology. I will follow her Accu-Cheks and see how her p.o. intake is. I will hold her Lantus for the time being. JAYLEN WILLOUGHBY MD Oct 16, 2020 19:31
--- NOTE | 2020-10-16 20:00 | NUR ---
ICU STATUS Pt has had decreased blood glucose since the beginning of shift. Bedside blood glucose was 44mg/dL Dr. Call was contacted and gave a verbal order for 1 AMP of D50 STAT was given to Alisha Pantoja Rn. D50 was administered and we tried to have the Pt drink a Boost and eat some peanut butter crackers to try to keep the BS from bottoming out again. Pt started drinking Boost and almost immediately threw it back up and stated "This is why I haven't been eating, because I can't eat anything without throwing it back up." Pt has also been experiencing diarrhea since admission, and her chest CT also showed glass opacities in the lungs. I checked to see if the Pt had been tested for Covid-19 and she had been rapid tested and resulted negative, but there was not another swab done to send to the state per hospital policy. Approx. 1 hour later Pt's BP was 83/46 and was immediately rechecked and was 94/73. Dr. Call was contacted again to update him on the low BP and was asked if there was a possibility that she could have Covid-19 because of all of the symptoms she was exhibiting and was told that she was rapid tested and was definitely not positive. At this time we were told to change her status to ICU after having already been told that we don't have any available ICU nurses by myself and the Otolaryngology Physician Evita.
[2020-10-16] MEDS ORDERED: ASPIRIN ONE (20:21)
[2020-10-16] MEDS ORDERED: ASPIRIN EC PO STA (20:23)
[2020-10-16] MEDS: BRILINTA PO SCH (20:59)
[2020-10-16] MEDS: LIPITOR PO SCH (21:01)
[2020-10-16] MEDS: DESYREL PO SCH (21:01)
[2020-10-16] MEDS: KEPPRA PO SCH (21:01)
[2020-10-16] MEDS: SINGULAIR PO SCH (21:01)
[2020-10-16] MEDS: ZOLOFT PO SCH (21:02)
--- NOTE | 2020-10-16 21:04 | PCM.EKG ---
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
[2020-10-16] MEDS ORDERED: NS 1000ML 1,000 ML ONE (23:06)
[2020-10-16] MEDS ORDERED: VENTOLIN HFA IH ONE (23:22)
[2020-10-16] MEDS: VENTOLIN HFA IH PRN (23:30)
[2020-10-16] MEDS ORDERED: NS 500ML 500 ML IV STA (23:31)
[2020-10-17] VITALS (13 sets, daily range): BP systolic 92–123; BP diastolic 44–92
[2020-10-17] MEDS: ZOFRAN IV PRN (01:10)
[2020-10-17] MEDS ORDERED: DEXTROSE 50%-WATER SYRINGE IV PRN (02:00)
[2020-10-17] MEDS ORDERED: D5W-1/2NS 1000ML 1,000 ML ONE (02:05)
[2020-10-17] MEDS: D5W-1/2NS 1000ML 1,000 ML IV SCH ×2 (02:30→18:59)
[2020-10-17] MEDS ORDERED: D5W-1/2NS 1000ML 1,000 ML IV ONE (02:30)
[2020-10-17] MEDS: VENTOLIN HFA IH PRN ×2 (08:28→20:15)
--- NOTE | 2020-10-17 09:04 | PRM.PN ---
Subjective Subjective Date: Oct 17, 2020 Time: 08:50 Subjective Pt has been having N/V since last night after drinking a boost can; denies any CP Patient History: Unknown 33 MOTHER 34 FATHER VTE VTE Risk Total Score: 2 VTE Risk Score VTE Risk: Score 0-1 = Low Risk (Aggressive mobilization; early ambulation; no VTE prophylaxis required) Score 2: Moderate Risk (Intermittent/Pneumatic Compression Device OR Lovenox/Heparin/Coumadin) Score 3-4: High Risk (Intermittent/Pneumatic Compression Device AND Lovenox/Heparin/Coumadin) Score > or =5: Highest Risk (Intermittent/Pneumatic Compression Device AND Lovenox/Heparin/Coumadin) Antico:Hep/LMWH/Coum/Xarelto: Yes Mechanical device ordered: Yes Reasons not ordering prophylax: At risk for falls Review of Systems Constitutional: Weakness, Malaise; No: Fever, Chills, Sweats Eyes: No: Pain, Vision change, Conjunctivae inflammation ENT: No: Ear pain, Ear discharge, Nose pain Respiratory: No: Cough, Dry, Shortness of breath Cardiovascular: No: Chest Pain, Palpitations, Orthopnea Gastrointestinal: Nausea, Vomiting; No: Diarrhea, Constipation Genitourinary: No Dysuria, No Frequency, No Incontinence, No Hematuria Musculoskeletal: No: neck pain, shoulder pain, arm pain, back pain Skin: No: Lesions, Jaundice, Bruising Neurological: No: Incoordination, Change in speech, Confusion, Seizures Allergies: Coded Allergies: codeine (Verified Adverse Reaction, Mild, Rash, 03/26/20) Scheduled Albuterol Sulfate (Ventolin Hfa), 18 GM IH Q6HR, (Reported) Aspirin (Aspirin Ec), 81 MG PO DAILY Atorvastatin 40MG (Lipitor 40MG), 40 MG PO HS Carvedilol 12.5MG (Coreg 12.MG), 12.5 MG PO BID Hydralazine Hcl (Hydralazine Hcl), 25 MG PO TID Insulin Glargine,Hum.rec.anlog (Lantus), 20 UNIT SQ HS Levetiracetam (Keppra), 500 MG PO BID Lipase/Protease/Amylase (Creon Dr 12,000 Units Capsule), 1 EACH PO AC Montelukast Sodium (Montelukast Sodium), 1 TAB PO HS, (Reported) Nicotine (Nicotine Patch), 1 EACH TD DAILY Pantoprazole Sodium (Protonix), 40 MG PO DAILY Sacubitril/Valsartan (Entresto 24 mg-26 mg Tablet), 1 EACH PO BID Sertraline Hcl (Zoloft), 1 TAB PO DAILY, (Reported) Ticagrelor (Brilinta), 90 MG PO BID Trazodone Hcl (Trazodone Hcl), 1.5 TAB PO HS, (Reported) Umeclidinium Brm/Vilanterol Tr (Anoro Ellipta 62.5-25 Mcg INH), 1 EACH IH DAILY24, (Reported) [Folic Acid], 1 MG PO DAILY [Multivitamin,Therapeutic], 1 EACH PO DAILY Scheduled PRN Nitroglycerin (Nitrostat), 0.4 MG SL PRN PRN for CHEST PAIN Objective Vitals and I/O Vital Sign - Last 24 Hours 10/16/20 10/16/20 10/16/20 10/16/20 09:13 09:13 09:24 10:21 Temp 97.0 97.0 97.0 97.0 Pulse 53 50 50 67 Resp 18 18 18 18 B/P (MAP) 107/41 (63) 99/45 (63) Pulse Ox 97 98 O2 Delivery Room Air Room Air 10/16/20 10/16/20 10/16/20 10/16/20 11:25 12:15 13:10 13:55 Temp 98.2 Pulse 59 64 67 66 Resp 18 18 18 18 B/P (MAP) 110/47 (68) 118/46 (70) 105/47 (66) 108/49 (68) Pulse Ox 99 99 99 99 O2 Delivery Room Air Room Air Room Air Room Air 10/16/20 10/16/20 10/16/20 10/16/20 16:15 16:38 17:48 18:36 Temp 98.2 97.7 Pulse 66 67 Resp 18 18 18 B/P (MAP) 108/49 (68) 115/52 (73) Pulse Ox 99 99 O2 Delivery Room Air Room Air Room Air 10/16/20 10/16/20 10/16/20 10/16/20 21:00 21:03 22:00 23:00 Temp 98.0 Pulse 58 60 66 56 Resp 18 20 18 16 B/P (MAP) 94/54 (67) 92/45 (61) 100/69 (79) 83/46 (58) Pulse Ox 98 97 99 98 O2 Delivery Room Air Room Air 10/16/20 10/17/20 10/17/20 10/17/20 23:30 00:15 00:48 01:17 Temp 98.4 Pulse 64 51 62 61 Resp 18 16 18 18 B/P (MAP) 112/51 (71) 105/50 (68) 122/72 (89) Pulse Ox 98 99 94 97 10/17/20 10/17/20 10/17/20 10/17/20 02:15 03:00 04:30 05:20 Temp 97.9 Pulse 58 63 79 72 Resp 20 16 18 16 B/P (MAP) 114/60 (78) 111/53 (72) 115/92 (100) 114/57 (76) Pulse Ox 98 96 95 97 O2 Delivery Room Air Room Air 10/17/20 10/17/20 10/17/20 10/17/20 06:00 07:31 07:32 08:26 Temp 97.6 Pulse 56 64 67 Resp 18 18 18 B/P (MAP) 92/44 (60) 104/51 (68) Pulse Ox 98 98 96 O2 Delivery Room Air Intake and Output 10/17/20 06:59 Intake Total 480 ml Output Total 250 ml Balance 230 ml General: Alert, Oriented X3, Cooperative, No acute distress HEENT: Atraumatic, PERRLA, EOMI, Mucous membr. moist/pink Neck: Supple Lungs: Clear to auscultation, Normal air movement Heart: Regular rate, Normal S1, Normal S2 Abdomen: Normal bowel sounds, Soft, No tenderness Extremities: No clubbing, No cyanosis, No edema, Normal pulses, No tenderness/swelling Skin: No rashes, No significant lesion Neuro: Normal speech Psych/Mental Status: Mental status NL, Mood NL All Results(Lab/Rad) Laboratory Tests Test 10/16/20 09:29 10/16/20 10:52 10/16/20 14:04 10/16/20 18:00 White Blood Count 4.1 10^3/uL Red Blood Count 2.88 10^6/uL Hemoglobin 8.9 g/dL Hematocrit 26.7 % Mean Corpuscular Volume 92.7 fL Mean Corpuscular Hemoglobin 30.9 pg Mean Corpuscular Hemoglobin Concent 33.3 g/dL Red Cell Distribution Width 16.1 % Platelet Count 406 10^3/uL Mean Platelet Volume 11.8 fL Neutrophils (%) (Auto) 71.8 % Lymphocytes (%) (Auto) 18.1 % Monocytes (%) (Auto) 6.4 % Neutrophils # (Auto) 2.9 10^3/uL Lymphocytes # (Auto) 0.74 10^3/uL1 Monocytes # (Auto) 0.3 10^3/uL Absolute Immature Granulocyte (auto 0.08 10^3 u/L Absolute Eosinophils (auto) 0.0 10^3/uL Immature Granulocytes % 2.00 % Eosinophils % 0.7 % Basophils % 1.0 % Basophils # 0.0 10^3/uL Prothrombin Time 12.4 SEC Prothrombin Time INR (Non-Therap) 1.2 Activated Partial Thromboplast Time 26.7 SEC Sodium Level 143 mmol/L Potassium Level 4.4 mmol/L Chloride Level 112.0 mmol/L Carbon Dioxide Level 21.2 mmol/L Anion Gap 14.2 Blood Urea Nitrogen 10 mg/dL Creatinine 1.67 mg/dL Estimated GFR () 36.8 Est GFR (CKD-EPI)(Non-Afr Mauritian) 30.4 BUN/Creatinine Ratio 5.0 Glucose Level 184 mg/dL Calcium Level 9.4 mg/dL Total Bilirubin 0.5 mg/dL Aspartate Amino Transf (AST/SGOT) 58 U/L Alanine Aminotransferase (ALT/SGPT) 24 U/L Alkaline Phosphatase 95 U/L Total Creatine Kinase 36 U/L Creatine Kinase MB 1.8 ng/mL Troponin I 0.42 ng/mL Pro-B-Type Natriuretic Peptide 52927 pg/mL Total Protein 4.9 g/dL Albumin 2.1 g/dL Globulin 2.8 Albumin/Globulin Ratio 0.750 SARS-CoV-2 Antigen (Rapid) NEGATIVE Bedside Glucose 81 144 Test 10/16/20 18:40 10/16/20 20:30 10/16/20 22:03 10/16/20 23:04 Troponin I 1.34 ng/mL Glucose Level 47 mg/dL Bedside Glucose 125 127 Test 10/17/20 00:36 10/17/20 00:46 10/17/20 01:53 10/17/20 03:03 Bedside Glucose 97 68 185 Absolute Reticulocyte Count 0.0292 10^6uL Percent Reticulocyte Count 1.21 % Troponin I 1.18 ng/mL Test 10/17/20 04:40 10/17/20 05:46 10/17/20 06:41 10/17/20 07:27 Bedside Glucose 135 131 111 110 Test 10/17/20 08:39 Bedside Glucose 100 Current Medications Medications (Trade) Dose Ordered Sig/Jacques Route PRN Reason Start Time Stop Time Status Last Admin Dose Admin Sodium Chloride 1,000 ml @ 0 mls/hr Q0M ONCE IV 10/16/20 10:00 10/16/20 10:01 DC 10/16/20 09:53 Atropine Sulfate (Atropine Sulfate) 1 mg STK-MED ONCE .ROUTE 10/16/20 09:50 10/16/20 09:53 DC Atropine Sulfate (Atropine Sulfate) 0.5 mg STAT STAT IV 10/16/20 09:53 10/16/20 09:54 DC 10/16/20 09:53 Dextrose (Dextrose 50%-Water Syringe) 50 ml STK-MED ONCE IV 10/16/20 17:42 10/16/20 17:44 DC Dextrose (Dextrose 50%-Water Syringe) 25 ml STAT STAT IV 10/16/20 17:55 10/16/20 18:14 DC 10/16/20 18:01 Albuterol Sulfate (Ventolin Hfa) 1 inh Q6HR PRN IH SHORTNESS OF BREATH 10/16/20 18:30 11/15/20 18:29 10/17/20 08:28 Aspirin (Aspirin Ec) 81 mg DAILY PO 10/17/20 09:00 11/16/20 08:59 Atorvastatin Calcium (Lipitor) 40 mg HS PO 10/16/20 21:00 11/15/20 20:59 10/16/20 21:01 Levetiracetam (Keppra) 500 mg BID PO 10/16/20 21:00 11/15/20 20:59 10/16/20 21:01 Montelukast Sodium (Singulair) 10 mg HS PO 10/16/20 21:00 11/15/20 20:59 10/16/20 21:01 Nicotine (Nicotine 14mg Patch) 1 each DAILY TD 10/17/20 09:00 11/16/20 08:59 Nitroglycerin (Nitrostat) 0.4 mg PRN PRN SL CHEST PAIN 10/16/20 18:30 11/15/20 18:29 Pantoprazole Sodium (Protonix) 40 mg DAILY PO 10/17/20 09:00 11/16/20 08:59 Ticagrelor (Brilinta) 90 mg BID PO 10/16/20 21:00 11/15/20 20:59 10/16/20 20:59 Trazodone HCl (Desyrel) 75 mg HS PO 10/16/20 21:00 11/15/20 20:59 10/16/20 21:01 Sertraline HCl (Zoloft) 100 mg HS PO 10/16/20 21:00 11/15/20 20:59 10/16/20 21:02 Folic Acid (Folic Acid) 1 mg DAILY PO 10/17/20 09:00 11/16/20 08:59 Dextrose (Dextrose 50%-Water Syringe) 50 ml STK-MED ONCE IV 10/16/20 20:16 10/16/20 20:18 DC Aspirin (Aspirin) 325 mg STK-MED ONCE .ROUTE 10/16/20 20:21 10/16/20 20:23 DC Aspirin (Aspirin Ec) 325 mg OT STAT PO 10/16/20 20:23 10/16/20 21:02 DC 10/16/20 20:59 Dextrose (Dextrose 50%-Water Syringe) 25 ml STAT STAT IV 10/16/20 20:50 10/16/20 21:36 DC Dextrose (Dextrose 50%-Water Syringe) 50 ml STAT STAT IV 10/16/20 21:51 10/16/20 21:56 DC 10/16/20 20:50 Sodium Chloride 1,000 ml @ ud STK-MED ONCE .ROUTE 10/16/20 23:06 10/16/20 23:08 DC Albuterol Sulfate (Ventolin Hfa) 2 inh STK-MED ONCE IH 10/16/20 23:22 10/16/20 23:24 DC Sodium Chloride 500 ml @ 500 mls/hr Q1H STAT IV 10/16/20 23:31 10/17/20 00:30 DC 10/16/20 23:35 Ondansetron HCl (Zofran) 4 mg OT PRN IV NAUSEA / VOMITING 10/17/20 01:30 11/16/20 01:29 10/17/20 01:10 Dextrose (Dextrose 50%-Water Syringe) 50 ml STAT PRN IV HYPOGLYCEMIA 10/17/20 02:00 11/16/20 01:59 10/17/20 02:16 Course Sepsis Screening Results: Posi: NEGATIVE Sepsis Qualifier/Stage: NO DEFINITE RISK Duration or Total Time Spent w: 45 Vitals & review Data Vital Sign - Last 24 Hours 10/16/20 10/16/20 10/16/20 10/16/20 09:13 09:13 09:24 10:21 Temp 97.0 97.0 97.0 97.0 Pulse 53 50 50 67 Resp 18 18 18 18 B/P (MAP) 107/41 (63) 99/45 (63) Pulse Ox 97 98 O2 Delivery Room Air Room Air 10/16/20 10/16/20 10/16/20 10/16/20 11:25 12:15 13:10 13:55 Temp 98.2 Pulse 59 64 67 66 Resp 18 18 18 18 B/P (MAP) 110/47 (68) 118/46 (70) 105/47 (66) 108/49 (68) Pulse Ox 99 99 99 99 O2 Delivery Room Air Room Air Room Air Room Air 10/16/20 10/16/20 10/16/20 10/16/20 16:15 16:38 17:48 18:36 Temp 98.2 97.7 Pulse 66 67 Resp 18 18 18 B/P (MAP) 108/49 (68) 115/52 (73) Pulse Ox 99 99 O2 Delivery Room Air Room Air Room Air 10/16/20 10/16/20 10/16/20 10/16/20 21:00 21:03 22:00 23:00 Temp 98.0 Pulse 58 60 66 56 Resp 18 20 18 16 B/P (MAP) 94/54 (67) 92/45 (61) 100/69 (79) 83/46 (58) Pulse Ox 98 97 99 98 O2 Delivery Room Air Room Air 10/16/20 10/17/20 10/17/20 10/17/20 23:30 00:15 00:48 01:17 Temp 98.4 Pulse 64 51 62 61 Resp 18 16 18 18 B/P (MAP) 112/51 (71) 105/50 (68) 122/72 (89) Pulse Ox 98 99 94 97 10/17/20 10/17/20 10/17/20 10/17/20 02:15 03:00 04:30 05:20 Temp 97.9 Pulse 58 63 79 72 Resp 20 16 18 16 B/P (MAP) 114/60 (78) 111/53 (72) 115/92 (100) 114/57 (76) Pulse Ox 98 96 95 97 O2 Delivery Room Air Room Air 10/17/20 10/17/20 10/17/20 10/17/20 06:00 07:31 07:32 08:26 Temp 97.6 Pulse 56 64 67 Resp 18 18 18 B/P (MAP) 92/44 (60) 104/51 (68) Pulse Ox 98 98 96 O2 Delivery Room Air Intake and Output 10/17/20 06:59 Intake Total 480 ml Output Total 250 ml Balance 230 ml Laboratory Tests Test 10/16/20 09:29 10/16/20 10:52 10/16/20 14:04 10/16/20 18:00 White Blood Count 4.1 10^3/uL Red Blood Count 2.88 10^6/uL Hemoglobin 8.9 g/dL Hematocrit 26.7 % Mean Corpuscular Volume 92.7 fL Mean Corpuscular Hemoglobin 30.9 pg Mean Corpuscular Hemoglobin Concent 33.3 g/dL Red Cell Distribution Width 16.1 % Platelet Count 406 10^3/uL Mean Platelet Volume 11.8 fL Neutrophils (%) (Auto) 71.8 % Lymphocytes (%) (Auto) 18.1 % Monocytes (%) (Auto) 6.4 % Neutrophils # (Auto) 2.9 10^3/uL Lymphocytes # (Auto) 0.74 10^3/uL1 Monocytes # (Auto) 0.3 10^3/uL Absolute Immature Granulocyte (auto 0.08 10^3 u/L Absolute Eosinophils (auto) 0.0 10^3/uL Immature Granulocytes % 2.00 % Eosinophils % 0.7 % Basophils % 1.0 % Basophils # 0.0 10^3/uL Prothrombin Time 12.4 SEC Prothrombin Time INR (Non-Therap) 1.2 Activated Partial Thromboplast Time 26.7 SEC Sodium Level 143 mmol/L Potassium Level 4.4 mmol/L Chloride Level 112.0 mmol/L Carbon Dioxide Level 21.2 mmol/L Anion Gap 14.2 Blood Urea Nitrogen 10 mg/dL Creatinine 1.67 mg/dL Estimated GFR () 36.8 Est GFR (CKD-EPI)(Non-Afr Mauritian) 30.4 BUN/Creatinine Ratio 5.0 Glucose Level 184 mg/dL Calcium Level 9.4 mg/dL Total Bilirubin 0.5 mg/dL Aspartate Amino Transf (AST/SGOT) 58 U/L Alanine Aminotransferase (ALT/SGPT) 24 U/L Alkaline Phosphatase 95 U/L Total Creatine Kinase 36 U/L Creatine Kinase MB 1.8 ng/mL Troponin I 0.42 ng/mL Pro-B-Type Natriuretic Peptide 54093 pg/mL Total Protein 4.9 g/dL Albumin 2.1 g/dL Globulin 2.8 Albumin/Globulin Ratio 0.750 SARS-CoV-2 Antigen (Rapid) NEGATIVE Bedside Glucose 81 144 Test 10/16/20 18:40 10/16/20 20:30 10/16/20 22:03 10/16/20 23:04 Troponin I 1.34 ng/mL Glucose Level 47 mg/dL Bedside Glucose 125 127 Test 10/17/20 00:36 10/17/20 00:46 10/17/20 01:53 10/17/20 03:03 Bedside Glucose 97 68 185 Absolute Reticulocyte Count 0.0292 10^6uL Percent Reticulocyte Count 1.21 % Troponin I 1.18 ng/mL Test 10/17/20 04:40 10/17/20 05:46 10/17/20 06:41 10/17/20 07:27 Bedside Glucose 135 131 111 110 Test 10/17/20 08:39 Bedside Glucose 100 Current Medications Medications (Trade) Dose Ordered Sig/Jacques PRN Reason Start Time Stop Time Status Last Admin Albuterol Sulfate (Ventolin Hfa) 1 inh Q6HR PRN SHORTNESS OF BREATH 10/16/20 18:30 11/15/20 18:29 10/17/20 08:28 Aspirin (Aspirin Ec) 81 mg DAILY 10/17/20 09:00 11/16/20 08:59 Atorvastatin Calcium (Lipitor) 40 mg HS 10/16/20 21:00 11/15/20 20:59 10/16/20 21:01 Dextrose (Dextrose 50%-Water Syringe) 50 ml STAT PRN HYPOGLYCEMIA 10/17/20 02:00 11/16/20 01:59 10/17/20 02:16 Folic Acid (Folic Acid) 1 mg DAILY 10/17/20 09:00 11/16/20 08:59 Levetiracetam (Keppra) 500 mg BID 10/16/20 21:00 11/15/20 20:59 10/16/20 21:01 Montelukast Sodium (Singulair) 10 mg HS 10/16/20 21:00 11/15/20 20:59 10/16/20 21:01 Nicotine (Nicotine 14mg Patch) 1 each DAILY 10/17/20 09:00 11/16/20 08:59 Nitroglycerin (Nitrostat) 0.4 mg PRN PRN CHEST PAIN 10/16/20 18:30 11/15/20 18:29 Ondansetron HCl (Zofran) 4 mg OT PRN NAUSEA / VOMITING 10/17/20 01:30 11/16/20 01:29 10/17/20 01:10 Pantoprazole Sodium (Protonix) 40 mg DAILY 10/17/20 09:00 11/16/20 08:59 Sertraline HCl (Zoloft) 100 mg HS 10/16/20 21:00 11/15/20 20:59 10/16/20 21:02 Ticagrelor (Brilinta) 90 mg BID 10/16/20 21:00 11/15/20 20:59 10/16/20 20:59 Trazodone HCl (Desyrel) 75 mg HS 10/16/20 21:00 11/15/20 20:59 10/16/20 21:01 Sepsis Infection Criteria Pres: None LEVEL 1 SEPSIS INFECTION CRITE: None/Not assessed LEVEL 2-SIRS (LIST ALL THAT AP: None/Not assessed Cardiovascular Evidence: Not Assessed or None Hematologic Evidence: None/Not assessed Hepatic Evidence: None/Not assessed Metabolic Evidence: None/Not assessed Neurological Evidence: None/Not assessed Respiratory Evidence: None/Not assessed Renal Evidence: None/Not assessed O2 Sat by Pulse Oximetry: 96 Assessment/Plan Assessment/Plan Assessment/Plan 70 yo female with hypoglycemia, resolved AMS, resolved bradycardia, elevated troponin, N/V - on D5 IVF with stable sugars so far; pt has not been eating well and has been on her lantus - HRs in the 60s and 70s now - cardiology on board; ECHO pending - check abd xrays for her N/V JAYLEN WILLOUGHBY MD Oct 17, 2020 09:04
--- NOTE | 2020-10-17 10:28 | DIREP ---
PROCEDURE:XR ABDOMEN 2 VIEWS COMPARISON:[facility], CR, XRAY ABDOMEN 2VW, 07/16/2018, 12:28 PM. INDICATIONS:vomiting TECHNIQUE:Flat and upright views of the abdomen are provided. FINDINGS: BOWEL GAS PATTERN:Dilated loops of small bowel identified in the right abdomen and right pelvis worrisome for partial obstruction or severe ileus. The diameter of the loops of small bowel, is approximately 3.3 cm which is abnormal. No colonic distention is seen. Patchy opacities in the left lung base with a small left-sided effusion. CALCIFICATIONS:None significant. No calcified appendicolith is seen. Status post cholecystectomy. LUNG BASES:Clear. BONES:Normal. OTHER:No additional findings. Vascular calcifications in the aorta and in the common iliac arteries. CONCLUSION:Distended loops of small bowel in the right lower abdomen and in the pelvis, worrisome for partial obstruction or ileus. Suggest a follow-up CT of the abdomen and pelvis. Patchy infiltrates in the left lung base with a small left-sided effusion. Dictated by: Sabino Bright MD on 10/17/2020 at 10:25 AM
[2020-10-17] MEDS: KEPPRA PO SCH ×2 (10:35→20:16)
[2020-10-17] MEDS: ASPIRIN EC PO SCH (10:35)
[2020-10-17] MEDS: FOLIC ACID PO SCH (10:35)
[2020-10-17] MEDS: THERA PO SCH (10:35)
[2020-10-17] MEDS: PROTONIX PO SCH (10:35)
[2020-10-17] MEDS: NICOTINE 14MG PATCH TD SCH (10:37)
[2020-10-17] MEDS: BRILINTA PO SCH ×2 (10:48→20:16)
--- NOTE | 2020-10-17 11:01 | DIET.OP ---
Nutrition Asmt/Malnutrit 2-17 Actual Date of Review: Oct 17, 2020 Nutritional Screening: Malnutr/Diet Consult Diagnosis: hypovolemia shock, hypoglycemia Pertinent Medical Hx/Surgical: HTN, hyperlipidemia, COPD, GERD, CVA with residual speech difficulty, CHF, DM, RA Subjective Information: telehealth consult for malnutrition. Need current accurate weight from bedscale weight history: 165 10/16/2020 stated by patient 143 10/02/2020 bedscale on last admission. Admitted for hypoglycemia needing multiple amps of d50 to raise, blood sugars are beginning to remain stable at this time. She is a resident of a senior care. Abdominal Xray showed possible small bowel obstruction or ileus. Per nursing and MD pt not been eating because they throw up everything. Was not able to tolerate a boost last night Current Diet Order/Nutrition S: clear liquid Patient /S.O: Not Indicated Pertinent Meds atorvastatin, keppra, d50, folic acid Pertinent Labs Laboratory Tests 10/16/20 14:04: Bedside Glucose 81 10/16/20 18:00: Bedside Glucose 144H 10/16/20 18:40: Troponin I 1.34*H 10/16/20 20:30: Glucose Level 47*L 10/16/20 22:03: Bedside Glucose 125H 10/16/20 23:04: Bedside Glucose 127H 10/17/20 00:36: Bedside Glucose 97 10/17/20 00:46: Absolute Reticulocyte Count 0.0292, Percent Reticulocyte Count 1.21, Troponin I 1.18*H 10/17/20 01:53: Bedside Glucose 68L 10/17/20 03:03: Bedside Glucose 185H 10/17/20 04:40: Bedside Glucose 135H 10/17/20 05:46: Bedside Glucose 131H 10/17/20 06:41: Bedside Glucose 111H 10/17/20 07:27: Bedside Glucose 110 10/17/20 08:39: Bedside Glucose 100 10/17/20 09:46: Bedside Glucose 98 10/17/20 10:30: Bedside Glucose 94 Height (Feet): 5 Height (Inches): 5 Current Weight: 165 (stated weight by patients) Usual Weight: 143 (bedscale weight on 10/02 would guess more accurate weight) %IBW: 106 Recent Weight Change: No (not significant) Weight Status: Appropriate GI Symptoms: Diarrhea Food Allergies: No Cultural/Ethnic/Orthodox Yadira: no pertinent Usual Diet at Home: Regular Skin Integrity/Comment: Yes (skin tear, no other wounds at this time) Current %PO: throws up everything BEE in Kcals: Use Current Weight Calories/Kcals/Kg: MSJ 1-1.3 Kcals Calculated: 1657-1871 Protein: Use Current Weight Protein g/k-1.5 Protein Calculated: 65-97 Fluid: ml: 1 ml/kcal 40-50% kcals for carbs or 117-206 g carbs Nutritional Problem: Nutr. Problems Present Problems: Inadequate oral intake Etiology: low appetite, n/v Signs/Symptoms: patient reports not being able to hold anything down and so not eating, possible SBO or ileus Food and Nutrition Intake (Mod: <75% est energy req 7days Is there a minimum of two crit: No Recommendations by RD: Add supplement feedings RD Comments: Recommend starting low suction for SBO or ileus to decompress stomach and bowel. 1. If can't tolerate po within 48 hours, Would recommend placing central line and starting TPN for blood sugar control and po intake. TPN recommendation would be Clinimix 5/15 starting at 20 ml/hr and advancing 10 ml/hr q6 until goal rate of 55 ml/hr with 46 ml 20% lipids 3 times a week. This will provide an average of 1200 kcals 66 g protein and 198 g carbohydrates and 31 g fat. This will meet 100% of estimated needs. 2. Check mg, phos, k, Na labs prior to starting tpn and throughout. Monitor glucose every 4 hours and treat appropriately. Expected Outcomes Goals: 1. Meet at least 50% of estimated needs through oral intake next 48 hours. 2. Monitor need for TPN and status of SBO or ileus. Discharge planning in progress with interdisciplinary team. Malnutrtion/Nutrition Risk Edu: No MD Notificiation Needed?: Yes (Recommend TPN if doesn't tolerate PO in 48 hours. ) TAHIRA GARCIA Oct 17, 2020 11:01
--- NOTE | 2020-10-17 13:07 | NUR ---
STATUS DR WILLOUGHBY NOTIFIED OF PT STATUS OF STABLE BLOOD SUGARS AND STABLE BLOOD PRESSURES. ORDER RECEIVED FROM DR WILLOUGHBY FOR ACCU CHECKS ACHS AND ROUTINE VITAL SIGNS. NO S/S OF DISTRESS NOTED. WILL CONT TO MONITOR.
--- NOTE | 2020-10-17 16:30 | PCM.EKG ---
[facility] Test Date: 2020-10-17 Test Time: 16:28:38 Pat Name: HERBER ZARATE Department: Room: 229 A Gender: F Coding Analyst: NISHI : 1950 Requested By: TERRENCE TORRES Order Number: [id number] Reading MD: Measurements Intervals Disney Rate: 57 P: 81 NJ: 141 QRS: 46 QRSD: 88 T: 262 QT: 515 QTc: 502 Interpretive Statements Sinus rhythm Low voltage, extremity leads Repol abnrm, prob ischemia, anterolateral lds Prolonged QT interval Compared to ECG 10/16/2020 21:02:26 Early repolarization now present Prolonged QT interval now present Possible ischemia still present Please click the below link to view image of tracing.
[2020-10-17] MEDS ORDERED: LOVENOX SQ STA (16:55)
[2020-10-17] MEDS: DESYREL PO SCH (20:15)
[2020-10-17] MEDS: SINGULAIR PO SCH (20:16)
[2020-10-17] MEDS: LIPITOR PO SCH (20:16)
[2020-10-17] MEDS: ZOLOFT PO SCH (20:16)
--- NOTE | 2020-10-17 21:03 | ECHO ---
DATE OF SERVICE: 10/17/2020 HISTORY: A 70-year-old female with history of troponin elevation and non-ST elevation myocardial infarction, CAD, coronary stents, bradycardia, hypotension at times, assess for LV function, history of congestive heart failure. FINDINGS: Mitral valve shows significant mitral regurgitation with 4.8 meters velocity, at least 2-3+ mitral regurgitation, normal E to A ratio, aortic sclerosis calcification with moderate aortic incompetence with pressure half time of 806 milliseconds with a 5-6 mm gradient across the aorta with aortic valve area of 2.2 sq cm and tricuspid regurgitation velocity of 3 meters with right ventricular systolic pressure of 47 mm, thickening of anterior right ventricular wall, right ventricle size normal. Right atrium is normal. Left atrium is normal. Left ventricle is enlarged to 5.56 cm, end diastolic dimension with top normal dimension with end systolic dimension of 4.12 with mild LVH posterior wall thickening. Ejection fraction is still 50-55% and IVC is top normal size, hence early left ventricular hypertrophy with moderate pulmonary hypertension, significant mitral regurgitation is noted. Basal septal thickening is noted. Ejection fraction is apparently intact aortic sclerosis, aortic incompetence, 2+ is noted, 2+ tricuspid regurgitation. No thrombus in any other cardiac chambers. Overall, LV contractility appears to be fairly normal. No thrombus in any of the cardiac chambers. Elda Otero MD DR: GLYNN/sania JOB# [id number]
--- NOTE | 2020-10-17 21:08 | CNH ---
DATE OF CONSULTATION: 10/17/2020 HISTORY OF PRESENT ILLNESS: The patient is a 70-year-old female who came to the Emergency Room on 10/16/2020 and she is not my primary patient, but there were no beds available in [place] and she has known history of cardiac disease and I was called as a analytics consultant and since she is not my patient, the patient got admitted under Dr. Call and her EKG was stable. She has a history of CAD and has had 2 prior coronary stents and at the present time, she presented with nausea, vomiting after drinking Boost. She denied any chest pain and she is on polytherapy for cardiac disease and has history of seizures and apparently her blood sugar was low. She has had multiple admissions with low blood sugars and another incidental finding is that her heart rate has been around 40-45 at times and she is on a high dose carvedilol 12.5 mg twice a day along with her other medications and has a history of congestive heart failure. Her proBNP was elevated when she came in after Dr. Call admitted her and this morning on 10/17/2020, the patient looked well. She was not in any distress. Her initial troponin was 0.42, subsequently 1.34 and her EKG initially was showing heart rate of 40 with a short CA interval, low voltage and nonspecific ST-T wave changes. She seems to be asymptomatic, prolonged QT interval was noted and at the present time, consultation seeking for an evaluation. ALLERGIES: CODEINE. MEDICATIONS: She is on a list of medications, which include albuterol inhaler, aspirin 81 mg once a day, Lipitor 40 mg once a day. She is on Keppra 500 mg twice a day, Singulair 10 mg once a day, nicotine patch daily, nitroglycerin on p.r.n. basis, Protonix 40 mg once a day, Zoloft 100 mg once a day, Brilinta 90 mg twice a day, trazodone 75 mg once a day. She is on Breo inhaler 1 puff daily, multivitamins, folic acid and she is on Coreg 12.5 mg twice a day, hydralazine 25 mg 3 times a day, Lantus insulin 20 units daily, and Entresto 24/ one tablet twice a day. Her Entresto, Coreg, and hydralazine were not started. PAST MEDICAL HISTORY: Indicative of COPD, hypertension, CAD, diabetes mellitus, congestive heart failure, history of CVA, TIA, appendectomy, cholecystectomy, hysterectomy and cardiac catheterization and stent placement over 2 years ago. SOCIAL HISTORY: History of tobacco use in the past. No history of any alcohol abuse. FAMILY HISTORY: Essentially noncontributory. PHYSICAL EXAMINATION: GENERAL: On examination, she seems to be alert, awake, oriented, and she is in poor general health, 165 cm, 74 kilogram, BMI 27.2. VITAL SIGNS: Showing pulse of 60, respirations 18, 104/60 blood pressure, temperature 97 and saturation was 98% on room air. HEENT: Unremarkable. NECK: No JVD, no carotid bruits. LUNGS: Showing poor air entry. Emphysematous chest. HEART: S1, S2 normal. No murmurs were audible. ABDOMEN: Soft, nontender. EXTREMITIES: No dependent edema. NEUROLOGIC: No focal neuro deficit is documented. Her ejection fraction by echo was fairly intact around 50%. LABORATORY DATA: Had shown 8.9 hemoglobin, 26.7 hematocrit, 4.1 white count and her rapid COVID test was negative. Chemistry showed creatinine of 1.67, 184 glucose and her troponin was 0.42, subsequently 1.34, 70279 ProBNP and INR was 1.2. Chest x-ray, small right-sided effusion. CT of chest was done. She had some ground glass appearance and nonspecific changes, small bilateral effusion, severe hepatic steatosis. IMPRESSION: History of syncopal episodes and loss of consciousness, history of seizures, coronary artery disease, bradycardia, rule out symptomatic sick sinus syndrome, questionable history of hypoglycemia, chronic obstructive pulmonary disease, troponin elevation, non-ST elevation myocardial infarction is always a consideration, but she is totally asymptomatic without any pain and her EKG is not consistent with any acute ischemic manifestations. PLAN: At this time, we will do a resting myocardial perfusion scan and a Lexiscan myocardial perfusion scan and assess for provoked ischemia at the present time. Creatinine was 1.67 and if needed a cardiac catheterization will be done. Assess need for a pacer, probably lower the dose of Coreg and further management will depend on clinical course. Thank you very much for this consultation. Elda Otero MD DR: GLYNN/sania JOB# [id number]
[2020-10-18] VITALS (7 sets, daily range): BP systolic 116–137; BP diastolic 52–69
[2020-10-18] MEDS: VENTOLIN HFA IH PRN ×2 (03:10→14:00)
[2020-10-18 05:41] LABS: BASOPHIL # 0.1 10^3/uL (0.0-0.1); BASOPHIL % 0.8 % (0.0-0.2); EOSINOPHIL # 0.1 10^3/uL (0.0-0.2); LYMPHOCYTES # 2.01 10^3/uL1 (1.0-4.8); LYMPHOCYTES % 33.2 % (24.0-44.0); MEAN CORP HGB 30.7 pg (26-34); MONOCYTES # 0.7 10^3/uL (0.3-0.8); MONOCYTES % 12.1 % (5.0-12.0); NEUTROPHIL # 3.1 10^3/uL (1.8-7.7); NEUTROPHILS % 51.1 % (41.0-85.0); PLATELET COUNT 315 10^3/uL (150-400); RED CELL DISTRIBUTION WIDTH 16.4 % (11.5-14.5)
--- NOTE | 2020-10-18 06:33 | NUR ---
PLEASE OBTAIN PATIENTS RECORDS FROM DR MADAY GREEN IN [place] DURING THE DAY, PER DR. CALDERÓN. [phone]
[2020-10-18 07:15] LABS: CALCIUM 8.7 mg/dL (8.4-10.5); CARBON DIOXIDE 19.5 mmol/L (20.0-32)
--- NOTE | 2020-10-18 08:54 | NUR ---
Received patient in bed alert and oriented x4 on room air no distress noted . Patient denied pain when asked .Patient voided . medium soft BM stool sample sent to the lad as per MD order.Continue monitoring.
--- NOTE | 2020-10-18 09:03 | PCM.EKG ---
[facility] Test Date: 2020-10-18 Test Time: 05:21:05 Pat Name: HERBER ZARATE Department: Room: 229 A Gender: F Hearing Therapy Teacher: JERI : 1950 Requested By: TERRENCE TORRES Order Number: [id number] Reading MD: Measurements Intervals [place] Rate: 65 P: 58 ND: 137 QRS: 14 QRSD: 95 T: 243 QT: 507 QTc: 528 Interpretive Statements Sinus rhythm Ventricular premature complex Low voltage, extremity and precordial leads Abnrm T, probable ischemia, anterolateral lds Prolonged QT interval Baseline wander in lead(s) V5 No previous ECG available for comparison Please click the below link to view image of tracing.
[2020-10-18] MEDS ORDERED: LEXISCAN IV STA (09:08)
[2020-10-18] MEDS ORDERED: KCL 20MEQ/100ML 200 ML IV ONE (09:30)
[2020-10-18] MEDS: NICOTINE 14MG PATCH TD SCH ×2 (09:57→10:07)
[2020-10-18] MEDS: PROTONIX PO SCH (09:57)
[2020-10-18] MEDS: KEPPRA PO SCH ×2 (09:57→20:32)
[2020-10-18] MEDS: THERA PO SCH (09:57)
[2020-10-18] MEDS: ASPIRIN EC PO SCH (09:57)
[2020-10-18] MEDS: BRILINTA PO SCH ×2 (09:57→20:32)
[2020-10-18] MEDS ORDERED: D5W-1/2 NS/KCL 20MEQ 1,000 ML ONE (10:10)
[2020-10-18] MEDS: D5W-1/2 NS/KCL 20MEQ 1,000 ML IV SCH (10:14)
[2020-10-18] MEDS: FOLIC ACID PO SCH (10:15)
[2020-10-18] MEDS: KLOR-CON 10 PO SCH ×3 (10:15→20:33)
[2020-10-18] MEDS ORDERED: DUO 0.5-3(2.5) MG/3 ML IH STA (10:35)
[2020-10-18 15:52] LABS: CARBON DIOXIDE 20.3 mmol/L (20.0-32)
[2020-10-18] MEDS ORDERED: NS 250ML 250 ML IV ONE (16:02)
--- NOTE | 2020-10-18 16:15 | NUR ---
Blood Transfusion started continue monitoring for adverse blood reactions. Temp 98. pulse 71, resp 16, o2 sat 98%, BP 125/54.
[2020-10-18] MEDS ORDERED: MAGNESIUM SULFATE 50 ML IV ONE (19:00)
--- NOTE | 2020-10-18 19:13 | NUR ---
Blood still infusing no adverse reactions noted v/s stable patient voided x7 and 7 loose to watery BMs,patient endorsed to overnight babysitter nurse .
[2020-10-18] MEDS: LIPITOR PO SCH (20:32)
[2020-10-18] MEDS: ZOLOFT PO SCH (20:32)
[2020-10-18] MEDS: SINGULAIR PO SCH (20:32)
[2020-10-18] MEDS: DESYREL PO SCH (20:33)
[2020-10-18] MEDS ORDERED: TYLENOL PO STA (21:15)
--- NOTE | 2020-10-18 21:24 | PRM.PN ---
Subjective Subjective Date: Oct 18, 2020 Time: 11:00 Subjective Pt had her nuclear stress test; is taking po better now with no vomiting this morning; denies any CP now Patient History: Unknown 32 MOTHER 33 FATHER VTE VTE Risk Total Score: 2 VTE Risk Score VTE Risk: Score 0-1 = Low Risk (Aggressive mobilization; early ambulation; no VTE prophylaxis required) Score 2: Moderate Risk (Intermittent/Pneumatic Compression Device OR Lovenox/Heparin/Coumadin) Score 3-4: High Risk (Intermittent/Pneumatic Compression Device AND Lovenox/Heparin/Coumadin) Score > or =5: Highest Risk (Intermittent/Pneumatic Compression Device AND Lovenox/Heparin/Coumadin) Antico:Hep/LMWH/Coum/Xarelto: Yes Mechanical device ordered: No Review of Systems Constitutional: Weakness; No: Fever, Chills, Sweats, Malaise Eyes: No: Pain, Vision change, Conjunctivae inflammation ENT: No: Ear pain, Ear discharge, Nose pain Respiratory: No: Cough, Dry, Shortness of breath Cardiovascular: No: Chest Pain, Palpitations, Orthopnea Gastrointestinal: No: Diarrhea, Constipation Genitourinary: No Dysuria, No Frequency, No Incontinence, No Hematuria Musculoskeletal: No: neck pain, shoulder pain, arm pain, back pain Skin: No: Lesions, Jaundice, Bruising Neurological: No: Incoordination, Change in speech, Confusion, Seizures Allergies: Coded Allergies: nicotine (Verified Allergy, Unknown, UNKNOWN, 10/18/20) codeine (Verified Adverse Reaction, Mild, Rash, 03/26/20) Scheduled Albuterol Sulfate (Ventolin Hfa), 18 GM IH Q6HR, (Reported) Aspirin (Aspirin Ec), 81 MG PO DAILY Atorvastatin 40MG (Lipitor 40MG), 40 MG PO HS Carvedilol 12.5MG (Coreg 12.MG), 12.5 MG PO BID Hydralazine Hcl (Hydralazine Hcl), 25 MG PO TID Insulin Glargine,Hum.rec.anlog (Lantus), 20 UNIT SQ HS Levetiracetam (Keppra), 500 MG PO BID Lipase/Protease/Amylase (Creon Dr 12,000 Units Capsule), 1 EACH PO AC Montelukast Sodium (Montelukast Sodium), 1 TAB PO HS, (Reported) Nicotine (Nicotine Patch), 1 EACH TD DAILY Pantoprazole Sodium (Protonix), 40 MG PO DAILY Sacubitril/Valsartan (Entresto 24 mg-26 mg Tablet), 1 EACH PO BID Sertraline Hcl (Zoloft), 1 TAB PO DAILY, (Reported) Ticagrelor (Brilinta), 90 MG PO BID Trazodone Hcl (Trazodone Hcl), 1.5 TAB PO HS, (Reported) Umeclidinium Brm/Vilanterol Tr (Anoro Ellipta 62.5-25 Mcg INH), 1 EACH IH DAILY24, (Reported) [Folic Acid], 1 MG PO DAILY [Multivitamin,Therapeutic], 1 EACH PO DAILY Scheduled PRN Nitroglycerin (Nitrostat), 0.4 MG SL PRN PRN for CHEST PAIN Objective Vitals and I/O Vital Sign - Last 24 Hours 10/18/20 10/18/20 10/18/20 10/18/20 00:52 01:19 04:00 04:55 Temp 98.2 98.0 Pulse 69 67 Resp 20 20 B/P (MAP) 118/54 (75) 116/52 (73) Pulse Ox 99 97 O2 Delivery Room Air Room Air 10/18/20 10/18/20 10/18/20 10/18/20 07:45 08:00 12:14 12:25 Temp 97.9 97.9 97.8 Pulse 78 76 Resp 16 16 B/P (MAP) 137/66 (89) 130/65 (86) Pulse Ox 99 99 O2 Delivery Room Air Room Air 10/18/20 10/18/20 10/18/20 10/18/20 14:00 16:15 16:30 17:00 Temp 98.0 98.1 97.5 Pulse 67 71 71 70 Resp 20 16 16 17 B/P (MAP) 125/54 117/56 Pulse Ox 99 99 10/18/20 10/18/20 19:43 20:21 Temp 97.8 Pulse 73 Resp 18 B/P (MAP) 135/69 (91) Pulse Ox 98 O2 Delivery Room Air Intake and Output 10/18/20 07:00 Intake Total 480 ml Balance 480 ml General: Alert, Oriented X3, Cooperative, No acute distress HEENT: Atraumatic, PERRLA, EOMI, Mucous membr. moist/pink Neck: Supple Lungs: Clear to auscultation, Normal air movement Heart: Regular rate, Normal S1, Normal S2 Abdomen: Normal bowel sounds, Soft, No tenderness Extremities: No clubbing, No cyanosis, No edema, Normal pulses, No tenderness/swelling Skin: No rashes, No significant lesion Neuro: Normal speech Psych/Mental Status: Mental status NL, Mood NL All Results(Lab/Rad) Laboratory Tests Test 10/16/20 09:29 10/16/20 10:52 10/16/20 14:04 10/16/20 18:00 White Blood Count 4.1 10^3/uL Red Blood Count 2.88 10^6/uL Hemoglobin 8.9 g/dL Hematocrit 26.7 % Mean Corpuscular Volume 92.7 fL Mean Corpuscular Hemoglobin 30.9 pg Mean Corpuscular Hemoglobin Concent 33.3 g/dL Red Cell Distribution Width 16.1 % Platelet Count 406 10^3/uL Mean Platelet Volume 11.8 fL Neutrophils (%) (Auto) 71.8 % Lymphocytes (%) (Auto) 18.1 % Monocytes (%) (Auto) 6.4 % Neutrophils # (Auto) 2.9 10^3/uL Lymphocytes # (Auto) 0.74 10^3/uL1 Monocytes # (Auto) 0.3 10^3/uL Absolute Immature Granulocyte (auto 0.08 10^3 u/L Absolute Eosinophils (auto) 0.0 10^3/uL Immature Granulocytes % 2.00 % Eosinophils % 0.7 % Basophils % 1.0 % Basophils # 0.0 10^3/uL Prothrombin Time 12.4 SEC Prothrombin Time INR (Non-Therap) 1.2 Activated Partial Thromboplast Time 26.7 SEC Sodium Level 143 mmol/L Potassium Level 4.4 mmol/L Chloride Level 112.0 mmol/L Carbon Dioxide Level 21.2 mmol/L Anion Gap 14.2 Blood Urea Nitrogen 10 mg/dL Creatinine 1.67 mg/dL Estimated GFR () 36.8 Est GFR (CKD-EPI)(Non-Afr Martiniquais) 30.4 BUN/Creatinine Ratio 5.0 Glucose Level 184 mg/dL Calcium Level 9.4 mg/dL Total Bilirubin 0.5 mg/dL Aspartate Amino Transf (AST/SGOT) 58 U/L Alanine Aminotransferase (ALT/SGPT) 24 U/L Alkaline Phosphatase 95 U/L Total Creatine Kinase 36 U/L Creatine Kinase MB 1.8 ng/mL Troponin I 0.42 ng/mL Pro-B-Type Natriuretic Peptide 86742 pg/mL Total Protein 4.9 g/dL Albumin 2.1 g/dL Globulin 2.8 Albumin/Globulin Ratio 0.750 SARS-CoV-2 Antigen (Rapid) NEGATIVE Bedside Glucose 81 144 Test 10/16/20 18:40 10/16/20 20:30 10/16/20 22:03 10/16/20 23:04 Troponin I 1.34 ng/mL Glucose Level 47 mg/dL Bedside Glucose 125 127 Test 10/17/20 00:36 10/17/20 00:46 10/17/20 01:53 10/17/20 03:03 Bedside Glucose 97 68 185 Absolute Reticulocyte Count 0.0292 10^6uL Percent Reticulocyte Count 1.21 % Troponin I 1.18 ng/mL Test 10/17/20 04:40 10/17/20 05:46 10/17/20 06:41 10/17/20 07:27 Bedside Glucose 135 131 111 110 Test 10/17/20 08:39 Bedside Glucose 100 Current Medications Medications (Trade) Dose Ordered Sig/Jacques Route PRN Reason Start Time Stop Time Status Last Admin Dose Admin Sodium Chloride 1,000 ml @ 0 mls/hr Q0M ONCE IV 10/16/20 10:00 10/16/20 10:01 DC 10/16/20 09:53 Atropine Sulfate (Atropine Sulfate) 1 mg STK-MED ONCE .ROUTE 10/16/20 09:50 10/16/20 09:53 DC Atropine Sulfate (Atropine Sulfate) 0.5 mg STAT STAT IV 10/16/20 09:53 10/16/20 09:54 DC 10/16/20 09:53 Dextrose (Dextrose 50%-Water Syringe) 50 ml STK-MED ONCE IV 10/16/20 17:42 10/16/20 17:44 DC Dextrose (Dextrose 50%-Water Syringe) 25 ml STAT STAT IV 10/16/20 17:55 10/16/20 18:14 DC 10/16/20 18:01 Albuterol Sulfate (Ventolin Hfa) 1 inh Q6HR PRN IH SHORTNESS OF BREATH 10/16/20 18:30 11/15/20 18:29 10/17/20 08:28 Aspirin (Aspirin Ec) 81 mg DAILY PO 10/17/20 09:00 11/16/20 08:59 Atorvastatin Calcium (Lipitor) 40 mg HS PO 10/16/20 21:00 11/15/20 20:59 10/16/20 21:01 Levetiracetam (Keppra) 500 mg BID PO 10/16/20 21:00 11/15/20 20:59 10/16/20 21:01 Montelukast Sodium (Singulair) 10 mg HS PO 10/16/20 21:00 11/15/20 20:59 10/16/20 21:01 Nicotine (Nicotine 14mg Patch) 1 each DAILY TD 10/17/20 09:00 11/16/20 08:59 Nitroglycerin (Nitrostat) 0.4 mg PRN PRN SL CHEST PAIN 10/16/20 18:30 11/15/20 18:29 Pantoprazole Sodium (Protonix) 40 mg DAILY PO 10/17/20 09:00 11/16/20 08:59 Ticagrelor (Brilinta) 90 mg BID PO 10/16/20 21:00 11/15/20 20:59 10/16/20 20:59 Trazodone HCl (Desyrel) 75 mg HS PO 10/16/20 21:00 11/15/20 20:59 10/16/20 21:01 Sertraline HCl (Zoloft) 100 mg HS PO 10/16/20 21:00 11/15/20 20:59 10/16/20 21:02 Folic Acid (Folic Acid) 1 mg DAILY PO 10/17/20 09:00 11/16/20 08:59 Dextrose (Dextrose 50%-Water Syringe) 50 ml STK-MED ONCE IV 10/16/20 20:16 10/16/20 20:18 DC Aspirin (Aspirin) 325 mg STK-MED ONCE .ROUTE 10/16/20 20:21 10/16/20 20:23 DC Aspirin (Aspirin Ec) 325 mg OT STAT PO 10/16/20 20:23 10/16/20 21:02 DC 10/16/20 20:59 Dextrose (Dextrose 50%-Water Syringe) 25 ml STAT STAT IV 10/16/20 20:50 10/16/20 21:36 DC Dextrose (Dextrose 50%-Water Syringe) 50 ml STAT STAT IV 10/16/20 21:51 10/16/20 21:56 DC 10/16/20 20:50 Sodium Chloride 1,000 ml @ ud STK-MED ONCE .ROUTE 10/16/20 23:06 10/16/20 23:08 DC Albuterol Sulfate (Ventolin Hfa) 2 inh STK-MED ONCE IH 10/16/20 23:22 10/16/20 23:24 DC Sodium Chloride 500 ml @ 500 mls/hr Q1H STAT IV 10/16/20 23:31 10/17/20 00:30 DC 10/16/20 23:35 Ondansetron HCl (Zofran) 4 mg OT PRN IV NAUSEA / VOMITING 10/17/20 01:30 11/16/20 01:29 10/17/20 01:10 Dextrose (Dextrose 50%-Water Syringe) 50 ml STAT PRN IV HYPOGLYCEMIA 10/17/20 02:00 11/16/20 01:59 10/17/20 02:16 Course Sepsis Screening Results: Posi: NEGATIVE Sepsis Qualifier/Stage: NO DEFINITE RISK Duration or Total Time Spent w: 45 Vitals & review Data Vital Sign - Last 24 Hours 10/16/20 10/16/20 10/16/20 10/16/20 09:13 09:13 09:24 10:21 Temp 97.0 97.0 97.0 97.0 Pulse 53 50 50 67 Resp 18 18 18 18 B/P (MAP) 107/41 (63) 99/45 (63) Pulse Ox 97 98 O2 Delivery Room Air Room Air 10/16/20 10/16/20 10/16/20 10/16/20 11:25 12:15 13:10 13:55 Temp 98.2 Pulse 59 64 67 66 Resp 18 18 18 18 B/P (MAP) 110/47 (68) 118/46 (70) 105/47 (66) 108/49 (68) Pulse Ox 99 99 99 99 O2 Delivery Room Air Room Air Room Air Room Air 10/16/20 10/16/20 10/16/20 10/16/20 16:15 16:38 17:48 18:36 Temp 98.2 97.7 Pulse 66 67 Resp 18 18 18 B/P (MAP) 108/49 (68) 115/52 (73) Pulse Ox 99 99 O2 Delivery Room Air Room Air Room Air 10/16/20 10/16/20 10/16/20 10/16/20 21:00 21:03 22:00 23:00 Temp 98.0 Pulse 58 60 66 56 Resp 18 20 18 16 B/P (MAP) 94/54 (67) 92/45 (61) 100/69 (79) 83/46 (58) Pulse Ox 98 97 99 98 O2 Delivery Room Air Room Air 10/16/20 10/17/20 10/17/20 10/17/20 23:30 00:15 00:48 01:17 Temp 98.4 Pulse 64 51 62 61 Resp 18 16 18 18 B/P (MAP) 112/51 (71) 105/50 (68) 122/72 (89) Pulse Ox 98 99 94 97 10/17/20 10/17/20 10/17/20 10/17/20 02:15 03:00 04:30 05:20 Temp 97.9 Pulse 58 63 79 72 Resp 20 16 18 16 B/P (MAP) 114/60 (78) 111/53 (72) 115/92 (100) 114/57 (76) Pulse Ox 98 96 95 97 O2 Delivery Room Air Room Air 10/17/20 10/17/20 10/17/20 10/17/20 06:00 07:31 07:32 08:26 Temp 97.6 Pulse 56 64 67 Resp 18 18 18 B/P (MAP) 92/44 (60) 104/51 (68) Pulse Ox 98 98 96 O2 Delivery Room Air Intake and Output 10/17/20 06:59 Intake Total 480 ml Output Total 250 ml Balance 230 ml Laboratory Tests Test 10/16/20 09:29 10/16/20 10:52 10/16/20 14:04 10/16/20 18:00 White Blood Count 4.1 10^3/uL Red Blood Count 2.88 10^6/uL Hemoglobin 8.9 g/dL Hematocrit 26.7 % Mean Corpuscular Volume 92.7 fL Mean Corpuscular Hemoglobin 30.9 pg Mean Corpuscular Hemoglobin Concent 33.3 g/dL Red Cell Distribution Width 16.1 % Platelet Count 406 10^3/uL Mean Platelet Volume 11.8 fL Neutrophils (%) (Auto) 71.8 % Lymphocytes (%) (Auto) 18.1 % Monocytes (%) (Auto) 6.4 % Neutrophils # (Auto) 2.9 10^3/uL Lymphocytes # (Auto) 0.74 10^3/uL1 Monocytes # (Auto) 0.3 10^3/uL Absolute Immature Granulocyte (auto 0.08 10^3 u/L Absolute Eosinophils (auto) 0.0 10^3/uL Immature Granulocytes % 2.00 % Eosinophils % 0.7 % Basophils % 1.0 % Basophils # 0.0 10^3/uL Prothrombin Time 12.4 SEC Prothrombin Time INR (Non-Therap) 1.2 Activated Partial Thromboplast Time 26.7 SEC Sodium Level 143 mmol/L Potassium Level 4.4 mmol/L Chloride Level 112.0 mmol/L Carbon Dioxide Level 21.2 mmol/L Anion Gap 14.2 Blood Urea Nitrogen 10 mg/dL Creatinine 1.67 mg/dL Estimated GFR () 36.8 Est GFR (CKD-EPI)(Non-Afr Martiniquais) 30.4 BUN/Creatinine Ratio 5.0 Glucose Level 184 mg/dL Calcium Level 9.4 mg/dL Total Bilirubin 0.5 mg/dL Aspartate Amino Transf (AST/SGOT) 58 U/L Alanine Aminotransferase (ALT/SGPT) 24 U/L Alkaline Phosphatase 95 U/L Total Creatine Kinase 36 U/L Creatine Kinase MB 1.8 ng/mL Troponin I 0.42 ng/mL Pro-B-Type Natriuretic Peptide 96166 pg/mL Total Protein 4.9 g/dL Albumin 2.1 g/dL Globulin 2.8 Albumin/Globulin Ratio 0.750 SARS-CoV-2 Antigen (Rapid) NEGATIVE Bedside Glucose 81 144 Test 10/16/20 18:40 10/16/20 20:30 10/16/20 22:03 10/16/20 23:04 Troponin I 1.34 ng/mL Glucose Level 47 mg/dL Bedside Glucose 125 127 Test 10/17/20 00:36 10/17/20 00:46 10/17/20 01:53 10/17/20 03:03 Bedside Glucose 97 68 185 Absolute Reticulocyte Count 0.0292 10^6uL Percent Reticulocyte Count 1.21 % Troponin I 1.18 ng/mL Test 10/17/20 04:40 10/17/20 05:46 10/17/20 06:41 10/17/20 07:27 Bedside Glucose 135 131 111 110 Test 10/17/20 08:39 Bedside Glucose 100 Current Medications Medications (Trade) Dose Ordered Sig/Jacques PRN Reason Start Time Stop Time Status Last Admin Albuterol Sulfate (Ventolin Hfa) 1 inh Q6HR PRN SHORTNESS OF BREATH 10/16/20 18:30 11/15/20 18:29 10/17/20 08:28 Aspirin (Aspirin Ec) 81 mg DAILY 10/17/20 09:00 11/16/20 08:59 Atorvastatin Calcium (Lipitor) 40 mg HS 10/16/20 21:00 11/15/20 20:59 10/16/20 21:01 Dextrose (Dextrose 50%-Water Syringe) 50 ml STAT PRN HYPOGLYCEMIA 10/17/20 02:00 11/16/20 01:59 10/17/20 02:16 Folic Acid (Folic Acid) 1 mg DAILY 10/17/20 09:00 11/16/20 08:59 Levetiracetam (Keppra) 500 mg BID 10/16/20 21:00 11/15/20 20:59 10/16/20 21:01 Montelukast Sodium (Singulair) 10 mg HS 10/16/20 21:00 11/15/20 20:59 10/16/20 21:01 Nicotine (Nicotine 14mg Patch) 1 each DAILY 10/17/20 09:00 11/16/20 08:59 Nitroglycerin (Nitrostat) 0.4 mg PRN PRN CHEST PAIN 10/16/20 18:30 11/15/20 18:29 Ondansetron HCl (Zofran) 4 mg OT PRN NAUSEA / VOMITING 10/17/20 01:30 11/16/20 01:29 10/17/20 01:10 Pantoprazole Sodium (Protonix) 40 mg DAILY 10/17/20 09:00 11/16/20 08:59 Sertraline HCl (Zoloft) 100 mg HS 10/16/20 21:00 11/15/20 20:59 10/16/20 21:02 Ticagrelor (Brilinta) 90 mg BID 10/16/20 21:00 11/15/20 20:59 11/22/20 20:59 Trazodone HCl (Desyrel) 75 mg HS 10/16/20 21:00 11/15/20 20:59 10/16/20 21:01 Sepsis Infection Criteria Pres: None LEVEL 1 SEPSIS INFECTION CRITE: None/Not assessed LEVEL 2-SIRS (LIST ALL THAT AP: None/Not assessed Cardiovascular Evidence: Not Assessed or None Hematologic Evidence: None/Not assessed Hepatic Evidence: None/Not assessed Metabolic Evidence: None/Not assessed Neurological Evidence: None/Not assessed Respiratory Evidence: None/Not assessed Renal Evidence: None/Not assessed O2 Sat by Pulse Oximetry: 98 Assessment/Plan Assessment/Plan Assessment/Plan 70 yo female with hypoglycemia, resolved AMS, resolved bradycardia, NSTEMI, N/V with suspected ileus - follow sugars; pt has not been eating well and has been on her lantus - cardiology following - will get PT for mobility JAYLEN WILLOUGHBY MD Oct 18, 2020 21:24
[2020-10-19] VITALS (7 sets, daily range): BP systolic 110–150; BP diastolic 57–80
--- NOTE | 2020-10-19 03:57 | STRESS ---
DATE OF SERVICE: 10/18/2020 LEXISCAN MYOCARDIAL PERFUSION SCAN PRIMARY PHYSICIAN: Dr. Yi Call IDENTIFICATION: The patient is a 70-year-old female, 165 pounds, 66 inches female with underlying history of CAD, post-2 coronary stents, came in with elevated BNP and troponin and with EKG showing anterior T inversions, QT prolongation, severe bradycardia, underlying hypoglycemia and having had a syncopal episode. No history of any chest pain, assess for ischemic substrate. Physical activities inactive, unable to walk. A 12-lead EKG, regular sinus rhythm, heart rate 70, anterior T inversion with QS pattern V1 through V3 and suggestive of old anteroseptal infarct and T-wave inversions. QTC is less compared to the initial EKG when she was admitted, is still within normal range. Resting heart rate 66. The patient had a resting scan done with 30.6 mCi on 10/17/2020 and on 10/18/2020, received 0.4 mg of Lexiscan IV followed by 32.4 mCi of Cardiolite and imaging was done 20-30 minutes later achieved heart rate of 90 and a blood pressure 106/50. IMPRESSION: Abnormal myocardial perfusion scan with medium size apical fixed defect consistent with remote infarct, intact perfusion of the septum, inferior septum, anterior lateral and inferior wall. No provoked ischemic substrate. TID 1.01, apical akinetic segment. Overall, LV contractility was acceptable with ejection fraction of 50%. Hence, in view of no provoked ischemic manifestations, medical therapy has opted. Continue same optimized medical therapy at the present time. She has been bradycardic in the past, so one may consider pacing if the patient continues to have recurrent bradycardia at the present time, her rate is acceptable. Low dose beta-kevin to be advised. She was on Coreg 12.5 mg twice a day, cut it down to 6.25 mg twice a day and continue optimized medical therapy. Laxmichand MD Shanna DR: GLYNN/sania JOB# [id number] CC: Yi Call MD
[2020-10-19 05:30] LABS: BASOPHIL % 0.5 % (0.0-0.2); EOSINOPHIL # 0.1 10^3/uL (0.0-0.2); EOSINOPHIL % 2.1 % (0.0-5.0); LYMPHOCYTES # 2.22 10^3/uL1 (1.0-4.8); LYMPHOCYTES % 33.9 % (24.0-44.0); MEAN CORP HGB 30.6 pg (26-34); MONOCYTES # 0.9 10^3/uL (0.3-0.8); NEUTROPHIL # 3.3 10^3/uL (1.8-7.7); PLATELET COUNT 292 10^3/uL (150-400); RED CELL DISTRIBUTION WIDTH 16.3 % (11.5-14.5)
[2020-10-19 05:42] LABS: CALCIUM 8.9 mg/dL (8.4-10.5); CARBON DIOXIDE 18.2 mmol/L (20.0-32)
[2020-10-19] MEDS: D5W-1/2 NS/KCL 20MEQ 1,000 ML IV SCH (07:00)
--- NOTE | 2020-10-19 08:00 | NUR ---
Received patient in bed alert and oriented x3 no distress noted. Patient denied pain when asked am care done 3 watery stool noted barrier cream applied to maintain skin integrity , patient ate small amount of breakfast, IV fluid infusing as per order (see meds sheet) well tolerated no infiltration note on IV site , continue monitoring.
[2020-10-19] MEDS ORDERED: ZOFRAN ODT ONE (08:19)
[2020-10-19] MEDS: ASPIRIN EC PO SCH (08:33)
[2020-10-19] MEDS: THERA PO SCH (08:33)
[2020-10-19] MEDS: BRILINTA PO SCH ×2 (08:35→20:10)
[2020-10-19] MEDS: KLOR-CON 10 PO SCH (08:35)
[2020-10-19] MEDS: KEPPRA PO SCH ×2 (08:35→20:09)
[2020-10-19] MEDS ORDERED: PROTONIX IV IV ONE (08:36)
[2020-10-19] MEDS: ZOFRAN IV PRN (08:41)
[2020-10-19] MEDS: PROTONIX PO SCH (08:42)
--- NOTE | 2020-10-19 08:55 | PRM.PN ---
Subjective Subjective Date: Oct 19, 2020 Time: 08:40 Subjective Pt has nausea and spitting up phlegm; denies any CP or abd pains and has several BMs since yesterday Patient History: Unknown 33 MOTHER 34 FATHER VTE VTE Risk Total Score: 2 VTE Risk Score VTE Risk: Score 0-1 = Low Risk (Aggressive mobilization; early ambulation; no VTE prophylaxis required) Score 2: Moderate Risk (Intermittent/Pneumatic Compression Device OR Lovenox/Heparin/Coumadin) Score 3-4: High Risk (Intermittent/Pneumatic Compression Device AND Lovenox/Heparin/Coumadin) Score > or =5: Highest Risk (Intermittent/Pneumatic Compression Device AND Lovenox/Heparin/Coumadin) Antico:Hep/LMWH/Coum/Xarelto: Yes Mechanical device ordered: No Review of Systems Constitutional: No: Fever, Chills, Sweats, Malaise Eyes: No: Pain, Vision change, Conjunctivae inflammation ENT: No: Ear pain, Ear discharge, Nose pain Respiratory: No: Cough, Dry, Shortness of breath Cardiovascular: No: Chest Pain, Palpitations, Orthopnea Gastrointestinal: Nausea, Vomiting; No: Abdominal Pain, Constipation Genitourinary: No Dysuria, No Frequency, No Incontinence, No Hematuria Musculoskeletal: No: neck pain, shoulder pain, arm pain, back pain Skin: No: Lesions, Jaundice, Bruising Neurological: No: Incoordination, Change in speech, Confusion, Seizures Allergies: Coded Allergies: nicotine (Verified Allergy, Unknown, UNKNOWN, 10/18/20) codeine (Verified Adverse Reaction, Mild, Rash, 03/26/20) Scheduled Albuterol Sulfate (Ventolin Hfa), 18 GM IH Q6HR, (Reported) Aspirin (Aspirin Ec), 81 MG PO DAILY Atorvastatin 40MG (Lipitor 40MG), 40 MG PO HS Carvedilol 12.5MG (Coreg 12.MG), 12.5 MG PO BID Hydralazine Hcl (Hydralazine Hcl), 25 MG PO TID Insulin Glargine,Hum.rec.anlog (Lantus), 20 UNIT SQ HS Levetiracetam (Keppra), 500 MG PO BID Lipase/Protease/Amylase (Creon Dr 12,000 Units Capsule), 1 EACH PO AC Montelukast Sodium (Montelukast Sodium), 1 TAB PO HS, (Reported) Nicotine (Nicotine Patch), 1 EACH TD DAILY Pantoprazole Sodium (Protonix), 40 MG PO DAILY Sacubitril/Valsartan (Entresto 24 mg-26 mg Tablet), 1 EACH PO BID Sertraline Hcl (Zoloft), 1 TAB PO DAILY, (Reported) Ticagrelor (Brilinta), 90 MG PO BID Trazodone Hcl (Trazodone Hcl), 1.5 TAB PO HS, (Reported) Umeclidinium Brm/Vilanterol Tr (Anoro Ellipta 62.5-25 Mcg INH), 1 EACH IH DAILY24, (Reported) [Folic Acid], 1 MG PO DAILY [Multivitamin,Therapeutic], 1 EACH PO DAILY Scheduled PRN Nitroglycerin (Nitrostat), 0.4 MG SL PRN PRN for CHEST PAIN Objective Vitals and I/O Vital Sign - Last 24 Hours 10/18/20 10/18/20 10/18/20 10/18/20 12:14 12:25 14:00 16:15 Temp 97.9 97.8 98.0 Pulse 76 67 71 Resp 16 20 16 B/P (MAP) 130/65 (86) 125/54 Pulse Ox 99 99 10/18/20 10/18/20 10/18/20 10/18/20 16:30 17:00 19:43 20:21 Temp 98.1 97.5 97.8 Pulse 71 70 73 Resp 16 17 18 B/P (MAP) 117/56 135/69 (91) Pulse Ox 99 98 O2 Delivery Room Air 10/19/20 10/19/20 10/19/20 00:52 04:45 07:35 Temp 98.1 97.7 98.1 Pulse 94 73 82 Resp 18 18 20 B/P (MAP) 125/66 (85) 110/68 (82) 124/57 (79) Pulse Ox 96 96 96 Intake and Output 10/19/20 07:00 Intake Total 660 ml Balance 660 ml General: Alert, Oriented X3, Cooperative, No acute distress HEENT: Atraumatic, PERRLA, EOMI, Mucous membr. moist/pink Neck: Supple, No JVD, No LAD Lungs: Clear to auscultation, Normal air movement Heart: Regular rate, Normal S1, Normal S2 Abdomen: Normal bowel sounds, Soft, No tenderness Extremities: No clubbing, No cyanosis, No edema, Normal pulses, No tenderness/swelling Skin: No rashes, No significant lesion Neuro: Normal speech Psych/Mental Status: Mental status NL, Mood NL All Results(Lab/Rad) Laboratory Tests Test 10/16/20 09:29 10/16/20 10:52 10/16/20 14:04 10/16/20 18:00 White Blood Count 4.1 10^3/uL Red Blood Count 2.88 10^6/uL Hemoglobin 8.9 g/dL Hematocrit 26.7 % Mean Corpuscular Volume 92.7 fL Mean Corpuscular Hemoglobin 30.9 pg Mean Corpuscular Hemoglobin Concent 33.3 g/dL Red Cell Distribution Width 16.1 % Platelet Count 406 10^3/uL Mean Platelet Volume 11.8 fL Neutrophils (%) (Auto) 71.8 % Lymphocytes (%) (Auto) 18.1 % Monocytes (%) (Auto) 6.4 % Neutrophils # (Auto) 2.9 10^3/uL Lymphocytes # (Auto) 0.74 10^3/uL1 Monocytes # (Auto) 0.3 10^3/uL Absolute Immature Granulocyte (auto 0.08 10^3 u/L Absolute Eosinophils (auto) 0.0 10^3/uL Immature Granulocytes % 2.00 % Eosinophils % 0.7 % Basophils % 1.0 % Basophils # 0.0 10^3/uL Prothrombin Time 12.4 SEC Prothrombin Time INR (Non-Therap) 1.2 Activated Partial Thromboplast Time 26.7 SEC Sodium Level 143 mmol/L Potassium Level 4.4 mmol/L Chloride Level 112.0 mmol/L Carbon Dioxide Level 21.2 mmol/L Anion Gap 14.2 Blood Urea Nitrogen 10 mg/dL Creatinine 1.67 mg/dL Estimated GFR () 36.8 Est GFR (CKD-EPI)(Non-Afr Yemeni) 30.4 BUN/Creatinine Ratio 5.0 Glucose Level 184 mg/dL Calcium Level 9.4 mg/dL Total Bilirubin 0.5 mg/dL Aspartate Amino Transf (AST/SGOT) 58 U/L Alanine Aminotransferase (ALT/SGPT) 24 U/L Alkaline Phosphatase 95 U/L Total Creatine Kinase 36 U/L Creatine Kinase MB 1.8 ng/mL Troponin I 0.42 ng/mL Pro-B-Type Natriuretic Peptide 26135 pg/mL Total Protein 4.9 g/dL Albumin 2.1 g/dL Globulin 2.8 Albumin/Globulin Ratio 0.750 SARS-CoV-2 Antigen (Rapid) NEGATIVE Bedside Glucose 81 144 Test 10/16/20 18:40 10/16/20 20:30 10/16/20 22:03 10/16/20 23:04 Troponin I 1.34 ng/mL Glucose Level 47 mg/dL Bedside Glucose 125 127 Test 10/17/20 00:36 10/17/20 00:46 10/17/20 01:53 10/17/20 03:03 Bedside Glucose 97 68 185 Absolute Reticulocyte Count 0.0292 10^6uL Percent Reticulocyte Count 1.21 % Troponin I 1.18 ng/mL Test 10/17/20 04:40 10/17/20 05:46 10/17/20 06:41 10/17/20 07:27 Bedside Glucose 135 131 111 110 Test 10/17/20 08:39 Bedside Glucose 100 Current Medications Medications (Trade) Dose Ordered Sig/Jacques Route PRN Reason Start Time Stop Time Status Last Admin Dose Admin Sodium Chloride 1,000 ml @ 0 mls/hr Q0M ONCE IV 10/16/20 10:00 10/16/20 10:01 DC 10/16/20 09:53 Atropine Sulfate (Atropine Sulfate) 1 mg STK-MED ONCE .ROUTE 10/16/20 09:50 10/16/20 09:53 DC Atropine Sulfate (Atropine Sulfate) 0.5 mg STAT STAT IV 10/16/20 09:53 10/16/20 09:54 DC 10/16/20 09:53 Dextrose (Dextrose 50%-Water Syringe) 50 ml STK-MED ONCE IV 10/16/20 17:42 10/16/20 17:44 DC Dextrose (Dextrose 50%-Water Syringe) 25 ml STAT STAT IV 10/16/20 17:55 10/16/20 18:14 DC 10/16/20 18:01 Albuterol Sulfate (Ventolin Hfa) 1 inh Q6HR PRN IH SHORTNESS OF BREATH 10/16/20 18:30 11/15/20 18:29 10/17/20 08:28 Aspirin (Aspirin Ec) 81 mg DAILY PO 10/17/20 09:00 11/16/20 08:59 Atorvastatin Calcium (Lipitor) 40 mg HS PO 10/16/20 21:00 11/15/20 20:59 10/16/20 21:01 Levetiracetam (Keppra) 500 mg BID PO 10/16/20 21:00 11/15/20 20:59 10/16/20 21:01 Montelukast Sodium (Singulair) 10 mg HS PO 10/16/20 21:00 11/15/20 20:59 10/16/20 21:01 Nicotine (Nicotine 14mg Patch) 1 each DAILY TD 10/17/20 09:00 11/16/20 08:59 Nitroglycerin (Nitrostat) 0.4 mg PRN PRN SL CHEST PAIN 10/16/20 18:30 11/15/20 18:29 Pantoprazole Sodium (Protonix) 40 mg DAILY PO 10/17/20 09:00 11/16/20 08:59 Ticagrelor (Brilinta) 90 mg BID PO 10/16/20 21:00 11/15/20 20:59 10/16/20 20:59 Trazodone HCl (Desyrel) 75 mg HS PO 10/16/20 21:00 11/15/20 20:59 10/16/20 21:01 Sertraline HCl (Zoloft) 100 mg HS PO 10/16/20 21:00 11/15/20 20:59 10/16/20 21:02 Folic Acid (Folic Acid) 1 mg DAILY PO 10/17/20 09:00 11/16/20 08:59 Dextrose (Dextrose 50%-Water Syringe) 50 ml STK-MED ONCE IV 10/16/20 20:16 10/16/20 20:18 DC Aspirin (Aspirin) 325 mg STK-MED ONCE .ROUTE 10/16/20 20:21 10/16/20 20:23 DC Aspirin (Aspirin Ec) 325 mg OT STAT PO 10/16/20 20:23 10/16/20 21:02 DC 10/16/20 20:59 Dextrose (Dextrose 50%-Water Syringe) 25 ml STAT STAT IV 10/16/20 20:50 10/16/20 21:36 DC Dextrose (Dextrose 50%-Water Syringe) 50 ml STAT STAT IV 10/16/20 21:51 10/16/20 21:56 DC 10/16/20 20:50 Sodium Chloride 1,000 ml @ ud STK-MED ONCE .ROUTE 10/16/20 23:06 10/16/20 23:08 DC Albuterol Sulfate (Ventolin Hfa) 2 inh STK-MED ONCE IH 10/16/20 23:22 10/16/20 23:24 DC Sodium Chloride 500 ml @ 500 mls/hr Q1H STAT IV 10/16/20 23:31 10/17/20 00:30 DC 10/16/20 23:35 Ondansetron HCl (Zofran) 4 mg OT PRN IV NAUSEA / VOMITING 10/17/20 01:30 11/16/20 01:29 10/17/20 01:10 Dextrose (Dextrose 50%-Water Syringe) 50 ml STAT PRN IV HYPOGLYCEMIA 10/17/20 02:00 11/16/20 01:59 10/17/20 02:16 Course Sepsis Screening Results: Posi: NEGATIVE Sepsis Qualifier/Stage: NO DEFINITE RISK Duration or Total Time Spent w: 45 Vitals & review Data Vital Sign - Last 24 Hours 10/16/20 10/16/20 10/16/20 10/16/20 09:13 09:13 09:24 10:21 Temp 97.0 97.0 97.0 97.0 Pulse 53 50 50 67 Resp 18 18 18 18 B/P (MAP) 107/41 (63) 99/45 (63) Pulse Ox 97 98 O2 Delivery Room Air Room Air 10/16/20 10/16/20 10/16/20 10/16/20 11:25 12:15 13:10 13:55 Temp 98.2 Pulse 59 64 67 66 Resp 18 18 18 18 B/P (MAP) 110/47 (68) 118/46 (70) 105/47 (66) 108/49 (68) Pulse Ox 99 99 99 99 O2 Delivery Room Air Room Air Room Air Room Air 10/16/20 10/16/20 10/16/20 10/16/20 16:15 16:38 17:48 18:36 Temp 98.2 97.7 Pulse 66 67 Resp 18 18 18 B/P (MAP) 108/49 (68) 115/52 (73) Pulse Ox 99 99 O2 Delivery Room Air Room Air Room Air 11/22/20 10/16/20 10/16/20 10/16/20 21:00 21:03 22:00 23:00 Temp 98.0 Pulse 58 60 66 56 Resp 18 20 18 16 B/P (MAP) 94/54 (67) 92/45 (61) 100/69 (79) 83/46 (58) Pulse Ox 98 97 99 98 O2 Delivery Room Air Room Air 10/16/20 10/17/20 10/17/20 10/17/20 23:30 00:15 00:48 01:17 Temp 98.4 Pulse 64 51 62 61 Resp 18 16 18 18 B/P (MAP) 112/51 (71) 105/50 (68) 122/72 (89) Pulse Ox 98 99 94 97 10/17/20 10/17/20 10/17/20 10/17/20 02:15 03:00 04:30 05:20 Temp 97.9 Pulse 58 63 79 72 Resp 20 16 18 16 B/P (MAP) 114/60 (78) 111/53 (72) 115/92 (100) 114/57 (76) Pulse Ox 98 96 95 97 O2 Delivery Room Air Room Air 10/17/20 10/17/20 10/17/20 10/17/20 06:00 07:31 07:32 08:26 Temp 97.6 Pulse 56 64 67 Resp 18 18 18 B/P (MAP) 92/44 (60) 104/51 (68) Pulse Ox 98 98 96 O2 Delivery Room Air Intake and Output 10/17/20 06:59 Intake Total 480 ml Output Total 250 ml Balance 230 ml Laboratory Tests Test 10/16/20 09:29 10/16/20 10:52 10/16/20 14:04 10/16/20 18:00 White Blood Count 4.1 10^3/uL Red Blood Count 2.88 10^6/uL Hemoglobin 8.9 g/dL Hematocrit 26.7 % Mean Corpuscular Volume 92.7 fL Mean Corpuscular Hemoglobin 30.9 pg Mean Corpuscular Hemoglobin Concent 33.3 g/dL Red Cell Distribution Width 16.1 % Platelet Count 406 10^3/uL Mean Platelet Volume 11.8 fL Neutrophils (%) (Auto) 71.8 % Lymphocytes (%) (Auto) 18.1 % Monocytes (%) (Auto) 6.4 % Neutrophils # (Auto) 2.9 10^3/uL Lymphocytes # (Auto) 0.74 10^3/uL1 Monocytes # (Auto) 0.3 10^3/uL Absolute Immature Granulocyte (auto 0.08 10^3 u/L Absolute Eosinophils (auto) 0.0 10^3/uL Immature Granulocytes % 2.00 % Eosinophils % 0.7 % Basophils % 1.0 % Basophils # 0.0 10^3/uL Prothrombin Time 12.4 SEC Prothrombin Time INR (Non-Therap) 1.2 Activated Partial Thromboplast Time 26.7 SEC Sodium Level 143 mmol/L Potassium Level 4.4 mmol/L Chloride Level 112.0 mmol/L Carbon Dioxide Level 21.2 mmol/L Anion Gap 14.2 Blood Urea Nitrogen 10 mg/dL Creatinine 1.67 mg/dL Estimated GFR () 36.8 Est GFR (CKD-EPI)(Non-Afr Yemeni) 30.4 BUN/Creatinine Ratio 5.0 Glucose Level 184 mg/dL Calcium Level 9.4 mg/dL Total Bilirubin 0.5 mg/dL Aspartate Amino Transf (AST/SGOT) 58 U/L Alanine Aminotransferase (ALT/SGPT) 24 U/L Alkaline Phosphatase 95 U/L Total Creatine Kinase 36 U/L Creatine Kinase MB 1.8 ng/mL Troponin I 0.42 ng/mL Pro-B-Type Natriuretic Peptide 22287 pg/mL Total Protein 4.9 g/dL Albumin 2.1 g/dL Globulin 2.8 Albumin/Globulin Ratio 0.750 SARS-CoV-2 Antigen (Rapid) NEGATIVE Bedside Glucose 81 144 Test 10/16/20 18:40 10/16/20 20:30 10/16/20 22:03 10/16/20 23:04 Troponin I 1.34 ng/mL Glucose Level 47 mg/dL Bedside Glucose 125 127 Test 10/17/20 00:36 10/17/20 00:46 10/17/20 01:53 10/17/20 03:03 Bedside Glucose 97 68 185 Absolute Reticulocyte Count 0.0292 10^6uL Percent Reticulocyte Count 1.21 % Troponin I 1.18 ng/mL Test 10/17/20 04:40 10/17/20 05:46 10/17/20 06:41 10/17/20 07:27 Bedside Glucose 135 131 111 110 Test 10/17/20 08:39 Bedside Glucose 100 Current Medications Medications (Trade) Dose Ordered Sig/Jacques PRN Reason Start Time Stop Time Status Last Admin Albuterol Sulfate (Ventolin Hfa) 1 inh Q6HR PRN SHORTNESS OF BREATH 10/16/20 18:30 12 18:29 10/17/20 08:28 Aspirin (Aspirin Ec) 81 mg DAILY 10/17/20 09:00 11/16/20 08:59 Atorvastatin Calcium (Lipitor) 40 mg HS 10/16/20 21:00 11/15/20 20:59 10/16/20 21:01 Dextrose (Dextrose 50%-Water Syringe) 50 ml STAT PRN HYPOGLYCEMIA 10/17/20 02:00 11/16/20 01:59 10/17/20 02:16 Folic Acid (Folic Acid) 1 mg DAILY 10/17/20 09:00 11/16/20 08:59 Levetiracetam (Keppra) 500 mg BID 10/16/20 21:00 11/15/20 20:59 10/16/20 21:01 Montelukast Sodium (Singulair) 10 mg HS 10/16/20 21:00 11/15/20 20:59 10/16/20 21:01 Nicotine (Nicotine 14mg Patch) 1 each DAILY 10/17/20 09:00 11/16/20 08:59 Nitroglycerin (Nitrostat) 0.4 mg PRN PRN CHEST PAIN 10/16/20 18:30 11/15/20 18:29 Ondansetron HCl (Zofran) 4 mg OT PRN NAUSEA / VOMITING 10/17/20 01:30 11/16/20 01:29 10/17/20 01:10 Pantoprazole Sodium (Protonix) 40 mg DAILY 10/17/20 09:00 11/16/20 08:59 Sertraline HCl (Zoloft) 100 mg HS 10/16/20 21:00 11/15/20 20:59 10/16/20 21:02 Ticagrelor (Brilinta) 90 mg BID 10/16/20 21:00 11/15/20 20:59 10/16/20 20:59 Trazodone HCl (Desyrel) 75 mg HS 10/16/20 21:00 11/15/20 20:59 10/16/20 21:01 Sepsis Infection Criteria Pres: None LEVEL 1 SEPSIS INFECTION CRITE: None/Not assessed LEVEL 2-SIRS (LIST ALL THAT AP: None/Not assessed Cardiovascular Evidence: Not Assessed or None Hematologic Evidence: None/Not assessed Hepatic Evidence: None/Not assessed Metabolic Evidence: None/Not assessed Neurological Evidence: None/Not assessed Respiratory Evidence: None/Not assessed Renal Evidence: None/Not assessed O2 Sat by Pulse Oximetry: 96 Assessment/Plan Assessment/Plan Assessment/Plan 70 yo female with NSTEMI, resolved ileus, resolved hypoglycemia and bradycardia, COPD - pt has not been ambulatory for a long time; will help with transfers to chair and wheelchair - K+ corrected - will start low dose B-kevin and cont aspirin and brilinta - follow sugars; lantus has been stopped due to her poor appetite - on COPD meds - D/C planning for tomorrow if stable JAYLEN WILLOUGHBY MD Oct 19, 2020 08:55
--- NOTE | 2020-10-19 10:00 | NUR ---
DISCHARGE PLAN PT IS CURRENTLY A SKILLED PT AT [facility]. IT IS HER REQUEST TO RETURN BACK TO [facility] UPON DC. PATRIC HAS ARRANGED A PRINCIPAL STATISTICAL SCIENTIST TIME FOR 1000 ON 10/20/20. PATRIC NOTIFIED KEVIN DAY RN AND DR. WILLOUGHBY OF ABOVE.
--- NOTE | 2020-10-19 14:27 | NUR ---
Dr. Oneyda Call notified of multiple frequent loose bowel movements. New order received for Imodium 4mg po stat and Imodium 2mg po q6hr PRN. RBTO.
--- NOTE | 2020-10-19 14:32 | NUR ---
Patient voided, 12 watery cream to avoid , 12 BMs from 7a to 14.30 MD WILLOUGHBY notified, no order given, continue applying barrier cream to main skin integrity.
[2020-10-19] MEDS ORDERED: IMODIUM PO STA (15:04)
[2020-10-19] MEDS ORDERED: IMODIUM PO PRN (15:30)
--- NOTE | 2020-10-19 15:33 | DIET.OP ---
Nutrition Asmt/Malnutrit 2-17 Actual Date of Review: Oct 19, 2020 Nutritional Screening: Malnutr/Diet Consult Diagnosis: hypovolemia shock, hypoglycemia Pertinent Medical Hx/Surgical: HTN, hyperlipidemia, COPD, GERD, CVA with residual speech difficulty, CHF, DM, RA Subjective Information: telehealth f/u - po intake improved slightly. Ileus has resolved. Lantus stopped for now due to reduced intake. Need current accurate weight from bedscale weight history: 165 10/16/2020 stated by patient 143 10/02/2020 bedscale on last admission. Current Diet Order/Nutrition S: clear liquid Patient /S.O: Not Indicated Pertinent Meds Current Medications Medications (Trade) Dose Ordered Sig/Jacques PRN Reason Start Time Stop Time Status Last Admin Albuterol Sulfate (Ventolin Hfa) 1 inh Q6HR PRN SHORTNESS OF BREATH 10/16/20 18:30 11/15/20 18:29 10/18/20 14:00 Aspirin (Aspirin Ec) 81 mg DAILY 10/17/20 09:00 11/16/20 08:59 10/19/20 08:33 Atorvastatin Calcium (Lipitor) 40 mg HS 10/16/20 21:00 11/15/20 20:59 10/18/20 20:32 Carvedilol (Coreg) 3.125 mg BID 10/19/20 19:00 11/18/20 18:59 Dextrose (Dextrose 50%-Water Syringe) 50 ml STAT PRN HYPOGLYCEMIA 10/17/20 02:00 11/16/20 01:59 10/17/20 02:16 Levetiracetam (Keppra) 500 mg BID 10/16/20 21:00 11/15/20 20:59 10/19/20 08:35 Loperamide HCl (Imodium) 2 mg Q6HR PRN DIARRHEA 10/19/20 15:30 11/18/20 15:29 UNV Loperamide HCl (Imodium) 4 mg STAT STAT 10/19/20 15:04 10/19/20 15:05 UNV Montelukast Sodium (Singulair) 10 mg HS 10/16/20 21:00 11/15/20 20:59 10/18/20 20:32 Nicotine (Nicotine 14mg Patch) 1 each DAILY 10/17/20 09:00 11/16/20 08:59 10/18/20 09:57 Nitroglycerin (Nitrostat) 0.4 mg PRN PRN CHEST PAIN 10/16/20 18:30 11/15/20 18:29 Ondansetron HCl (Zofran) 4 mg OT PRN NAUSEA / VOMITING 10/17/20 01:30 11/16/20 01:29 10/19/20 08:41 Pantoprazole Sodium (Protonix) 40 mg DAILY 10/17/20 09:00 11/16/20 08:59 10/19/20 08:42 Sertraline HCl (Zoloft) 100 mg HS 10/16/20 21:00 11/15/20 20:59 10/18/20 20:32 Ticagrelor (Brilinta) 90 mg BID 10/16/20 21:00 11/15/20 20:59 10/19/20 08:35 Trazodone HCl (Desyrel) 75 mg HS 10/16/20 21:00 11/15/20 20:59 10/18/20 20:33 Pertinent Labs BUN 6, BG 117 mg/dl, Cl 115 Height (Feet): 5 Height (Inches): 5 Current Weight: 165 (stated weight by patients) Usual Weight: 143 (bedscale weight on 10/02 would guess more accurate weight) %IBW: 106 Recent Weight Change: No (not significant) Weight Status: Appropriate GI Symptoms: Diarrhea, [place] GI Comments 12 watery BMs today so far fluid balance is pos 4,443 mls Food Allergies: No Cultural/Ethnic/Church Yadira: no pertinent Usual Diet at Home: Regular Skin Integrity/Comment: Yes (skin tear, no other wounds at this time) Current %PO: 20-40% BEE in Kcals: Use Current Weight Calories/Kcals/Kg: MSJ 1-1.3 Kcals Calculated: [id number] Protein: Use Current Weight Protein g/k-1.5 Protein Calculated: 65-97 Fluid: ml: 1 ml/kcal 40-50% kcals for carbs or 117-206 g carbs Nutritional Problem: Nutr. Problems Present Problems: Inadequate oral intake Etiology: low appetite, n/v Signs/Symptoms: 20-40% po intake not meeting estimated needs Recommendations by RD: Add supplement feedings RD Comments: 1. Continue clear liquid diet as tolerated by pt. 2. Advance diet to full liquids per MD. 3. Recommend Ensure Clear oral supplement to help meet nutrition needs while on clear liquid diet 4. Updated weight measurement to assess for wt changes. 5. Monitor BG and need to resume insulin. 6. RD to monitor po intake and diet tolerance and need for nutrition support Expected Outcomes Diet advanced to full liquids in 1-2 days Discharge goal is pending and discharge planning is in progress with interdisciplinary team Malnutrtion/Nutrition Risk Edu: No MD Notificiation Needed?: No Samantha Pisano Oct 19, 2020 15:33
--- NOTE | 2020-10-19 15:51 | PNH ---
DATE: 10/18/2020 IDENTIFICATION: A 70-year-old female. SUBJECTIVE: The patient is not having any chest pain. She had a deep symmetrical T inversion across the precordium along with loss of R forces in V1, V2 with QT prolongation and she came in with history of syncope. She was bradycardic at a rate of 40 and initially thought may have junctional rhythm given MN interval was short and has underlying history of CAD with 2 coronary stents with a history of COPD and CHF and her troponin was elevated and Lexiscan showed a fixed apical defect, no provoked ischemia, intact perfusion of the anterior septum and lateral and inferior wall and ejection fraction of 50%. End-diastolic and end-systolic volumes were normal and TID was 1.08. In the absence of any significant provoked ischemia with a remote apical infarct, I do not think she needs to do a cardiac catheterization in this COVID season. She is found to be anemic with hemoglobin of 7.5 with normochromic normocytic anemia and reticulocyte count was 1.2 and chemistries are normal with 1.25 creatinine and low iron and low iron binding capacity is noted. Ferritin is 706, so I do not think this is iron deficiency, this is more of anemia of chronic disease and probably hypoproliferative anemia and she was seen and was hypoglycemic,h/o diabetes and her hypoglycemia has been corrected. Her creatinine was 1.67, which has come to normal level of 1.25. Dr. Call is a primary physician and stool is negative for culture. Rapid COVID test is negative. Abdominal x-rays, patchy infiltrate in the left lung with left sided effusion. Echo showed a 50% ejection fraction, distended loops of right lower abdomen noted, ileus versus partial obstruction. IMPRESSION: Syncope, hypoglycemia, bradycardia, coronary artery disease, 2 coronary stents, apical infarct, abnormal EKG and troponin elevation. No definite provoked ischemia on myocardial perfusion scan, anemia of chronic disease, normochromic normocytic with high ferritin. COVID negative status. PLAN: At this time, management of her chronic medical problems such as anemia, may require blood transfusion to improve her oxygen carrying capacity and probably can be sent to the [place] [facility] on optimized medical therapy and if she gets bradycardic again, then may consider a pacer, but at the present time, the rate is around 60-65 and she has no provoked ischemia on myocardial perfusion scan. Elda Otero MD DR: Hang JOB# [id number] MIMI
[2020-10-19] MEDS: VENTOLIN HFA IH PRN (17:18)
[2020-10-19] MEDS: COREG PO SCH ×2 (18:43→20:10)
--- NOTE | 2020-10-19 18:58 | NUR ---
Immolium given as per order effective, no more BM after patient stable endorsed to night shif nurse .
[2020-10-19] MEDS: SINGULAIR PO SCH (20:10)
[2020-10-19] MEDS: LIPITOR PO SCH (20:10)
[2020-10-19] MEDS: DESYREL PO SCH (20:10)
[2020-10-19] MEDS: ZOLOFT PO SCH (20:10)
--- NOTE | 2020-10-19 22:08 | NUR ---
TELEMETRY Pt has been on investigator internal revenue since admission but is now on bedside telemetry
[2020-10-20 01:14] VITALS: BP 148/71
[2020-10-20 04:19] VITALS: BP 122/71
--- NOTE | 2020-10-20 05:12 | PNH ---
DATE: 10/19/2020 SUBJECTIVE: The patient is doing well. She has abnormal myocardial perfusion scan with a fixed apical defect, no provoked ischemia, 50% ejection fraction, troponin elevation and came with history of hypoglycemia, syncope, history of seizure disorder, COPD and coronary artery disease, 2 coronary stents and she received 2 units of packed cell. The hemoglobin is improved. A stool guaiac was negative. OBJECTIVE: Temperature 97.9, pulse of 79. She was bradycardic, but I think lowering the dose of Coreg has helped, 122/60 blood pressure and 95 saturation. She is on 4-5 liters of nasal cannula, requires chronic oxygen therapy. Intake and output poorly documented on the chart. Cardiopulmonary status is stable. She is afebrile. LABORATORY DATA: White count of 6.6, 9.5 hemoglobin post-blood transfusion. It had gone down to 7.5 and chemistries were showing a BUN of 6 and a creatinine of 1.3, glucose is 150-160. IMPRESSION: Near syncope, hypoglycemia, troponin elevation, possible non-ST elevation myocardial infarction, apical fixed defect on myocardial perfusion scan, no provoked ischemia, normochromic normocytic anemia of chronic disease. Guaiac negative. Post-blood transfusion. Chronic obstructive pulmonary disease. PLAN: At this time, Dr. Call will discharge her on 10/20/2020. Laxmichand MD MARIA ALEJANDRA Otero: GLYNN/sania JOB# [id number]
[2020-10-20 05:35] LABS: BASOPHIL # 0.1 10^3/uL (0.0-0.1); EOSINOPHIL # 0.2 10^3/uL (0.0-0.2); EOSINOPHIL % 2.7 % (0.0-5.0); LYMPHOCYTES % 25.6 % (24.0-44.0); MEAN CORP HGB 30.7 pg (26-34); MONOCYTES # 0.8 10^3/uL (0.3-0.8); MONOCYTES % 11.8 % (5.0-12.0); NEUTROPHIL # 4.1 10^3/uL (1.8-7.7); NEUTROPHILS % 58.6 % (41.0-85.0); PLATELET COUNT 309 10^3/uL (150-400); RED CELL DISTRIBUTION WIDTH 16.1 % (11.5-14.5)
[2020-10-20 06:28] LABS: CALCIUM 9.2 mg/dL (8.4-10.5); CARBON DIOXIDE 18.5 mmol/L (20.0-32)
[2020-10-20 08:11] VITALS: BP 114/63
[2020-10-20] MEDS: ASPIRIN EC PO SCH (08:32)
[2020-10-20] MEDS: KEPPRA PO SCH (08:32)
[2020-10-20] MEDS: THERA PO SCH (08:32)
[2020-10-20] MEDS: COREG PO SCH (08:33)
[2020-10-20] MEDS: PROTONIX PO SCH (08:34)
[2020-10-20] MEDS: BRILINTA PO SCH (08:43)
[2020-10-20] MEDS ORDERED: ONDA4TAB13 PO (08:55)
--- NOTE | 2020-10-20 09:33 | PRM.DC ---
DISCHARGE SUMMARY DISCHARGE SUMMARY DATE OF ADMISSION: October 16, 2020 DATE OF DISCHARGE: October 20, 2020 ADMITTING DIAGNOSES: Syncope with bradycardia and hypoglycemia DISCHARGE DIAGNOSES: Non-ST segment elevation NJ, type 2 diabetes mellitus with hypoglycemia secondary to poor p.o. intake, coronary artery disease, COPD, hypertension, history of CVA DISCHARGE DISPOSITION: Patient is discharged back to [facility] DISCHARGE CONDITION: Stable HOSPITAL COURSE: 70-year-old female who was found to have altered mental status at the fpc and her blood sugar initially was at 50. EMS arrived and gave her an amp of D50 and she did wake up. Her blood pressure was on the low side coming into the hospital and she was bradycardic with a heart rate of 40. She was on a beta-kevin at high doses that was noted at the time. She was a dmitted to the hospital and her troponins trended up with a maximum of greater than 2. She had no chest pains at the time and no ST segment elevations on EKG. Cardiology was consulted and a Lexiscan stress test was done that showed an apical fixed defect with a normal ejection fraction at the time. The recommendation was made to optimize medical management on her at this point. She is on aspirin and Brilinta now. Her blood pressures have been on the low side I restarted her back on her Coreg but at the lowest dose at this point. Her heart rates have been in the 60s and 70s currently. She had been on Lantus for her diabetes but since she had port p.o. intake I held this in the hospital her blood sugars are ranging anywhere between 100 220 currently. She does have underlying COPD and that has been stable in the hospital she did have some coughing spells with some vomiting issues but that is subsiding. She had a normocytic anemia coming into the hospital and her hemoglobin did drop down to 7.5. With her acute coronary syndrome I did transfuse her with a unit of blood and her hemoglobin is hanging around 9-9.5 currently. Stool studies have been negative and lab work shows this is an anemia of chronic disease currently. DIET: 1600 ADA cardiac ACTIVITY: As tolerated OTHER: Accu-Cheks before meals and at bedtime MEDICATIONS: 1. Resume her usual fpc medications with the exception of stopping her folic acid, holding her hydralazine, holding her Lantus, holding her Entresto 2. She is to continue her Brilinta and aspirin. 3. Zofran 4 mg sublingual 3 times a day as needed. FOLLOW-UP: Follow-up with her primary care provider, Dr. Otero, in 2 weeks JAYLEN WILLOUGHBY MD Oct 20, 2020 09:33
--- NOTE | 2020-10-20 10:23 | NUR ---
Assumed care of patient 0934, patient is in bed aox4 denies pain. Vitals stable, no sign of distress noted. patient pending discharge. will continue to monitor. 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
--- NOTE | 2020-10-20 10:31 | NUR ---
Denisha care provided, PIV removed and pressure held to site no bleeding noted. Report called into facility [phone] spoke to vera Elias LVN. vitals stable 114/63 bg 96 o2 98% ra resp 18 pulse 74 temp 97.3 , patient escorted out unit in wheelchair by transport service of [facility]. In stable condition. 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
[2020-10-20 10:37] VITALS: BP 114/63
== END 2020-10-20 10:03 | DRG 281 ==
LOC: ER 09:11 → EDBD 09:11 → OBSVTOIN 13:04 → INTOOBSV 13:04 → UNDOADMOB 13:04 → MS 13:04 → UNDODISOB 10-20 10:03
PROVIDERS: ADMIT Pediatrics; ATTEND Pediatrics
DX: I21.4 Non-ST elevation (NSTEMI) myocardial infarction (principal); K56.7 Ileus, unspecified; D63.8 Anemia in other chronic diseases classified elsewhere; E11.649 Type 2 diabetes mellitus with hypoglycemia without coma; R00.1 Bradycardia, unspecified; I11.0 Hypertensive heart disease with heart failure; I25.10 Atherosclerotic heart disease of native coronary artery without angina pectoris; I50.9 Heart failure, unspecified; J44.9 Chronic obstructive pulmonary disease, unspecified; Z20.828 Contact with and (suspected) exposure to other viral communicable diseases; Z79.4 Long term (current) use of insulin; I25.2 Old myocardial infarction; Z79.82 Long term (current) use of aspirin; Z86.73 Personal history of transient ischemic attack (TIA), and cerebral infarction without residual deficits; Z87.891 Personal history of nicotine dependence; Z90.710 Acquired absence of both cervix and uterus; Z95.5 Presence of coronary angioplasty implant and graft; Z79.899 Other long term (current) drug therapy; Z88.5 Allergy status to narcotic agent
CPT/HCPCS: 36415; 71045; 71250; 74019; 78452; 80048; 80053; 82272; 82550; 82553; 82607; 82728; 82746; 82947; 82948; 83550; 83735; 83880; 84484; 85014; 85018; 85025; 85045; 85610; 85730; 86885; 86900; 86901; 86923; 87426; 93005; 93017; 93306; 94640; 97162; A9500; C9113; G0378; J0461; J1650; J2405; J2785; J3475; J3490; J7030; J7050; J7070; J7611; P9016; 97530-GP; J0280; J7060

== ENCOUNTER → 2020-11-01 | Outpatient (CLI) | payer MEDICARE, MEDICAID ==
[~2020-11-01] MED LIST changes: +CARV6.252 PO; +COREG ONE; +ENTRESTO 24 MG-26 MG TABLET PO ONE; +KEPPRA ONE; +METF500T3 PO; -MONT10TA11 PO; +MONT10TA95 PO; +ONDA4TAB13 PO; +PLAVIX ONE; +PROTONIX PO ONE; +ZOLOFT ONE
[2020-11-02 09:08] LABS: MEAN CORP HGB 30.5 pg (26-34); RED CELL DISTRIBUTION WIDTH 17.5 % (11.5-14.5)
[2020-11-02 09:12] LABS: CALCIUM 9.2 mg/dL (8.4-10.5); CARBON DIOXIDE 21.4 mmol/L (20.0-32)
== END | disposition home or self-care (01) ==
LOC: NPLAB 15:53
PROVIDERS: ATTEND Family Medicine
DX: J96.90 Respiratory failure, unspecified, unspecified whether with hypoxia or hypercapnia (principal)
CPT/HCPCS: 36415; 80053; 85027

== ENCOUNTER 2020-11-02 14:18 | Inpatient (IN) | payer MEDICARE, MEDICAID ==
[~2020-11-02] VITALS: Ht 167.6 cm; Wt 52.6 kg
[~2020-11-02 14:18] MED LIST changes: -CARV6.252 PO; -COREG ONE; -ENTRESTO 24 MG-26 MG TABLET PO ONE; -KEPPRA ONE; -METF500T3 PO; -PLAVIX ONE; -PROTONIX PO ONE; -ZOLOFT ONE
--- NOTE | 2020-11-02 15:20 | NUR ---
ARRIVAL TO UNIT PT ARRIVED TO UNIT VIA [facility] VAN FROM DR. TORRES OFFICE A DIRECT ADMIT. ASSISTED PT TO W/C, ORIENTATION GIVEN TO PT R/T ROOM AND UNIT. PT REQUIRES X2 ASSISTANCE INTO BED, CHANGED INTO GOWN. PT DENIES PAIN AT THIS TIME. BANDAGE NOTED TO RIGHT FOREARM, PT STATES THAT SHE HAS A SKIN TEAR R/T HITTING IT PRIOR TO ARRIVAL TO HOSPITAL. [facility] STAFF REPORTS THAT PT WAS TESTED ON Saturday10/31/20, THE TESTS RESULTS WERE NEGATIVE. UNABLE TO TELL THIS NURSE IF THE TEST WAS A ANTIGEN OR PCR TEST. PT ALERT, ORIENTED, ON ROOM AIR. CALL LIGHT LEFT WITHIN REACH, BED RAILS UPX2, BED IN LOW POSITION.
--- NOTE | 2020-11-02 15:31 | PCM.EKG ---
[facility] Test Date: 2020-11-02 Test Time: 15:29:18 Pat Name: HERBER ZARATE Department: Room: 329 A Gender: F Book Trimmer: ROSMERY : 1950 Requested By: TERRENCE TORRES Order Number: [id number] Reading MD: Measurements Intervals [place] Rate: 59 P: 58 VT: 138 QRS: 42 QRSD: 73 T: 241 QT: 563 QTc: 558 Interpretive Statements Sinus rhythm Abnormal T, probable ischemia, widespread Prolonged QT interval Compared to ECG 10/18/2020 05:21:05 T-wave abnormality now present Ventricular premature complex(es) no longer present Possible ischemia still present Please click the below link to view image of tracing.
[2020-11-02 16:44] LABS: BASOPHIL # 0.1 10^3/uL (0.0-0.1); BASOPHIL % 0.8 % (0.0-0.2); EOSINOPHIL # 0.2 10^3/uL (0.0-0.2); EOSINOPHIL % 2.9 % (0.0-5.0); LYMPHOCYTES # 2.02 10^3/uL1 (1.0-4.8); LYMPHOCYTES % 28.2 % (24.0-44.0); MEAN CORP HGB 30.9 pg (26-34); MONOCYTES # 0.4 10^3/uL (0.3-0.8); MONOCYTES % 5.9 % (5.0-12.0); NEUTROPHIL # 4.4 10^3/uL (1.8-7.7); NEUTROPHILS % 61.9 % (41.0-85.0); PLATELET COUNT 279 10^3/uL (150-400); RED CELL DISTRIBUTION WIDTH 17.2 % (11.5-14.5)
--- NOTE | 2020-11-02 16:49 | DIREP ---
PROCEDURE:CHEST 1 VIEW COMPARISON:[facility], CR, XRAY CHEST SINGLE VW, 10/16/2020, 09:40 AM. [facility], CR, XRAY CHEST SINGLE VW, 09/29/2020, 05:39 AM. [facility], CR, XRAY CHEST SINGLE VW, 09/27/2020, 09:24 AM. INDICATIONS:chf FINDINGS: LUNGS/PLEURA:Hyperexpansion of the lungs with coarse interstitial markings which may be seen in setting of chronic lung disease. No focal consolidation. No overt edema. Right costophrenic angle is sharp. Left costophrenic angle is obscured. Improving small right pleural effusion. No pneumothorax. VASCULATURE:Atherosclerotic calcification of the aortic arch. CARDIAC:Heart is normal in size for technique. MEDIASTINUM:Midline in position. BONES:Stable. OTHER:Negative. CONCLUSION: 1. No focal consolidation or overt edema. 2. Improving small right pleural effusion. Dictated by: Avery Carroll MD on 11/02/2020 at 04:46 PM
[2020-11-02 17:14] LABS: CALCIUM 9.1 mg/dL (8.4-10.5); CARBON DIOXIDE 20.1 mmol/L (20.0-32)
[2020-11-02 19:44] VITALS: BP 116/47
[2020-11-02] MEDS: LANTUS SQ SCH (20:51)
[2020-11-02] MEDS: KEPPRA PO SCH (21:00)
[2020-11-02] MEDS: COREG PO SCH (21:00)
[2020-11-02] MEDS: ENTRESTO 24 MG-26 MG TABLET PO SCH (21:00)
[2020-11-02] MEDS: DESYREL PO SCH (21:00)
[2020-11-02] MEDS: LIPITOR PO SCH (21:00)
[2020-11-02] MEDS: SINGULAIR PO SCH (21:00)
[2020-11-03] VITALS (7 sets, daily range): BP systolic 102–134; BP diastolic 45–67
--- NOTE | 2020-11-03 06:09 | NUR ---
This nurse was advised @ 0518 by tech the patient blood sugar check was 14. This nurse and tech gave the patient 8oz OJ and snack as well as notified charge out clerk Debbie who advised the MD protocol advised to give pt OJ and snack thereafter recheck the blood sugar in 30 mins. This patient presented clammy skin and was responsive. VS was wnl. Will continue to monitor,
--- NOTE | 2020-11-03 06:37 | NUR ---
This nurse rechecked the patient BS that increased to 50 at this time. stone repairer Emerita advised and instructed per MD to give pt OJ and snack again thereafter recheck in 30 mins. Stat BG labs were ordered as well. Will continue to monitor.
[2020-11-03] MEDS: COREG PO SCH ×2 (08:20→20:34)
[2020-11-03] MEDS: KEPPRA PO SCH ×2 (08:21→20:33)
[2020-11-03] MEDS: PROTONIX PO SCH (08:21)
[2020-11-03] MEDS: ZOLOFT PO SCH (08:21)
[2020-11-03] MEDS: PLAVIX PO SCH (08:21)
[2020-11-03] MEDS: ENTRESTO 24 MG-26 MG TABLET PO SCH ×2 (08:21→20:33)
[2020-11-03] MEDS ORDERED: DEXAMETHASONE 10 MG/ML VIAL IV SCH (09:00)
[2020-11-03 11:38] LABS: CARBON DIOXIDE 18.8 mmol/L (20.0-32)
--- NOTE | 2020-11-03 11:50 | NUR ---
DISCHARGE PLAN PT IS CURRENTLY A SKILLED PT AT [facility]. IT IS HER REQUEST TO RETURN BACK TO [facility] UPON DC.
--- NOTE | 2020-11-03 12:50 | NUR ---
patient transferred top room 236 A, bedside shift report given to TRINITY Wetzel, care transferred
--- NOTE | 2020-11-03 12:58 | NUR ---
Pt arrive to unit at 1245. Alert and orientated x4. Pt denies pain. Vitals stable. Hooked to a telemonitor. Will continue to monitor.
--- NOTE | 2020-11-03 15:40 | PCM.EKG ---
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
[2020-11-03] MEDS: NORCO 5MG PO PRN ×2 (17:00→21:31)
[2020-11-03] MEDS: DESYREL PO SCH (20:33)
[2020-11-03] MEDS: SINGULAIR PO SCH (20:33)
[2020-11-03] MEDS: LIPITOR PO SCH (20:33)
--- NOTE | 2020-11-03 20:39 | HPH ---
ADMIT DATE: 11/02/2020 CHIEF COMPLAINT: Shortness of breath, syncopal episode, very abnormal EKG. HISTORY OF PRESENT ILLNESS: The patient is a 70-year-old white female who [place] and had a prior CVA, generalized weakness, shortness of breath and syncopal episode, was in the hospital recently and had a troponin elevation and was thought to have an apical infarct with fixed defect on myocardial perfusion scan withno definite manifestations of provoked ischemia, now presented with symptoms of shortness of breath and clinical manifestations of congestive heart failure with EKG showing diffuse symmetrical T-inversions all across the precordium consistent with possible subendocardial infarction and she had bradycardia with sinus bradycardia in the past. At the present time, rate is acceptable. Hence, admitted with diagnosis of syncope, weakness, overt heart failure, prior history of 2 coronary stents and rule out acute coronary event based on abnormal EKG with QT prolongation over 502 milliseconds for further evaluation and management. ALLERGIES: None known. MEDICATIONS: She has been on Keppra 500 mg twice a day, Singulair 10 mg once a day, Zoloft 100 mg once a day, nitroglycerin on a p.r.n. basis, trazodone 75 mg once a day, Breo inhaler [] daily, hydralazine 25 mg 3 times a day, Lantus insulin 20 units daily, Entresto 24/26 one tablet twice a day. Coreg and hydralazine were not started. PAST MEDICAL HISTORY: History of COPD, CAD, diabetes, congestive heart failure, TIA, appendectomy, cholecystectomy, hysterectomy, cardiac catheterization, 2 coronary stents, recent admission with bradycardia and was taken off Coreg 12.5 mg twice a day and reduced to 3.125 mg twice a day. SOCIAL HISTORY: History of tobacco use in the past. No history of any alcohol abuse. FAMILY HISTORY: Essentially noncontributory. PHYSICAL EXAMINATION: GENERAL: She was alert, awake, oriented. She appeared to be 165 cm and 70 kg, BMI is 27. VITAL SIGNS: Pulse was about 50, blood pressure was 110/60, respirations 18, saturation 94-95%. HEENT: Unremarkable. NECK: No JVD, no carotid bruits. LUNGS: Poor air entry bilaterally, emphysematous chest. HEART: S1 and S2 normal. No murmurs were audible. ABDOMEN: Soft, nontender. EXTREMITIES: Distal pulses poorly felt. NEUROLOGIC: Had speech abnormality and has right-sided old hemiparesis. IMPRESSION: Subendocardial infarction, acute on chronic systolic heart failure, QT prolongation, syncope, bradycardia. PLAN: At this time, probably requires a cardiac catheterization as creatinine was elevated to 1.67 on last occasion, so if the creatinine is improved, cardiac catheterization would be advisable and assess for an acute coronary event. Elda Otero MD DR: GLYNN/sania JOB# [id number] MIMI
[2020-11-03] MEDS ORDERED: KLOR-CON 10 PO STA (20:57)
[2020-11-03] MEDS: LANTUS SQ SCH (21:00)
[2020-11-03] MEDS ORDERED: NS 1000ML/KCL 20MEQ 1,000 ML IV SCH (21:00)
--- NOTE | 2020-11-04 00:13 | PNH ---
DATE: 11/03/2020 SUBJECTIVE: The patient is doing well. She is not having any chest pain. Her EKG was showing extensive T inversion all across the precordium and inferior leads consistent with subendocardial infarction. OBJECTIVE: VITAL SIGNS: Stable, 98 temperature, pulse is 62, respirations 18, 134/55 blood pressure, 97 saturation on room air. LABORATORY DATA: Her CBC was normal. Chemistries were normal. Creatinine is 1.10. She did become hypoglycemic, which has improved. Low albumin and protein is noted. Her proBNP was 26,489, so she is not in congestive heart failure. D-dimer was 0.93. Chest x-ray had improving right pleural effusion. IMPRESSION: EKG manifestations or subendocardial injury, prior coronary stents. PLAN: Due to the catheterization laboratory technician schedule, one could not get her into the catheterization laboratory technician this morning. We will do a heart catheterization on 11/04/2020 and assess her coronary anatomy. Elda Otero MD DR: GLYNN/sania JOB# [id number]
[2020-11-04 01:52] VITALS: BP 113/55
[2020-11-04 05:29] VITALS: BP 160/75
[2020-11-04 06:26] LABS: RED CELL DISTRIBUTION WIDTH 17.3 % (11.5-14.5)
[2020-11-04 06:39] LABS: CALCIUM 8.5 mg/dL (8.4-10.5); CARBON DIOXIDE 22.8 mmol/L (20.0-32)
[2020-11-04] MEDS ORDERED: NS 1000ML 1,000 ML ONE ×2 (06:44→08:12)
[2020-11-04] MEDS ORDERED: HEPARIN ONE (06:44)
[2020-11-04] MEDS ORDERED: VERSED ONE (06:45)
[2020-11-04] MEDS ORDERED: XYLOCAINE ONE (06:45)
[2020-11-04] MEDS ORDERED: SUBLIMAZE ONE ×2 (06:45→08:10)
[2020-11-04 08:00] VITALS: BP 158/72
[2020-11-04] MEDS: ENTRESTO 24 MG-26 MG TABLET PO SCH (10:06)
[2020-11-04] MEDS: COREG PO SCH (10:06)
[2020-11-04] MEDS: ZOLOFT PO SCH (10:07)
[2020-11-04] MEDS: PROTONIX PO SCH (10:07)
[2020-11-04] MEDS: KEPPRA PO SCH (10:07)
[2020-11-04] MEDS: PLAVIX PO SCH (10:07)
--- NOTE | 2020-11-04 10:11 | CCRH ---
DATE OF SERVICE: 11/04/2020 HEART CATHETER REPORT AGE: 70-year-old female. PRECATHETERIZATION DIAGNOSES: EKG manifestation of non-ST elevation myocardial infarction in the anterior leads with symmetrical T inversion, history of shortness of breath, known coronary artery disease with LAD and RCA stent done about 3 years ago, assess coronary anatomy. POSTCATHETERIZATION DIAGNOSIS: Short length left main, fully patent, type 3 LAD with tortuosity with minimal luminal irregularity without any flow obstructive lesion. Circumflex is a large codominant vessel with proximal stent, fully patent and there is mild luminal irregularity in the mid segment of the circumflex. Retrograde collaterals from the left coronary artery is seen, going into the direction of the right coronary artery. Right coronary artery has got a proximal stent, which is 100% occluded. Right coronary artery is a CLERICAL CLERK, complete total occlusion. There are antegrade collaterals from the right coronary artery filling the right ventricular branch and a conus branch. Distal retrograde collaterals were noted. Left ventricle is mildly dilated with LVEDP of 15-20 mm with good wall contractility, ejection fraction is 50%. ANESTHESIA: Versed 1 mg IV and fentanyl 25 mcg IV. ANTICOAGULATION: Heparin 2000 units intra-arterially, 2000 units in the flush solution, 1000 units in the dye solution. Dye use is Omnipaque. Total amount is 95 mL. CATHETERS: JL4 6-Serbian, 5-Serbian right Ariana catheter, 6-Serbian angled pigtail catheter. ARTERIAL TIME: 10 minutes. FLUOROSCOPIC TIME: 2.9 minutes. PROCEDURES: Left heart catheterization, bilateral selective coronary arteriography, left ventriculography by right femoral Gerry approach. STANDARD NARRATION OF THE PROCEDURE: LVEDP is 20 mm, LV pressure 155/20, femoral artery pressure 135/57 with a mean of 75. No gradient across the aorta on pullback of the central catheter. FINAL CONCLUSION: Patent circumflex stent, patent LAD short left main. CLERICAL CLERK of the right coronary artery with antegrade and retrograde collaterals and intact LV systolic function. RECOMMENDATIONS: Optimization of medical therapy. Laxmichand MD Shanna DR: GLYNN/sania JOB# [id number]
[2020-11-04] MEDS ORDERED: SACU1TAB PO (10:41)
[2020-11-04] MEDS ORDERED: METF500T3 PO (10:41)
[2020-11-04] MEDS ORDERED: CARV6.252 PO (10:41)
[2020-11-04] MEDS ORDERED: CLOP75TA PO (10:41)
[2020-11-04 13:44] VITALS: BP 149/59
--- NOTE | 2020-11-04 13:51 | DSH ---
DATE OF DISCHARGE: 11/04/2020 FINAL DIAGNOSES: Anterior subendocardial injury or non-ST elevation myocardial infarction based on EKG, shortness of breath, hypertension, hypertensive heart disease, chronic diastolic heart failure, RCA stent occlusion, PHARMACY INNOVATION ASSISTANT RCA, patent circumflex stent, LAD mild luminal irregularity, ejection fraction 50%, COPD, history of prior stroke, history of prior bradycardia, sick sinus syndrome. Please refer to my history and physical to the point of my impression. HOSPITAL COURSE: The patient is a 70-year-old white female who was admitted 3-4 weeks ago. At that time, she had manifestations of crescendo angina and has had 2 coronary stents placed. Perfusion study was done and fixed apical defect was noted, but no provoked ischemia, documented ejection fraction was between 45-50% and she was sent home on medical therapy, came into the office today complaining of shortness of breath. She denied definite chest pain, but was having an uncomfortable feeling in the chest and she had deep symmetrical T inversion all across the precordium suggestive of new changes or anterior subendocardial injury versus ischemia and she was admitted in the hospital. Troponins were negative. Cardiac catheterization done on 11/04/2020 and circumflex stent was patent, RCA total occlusion with a proximal stent being 100% occluded. Collateralization of the distal RCA from antegrade and retrograde collaterals is documented and LAD was patent and LV ejection fraction was around 45-50% and there is a small area of the apical inferior area, which seems to be hypokinetic. She has COPD also. Cath site was clean. She had a normal CBC. Chemistries were normal. Potassium was improved. No protein albumin was documented. D-dimer was 0.93. COVID was negative. H1N1 negative and she is being discharged to [facility]. She had a prior stroke. DISCHARGE MEDICATIONS: She will be on Coreg 6.25 mg twice a day, Plavix 75 mg once a day, metformin 500 mg once a day, Entresto one tablet twice a day, albuterol nebulizer treatment on p.r.n. basis, aspirin 81 mg once a day, Lipitor 40 mg once a day, history of seizures on Keppra 500 mg twice a day, Creon capsule 1 daily, Singulair 10 mg once a day, multivitamin once a day, nicotine patch because she has a history of smoking, nitroglycerin on p.r.n. basis and ondansetron 4 mg t.i.d. for nausea, Protonix 40 mg once a day, Zoloft 100 mg once a day, trazodone 50 mg once a day, uses Anora Ellipta 1 puff daily for her COPD. I did stop her Coreg 12.5 mg and I have used insulin for short term while she was in the hospital and I will have a telemedicine visit in the office in 2 weeks. Laxmichand MD Shanna DR: GLYNN/sania JOB# [id number]
--- NOTE | 2020-11-04 14:10 | DSH ---
DATE OF DISCHARGE: 11/04/2020 HOSPITAL COURSE: The patient is a 70-year-old female came with anterior subendocardial injury pattern, circumflex and RCA stent. NETWORK CONTRACTOR of the RCA, circumflex stent patent. LAD, tortuous patent. Ejection fraction of 45-50%, hypertension, COPD. Post-cath wound site looks good. Discharge planning today. Laxmichand MD Shanna DR: GLYNN/sania JOB# [id number]
[2020-11-04 14:30] VITALS: BP 148/69
--- NOTE | 2020-11-04 15:23 | NUR ---
Patient discharge to [facility] via wheelchair with facility staff stable after discharge instructions provided no hematoma or pain noted at the procedure site.
== END 2020-11-04 15:04 | DRG 280 ==
LOC: MS 14:18
PROVIDERS: ADMIT Specialist; ATTEND Specialist
PROC: B2151ZZ Fluoroscopy of Left Heart using Low Osmolar Contrast (ICD-10-PCS; 2020-11-04)
PROC: B2111ZZ Fluoroscopy of Multiple Coronary Arteries using Low Osmolar Contrast (ICD-10-PCS; 2020-11-04)
PROC: B41F1ZZ Fluoroscopy of Right Lower Extremity Arteries using Low Osmolar Contrast (ICD-10-PCS; 2020-11-04)
PROC: 4A023N7 Measurement of Cardiac Sampling and Pressure, Left Heart, Percutaneous Approach (ICD-10-PCS; principal; 2020-11-04 08:00)
DX: T82.855A Stenosis of coronary artery stent, initial encounter (principal); I21.4 Non-ST elevation (NSTEMI) myocardial infarction; I50.43 Acute on chronic combined systolic (congestive) and diastolic (congestive) heart failure; I11.0 Hypertensive heart disease with heart failure; E11.9 Type 2 diabetes mellitus without complications; J44.9 Chronic obstructive pulmonary disease, unspecified; I25.10 Atherosclerotic heart disease of native coronary artery without angina pectoris; I49.5 Sick sinus syndrome; Z20.828 Contact with and (suspected) exposure to other viral communicable diseases; Y84.0 Cardiac catheterization as the cause of abnormal reaction of the patient, or of later complication, without mention of misadventure at the time of the procedure; Z86.73 Personal history of transient ischemic attack (TIA), and cerebral infarction without residual deficits; Z87.891 Personal history of nicotine dependence; Z90.710 Acquired absence of both cervix and uterus; Z95.5 Presence of coronary angioplasty implant and graft; Y92.89 Other specified places as the place of occurrence of the external cause; Z79.899 Other long term (current) drug therapy; Z90.49 Acquired absence of other specified parts of digestive tract
CPT/HCPCS: 36415; 71045; 80053; 82947; 82948; 83735; 83880; 84484; 85025; 85027; 85379; 85610; 87426; 87633; 93005; 93458; 99152; 99153; C1760; C1894; G0378; J1100; J1644; J2250; J3010; J3490; J7030; Q9967; C1769

== ENCOUNTER → 2020-11-23 | Outpatient (CLI) | payer MEDICARE, MEDICAID ==
[~2020-11-23] MED LIST changes: +CARV6.252 PO; +METF500T3 PO
[2020-11-23 08:43] LABS: MEAN CORP HGB 31.8 pg (26-34); RED CELL DISTRIBUTION WIDTH 17.4 % (11.5-14.5)
[2020-11-23 09:07] LABS: CARBON DIOXIDE 25.8 mmol/L (20.0-32)
== END | disposition home or self-care (01) ==
LOC: NPLAB 04:40
PROVIDERS: ATTEND Family Medicine
DX: J96.90 Respiratory failure, unspecified, unspecified whether with hypoxia or hypercapnia (principal)
CPT/HCPCS: 80053; 85027

== ENCOUNTER → 2020-11-29 | Outpatient (CLI) | payer MEDICARE, MEDICAID ==
[2020-11-29 08:40] LABS: BASOPHIL # 0.1 10^3/uL (0.0-0.1); EOSINOPHIL # 0.4 10^3/uL (0.0-0.2); EOSINOPHIL % 6.3 % (0.0-5.0); LYMPHOCYTES # 2.54 10^3/uL1 (1.0-4.8); LYMPHOCYTES % 42.1 % (24.0-44.0); MEAN CORP HGB 32.4 pg (26-34); MONOCYTES # 0.7 10^3/uL (0.3-0.8); MONOCYTES % 11.8 % (5.0-12.0); NEUTROPHIL # 2.3 10^3/uL (1.8-7.7); RED CELL DISTRIBUTION WIDTH 17.1 % (11.5-14.5)
[2020-11-29 08:48] LABS: CALCIUM 8.9 mg/dL (8.4-10.5); CARBON DIOXIDE 26.1 mmol/L (20.0-32)
== END | disposition home or self-care (01) ==
LOC: NPLAB 05:05
PROVIDERS: ATTEND Family Medicine
DX: J96.90 Respiratory failure, unspecified, unspecified whether with hypoxia or hypercapnia (principal)
CPT/HCPCS: 80053; 85025